=== PATIENT | female | born 1935 | race Caucasian/White ===

== ENCOUNTER → 2017-11-04 08:26 | Outpatient (CLI) | payer MEDICARE, OTHER, SELFPAY ==
[2017-11-04 13:36] LABS: INR 2.3 (1.0-3.5); Prothrombin Time 22.1 sec (9.3-10.8)
[2017-11-04 19:02] LABS: Chloride 95 mmol/L (98-107); Potassium 4.4 mmol/L (3.5-5.1); Sodium 129 mmol/L (136-145)
== END ==
PROVIDERS: PCP Internal Medicine; Visit Provider Family Medicine
DX: I10 Essential (primary) hypertension (principal); I48.91 Unspecified atrial fibrillation; Z79.01 Long term (current) use of anticoagulants
CPT/HCPCS: 36415; 80051; 85610

== ENCOUNTER → 2017-12-07 13:06 | Outpatient (BNVA) | payer MEDICARE, OTHER, SELFPAY | PROVIDERS: PCP Internal Medicine; Visit Provider Student in an Organized Health Care Education/Training Program | DX: I21.3 ST elevation (STEMI) myocardial infarction of unspecified site (principal); I50.20 Unspecified systolic (congestive) heart failure; I11.0 Hypertensive heart disease with heart failure; I48.0 Paroxysmal atrial fibrillation; J45.909 Unspecified asthma, uncomplicated | CPT/HCPCS: 99214 ==

== ENCOUNTER 2017-12-07 14:15 | Outpatient (CLI) | payer MEDICARE, OTHER, SELFPAY | END 2017-12-07 14:35 | PROVIDERS: PCP Internal Medicine; Visit Provider Student in an Organized Health Care Education/Training Program | DX: I48.91 Unspecified atrial fibrillation (principal); I25.2 Old myocardial infarction; Z95.5 Presence of coronary angioplasty implant and graft; I25.10 Atherosclerotic heart disease of native coronary artery without angina pectoris | CPT/HCPCS: 99214; 93005; 93010 ==

== ENCOUNTER 2017-12-19 11:19 | Outpatient (CLI) | payer MEDICARE, OTHER, SELFPAY ==
[2017-12-19 12:20] LABS: INR 2.6 (1.0-3.5); Prothrombin Time 24.5 sec (9.3-10.8)
[2017-12-19 12:40] LABS: Hemoglobin A1C 7.6 % (4.5-6.2)
[2017-12-19 13:01] LABS: Sodium 128 mmol/L (136-145)
== END 2017-12-19 11:39 ==
PROVIDERS: PCP Family Medicine; Visit Provider Family Medicine
DX: E11.65 Type 2 diabetes mellitus with hyperglycemia (principal); E87.1 Hypo-osmolality and hyponatremia; I48.91 Unspecified atrial fibrillation; Z79.01 Long term (current) use of anticoagulants
CPT/HCPCS: 36415; 83036; 84295; 85610

== ENCOUNTER 2018-02-01 10:43 | Outpatient (CLI) | payer MEDICARE, OTHER, SELFPAY ==
[2018-02-01 12:41] LABS: INR 2.9 (1.0-3.5); Prothrombin Time 27.3 sec (9.3-10.8)
== END 2018-02-01 11:03 ==
PROVIDERS: PCP Internal Medicine; Visit Provider Family Medicine
DX: I48.91 Unspecified atrial fibrillation (principal); Z79.01 Long term (current) use of anticoagulants
CPT/HCPCS: 36415; 85610

== ENCOUNTER 2018-03-07 13:13 | Outpatient (CLI) | payer MEDICARE, OTHER, SELFPAY ==
[2018-03-07 13:50] LABS: Hemoglobin A1C 8.2 % (4.5-6.2)
[2018-03-07 13:54] LABS: INR 2.6 (1.0-3.5); Prothrombin Time 24.2 sec (9.3-10.8)
[2018-03-07 14:42] LABS: Sodium 130 mmol/L (136-145)
== END 2018-03-07 13:33 ==
PROVIDERS: PCP Internal Medicine; Visit Provider Family Medicine
DX: E11.65 Type 2 diabetes mellitus with hyperglycemia (principal); E87.1 Hypo-osmolality and hyponatremia; I48.91 Unspecified atrial fibrillation; Z79.01 Long term (current) use of anticoagulants
CPT/HCPCS: 36415; 83036; 84295; 85610

== ENCOUNTER 2018-05-03 11:58 | Outpatient (CLI) | payer MEDICARE, OTHER, SELFPAY ==
[2018-05-03 12:52] LABS: INR 2.1 (0.9-1.1); Prothrombin Time 21.5 sec (9.3-11.0)
== END 2018-05-03 12:18 ==
PROVIDERS: PCP Internal Medicine; Visit Provider Family Medicine
DX: I48.91 Unspecified atrial fibrillation (principal); Z79.01 Long term (current) use of anticoagulants
CPT/HCPCS: 36415; 85610

== ENCOUNTER 2018-06-07 12:16 | Outpatient (CLI) | payer MEDICARE, OTHER, SELFPAY | END 2018-06-07 12:36 | PROVIDERS: PCP Internal Medicine; Visit Provider Student in an Organized Health Care Education/Training Program | DX: I25.10 Atherosclerotic heart disease of native coronary artery without angina pectoris (principal); I50.9 Heart failure, unspecified; I48.0 Paroxysmal atrial fibrillation; I10 Essential (primary) hypertension; R53.83 Other fatigue; E11.40 Type 2 diabetes mellitus with diabetic neuropathy, unspecified | CPT/HCPCS: 99214; 93005; 93010 ==

== ENCOUNTER 2018-06-08 08:11 | Outpatient (CLI) | payer MEDICARE, OTHER, SELFPAY ==
[2018-06-08 11:24] LABS: Abs Immature Grans 0.01 k/cumm (0.0-0.09); Absolute Basophil Count 0.04 k/cumm (0.0-0.2); Absolute Eosinophil Count 0.06 k/cumm (0.0-0.7); Absolute Lymphocyte Count 1.85 k/cumm (1.2-3.4); Absolute Monocyte Count 0.64 k/cumm (0.11-0.7); Basophils % 0.6; HCT 36.2 % (36.0-46.0); HGB 12.4 g/dL (12.0-15.5); Immature Grans % 0.2; Lymphocytes % 29.4; Mean Corp. HGB Concentration 34.3 g/dL (32.0-36.0); Mean Corpuscular Hemoglobin 30.5 pg (27.0-33.0); Mean Corpuscular Volume 88.9 fL (80-95); Mean Platelet Volume 13.3 fL (8.0-11.0); Monocytes % 10.2; Neutrophils % 58.6; Platelet Count 190 x1000/uL (130-400); RBC 4.07 m/cumm (4.00-5.20); RBC Distribution Width 13.3 % (11.7-14.6)
[2018-06-08 11:43] LABS: Prothrombin Time 29.9 sec (9.3-11.0)
[2018-06-08 11:57] LABS: Iron 103 ug/dL (50-175)
[2018-06-08 12:20] LABS: ALT 27 U/L (12-78); AST 18 U/L (15-37); Albumin 3.8 g/dL (3.4-5.0); Alkaline Phosphatase 91 U/L (46-116); Anion Gap 10.9 mmol/L (3-11); BUN 31 mg/dL (7-18); Bilirubin, Total 0.5 mg/dL (0.2-1.0); CO2 26.1 mmol/L (21.0-32.0); CREATININE 1.85 mg/dL (0.55-1.02); Calcium 9.4 mg/dL (8.5-10.1); Chloride 94 mmol/L (98-107); Cholesterol 143 mg/dL (50-200); Ferritin 32 ng/mL (8-388); Glucose 342 mg/dL (70-100); HDL Cholesterol 52 mg/dL (40-60); LDL CHOLESTEROL 74 mg/dL (<100); Magnesium 1.9 mg/dL (1.8-2.4); Potassium 4.8 mmol/L (3.5-5.1); Sodium 131 mmol/L (136-145); TSH (W/Ref FT4) 3.38 uIU/mL (0.358-3.74); Total Protein 7.4 g/dL (6.4-8.2); Triglyceride 122 mg/dL (30-150)
[2018-06-08 12:24] LABS: Vitamin D 25 Total 46.6 ng/ml (30-100)
[2018-06-08 12:46] LABS: Bilirubin, Direct 0.15 mg/dL (0.00-0.20); NT-proBNP 165 pg/mL
[2018-06-09 10:27] LABS: Transferrin 241 mg/dL (201-352)
== END 2018-06-08 08:31 ==
PROVIDERS: Family Medicine; Student in an Organized Health Care Education/Training Program; PCP Internal Medicine; Visit Provider Internal Medicine
DX: I25.10 Atherosclerotic heart disease of native coronary artery without angina pectoris (principal); I50.22 Chronic systolic (congestive) heart failure; I48.91 Unspecified atrial fibrillation; I10 Essential (primary) hypertension; R53.83 Other fatigue; Z79.01 Long term (current) use of anticoagulants
CPT/HCPCS: 36415; 80048; 80061; 80076; 82306; 83721; 82728; 83036; 83540; 83735; 83880; 84443; 84466; 85025; 85610

== ENCOUNTER 2018-07-19 10:52 | Outpatient (CLI) | payer MEDICARE, OTHER, SELFPAY ==
[2018-07-19 13:42] LABS: INR 2.1 (0.9-1.1); Prothrombin Time 21.1 sec (9.3-11.0)
== END 2018-07-19 11:12 ==
PROVIDERS: PCP Internal Medicine; Visit Provider Family Medicine
DX: I48.91 Unspecified atrial fibrillation (principal); Z79.01 Long term (current) use of anticoagulants
CPT/HCPCS: 36415; 85610

== ENCOUNTER 2018-08-30 14:54 | Emergency (ER) | payer MEDICARE, OTHER, SELFPAY ==
[2018-08-30] VITALS (32 sets, daily range): BP systolic 89–154; BP diastolic 60–100; PULSE 68–120; RESP 16–24; TEMP 36.6–37.2; O2SAT 96–99
--- NOTE | 2018-08-30 15:09 | W.ED.GENAD ---
Discharge Plan Disposition Patient Disposition: HOME Condition: Stable Discharge Details Chief Complaint: SOB Clinical Impression: Atrial fibrillation with RVR Primary Care Provider: Rad Yeh ED Provider: Dino Cox Natoma Meds and New Rx's Prescriptions: No Action amlodipine 10 mg tablet 10 mg PO DAILY Qty: 90 RF: 3 atorvastatin 40 mg tablet 40 mg PO HS Qty: 90 RF: 4 nitroglycerin 0.4 mg tablet, sublingual 0.4 mg Sublingual Q 5 MIN PRN Qty: 25 RF: 4 pantoprazole 40 mg tablet,delayed release (DR/EC) 40 mg PO DAILY Qty: 90 RF: 4 amiodarone 200 mg tablet 200 mg PO DAILY Qty: 30 RF: 11 spironolactone 50 mg tablet 50 mg PO DAILY Qty: 90 RF: 3 metoprolol succinate 50 mg tablet extended release 24 hr 50 mg PO DAILY Qty: 90 RF: 3 warfarin 5 mg tablet 5 mg PO DIRECTED RF: 0 furosemide 20 mg tablet 20 - 40 mg PO every other day RF: 0 pen needle, diabetic [BD Ultra-Fine Juliann Pen Needle] 32 gauge x 5/32 needle .ROUTE .MEDSUPPLY Qty: 100 RF: 3 Tresiba FlexTouch U-100 100 unit/mL (3 mL) insulin pen 10 unit SC DAILY Qty: 3 RF: 2 multivitamin [Daily Multi-Vitamin] 1 EACH tablet 1 tab PO DAILY RF: 0 ascorbic acid (vitamin C) 500 MG tablet 2 tab PO DAILY PRN RF: 0 chromium picolinate 1,000 MCG tablet 1,000 mcg PO daily prn RF: 0 omega 600 mg PO DAILY RF: 0 lisinopril 40 mg tablet 40 mg PO BID Qty: 180 RF: 4 Discharge Instructions Instructions: Atrial Fibrillation (ED) Additional Instructions: You were in atrial fibrillation with rapid rates when you arrived here that was likely causing your symptoms You converted to a normal sinus rhythm before any medications were give Follow up with your primary care provider within 1 week if you have worsening shortness of breath, high fevers or chest pain/pressure return to the emergency department Medical Decision Making 83 yo history of diabetes with associated neuropathy, hypertension, hyperlipidemia, coronary artery disease (STEMI in Mar 2015 with cardiac arrest, KRISTOFER to LAD) and paroxysmal atrial fibrillation on coumadin, comes in with 3-4 days of slowly worsening shortness of breath. No fevers, denies chest pain. Today she felt iwas worsening with exertion and took a nitro with improvement in symptoms. She is in no distress on exam, has clear lungs, no murmurs and no pericardial effusion on bedside u/s. She is noted to be in afib with rvr with rates of 120-130 on exam. Will obtain lab work to eval for infarction as well as anemia and chest xray. Has no evidence of dvt on exam and no pleuritic pain to suggest PE and wouldn't expect symptoms to improve with nitro if this were due to pe pt remains stable and concerted to NSR before lopressor given and she states her symptoms have resolved. She feels well. Her labs show mild low K and mag and barely outside the normal range of troponin of 0.07. She feels well and after having long discussion about admission vs repeat troponin she has chosen to have repeat troponin drawn and if not significantly elevated d/c home and f/u with pcp. second troponin unchanged and she remains asymptomatic. Given this and reassuring lab work feel she is safe for d/c. Will have her f/u with pcp and return precautions given Medical Records Medical records reviewed: Yes I reviewed the patient's medical records. Imaging Data Radiologic Study: Attestation: I personally reviewed and interpreted this imaging study as follows: Imaging: X-Ray Radiologist's impression: IMPRESSION: Chronic changes but no acute cardiopulmonary process. Lab Data Lab results reviewed: Yes I reviewed the patient's lab results. ECG Data Attestation: I personally reviewed and interpreted this ECG (s) as follows: Prior ECG tracings: available for review Interpretation: afib, rates of 116, qtc 492, no acute st t wave changes when compared to old ekg, negative sgarbossa criteria 2nd ekg sinsus rhythm, rateo f75, no acute ischemic changes HPI General Mode of arrival: EMS. Date/Time Provider Initiated Documentation: 08/30/18 15:08. Limitations to Documentation: no limitations. Information obtained by: patient. History of Present Illness 83 year old F presents to the emergency department with the chief complaint of shortness of breath, described as moderate, Patient reports no radiation. Patient started experiencing this day(s) (3) and it has been constant. Rest improves symptom(s), Patient notes weakness. Patient did receive the following treatments prior to arrival, other (nitro) Related Data Home Medications Medication Instructions Recorded Confirmed ascorbic acid (vitamin C) 2 tab PO DAILY PRN 07/15/12 08/30/18 multivitamin [Daily Multi-Vitamin] 1 tab PO DAILY 07/15/12 08/30/18 [place] 600 mg PO DAILY 08/13/14 08/30/18 chromium picolinate 1,000 mcg PO daily prn 08/13/14 08/30/18 amiodarone 200 mg tablet 200 mg PO DAILY #30 tab-cap 02/07/18 08/30/18 amlodipine 10 mg tablet 10 mg PO DAILY #90 tab-cap 02/07/18 08/30/18 atorvastatin 40 mg tablet 40 mg PO HS #90 tab-cap 02/07/18 08/30/18 nitroglycerin 0.4 mg sublingual 0.4 mg SUBLINGUAL Q 5 MIN PRN #25 02/07/18 08/30/18 tablet tab-cap pantoprazole 40 mg tablet,delayed 40 mg PO DAILY #90 tab-cap 02/07/18 08/30/18 release spironolactone 50 mg tablet 50 mg PO DAILY #90 tab-cap 02/07/18 08/30/18 lisinopril 40 mg tablet 40 mg PO BID #180 tab-cap 05/03/18 08/30/18 metoprolol succinate ER 50 mg 50 mg PO DAILY #90 tab 05/16/18 08/30/18 tablet,extended release 24 hr warfarin 5 mg tablet 5 mg PO DIRECTED tab-cap 06/07/18 08/30/18 insulin degludec (U-100) 100 10 unit SC DAILY #3 ml 06/20/18 08/30/18 unit/mL (3 mL) subcutaneous pen pen needle, diabetic 32 gauge x #100 each 06/20/18 08/17/18 5/32 furosemide 20 mg tablet 20 - 40 mg PO every other day 08/17/18 08/30/18 tab-cap Previous Rx's Medication Instructions Recorded amiodarone 200 mg tablet 200 mg PO DAILY #30 tab-cap 02/07/18 amlodipine 10 mg tablet 10 mg PO DAILY #90 tab-cap 02/07/18 atorvastatin 40 mg tablet 40 mg PO HS #90 tab-cap 02/07/18 nitroglycerin 0.4 mg sublingual 0.4 mg SUBLINGUAL Q 5 MIN PRN #25 02/07/18 tablet tab-cap pantoprazole 40 mg tablet,delayed 40 mg PO DAILY #90 tab-cap 02/07/18 release spironolactone 50 mg tablet 50 mg PO DAILY #90 tab-cap 02/07/18 lisinopril 40 mg tablet 40 mg PO BID #180 tab-cap 05/03/18 metoprolol succinate ER 50 mg 50 mg PO DAILY #90 tab 05/16/18 tablet,extended release 24 hr insulin degludec (U-100) 100 10 unit SC DAILY #3 ml 06/20/18 unit/mL (3 mL) subcutaneous pen pen needle, diabetic 32 gauge x #100 each 06/20/18 Allergies Allergy/AdvReac Type Severity Reaction Status Date / Time Tetanus Vaccines and Toxoid Allergy Intermediate Unverified 08/17/18 12:04 diltiazem AdvReac Severe tired, Unverified 08/17/18 12:04 hand pain doxycycline AdvReac Severe GI UPSET Unverified 08/17/18 12:04 verapamil AdvReac Severe dizziness Unverified 08/17/18 12:04 doxazosin mesylate AdvReac Intermediate muscle Unverified 08/17/18 12:04 [From Sydnee] aches atenolol AdvReac Mild leg pain Unverified 08/17/18 12:04 Review of Systems Review of Systems All systems reviewed & are unremarkable except as noted in HPI and below Constitutional Denies chills and Denies fever(s) Cardiovascular Denies chest pain Respiratory Denies cough Gastrointestinal Denies abdominal pain, Denies nausea and Denies vomiting Integumentary/Breasts Denies rash [facility] Social History Smoking/Tobacco Use Status: Never Alcohol Intake: never Drug use: Never Substance use type: does not use Pets and animals: Yes Pets and animals: cat(s) and dog(s) Frequency: does not exercise Faviola/Nondenominational: Johovah Witness Agree to transfusion: No Do you feel safe at home: Yes Do you feel safe in your relationship?: Yes Exam Const General: no acute distress Orientation: alert HENMT Head: normal to inspection Ears: external ears normal General nose exam: external nose normal Mouth: moist mucous membranes Eyes General: appearance normal, both eyes and all related structures Neck Neck: normal visual inspection Resp Effort & Inspection: normal respiratory effort and able to speak in complete sentences Cardio Jugular venous pressure: no JVD Skin General skin exam: no rashes or lesions noted Neuro General: alert and oriented x3 Extrem General: normal to inspection Psych Mental Status: mental status grossly normal
--- NOTE | 2018-08-30 15:20 | DI.RAD_ITS ---
SYMPTOM/DIAGNOSIS: SHORTNESS OF BREATH CHEST X-RAY: PA and lateral. Comparison is 09/24/17 Heart size is within normal limits. There is ectasia and tortuosity of the thoracic aorta which is unchanged. The lungs show no evidence of congestive heart failure or pneumonia. No effusions or pneumothoraces are identified. Mild degenerative changes are seen in the spine. IMPRESSION: No acute pulmonary process.
[2018-08-30] MEDS: Aspirin 81 MG CHEW 324 MG CH (15:48)
[2018-08-30 15:49] LABS: Abs Immature Grans 0.02 k/cumm (0.0-0.09); Absolute Basophil Count 0.04 k/cumm (0.0-0.2); Absolute Eosinophil Count 0.06 k/cumm (0.0-0.7); Absolute Lymphocyte Count 1.42 k/cumm (1.2-3.4); Absolute Monocyte Count 0.65 k/cumm (0.11-0.7); Absolute Neutrophil Count 4.71 k/cumm (1.2-6.7); Basophils % 0.6; Eosinophils % 0.9; HCT 37.4 % (36.0-46.0); HGB 12.5 g/dL (12.0-15.5); Immature Grans % 0.3; Lymphocytes % 20.6; Mean Corp. HGB Concentration 33.4 g/dL (32.0-36.0); Mean Corpuscular Hemoglobin 30.3 pg (27.0-33.0); Mean Corpuscular Volume 90.6 fL (80-95); Mean Platelet Volume 12.7 fL (8.0-11.0); Monocytes % 9.4; Neutrophils % 68.2; Platelet Count 185 x1000/uL (130-400); RBC 4.13 m/cumm (4.00-5.20); RBC Distribution Width 13.5 % (11.7-14.6)
[2018-08-30 16:07] LABS: INR 1.5 (0.9-1.1); Prothrombin Time 14.9 sec (9.3-11.0)
[2018-08-30 16:09] LABS: ALT 32 U/L (12-78); AST 19 U/L (15-37); Albumin 3.5 g/dL (3.4-5.0); Alkaline Phosphatase 101 U/L (46-116); Anion Gap 8.4 mmol/L (3-11); BUN 22 mg/dL (7-18); Bilirubin, Total 0.3 mg/dL (0.2-1.0); CO2 27.6 mmol/L (21.0-32.0); CREATININE 1.34 mg/dL (0.55-1.02); Chloride 98 mmol/L (98-107); Estimated GFR 37.87 (mL/min/1.73m2); Glucose 310 mg/dL (70-100); Magnesium 1.7 mg/dL (1.8-2.4); NT-proBNP 891 pg/mL; Potassium 3.1 mmol/L (3.5-5.1); Sodium 134 mmol/L (136-145); Total Protein 7.4 g/dL (6.4-8.2)
[2018-08-30 16:11] LABS: Troponin I 0.07 ng/mL (0.00-0.06)
--- NOTE | 2018-08-30 16:18 | DI.VRAD_ITS ---
EXAM: XR Chest, 2 Views EXAM DATE/TIME: 08/30/2018 4:07 PM CLINICAL HISTORY: 83 years old, female; Signs and symptoms; Shortness of breath TECHNIQUE: Imaging protocol: XR of the chest, 2 views. COMPARISON: CR CHEST 2 VIEWS PA,LAT 09/24/2017 1:44 PM FINDINGS: Lungs: There is mild scarring at the lung bases. Pleural space: Unremarkable. No pleural effusion. No pneumothorax. Heart/Mediastinum: Unremarkable. No cardiomegaly. Vasculature: There is moderate ectasia of the thoracic aorta. Bones/joints: There is mild scoliosis of the thoracic spine. IMPRESSION: Chronic changes but no acute cardiopulmonary process. Dictated and Authenticated by: Dino Benitez MD. Ordering:NELL Sun MD
[2018-08-30 18:02] LABS: Troponin I 0.07 ng/mL (0.00-0.06)
--- NOTE | 2018-08-31 09:41 | NUR.NOTE ---
Nursing Note: Referral faxed to [facility] for follow up. Ev Ruiz
== END 2018-08-30 18:35 | disposition home or self-care (01) ==
PROVIDERS: Emergency Provider Emergency Medicine; PCP Family Medicine
DX: I48.0 Paroxysmal atrial fibrillation (principal); E11.40 Type 2 diabetes mellitus with diabetic neuropathy, unspecified; I10 Essential (primary) hypertension; Z79.01 Long term (current) use of anticoagulants
CPT/HCPCS: 36415; 80053; 93005; 96374; 99285; 71046; 83735; 83880; 84484; 85025; 85610; 85730; 93010

== ENCOUNTER 2018-09-13 09:17 | Outpatient (CLI) | payer MEDICARE, OTHER, SELFPAY ==
[2018-09-13 12:55] LABS: INR 1.8 (0.9-1.1); Prothrombin Time 17.7 sec (9.3-11.0)
[2018-09-13 13:43] LABS: Anion Gap 9.8 mmol/L (3-11); BUN 25 mg/dL (7-18); CO2 27.2 mmol/L (21.0-32.0); CREATININE 1.44 mg/dL (0.55-1.02); Chloride 98 mmol/L (98-107); Estimated GFR 34.85 (mL/min/1.73m2); Glucose 259 mg/dL (70-100); Magnesium 1.8 mg/dL (1.8-2.4); NT-proBNP 357 pg/mL; Potassium 4.4 mmol/L (3.5-5.1); Sodium 135 mmol/L (136-145)
== END 2018-09-13 09:37 ==
PROVIDERS: PCP Family Medicine; Visit Provider Family Medicine
DX: E11.9 Type 2 diabetes mellitus without complications (principal); I10 Essential (primary) hypertension; I48.91 Unspecified atrial fibrillation; Z79.01 Long term (current) use of anticoagulants; R06.02 Shortness of breath
CPT/HCPCS: 36415; 80048; 83735; 83880; 85610

== ENCOUNTER 2018-09-20 09:22 | Outpatient (CLI) | payer MEDICARE, OTHER, SELFPAY ==
[2018-09-20 13:22] LABS: Prothrombin Time 25.7 sec (9.3-11.0)
[2018-09-20 13:25] LABS: INR 2.5 (0.9-1.1)
== END 2018-09-20 09:42 ==
PROVIDERS: PCP Family Medicine; Visit Provider Family Medicine
DX: I48.91 Unspecified atrial fibrillation (principal); Z79.01 Long term (current) use of anticoagulants
CPT/HCPCS: 36415; 85610

== ENCOUNTER 2018-10-04 08:31 | Outpatient (CLI) | payer MEDICARE, OTHER, SELFPAY ==
[2018-10-04 13:10] LABS: INR 3.3 (0.9-1.1); Prothrombin Time 33.4 sec (9.3-11.0)
== END 2018-10-04 08:51 ==
PROVIDERS: PCP Family Medicine; Visit Provider Family Medicine
DX: I48.91 Unspecified atrial fibrillation (principal); Z79.01 Long term (current) use of anticoagulants
CPT/HCPCS: 36415; 85610

== ENCOUNTER → 2018-10-11 09:16 | Outpatient (BNVA) | payer MEDICARE, OTHER, SELFPAY | PROVIDERS: PCP Family Medicine; Visit Provider Student in an Organized Health Care Education/Training Program | DX: R69 Illness, unspecified (principal) ==

== ENCOUNTER 2018-10-11 09:27 | Outpatient (CLI) | payer MEDICARE, OTHER, SELFPAY | END 2018-10-11 09:47 | PROVIDERS: PCP Family Medicine; Referring Provider Student in an Organized Health Care Education/Training Program; Visit Provider Student in an Organized Health Care Education/Training Program | DX: I25.10 Atherosclerotic heart disease of native coronary artery without angina pectoris (principal); Z95.818 Presence of other cardiac implants and grafts; I48.0 Paroxysmal atrial fibrillation; I10 Essential (primary) hypertension; E11.40 Type 2 diabetes mellitus with diabetic neuropathy, unspecified; Z79.1 Long term (current) use of non-steroidal anti-inflammatories (NSAID) | CPT/HCPCS: 99215 ==

== ENCOUNTER 2018-10-11 10:40 | Outpatient (CLI) | payer MEDICARE, OTHER, SELFPAY ==
[2018-10-11 11:19] LABS: INR 2.9 (0.9-1.1); Prothrombin Time 29.6 sec (9.3-11.0)
== END 2018-10-11 11:00 ==
PROVIDERS: PCP Family Medicine; Visit Provider Family Medicine
DX: I48.0 Paroxysmal atrial fibrillation (principal); Z79.01 Long term (current) use of anticoagulants; I25.10 Atherosclerotic heart disease of native coronary artery without angina pectoris; Z95.818 Presence of other cardiac implants and grafts; I10 Essential (primary) hypertension; E11.40 Type 2 diabetes mellitus with diabetic neuropathy, unspecified; Z79.1 Long term (current) use of non-steroidal anti-inflammatories (NSAID)
CPT/HCPCS: 36415; 99215; 85610

== ENCOUNTER 2018-10-18 11:11 | Outpatient (CLI) | payer MEDICARE, OTHER, SELFPAY ==
[2018-10-18 11:44] LABS: Hemoglobin A1C 9.6 % (4.5-6.2)
[2018-10-18 11:52] LABS: Prothrombin Time 41.8 sec (9.3-11.0)
[2018-10-18 12:02] LABS: INR 4.1 (0.9-1.1)
== END 2018-10-18 11:31 ==
PROVIDERS: PCP Family Medicine; Visit Provider Family Medicine
DX: E11.9 Type 2 diabetes mellitus without complications (principal); I48.91 Unspecified atrial fibrillation; Z79.01 Long term (current) use of anticoagulants
CPT/HCPCS: 36415; 83036; 85610

== ENCOUNTER 2018-10-19 08:00 | Outpatient (CLI) | payer MEDICARE, OTHER, SELFPAY ==
[2018-10-19 13:20] LABS: Prothrombin Time 42.6 sec (9.3-11.0)
[2018-10-19 13:25] LABS: INR 4.2 (0.9-1.1)
== END 2018-10-19 08:20 ==
PROVIDERS: PCP Family Medicine; Visit Provider Family Medicine
DX: I48.91 Unspecified atrial fibrillation (principal); Z79.01 Long term (current) use of anticoagulants
CPT/HCPCS: 36415; 85610

== ENCOUNTER 2018-10-20 08:52 | Outpatient (CLI) | payer MEDICARE, OTHER, SELFPAY ==
[2018-10-20 14:04] LABS: INR 2.5 (0.9-1.1); Prothrombin Time 25.1 sec (9.3-11.0)
== END 2018-10-20 09:12 ==
PROVIDERS: PCP Family Medicine; Visit Provider Family Medicine
DX: I48.91 Unspecified atrial fibrillation (principal); Z79.01 Long term (current) use of anticoagulants
CPT/HCPCS: 36415; 85610

== ENCOUNTER 2018-10-27 11:45 | Outpatient (CLI) | payer MEDICARE, OTHER, SELFPAY ==
[2018-10-27 12:43] LABS: INR 3.4 (0.9-1.1)
== END 2018-10-27 12:05 ==
PROVIDERS: PCP Family Medicine; Visit Provider Family Medicine
DX: I48.91 Unspecified atrial fibrillation (principal); Z79.01 Long term (current) use of anticoagulants
CPT/HCPCS: 36415; 85610

== ENCOUNTER 2018-11-03 11:26 | Outpatient (CLI) | payer MEDICARE, OTHER, SELFPAY ==
[2018-11-03 12:25] LABS: Prothrombin Time 41.6 sec (9.3-11.0)
[2018-11-03 12:28] LABS: INR 4.1 (0.9-1.1)
== END 2018-11-03 11:46 ==
PROVIDERS: PCP Family Medicine; Visit Provider Family Medicine
DX: I48.91 Unspecified atrial fibrillation (principal); Z79.01 Long term (current) use of anticoagulants
CPT/HCPCS: 36415; 85610

== ENCOUNTER 2018-11-04 09:14 | Outpatient (CLI) | payer MEDICARE, OTHER, SELFPAY ==
[2018-11-04 09:50] LABS: Prothrombin Time 32.5 sec (9.3-11.0)
[2018-11-04 10:27] LABS: INR 3.2 (0.9-1.1)
== END 2018-11-04 09:34 ==
PROVIDERS: PCP Family Medicine; Visit Provider Family Medicine
DX: I48.91 Unspecified atrial fibrillation (principal); Z79.01 Long term (current) use of anticoagulants
CPT/HCPCS: 36415; 85610

== ENCOUNTER 2018-11-08 07:56 | Day surgery (SDC) | payer MEDICARE, OTHER, SELFPAY ==
[2018-11-08 08:28] VITALS: BP 116/75; PULSE 112; RESP 20; TEMP 36.6; O2SAT 98
[2018-11-08] MEDS: Normal Saline 1,000 ML 30 ML IV (09:15)
[2018-11-08 10:32] LABS: INR 2.3 (0.9-1.1)
--- NOTE | 2018-11-08 10:56 | W.PM.DSUDISC ---
Discharge Plan Disposition Patient Disposition: HOME Condition: Stable Discharge Details Attending Provider: Charli Noe Primary Care Provider: Rad Yeh Home Meds and New Rx's Prescriptions: Continued atorvastatin 40 mg tablet 40 mg PO HS Qty: 90 RF: 4 nitroglycerin 0.4 mg tablet, sublingual 0.4 mg Sublingual Q 5 MIN PRN Qty: 25 RF: 4 pantoprazole 40 mg tablet,delayed release (DR/EC) 40 mg PO DAILY Qty: 90 RF: 4 spironolactone 50 mg tablet 50 mg PO DAILY Qty: 90 RF: 3 amiodarone 200 mg tablet 200 mg PO BID Qty: 60 RF: 11 amlodipine 10 mg tablet 10 mg PO DAILY RF: 0 warfarin 5 mg tablet 5 mg PO DIRECTED RF: 0 furosemide 20 mg tablet 20 mg PO DAILY RF: 0 (DME) pen needle, diabetic [BD Ultra-Fine Juliann Pen Needle] 32 gauge x 5/32 needle See Dose Instructions .ROUTE .MEDSUPPLY Qty: 100 RF: 3 Tresiba FlexTouch U-100 100 unit/mL (3 mL) insulin pen 10 unit SC DAILY Qty: 3 RF: 2 multivitamin [Daily Multi-Vitamin] 1 EACH tablet 1 tab PO DAILY RF: 0 ascorbic acid (vitamin C) 500 MG tablet 2 tab PO DAILY PRN RF: 0 chromium picolinate 1,000 MCG tablet 1,000 mcg PO daily prn RF: 0 omega 600 mg PO DAILY RF: 0 lisinopril 40 mg tablet 40 mg PO BID Qty: 180 RF: 4 Changed metoprolol succinate 50 mg tablet extended release 24 hr 25 mg PO BID Qty: 180 RF: 3 Discharge Instructions Instructions: Cardioversion (GEN) Additional Instructions: Continue coumadin as directed.\ Continue amiodarone 200 mg daily. Reduce metoprolol Activity:: Activity as Tolerated Shower/Bathe:: 24 hours Activity:: Activity as Tolerated Diet:: Other Discharge Orders Discharge Orders: Discharge Order (Routine); Ordered 11/08/18 Ordered By: Charli Noe
--- NOTE | 2018-11-08 11:33 | CARD_ITS ---
NOVEMBER 08, 2018 PROCEDURE: Cardioversion PREPROCEDURAL DIAGNOSIS: Atrial fibrillation. POSTPROCEDURAL DIAGNOSIS: Sinus rhythm. COMMENTS: After verbal and informed consent were obtained the patient was successfully cardioverted with a single 150 joule shock. The actual amount of energy delivered was 185 joules. There were no immediate complications. FOLLOW-UP: Continue Coumadin as directed. Continue Amiodarone 200 mg. daily. Decreased Metoprolol succinate to 25 mg. b.i.d. Follow-up with cardiology in four weeks.
[2018-11-08 11:35] VITALS: BP 108/64; PULSE 68; RESP 17; TEMP 36.4; O2SAT 98
== END 2018-11-08 12:38 | disposition home or self-care (01) ==
PROVIDERS: PCP Family Medicine; Visit Provider Student in an Organized Health Care Education/Training Program
PROC: 5A2204Z Restoration of Cardiac Rhythm, Single (ICD-10-PCS; CPT 92960; principal; 2018-11-08 09:00)
DX: I48.0 Paroxysmal atrial fibrillation (principal); Z79.01 Long term (current) use of anticoagulants
CPT/HCPCS: 92960; 99215; 85610; 93005; 93010

== ENCOUNTER 2018-11-15 12:31 | Outpatient (CLI) | payer MEDICARE, OTHER, SELFPAY ==
[2018-11-15 12:57] LABS: INR 2.4 (0.9-1.1); Prothrombin Time 24.1 sec (9.3-11.0)
== END 2018-11-15 12:51 ==
PROVIDERS: PCP Family Medicine; Visit Provider Family Medicine
DX: I48.91 Unspecified atrial fibrillation (principal); Z79.01 Long term (current) use of anticoagulants
CPT/HCPCS: 36415; 85610

== ENCOUNTER 2018-11-15 13:10 | Outpatient (CLI) | payer MEDICARE, OTHER, SELFPAY | END 2018-11-15 13:30 | PROVIDERS: PCP Family Medicine; Visit Provider Student in an Organized Health Care Education/Training Program | DX: I48.0 Paroxysmal atrial fibrillation (principal); I25.10 Atherosclerotic heart disease of native coronary artery without angina pectoris; I10 Essential (primary) hypertension | CPT/HCPCS: 36415; 85610; 93005; 93010 ==

== ENCOUNTER 2018-11-22 11:08 | Outpatient (CLI) | payer MEDICARE, OTHER, SELFPAY ==
[2018-11-22 13:00] LABS: INR 3.3 (0.9-1.1)
== END 2018-11-22 11:28 ==
PROVIDERS: PCP Family Medicine; Visit Provider Family Medicine
DX: I48.91 Unspecified atrial fibrillation (principal); Z79.01 Long term (current) use of anticoagulants
CPT/HCPCS: 36415; 85610

== ENCOUNTER 2018-11-29 08:22 | Outpatient (CLI) | payer MEDICARE, OTHER, SELFPAY ==
[2018-11-29 13:01] LABS: INR 2.7 (0.9-1.1); Prothrombin Time 26.8 sec (9.3-11.0)
== END 2018-11-29 08:42 ==
PROVIDERS: PCP Family Medicine; Visit Provider Family Medicine
DX: I48.91 Unspecified atrial fibrillation (principal); Z79.01 Long term (current) use of anticoagulants
CPT/HCPCS: 36415; 85610

== ENCOUNTER 2018-12-06 08:54 | Outpatient (CLI) | payer MEDICARE, OTHER, SELFPAY | END 2018-12-06 09:14 | PROVIDERS: PCP Family Medicine; Visit Provider Student in an Organized Health Care Education/Training Program | DX: I25.10 Atherosclerotic heart disease of native coronary artery without angina pectoris (principal); I50.22 Chronic systolic (congestive) heart failure; I48.0 Paroxysmal atrial fibrillation; I11.0 Hypertensive heart disease with heart failure; E11.42 Type 2 diabetes mellitus with diabetic polyneuropathy; Z79.4 Long term (current) use of insulin | CPT/HCPCS: 36415; 99214; 85610; 93005; 93010 ==

== ENCOUNTER 2018-12-06 11:25 | Outpatient (CLI) | payer MEDICARE, OTHER, SELFPAY ==
[2018-12-06 12:47] LABS: INR 2.5 (0.9-1.1)
== END 2018-12-06 11:45 ==
PROVIDERS: PCP Family Medicine; Visit Provider Student in an Organized Health Care Education/Training Program
DX: I48.91 Unspecified atrial fibrillation (principal); Z79.01 Long term (current) use of anticoagulants
CPT/HCPCS: 36415; 85610

== ENCOUNTER 2018-12-07 00:57 | Outpatient (CLI) | payer MEDICARE, OTHER, SELFPAY ==
--- NOTE | 2018-12-07 13:55 | DI.MRI_ITS ---
SYMPTOMS/DIAGNOSIS: PROGRESSIVE LOW BACK PAIN, M48.00, SPINAL STENOSIS, LEFT THIGH PAIN LUMBOSACRAL SPINE MRI: MRI examination of the lumbosacral spine was performed according to the usual protocol. Current examination is compared with previous examination of 12/06/16. There is moderate biconvex thoracolumbar scoliosis. At L1-2, there are no significant findings apart from loss of intradiscal signal and loss of disc height. At L2-3, there is evidence of disc degeneration and disc bulge with facet hypertrophy also noted. There is moderate central canal spinal stenosis and there is bilateral neural foraminal stenosis, left greater than right. At L3-4, there is moderate disc bulge. There are facet degenerative changes. There is moderate central canal spinal stenosis. There is bilateral neural foraminal stenosis, left greater than right. At L4-5, there is a spondylolisthesis, which is estimated at 15% of the vertebral width, little if any change from the previous examination. Prominent disc bulge and moderate central to left-sided disc herniation. No change from prior study. There is severe central canal spinal stenosis and bilateral severe neural foraminal stenosis. At L5-S1, there is facet hypertrophic degenerative change. No disc herniation seen. No central canal spinal stenosis. Mild narrowing of left neural foramen, normal right neural foramen. CONCLUSION: Multilevel findings as described above. Please see the above discussion for findings at individual levels. The most severe changes are seen at L4-5 where there is severe central canal spinal stenosis and severe bilateral neural foraminal stenosis. No interval change from prior MR of 12/06/2016.
== END 2018-12-07 01:17 ==
PROVIDERS: PCP Family Medicine; Visit Provider Family Medicine
DX: M54.5 Low back pain; M79.605 Pain in left leg; M48.061 Spinal stenosis, lumbar region without neurogenic claudication; M43.16 Spondylolisthesis, lumbar region; M51.36 Other intervertebral disc degeneration, lumbar region
CPT/HCPCS: 72148

== ENCOUNTER 2018-12-13 08:20 | Outpatient (CLI) | payer MEDICARE, OTHER, SELFPAY ==
[2018-12-13 12:53] LABS: INR 2.3 (0.9-1.1); Prothrombin Time 22.8 sec (9.3-11.0)
== END 2018-12-13 08:40 ==
PROVIDERS: PCP Family Medicine; Visit Provider Family Medicine
DX: I48.91 Unspecified atrial fibrillation (principal); Z79.01 Long term (current) use of anticoagulants
CPT/HCPCS: 36415; 85610

== ENCOUNTER 2018-12-20 09:31 | Outpatient (CLI) | payer MEDICARE, OTHER, SELFPAY ==
[2018-12-20 12:59] LABS: COMMENT (LAB VIEW ONLY) 54.33 mg/dL; Microalb ug/mg Crea 81.5 ug/mg Cr
[2018-12-20 13:29] LABS: Hemoglobin A1C 8.6 % (4.5-6.2)
[2018-12-20 13:31] LABS: Prothrombin Time 20.2 sec (9.3-11.0)
== END 2018-12-20 09:51 ==
PROVIDERS: PCP Family Medicine; Visit Provider Family Medicine
DX: E11.65 Type 2 diabetes mellitus with hyperglycemia (principal); I10 Essential (primary) hypertension; I48.1 Persistent atrial fibrillation; Z79.01 Long term (current) use of anticoagulants
CPT/HCPCS: 36415; 82043; 82570; 83036; 85610

== ENCOUNTER 2019-01-02 11:34 | Outpatient (CLI) | payer MEDICARE, OTHER, SELFPAY ==
[2019-01-02 12:34] LABS: INR 2.4 (0.9-1.1)
== END 2019-01-02 11:54 ==
PROVIDERS: PCP Family Medicine; Visit Provider Family Medicine
DX: I48.91 Unspecified atrial fibrillation (principal); Z79.01 Long term (current) use of anticoagulants
CPT/HCPCS: 36415; 85610

== ENCOUNTER → 2019-01-25 08:13 | Outpatient (BNVA) | payer MEDICARE, OTHER, SELFPAY | PROVIDERS: PCP Family Medicine; Referring Provider Family Medicine; Visit Provider Psychiatry & Neurology Neurology | DX: G56.03 Carpal tunnel syndrome, bilateral upper limbs (principal); M48.061 Spinal stenosis, lumbar region without neurogenic claudication; M21.372 Foot drop, left foot; I10 Essential (primary) hypertension; E11.9 Type 2 diabetes mellitus without complications; Z79.4 Long term (current) use of insulin | CPT/HCPCS: 95909; 99204; 99215 ==

== ENCOUNTER 2019-02-12 12:42 | Outpatient (CLI) | payer MEDICARE, OTHER, SELFPAY ==
[2019-02-12 12:23] LABS: INR 1.5 (0.9-1.1); Prothrombin Time 14.9 sec (9.3-11.0)
== END 2019-02-12 13:02 ==
PROVIDERS: PCP Family Medicine; Visit Provider Family Medicine
DX: I48.91 Unspecified atrial fibrillation (principal); Z79.01 Long term (current) use of anticoagulants
CPT/HCPCS: 36415; 85610

== ENCOUNTER 2019-02-23 10:55 | Outpatient (CLI) | payer MEDICARE, OTHER, SELFPAY ==
[2019-02-23 14:12] LABS: Prothrombin Time 19.7 sec (9.3-11.0)
== END 2019-02-23 11:15 ==
LOC: LOS 11:00 → LBO 13:47
PROVIDERS: PCP Family Medicine; Visit Provider Family Medicine
DX: I48.91 Unspecified atrial fibrillation (principal); Z79.01 Long term (current) use of anticoagulants
CPT/HCPCS: 36415; 85610

== ENCOUNTER 2019-04-11 10:04 | Outpatient (CLI) | payer MEDICARE, OTHER, SELFPAY ==
[2019-04-11 13:03] LABS: INR 1.9 (0.9-1.1); Prothrombin Time 18.8 sec (9.3-11.0)
[2019-04-11 13:25] LABS: Anion Gap 8.2 mmol/L (3-11); BUN 30 mg/dL (7-18); CO2 28.8 mmol/L (21.0-32.0); CREATININE 1.66 mg/dL (0.55-1.02); Calcium 8.9 mg/dL (8.5-10.1); Chloride 97 mmol/L (98-107); Glucose 237 mg/dL (74-106); Potassium 4.2 mmol/L (3.5-5.1); Sodium 134 mmol/L (136-145)
== END 2019-04-11 10:24 ==
PROVIDERS: PCP Family Medicine; Visit Provider Family Medicine
DX: I50.9 Heart failure, unspecified (principal); I48.91 Unspecified atrial fibrillation; Z79.01 Long term (current) use of anticoagulants
CPT/HCPCS: 36415; 80048; 85610

== ENCOUNTER 2019-04-25 10:12 | Outpatient (CLI) | payer MEDICARE, OTHER, SELFPAY ==
[2019-04-25 12:45] LABS: BUN 26 mg/dL (7-18); CREATININE 1.38 mg/dL (0.55-1.02); Estimated GFR 36.51 (mL/min/1.73m2)
[2019-04-25 12:54] LABS: INR 1.5 (0.9-1.1); Prothrombin Time 14.9 sec (9.3-11.0)
[2019-04-25 12:59] LABS: Hemoglobin A1C 8.5 % (3.8-5.6)
== END 2019-04-25 10:32 ==
PROVIDERS: PCP Family Medicine; Visit Provider Family Medicine
DX: E11.9 Type 2 diabetes mellitus without complications (principal); I48.91 Unspecified atrial fibrillation; Z79.01 Long term (current) use of anticoagulants
CPT/HCPCS: 36415; 84520; 82565; 83036; 85610

== ENCOUNTER 2019-05-01 09:15 | Outpatient (CLI) | payer MEDICARE, OTHER, SELFPAY ==
[2019-05-01 12:46] LABS: INR 1.9 (0.9-1.1); Prothrombin Time 18.5 sec (9.3-11.0)
== END 2019-05-01 09:35 ==
PROVIDERS: PCP Family Medicine; Visit Provider Family Medicine
DX: I48.91 Unspecified atrial fibrillation (principal); Z79.01 Long term (current) use of anticoagulants
CPT/HCPCS: 36415; 85610

== ENCOUNTER 2019-05-09 12:24 | Outpatient (CLI) | payer MEDICARE, OTHER, SELFPAY ==
[2019-05-09 13:21] LABS: INR 1.8 (0.9-1.1); Prothrombin Time 17.7 sec (9.3-11.0)
== END 2019-05-09 12:44 ==
PROVIDERS: PCP Family Medicine; Visit Provider Family Medicine
DX: I48.91 Unspecified atrial fibrillation (principal); Z79.01 Long term (current) use of anticoagulants
CPT/HCPCS: 36415; 85610

== ENCOUNTER 2019-05-21 14:10 | Outpatient (CLI) | payer MEDICARE, OTHER, SELFPAY ==
[2019-05-21 15:04] LABS: INR 3.1 (0.9-1.1); Prothrombin Time 30.6 sec (9.3-11.0)
== END 2019-05-21 14:30 ==
PROVIDERS: PCP Family Medicine; Visit Provider Family Medicine
DX: I48.91 Unspecified atrial fibrillation (principal); Z79.01 Long term (current) use of anticoagulants
CPT/HCPCS: 36415; 85610

== ENCOUNTER 2019-06-04 08:35 | Emergency (ER) | payer MEDICARE, OTHER, SELFPAY ==
[2019-06-04] VITALS (53 sets, daily range): BP systolic 105–160; BP diastolic 59–110; PULSE 78–130; RESP 15–31; TEMP 37; O2SAT 87–97
--- NOTE | 2019-06-04 08:45 | DI.RAD_ITS ---
EXAM: XR PORTABLE CHEST AP CLINICAL HISTORY: SOB TECHNIQUE: 2D digital imaging was performed. COMPARISON: XR CHEST 2V PA LATERAL from 08/30/2018 FINDINGS: MEDIASTINUM: Normal. HEART: Normal. PULMONARY VASCULATURE: Tortuosity of the thoracic aorta. Prominence of the pulmonary vasculature is noted. LUNGS: Mild interstitial infiltrates are seen. PLEURAL SPACE: No pleural effusion or pneumothorax. BONE:Degenerative changes are present. OTHER FINDINGS:Normal. IMPRESSION: Mild prominence of the pulmonary vasculature and interstitium. Pulmonary edema cannot be excluded. Infection should also be considered. Please correlate clinically. DATA REPOSITORY: RADIATION DOSE DELIVERED:
--- NOTE | 2019-06-04 09:03 | ED.GENADUL_ITS ---
Discharge Plan Discharge Details Chief Complaint: SOB Primary Care Provider: Rad Yeh ED Provider: Stacie Moore Home Meds and New Rx's Prescriptions: No Action furosemide 20 mg tablet 20 mg PO DAILY RF: 0 acetaminophen 500 mg capsule 500 mg PO BID PRN (Reason: pain) RF: 0 amiodarone 200 mg tablet 200 mg PO DAILY RF: 0 atorvastatin 40 mg tablet 40 mg PO HS Qty: 90 RF: 4 lisinopril 40 mg tablet 40 mg PO BID Qty: 180 RF: 4 nitroglycerin 0.4 mg tablet, sublingual 0.4 mg Sublingual Q 5 MIN PRN Qty: 25 RF: 4 pantoprazole 40 mg tablet,delayed release (DR/EC) 40 mg PO DAILY Qty: 90 RF: 4 (DME) pen needle, diabetic [BD Ultra-Fine Juliann Pen Needle] 32 gauge x 5/32 needle See Dose Instructions .ROUTE .MEDSUPPLY Qty: 100 RF: 3 spironolactone 50 mg tablet 50 mg PO DAILY Qty: 90 RF: 3 warfarin 5 mg tablet 5 mg PO DIRECTED Qty: 90 RF: 3 metoprolol succinate 25 mg capsule,sprinkle,ER 24hr 25 mg PO DAILY Qty: 90 RF: 3 amlodipine 5 mg tablet 5 mg PO DAILY Qty: 90 RF: 3 multivitamin [Daily Multi-Vitamin] 1 EACH tablet 1 tab PO DAILY RF: 0 ascorbic acid (vitamin C) 500 MG tablet 2 tab PO DAILY PRN RF: 0 Hold Instructions: Patient reports getting her vitamin C from multivitamin. chromium picolinate 1,000 MCG tablet 1,000 mcg PO daily prn RF: 0 Hold Instructions: Patient reports not taking for a while. omega 600 mg PO DAILY RF: 0 Hold Instructions: Patient not taken in a while. metolazone 2.5 mg tablet 2.5 mg PO Q OTHER DAY Qty: 20 RF: 0 tramadol 50 mg tablet 50 mg PO Q8H Qty: 9 RF: 0 Tresiba FlexTouch U-100 100 unit/mL (3 mL) insulin pen 15 unit SC DAILY RF: 0 Discharge Data Discharge Date/Time-TO BE ENTERED AT DEPARTURE: 06/04/19 13:50 Medical Decision Making Linda Bautista is an 84 y/o woman with history of COPD, CHF, hypertension, atrial fibrillation who presented to the emergency department with shortness of breath, chest tightness this morning currently resolved, found to be in A. fib at 150 by EMS and given 5 mg of metoprolol en route. On exam patient with somewhat decreased breath sounds throughout bilaterally, tachycardic regular rhythm, acutely nontoxic appearing. Concern for CHF, ACS, doubt PE at this time. Exam/history is not consistent with acute aortic pathology, sepsis. EKG shows ST elevation inferiorly and anteriorly, however does not meet STEMI criteria, patient also without any current pain. I discussed patient presentation with Dr. Green of cardiology who was scheduled to see patient at 9:00 this morning, and reviewed patient's chart. He recommended that patient be loaded with 150 mg amiodarone bolus followed by amiodarone drip, given IV Lasix. Plan for admission. Chest x-ray consistent with pulmonary edema. Magnesium 1.7, will replete. Troponin resulted at 0.07, [facility] transfer center contacted at time of troponin result, EKG faxed. Awaiting callback from cardiology team. D-dimer elevated, BNP greater than 2000 which is significant change from prior. Doubt pulmonary embolism at this time, INR 2, shortness of breath likely related to A. fib/CHF. Holding CTA chest at this time. 11:14: Discussed patient presentation, results, EKG, meds administered (amiodarone bolus/drip, magnesium, Lasix, aspirin) with [facility] cardiology team, patient accepted by Dr. Garcia, no further recommendations at this time. On reassessment patient with heart rate approximately 100. Patient reporting that she feels somewhat improved from presentation. She continues to deny any pain. Clinical impression: Atrial fibrillation with rapid ventricular response, CHF Disposition: [facility] Medical Records Medical records reviewed: Yes I reviewed the patient's medical records. Imaging Data Radiologic Study: Attestation: I personally reviewed and interpreted this imaging study as follows: Radiologist's impression: EXAM: XR PORTABLE CHEST AP CLINICAL HISTORY: SOB TECHNIQUE: 2D digital imaging was performed. COMPARISON: XR CHEST 2V PA LATERAL from 08/30/2018 FINDINGS: MEDIASTINUM: Normal. HEART: Normal. PULMONARY VASCULATURE: Tortuosity of the thoracic aorta. Prominence of the pulmonary vasculature is noted. LUNGS: Mild interstitial infiltrates are seen. PLEURAL SPACE: No pleural effusion or pneumothorax. BONE:Degenerative changes are present. OTHER FINDINGS:Normal. IMPRESSION: Mild prominence of the pulmonary vasculature and interstitium. Pulmonary edema cannot be excluded. Infection should also be considered. Please correlate clinically. Lab Data Lab results reviewed: Yes I reviewed the patient's lab results. Labs: Laboratory Tests Range/Units 06/04/19 06/04/19 06/04/19 09:10 09:10 09:10 WBC (4.4-10.8) k/cumm 12.28 H RBC (4.00-5.20) m/cumm 3.56 L Hgb (12.0-15.5) g/dL 10.4 L Hct (36.0-46.0) % 30.5 L MCV (80-95) fL 85.7 MCH (27.0-33.0) pg 29.2 MCHC (32.0-36.0) g/dL 34.1 RDW (11.7-14.6) % 13.1 Plt Count (130-400) x1000/uL 251 MPV (8.0-11.0) fL 11.5 H Immature Gran % % 0.2 Neutrophils % 83.8 Lymphocytes % 5.7 Monocytes % 9.9 Eosinophils % 0.2 Basophils % 0.2 Absolute Neutrophils (1.2-6.7) k/cumm 10.29 H Absolute Lymphocytes (1.2-3.4) k/cumm 0.70 L Absolute Monocytes (0.11-0.7) k/cumm 1.22 H Absolute Eosinophils (0.0-0.7) k/cumm 0.02 Absolute Basophils (0.0-0.2) k/cumm 0.02 PT (9.3-11.0) sec INR (0.9-1.1) D-Dimer (<500) ng/mlFEU 1424 H Sodium (136-145) mmol/L 124 L* Potassium (3.5-5.1) mmol/L 4.0 Chloride (98-107) mmol/L 91 L Carbon Dioxide (21.0-32.0) mmol/L 22.5 Anion Gap (3-11) mmol/L 10.5 BUN (7-18) mg/dL 25 H Creatinine (0.55-1.02) mg/dL 1.15 H Estimated GFR/1.73 m2 (mL/min/1.73m2) 45.06 Glucose (74-106) mg/dL 167 H Calcium (8.5-10.1) mg/dL 7.8 L Magnesium (1.8-2.4) mg/dL 1.7 L Total Bilirubin (0.2-1.0) mg/dL 0.5 AST (15-37) U/L 21 ALT (14-59) U/L 29 Alkaline Phosphatase (46-116) U/L 102 Troponin I (<0.06) ng/Ml 0.07 NT-Pro-B Natriuret Pep (<300) pg/mL 2035 H Total Protein (6.4-8.2) g/dL 6.9 Albumin (3.4-5.0) g/dL 3.1 L Range/Units 06/04/19 06/04/19 09:10 11:39 WBC (4.4-10.8) k/cumm RBC (4.00-5.20) m/cumm Hgb (12.0-15.5) g/dL Hct (36.0-46.0) % MCV (80-95) fL MCH (27.0-33.0) pg MCHC (32.0-36.0) g/dL RDW (11.7-14.6) % Plt Count (130-400) x1000/uL MPV (8.0-11.0) fL Immature Gran % % Neutrophils % Lymphocytes % Monocytes % Eosinophils % Basophils % Absolute Neutrophils (1.2-6.7) k/cumm Absolute Lymphocytes (1.2-3.4) k/cumm Absolute Monocytes (0.11-0.7) k/cumm Absolute Eosinophils (0.0-0.7) k/cumm Absolute Basophils (0.0-0.2) k/cumm PT (9.3-11.0) sec 19.4 H INR (0.9-1.1) 2.0 H D-Dimer (<500) ng/mlFEU Sodium (136-145) mmol/L Potassium (3.5-5.1) mmol/L Chloride (98-107) mmol/L Carbon Dioxide (21.0-32.0) mmol/L Anion Gap (3-11) mmol/L BUN (7-18) mg/dL Creatinine (0.55-1.02) mg/dL Estimated GFR/1.73 m2 (mL/min/1.73m2) Glucose (74-106) mg/dL Calcium (8.5-10.1) mg/dL Magnesium (1.8-2.4) mg/dL Total Bilirubin (0.2-1.0) mg/dL AST (15-37) U/L ALT (14-59) U/L Alkaline Phosphatase (46-116) U/L Troponin I (<0.06) ng/Ml 0.07 NT-Pro-B Natriuret Pep (<300) pg/mL Total Protein (6.4-8.2) g/dL Albumin (3.4-5.0) g/dL ECG Data Attestation: I personally reviewed and interpreted this ECG (s) as follows: Interpretation: EKG shows A. fib at 120, left axis, left anterior fascicular block, ST elevation 1 m millimeter lead III ST elevation [address] elevation 1.5 mm lead V4, no STEMI, nondiagnostic EKG HPI General Mode of arrival: ambulatory . Date/Time Provider Initiated Documentation: 06/04/19 08:58 . Limitations to Documentation: no limitations . Information obtained by: patient, RN notes reviewed and old records reviewed . HPI Narrative: Linda Bautista is an 84 y/o woman with history of atrial fibrillation on Coumadin, coronary artery disease, CHF, hypertension, diabetes presenting to the emergency department with shortness of breath, general malaise. Patient reports that she has felt fatigued and somewhat short of breath over the past few days. She reports that this morning her shortness of breath seemed worse particularly with exertion. She did have some chest tightness earlier today that was mild, did not seem to be exertional. Patient reports that her chest tightness resolved prior to EMS arriving. She denies having any chest pain/chest tightness or any other pain currently. Patient reports that she does not feel short of breath while resting on stretcher. She denies vomiting, diarrhea, cough, fever, numbness, weakness, rash. Patient reports that she has been eating and drinking as usual. Has been taking all of her meds as usual. Patient is unsure when she went into atrial fibrillation. Related Data Home Medications Medication Instructions Recorded Confirmed ascorbic acid (vitamin C) 2 tab PO DAILY PRN 07/15/12 06/04/19 multivitamin [Daily Multi-Vitamin] 1 tab PO DAILY 07/15/12 06/04/19 [place] 600 mg PO DAILY 08/13/14 06/04/19 chromium picolinate 1,000 mcg PO daily prn 08/13/14 04/17/19 furosemide 20 mg tablet 20 mg PO DAILY tab-cap 10/11/18 06/04/19 amiodarone 200 mg tablet 200 mg PO DAILY tab-cap 11/15/18 06/04/19 acetaminophen 500 mg capsule 500 mg PO BID PRN cap 12/13/18 06/04/19 metolazone 2.5 mg tablet 2.5 mg PO Q OTHER DAY #20 tab 03/16/19 04/17/19 atorvastatin 40 mg tablet 40 mg PO HS #90 tab-cap 04/17/19 06/04/19 lisinopril 40 mg tablet 40 mg PO BID #180 tab-cap 04/17/19 06/04/19 metoprolol succinate 25 mg capsule 25 mg PO DAILY #90 cap 04/17/19 06/04/19 sprinkle, ext. release 24 hr nitroglycerin 0.4 mg sublingual 0.4 mg SUBLINGUAL Q 5 MIN PRN #25 04/17/19 06/04/19 tablet tab-cap pantoprazole 40 mg tablet,delayed 40 mg PO DAILY #90 tab-cap 04/17/19 06/04/19 release pen needle, diabetic 32 gauge x #100 each 04/17/19 04/17/19 spironolactone 50 mg tablet 50 mg PO DAILY #90 tab-cap 04/17/19 06/04/19 warfarin 5 mg tablet 5 mg PO DIRECTED #90 tab-cap 04/17/19 06/04/19 amlodipine 5 mg tablet 5 mg PO DAILY #90 tab 04/27/19 06/04/19 tramadol 50 mg tablet 50 mg PO Q8H #9 tab 06/01/19 06/04/19 Tresiba FlexTouch U-100 15 unit SC DAILY 06/04/19 06/04/19 Previous Rx's Medication Instructions Recorded metolazone 2.5 mg tablet 2.5 mg PO Q OTHER DAY #20 tab 03/16/19 atorvastatin 40 mg tablet 40 mg PO HS #90 tab-cap 04/17/19 lisinopril 40 mg tablet 40 mg PO BID #180 tab-cap 04/17/19 metoprolol succinate 25 mg capsule 25 mg PO DAILY #90 cap 04/17/19 sprinkle, ext. release 24 hr nitroglycerin 0.4 mg sublingual 0.4 mg SUBLINGUAL Q 5 MIN PRN #25 04/17/19 tablet tab-cap pantoprazole 40 mg tablet,delayed 40 mg PO DAILY #90 tab-cap 04/17/19 release pen needle, diabetic 32 gauge x #100 each 04/17/19 spironolactone 50 mg tablet 50 mg PO DAILY #90 tab-cap 04/17/19 warfarin 5 mg tablet 5 mg PO DIRECTED #90 tab-cap 04/17/19 amlodipine 5 mg tablet 5 mg PO DAILY #90 tab 04/27/19 tramadol 50 mg tablet 50 mg PO Q8H #9 tab 06/01/19 Allergies Allergy/AdvReac Type Severity Reaction Status Date / Time Tetanus Vaccines and Toxoid Allergy Intermediate Verified 06/04/19 08:59 diltiazem AdvReac Severe tired, Verified 06/04/19 08:59 hand pain doxycycline AdvReac Severe GI UPSET Verified 06/04/19 08:59 verapamil AdvReac Severe dizziness Verified 06/04/19 08:59 doxazosin mesylate AdvReac Intermediate muscle Verified 06/04/19 08:59 [From Sydnee] aches atenolol AdvReac Mild leg pain Verified 06/04/19 08:59 General Stated Complaint: SOB GELA: 2 Review of Systems Narrative: Constitutional: denies fevers Eyes: denies eye pain ENT: denies ear pain, dental pain, sore throat Cardiovascular: denies chest pain, reports chest tightness now resolved, edema at baseline now somewhat worse than usual edema Respiratory: denies cough, reports shortness of breath GI: denies abdominal pain, vomiting, diarrhea : denies flank pain MSK: denies back pain, neck pain, arthralgias, myalgias Skin: denies rash Neuro: denies headaches, numbness, weakness [facility] Medical History Arthritis (Acute) ASCVD (arteriosclerotic cardiovascular disease) (Acute 04/22/15) MS with out of hosp cardiac arrest LAD stent, LVEF 35% Atrial fibrillation (Acute 05/27/11) paroxysmal Oct 2009 Carpal tunnel syndrome on both sides (Acute) CHF (congestive heart failure) (Chronic) Essential hypertension (Acute 01/04/13) echo 2007 [facility] uncontrolled BP (neg w/u for pheo) Foot drop, left (Acute) GERD (gastroesophageal reflux disease) (Chronic) Hyperlipidemia (Acute) Hypertensive retinopathy (Acute) Low back pain (Acute) Lumbar stenosis (Acute) Mild obstructive sleep apnea (Acute 11/17/15) [facility] Type II diabetes mellitus with complication, uncontrolled (Acute 05/14/14) Surgical History History of appendectomy (Chronic) Social History Smoking/Tobacco Use Status: Never Alcohol Intake: never Drug use: Never Substance use type: does not use Household members: none current occupation: Retired Pets and animals: Yes Pets and animals: cat(s) and dog(s) Frequency: does not exercise Faviola/Spiritism: Anglican Agree to transfusion: No Do you feel safe at home: Yes Do you feel safe in your relationship?: Yes Exam Narrative Exam Narrative: Constitutional: Somewhat chronically ill-appearing but acutely [id number], pleasant, conversing normally HENT: head atraumatic/normocephalic/normal inspection, mucous membranes moist Eyes: conjunctiva normal, sclera normal, pupils 3mm b/l Neck: no stridor, normal ROM, trachea midline Chest: normal inspection Resp: normal work of breathing, somewhat decreased lung sounds throughout bilaterally, no rales, no rhonchi Cardio: tachycardic rate, irregular rhythm, no murmur appreciated GI: abdomen soft, non-tender, non-distended Back: normal inspection, no rash Skin: warm, dry, normal color, no rash Neuro: alert, not altered, grossly non-focal, normal tone Ext: 2+ pitting edema bilaterally, no posterior calf tenderness to palpation Psych: normal mood, normal affect, normal behavior Course Vital Signs Vital signs: Vital Signs Temperature 37 C 06/04/19 08:48 Pulse 116 H 06/04/19 08:48 Respiratory Rate 22 03/09/20 08:48 Blood Pressure 151/88 H 06/04/19 08:48 Pulse Oximetry 94 L 06/04/19 08:48 Temperature 37 C 06/04/19 08:48 Temperature Source Skin 06/04/19 08:48 Pulse 116 H 06/04/19 08:48 Respiratory Rate 22 06/04/19 08:48 Blood Pressure 151/88 H 06/04/19 08:48 Blood Pressure Position Sitting 06/04/19 08:48 Pulse Oximetry 94 L 06/04/19 08:48 Oxygen Delivery Method Room Air 06/04/19 08:48 Oxygen Flow Rate 0 06/04/19 08:48 Critical Care Time Critical Care Time Critical Care Time: Yes Total Critical Care Time: 35 Attestation: I have spent greater than 35 minutes of critical care time with this critically ill patient, including but not limited to frequent reassessments and discussions with consultants.
[2019-06-04 09:25] LABS: Abs Immature Grans 0.02 k/cumm (0.0-0.09); Absolute Basophil Count 0.02 k/cumm (0.0-0.2); Absolute Eosinophil Count 0.02 k/cumm (0.0-0.7); Basophils % 0.2; Eosinophils % 0.2; HCT 30.5 % (36.0-46.0); HGB 10.4 g/dL (12.0-15.5); Immature Grans % 0.2 %; Lymphocytes % 5.7; Mean Corp. HGB Concentration 34.1 g/dL (32.0-36.0); Mean Corpuscular Hemoglobin 29.2 pg (27.0-33.0); Mean Corpuscular Volume 85.7 fL (80-95); Mean Platelet Volume 11.5 fL (8.0-11.0); Monocytes % 9.9; Neutrophils % 83.8; Platelet Count 251 x1000/uL (130-400); RBC 3.56 m/cumm (4.00-5.20); RBC Distribution Width 13.1 % (11.7-14.6); White Blood Cell Count 12.28 k/cumm (4.4-10.8)
[2019-06-04 09:35] LABS: Absolute Monocyte Count 1.22 k/cumm (0.11-0.7); Absolute Neutrophil Count 10.29 k/cumm (1.2-6.7)
[2019-06-04 09:37] LABS: Prothrombin Time 19.4 sec (9.3-11.0)
[2019-06-04 09:50] LABS: ALT 29 U/L (14-59); AST 21 U/L (15-37); Albumin 3.1 g/dL (3.4-5.0); Alkaline Phosphatase 102 U/L (46-116); Anion Gap 10.5 mmol/L (3-11); BUN 25 mg/dL (7-18); Bilirubin, Total 0.5 mg/dL (0.2-1.0); CO2 22.5 mmol/L (21.0-32.0); CREATININE 1.15 mg/dL (0.55-1.02); Calcium 7.8 mg/dL (8.5-10.1); Chloride 91 mmol/L (98-107); Estimated GFR 45.06 (mL/min/1.73m2); Glucose 167 mg/dL (74-106); Magnesium 1.7 mg/dL (1.8-2.4); NT-proBNP 2035 pg/mL (<300); Total Protein 6.9 g/dL (6.4-8.2)
[2019-06-04 09:58] LABS: Sodium 124 mmol/L (136-145)
[2019-06-04 09:59] LABS: Troponin I 0.07 ng/Ml (<0.06)
[2019-06-04 10:05] LABS: D-Dimer 1424 ng/mlFEU (<500)
[2019-06-04] MEDS: Aspirin 81 MG CHEW 324 MG CH (11:27)
[2019-06-04] MEDS: Furosemide 40 MG/4 ML VIAL IVP (11:41)
[2019-06-04] MEDS: MAGNESIUM SULFATE 1 GM/100 ML BAG IVPB (11:44)
[2019-06-04 12:25] LABS: Troponin I 0.07 ng/Ml (<0.06)
== END 2019-06-04 13:50 ==
PROVIDERS: Emergency Provider Student in an Organized Health Care Education/Training Program; PCP Family Medicine
DX: R06.02 Shortness of breath (principal); I11.0 Hypertensive heart disease with heart failure; I50.9 Heart failure, unspecified; E83.42 Hypomagnesemia; R79.1 Abnormal coagulation profile; Z79.01 Long term (current) use of anticoagulants; E11.9 Type 2 diabetes mellitus without complications; Z79.4 Long term (current) use of insulin; I25.10 Atherosclerotic heart disease of native coronary artery without angina pectoris; I48.20 Chronic atrial fibrillation, unspecified
CPT/HCPCS: 36415; 80053; 93005; 96365; 96366; 96375; 96376; 99291; 71045; 83735; 83880; 84484; 85025; 85379; 85610; 93010; J1940; J3475; J3490

== ENCOUNTER 2019-06-20 12:52 | Outpatient (REF) | payer MEDICARE, OTHER, SELFPAY ==
[2019-06-20 13:30] LABS: Anion Gap 10.6 mmol/L (3-11); BUN 65 mg/dL (7-18); CO2 23.4 mmol/L (21.0-32.0); CREATININE 1.98 mg/dL (0.55-1.02); Calcium 8.6 mg/dL (8.5-10.1); Chloride 92 mmol/L (98-107); Estimated GFR 24.07 (mL/min/1.73m2); Glucose 255 mg/dL (74-106); Potassium 4.8 mmol/L (3.5-5.1); Sodium 126 mmol/L (136-145)
[2019-06-20 13:48] LABS: Prothrombin Time 41.8 sec (9.3-11.0)
[2019-06-20 14:18] LABS: INR 4.3 (0.9-1.1)
== END 2019-06-20 13:12 ==
LOC: LBN 12:52
PROVIDERS: PCP Family Medicine; Visit Provider Family Medicine
DX: I48.0 Paroxysmal atrial fibrillation (principal); E87.1 Hypo-osmolality and hyponatremia; E78.5 Hyperlipidemia, unspecified; I50.23 Acute on chronic systolic (congestive) heart failure; I21.4 Non-ST elevation (NSTEMI) myocardial infarction
CPT/HCPCS: 80048; 85610

== ENCOUNTER → 2019-06-28 15:00 | Outpatient (BNVA) | payer MEDICARE, OTHER, SELFPAY | PROVIDERS: PCP Family Medicine; Referring Provider Family Medicine; Visit Provider Internal Medicine Cardiovascular Disease | DX: I25.10 Atherosclerotic heart disease of native coronary artery without angina pectoris; I48.91 Unspecified atrial fibrillation; I50.22 Chronic systolic (congestive) heart failure; E11.9 Type 2 diabetes mellitus without complications | CPT/HCPCS: 99441; 99213 ==

== ENCOUNTER 2019-07-04 13:31 | Outpatient (REF) | payer MEDICARE, OTHER, SELFPAY ==
[2019-07-04 14:05] LABS: Anion Gap 9.9 mmol/L (3-11); BUN 37 mg/dL (7-18); CO2 25.1 mmol/L (21.0-32.0); CREATININE 1.71 mg/dL (0.55-1.02); Chloride 97 mmol/L (98-107); Estimated GFR 28.51 (mL/min/1.73m2); Glucose 222 mg/dL (74-106); Potassium 4.6 mmol/L (3.5-5.1); Sodium 132 mmol/L (136-145)
== END 2019-07-04 13:51 ==
LOC: LBN 13:31
PROVIDERS: PCP Family Medicine; Visit Provider Family Medicine
DX: E87.1 Hypo-osmolality and hyponatremia (principal); E78.5 Hyperlipidemia, unspecified; I11.0 Hypertensive heart disease with heart failure; K21.9 Gastro-esophageal reflux disease without esophagitis
CPT/HCPCS: 80048

== ENCOUNTER 2019-08-01 12:04 | Emergency (ER) | payer MEDICARE, OTHER, SELFPAY ==
--- NOTE | 2019-08-01 12:02 | ED.GENADUL_ITS ---
Discharge Plan Disposition Patient Disposition: HOME Condition: Fair Discharge Details Chief Complaint: GenMedical Clinical Impression: Atrial fibrillation, Type II diabetes mellitus with complication, uncontrolled, CHF (congestive heart failure), Hyponatremia, Closed fracture of right hip Primary Care Provider: Rad Yeh ED Provider: Norma Cifuentes Home Meds and New Rx's Prescriptions: Continued acetaminophen 500 mg capsule 500 mg PO BID PRN (Reason: pain) RF: 0 atorvastatin 40 mg tablet 40 mg PO HS Qty: 90 RF: 4 nitroglycerin 0.4 mg tablet, sublingual 0.4 mg Sublingual Q 5 MIN PRN Qty: 25 RF: 4 pantoprazole 40 mg tablet,delayed release (DR/EC) 40 mg PO DAILY Qty: 90 RF: 4 (DME) pen needle, diabetic [BD Ultra-Fine Juliann Pen Needle] 32 gauge x 5/32 needle See Dose Instructions .ROUTE .MEDSUPPLY Qty: 100 RF: 3 spironolactone 50 mg tablet 50 mg PO DAILY Qty: 90 RF: 3 warfarin 5 mg tablet 5 mg PO DIRECTED Qty: 90 RF: 3 amlodipine 5 mg tablet 5 mg PO DAILY Qty: 90 RF: 3 multivitamin [Daily Multi-Vitamin] 1 EACH tablet 1 tab PO DAILY RF: 0 ascorbic acid (vitamin C) 500 MG tablet 2 tab PO DAILY PRN RF: 0 Hold Instructions: Patient reports getting her vitamin C from multivitamin. chromium picolinate 1,000 MCG tablet 1,000 mcg PO daily prn RF: 0 Hold Instructions: Patient reports not taking for a while. omega 600 mg PO DAILY RF: 0 Hold Instructions: Patient not taken in a while. metoprolol succinate 50 mg tablet extended release 24 hr 150 mg PO DAILY Qty: 90 RF: 11 furosemide 20 mg tablet 40 mg PO DAILY Qty: 180 RF: 3 urea 15 gram powder in packet 2 packet PO BID RF: 0 aspirin [Adult Low Dose Aspirin] 81 mg tablet,delayed release (DR/EC) 81 mg PO DAILY RF: 0 Tresiba FlexTouch U-100 100 unit/mL (3 mL) insulin pen 15 unit SC QHS Qty: 15 RF: 3 buprenorphine [Butrans] 5 mcg/hour patch weekly 1 patch TD QWEEK Qty: 4 RF: 0 Discharge Instructions Instructions: Heart Failure (ED), Hip Fracture (ED) Additional Instructions: Your right hip pain is from an old hip fracture. This will need to be replaced. However, we first need to get your other medical issues that are under control. Dr. Stovall is happy to see you to discuss surgical options once you are better managed. I have spoken with Dr. Yeh regarding her lower extremity swelling. This is likely associated with CHF. Please keep Gilberto wraps on to help with compression. I have requested that home health come more frequently to reapply your Gilberto wraps. Please try to elevate as much as possible as discussed. Please take urea as we discussed as recommended by [facility]. Please increase your Lasix dose to [address] Yeh will call you on Tuesday to discuss your swelling and any change in medications that may need to occur. If you develop chest pain, shortness of breath, fever/chills or other new/worsening symptoms please seek care urgently once again. Referrals: Ayaan Stovall MD [ [facility] STAFF PHYSICIAN] - Rad Yeh [Primary Care Provider] - Discharge Data Discharge Date/Time-TO BE ENTERED AT DEPARTURE: 08/01/19 15:34 Medical Decision Making Patient is a pleasant 84-year-old female, brought in via EMS, chief complaint of bilateral extremity edema and right-sided hip pain. She reports of bilateral lower extremity edema has previously been increasing over the past month. Patient does have a past medical history significant for end STEMI, hyponatremia, CHF, hypertension, type 2 diabetes, NNAMDI, hyperlipidemia, atrial fibrillation, ASCVD, and is currently on warfarin. Patient was evaluated by her home health nurse who felt that she needed to come in today for evaluation of her lower extremity edema. She states no sudden change in this. Patient is chronically on 40 mg Lasix daily. She reports that secondary to the pandemic, patient has now been receiving Meals on Wheels which is probably all the food I should need. She then goes on to describe a very salty dietary intake which may be contributing to this. She was here recently at which time her BNP was elevated and there was evidence of respiratory issues associated with CHF exacerbation and elevated troponin prompting transfer to [facility]. Will obtain these notes. Patient denies feeling short of breath. She reports she is chronically short of breath associated with exertion but no change in this acutely. Patient reports that yesterday when she was resting to have something completed that she fell landing on her right hip. Did not strike her head, no loss of conscious. She has an area of ecchymosis on the ulnar side of the right hand. On exam, patient appears chronically unwell. She does not appear to be uncomfortable or in any acute distress. Her lungs are clear. She is irregularly irregular in a tachycardic rhythm which is baseline for the patient. She is 2+ distal pulses. No calf tenderness in bilateral lower extremities. She has 2+ pitting edema bilaterally. Swelling does not extend above the knees. Exam of the right hip shows no ecchymosis or evidence of trauma. She has full flexion but does have discomfort with this position the lateral aspect of the right hip. Limited internal and external rotation in a flexed position. I am able to axial load and rotate without any discomfort. No discoloration of her lower extremities. Brisk capillary refill. EKG was obtained and reviewed by Dr. Huang showing irregularly irregular rhythm with a rate of 119. Patient does have some T wave inversions do appear new compared to previous but she advised unlikely to be associated with ischemic changes. Out of abundance of caution, troponin will be obtained. We will repeat EKG prior to departure. At this time, I am primarily concerned for CHF. Patient does endorse increased salt intake and I am concerned that this may be causing exacerbation in her lower extremity edema that she is noticed over the past month. She does not have any tenderness or evidence for DVT. The lower extremity edema has been progressively worsening equal bilaterally. Patient is anticoagulated on Coumadin states she is been taking her medications as prescribed. Plan to recheck INR to ensure at therapeutic levels. Patient does have history of electrolyte abnormalities and I am considered this as potential etiology. Given the patient's fall, I am concerned for fracture. Her pain is fairly diffuse on the femur and we will obtain femur films. Patient is on 40 mg p.o. Lasix. Will give 40 IV and reassess. As patient is not exhibiting any chest pain or shortness of breath, I have low suspicion for PE, ACS or intrathoracic etiology at this time. However, as this is primarily looking like a CHF exacerbation I do feel the chest x-ray is appropriate for further evaluation. I reviewed the patient's discharge summary dated 06/11/19 from [facility]. At the time of discharge, the patient was hyponatremic with a sodium of 122. She was placed on twice daily urea. Reviewed the x-ray. I am concerned for femoral head necrosis. Consulted with Dr. Stovall who reviewed the x-ray. He is also concerned with possible lytic lesions when compared to previous xr. He has requested CT of the hip. I discussed his concerns with the patient. She denies any known trauma. Has had progressively increasing right hip pain which does make sense based on imaging. Will obtain CT and CRP as advised by Dr. Stovall. Patient continues to be tachycardic, particular with activity. Will give second dosing of metoprolol to augment with her initial dose and use it this morning. I spoke with the patient further regarding her medications particularly with the findings of her labs. She is now reporting that she is no longer taking urea as was advised that she does not find this tolerable. States she has not taken medicine several weeks. States that 1 packet is tolerable for her but more than that is quite difficult to get down. She has been taking her Coumadin as prescribed. Labs were reviewed. INR is 2.0. Sodium is low at 128 which is baseline for the patient improved from her recent discharge. Creatinine is elevated at 1.65 which is baseline for the patient. BUN is elevated at 34. Glucose 227. This is baseline, patient is chronically poorly controlled. BNP is elevated at 2303. She was elevated like this when diagnosed with her an STEMI and discharged to [facility]. However, this was quite unusual for the patient is likely contributing to her lower extremity edema. She is not expressing the shortness of breath or chest pain that she had been having at that time. CT reviewed by radiologist. She advised no lytic lesions. Concerning for old fragmented fracture fo the femoral head with amorphous densities in the joint space. Consulted with the patient's primary care Dr. Yeh. He was well aware the patient reports that he has been frequently adjusting her Lasix attempting to find a good balance between her hyponatremia as well as her fluid overload. He has been having the patient rotate to 20 and 40 mg of Lasix every other day. Patient states that she has been doing this. He advised having the patient do 40 mg daily. He agreed with a prescription for lower extremities. I do not feel that the patient is able to apply compression hose. I am concerned that she will not be able to apply the Gilberto wraps by herself as well. She does have pain in the right hip when she tries to elevate the lower extremities although this has been encouraged by myself as well as his primary care provider. Dr. Yeh advised that he will follow-up with the patient on Tuesday to discuss where she is at, make adjustments of medications and order repeat laboratory evaluation. Patient does agree at this time to begin the urea once again as much she can tolerate per [facility] recommendations. She will begin the 40 mg daily Lasix. Gilberto wrap was applied by nursing staff. I did recheck to care management as I am concerned she will not be able to apply these at home and feel the increase in her home health nursing would be appropriate to be will help her lower extremity edema and apply compression Gilberto wraps. Plan is for patient to be improved medically prior to referral to orthopedics for parker-versus total arthroplasty. Patient is well aware of the plan. She is given strict return precautions. All of her questions or concerns were addressed and she is in agreement this plan. Just prior to discharge, patient's EKG was repeated reviewed by Dr. Huang, it remains unchanged from the initial. Her heart rate has been widely variable here. Typically, when she is at rest her heart rate is 03/28/2005. However, we will begin talking about the patient's hip when she is moving around it does jump up. She was given a 25 mg metoprolol since being here. Again, the patient reassures me that she is not having any symptoms such as chest pain or shortness of breath. She is completely asymptomatic and has close follow-up, I do not feel that further evaluation this T wave inversions is necessary particularly she did have a negative troponin. Patient does feel ready for discharge at this time. HPI General Mode of arrival: EMS . Date/Time Provider Initiated Documentation: 08/01/19 12:07 . Limitations to Documentation: no limitations . Information obtained by: patient and RN notes reviewed . History of Present Illness 84 year old F presents to the emergency department with the chief complaint of RLE pain and BLE edema, described as moderate, Quality is described as aching, and is localized to the right and lower extremity. Patient reports no radiation. Patient started experiencing this day(s) (fall 1 day ago leading to RLE discomfort, BLE edema x 1month) and it has been constant. Immobilization improves symptom(s), Movement worsens symptoms . Patient notes no other symptoms.; denies chest pain, cough, fever/chills, loss of appetite, nausea/vomiting, shortness of breath, syncope and weakness. Patient did receive the following treatments prior to arrival, none Related Data Home Medications Medication Instructions Recorded Confirmed ascorbic acid (vitamin C) 2 tab PO DAILY PRN 07/15/12 08/01/19 multivitamin [Daily Multi-Vitamin] 1 tab PO DAILY 07/15/12 08/01/19 [place] 600 mg PO DAILY 08/13/14 08/01/19 chromium picolinate 1,000 mcg PO daily prn 08/13/14 08/01/19 acetaminophen 500 mg capsule 500 mg PO BID PRN cap 12/13/18 08/01/19 atorvastatin 40 mg tablet 40 mg PO HS #90 tab-cap 04/17/19 08/01/19 nitroglycerin 0.4 mg sublingual 0.4 mg SUBLINGUAL Q 5 MIN PRN #25 04/17/19 08/01/19 tablet tab-cap pantoprazole 40 mg tablet,delayed 40 mg PO DAILY #90 tab-cap 04/17/19 08/01/19 release pen needle, diabetic 32 gauge x #100 each 04/17/19 08/01/19 spironolactone 50 mg tablet 50 mg PO DAILY #90 tab-cap 04/17/19 08/01/19 warfarin 5 mg tablet 5 mg PO DIRECTED #90 tab-cap 04/17/19 08/01/19 amlodipine 5 mg tablet 5 mg PO DAILY #90 tab 04/27/19 08/01/19 furosemide 20 mg tablet 40 mg PO DAILY #180 tab-cap 06/13/19 08/01/19 metoprolol succinate 50 mg 150 mg PO DAILY #90 tab 06/13/19 08/01/19 tablet,extended release 24 hr aspirin 81 mg tablet,delayed 81 mg PO DAILY 06/20/19 08/01/19 release urea 15 gram oral powder packet 2 packet PO BID 06/20/19 08/01/19 insulin degludec 100 unit/mL (3 15 unit SC QHS #15 ml 07/11/19 08/01/19 mL) subcutaneous pen buprenorphine 5 mcg/hour weekly 1 patch TD QWEEK #4 each 07/20/19 08/01/19 transdermal patch Previous Rx's Medication Instructions Recorded atorvastatin 40 mg tablet 40 mg PO HS #90 tab-cap 04/17/19 nitroglycerin 0.4 mg sublingual 0.4 mg SUBLINGUAL Q 5 MIN PRN #25 04/17/19 tablet tab-cap pantoprazole 40 mg tablet,delayed 40 mg PO DAILY #90 tab-cap 04/17/19 release pen needle, diabetic 32 gauge x #100 each 04/17/19 spironolactone 50 mg tablet 50 mg PO DAILY #90 tab-cap 04/17/19 warfarin 5 mg tablet 5 mg PO DIRECTED #90 tab-cap 04/17/19 amlodipine 5 mg tablet 5 mg PO DAILY #90 tab 04/27/19 furosemide 20 mg tablet 40 mg PO DAILY #180 tab-cap 06/13/19 metoprolol succinate 50 mg 150 mg PO DAILY #90 tab 06/13/19 tablet,extended release 24 hr insulin degludec 100 unit/mL (3 15 unit SC QHS #15 ml 07/11/19 mL) subcutaneous pen buprenorphine 5 mcg/hour weekly 1 patch TD QWEEK #4 each 07/20/19 transdermal patch Allergies Allergy/AdvReac Type Severity Reaction Status Date / Time Tetanus Vaccines and Toxoid Allergy Intermediate Verified 08/01/19 14:19 diltiazem AdvReac Severe tired, Verified 08/01/19 14:19 hand pain doxycycline AdvReac Severe GI UPSET Verified 08/01/19 14:19 verapamil AdvReac Severe dizziness Verified 08/01/19 14:19 doxazosin mesylate AdvReac Intermediate muscle Verified 08/01/19 14:19 [From [place]] aches atenolol AdvReac Mild leg pain Verified 08/01/19 14:19 General GELA: 2 Review of Systems Constitutional Constitutional: Reports as per HPI, Denies chills, Denies fever(s), Denies headache(s), Denies lethargy and Denies poor appetite Eyes Eyes: Denies change in vision ENT Ears, Nose, Mouth, and Throat: Denies dizziness and Denies headache(s) Cardiovascular Cardiovascular: Reports as per HPI, Denies syncope, Reports leg edema, Denies lightheadedness, Denies radiating jaw, neck or arm pain, Denies dyspnea and Reports dyspnea on exertion (chronic, unchan ged) Respiratory Respiratory: Reports as per HPI, Denies chest congestion, Denies cough, Denies pain on inspiration, Denies pain with cough, Denies dyspnea, Reports dyspnea on exertion (chronic, unchan ged) and Denies wheezing Gastrointestinal Gastrointestinal: Reports as per HPI, Denies abdominal pain, Denies diarrhea, Denies nausea and Denies vomiting Musculoskeletal Musculoskeletal: Reports as per HPI and Denies back pain Integumentary/Breasts Skin/Breast: Reports as per HPI and Denies rash Neurologic Neurologic: Reports as per HPI, Denies dizziness, Denies syncope and Denies headache(s) Allergic/Immunologic Allergic/Immunologic: Denies wheezing [facility] Medical History Arthritis (Acute) ASCVD (arteriosclerotic cardiovascular disease) (Acute 04/22/15) [place] with out of hosp cardiac arrest LAD stent, LVEF 35% Atrial fibrillation (Acute 05/27/11) paroxysmal Oct 2009 Carpal tunnel syndrome on both sides (Acute) CHF (congestive heart failure) (Chronic) Chronic low back pain (Acute) Essential hypertension (Acute 01/04/13) echo 2007 [facility] uncontrolled BP (neg w/u for pheo) Foot drop, left (Acute) GERD (gastroesophageal reflux disease) (Chronic) Hyperlipidemia (Acute) Hypertensive retinopathy (Acute) Impaired left ventricular function (Acute ~05/2019) [facility]; 35% Low back pain (Acute) Lumbar stenosis (Acute) Mild obstructive sleep apnea (Acute 11/17/15) [facility] NSTEMI (non-ST elevated myocardial infarction) (Acute ~05/2019) [facility] Type II diabetes mellitus with complication, uncontrolled (Acute 05/14/14) Surgical History History of appendectomy (Chronic) Social History Smoking/Tobacco Use Status: Never Alcohol Intake: never Drug use: Never Substance use type: does not use Household members: none current occupation: Retired Pets and animals: Yes Pets and animals: cat(s) and dog(s) Frequency: does not exercise Faviola/Christian: [employer]ology Agree to transfusion: No Do you feel safe at home: Yes Do you feel safe in your relationship?: Yes Exam Const General: cooperative, healthy appearing, comfortable, no acute distress and well developed Nutritional Appearance: well nourished Orientation: alert, awake and oriented x3 HENMT Head: normal to inspection Ears: hearing grossly normal bilaterally Mouth: moist mucous membranes Chest Chest: normal inspection of the chest, normal palpation of entire chest wall and no crepitus Resp Effort & Inspection: normal respiratory effort, able to speak in complete sentences and no respiratory distress Auscultation: clear to auscultation bilaterally, no rales, no rhonchi and no wheezes Cardio Rate: tachycardic Rhythm: abnormal rhythm irregularly irregular Heart Sounds: S1 normal and S2 normal GI Inspection: normal to inspection, no edema and non-distended Palpation: soft, no hepatosplenomegaly, not firm, no guarding, not rigid and nontender Auscultation: normal bowel sounds Back/Spine/Pelvis Back: no CVA tenderness Thoracic/Lumbar Spine: thoracic and lumbar spine normal to inspection Pelvis: no pain with anterior-posterior compression and no pain with lateral compression Skin General skin exam: ecchymosis (ulnar side right hand from fall yesterd, anterior left knee (appears older)) Rashes: no rashes Neuro General: patient alert, patient awake and patient oriented x3 Cognition: normal cognition Speech: speech normal Extrem General: normal to inspection, capillary refill normal, no pedal edema, no calf tenderness and normal gait Psych Appearance: grossly normal and well kempt Mental Status: mental status grossly normal Speech and Movement: speech and movement normal
[2019-08-01 12:06] VITALS: BP 106/89; PULSE 114; RESP 19; TEMP 36.8; O2SAT 97
--- NOTE | 2019-08-01 12:15 | DI.RAD_ITS ---
EXAM: XR CHEST 2V PA LATERAL CLINICAL HISTORY: CHF TECHNIQUE: 2D digital imaging was performed. COMPARISON: XR PORTABLE CHEST AP from 06/04/2019 FINDINGS: MEDIASTINUM: Ectatic aorta with calcification.. HEART: Enlarged, unchanged. Coronary artery stent.. PULMONARY VASCULATURE: Normal. LUNGS: Clear. PLEURAL SPACE: No pleural effusion or pneumothorax. BONE:Degenerative changes of both shoulders as well as thoracic spine.. IMPRESSION: No acute pulmonary findings. DATA REPOSITORY: RADIATION DOSE DELIVERED:
--- NOTE | 2019-08-01 12:15 | DI.RAD_ITS ---
EXAM: XR FEMUR RT INDICATION: fall yesterday. TECHNIQUE: 2D digital imaging was performed. FINDINGS: There is marked flattening of the superior aspect of the femoral head. This could represent a fract ure versus chronic deformity. This was not present previously. There is also question of a fracture fragment displaced inferior to the acetabulum. There are lucencies through the greater trochanter w hich are not definitely changed and could represent degenerative changes. There is prominent spurrin g at the greater trochanter. Vascular calcifications are seen. Degenerative changes are noted at th e knee. IMPRESSION: Apparent fracture of the superior femoral head with fracture fragment displaced inferiorly. DATA REPOSITORY: RADIATION DOSE DELIVERED:
[2019-08-01 12:40] LABS: Abs Immature Grans 0.02 k/cumm (0.0-0.09); Absolute Basophil Count 0.04 k/cumm (0.0-0.2); Absolute Eosinophil Count 0.08 k/cumm (0.0-0.7); Absolute Lymphocyte Count 1.69 k/cumm (1.2-3.4); Absolute Monocyte Count 0.81 k/cumm (0.11-0.7); Basophils % 0.4; Eosinophils % 0.9; HCT 36.2 % (36.0-46.0); HGB 12.1 g/dL (12.0-15.5); Immature Grans % 0.2 %; Lymphocytes % 18.5; Mean Corp. HGB Concentration 33.4 g/dL (32.0-36.0); Mean Corpuscular Hemoglobin 29.5 pg (27.0-33.0); Mean Corpuscular Volume 88.3 fL (80-95); Monocytes % 8.9; Neutrophils % 71.1; Platelet Count 256 x1000/uL (130-400); RBC Distribution Width 15.8 % (11.7-14.6); White Blood Cell Count 9.14 k/cumm (4.4-10.8)
[2019-08-01 12:52] LABS: PTT Activated 25.4 sec (21.0-31.4); Prothrombin Time 20.2 sec (9.3-11.0)
[2019-08-01 12:58] LABS: ALT 23 U/L (14-59); AST 25 U/L (15-37); Albumin 3.4 g/dL (3.4-5.0); Alkaline Phosphatase 85 U/L (46-116); Anion Gap 8.9 mmol/L (3-11); BUN 34 mg/dL (7-18); Bilirubin, Total 0.4 mg/dL (0.2-1.0); CO2 27.1 mmol/L (21.0-32.0); CREATININE 1.65 mg/dL (0.55-1.02); Calcium 9.3 mg/dL (8.5-10.1); Chloride 92 mmol/L (98-107); Estimated GFR 29.71 (mL/min/1.73m2); Glucose 227 mg/dL (74-106); Magnesium 1.9 mg/dL (1.8-2.4); NT-proBNP 2303 pg/mL (<300); Potassium 4.8 mmol/L (3.5-5.1); Sodium 128 mmol/L (136-145); Total Protein 7.7 g/dL (6.4-8.2); Troponin I < 0.05 ng/Ml (<0.06)
[2019-08-01] MEDS: Furosemide 40 MG/4 ML VIAL IVP (13:06)
[2019-08-01] MEDS: Acetaminophen 500 MG TAB 1000 MG PO (13:22)
[2019-08-01 13:55] LABS: C-Reactive Protein 0.31 mg/dL (0.0-0.3)
--- NOTE | 2019-08-01 14:12 | DI.CT_ITS ---
EXAM: CT LOWER EXTREMITY RT WO CLINICAL HISTORY: concern for lytic lesions. TECHNIQUE: Imaging Protocol: Axial computed tomography images with coronal and sagittal reformatted images were created and reviewed. CONTRAST MATERIAL: Noncontrast XR FEMUR RT from 08/01/2019 FINDINGS: There is a fracture of the superior portion of the right femoral head which does not appear acute. T here is lateral subluxation of the femoral head with respect to the acetabulum. There are bony densi ties seen in the inferior joint space likely representing fracture fragments. There are degenerative changes of the superior hip joint space. A joint effusion is seen. There is spurring at the greate r trochanter. No lytic or blastic lesions are identified. No acetabular fracture is seen. IMPRESSION: Chronic appearing fracture of the superior humeral head with large surrounding joint effusion with mu ltiple calcifications. No lytic lesions are visible. RADIATION DOSE DELIVERED: Total DLP DATA REPOSITORY: All CT scans at this facility are submitted to the National Radiology Data Registry (NRDR) Dose Index Registry (DIR) with the [employer] (ACR). RADIATION OPTIMIZATION: All CT scans at this facility use at least one of these dose optimization te chniques: automated exposure control; mA and/or kV adjustment per patient size (includes targeted exa ms where dose is matched to clinical indication); or iterative reconstruction.
[2019-08-01 14:15] VITALS: BP 101/64; PULSE 113; RESP 13; TEMP 36.4; O2SAT 96
[2019-08-01] MEDS: Metoprolol 25 MG TAB PO (14:19)
[2019-08-01 14:20] VITALS: RESP 19
--- NOTE | 2019-08-02 07:22 | W.ORTHOCONSU ---
Date of service: 08/01/19 Time of Service: 13:38 History of Present Illness History of Present Illness Chief Complaint: Right hip pain Narrative: Linda is an 84-year-old who has multiple medical comorbidities. She presented to the ED today due to concerns of worsening peripheral edema by her home health nurse. During the examination and work-up she complained of some right leg pain. She was quite vague of this pain but mostly pointed to the hip region extending down to the anterior right knee. There was some notable pain with examination although she has been able to be walking and she did tolerate some of the exam quite well. Therefore, this prompted an x-ray which demonstrated a chronic femoral head fracture with notable displacement and incongruity of the hip joint. I was called for consultation. Linda reports that she has been having hip pain for a few months now. She is quite unclear about details of any falls although she reports having had a few starting 3 years ago. Most of these are mechanical in nature and she feels that she was able to get up and get going afterwards having some pain. She is limited in her ambulatory capacity but attributed this to her other medical issues. She is able to stand and move on the right side although with pain. This pain is mostly in the buttock, groin, and rating down towards the anterior knee. She feels that it will give way sometimes as well. Consults Consult date: 08/01/19 Requesting physician: Norma Cifuentes Consult Reason Right hip fracture Assessment and Plan Assessment and plan (1) Fracture of head of right femur: Status: Acute Assessment and plan: Linda is an 84-year-old female who has multiple medical comorbidities. Incidentally today she was found to have a chronic right femoral head fracture. CT scan does not show anything suspicious except for the nature of the fracture itself. She does have some cystic change at the level of the acetabulum and the femur which is to be expected with a disease process. However, I see nothing to suggest that this is a malignancy. Her CRP is relatively normal, especially given underlying heart disease. It is quite possible that she had a subtle fracture on 1 of her falls which progressed to this displaced and chronic appearing fracture. It is also somewhat concerning for a Charcot type arthropathy. However, she does not have any sign of a pervasive nerve root disease or peripheral nerve disease to suggest that this is possible. Therefore, I do think this represents a chronic femoral head fracture which would best be treated with a hip replacement. She is functioning, although minimally, but would benefit from hip replacement. Given that this is not acute, I would recommend that she becomes medically optimized. I am concerned about her diabetes status as well as her peripheral edema and his status of congestive heart failure. She does have difficult to manage hyponatremia. There will be noticeable disability if we continue to treat the right hip nonoperatively, however, having a complication from hip replacement would be much worse. Therefore, I will discuss this with Dr. Yeh and develop a plan for preoperative optimization prior to proceeding with a hip replacement of the right side. Qualifiers: Encounter type: initial encounter Fracture type: closed Qualified Code(s): S72.051A - Unspecified fracture of head of right femur, initial encounter for closed fracture Review of Systems All systems reviewed & are unremarkable except as noted in HPI and below [facility] Medical History Arthritis (Acute) ASCVD (arteriosclerotic cardiovascular disease) (Acute 04/22/15) [place] out of hosp cardiac arrest LAD stent, LVEF 35% Atrial fibrillation (Acute 05/27/11) paroxysmal Oct 2009 Carpal tunnel syndrome on both sides (Acute) CHF (congestive heart failure) (Chronic) Chronic low back pain (Acute) Essential hypertension (Acute 01/04/13) echo 2007 LVH uncontrolled BP (neg w/u for pheo) Foot drop, left (Acute) GERD (gastroesophageal reflux disease) (Chronic) Hyperlipidemia (Acute) Hypertensive retinopathy (Acute) Impaired left ventricular function (Acute ~05/2019) [facility] [place]; 35% Low back pain (Acute) Lumbar stenosis (Acute) Mild obstructive sleep apnea (Acute 11/17/15) [facility] NSTEMI (non-ST elevated myocardial infarction) (Acute ~05/2019) [facility] [place] Type II diabetes mellitus with complication, uncontrolled (Acute 05/14/14) Surgical History History of appendectomy (Chronic) Family History Brother Cancer Brother Cancer Mother Asthma Social History Smoking/Tobacco Use Status: Never Alcohol Intake: never Drug use: Never Substance use type: does not use Household members: none current occupation: Retired Pets and animals: Yes Pets and animals: cat(s) and dog(s) Frequency: does not exercise Faviola/Jain: Sikh Agree to transfusion: No Do you feel safe at home: Yes Do you feel safe in your relationship?: Yes Exam Const General: cooperative, no acute distress, well developed and well groomed Nutritional Appearance: overweight Orientation: alert, awake and oriented x3 HENMT Head: normal to inspection and normocephalic Resp Effort & Inspection: normal respiratory effort and able to speak in complete sentences Extrem Other: Evaluation of the right hip and leg shows no overlying skin changes. Throughout the leg I can palpate no masses except for some swelling around the right hip and overlying the greater trochanter. This is mildly painful to palpation. There is no streaking and there is no adenopathy. He does have limited range of motion of the right hip. However, gentle internal X rotation does not cause significant pain. However, I flex her hip past 40 degrees she starts having pain which is significantly worsened with any internal or external rotation. She does have limited rotation with only about 30 degrees arc. She is unable to straight leg raise the right side. She reports pain in trying to attempt this. She has no significant pain with palpation of the right knee. Minimal pain along the medial joint line. Notable peripheral edema from the knee down, 3+. Active dorsiflexion and plantarflexion of the ankle as well as extension and flexion of the great toe. She does report some decrease sensation in the feet in a stocking type distribution, focus mostly over the first webspace. She is able to show good strength with EHL function as well as ankle dorsiflexion and eversion. Palpable PT pulse. Minimal skin changes from venous stasis. Results Last Vital Signs Temp 36.4 C L 08/01/19 14:15 Pulse 113 H 08/01/19 14:15 Resp 19 08/01/19 14:20 BP 101/64 08/01/19 14:15 Pulse Ox 96 08/01/19 14:15 Labs Result diagrams: 08/01/19 12:32 08/01/19 12:32 Labs: Laboratory Results - last 24 hr 0508/01/19 08/01/19 12:32 12:32 12:32 WBC 9.14 RBC 4.10 Hgb 12.1 Hct 36.2 MCV 88.3 MCH 29.5 MCHC 33.4 RDW 15.8 H Plt Count 256 MPV 12.0 H Immature Gran % 0.2 Neutrophils % 71.1 Lymphocytes % 18.5 Monocytes % 8.9 Eosinophils % 0.9 Basophils % 0.4 Absolute Neutrophils 6.50 Absolute Lymphocytes 1.69 Absolute Monocytes 0.81 H Absolute Eosinophils 0.08 Absolute Basophils 0.04 PT 20.2 H INR 2.0 H APTT 25.4 Sodium 128 L Potassium 4.8 Chloride 92 L Carbon Dioxide 27.1 Anion Gap 8.9 BUN 34 H Creatinine 1.65 H Estimated GFR/1.73 m2 29.71 Glucose 227 H Calcium 9.3 Magnesium 1.9 Total Bilirubin 0.4 AST 25 ALT 23 Alkaline Phosphatase 85 Troponin I < 0.05 C-Reactive Protein NT-Pro-B Natriuret Pep 2303 H Total Protein 7.7 Albumin 3.4 08/01/19 12:32 WBC RBC Hgb Hct MCV MCH MCHC RDW Plt Count MPV Immature Gran % Neutrophils % Lymphocytes % Monocytes % Eosinophils % Basophils % Absolute Neutrophils Absolute Lymphocytes Absolute Monocytes Absolute Eosinophils Absolute Basophils PT INR APTT Sodium Potassium Chloride Carbon Dioxide Anion Gap BUN Creatinine Estimated GFR/1.73 m2 Glucose Calcium Magnesium Total Bilirubin AST ALT Alkaline Phosphatase Troponin I C-Reactive Protein 0.31 H NT-Pro-B Natriuret Pep Total Protein Albumin Imaging Imaging Studies: X-ray of the right hip shows a superior laterally displaced proximal femur with a fragmented femoral head. There appear to be head fragment sitting within the acetabulum of the majority of the proximal femur is subluxed superiorly and laterally. There are some cystic changes seen throughout the proximal femur as well as within the acetabulum and the hemipelvis. CT scan of the right hip demonstrates a chronic femoral head fracture. This primarily involves the superior aspect of the femoral head with fragmentation seen within the acetabulum. There are some cystic change at the level of the subchondral bone of the acetabulum but nothing to suggest soft tissue mass nor a malignancy. There are some developing changes where the superior neck starting to articulate with the acetabulum. There is a large hip effusion.
[2019-08-02 08:10] LABS: Hemoglobin A1C 8.1 % (3.8-5.6)
--- NOTE | 2019-08-02 08:19 | PDOC.ERCMPRO ---
- If Service Date Differs Date of service: 08/01/19 Time of Service: 08:19 Care Management Progress Note At the request of ED provider, CM coordinates referral to [facility] for increased nursing visits.
== END 2019-08-01 15:40 | disposition home or self-care (01) ==
PROVIDERS: Student in an Organized Health Care Education/Training Program; Emergency Provider Physician Assistant; PCP Family Medicine
DX: S72.091A Other fracture of head and neck of right femur, initial encounter for closed fracture (principal); W19.XXXA Unspecified fall, initial encounter; R60.0 Localized edema; E87.1 Hypo-osmolality and hyponatremia; E11.65 Type 2 diabetes mellitus with hyperglycemia; Z79.4 Long term (current) use of insulin; I48.91 Unspecified atrial fibrillation; Z79.01 Long term (current) use of anticoagulants; I11.0 Hypertensive heart disease with heart failure; I50.9 Heart failure, unspecified
CPT/HCPCS: 36415; 73552; 80053; 93005; 96374; 99253; 99283; 99285; 71046; 73700; 83036; 83735; 83880; 84484; 85025; 85610; 85730; 86140; 93010; J1940

== ENCOUNTER 2019-08-08 13:48 | Outpatient (REF) | payer MEDICARE, OTHER, SELFPAY ==
[2019-08-08 14:15] LABS: Anion Gap 7.8 mmol/L (3-11); BUN 72 mg/dL (7-18); CO2 27.2 mmol/L (21.0-32.0); CREATININE 1.81 mg/dL (0.55-1.02); Calcium 9.3 mg/dL (8.5-10.1); Chloride 92 mmol/L (98-107); Glucose 308 mg/dL (74-106); Potassium 4.6 mmol/L (3.5-5.1); Sodium 127 mmol/L (136-145)
== END 2019-08-08 14:08 ==
LOC: LBN 13:48
PROVIDERS: PCP Family Medicine; Visit Provider Family Medicine
DX: E87.1 Hypo-osmolality and hyponatremia (principal); N28.9 Disorder of kidney and ureter, unspecified; E11.9 Type 2 diabetes mellitus without complications; E78.5 Hyperlipidemia, unspecified; K21.9 Gastro-esophageal reflux disease without esophagitis
CPT/HCPCS: 80048

== ENCOUNTER 2019-09-27 11:50 | Outpatient (CLI) | payer MEDICARE, OTHER, SELFPAY ==
--- NOTE | 2019-09-27 11:00 | DI.RAD_ITS ---
EXAM: XR HIP RT COMPLETE AP PELVIS INDICATION: R HIP PAIN. COMPARISON: CR XR FEMUR RT from 08/01/2019 TECHNIQUE: 2D digital imaging was performed. FINDINGS: There is marked deformity and loss of volume of the right femoral head which appears unchanged compar ed to the prior examination. No new fracture or dislocation is identified. In left hip, degenerativ e changes are present characterized by joint space narrowing, subchondral sclerosis and cyst. Vascul ar calcifications are present. IMPRESSION: Stable changes involving the right femoral head. DATA REPOSITORY: RADIATION DOSE DELIVERED:
== END 2019-09-27 12:10 ==
PROVIDERS: PCP Family Medicine; Referring Provider Family Medicine; Visit Provider Student in an Organized Health Care Education/Training Program
DX: M25.551 Pain in right hip (principal); S72.051D Unspecified fracture of head of right femur, subsequent encounter for closed fracture with routine healing; M16.12 Unilateral primary osteoarthritis, left hip; X58.XXXD Exposure to other specified factors, subsequent encounter; E11.9 Type 2 diabetes mellitus without complications
CPT/HCPCS: 99213; 73502

== ENCOUNTER → 2019-10-01 12:30 | Outpatient (BNVA) | payer MEDICARE, OTHER, SELFPAY | PROVIDERS: PCP Family Medicine; Referring Provider Family Medicine; Visit Provider Internal Medicine Cardiovascular Disease | DX: I25.10 Atherosclerotic heart disease of native coronary artery without angina pectoris (principal); I48.91 Unspecified atrial fibrillation; I11.0 Hypertensive heart disease with heart failure; I50.9 Heart failure, unspecified; E11.9 Type 2 diabetes mellitus without complications; Z01.810 Encounter for preprocedural cardiovascular examination; R60.0 Localized edema | CPT/HCPCS: 99213 ==

== ENCOUNTER 2019-10-01 13:03 | Inpatient (IN) | payer MEDICARE, OTHER, SELFPAY ==
[2019-10-01] VITALS (136 sets, daily range): BP systolic 84–136; BP diastolic 29–110; PULSE 60–149; RESP 12–32; TEMP 36.1–37.2; O2SAT 90–98
--- NOTE | 2019-10-01 13:34 | W.ED.GENAD ---
Discharge Plan Discharge Details Chief Complaint: Palpitatns Admit Date/Time: 10/01/19 15:40 Admit Provider: Cristin Finley Attending Provider: Cristin Finley Primary Care Provider: Rad Yeh ED Provider: Stacie Moore Medical Decision Making Linda Bautista is an 84-year-old woman with a history of atrial fibrillation, and STEMI, CHF, diabetes, hyperlipidemia, hypertension who presented to the emergency department for asymptomatic tachycardia found at preop clearance cardiology appointment just prior to arrival. On exam patient is in no distress and nontoxic-appearing. Heart rate 150s. Lungs clear. 3+ pitting edema bilateral lower extremities. Concern for A. fib/a flutter with rapid ventricular rhythm, metabolic/lyte abnormality, CHF. Doubt PE, ACS. Exam/history at this time is not consistent with acute aortic etiology, sepsis. Plan for EKG, screening labs, IV, telemetry. I discussed the patient with Dr. Swanson of cardiology who sent patient to ED and to reviewed EKG, recommends metoprolol IV as treatment for a flutter at this time given patient on p.o. metoprolol. 5 mg IV metoprolol given, patient's rate decreased from 150 to 135. An additional 5 mg metoprolol x2 was given at 5-minute intervals with no further decrease in heart rate. Patient's blood pressure 100 systolic. Labs reviewed, troponin resulted 0.07, BNP elevated at 1700. Patient remains pain-free. Patient given 40 mg IV Lasix. I did discuss patient with Dr. Swanson again who recommended IV diltiazem, stated that her listed allergy is an adverse reaction and not a true allergy. Recommended avoiding other agents or cardioversion at this time. I did also discuss the patient with cardiology team at [facility], who refused emergent transfer as patient unlikely to have procedural intervention. Discussed the patient with Dr. Finley who will admit to medicine, requests lower extremity ultrasounds. Patient remained chest pain-free on reassessment. Heart rate 80. Blood pressure remains stable. Clinical impression: atrial flutter with rapid ventricular rate Disposition: [facility] inpatient Medical Records Medical records reviewed: Yes I reviewed the patient's medical records. Imaging Data Radiologic Study: Attestation: I personally reviewed and interpreted this imaging study as follows: Radiologist's impression: EXAM: US EXTREMITY VENOUS BI CLINICAL HISTORY: leg swelling. TECHNIQUE: Bilateral lower extremity venous ultrasound performed using grayscale, color-flow, and spectral Doppler analysis. COMPARISON: No exams were available for comparison FINDINGS: Left lower extremity: The bilateral common femoral, femoral and popliteal veins demonstrate normal compressibility, augmentation, and color Doppler. The posterior tibial veins are patent. No superficial venous thrombosis or Mcbride's cyst. Right lower extremity: The common femoral, femoral, popliteal veins are freely compressible. No thrombus is visible. The Doppler venous waveform augments normally. One of the posterior tibial veins is noncompressible and shows thrombus proximally. The distal portions of the calf veins could not be visualized due to edema. No superficial venous thrombosis or Mcbride's cyst. IMPRESSION: Right: Posterior tibial vein thrombosis. Left: Negative for DVT Lab Data Lab results reviewed: Yes I reviewed the patient's lab results. Labs: Laboratory Tests Range/Units 10/01/19 10/01/19 10/01/19 13:30 13:30 13:30 WBC (4.4-10.8) k/cumm 9.55 RBC (4.00-5.20) m/cumm 4.27 Hgb (12.0-15.5) g/dL 12.5 Hct (36.0-46.0) % 37.4 MCV (80-95) fL 87.6 MCH (27.0-33.0) pg 29.3 MCHC (32.0-36.0) g/dL 33.4 RDW (11.7-14.6) % 14.6 Plt Count (130-400) x1000/uL 210 MPV (8.0-11.0) fL 12.6 H Immature Gran % % 0.2 Neutrophils % 71.1 Lymphocytes % 16.2 Monocytes % 11.3 Eosinophils % 0.9 Basophils % 0.3 Absolute Neutrophils (1.2-6.7) k/cumm 6.78 H Absolute Lymphocytes (1.2-3.4) k/cumm 1.55 Absolute Monocytes (0.11-0.7) k/cumm 1.08 H Absolute Eosinophils (0.0-0.7) k/cumm 0.09 Absolute Basophils (0.0-0.2) k/cumm 0.03 PT (9.3-11.0) sec 29.3 H INR (0.9-1.1) 3.0 H Sodium (136-145) mmol/L 130 L Potassium (3.5-5.1) mmol/L 4.7 Chloride (98-107) mmol/L 95 L Carbon Dioxide (21.0-32.0) mmol/L 26.2 Anion Gap (3-11) mmol/L 8.8 BUN (7-18) mg/dL 37 H Creatinine (0.55-1.02) mg/dL 1.78 H Estimated GFR/1.73 m2 (mL/min/1.73m2) 27.22 Glucose (74-106) mg/dL 215 H Calcium (8.5-10.1) mg/dL 9.3 Magnesium (1.8-2.4) mg/dL 1.7 L Total Bilirubin (0.2-1.0) mg/dL 0.6 AST (15-37) U/L 21 ALT (14-59) U/L 20 Alkaline Phosphatase (46-116) U/L 77 Troponin I (<0.06) ng/mL 0.07 NT-Pro-B Natriuret Pep (<300) pg/mL 1785 H Total Protein (6.4-8.2) g/dL 7.9 Albumin (3.4-5.0) g/dL 3.5 ECG Data Attestation: I personally reviewed and interpreted this ECG (s) as follows: Interpretation: EKG shows likely atrial flutter at 150, left bundle branch block present on prior EKGs, does not meet STEMI criteria HPI General Mode of arrival: ambulatory. Date/Time Provider Initiated Documentation: 10/01/19 13:10. Limitations to Documentation: no limitations. Information obtained by: patient. HPI Narrative: Linda Bautista is an 84-year-old woman with a history of hypertension, diabetes, hyperlipidemia, atrial fibrillation on Coumadin, right hip fracture, CHF presenting to the emergency department with tachycardia. Patient had an appointment today with cardiology for preop clearance for hip fracture. Patient was found to be tachycardic at 150 at cardiology appointment and was sent to the emergency department for further evaluation. I did speak with Dr. Swanson of cardiology, who reviewed EKG and chart, Tachycardia consistent with atrial flutter, recommends metoprolol bolus. Patient was CHF in chart, however Dr. Swanson reports last EF was normal. Patient reports that she has pain in her right hip, denies any other pain. Patient reports that she has been sitting on a couch with her feet flat on the ground for extended periods of time recently due to her right hip pain. She reports that she has also been sleeping in that position due to right hip pain. Patient denies having any shortness of breath when lying flat, reports that she sleeps sitting up on the couch with her feet on the ground because it is the only position that she can get relief from her hip pain and. She denies fever, shortness of breath, cough, vomiting, diarrhea, numbness, weakness. Patient states that she has been eating and drinking as usual and taking her medication as usual. Related Data Home Medications Medication Instructions Recorded Confirmed ascorbic acid (vitamin C) 2 tab PO DAILY PRN 07/15/12 10/01/19 multivitamin [Daily Multi-Vitamin] 1 tab PO DAILY 07/15/12 10/01/19 [place] 600 mg PO DAILY 08/13/14 10/01/19 chromium picolinate 1,000 mcg PO daily prn 08/13/14 10/01/19 acetaminophen 500 mg capsule 500 mg PO BID PRN cap 12/13/18 10/01/19 atorvastatin 40 mg tablet 40 mg PO HS #90 tab-cap 04/17/19 10/01/19 nitroglycerin 0.4 mg sublingual 0.4 mg SUBLINGUAL Q 5 MIN PRN #25 04/17/19 10/01/19 tablet tab-cap pantoprazole 40 mg tablet,delayed 40 mg PO DAILY #90 tab-cap 04/17/19 10/01/19 release pen needle, diabetic 32 gauge x #100 each 04/17/19 10/01/19 spironolactone 50 mg tablet 50 mg PO DAILY #90 tab-cap 04/17/19 10/01/19 amlodipine 5 mg tablet 5 mg PO DAILY #90 tab 04/27/19 10/01/19 furosemide 20 mg tablet 40 mg PO DAILY #180 tab-cap 06/13/19 10/01/19 metoprolol succinate 50 mg 150 mg PO DAILY #90 tab 06/13/19 10/01/19 tablet,extended release 24 hr aspirin 81 mg tablet,delayed 81 mg PO DAILY 06/20/19 10/01/19 release fentanyl 25 mcg/hr transdermal 1 patch TD Q72H #10 each MDD 25 mcg 09/19/19 10/01/19 patch Tresiba FlexTouch U-100 18 unit SC QHS 10/01/19 10/01/19 warfarin 2.5 mg PO DIRECTED 10/01/19 10/01/19 Previous Rx's Medication Instructions Recorded atorvastatin 40 mg tablet 40 mg PO HS #90 tab-cap 04/17/19 nitroglycerin 0.4 mg sublingual 0.4 mg SUBLINGUAL Q 5 MIN PRN #25 04/17/19 tablet tab-cap pantoprazole 40 mg tablet,delayed 40 mg PO DAILY #90 tab-cap 04/17/19 release pen needle, diabetic 32 gauge x #100 each 04/17/19 spironolactone 50 mg tablet 50 mg PO DAILY #90 tab-cap 04/17/19 amlodipine 5 mg tablet 5 mg PO DAILY #90 tab 04/27/19 furosemide 20 mg tablet 40 mg PO DAILY #180 tab-cap 06/13/19 metoprolol succinate 50 mg 150 mg PO DAILY #90 tab 06/13/19 tablet,extended release 24 hr fentanyl 25 mcg/hr transdermal 1 patch TD Q72H #10 each MDD 25 mcg 09/19/19 patch Allergies Allergy/AdvReac Type Severity Reaction Status Date / Time Tetanus Vaccines and Toxoid Allergy Intermediate Verified 10/01/19 13:14 diltiazem AdvReac Severe tired, Verified 10/01/19 13:14 hand pain doxycycline AdvReac Severe GI UPSET Verified 10/01/19 13:14 verapamil AdvReac Severe dizziness Verified 10/01/19 13:14 doxazosin mesylate AdvReac Intermediate muscle Verified 10/01/19 13:14 [From Cardura] aches atenolol AdvReac Mild leg pain Verified 10/01/19 13:14 General Stated Complaint: Palpitatns GELA: 2 Review of Systems Narrative: Constitutional: denies fevers Eyes: denies eye pain ENT: denies ear pain, dental pain, sore throat Cardiovascular: denies chest pain, palpitations, reports lower extremity edema bilaterally Respiratory: denies SOB, cough GI: denies abdominal pain, vomiting, diarrhea : denies flank pain MSK: denies back pain, neck pain, reports chronic right hip pain, unchanged Skin: denies rash Neuro: denies headaches, numbness, weakness [facility] Medical History Arthritis (Acute) ASCVD (arteriosclerotic cardiovascular disease) (Acute 04/22/15) [place] with out of hosp cardiac arrest LAD stent, LVEF 35% Atrial fibrillation (Acute 05/27/11) paroxysmal Oct 2009 Carpal tunnel syndrome on both sides (Acute) CHF (congestive heart failure) (Chronic) Chronic low back pain (Chronic) Complementary medicine (Chronic) homeopathic primarily: DNI (do not intubate) (Acute) DNR (do not resuscitate) (Acute) Essential hypertension (Acute 01/04/13) echo 2007 [facility] uncontrolled BP (neg w/u for pheo) Foot drop, left (Acute) GERD (gastroesophageal reflux disease) (Chronic) Hip pain, right (Chronic) Hyperlipidemia (Acute) Hypertensive retinopathy (Acute) Impaired left ventricular function (Acute ~05/2019) [facility] [place] Low back pain (Acute) Lumbar stenosis (Acute) Mild obstructive sleep apnea (Acute 11/17/15) [facility] NSTEMI (non-ST elevated myocardial infarction) (Acute ~05/2019) [facility] [place] care patient (Acute) Pedal edema (Acute) POLST (Physician Orders for Life-Sustaining Treatment) (Chronic) done 08/08/19 Refusal of blood transfusions as patient is Latter-day (Acute) Renal insufficiency (Chronic) Type II diabetes mellitus with complication, uncontrolled (Acute 05/14/14) Social History Smoking/Tobacco Use Status: Never Second Hand Exposure: No Alcohol Intake: never Drug use: Never Substance use type: does not use Caregiver/Support person: No Household members: none Housing: house Number of Children: 4 number of grandchildren: 5 Communication Needs: Corrective Lenses Education Level: high school Do you need help understanding health information?: Often current occupation: Retired Pets and animals: Yes Pets and animals: cat(s) and dog(s) Current gender identity: female What is your relationship status?: How often do you talk on the phone with friends or family?: three or more times per week How often do you get together with friends or relatives?: three or more times per week Panel score (0-1 are the most socially isolated patients): 1 What type of physical activity do you participate in: assisted ambulation Duration: < 15 minutes/day Frequency: does not exercise Faviola/Presybeterian: Latter-day Special faviola needs: Yes (no transfusion) Agree to transfusion: No Seatbelt use: always Drive intox or ride w/intox non cdl driver: No Do you feel safe at home: Yes Do you feel safe in your relationship?: Yes Additional Social history: Lives alone but sons and their spouses check in regularly. Getting some HH services. ALso hires [employer] to help with ADLs. Hip pain bad lately; has known fracture, which is old--not sure when she broke her hip. Interested in completing COLST--done today Exam Narrative Exam Narrative: Constitutional: Acutely [id number], pleasant, conversing normally HENT: head atraumatic/normocephalic/normal inspection, mucous membranes moist Eyes: conjunctiva normal, sclera normal, pupils 3mm b/l Neck: no stridor, normal ROM, trachea midline Chest: normal inspection Resp: normal work of breathing, LCTAB Cardio: Tachycardic rate, normal rhythm, no murmur appreciated GI: abdomen soft, non-tender, non-distended Back: normal inspection, no rash Skin: warm, dry, normal color, no rash Neuro: alert, not altered, grossly non-focal, normal tone Ext: 3+ pitting edema bilateral lower extremities, no posterior calf tenderness to palpation, diffuse tenderness palpation of the right hip, range of motion right hips severely limited secondary to pain, patient reports is unchanged Psych: normal mood, normal affect, normal behavior Course Vital Signs Vital signs: Vital Signs Pulse 147 H 10/01/19 13:09 Respiratory Rate 10/01/19 13:09 Blood Pressure 120/80 10/01/19 13:09 Pulse Oximetry 97 10/01/19 13:09 Temperature Source Skin 10/01/19 13:09 Pulse 147 H 10/01/19 13:09 Respiratory Rate 20 10/01/19 13:09 Respiratory Effort Non-Labored 10/01/19 13:12 Blood Pressure 120/80 10/01/19 13:09 Blood Pressure Position Supine 10/01/19 13:09 Pulse Oximetry 97 10/01/19 13:09 Oxygen Delivery Method Room Air 10/01/19 13:09 Oxygen Flow Rate 0 10/01/19 13:09 Pain Level 0 10/01/19 13:09 Critical Care Time Critical Care Time Critical Care Time: Yes Total Critical Care Time: 40 Attestation: I have spent greater than 40 minutes of critical care time with this critically ill patient including management of infusions, frequent reassessments, discussions with consultants.
[2019-10-01 13:40] LABS: Abs Immature Grans 0.02 k/cumm (0.0-0.09); Absolute Basophil Count 0.03 k/cumm (0.0-0.2); Absolute Eosinophil Count 0.09 k/cumm (0.0-0.7); Absolute Lymphocyte Count 1.55 k/cumm (1.2-3.4); Absolute Monocyte Count 1.08 k/cumm (0.11-0.7); Absolute Neutrophil Count 6.78 k/cumm (1.2-6.7); Basophils % 0.3; Eosinophils % 0.9; HCT 37.4 % (36.0-46.0); HGB 12.5 g/dL (12.0-15.5); Immature Grans % 0.2 %; Lymphocytes % 16.2; Mean Corp. HGB Concentration 33.4 g/dL (32.0-36.0); Mean Corpuscular Hemoglobin 29.3 pg (27.0-33.0); Mean Corpuscular Volume 87.6 fL (80-95); Mean Platelet Volume 12.6 fL (8.0-11.0); Monocytes % 11.3; Neutrophils % 71.1; Platelet Count 210 x1000/uL (130-400); RBC 4.27 m/cumm (4.00-5.20); RBC Distribution Width 14.6 % (11.7-14.6); White Blood Cell Count 9.55 k/cumm (4.4-10.8)
[2019-10-01] MEDS: Metoprolol 5 MG/5 ML VIAL IVP ×3 (13:44→14:30)
[2019-10-01 14:01] LABS: Prothrombin Time 29.3 sec (9.3-11.0)
[2019-10-01 14:04] LABS: ALT 20 U/L (14-59); AST 21 U/L (15-37); Albumin 3.5 g/dL (3.4-5.0); Alkaline Phosphatase 77 U/L (46-116); Anion Gap 8.8 mmol/L (3-11); BUN 37 mg/dL (7-18); Bilirubin, Total 0.6 mg/dL (0.2-1.0); CO2 26.2 mmol/L (21.0-32.0); CREATININE 1.78 mg/dL (0.55-1.02); Calcium 9.3 mg/dL (8.5-10.1); Chloride 95 mmol/L (98-107); Estimated GFR 27.22 (mL/min/1.73m2); Glucose 215 mg/dL (74-106); Magnesium 1.7 mg/dL (1.8-2.4); NT-proBNP 1785 pg/mL (<300); Potassium 4.7 mmol/L (3.5-5.1); Sodium 130 mmol/L (136-145); Total Protein 7.9 g/dL (6.4-8.2)
[2019-10-01 14:08] LABS: Troponin I 0.07 ng/mL (<0.06)
[2019-10-01] MEDS: Furosemide 40 MG/4 ML VIAL IVP (14:34)
[2019-10-01] MEDS: MAGNESIUM SULFATE 1 GM/100 ML BAG IVPB (14:37)
--- NOTE | 2019-10-01 15:15 | DI.US_ITS ---
EXAM: US EXTREMITY VENOUS BI CLINICAL HISTORY: leg swelling. TECHNIQUE: Bilateral lower extremity venous ultrasound performed using grayscale, color-flow, and sp ectral Doppler analysis. COMPARISON: No exams were available for comparison FINDINGS: Left lower extremity: The bilateral common femoral, femoral and popliteal veins demonstrate normal co mpressibility, augmentation, and color Doppler. The posterior tibial veins are patent. No superficia l venous thrombosis or Mcbride's cyst. Right lower extremity: The common femoral, femoral, popliteal veins are freely compressible. No thro mbus is visible. The Doppler venous waveform augments normally. One of the posterior tibial veins i s noncompressible and shows thrombus proximally. The distal portions of the calf veins could not be visualized due to edema. No superficial venous thrombosis or Mcbride's cyst. IMPRESSION: Right: Posterior tibial vein thrombosis. Left: Negative for DVT DATA REPOSITORY:
[2019-10-01] MEDS: dilTIAZem 125 MG in Normal Saline 100 ML IV (15:20)
--- NOTE | 2019-10-01 16:31 | W.PM.HP.N ---
Date of service: 10/01/19 Time of Service: 16:31 Assessment and Plan Assessment and plan (1) Paroxysmal atrial fibrillation with RVR: Status: Acute Assessment and plan: Presence of DVT in RLE despite being on coumadin indicates she may have had a PE, which would have triggered Afib. Alternatively, her overall fluid overloaded status may have triggered this as well. Regardless, I think we need to change her anticoagulation. Will monitor overnight in the ICU and attempt to change her over to PO cardizem/metoprolol combination. Diurese. (2) Acute on chronic diastolic CHF (congestive heart failure), NYHA class 1: Status: Acute Assessment and plan: Continue IV lasix. Compliance with salt needs to be encouraged. (3) Acute deep vein thrombosis (DVT) of right lower extremity: Status: Acute Assessment and plan: Unclear how acute this truly is, but it did happen while the patient was on coumadin, though we do not know if she was therapeutic the whole time. Discussed with Dr Stovall - based on the location of the DVT, it is not a contraindication to surgery. Plant to convert to either lovenox or heparin gtt depending on GFR once INR is <2.0. On discharge, would benefit from a DOAC. (4) Fracture of head of right femur: Status: Chronic Assessment and plan: Discussed with Dr Stovall - our plan is to have the surgery to repair this on this admission. The patient consents to this as well. Qualifiers: Encounter type: initial encounter Fracture type: closed Qualified Code(s): S72.051A - Unspecified fracture of head of right femur, initial encounter for closed fracture (5) DVT prophylaxis: Status: Acute Assessment and plan: Therapeutic on coumadin at this time. (6) Discharge planning issues: Status: Acute Assessment and plan: DNR/DNI Will consult palliative care. Admit to ICU History of Present Illness History of Present Illness Chief Complaint: Sent by cardiology for high heart rate/rapid Afib Narrative: Ms Bautista is an 84 year old female with PMHx of a chronic right femoral head fx (onset unclear), awaiting surgery by Dr Stovall, as well as h/o CAD s/p NSTEMI, Afib, s/p cardioversion in the past, on coumadin, CHF, pulmonary hypertension, CKD, HTN, dyslipidemia, who was sent to the ED today after being evaluated in the cardiology office for a routine preop visit prior to her orthopedic surgery. She was found to be in Rapid Afib with HR of 150 and to have bilateral peripheral edema. The patient states the edema has been getting progressively worse for a month. Some of this she attributes to not elevating her legs and not having worn the compression stockings in the last 24 hours or so, but then she does also admit her love/weakness for dill pickles. Her heart rate remained elevated despite 3 doses of IV lopressor, so she was initiated on cardizem gtt. Her heart rate at the time of my exam varies between high 80s and very low 100s. The patient is asymptomatic. We were asked to admit the patient for further care. Review of Systems Narrative: 12 systems reviewed. Pertinent positives and negatives are as per HPI. Patient specificlaly denies chest pain, dizziness, palpitations, shortness of breath. She has been taking her coumadin faithfully. She endorses R hip pain. [facility] Medical History Arthritis (Acute) ASCVD (arteriosclerotic cardiovascular disease) (Acute 04/22/15) CT with out of hosp cardiac arrest LAD stent, LVEF 35% Atrial fibrillation (Acute 05/27/11) paroxysmal Oct 2009 Carpal tunnel syndrome on both sides (Acute) CHF (congestive heart failure) (Chronic) Chronic low back pain (Chronic) Complementary medicine (Chronic) homeopathic primarily: DNI (do not intubate) (Acute) DNR (do not resuscitate) (Acute) Essential hypertension (Acute 01/04/13) echo 2007 LV[facility] uncontrolled BP (neg w/u for pheo) Foot drop, left (Acute) GERD (gastroesophageal reflux disease) (Chronic) Hip pain, right (Chronic) Hyperlipidemia (Acute) Hypertensive retinopathy (Acute) Impaired left ventricular function (Acute ~05/2019) [facility] [place]; 35% Low back pain (Acute) Lumbar stenosis (Acute) Mild obstructive sleep apnea (Acute 11/17/15) [facility] N[facility] (non-ST elevated myocardial infarction) (Acute ~05/2019) [facility] [place] Palliative care patient (Acute) Pedal edema (Acute) POLST (Physician Orders for Life-Sustaining Treatment) (Chronic) done 08/08/19 Refusal of blood transfusions as patient is Christian (Acute) Renal insufficiency (Chronic) Type II diabetes mellitus with complication, uncontrolled (Acute 05/14/14) Social History Smoking/Tobacco Use Status: Never Second Hand Exposure: No Alcohol Intake: never Drug use: Never Substance use type: does not use Caregiver/Support person: No Household members: none Housing: house Number of Children: 4 number of grandchildren: 5 Communication Needs: Corrective Lenses Education Level: high school Do you need help understanding health information?: Often current occupation: Retired Pets and animals: Yes Pets and animals: cat(s) and dog(s) Current gender identity: female What is your relationship status?: How often do you talk on the phone with friends or family?: three or more times per week How often do you get together with friends or relatives?: three or more times per week Panel score (0-1 are the most socially isolated patients): 1 What type of physical activity do you participate in: assisted ambulation Duration: < 15 minutes/day Frequency: does not exercise Faviola/Anabaptist: Christian Special faviola needs: Yes (no transfusion) Agree to transfusion: No Seatbelt use: always Drive 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 Getting some HH services. ALso [facility] to help with ADLs. Hip pain bad lately; has known fracture, which is old--not sure when she broke her hip. Interested in completing [facility]--done today Meds Home Medications and Allergies Home Medications Medication Instructions Recorded Confirmed Type ascorbic acid (vitamin C) 2 tab PO DAILY PRN 07/15/12 10/01/19 History multivitamin [Daily Multi-Vitamin] 1 tab PO DAILY 07/15/12 10/01/19 History Mcdonough 600 mg PO DAILY 08/13/14 10/01/19 History chromium picolinate 1,000 mcg PO daily prn 08/13/14 10/01/19 History acetaminophen 500 mg capsule 500 mg PO BID PRN cap 12/13/18 10/01/19 History atorvastatin 40 mg tablet 40 mg PO HS #90 tab-cap 04/17/19 10/01/19 Rx nitroglycerin 0.4 mg sublingual 0.4 mg SUBLINGUAL Q 5 MIN PRN #25 04/17/19 10/01/19 Rx tablet tab-cap pantoprazole 40 mg tablet,delayed 40 mg PO DAILY #90 tab-cap 04/17/19 10/01/19 Rx release pen needle, diabetic 32 gauge x #100 each 04/17/19 10/01/19 Rx spironolactone 50 mg tablet 50 mg PO DAILY #90 tab-cap 04/17/19 10/01/19 Rx amlodipine 5 mg tablet 5 mg PO DAILY #90 tab 04/27/19 10/01/19 Rx furosemide 20 mg tablet 40 mg PO DAILY #180 tab-cap 06/13/19 10/01/19 Rx metoprolol succinate 50 mg 150 mg PO DAILY #90 tab 06/13/19 10/01/19 Rx tablet,extended release 24 hr aspirin 81 mg tablet,delayed 81 mg PO DAILY 06/20/19 10/01/19 History release fentanyl 25 mcg/hr transdermal 1 patch TD Q72H #10 each MDD 25 mcg 09/19/19 10/01/19 Rx patch Tresiba FlexTouch U-100 18 unit SC QHS 10/01/19 10/01/19 History warfarin 2.5 mg PO DIRECTED 10/01/19 10/01/19 History Allergies Allergy/AdvReac Type Severity Reaction Status Date / Time Tetanus Vaccines and Toxoid Allergy Intermediate Verified 10/01/19 13:14 diltiazem AdvReac Severe tired, Verified 10/01/19 13:14 hand pain doxycycline AdvReac Severe GI UPSET Verified 10/01/19 13:14 verapamil AdvReac Severe dizziness Verified 10/01/19 13:14 doxazosin mesylate AdvReac Intermediate muscle Verified 10/01/19 13:14 [From Sydnee] aches atenolol AdvReac Mild leg pain Verified 10/01/19 13:14 Exam Narrative Exam Narrative: General: Extraordinarily pleasant elderly female, A&Ox3, sitting comfortably in bed Neurological: A&Ox3,no focal deficits Psychiatric: Appropriate speech pattern/content Skin: Visible skin intact HEENT: Atraumatic, normocephalic, EOMI, MMM, clear oropharynx, no submandibular or cervical lymphadenopathy, no goiter or JVD Cardiovascular: irregularly irregular rhythm, no m/r/g Lungs: CTAB Gastrointestinal: soft,nontender, nondistended Genitourinary: deferred Extremities: 3+ BLE edema, symmetric, no c/c, 1+ bilateral pedal pulses Results Imaging Additional studies: Venous doppler BLE's: Right: Posterior tibial vein thrombosis. Left: Negative for DVT EKG: HR 150, Afib, nonspecific ST-T changes. Labs Result diagrams: 10/01/19 13:30 10/01/19 13:30 Labs: Laboratory Results - last 24 hr 10/01/19 10/01/19 10/01/19 13:30 13:30 13:30 WBC 9.55 RBC 4.27 Hgb 12.5 Hct 37.4 MCV 87.6 MCH 29.3 MCHC 33.4 RDW 14.6 Plt Count 210 MPV 12.6 H Immature Gran % 0.2 Neutrophils % 71.1 Lymphocytes % 16.2 Monocytes % 11.3 Eosinophils % 0.9 Basophils % 0.3 Absolute Neutrophils 6.78 H Absolute Lymphocytes 1.55 Absolute Monocytes 1.08 H Absolute Eosinophils 0.09 Absolute Basophils 0.03 PT 29.3 H INR 3.0 H Sodium 130 L Potassium 4.7 Chloride 95 L Carbon Dioxide 26.2 Anion Gap 8.8 BUN 37 H Creatinine 1.78 H Estimated GFR/1.73 m2 27.22 Glucose 215 H Calcium 9.3 Magnesium 1.7 L Total Bilirubin 0.6 AST 21 ALT 20 Alkaline Phosphatase 77 Troponin I 0.07 NT-Pro-B Natriuret Pep 1785 H Total Protein 7.9 Albumin 3.5 Last Vital Signs Pulse 130 H 10/01/19 15:01 Resp 23 10/01/19 15:01 BP 106/78 10/01/19 15:01 Pulse Ox 95 10/01/19 15:01 COVID-19 Screening Have you, or has anyone in your household, traveled outside of [place] in the last 14 days?: NO Had IN PERSON contact w/suspected or confirmed C-19 person: No
[2019-10-01 17:53] LABS: Troponin I 0.07 ng/mL (<0.06)
[2019-10-01 19:17] LABS: Hemoglobin A1C 7.7 % (3.8-5.6)
[2019-10-01] MEDS: Acetaminophen 325 MG TAB PO (20:15)
[2019-10-01] MEDS: Insulin Glargine 300 UNITS/3 ML PEN 18 UNITS SC (21:48)
[2019-10-01] MEDS: Insulin Aspart 300 UNITS/3 ML PEN SC (21:48)
[2019-10-01 23:02] LABS: Troponin I 0.06 ng/mL (<0.06)
[2019-10-02] VITALS (130 sets, daily range): BP systolic 101–130; BP diastolic 49–82; PULSE 57–143; RESP 10–35; TEMP 36–36.4; O2SAT 88–99
[2019-10-02 07:05] LABS: Abs Immature Grans 0.01 k/cumm (0.0-0.09); Absolute Basophil Count 0.04 k/cumm (0.0-0.2); Absolute Eosinophil Count 0.17 k/cumm (0.0-0.7); Absolute Lymphocyte Count 2.11 k/cumm (1.2-3.4); Absolute Monocyte Count 1.08 k/cumm (0.11-0.7); Absolute Neutrophil Count 4.65 k/cumm (1.2-6.7); Basophils % 0.5; Eosinophils % 2.1; HCT 34.9 % (36.0-46.0); HGB 11.6 g/dL (12.0-15.5); Immature Grans % 0.1 %; Lymphocytes % 26.2; Mean Corp. HGB Concentration 33.2 g/dL (32.0-36.0); Mean Corpuscular Volume 87.3 fL (80-95); Mean Platelet Volume 13.2 fL (8.0-11.0); Monocytes % 13.4; Neutrophils % 57.7; Platelet Count 183 x1000/uL (130-400); RBC Distribution Width 14.4 % (11.7-14.6); White Blood Cell Count 8.06 k/cumm (4.4-10.8)
[2019-10-02 07:22] LABS: Anion Gap 6.5 mmol/L (3-11); BUN 36 mg/dL (7-18); CO2 29.5 mmol/L (21.0-32.0); CREATININE 1.73 mg/dL (0.55-1.02); Calcium 9.1 mg/dL (8.5-10.1); Calculated LDL 38 mg/dL (<100); Chloride 95 mmol/L (98-107); Cholesterol 86 mg/dL (<200); Estimated GFR 28.13 (mL/min/1.73m2); Glucose 77 mg/dL (74-106); HDL Cholesterol 36 mg/dL (40-60); Sodium 131 mmol/L (136-145); Triglyceride 62 mg/dL (<150); Troponin I 0.06 ng/mL (<0.06)
[2019-10-02 07:29] LABS: INR 2.9 (0.9-1.1); Prothrombin Time 28.7 sec (9.3-11.0)
[2019-10-02 08:31] LABS: COVID-19 RT-PCR UVMMC Result Negative (Negative)
--- NOTE | 2019-10-02 08:40 | DI.US_ITS ---
APPROVED REPORT EXAM: Comprehensive 2D, Doppler, and color-flow Echocardiogram Patient Location: In-Patient Room/Bed: [id number] Data Communications Engineer: Lee Ann Sadler RDCS (AE) Indications: CHF, Rapid A Fib Other Information Study Quality: Adequate Conclusion Normal left ventricular chamber size and wall thickness. Estimated ejection fraction is 45 to 50%. The anteroapical segment is hypokinetic . Diastolic function is indeterminate Both the right and left atria are normal in size Aortic valve is sclerotic, trileaflet, without stenosis or regurgitation There is severe mitral annular calcification. Mitral leaflets are thickened. There is mild to moder ate mitral regurgitation The tricuspid and pulmonic valves are structurally normal. There is mild to moderate tricuspid regur gitation The ascending aorta is mildly dilated Wall motion Left Ventricle The left ventricle is normal size. The left ventricular systolic function is normal. The left ventric ular ejection fraction is within the normal range. There is normal left ventricular wall thickness. A pical segment hypokinetic Indeterminate There is no ventricular septal defect visualized. LVEF is 45- 50%. Right Ventricle The right ventricle is normal size. The right ventricular systolic function is normal. The RVSP is 28 .1mmHg. Atria The left atrium size is normal. The right atrium size is normal. The interatrial septum is intact wit h no evidence for an atrial septal defect. Aortic Valve The Aortic valve is sclerotic. Aortic valve is trileaflet. There is no aortic valvular stenosis. No a ortic regurgitation is present. Mitral Valve Severe mitral annular calcification. No evidence of mitral valve stenosis. Mild to moderate mitral re gurgitation. Tricuspid Valve The tricuspid valve is normal in structure. There is no tricuspid valve stenosis. Mild to moderate tr icuspid regurgitation. Pulmonic Valve The pulmonary valve is normal in structure. There is no pulmonic valvular stenosis. There is no pulmo alfonso valvular regurgitation. Great Vessels The aortic root is normal in size. The ascending aorta is mildly dilated. IVC is normal in size and c ollapses >50% with inspiration. Pericardium There is no pericardial effusion. 2D Dimensions IVSD d PLAX 0.83 cm F: 0.6-1.0 LV Vol A2C d MOD 64.7 mL LVPW d PLAX 0.82 cm F: 0.6 - 1.0 LV Vol A4C d MOD 81.1 mL LVID d PLAX 4.32 cm F: 3.8 - 5.2 LA vol/ BSA A2C s A-L 29.4 mL/m2 LVDs 3.35 cm F: 2.2 - 3.5 LA vol/ BSA A4C s A-L 34.7 mL/m2 Ao Root d 2.64 cm F: 2.7 - 3.3 LA Vol/ BSA Biplane s A-L 33.5 mL/m2 RA Area A4C 16.52 cm2 LA Area A4C s MOD 19.78 cm2 RA Vol/ BSA A4C s A-L 26.3 mL/m2 LA Area A2C s MOD 17.37 cm2 Ao Asc Diam d 3.28 cm F: 2.3 - 3.1 LV EF A4C MOD 42.8 % LV EF Teichholz 43.6 % LV EF A2C MOD 43.7 % LVEF (Castillo's) 42.20 % F: 54 - 74 LV EF Biplane MOD 42.2 % LV Volume 57.64 mL F: 46 - 106 SV 30.43 mL LV Volume Index 34.51 mL/m2 F: 29 - 61 SV Index 18.22 mL/m2 LV Vol Biplane MOD 72.1 mL FS 21.30 % M-Mode TAPSE 1.85 cm (M/F) >1.7 LV Diastology MV E' medial 0.113 (>0.07 m/s) MV E Vmax 1.10 (0.4-1.3 m/s) LV E/e MED 9.65 (<14) MV E' lateral 0.119 (>0.1 m/s) LV E/e LAT 9.15 (<14) MV E/E' medial 9.66 MV E/E' lateral 9.18 Aortic Valve LVOT Area 2.37 cm2 AoV Area Vmax 1.65 cm2 LVOT Vmax 0.80 m/s AoV Area/ BSA (Vmax) 0.99 cm2/m2 LVOT Mean Kelvin. 0.60 m/s HONEY Mean Kelvin. 1.59 cm2 LVOT Peak Grad 2.6 mmHg HONEY Mean Kelvin. Index 0.95 cm2/m2 LVOT Mean Grad 1.6 mmHg LVOT VTI 0.163 m LVOT Diam s 1.70 cm AoV Vmax 1.15 m/s Velocity Ratio 0.69 AoV Mean Kelvin. 0.89 m/s AoV Peak Grad 5.3 mmHg LVOT SV 38.69 mL AoV Mean Grad 3.3 mmHg AoV VTI 0.196 m AoV Area VTI 1.97 cm2 AoV Area/ BSA (VTI) 1.18 cm/m2 Mitral Valve MV DT 205 (160-240 msec) MR Vmax 3.00 m/s MV PHT 60 msec MR VTI 0.929 m MV Area PHT 3.69 cm2 MR Peak Grad 36.0 mmHg MV VTI 0.274 m MR Mean Grad 29.0 mmHg MV Area VTI 1.41 (4.0-6.0 cm2) MR PISA Radius 0.53 cm MR EROA 0.20 cm2 MR Aliasing Velocity 0.35 m/s MR PISA 1.73 cm2 Pulmonary Valve PV Vmax 0.80 (0.5-1.5 m/s) RVOT Peak Gr. 1.57 mmHg PV Peak Grad 2.6 mmHg RVOT Mean Gr. 1.05 mmHg PV Mean Grad 1.8 mmHg RVOT VTI 0.125 m PV VTI 0.140 m RVOT Vmax 0.63 m/s Tricuspid Valve TR Peak Grad 25.1 mmHg TR Vmax 2.51 m/s RA Pressure 3.00 mmHg RVSP (TR) 28.1 mmHg
[2019-10-02] MEDS: Aspirin E.C. 81 MG TABEC PO (08:44)
[2019-10-02] MEDS: Multivitamin TAB 1 TAB PO (08:44)
[2019-10-02] MEDS: Pantoprazole 40 MG TABCR PO (08:45)
[2019-10-02] MEDS: dilTIAZem 30 MG TAB PO ×3 (08:45→20:28)
[2019-10-02] MEDS: Furosemide 40 MG/4 ML VIAL IVP ×2 (09:38→16:13)
[2019-10-02] MEDS: Acetaminophen 325 MG TAB PO ×2 (09:46→14:33)
[2019-10-02] MEDS: Normal Saline Flush 10 ML SYR ×2 (10:01→16:12)
--- NOTE | 2019-10-02 10:03 | PDOC.CMIN ---
- If Service Date Differs Date of service: 10/02/19 Time of Service: 10:03 Care Management Initial Assess REASON FOR HOSPITALIZATION:: Rapid afib, CHF, history of fracture of the right femur to be repaired. PAST MEDICAL HISTORY/PAST SURGICAL HISTORY:: Arthritis (Acute). ASCVD (arteriosclerotic cardiovascular disease) (Acute 04/22/15). [place] with out of hosp cardiac arrest. LAD stent, LVEF 35%. Atrial fibrillation (Acute 05/27/11). paroxysmal Oct 2009. Carpal tunnel syndrome on both sides (Acute). CHF (congestive heart failure) (Chronic). Chronic low back pain (Chronic). Complementary medicine (Chronic). homeopathic primarily: DNI (do not intubate) (Acute). DNR (do not resuscitate) (Acute). Essential hypertension (Acute 01/04/13). echo 2007 [facility]. uncontrolled BP (neg w/u for pheo). Foot drop, left (Acute). GERD (gastroesophageal reflux disease) (Chronic). Hip pain, right (Chronic). Hyperlipidemia (Acute). Hypertensive retinopathy (Acute). Impaired left ventricular function (Acute ~05/2019). [facility] [place] [facility] [place]%. Low back pain (Acute). Lumbar stenosis (Acute). Mild obstructive sleep apnea (Acute 11/17/15). [facility]. NSTEMI (non-ST elevated myocardial infarction) (Acute ~05/2019). [facility] [place] [facility] [place] Palliative care patient (Acute). Pedal edema (Acute). POLST (Physician Orders for Life-Sustaining Treatment) (Chronic). done 08/08/19. Refusal of blood transfusions as patient is Islam (Acute). Renal insufficiency (Chronic). Type II diabetes mellitus with complication, uncontrolled (Acute 05/14/14) PREVIOUS FUNCTIONAL STATUS/SOCIAL/FAMILY SUPPORTS:: Linda lives at home alone her children are grown. She state she has a supportive family. Linda has home health nursing and PT. CURRENT FUNCTIONAL STATUS:: Linda is sitting up in the chair she states she is feeling better. She is about to eat her dinner, she makes good eye contact, CM offfered to contact family to update, Linda states she has already done this. ADVANCE DIRECTIVES:: [facility] on file son is Caesar Bautista Has patient been provided with info about the portal/API?: Yes Did the patient sign up for the portal?: No CODE STATUS:: DNR/DNI INSURANCE COVERAGE / FINANCIAL ISSUES:: Medicare, [employer], financial assistance, CURRENT HOME/COMMUNITY SERVICES/EQUIPMENT:: Home Health halfway and PT PRIMARY CARE PHYSICIAN:: POTENTIAL DISCHARGE NEEDS:: Resumption of home health services nursing and PT ANTICIPATED BARRIERS TO DISCHARGE:: Linda feels that she will need to go to a rehab post surgery do to living alone. TRANSPORTATION:: Pending disposition PLAN:: Linda remains in the ICU her heart rate has improved. She will plan to have the surgical procedure with . Anticipate she will need a short rehab stay and has decided [facility] here only choice, CM did review all options locally however she wants to stay in [place]. CM will continue to assess for ongoing discharge needs and send a referral to [facility] as requested by patient.
--- NOTE | 2019-10-02 10:34 | OCONE_ITS ---
History of Present Illness History of Present Illness Chief Complaint: Right chronic femoral head fracture Narrative: Linda is a pleasant 84-year-old who I have seen both in the emergency department into the office for a chronic right femoral head fracture with resultant right hip malalignment and arthritis. She was planned for surgery upcoming next week. However, during her cardiology consultation, she was found to be in atrial fibrillation with rapid ventricular rate. She does have a significant cardiac history with previous cardioversions and chronic medications. She was also found in the emergency department at the time of the admission to have a clot within the posterior tibial vein despite being on chronic Coumadin. She still reports being asymptomatic except for her right hip pain. Her right hip pain has been progressive and debilitating. She is limited with all ambulation and standing. She is unable to stand erect. She is dependent on a walker and even so still struggles with ambulation. She was admitted to the medicine service for management of her A. fib with RVR. She was placed onto a diltiazem drip which quickly improved her rate. Her troponins were negative. She was noted to be fluid overloaded and was started on Lasix as well. She continues to report pain about the right hip, especially with any motion or standing or walking. She denies new trauma. She denies any chest pain, shortness of breath, cough. Consult Reason Right chronic femoral head fracture Assessment and Plan Assessment and plan (1) Fracture of head of right femur: Status: Chronic Assessment and plan: Linda is an 84-year-old who has a chronic femoral h ead fracture of the right hip. It is unclear when this occurred but she now has chronic changes with loss of the superior portion of the femoral head and notable arthritic change. She has been living with pain for quite some time. She has significant limitation to standing and walking. 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 Unfortunately, while in the oil spot washer office she was noted to be in rapid ventricular rate with atrial fibrillation and was sent to the emergency department and subsequently admitted. I had a long discussion with Dr. Finley, admitting physician, about the situation. It still is a hip fracture, just not recognized early on. Usually, we move quickly with hip fractures to preserve mobility. While the acute period of time after this fracture is passed, I still think is imperative that we correct the deformity to allow Linda to start resuming more normal activities with less pain. From Dr. Finley's perspective, she does have real risk. However, her rapid ventricular rate has improved. 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 She has had negative troponins. She has had an echo which does not perfect and normal, however, is largely unchanged from previous. After discussed this with Dr. Finley she does think that it makes sense to proceed with hip replacement for the main goal of quality of life and pain relief. I had a long discussion with Linda as well about proceeding with a hip replacement during this admission versus waiting as an outpatient. Anne-Marie was quite insistent that the hip get replaced so she may get on the road to recovery and move and stand with much less pain and deformity. I had a long discussion with Linda about a hip replacement. I already had a lengthy discussion with her and her son in the office. I reviewed the risk once more that include bleeding, infection, pain, s tiffness, leg length inequality, fracture, need for repeat procedures, blood clot, cardiopulmonary demise, . Despite these risk, she elects to proceed. She is a Lutheran and refuses blood products. Her INR must get below 1.9. I will use tranexamic acid during the case as well. The plan is for surgery on afternoon. She will be n.p.o. starting at midnight. Qualifiers: Encounter type: initial encounter Fracture type: closed Qualified Code(s): S72.051A - Unspecified fracture of head of right femur, initial encounter for closed fracture Review of Systems All systems reviewed & are unremarkable except as noted in HPI and below [facility] Medical History (Updated 10/03/19 @ 12:20 by Gilma Estrada MD, DC) Arthritis (Acute) ASCVD (arteriosclerotic cardiovascular disease) (Acute 04/22/15) RI with out of hosp cardiac arrest LAD stent, LVEF 35% Atrial fibrillation (Acute 05/27/11) paroxysmal Oct 2009 Carpal tunnel syndrome on both sides (Acute) CHF (congestive heart failure) (Chronic) Chronic low back pain (Chronic) Complementary medicine (Chronic) homeopathic primarily: DNI (do not intubate) (Acute) DNR (do not resuscitate) (Acute) Essential hypertension (Acute 01/04/13) echo 2008 [facility] uncontrolled BP (neg w/u for pheo) Foot drop, left (Acute) GERD (gastroesophageal reflux disease) (Chronic) Hip pain, right (Chronic) Hyperlipidemia (Acute) Hypertensive retinopathy (Acute) Impaired left ventricular function (Acute ~05/2019) [facility] [place]; 35% Low back pain (Acute) Lumbar stenosis (Acute) Mild obstructive sleep apnea (Acute 11/17/15) [facility] NSTEMI (non-ST elevated myocardial infarction) (Acute ~05/2019) [facility] [place] Palliative care patient (Acute) Pedal edema (Acute) POLST (Physician Orders for Life-Sustaining Treatment) (Chronic) 3 on file Refusal of blood transfusions as patient is Lutheran (Acute) Renal insufficiency (Chronic) Type II diabetes mellitus with complication, uncontrolled (Acute 05/14/14) Surgical History History of appendectomy (Chronic) Social History Smoking/Tobacco Use Status: Never Second Hand Exposure: No Alcohol Intake: never Drug use: Never Substance use type: does not use Caregiver/Support person: No Household members: none Housing: house Number of Children: 4 number of grandchildren: 5 Communication Needs: Corrective Lenses Education Level: high school Do you need help understanding health information?: Often current occupation: Retired Pets and animals: Yes Pets and animals: cat(s) and dog(s) Current gender identity: female What is your relationship status?: How often do you talk on the phone with friends or family?: three or more times per week How often do you get together with friends or relatives?: three or more times per week Panel score (0-1 are the most socially isolated patients): 1 What type of physical activity do you participate in: assisted ambulation Duration: < 15 minutes/day Frequency: does not exercise Faviola/Restoration: Lutheran Special faviola needs: Yes (no transfusion) Agree to transfusion: No Seatbelt use: always 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 Getting some HH services. ALso hires [employer] to help with ADLs. Hip pain bad lately; has known fracture, which is old--not sure when she broke her hip. Interested in completing COLST--done today Exam Narrative Exam Narrative: Sitting up in the hospital bed. The right leg is notably shorte r than the left side. There is pain with attempted range of motion of external and internal rotation. Sensation intact light touch over the femoral nerve and lateral femoral cutaneous nerve distributions. The anterior groin and thighs inspected and does not show signs of infection or irritation. Results Last Vital Signs Temp 36.4 C L 10/02/19 08:40 Pulse 106 H 10/02/19 09:51 Resp 15 10/02/19 10:00 BP 121/82 10/02/19 09:51 Pulse Ox 96 10/02/19 10:00 Labs Result diagrams: 10/02/19 06:07 10/03/19 06:18 Labs: Laboratory Results - last 24 hr 10/01/19 10/01/19 10/01/19 13:30 13:30 13:30 WBC 9.55 RBC 4.27 Hgb 12.5 Hct 37.4 MCV 87.6 MCH 29.3 MCHC 33.4 RDW 14.6 Plt Count 210 MPV 12.6 H Immature Gran % 0.2 Neutrophils % 71.1 Lymphocytes % 16.2 Monocytes % 11.3 Eosinophils % 0.9 Basophils % 0.3 Absolute Neutrophils 6.78 H Absolute Lymphocytes 1.55 Absolute Monocytes 1.08 H Absolute Eosinophils 0.09 Absolute Basophils 0.03 PT 29.3 H INR 3.0 H Sodium 130 L Potassium 4.7 Chloride 95 L Carbon Dioxide 26.2 Anion Gap 8.8 BUN 37 H Creatinine 1.78 H Estimated GFR/1.73 m2 27.22 Glucose 215 H Hemoglobin A1c Calcium 9.3 Magnesium 1.7 L Total Bilirubin 0.6 AST 21 ALT 20 Alkaline Phosphatase 77 Troponin I 0.07 NT-Pro-B Natriuret Pep 1785 H Total Protein 7.9 Albumin 3.5 Triglycerides Total Cholesterol LDL Cholesterol, Calc HDL Cholesterol COVID-19 PCR Nasopharyn COVID-19 PCR Ref Test Perform Site 10/01/19 10/01/19 10/01/19 13:30 17:25 17:55 WBC RBC Hgb Hct MCV MCH MCHC RDW Plt Count MPV Immature Gran % Neutrophils % Lymphocytes % Monocytes % Eosinophils % Basophils % Absolute Neutrophils Absolute Lymphocytes Absolute Monocytes Absolute Eosinophils Absolute Basophils PT INR Sodium Potassium Chloride Carbon Dioxide Anion Gap BUN Creatinine Estimated GFR/1.73 m2 Glucose Hemoglobin A1c 7.7 H Calcium Magnesium Total Bilirubin AST ALT Alkaline Phosphatase Troponin I 0.07 NT-Pro-B Natriuret Pep Total Protein Albumin Triglycerides Total Cholesterol LDL Cholesterol, Calc HDL Cholesterol COVID-19 PCR Negative Nasopharyn COVID-19 PCR Not Applicable Ref Test Perform Site Drifting [facility] lab 10/01/19 10/02/19 10/02/19 22:21 06:07 06:07 WBC RBC Hgb Hct MCV MCH MCHC RDW Plt Count MPV Immature Gran % Neutrophils % Lymphocytes % Monocytes % Eosinophils % Basophils % Absolute Neutrophils Absolute Lymphocytes Absolute Monocytes Absolute Eosinophils Absolute Basophils PT 28.7 H INR 2.9 H Sodium 131 L Potassium 4.0 Chloride 95 L Carbon Dioxide 29.5 Anion Gap 6.5 BUN 36 H Creatinine 1.73 H Estimated GFR/1.73 m2 28.13 Glucose 77 D Hemoglobin A1c Calcium 9.1 Magnesium 2.0 Total Bilirubin AST ALT Alkaline Phosphatase Troponin I 0.06 0.06 NT-Pro-B Natriuret Pep Total Protein Albumin Triglycerides 62 Total Cholesterol 86 LDL Cholesterol, Calc 38 HDL Cholesterol 36 L COVID-19 PCR Nasopharyn COVID-19 PCR Ref Test Perform Site 10/02/19 06:07 WBC 8.06 RBC 4.00 Hgb 11.6 L Hct 34.9 L MCV 87.3 MCH 29.0 MCHC 33.2 RDW 14.4 Plt Count 183 MPV 13.2 H Immature Gran % 0.1 Neutrophils % 57.7 Lymphocytes % 26.2 Monocytes % 13.4 Eosinophils % 2.1 Basophils % 0.5 Absolute Neutrophils 4.65 Absolute Lymphocytes 2.11 Absolute Monocytes 1.08 H Absolute Eosinophils 0.17 Absolute Basophils 0.04 PT INR Sodium Potassium Chloride Carbon Dioxide Anion Gap BUN Creatinine Estimated GFR/1.73 m2 Glucose Hemoglobin A1c Calcium Magnesium Total Bilirubin AST ALT Alkaline Phosphatase Troponin I NT-Pro-B Natriuret Pep Total Protein Albumin Triglycerides Total Cholesterol LDL Cholesterol, Calc HDL Cholesterol COVID-19 PCR Nasopharyn COVID-19 PCR Ref Test Perform Site Imaging Imaging Studies: Previous x-rays of the right hip and pelvis demonstrate a chronic femoral head fracture with resorption of the femoral head and superior lateral migration with notable arthritic change. No other suspicious lesions.
[2019-10-02] MEDS: Insulin Aspart 300 UNITS/3 ML PEN SC ×3 (12:35→22:25)
[2019-10-02] MEDS: Metoprolol 50 MG TAB PO ×2 (12:36→20:29)
--- NOTE | 2019-10-02 12:51 | W.INDIABCONS ---
Date of service: 10/02/19 Time of Service: 12:51 Diabetes Inpatient Consult DESCRIPTION/ASSESSMENT: 84 year old female admitted with Afib, CHF, pedal edema awaiting surgery on 10/04/19 for chronic femoral neck fracture. PMH: Dm2. home meds include lantus 18 u HS, ss novolog. BMI 29 indicates that she is overweight. Met with Linda today to discuss her insulin dep. diabetes and home management. She reports that she has had over 20 years experience with her diabetes and does not want more information. I reviewed with her that her A1C of 7.7% (10/01/19) indicates mildly elevated blood sugars. However, it has reduced in last 2 months as used to be 8.1% in july 2019. Linda reports well balanced meals however and checking her BS multiple times daily, however, has not been limiting her salt intake. Educated Linda on importance of following low salt diet to better manage her CHF. Fasting sugars have ranged from 98-208 mg/dl since admit. She receives meals on wheels with 7 meals weekly. Following Low Sodium Diet with excellent intake since admit. Skin intact, dentition adequate and current diet texture well tolerated. No swallowing issues reported. Estimated Needs: 6650-2930 kcal, 65-78 g protein, 1900 ml fluid. Linda is currently meeting nutrient and fluid needs and has adequate knowledge about how to manage her DM at home. She needs further education on how to follow low sodium diet. INTERVENTION: Provided education on DM including Hyper/hypoglycemia s/s with action plan for each scenario. Definition and types of CHO with examples, CHO counting, DASH diet materials, DM meal planning and label reading literature. Provided a blood sugar and food record chart and materials to reiterate CHO counting techniques. Reviewed desirable BG levels with patient with food choices and portions for optimal outcomes. Provided contact information for this RD and encouraged to call with any f/u questions r/t to DM self management. CDM from [employer] has been helping to count CHO's and achieve intake of ~65g/CHO per meal period. Provided Linda with Low sodium education with emphasis on DASH diet with increased amounts of non starch vegetables, lean protein and complex carbs. Provided Low Sodium pamphlet from [facility]. PLAN: Continue current diet plan, follow up in outpatient setting if needs more diet education for management of DM and CHF Time Spent in Nutritional Counseling and Treatment: 20 min spent face to face
--- NOTE | 2019-10-02 14:01 | PHA.REVIEW ---
Pharmacy Admission Review - Admission Clinical Review (Last Reviewed 10/01/19 @ 13:40 by Stacie Moore MD) Discharge planning issues (Acute) DVT prophylaxis (Acute) Acute deep vein thrombosis (DVT) of right lower extremity (Acute) Acute on chronic diastolic CHF (congestive heart failure), NYHA class 1 (Acute) Paroxysmal atrial fibrillation with RVR (Acute) Tetanus Vaccines and Toxoid Allergy (Intermediate, Verified 10/01/19 13:14) diltiazem Adverse Reaction (Severe, Verified 10/01/19 13:14) tired, hand pain doxycycline Adverse Reaction (Severe, Verified 10/01/19 13:14) GI UPSET verapamil Adverse Reaction (Severe, Verified 10/01/19 13:14) dizziness doxazosin mesylate [From Cardura] Adverse Reaction (Intermediate, Verified 10/01/19 13:14) muscle aches atenolol Adverse Reaction (Mild, Verified 10/01/19 13:14) leg pain Height 5 ft Weight 69 kg - Renal Dosing Renal Dosing: BUN 36 mg/dL (7-18) H 10/02/19 06:07 Creatinine 1.73 mg/dL (0.55-1.02) H 10/02/19 06:07 Medications needing adjustments: Reviewed (Crcl ~17.6 mL/min current meds okay) - Anticoagulation Anticoagulation: Hgb 11.6 g/dL (12.0-15.5) L 10/02/19 06:07 Hct 34.9 % (36.0-46.0) L 10/02/19 06:07 Plt Count 183 x1000/uL (130-400) 10/02/19 06:07 INR 2.9 (0.9-1.1) H 10/02/19 06:07 Creatinine 1.73 mg/dL (0.55-1.02) H 10/02/19 06:07 DVT Prohphylaxis: N/A (watch for start of lovenox or heparin once INR is less than 2.0 per H&P) Therapeutic Anticoagulation: Reviewed Medications: Warfarin (on hold, waiting for INR to get below 1.9 for surgery. Watch for potential start of different anticoagulant postop) - Opiate Usage Evaluate Pain Scale/Pains Meds: Reviewed Scheduled Bowel Reg ordered if on Opiates?: No (PRN med order) - Relevant Labs Sodium 131 mmol/L (136-145) L 10/02/19 06:07 Potassium 4.0 mmol/L (3.5-5.1) 10/02/19 06:07 Chloride 95 mmol/L (98-107) L 10/02/19 06:07 Magnesium 2.0 mg/dL (1.8-2.4) 10/02/19 06:07 Electrolytes, C-Reactive P, ESR: Reviewed (watch sodium) - DM Control DM Control: Glucose 77 mg/dL (74-106) D 10/02/19 06:07 Hemoglobin A1c 7.7 % (3.8-5.6) H 10/01/19 13:30 Finger Stick Blood Glucose 248 Finger Stick Blood Glucose 248 Finger Stick Blood Glucose 98 Finger Stick Blood Glucose 98 Insulin Dosing: Intervened (will mention to MD to see if want to adjust insulin dosing) - Heart Failure/MO Heart Failure/MO: Troponin I 0.06 ng/mL (<0.06) 10/02/19 06:07 NT-Pro-B Natriuret Pep 1785 pg/mL (<300) H 10/01/19 13:30 EF%, CRUZ's, B-Blockers, Diuretics: Reviewed - BP Control BP Control: Blood Pressure 121/79 Blood Pressure 108/73 Blood Pressure 121/82 Blood Pressure 130/77 Blood Pressure 125/65 If elevated: N/A - Qtc Review If Elevated: N/A (QTc 468) - IV to PO Switch IV Medications: N/A - Home Meds Home Med List reviewed: Reviewed Relevent Home Meds Not ordered & why?: amlodpine, ascorbic acid, atorvastatin, chromium, omega-3, spironolactone, tresiba (has insulin glargine ordered), warfarin (on hold/may be changed to other anticoagulant postop) - Current meds Current Medication Order Review: Reviewed - Comments Comments/Follow Ups: watch INR, SCr, BG, HR, BP, sodium, for need of BM meds, and for med changes (anticoagulant, any QT prolonging meds, insulin adjustments)
--- NOTE | 2019-10-02 14:10 | PGE_ITS ---
Date of Service Date of service: 10/02/19 Time of Service: 14:10 Assessment and Plan Assessment and plan (1) Paroxysmal atrial fibrillation with RVR: Status: Acute Assessment and plan: Transitioned to PO cardizem, but does seem to be requiring both cardizem and metoprolol. I have reintroduced oral metoprolol, but the short acting version with holding parameters. Would keep in ICU for now. Anticoagulation would ideally be transitioned to a DOAC as developed a DVT on coumadin. For now, INR still therapeutic - hold all anticoagulation. (2) Acute on chronic diastolic CHF (congestive heart failure), NYHA class 1: Status: Acute Assessment and plan: Continue IV lasix. (3) Acute deep vein thrombosis (DVT) of right lower extremity: Status: Acute Assessment and plan: Distal (right posterior tibial vein), unclear if it is acute or chronic. Discussed with Dr Stovall - based on the location of the DVT, it is not a contraindication to surgery as risk to embolization low, with which I agree. Plant to convert to either lovenox or heparin gtt depending on GFR once INR is <2.0. On discharge, would benefit from a DOAC. (4) Fracture of head of right femur: Status: Chronic Assessment and plan: We will attempt to have the patient have her surgery here on this admission. Qualifiers: Encounter type: initial encounter Fracture type: closed Qualified Code(s): S72.051A - Unspecified fracture of head of right femur, initial encounter for closed fracture (5) DVT prophylaxis: Status: Acute Assessment and plan: Therapeutic on coumadin at this time. (6) Discharge planning issues: Status: Acute Assessment and plan: DNR/DNI Keep in ICU for now. Palliative consulted. Subjective Subjective Interval history since last seen: Ms Bautista has no symptoms such as dizziness, chest pain, palpitations, shortness of breath, or nausea whatsoever. She did feel like she gagged on a bite with her lunch, but she is not sure why, and she is not nauseated. She was transitioned off of IV cardizem to PO cardizem today. Since then, did have an episode of tachycardia up to 150's when sat up in a chair, but then decreased down to 120's. This seems to be better since taking PO metoprolol - now HR down to 90's. Exam Narrative Exam Narrative: General: Very pleasant elderly female, A&Ox3, sitting up in bed, no distress. HEENT: EOMI, MMM Cardiovascular: irregularly irregular rhythm, no m/r/g, HR in the 's during my exam Lungs: CTAB Gastrointestinal: soft,nontender, nondistended Extremities: 3+ BLE edema, symmetric, but improved from yesterday with wrinkles now appearing, no c/c, 1+ bilateral pedal pulses Objective Objective Clinical Data: Abnormal lab results 10/01/19 10/02/19 10/02/19 Range/Units 13:30 06:07 06:07 Hgb (12.0-15.5) g/dL Hct (36.0-46.0) % MPV (8.0-11.0) fL Absolute Monocytes (0.11-0.7) k/cumm PT 28.7 H (9.3-11.0) sec INR 2.9 H (0.9-1.1) Sodium 131 L (136-145) mmol/L Chloride 95 L (98-107) mmol/L BUN 36 H (7-18) mg/dL Creatinine 1.73 H (0.55-1.02) mg/dL Hemoglobin A1c 7.7 H (3.8-5.6) % HDL Cholesterol 36 L (40-60) mg/dL 10/02/19 Range/Units 06:07 Hgb 11.6 L (12.0-15.5) g/dL Hct 34.9 L (36.0-46.0) % MPV 13.2 H (8.0-11.0) fL Absolute Monocytes 1.08 H (0.11-0.7) k/cumm PT (9.3-11.0) sec INR (0.9-1.1) Sodium (136-145) mmol/L Chloride (98-107) mmol/L BUN (7-18) mg/dL Creatinine (0.55-1.02) mg/dL Hemoglobin A1c (3.8-5.6) % HDL Cholesterol (40-60) mg/dL Vital Signs Temperature 36.4 C L 10/02/19 11:27 Temperature Source Temporal Artery Scan 10/02/19 11:27 Pulse 86 10/02/19 12:07 Pulse 110 H 10/02/19 12:50 Respiratory Rate 21 10/02/19 12:50 Respiratory Effort Non-Labored 10/02/19 11:27 Respiratory Depth Normal 10/02/19 11:27 Respiratory Pattern Normal 10/02/19 11:27 Blood Pressure 121/79 10/02/19 12:07 Blood Pressure Mean 90 10/02/19 12:07 Blood Pressure Position Supine 10/02/19 11:27 Pulse Oximetry 97 10/02/19 11:40 Oxygen Delivery Method Room Air 10/01/19 18:30 Oxygen Flow Rate 0 10/01/19 18:30 Pain Level 6 10/02/19 11:27 Intake & Output 10/01/19 10/02/19 10/02/19 23:59 11:59 23:59 Intake Total 243.917 / 343.917 762.083 / 762.083 Output Total 1300 / 1700 1050 / 1900 850 / 1900 Balance -1056.083 / -1356.083 -287.917 / -1137.917 -850 / -1137.917 Weight 70 kg 69 kg Intake: IV 243.917 / 343.917 285.083 / 285.083 Oral 477 / 477 Output: Urine 1300 / 1700 1050 / 1900 850 / 1900 Other: Urine Color Pale Yellow Yellow Yellow Urine Appearance Clear Clear Clear Comment Hays inserted @ 202410/01/2019. H[place] in place and draining Laboratory Results WBC 8.06 k/cumm (4.4-10.8) 10/02/19 06:07 RBC 4.00 m/cumm (4.00-5.20) 10/02/19 06:07 Hgb 11.6 g/dL (12.0-15.5) L 10/02/19 06:07 Hct 34.9 % (36.0-46.0) L 10/02/19 06:07 MCV 87.3 fL (80-95) 10/02/19 06:07 MCH 29.0 pg (27.0-33.0) 10/02/19 06:07 MCHC 33.2 g/dL (32.0-36.0) 10/02/19 06:07 RDW 14.4 % (11.7-14.6) 10/02/19 06:07 Plt Count 183 x1000/uL (130-400) 10/02/19 06:07 MPV 13.2 fL (8.0-11.0) H 10/02/19 06:07 Immature Gran % 0.1 % 10/02/19 06:07 Neutrophils % 57.7 10/02/19 06:07 Lymphocytes % 26.2 10/02/19 06:07 Monocytes % 13.4 10/02/19 06:07 Eosinophils % 2.1 10/02/19 06:07 Basophils % 0.5 10/02/19 06:07 Absolute Neutrophils 4.65 k/cumm (1.2-6.7) 10/02/19 06:07 Absolute Lymphocytes 2.11 k/cumm (1.2-3.4) 10/02/19 06:07 Absolute Monocytes 1.08 k/cumm (0.11-0.7) H 10/02/19 06:07 Absolute Eosinophils 0.17 k/cumm (0.0-0.7) 10/02/19 06:07 Absolute Basophils 0.04 k/cumm (0.0-0.2) 10/02/19 06:07 PT 28.7 sec (9.3-11.0) H 10/02/19 06:07 INR 2.9 (0.9-1.1) H 10/02/19 06:07 Sodium 131 mmol/L (136-145) L 10/02/19 06:07 Potassium 4.0 mmol/L (3.5-5.1) 10/02/19 06:07 Chloride 95 mmol/L (98-107) L 10/02/19 06:07 Carbon Dioxide 29.5 mmol/L (21.0-32.0) 10/02/19 06:07 Anion Gap 6.5 mmol/L (3-11) 10/02/19 06:07 BUN 36 mg/dL (7-18) H 10/02/19 06:07 Creatinine 1.73 mg/dL (0.55-1.02) H 10/02/19 06:07 Estimated GFR/1.73 m2 28.13 (mL/min/1.73m2) 10/02/19 06:07 Glucose 77 mg/dL (74-106) D 10/02/19 06:07 Hemoglobin A1c 7.7 % (3.8-5.6) H 10/01/19 13:30 Calcium 9.1 mg/dL (8.5-10.1) 10/02/19 06:07 Magnesium 2.0 mg/dL (1.8-2.4) 10/02/19 06:07 Total Bilirubin 0.6 mg/dL (0.2-1.0) 10/01/19 13:30 AST 21 U/L (15-37) 10/01/19 13:30 ALT 20 U/L (14-59) 10/01/19 13:30 Alkaline Phosphatase 77 U/L (46-116) 10/01/19 13:30 Troponin I 0.06 ng/mL (<0.06) 10/02/19 06:07 NT-Pro-B Natriuret Pep 1785 pg/mL (<300) H 10/01/19 13:30 Total Protein 7.9 g/dL (6.4-8.2) 10/01/19 13:30 Albumin 3.5 g/dL (3.4-5.0) 10/01/19 13:30 Triglycerides 62 mg/dL (<150) 10/02/19 06:07 Total Cholesterol 86 mg/dL (<200) 10/02/19 06:07 LDL Cholesterol, Calc 38 mg/dL (<100) 10/02/19 06:07 HDL Cholesterol 36 mg/dL (40-60) L 10/02/19 06:07 COVID-19 PCR Negative (Negative) 10/01/19 17:55 Nasopharyn COVID-19 PCR Not Applicable 10/01/19 17:55 Ref Test Perform Site [facility] lab 10/01/19 17:55
--- NOTE | 2019-10-02 14:16 | CHAPLAIN ---
Linda was resting in bed when I visited. She is a [employer], and she said her sister or another family member has likely told leaders at the [facility] that she is here. I explained my role and offered support.
[2019-10-02] MEDS: Milk of Magnesia 30 ML CUP PO (18:07)
[2019-10-02] MEDS: Docusate Sodium 100 MG CAP PO (18:07)
[2019-10-02] MEDS: Insulin Glargine 300 UNITS/3 ML PEN 12 UNITS SC (22:23)
[2019-10-03] VITALS (97 sets, daily range): BP systolic 99–127; BP diastolic 57–83; PULSE 47–110; RESP 8–37; TEMP 35.4–36.5; O2SAT 92–97
[2019-10-03] MEDS: dilTIAZem 30 MG TAB PO ×3 (01:06→21:39)
[2019-10-03] MEDS: Metoprolol 50 MG TAB PO ×3 (03:49→21:39)
[2019-10-03 07:30] LABS: INR 1.8 (0.9-1.1); Prothrombin Time 18.1 sec (9.3-11.0)
[2019-10-03 07:37] LABS: Anion Gap 7.6 mmol/L (3-11); BUN 37 mg/dL (7-18); CO2 29.4 mmol/L (21.0-32.0); CREATININE 1.74 mg/dL (0.55-1.02); Calcium 9.2 mg/dL (8.5-10.1); Chloride 91 mmol/L (98-107); Estimated GFR 27.94 (mL/min/1.73m2); Glucose 144 mg/dL (74-106); Magnesium 2.2 mg/dL (1.8-2.4); Potassium 4.4 mmol/L (3.5-5.1); Sodium 128 mmol/L (136-145)
--- NOTE | 2019-10-03 08:27 | W.PM.PROGNOT ---
Date of Service Date of service: 10/03/19 Time of Service: 12:15 Assessment and Plan Assessment and plan (1) Paroxysmal atrial fibrillation with RVR: Status: Acute Assessment and plan: Doing well on current doses of cardizem and metoprolol. Anticoagulation would ideally be transitioned to a DOAC as developed a DVT on coumadin, once is safe to do so per orthopedic surgery. Will bridge with heparin gtt, which is to be held prior to surgery. (2) Acute on chronic diastolic CHF (congestive heart failure), NYHA class 1: Status: Acute Assessment and plan: Continue IV lasix. (3) Acute deep vein thrombosis (DVT) of right lower extremity: Status: Acute Assessment and plan: Distal (right posterior tibial vein), unclear if it is acute or chronic. Discussed with Dr Stovall - based on the location of the DVT, it is not a contraindication to surgery as risk to embolization low, with which I agree. Will bridge with heparin gtt. On discharge, would benefit from a DOAC. (4) Fracture of head of right femur: Status: Chronic Assessment and plan: Patient is relatively high cardiac risk for this moderate intrinsic cardiac risk procedure (does have anteroapical hypokinesis); however, this is likely as safe as it could be for this patient to have her procedure done. She would like to have it done. She is DNR/DNI, and I feel that benefits of getting a right total hip replacement would outweigh her risks given her current quality of life. Qualifiers: Encounter type: initial encounter Fracture type: closed Qualified Code(s): S72.051A - Unspecified fracture of head of right femur, initial encounter for closed fracture (5) DVT prophylaxis: Status: Acute Assessment and plan: Bridging with therapeutic heparin gtt. (6) Discharge planning issues: Status: Acute Assessment and plan: DNR/DNI Transfer out of ICU to [place] with tele. Subjective Subjective Interval history since last seen: Nursing reports that the patient had fecal impaction this morning, which resolved after 1 dose of fleets enema. She reports the same pain in her hip. Denies dizziness, chest pain, shortness of breath. She is planned to undergo her hip surgery tomorrow. Afib 70-80 at rest, 94 with activity. BP 112/71. Was able to receive all of her doses of metoprolol. Edema better. Exam Narrative Exam Narrative: General: Very pleasant elderly female, A&Ox3, in bed, does appear slightly uncomfortable HEENT: EOMI, MMM Cardiovascular: irregularly irregular rhythm, no m/r/g, Lungs: CTAB Gastrointestinal: soft,nontender, nondistended Extremities: 2+ BLE edema, symmetric, with more wrinkling than yesterday, no c/c, 1+ bilateral pedal pulses Objective Objective Clinical Data: Abnormal lab results 10/03/19 10/03/19 Range/Units 06:18 06:18 PT 18.1 H D (9.3-11.0) sec INR 1.8 H D (0.9-1.1) Sodium 128 L (136-145) mmol/L Chloride 91 L (98-107) mmol/L BUN 37 H (7-18) mg/dL Creatinine 1.74 H (0.55-1.02) mg/dL Glucose 144 H (74-106) mg/dL Vital Signs Temperature 36.3 C L 10/03/19 03:45 Temperature Source Temporal Artery Scan 10/03/19 03:45 Pulse 71 10/03/19 05:01 Pulse 84 10/03/19 05:50 Respiratory Rate 18 10/03/19 05:50 Respiratory Effort 10/03/19 03:45 Respiratory Depth Normal 10/03/19 03:45 Respiratory Pattern Normal 10/03/19 03:45 Blood Pressure 103/57 L 10/03/19 05:01 Blood Pressure Mean 67 10/03/19 05:01 Blood Pressure Position Supine 10/03/19 03:45 Pulse Oximetry 92 L 10/03/19 05:50 Oxygen Delivery Method Room Air 10/03/19 03:45 Oxygen Flow Rate 0 10/03/19 03:45 Pain Level 0 10/03/19 03:45 Intake & Output 10/02/19 10/02/19 10/03/19 11:59 23:59 11:59 Intake Total 767.000 / 1498.917 731.917 / 1498.917 200 / 200 Output Total 1050 / 3000 1950 / 3000 700 / 700 Balance -283.000 / -1501.083 -1218.083 / -1501.083 -500 / -500 Weight 69 kg Intake: IV 290.000 / 294.917 4.917 / 294.917 Oral 477 / 1204 727 / 1204 200 / 200 Output: Urine 1050 / 3000 1950 / 3000 700 / 700 Other: Urine Color Yellow Pale Pale Yellow Yellow Urine Appearance Clear Clear Clear Comment Hays in place and draining Hays in place and draining very clear, light colored yellow urine Hays in place continues to drain clear, light colored yellow urine Laboratory Results WBC 8.06 k/cumm (4.4-10.8) 10/02/19 06:07 RBC 4.00 m/cumm (4.00-5.20) 10/02/19 06:07 Hgb 11.6 g/dL (12.0-15.5) L 10/02/19 06:07 Hct 34.9 % (36.0-46.0) L 10/02/19 06:07 MCV 87.3 fL (80-95) 10/02/19 06:07 MCH 29.0 pg (27.0-33.0) 10/02/19 06:07 MCHC 33.2 g/dL (32.0-36.0) 10/02/19 06:07 RDW 14.4 % (11.7-14.6) 10/02/19 06:07 Plt Count 183 x1000/uL (130-400) 10/02/19 06:07 MPV 13.2 fL (8.0-11.0) H 10/02/19 06:07 Immature Gran % 0.1 % 10/02/19 06:07 Neutrophils % 57.7 10/02/19 06:07 Lymphocytes % 26.2 10/02/19 06:07 Monocytes % 13.4 10/02/19 06:07 Eosinophils % 2.1 10/02/19 06:07 Basophils % 0.5 10/02/19 06:07 Absolute Neutrophils 4.65 k/cumm (1.2-6.7) 10/02/19 06:07 Absolute Lymphocytes 2.11 k/cumm (1.2-3.4) 10/02/19 06:07 Absolute Monocytes 1.08 k/cumm (0.11-0.7) H 10/02/19 06:07 Absolute Eosinophils 0.17 k/cumm (0.0-0.7) 10/02/19 06:07 Absolute Basophils 0.04 k/cumm (0.0-0.2) 10/02/19 06:07 PT 18.1 sec (9.3-11.0) H D 10/03/19 06:18 INR 1.8 (0.9-1.1) H D 10/03/19 06:18 Sodium 128 mmol/L (136-145) L 10/03/19 06:18 Potassium 4.4 mmol/L (3.5-5.1) 10/03/19 06:18 Chloride 91 mmol/L (98-107) L 10/03/19 06:18 Carbon Dioxide 29.4 mmol/L (21.0-32.0) 10/03/19 06:18 Anion Gap 7.6 mmol/L (3-11) 10/03/19 06:18 BUN 37 mg/dL (7-18) H 10/03/19 06:18 Creatinine 1.74 mg/dL (0.55-1.02) H 10/03/19 06:18 Estimated GFR/1.73 m2 27.94 (mL/min/1.73m2) 10/03/19 06:18 Glucose 144 mg/dL (74-106) H 10/03/19 06:18 Hemoglobin A1c 7.7 % (3.8-5.6) H 10/01/19 13:30 Calcium 9.2 mg/dL (8.5-10.1) 10/03/19 06:18 Magnesium 2.2 mg/dL (1.8-2.4) 10/03/19 06:18 Total Bilirubin 0.6 mg/dL (0.2-1.0) 10/01/19 13:30 AST 21 U/L (15-37) 10/01/19 13:30 ALT 20 U/L (14-59) 10/01/19 13:30 Alkaline Phosphatase 77 U/L (46-116) 10/01/19 13:30 Troponin I 0.06 ng/mL (<0.06) 10/02/19 06:07 NT-Pro-B Natriuret Pep 1785 pg/mL (<300) H 10/01/19 13:30 Total Protein 7.9 g/dL (6.4-8.2) 10/01/19 13:30 Albumin 3.5 g/dL (3.4-5.0) 10/01/19 13:30 Triglycerides 62 mg/dL (<150) 10/02/19 06:07 Total Cholesterol 86 mg/dL (<200) 10/02/19 06:07 LDL Cholesterol, Calc 38 mg/dL (<100) 10/02/19 06:07 HDL Cholesterol 36 mg/dL (40-60) L 10/02/19 06:07 COVID-19 PCR Negative (Negative) 10/01/19 17:55 Nasopharyn COVID-19 PCR Not Applicable 10/01/19 17:55 Ref Test Perform Site [place] [facility] 10/01/19 17:55
[2019-10-03] MEDS: Aspirin E.C. 81 MG TABEC PO (08:41)
[2019-10-03] MEDS: Insulin Aspart 300 UNITS/3 ML PEN SC ×4 (08:41→21:37)
[2019-10-03] MEDS: Furosemide 40 MG/4 ML VIAL IVP ×2 (08:41→17:28)
[2019-10-03] MEDS: Pantoprazole 40 MG TABCR PO (08:41)
[2019-10-03] MEDS: Multivitamin TAB 1 TAB PO (08:41)
[2019-10-03] MEDS: fentaNYL 25 MCG PATCH TD (08:49)
[2019-10-03] MEDS: Acetaminophen 325 MG TAB PO ×2 (08:52→14:35)
--- NOTE | 2019-10-03 09:23 | CMPROGNOTE_ITS ---
- If Service Date Differs Date of service: 10/03/19 Time of Service: 09:23 Care Management Progress Note S/O: Linda remains inpatient today she will transition to medical surgical inpatient today. She will have surgical repair on for the right hip. Her heart rate is better controlled. She has agreed to a referral to [facility] which is her first choice and her second is the [facility]. met with her today and completed her COLST she remains a DNR/DNI. A:Rapid afib, CHF, history of fracture of the right femur to be repaired. P: Linda will have the right femur repaired on 10/04/2019 anticipate she will need short term rehab she has agreed to referrals [facility]. Transportation pending disposition. CM to continue to assess for discharge needs and coordinate disposition.
[2019-10-03] MEDS: Milk of Magnesia 30 ML CUP PO (09:58)
[2019-10-03] MEDS: Bisacodyl 10 MG SUPP (10:00)
[2019-10-03] MEDS: Bisacodyl 10 MG SUPP PR (10:05)
--- NOTE | 2019-10-03 12:14 | PCNE_ITS ---
Date of service: 10/03/19 Time of Service: 06:15 History of Present Illness Narrative: Linda is an 84-year-old woman with history of congestive heart failure, diabetes, and femoral fracture. She was admitted because of rapid A. fib and CHF. The plan is for her to get her hip repaired while inpatient, tentatively scheduled for tomorrow. I was asked to meet with Linda to help define goals of care and discharge. Linda is normally a patient of Dr. Montgomery, Dr. Weathers is on vacation and I am seeing her in her absence. Linda is a ilana 84-year-old woman who states that she is feeling much much better. She anticipates that she will need to go to a rehab after surgery as she lives alone. She is a little anxious about the upcoming surgery but will be glad when it is over. She is hoping that her pain is less. Consults Consult date: 10/03/19 Requesting physician: Cristin Finley Assessment and Plan Assessment and plan (1) Acute on chronic diastolic CHF (congestive heart failure), NYHA class 1: Status: Acute (2) Paroxysmal atrial fibrillation with RVR: Status: Acute (3) Pedal edema: Status: Acute (4) Hip pain, right: Status: Chronic (5) Palliative care patient: Status: Acute Assessment and plan: She is regularly a palliative care patient of Dr. Anne-Marie Montgomery. I am seeing her in her absence. Dr. Weathers will take over when she returns from vacation We did complete a CO LST form. Unfortunately staff had told me that it was not done. She actually has 2 copies and is been twice done twice before. They all are in agreement DNR/DNI. We talked about her anxiety regarding the surgery. She just mostly wants it to be done. She is feeling better regarding her CHF and her heart rate is better controlled. She understands that she will need to go to rehab once she completes her hospital stay. She plans to go home as soon as possible. Thank you very much for this consult Review of Systems Narrative: She states today that her shortness of breath is improved, she has no chest pain, she does have pain in her right hip but as long as she does not move it it is fine. She does not have any headaches. She is tired from all of the recent events. [facility] Medical History Arthritis (Acute) ASCVD (arteriosclerotic cardiovascular disease) (Acute 04/22/15) [place] with out of hosp cardiac arrest LAD stent, LVEF 35% Atrial fibrillation (Acute 05/27/11) paroxysmal Oct 2009 Carpal tunnel syndrome on both sides (Acute) CHF (congestive heart failure) (Chronic) Chronic low back pain (Chronic) Complementary medicine (Chronic) homeopathic primarily: DNI (do not intubate) (Acute) DNR (do not resuscitate) (Acute) Essential hypertension (Acute 01/04/13) echo 2007 [facility] uncontrolled BP (neg w/u for pheo) Foot drop, left (Acute) GERD (gastroesophageal reflux disease) (Chronic) Hip pain, right (Chronic) Hyperlipidemia (Acute) Hypertensive retinopathy (Acute) Impaired left ventricular function (Acute ~05/2019) [facility] [place] 35% Low back pain (Acute) Lumbar stenosis (Acute) Mild obstructive sleep apnea (Acute 11/17/15) [facility] NSTEMI (non-ST elevated myocardial infarction) (Acute ~05/2019) [facility] [place] Palliative care patient (Acute) Pedal edema (Acute) POLST (Physician Orders for Life-Sustaining Treatment) (Chronic) done 08/08/19 Refusal of blood transfusions as patient is Congregational (Acute) Renal insufficiency (Chronic) Type II diabetes mellitus with complication, uncontrolled (Acute 05/14/14) Social History Smoking/Tobacco Use Status: Never Second Hand Exposure: No Alcohol Intake: never Drug use: Never Substance use type: does not use Caregiver/Support person: No Household members: none Housing: house Number of Children: 4 number of grandchildren: 5 Communication Needs: Corrective Lenses Education Level: high school Do you need help understanding health information?: Often current occupation: Retired Pets and animals: Yes Pets and animals: cat(s) and dog(s) Current gender identity: female What is your relationship status?: How often do you talk on the phone with friends or family?: three or more times per week How often do you get together with friends or relatives?: three or more times per week Panel score (0-1 are the most socially isolated patients): 1 What type of physical activity do you participate in: assisted ambulation Duration: < 15 minutes/day Frequency: does not exercise Faviola/Mandaen: Congregational Special faviola needs: Yes (no transfusion) Agree to transfusion: No Seatbelt use: always Drive intox or ride w/intox bus driver: No Do you feel safe at home: Yes Do you feel safe in your relationship?: Yes Additional Social history: Lives alone but sons and their spouses check in regularly. Getting some HH services. ALso hires [employer] to help with ADLs. Hip pain bad lately; has known fracture, which is old--not sure when she broke her hip. Interested in completing COLST--done today Exam Narrative Exam Narrative: Linda is sitting in bed. She quickly changes position to help me examine her more easily. She is presently rate controlled. She does have a few rales and diminished breath sounds but overall reassuring lung exam. Her belly is soft and nontender. Extremities there is edema in both extremities, her nails have severe onychomycosis. I do not see any open sores. She is smiling and engaging in conversation. Results Last Vital Signs Temp 97.3 F L 10/03/19 03:45 Pulse 71 10/03/19 05:01 Resp 18 10/03/19 05:50 BP 103/57 L 10/03/19 05:01 Pulse Ox 92 L 10/03/19 05:50 Labs Result diagrams: 10/02/19 06:07 10/03/19 06:18 Labs: Laboratory Results - last 24 hr 10/03/19 10/03/19 06:18 06:18 PT 18.1 H D INR 1.8 H D Sodium 128 L Potassium 4.4 Chloride 91 L Carbon Dioxide 29.4 Anion Gap 7.6 BUN 37 H Creatinine 1.74 H Estimated GFR/1.73 m2 27.94 Glucose 144 H Calcium 9.2 Magnesium 2.2
[2019-10-03 14:03] LABS: Bilirubin Small (Negative); Blood Large (Negative); Clarity Cloudy (Clear); Glucose Negative (Negative); Ketones Negative (Negative); Leukocyte Esterase Large (Negative); Nitrite Positive (Negative); Urobilinogen 0.2 EU/dL (Up TO 0.2)
[2019-10-03 14:13] LABS: C & S Indicated? Color Interference
[2019-10-03 14:28] LABS: PTT Activated 28.5 sec (21.0-31.4)
[2019-10-03] MEDS: Docusate Sodium 100 MG CAP PO (21:39)
[2019-10-04] VITALS (21 sets, daily range): BP systolic 97–121; BP diastolic 46–75; PULSE 50–112; RESP 14–28; TEMP 35.3–36.8; O2SAT 96–100
[2019-10-04] MEDS: dilTIAZem 30 MG TAB PO ×3 (02:56→19:56)
[2019-10-04 05:41] LABS: Abs Immature Grans 0.01 k/cumm (0.0-0.09); Absolute Basophil Count 0.03 k/cumm (0.0-0.2); Absolute Eosinophil Count 0.22 k/cumm (0.0-0.7); Absolute Lymphocyte Count 2.12 k/cumm (1.2-3.4); Absolute Monocyte Count 1.21 k/cumm (0.11-0.7); Absolute Neutrophil Count 5.12 k/cumm (1.2-6.7); Basophils % 0.3; Eosinophils % 2.5; HGB 11.6 g/dL (12.0-15.5); Immature Grans % 0.1 %; Lymphocytes % 24.3; Mean Corp. HGB Concentration 34.1 g/dL (32.0-36.0); Mean Corpuscular Hemoglobin 29.4 pg (27.0-33.0); Mean Corpuscular Volume 86.3 fL (80-95); Mean Platelet Volume 13.1 fL (8.0-11.0); Monocytes % 13.9; Neutrophils % 58.9; Platelet Count 173 x1000/uL (130-400); RBC 3.94 m/cumm (4.00-5.20); RBC Distribution Width 14.1 % (11.7-14.6); White Blood Cell Count 8.71 k/cumm (4.4-10.8)
[2019-10-04 05:48] LABS: Anion Gap 5.9 mmol/L (3-11); BUN 38 mg/dL (7-18); CO2 29.1 mmol/L (21.0-32.0); Calcium 8.9 mg/dL (8.5-10.1); Chloride 89 mmol/L (98-107); Glucose 197 mg/dL (74-106); Potassium 4.5 mmol/L (3.5-5.1)
[2019-10-04 05:52] LABS: INR 1.5 (0.9-1.1); Prothrombin Time 14.6 sec (9.3-11.0)
[2019-10-04 05:55] LABS: Sodium 124 mmol/L (136-145)
[2019-10-04 06:15] LABS: Vitamin D 25 Total 44.7 ng/ml (30-100)
[2019-10-04] MEDS: Insulin Aspart 300 UNITS/3 ML PEN SC ×4 (07:59→22:01)
[2019-10-04] MEDS: Docusate Sodium 100 MG CAP PO ×2 (08:00→19:56)
[2019-10-04] MEDS: Pantoprazole 40 MG TABCR PO (08:00)
[2019-10-04] MEDS: Metoprolol 50 MG TAB PO ×2 (08:00→19:56)
[2019-10-04] MEDS: Multivitamin TAB 1 TAB PO (08:00)
--- NOTE | 2019-10-04 08:54 | PGE_ITS ---
Date of Service Date of service: 10/04/19 Time of Service: 11:05 Assessment and Plan Assessment and plan (1) Paroxysmal atrial fibrillation with RVR: Status: Acute Assessment and plan: Continue short acting cardizem and metoprolol. Monitor HR post anesthesia as well. Heparin drip on hold preop. Would ideally be transitioned to a DOAC on discharge as developed a DVT on coumadin, once is safe to do so per orthopedic surgery. (2) Acute on chronic diastolic CHF (congestive heart failure), NYHA class 1: Status: Acute Assessment and plan: Hold IV lasix today - resume tomorrow post-op. (3) Acute deep vein thrombosis (DVT) of right lower extremity: Status: Acute Assessment and plan: Distal (right posterior tibial vein), unclear if it is acute or chronic. Discussed with Dr Stovall - based on the location of the DVT, it is not a contraindication to surgery as risk to embolization low, with which I agree. Heparin gtt on hold in light of surgery. On discharge, would benefit from a DOAC. (4) Fracture of head of right femur: Status: Chronic Assessment and plan: For OR today. The patient understands that she is relatively high risk for this moderate intrinsic cardiac risk procedure. She is willing to accept the risks. She is DNR/DNI. Will likely require SNF on discharge. Qualifiers: Encounter type: initial encounter Fracture type: closed Qualified Code(s): S72.051A - Unspecified fracture of head of right femur, initial encounter for closed fracture (5) UTI (urinary tract infection): Status: Acute Assessment and plan: Unclear if this was present on admission. C&S pending. On periop cefazolin - to be transitioned to most likely ceftriaxone post-op (tomorrow). (6) DVT prophylaxis: Status: Acute Assessment and plan: heparin gtt on hold - will communicate with orthopedics as to when it will be ok to resume. (7) Discharge planning issues: Status: Acute Assessment and plan: DNR/DNI Continues to require hospitalization. Anticipate discharge to SNF when medically ready. Subjective Subjective Interval history since last seen: For surgery this afternoon. Denies dizziness, chest pain, shortness of breath, nausea. Pain is controlled. Still has slight hematuria (very little) in the villar. Heparin gtt on hold for surgery - 1-2 pm. NPO. HR 80-90s. Gets into 130s - 150s with ambulation. No bradycardia overnight. Exam Narrative Exam Narrative: General: Very pleasant elderly female, A&Ox3, comfortable in bed HEENT: EOMI, MMM Cardiovascular: irregularly irregular rhythm, no m/r/g, Lungs: CTAB Gastrointestinal: soft,nontender, nondistended Extremities: 2+ BLE edema, significantly better - I can see outline of tibia, wrinkles; no c/c, 1+ bilateral pedal pulses Objective Objective Clinical Data: Abnormal lab results 10/03/19 10/03/19 10/04/19 Range/Units 13:32 23:35 05:25 RBC (4.00-5.20) m/cumm Hgb (12.0-15.5) g/dL Hct (36.0-46.0) % MPV (8.0-11.0) fL Absolute Monocytes (0.11-0.7) k/cumm PT 14.6 H (9.3-11.0) sec INR 1.5 H (0.9-1.1) APTT 125.0 H* D (21.0-31.4) sec Sodium (136-145) mmol/L Chloride (98-107) mmol/L BUN (7-18) mg/dL Creatinine (0.55-1.02) mg/dL Glucose (74-106) mg/dL Urine Protein 100 H (Negative) mg/dL Urine Blood Large H (Negative) Urine Nitrite Positive H (Negative) Urine Bilirubin Small H (Negative) Ur Leukocyte Esterase Large H (Negative) 10/04/19 10/04/19 Range/Units 05:25 05:25 RBC 3.94 L (4.00-5.20) m/cumm Hgb 11.6 L (12.0-15.5) g/dL Hct 34.0 L (36.0-46.0) % MPV 13.1 H (8.0-11.0) fL Absolute Monocytes 1.21 H (0.11-0.7) k/cumm PT (9.3-11.0) sec INR (0.9-1.1) APTT (21.0-31.4) sec Sodium 124 L* (136-145) mmol/L Chloride 89 L (98-107) mmol/L BUN 38 H (7-18) mg/dL Creatinine 1.70 H (0.55-1.02) mg/dL Glucose 197 H (74-106) mg/dL Urine Protein (Negative) mg/dL Urine Blood (Negative) Urine Nitrite (Negative) Urine Bilirubin (Negative) Ur Leukocyte Esterase (Negative) Vital Signs Temperature 36.8 C 10/04/19 06:40 Temperature Source Temporal Artery Scan 10/03/19 21:00 Pulse 154 H 10/04/19 06:40 Pulse Rhythm Irregular 10/04/19 00:22 Pulse 95 H 10/04/19 05:00 Respiratory Rate 22 10/04/19 06:40 Respiratory Effort Non-Labored 10/04/19 00:22 Respiratory Depth Normal 10/04/19 00:22 Respiratory Pattern Normal 10/04/19 00:22 Blood Pressure 134/90 10/04/19 06:40 Blood Pressure Mean 68 10/04/19 00:06 Blood Pressure Position Supine 10/03/19 03:45 Pulse Oximetry 97 10/03/19 15:00 Oxygen Delivery Method Room Air 10/04/19 06:40 Oxygen Flow Rate 0 10/04/19 06:40 Pain Level 0 10/03/19 15:35 Intake & Output 10/03/19 10/03/19 10/04/19 11:59 23:59 11:59 Intake Total 440 / 890 450 / 890 374.233 / 374.233 Output Total 700 / 2850 2150 / 2850 700 / 700 Balance -260 / -1960 -1700 / -1960 -325.767 / -325.767 Weight 68.3 kg Intake: IV 134.233 / 134.233 Oral 440 / 880 440 / 880 240 / 240 Output: Urine 700 / 2550 1850 / 2550 700 / 700 Stool 300 / 300 Other: Urine Color Pale [place] Dark Jessica Yellow Urine Appearance Clear Hematuria Hematuria Comment Villar in place continues to drain clear, light colored yellow urine Stool Occult Blood Negative Stool Size Large Stool Characteristics Hard Soft Brown Liquid Brown Laboratory Results WBC 8.71 k/cumm (4.4-10.8) 10/04/19 05:25 RBC 3.94 m/cumm (4.00-5.20) L 10/04/19 05:25 Hgb 11.6 g/dL (12.0-15.5) L 10/04/19 05:25 Hct 34.0 % (36.0-46.0) L 10/04/19 05:25 MCV 86.3 fL (80-95) 10/04/19 05:25 MCH 29.4 pg (27.0-33.0) 10/04/19 05:25 MCHC 34.1 g/dL (32.0-36.0) 10/04/19 05:25 RDW 14.1 % (11.7-14.6) 10/04/19 05:25 Plt Count 173 x1000/uL (130-400) 10/04/19 05:25 MPV 13.1 fL (8.0-11.0) H 10/04/19 05:25 Immature Gran % 0.1 % 10/04/19 05:25 Neutrophils % 58.9 10/04/19 05:25 Lymphocytes % 24.3 10/04/19 05:25 Monocytes % 13.9 10/04/19 05:25 Eosinophils % 2.5 10/04/19 05:25 Basophils % 0.3 10/04/19 05:25 Absolute Neutrophils 5.12 k/cumm (1.2-6.7) 10/04/19 05:25 Absolute Lymphocytes 2.12 k/cumm (1.2-3.4) 10/04/19 05:25 Absolute Monocytes 1.21 k/cumm (0.11-0.7) H 10/04/19 05:25 Absolute Eosinophils 0.22 k/cumm (0.0-0.7) 10/04/19 05:25 Absolute Basophils 0.03 k/cumm (0.0-0.2) 10/04/19 05:25 PT 14.6 sec (9.3-11.0) H 10/04/19 05:25 INR 1.5 (0.9-1.1) H 10/04/19 05:25 APTT 125.0 sec (21.0-31.4) H* D 10/03/19 23:35 Sodium 124 mmol/L (136-145) L* 10/04/19 05:25 Potassium 4.5 mmol/L (3.5-5.1) 10/04/19 05:25 Chloride 89 mmol/L (98-107) L 10/04/19 05:25 Carbon Dioxide 29.1 mmol/L (21.0-32.0) 10/04/19 05:25 Anion Gap 5.9 mmol/L (3-11) 10/04/19 05:25 BUN 38 mg/dL (7-18) H 10/04/19 05:25 Creatinine 1.70 mg/dL (0.55-1.02) H 10/04/19 05:25 Estimated GFR/1.73 m2 28.70 (mL/min/1.73m2) 10/04/19 05:25 Glucose 197 mg/dL (74-106) H 10/04/19 05:25 Hemoglobin A1c 7.7 % (3.8-5.6) H 10/01/19 13:30 Calcium 8.9 mg/dL (8.5-10.1) 10/04/19 05:25 Magnesium 2.0 mg/dL (1.8-2.4) 10/04/19 05:25 Total Bilirubin 0.6 mg/dL (0.2-1.0) 10/01/19 13:30 AST 21 U/L (15-37) 10/01/19 13:30 ALT 20 U/L (14-59) 10/01/19 13:30 Alkaline Phosphatase 77 U/L (46-116) 10/01/19 13:30 Troponin I 0.06 ng/mL (<0.06) 10/02/19 06:07 NT-Pro-B Natriuret Pep 1785 pg/mL (<300) H 10/01/19 13:30 Total Protein 7.9 g/dL (6.4-8.2) 10/01/19 13:30 Albumin 3.5 g/dL (3.4-5.0) 10/01/19 13:30 Triglycerides 62 mg/dL (<150) 10/02/19 06:07 Total Cholesterol 86 mg/dL (<200) 10/02/19 06:07 LDL Cholesterol, Calc 38 mg/dL (<100) 10/02/19 06:07 HDL Cholesterol 36 mg/dL (40-60) L 10/02/19 06:07 25-OH Vitamin D Total 44.7 ng/ml (30-100) 10/04/19 05:25 Urine Color Red (Yellow) 10/03/19 13:32 Urine Clarity Cloudy (Clear) 10/03/19 13:32 Urine pH 7.0 (5-8) 10/03/19 13:32 Ur Specific Roby 1.020 (1.005-1.025) 10/03/19 13:32 Urine Protein 100 mg/dL (Negative) H 10/03/19 13:32 Urine Ketones Negative mg/dL (Negative) 10/03/19 13:32 Urine Blood Large (Negative) H 10/03/19 13:32 Urine Nitrite Positive (Negative) H 10/03/19 13:32 Urine Bilirubin Small (Negative) H 10/03/19 13:32 Urine Urobilinogen 0.2 EU/dL (Up TO 0.2) 10/03/19 13:32 Ur Leukocyte Esterase Large (Negative) H 10/03/19 13:32 Urine RBC HPF (0-2) 10/03/19 13:32 Urine WBC HPF (0-5) 10/03/19 13:32 Ur Epithelial Cells HPF (Negative) 10/03/19 13:32 Urine Crystals HPF (Negative) 10/03/19 13:32 Urine Bacteria HPF (Negative) 10/03/19 13:32 Urine Casts LPF (Negative) 10/03/19 13:32 Urine Mucus (Negative) 10/03/19 13:32 Ur Culture Indicated? Color interference 10/03/19 13:32 Urine Glucose Negative mg/dL (Negative) 10/03/19 13:32 COVID-19 PCR Negative (Negative) 10/01/19 17:55 Nasopharyn COVID-19 PCR Not Applicable 10/01/19 17:55 Ref Test Perform Site [place] [facility] 10/01/19 17:55
--- NOTE | 2019-10-04 11:37 | PDOC.CMPRO ---
- If Service Date Differs Date of service: 10/04/19 Time of Service: 11:37 Care Management Progress Note S/O: Linda remains inpatient today she will transition to medical surgical inpatient today. She will have surgical repair on for the right hip. Her heart rate is better controlled. She has agreed to a referral to [facility] which is her first choice and her second is the [facility]. met with her today and completed her COLST she remains a DNR/DNI. A:Rapid afib, CHF, history of fracture of the right femur to be repaired. P: Linda will have the right femur repaired on 10/04/2019 anticipate she will need short term rehab she has agreed to referrals to [facility] which have been faxed will await a bed offer. Transportation pending disposition. CM to continue to assess for discharge needs and coordinate disposition.
[2019-10-04] MEDS: Lactated Ringers 1,000 ML 30 ML IV (12:15)
[2019-10-04] MEDS: ceFAZolin 2 GM/50 ML BAG IVPB (12:30)
[2019-10-04] MEDS: Ketorolac 30 MG/ML VIAL (13:01)
[2019-10-04] MEDS: Bupivacaine 0.25% Pres-Free 30 ML VIAL (13:01)
--- NOTE | 2019-10-04 14:08 | DI.RAD_ITS ---
EXAM: XR HIP RT IN OR CLINICAL HISTORY: RIGHT FEMORAL HEAD FRACTURE. TECHNIQUE: 2D and realtime digital imaging was performed. COMPARISON: CR XR HIP RT COMPLETE AP PELVIS from 09/27/2019 FINDINGS: Fluoroscopy was provided in the OR. Hard copy images show placement of a right total hip prosthesis . The components appear well aligned. Please see procedure note for details. Fluoro time: 35.8 sec RADIATION DOSE DELIVERED:
[2019-10-04] MEDS: Insulin REGULAR-Human 100 UNITS/ML UNIT SC (15:10)
[2019-10-04] MEDS: Erythromycin Ophth Oint 3.5 GM TUBE OD (16:51)
--- NOTE | 2019-10-04 17:13 | PT.INNT ---
Date of service: 10/04/19 Time of Service: 17:13 PT Notes Visit Reasons: RAPID AFIB,OLD R HIP FX Patient on hold per nursing due to corneal abrasion. Will attempt consultation tomorrow am.
[2019-10-04] MEDS: Refresh PLUS Eye Drops 0.4ml 1 EACH OU (19:56)
--- NOTE | 2019-10-04 21:08 | ROE_ITS ---
Date of service: 10/04/19 Time of Service: 14:42 Operative Note Operative Note DATE OF PROCEDURE: 10/04/19 PRE-OP DIAGNOSIS: Right Hip Chronic Femoral Head Fracture POST-OP DIAGNOSIS: same PROCEDURE: Right Anterior Total Hip Arthroplasty SURGEON: Ayaan Stovall SAFETY ASSOCIATE: Luli Elder ANESTHESIA: GETA ESTIMATED BLOOD LOSS: 350 PATHOLOGY: none sent COMPLICATIONS: None Patient was transported to: PACU Patient's condition: stable Implants: 1. Depuy Crittenden Acetabular Component, 48mm 2. Depuy Acetabular Liner, [id number] 3. Depuy Corail High Offset Femoral Stem, Size 10 4. Depuy Altrx Ceramic Femoral Head, Size 32+5mm Indications: I have seen Linda in clinic and the ED for symptoms of hip pain from a chronic and missed femoral head fracture, confirmed with radiographic findings. Linda has exhausted nonoperative methods and was having significant limitations in daily function and desired better function and less pain. I discussed the technical details of a hip replacement. I explained the risks of the procedure to include, but not limited to, bleeding, infection, pain, stiff ness, fracture, damage to nerves and vessels, damage to muscles and tendons, loosening, instability, leg length inequality, need for repeat procedure, blood clot and cardiopulmonary demise. During the outpatient workup she was admitted for RVR from atrial fibrillation. After being stabilized, I discussed the case with the medicine team and Linda and we agreed to proceed during this admission with the hip replacement. After this thorough discussion, Linda elected to proceed. Findings: There was a flattened femoral head with thickened synovitis throughout the hip. Procedure Description: Linda was greeted in the preoperative holding area where the correct side was identified and marked. The consent was reviewed with the patient and signed. The history and physical was updated. All questions were answered. Linda was taken back to the operating room. A general anesthetic was administe red. The patient was placed into the supine position on the operating room table. The patient was then positioned onto the ARCH table. Both feet were wrapped with Webrill cotton wrap along with Coban. The feet were placed in specialized boots for the ARCH table, well seated within the boot and secured. SCDs were applied. The patient was then slid down onto a peroneal post and the nonoperative leg was secured in a leg baptiste attached to the table. The operative side was placed into the ARCH table attachment and bed height and positioning was secured. A preoperative AP pelvis was obtained to serve as a reference for determining leg lengths. Prophylactic antibiotics in the form of Cefazolin were administered. 1g of Tranxemic Acid was given intravenously within 30 minutes of incision. The right leg was then prepped with Chloraprep and draped in a standard fashion. A second prep with Chloraprep was performed prior to placement of a shower-curtain type drape with Iodine impregnated skin protection. A timeout to confirm correct identity, side and site, procedure, allergies, anesthesia, and medical concerns was performed. An obliquely oriented incision was made starting lateral to the ASIS and running distal over the Tensor Fascia Dinora (TFL) muscle belly toward the fibular head, approximately 10cm. The skin and soft tissue was dissected sharply, through Antoinette?s fascia, and to the fascia of the TFL. With the fascia and superior border of the IT band identified, the fascia was incised with a new knife just above any perforators from the IT band. The TFL muscle belly was bluntly dissected away from the fascia and moved laterally. The fat between TFL and rectus was identified to ensure the dissection was not within the TFL. Blunt dissection created space between abductors and the capsule and retractor was placed over the lateral femoral neck. The fibers of the rectus femoris tendon were identified and these were freed from the anterior capsule. A second cobra retractor was placed around the medial femoral neck. The TFL was further retracted laterally to show the deep fascia. Careful dissection through this layer identified three main crossing vessels of the lateral femoral circumflex. These were cauterized in multiple locations and then cut without any noticeable bleeding. The TFL was further released bluntly from the deep fascia to expose anterior hip capsule and fat The Davon orthopaedic retractor was then placed beneath the TFL and against sartorius and medial soft tissues to protect and retract the soft tissues. A T-capsulotomy was then performed starting at the superior lateral acetabulum and moving distally to the intertrochanteric ridge. These capsular flaps were tagged with a No. 1 Ethibond and elevated from within. The capsular flaps were released to the shoulder of the lateral neck and to the lesser trochanter to give excellent visualization of the proximal femur. A neck osteotomy was performed using an oscillating saw based on preoperative templates. This cut started in the shoulder and of the lateral neck and exited medially. The saw was at all times directed medially to avoid injury to the greater trochanter. 6cm of traction was applied to the leg and the osteotomy opened. The femoral head was removed with a corkscrew, making sure to protect the TFL on its exit. The head was flattened and deformed from previous fracture. Portions of the rectus obscuring visualization were minimally elevated off the superior acetabulum. There was excessive and hypertrophic synovium and therefore I first resected the synovium and excess capsule from within the hip for visualization. The posteromedial capsul was contracted down and this was lengthened by incising the capsule in various locations but never full thickness, similar to a pie-crusting technique. Then an anterior retractor was placed over the anterior wall between capsule and labrum and attached to the Gripper retraction system. A posterior retractor was placed similarly behind the posterior wall. This provided excellent visualization. The contents of the cotyloid fossa were removed with electrocautery and the labrum was removed with a knife. Acetabular reaming began with a 44mm reamer. This first reaming was directed anterior to posterior and medial to get down to the true floor. This was inspected and reamed until the true floor was reached. The anterior retractor was then released and entry and exit was provided by traction on the capsular flaps. I then reamed sequentially up to a 48mm reamer where good fit was ob tained. The larger reamers were oriented based on anatomical reference of the anterior and lateral moreira to ensure proper abduction and anteversion. Positioning and size was confirmed with the fluoroscopy. A 48mm Depuy Crittenden acetabular component was selected. The acetabulum was reamed around the periphery with the selected acetabular size to prevent a rim fit. The deep tissues were irrigated. The acetabular component was then impacted in a position of about 40-45 degrees of abduction and 15-20 degrees of anteversion, using the patient?s anatomy as the ultimate landmark. Fluoroscopy was used to confirm this. There was excellent adjustment supervisor of the acetabular component and the inserting handle was removed. A primary acetabular screw was placed into the ilium by drilling through one of the holes in the acetabular component. This was measured and an approrpriately sized screw was placed with excellent purchase. It was checked not to be proud. A second screw was placed in a similar fashion. The acetabular liner, Depuy [id number] polyethylene liner, was inserted and lined up with the tines of the acetabular component. There was no soft tissue interposition. The liner was then impacted into position and confirmed to be well-seated. A portion of the mariela-articular cocktail was then injected around the acetabulum into the capsule and periosteum. This cocktail consisted of 50cc of 0.25% Bupivicaine and 20cc of Exparel, expanded to a total of 120cc. Traction was released from the femur. The leg was rotated to 120 degrees. Any remaining medial capsule was released until the lesser trochanter was easily palpable. A Cosby retractor was placed medially. The lateral capsule was further released into the shoulder to allow access to the greater trochanter. A Cosby retractor was placed over the greater trochanter which allowed the trochanter to flip in front of the capsule for excellent exposure. The leg was brought down into maximal extension and 20 degrees of adduction while ensuring there was no impingement on the acetabulum. Any remnant capsule within the trochanter was released. Piriformis and obturator externis were identified and protected. There was excellent access to the proximal femur. The lateral neck remnant was removed with a rongeur. A blunt canal probe was used to identify the canal and trajectory for later broaching. A box osteotome initiated the broach course. A small curved rasp and a curved curette were used to work laterally. Broaching then began with a size 8 Corail broach. This was inserted manually around the trochanter and into the canal before mallet blows. The broach was seated to a few millimeters below the cut level based on the neck cut and the preoperative template. Sequential broaching was continued with the ALCOHOOTcise pneumatic broaching device until a tight fit was obtained with good rotational control of the femur. A trial standard neck was inserted along with a +5 trial head. The leg was brought out of extension and adduction and then reduced with traction and internal rotation. The leg was stable anteriorly in a position of 30 degrees of extension and 90 degrees of external rotation. Fluoroscopy was used to ensure there was no fracture and the stem was seated well. Leg lengths were checked with an AP pelvis and pelvic reference points. 6APT navigation system was used to confirm appropriate positioning and leg length and offset. This still did not fully recreate the leg length deficit of 13mm and still had some lack of offset recreation. However, the high offset stem would provide this difference. Thus, I dislocated the hip, placed the trial high offset neck wiht a +5 head and re-reduced the hip. This was notable stable and felt more appropriate requiring 3cm of traction to reduce. Once content with the desired offset and leg lengths, the leg was brought back into extension, external rotation and adduction. The periosteum and surrounding tissue was injected with remaining portion of the mariela-articular cocktail. The proximal femur was irrigated as well as the deep tissues. The Depuy Corail High Offset stem, size 10, was then manually inserted into the proximal femur making sure to control rotation. It was then malleted into position with light blows, giving breaks to allow bone expansion and decrease risk of fracture. The selected Depuy Altrx Ceramic Head, size 32+5mm, was then placed onto the clean and dry trunnion and secured with impaction onto the tapered fit. The leg was brought back out of extension and adduction and reduced with trac tion and internal rotation. Stability was confirmed with no shuck at 90 degrees of external rotation and 30 degrees of extension. No impingement through range of motion arc. Final x-ray images were obtained with fluoroscopy to confirm adequate positioning and no intraoperative fracture. The deep tissues were thoroughly irrigated with Irrisept chlorhexadine solution. The second dose of TXA 1g was administered intravenously.The capsule was then reapproximated with the previously placed Ethibond sutures. The TFL fascia was finally closed with a No. 2 Stratafix, barbed suture. Deep tissues were then reapproximated with 0 Vicryl and a running 2-0 Vicryl. The skin was closed with a running 4-0 Monocryl in a subcuticular fashion. This was reinforced with skin glue. A Mepilex silver dressing was applied. At the end of the case, all counts were correct. Linda was transferred to the hospital bed without difficulty and suffering no apparent complication. Linda has a good prognosis although gaurded due to her significant deconditioning and chronic state from the fracture. Physical therapy will start today and without restrictions, weight-bearing as tolerated. DVTprophylaxis will be managed by the Hospitalist service.
[2019-10-04] MEDS: Senna TAB 1 TAB PO (22:01)
[2019-10-04] MEDS: Normal Saline Flush 10 ML SYR (22:02)
[2019-10-04 22:19] LABS: PTT Activated 28.1 sec (21.0-31.4)
--- NOTE | 2019-10-05 00:17 | NUR.NOTE ---
Pt requested that all four bed rails be raised.Nursing Note:
[2019-10-05] MEDS: dilTIAZem 30 MG TAB PO ×4 (01:51→20:32)
[2019-10-05] MEDS: Refresh PLUS Eye Drops 0.4ml 1 EACH OU ×6 (01:52→23:30)
[2019-10-05 03:49] VITALS: BP 92/58; PULSE 130; RESP 16; TEMP 37.2; O2SAT 95
[2019-10-05 04:26] LABS: Abs Immature Grans 0.06 k/cumm (0.0-0.09); Absolute Neutrophil Count 17.07 k/cumm (1.2-6.7); Basophils % 0.1; Eosinophils % 0.1; HCT 31.3 % (36.0-46.0); HGB 10.7 g/dL (12.0-15.5); Immature Grans % 0.3 %; Lymphocytes % 4.8; Mean Corp. HGB Concentration 34.2 g/dL (32.0-36.0); Mean Corpuscular Hemoglobin 29.2 pg (27.0-33.0); Mean Corpuscular Volume 85.5 fL (80-95); Mean Platelet Volume 12.9 fL (8.0-11.0); Monocytes % 8.6; Neutrophils % 86.1; Platelet Count 179 x1000/uL (130-400); RBC 3.66 m/cumm (4.00-5.20); RBC Distribution Width 13.8 % (11.7-14.6); White Blood Cell Count 19.82 k/cumm (4.4-10.8)
[2019-10-05 04:32] LABS: Anion Gap 8.1 mmol/L (3-11); BUN 43 mg/dL (7-18); CO2 25.9 mmol/L (21.0-32.0); CREATININE 1.94 mg/dL (0.55-1.02); Calcium 8.6 mg/dL (8.5-10.1); Chloride 88 mmol/L (98-107); Estimated GFR 24.65 (mL/min/1.73m2); Glucose 194 mg/dL (74-106); Potassium 5.7 mmol/L (3.5-5.1)
[2019-10-05 04:36] LABS: Sodium 122 mmol/L (136-145)
[2019-10-05 04:55] LABS: Absolute Basophil Count 0.02 k/cumm (0.0-0.2); Absolute Eosinophil Count 0.02 k/cumm (0.0-0.7); Absolute Lymphocyte Count 0.95 k/cumm (1.2-3.4)
[2019-10-05 04:57] LABS: Anisocytosis 1+; Diff Comment Agrees w/ Instrument; Polychromasia Present
[2019-10-05 05:02] LABS: PTT Activated 111.8 sec (21.0-31.4)
[2019-10-05 05:06] LABS: INR 1.2 (0.9-1.1)
--- NOTE | 2019-10-05 07:30 | RT.EKG_ITS ---
APPROVED REPORT Exam: Resting ECG Patient Location: I HR:119 bpm ECG Measurements Heart Rate 119 AXIS TX [id number] P [id number] QRSd 132 QRS -64 QT 354 T 114 QTc 499 <Conclusion> Atrial flutter with 2:1 AV block...A-rate 263, V-rate> 99 LVH with secondary repolarization abnormality...multi-LVH criteria, abnrm ST-T ST elevation secondary to atrial flutter
[2019-10-05] MEDS: Normal Saline Flush 10 ML SYR IVP (08:57)
[2019-10-05 08:59] LABS: Anion Gap 7.3 mmol/L (3-11); BUN 44 mg/dL (7-18); CO2 25.7 mmol/L (21.0-32.0); CREATININE 1.93 mg/dL (0.55-1.02); Calcium 8.7 mg/dL (8.5-10.1); Chloride 89 mmol/L (98-107); Estimated GFR 24.79 (mL/min/1.73m2); Glucose 192 mg/dL (74-106); Magnesium 2.1 mg/dL (1.8-2.4); Potassium 5.3 mmol/L (3.5-5.1); Troponin I < 0.05 ng/mL (<0.06)
[2019-10-05] MEDS: Docusate Sodium 100 MG CAP PO ×2 (08:59→20:32)
[2019-10-05] MEDS: Metoprolol 50 MG TAB PO ×2 (08:59→20:32)
[2019-10-05] MEDS: Multivitamin TAB 1 TAB PO (08:59)
[2019-10-05] MEDS: Pantoprazole 40 MG TABCR PO (09:00)
[2019-10-05] MEDS: Aspirin E.C. 81 MG TABEC PO (09:00)
[2019-10-05 09:01] LABS: Sodium 122 mmol/L (136-145)
[2019-10-05] MEDS: Insulin Aspart 300 UNITS/3 ML PEN SC ×4 (09:01→21:56)
[2019-10-05 09:02] VITALS: BP 110/60; BP 95/63; PULSE 132; RESP 16; TEMP 36.8; O2SAT 95
[2019-10-05] MEDS: Furosemide 40 MG/4 ML VIAL IVP ×2 (09:58→16:18)
[2019-10-05] MEDS: cefTRIAXone 1 GM/50 ML BAG IVPB (09:58)
[2019-10-05] MEDS: Normal Saline 500 ML 30 ML IV (10:00)
--- NOTE | 2019-10-05 10:29 | CMPROGNOTE_ITS ---
- If Service Date Differs Date of service: 10/05/19 Time of Service: 10:29 Care Management Progress Note S/O: A:Rapid afib, CHF, history of fracture of the right femur to be repaired. P: Linda will have the right femur repaired on 10/04/2019 anticipate she will need short term rehab she has agreed [facility] which have been faxed will await a bed offer. Transportation pending disposition. CM to continue to assess for discharge needs and coordinate disposi tion.
--- NOTE | 2019-10-05 10:35 | PT.INIE ---
Date of service: 10/05/19 Time of Service: 09:00 PT Notes Visit Reasons: RAPID AFIB,OLD R HIP FX Inpatient Physical Therapy Evaluation Date: 10/05/19 Referring Doctor: Dr. Stovall PT Orders: PT CONSULT: s/p right DARIEL Precautions: Fall, standard Patient Profile/Admitting Diagnosis: Patient admitted 10/01/19 for management of atriall fibrillation on anticoagulation, with RLE DVT. She had been previously scheduled for a right DARIEL to address a chronic femoral head fracture. Her hip replacement was performed during her acute care stay, on 10/04/19. Attempted PT consultation on day of surgery, although patient was placed on hold per nursing due to corneal abrasion. This morning, nursing requests hold on transfers due to tachycardia, with HR in 130s at rest. PMHX: Arthritis (Acute) ASCVD (arteriosclerotic cardiovascular disease) (Acute 04/22/15) [place] with out of hosp cardiac arrest LAD stent, LVEF 35% Atrial fibrillation (Acute 05/27/11) paroxysmal Oct 2009 Carpal tunnel syndrome on both sides (Acute) CHF (congestive heart failure) (Chronic) Chronic low back pain (Chronic) Complementary medicine (Chronic) homeopathic primarily: DNI (do not intubate) (Acute) DNR (do not resuscitate) (Acute) Essential hypertension (Acute 01/04/13) echo 2007 LVH uncontrolled BP (neg w/u for pheo) Foot drop, left (Acute) GERD (gastroesophageal reflux disease) (Chronic) Hip pain, right (Chronic) Hyperlipidemia (Acute) Hypertensive retinopathy (Acute) Impaired left ventricular function (Acute ~05/2019) [facility] [place] 35% Low back pain (Acute) Lumbar stenosis (Acute) Mild obstructive sleep apnea (Acute 11/17/15) [facility] NSTEMI (non-ST elevated myocardial infarction) (Acute ~05/2019) [facility] [place] (Acute) Pedal edema (Acute) POLST (Physician Orders for Life-Sustaining Treatment) (Chronic) 3 on file Refusal of blood transfusions as patient is Christian (Acute) Renal insufficiency (Chronic) Type II diabetes mellitus with complication, uncontrolled (Acute 05/14/14) Social History/Home Situation: Patient lives alone. Her son is present at initiation of PT session. [facility] prior to returning home. Equipment Owned/DME: [employer] Subjective: Linda states that she is feeling well. She is looking forward to being able to get up out of bed. Objective: General Observation: Resting in bed with IV in RUE, patch to right eye, and H[place] catheter in place. Mental Status: A&Ox3 Pain: 0/10 Vital Signs: HR noted at 133 via telemetry just prior to session. ROM: Right Upper Extremity: WFL Left Upper Extremity: WFL Right Lower Extremity: not assessed due to post-op status Left Lower Extremity: WFL Strength: Right Upper Extremity: WFL Left Upper Extremity: WFL Right Lower Extremity: Good quad activation with quad sets. Ankle DF 3-/5. Left Lower Extremity: Grossly WFL with the exception of ankle DF 3-/5. Sensation: intact distally Bed Mobility/Transfers: unable to assess due to tachycardia Gait: unable to assess due to tachycardia Balance: unable to assess due to tachycardia Special Tests: Mobility Limitations Standardized Measure [facility] AM-PAC 6 clicks Basic Mobility Inpatient Short Form: Raw Score: 6 CMS Score: 100% Informed Consent/Education: Patient instructed in purpose of PT consult and plan of care. Treatment: Patient was instructed in bed exercises as tolerated. These can be found noted on flowsheet. Deferred on transfers due to tachycardia. Assessment: Patient is a 84 year old female referred to physical therapy services with the diagnosis of s/p right DARIEL. Patient presents with clinical signs and symptoms consistent with post-op status, although complicated by atrial fibrillation and RLE DVT. Unfortunately, her cardiac status prevents transfer at time of evaluation. She currently demonstrates the following impairment level findings: 1. Decreased RLE ROM 2. Decreased RLE strength 3. Decreased activity tolerance 4. Mobility restrictions due to atrial fibrillation with tachycardia at rest Impairments are contributing to the following functional limitations: 1. Decreased independence with transfers 2. decreased independence with gait 3. decreased activity tolerance Patient is assessed as High [id number] complexity based on the following: History: 84 year old female with multiple co-morbidities, presenting 1 day s/p right DARIEL. She currently has mobility restrictions due to atrial fibrillation. Additional contributing factors include living alone at an advanced age, DM, extensive cardiac history with chronic anticoagulation, current DVT in RLE. Examination: functional limitations as noted above Presentation: unstable Decision Making: high complexity Goals: Goals X1 week 1. Supine-Sit: min A 2. Sit-Supine: min A 3. Sit-Stand: min A 4. Stand-Sit : min A 5. Bed-Chair: min A with FWW 6. Chair-Bed : min A with FWW 7. Gait : min A with FWW x 25' Plan of Care/Treatment Plan: 1-2x/day, 7 days/week x 1 week. Will monitor patient closely and initiate transfers as soon as these can safely be performed from a cardiac standpoint. Plan of care has been reviewed with the [facility] providing the service under Physical Therapy direction. Initiate Physical Therapy intervention for strengthening, bed mobility, transfers, gait, stairs, balance training, use of assistive device. DISCHARGE RECOMMENDATIONS: SNF TREATMENT CODE/TIME: 9:00-9:15 ([id number]) Viri Ray, PT, DPT [facility]
[2019-10-05] MEDS: Sodium Zirconium Cyclosilicate 10 GM PKT PO ×3 (10:47→21:57)
--- NOTE | 2019-10-05 11:26 | PT.INTREAT ---
Date of service: 10/05/19 Time of Service: 11:00 PT Notes Visit Reasons: RAPID AFIB,OLD R HIP FX Inpatient Physical Therapy Treatment Note [facility] Date: 10/05/19 PRECAUTIONS:fall, standard, RLE DVT, tachycardia SUBJECTIVE: Linda has been cleared by nursing for transfer. She is looking forward to getting out of bed. OBJECTIVE: PAIN: 0/10 BED MOBILITY/TRANSFERS Supine-sit: min A Sit-stand: min A Stand-sit: min A GAIT Assistive Device: FWW Weight bearing: WBAT Assist: mod A x 2 Distance: 6' Deviation: poor clearance of right foot. Heavy reliance on UE support to FWW. VITALS: HR 98 at initiation of session. Elevates to 124 at EOB, with PATTERSON noted. With rest, she recovers to 100 bpm. At end of session, she remained up in chair with legs elevated and chair alarm in place. HR post session was 88 bpm. ASSESSMENT: Tolerated introduction of transfers and gait well. PLAN: Continue progressing with close monitoring of vitals. TREATMENT CODE/TIME: 11:00-: ([id number]) Viri Ray, PT, DPT [facility]
[2019-10-05 11:35] LABS: Creatine Kinase 188 U/L (26-192)
[2019-10-05 12:00] VITALS: BP 95/56; PULSE 56; RESP 18; TEMP 36.3; O2SAT 95
[2019-10-05 13:23] LABS: Anion Gap 9.9 mmol/L (3-11); BUN 51 mg/dL (7-18); CO2 23.1 mmol/L (21.0-32.0); CREATININE 2.01 mg/dL (0.55-1.02); Calcium 8.7 mg/dL (8.5-10.1); Chloride 86 mmol/L (98-107); Estimated GFR 23.66 (mL/min/1.73m2); Glucose 314 mg/dL (74-106); Troponin I < 0.05 ng/mL (<0.06)
[2019-10-05 13:27] LABS: Sodium 119 mmol/L (136-145)
[2019-10-05 14:07] LABS: PTT Activated 80.4 sec (21.0-31.4)
[2019-10-05] MEDS: Normal Saline 250 ML IV (14:32)
--- NOTE | 2019-10-05 15:07 | CMPROGNOTE_ITS ---
- If Service Date Differs Date of service: 10/05/19 Time of Service: 15:07 Care Management Progress Note S/O: Linda was sitting up in a chair when CM met with her. She was smiling and stated that she feels great and has no pain. She shared that she was scheduled for hip replacement surgery later this month but was happy to have it done a bit early as she has been in a lot of pain for quite some time. She will likely go to a detention facility for [facility] term rehab early next week . A:Rapid afib, CHF, history of fracture of the right femur to be repaired. P: Linda had a right total hip arthroplasty yesterday. She will need short term rehab and has agreed to have referrals sent to [facility] and [facility]. These were completed and faxed by CM . No bed offer has been received as yet. Transportation pending disposition. CM to continue to support patient and assess for discharge needs and coordinate disposition.
[2019-10-05 16:47] VITALS: BP 102/62; PULSE 81
[2019-10-05 16:48] LABS: Anion Gap 8.3 mmol/L (3-11); BUN 54 mg/dL (7-18); CO2 23.7 mmol/L (21.0-32.0); CREATININE 2.02 mg/dL (0.55-1.02); Calcium 8.3 mg/dL (8.5-10.1); Chloride 87 mmol/L (98-107); Estimated GFR 23.52 (mL/min/1.73m2); Glucose 257 mg/dL (74-106); Potassium 5.1 mmol/L (3.5-5.1)
--- NOTE | 2019-10-05 16:54 | PGE_ITS ---
Date of Service Date of service: 10/05/19 Time of Service: 16:54 Assessment and Plan Assessment and plan (1) Fracture of head of right femur: Status: Chronic Assessment and plan: s/p total hip 10/04/[address] Stovall. Continue PT/OT. Will likely require SNF on discharge. Qualifiers: Encounter type: initial encounter Fracture type: closed Qualified Code(s): S72.051A - Unspecified fracture of head of right femur, initial en counter for closed fracture (2) Paroxysmal atrial fibrillation with RVR: Status: Acute Assessment and plan: Rates much better controlled today than last night. The patient does go into a bundle branch block when rapid. Continue short acting cardizem and metoprolol with holding parameters. Monitor manual BP's which tend to be different in this patient. Continue Heparin drip. Would ideally be transitioned to a DOAC once H/H stabilizes. Developed a DVT (RLE distal) while on coumadin. (3) Acute on chronic diastolic CHF (congestive heart failure), NYHA class 1: Status: Acute Assessment and plan: Lasix resumed today - transition to PO while also hydrating in an attempt to correct hyponatremia.. (4) Acute deep vein thrombosis (DVT) of right lower extremity: Status: Acute Assessment and plan: Distal (right posterior tibial vein), unclear if it is acute or chronic, developed while on coumadin - i.e. coumadin failure. Continue heparin gtt until H/H stable, then transition to a DOAC (5) Hyponatremia: Status: Acute Assessment and plan: Acute on chronic. The patient did admit to eating pickles at home, and I wonder if that was not her equivalent of taking salt tablets, thereby improving her sodium. 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 Here, since she has been salt restricted, her sodium has decreased. Will attempt to hydrate IV with NS while simultaneously diuresin g. Perhaps, would benefit from salt tablets on discharge - or could simply resume eating pickles and take lasix prn for edema at home. (6) UTI (urinary tract infection): Status: Acute Assessment and plan: Due to E. Coli, Unclear if this was present on admission. Pansensitive. Switched to IV ceftriaxone from periop cefazolin.. (7) Corneal abrasion, right: Status: Suspected Assessment and plan: Significantly better today. Continue jarret ointment at night and lubricating drops during the day. (8) DVT prophylaxis: Status: Acute Assessment and plan: heparin gtt (9) Discharge planning issues: Status: Acute Assessment and plan: DNR/DNI Continues to require hospitalization. Anticipate discharge to SNF when medically ready. Subjective Subjective Interval history since last seen: Ms Bautista is s/p R anterior total hip arthroplasty yesterday by Dr Stovall. Pain is well controlled. HR high overnight, but did not receive metoprolol due to low BP's. C/o R eye pain (h/o corneal errosion), but the pain is completely gone now with eye drops. She denies dizziness, chest pain, shortness of breath, nausea. Continues to have spasms in the right leg. States hyponatremia has been chronic for her - this is why she eats pickles - they help. Exam Narrative Exam Narrative: General: Very pleasant elderly female, sitting in a chair, looks great, A&Ox3 HEENT: EOMI, MMM Cardiovascular: irregularly irregular rhythm, not tachycardic (70s), no m/r/g, Lungs: CTAB Gastrointestinal: soft,nontender, nondistended Extremities: 1+ BLE edema, significantly better, wrinkles; no c/c, 1+ bilateral pedal pulses, observed having spasms in RLE. Objective Objective Clinical Data: Abnormal lab results 10/05/19 10/05/19 10/05/19 Range/Units 04:00 04:00 04:00 WBC (4.4-10.8) k/cumm RBC (4.00-5.20) m/cumm Hgb (12.0-15.5) g/dL Hct (36.0-46.0) % MPV (8.0-11.0) fL Absolute Neutrophils (1.2-6.7) k/cumm Absolute Lymphocytes (1.2-3.4) k/cumm Absolute Monocytes (0.11-0.7) k/cumm PT 12.0 H (9.3-11.0) sec INR 1.2 H (0.9-1.1) APTT 111.8 H* D (21.0-31.4) sec Sodium 122 L* (136-145) mmol/L Potassium 5.7 H D (3.5-5.1) mmol/L Chloride 88 L (98-107) mmol/L BUN 43 H (7-18) mg/dL Creatinine 1.94 H (0.55-1.02) mg/dL Glucose 194 H (74-106) mg/dL 10/05/19 10/05/19 10/05/19 Range/Units 04:00 08:20 12:54 WBC 19.82 H D (4.4-10.8) k/cumm RBC 3.66 L (4.00-5.20) m/cumm Hgb 10.7 L (12.0-15.5) g/dL Hct 31.3 L (36.0-46.0) % MPV 12.9 H (8.0-11.0) fL Absolute Neutrophils 17.07 H (1.2-6.7) k/cumm Absolute Lymphocytes 0.95 L (1.2-3.4) k/cumm Absolute Monocytes 1.70 H (0.11-0.7) k/cumm PT (9.3-11.0) sec INR (0.9-1.1) APTT 80.4 H* D (21.0-31.4) sec Sodium 122 L* (136-145) mmol/L Potassium 5.3 H (3.5-5.1) mmol/L Chloride 89 L (98-107) mmol/L BUN 44 H (7-18) mg/dL Creatinine 1.93 H (0.55-1.02) mg/dL Glucose 192 H (74-106) mg/dL 10/05/19 Range/Units 12:54 WBC (4.4-10.8) k/cumm RBC (4.00-5.20) m/cumm Hgb (12.0-15.5) g/dL Hct (36.0-46.0) % MPV (8.0-11.0) fL Absolute Neutrophils (1.2-6.7) k/cumm Absolute Lymphocytes (1.2-3.4) k/cumm Absolute Monocytes (0.11-0.7) k/cumm PT (9.3-11.0) sec INR (0.9-1.1) APTT (21.0-31.4) sec Sodium 119 L* (136-145) mmol/L Potassium (3.5-5.1) mmol/L Chloride 86 L (98-107) mmol/L BUN 51 H (7-18) mg/dL Creatinine 2.01 H (0.55-1.02) mg/dL Glucose 314 H D (74-106) mg/dL Vital Signs Temperature 36.3 C L 10/05/19 12:00 Temperature Source Tympanic 10/05/19 12:00 Pulse 81 10/05/19 16:47 Pulse Rhythm Irregular 10/05/19 09:10 Pulse 79 10/04/19 10:00 Respiratory Rate 18 10/05/19 12:00 Respiratory Effort Non-Labored 10/05/19 09:10 Respiratory Depth Normal 10/05/19 09:10 Respiratory Pattern Normal 10/05/19 09:10 Blood Pressure 102/62 10/05/19 16:47 Blood Pressure Mean 59 10/04/19 07:22 Blood Pressure Position Supine 10/03/19 03:45 Pulse Oximetry 95 10/05/19 12:00 Respiratory End-tidal CO2 32 10/04/19 15:42 Oxygen Delivery Method Room Air 10/05/19 12:00 Oxygen Flow Rate 0 10/05/19 12:00 Pain Level 0 10/05/19 12:00 Comment 10/04/19 19:00 Intake & Output 10/04/19 10/05/19 10/05/19 23:59 11:59 23:59 Intake Total 570 / 997.066 333.7 / 713.033 379.333 / 713.033 Output Total 700 / 1500 375 / 650 275 / 650 Balance -130 / -502.934 -41.3 / 63.033 104.333 / 63.033 Weight 70.2 kg Intake: IV 570 / 757.066 93.7 / 233.033 139.333 / 233.033 Oral 240 / 480 240 / 480 Output: Urine 350 / 1150 375 / 650 275 / 650 Estimated Blood Loss 350 / 350 Other: Urine Color Dark Jessica Yellow Yellow Urine Appearance Clear Clear Clear Comment No sign of hematuria at this time. Emesis Description None Voiding Methods Indwelling Catheter Indwelling Catheter Laboratory Results WBC 19.82 k/cumm (4.4-10.8) H D 10/05/19 04:00 RBC 3.66 m/cumm (4.00-5.20) L 10/05/19 04:00 Hgb 10.7 g/dL (12.0-15.5) L 10/05/19 04:00 Hct 31.3 % (36.0-46.0) L 10/05/19 04:00 MCV 85.5 fL (80-95) 10/05/19 04:00 MCH 29.2 pg (27.0-33.0) 10/05/19 04:00 MCHC 34.2 g/dL (32.0-36.0) 10/05/19 04:00 RDW 13.8 % (11.7-14.6) 10/05/19 04:00 Plt Count 179 x1000/uL (130-400) 10/05/19 04:00 MPV 12.9 fL (8.0-11.0) H 10/05/19 04:00 Immature Gran % 0.3 % 10/05/19 04:00 Neutrophils % 86.1 10/05/19 04:00 Lymphocytes % 4.8 10/05/19 04:00 Monocytes % 8.6 10/05/19 04:00 Eosinophils % 0.1 10/05/19 04:00 Basophils % 0.1 10/05/19 04:00 Absolute Neutrophils 17.07 k/cumm (1.2-6.7) H 10/05/19 04:00 Absolute Lymphocytes 0.95 k/cumm (1.2-3.4) L 10/05/19 04:00 Absolute Monocytes 1.70 k/cumm (0.11-0.7) H 10/05/19 04:00 Absolute Eosinophils 0.02 k/cumm (0.0-0.7) 10/05/19 04:00 Absolute Basophils 0.02 k/cumm (0.0-0.2) 10/05/19 04:00 Differential Comment Agrees w/ instrument 10/05/19 04:00 RBC Morphology See below 10/05/19 04:00 Polychromasia Present 10/05/19 04:00 Anisocytosis 1+ 10/05/19 04:00 PT 12.0 sec (9.3-11.0) H 10/05/19 04:00 INR 1.2 (0.9-1.1) H 10/05/19 04:00 APTT 80.4 sec (21.0-31.4) H* D 10/05/19 12:54 Sodium 119 mmol/L (136-145) L* 10/05/19 12:54 Potassium 5.0 mmol/L (3.5-5.1) 10/05/19 12:54 Chloride 86 mmol/L (98-107) L 10/05/19 12:54 Carbon Dioxide 23.1 mmol/L (21.0-32.0) 10/05/19 12:54 Anion Gap 9.9 mmol/L (3-11) 10/05/19 12:54 BUN 51 mg/dL (7-18) H 10/05/19 12:54 Creatinine 2.01 mg/dL (0.55-1.02) H 10/05/19 12:54 Estimated GFR/1.73 m2 23.66 (mL/min/1.73m2) 10/05/19 12:54 Glucose 314 mg/dL (74-106) H D 10/05/19 12:54 Hemoglobin A1c 7.7 % (3.8-5.6) H 10/01/19 13:30 Calcium 8.7 mg/dL (8.5-10.1) 10/05/19 12:54 Magnesium 2.1 mg/dL (1.8-2.4) 10/05/19 08:20 Total Bilirubin 0.6 mg/dL (0.2-1.0) 10/01/19 13:30 AST 21 U/L (15-37) 10/01/19 13:30 ALT 20 U/L (14-59) 10/01/19 13:30 Alkaline Phosphatase 77 U/L (46-116) 10/01/19 13:30 Creatine Kinase 188 U/L (26-192) 10/05/19 08:20 Troponin I < 0.05 ng/mL (<0.06) 10/05/19 12:54 NT-Pro-B Natriuret Pep 1785 pg/mL (<300) H 10/01/19 13:30 Total Protein 7.9 g/dL (6.4-8.2) 10/01/19 13:30 Albumin 3.5 g/dL (3.4-5.0) 10/01/19 13:30 Triglycerides 62 mg/dL (<150) 10/02/19 06:07 Total Cholesterol 86 mg/dL (<200) 10/02/19 06:07 LDL Cholesterol, Calc 38 mg/dL (<100) 10/02/19 06:07 HDL Cholesterol 36 mg/dL (40-60) L 10/02/19 06:07 25-OH Vitamin D Total 44.7 ng/ml (30-100) 10/04/19 05:25 Urine Color Red (Yellow) 10/03/19 13:32 Urine Clarity Cloudy (Clear) 10/03/19 13:32 Urine pH 7.0 (5-8) 10/03/19 13:32 Ur Specific [place] 1.020 (1.005-1.025) 10/03/19 13:32 Urine Protein 100 mg/dL (Negative) H 10/03/19 13:32 Urine Ketones Negative mg/dL (Negative) 10/03/19 13:32 Urine Blood Large (Negative) H 10/03/19 13:32 Urine Nitrite Positive (Negative) H 10/03/19 13:32 Urine Bilirubin Small (Negative) H 10/03/19 13:32 Urine Urobilinogen 0.2 EU/dL (Up TO 0.2) 10/03/19 13:32 Ur Leukocyte Esterase Large (Negative) H 10/03/19 13:32 Urine RBC HPF (0-2) 10/03/19 13:32 Urine WBC HPF (0-5) 10/03/19 13:32 Ur Epithelial Cells HPF (Negative) 10/03/19 13:32 Urine Crystals HPF (Negative) 10/03/19 13:32 Urine Bacteria HPF (Negative) 10/03/19 13:32 Urine Casts LPF (Negative) 10/03/19 13:32 Urine Mucus (Negative) 10/03/19 13:32 Ur Culture Indicated? Color interference 10/03/19 13:32 Urine Glucose Negative mg/dL (Negative) 10/03/19 13:32 COVID-19 PCR Negative (Negative) 10/01/19 17:55 Nasopharyn COVID-19 PCR Not Applicable 10/01/19 17:55 Ref Test Perform Site [facility] lab 10/01/19 17:55 Tele: in and out of BBB - in BBB whenever rapid.
[2019-10-05 16:55] LABS: Sodium 119 mmol/L (136-145)
[2019-10-05] MEDS: Normal Saline 1,000 ML 75 ML IV (17:11)
[2019-10-05] MEDS: Senna TAB 1 TAB PO (20:32)
[2019-10-05 21:25] VITALS: BP 92/48; PULSE 78; RESP 18; TEMP 36.6; O2SAT 96
[2019-10-05 21:41] LABS: BUN 55 mg/dL (7-18); CREATININE 1.93 mg/dL (0.55-1.02); Calcium 8.3 mg/dL (8.5-10.1); Chloride 88 mmol/L (98-107); Estimated GFR 24.79 (mL/min/1.73m2); Glucose 244 mg/dL (74-106); Potassium 4.6 mmol/L (3.5-5.1)
[2019-10-05 21:53] LABS: PTT Activated 60.4 sec (21.0-31.4)
[2019-10-05] MEDS: Insulin Glargine 300 UNITS/3 ML PEN 12 UNITS SC (21:57)
--- NOTE | 2019-10-05 22:02 | W.PM.PROGNOT ---
Date of Service Date of service: 10/05/19 Time of Service: 13:02 Assessment and Plan Assessment and plan (1) Fracture of head of right femur: Status: Chronic Assessment and plan: Linda is an 84 yo POD#1 s/p R Anterior DARIEL for fracture. She is doing well. She is significantly deconditioned and weak from dealing wiht this for at least a year or so in addition to her baseline medical conditions. She has had some acute post-oeprative blood loss anemia but it is minimal and she would refuse blood transfusion either way. Appreciate Hospitalist management of her multiple medical comorbidities. As for the right hip, she may weight bear as tolerated. No positioning or motion restrictions. Ambulate with assistance at all times. May start DOAC when determined to be medically stable. No signs of active hemorrhage. Likely d/c to SNF for continued rehabilitation and recovery. Qualifiers: Encounter type: initial encounter Fracture type: closed Qualified Code(s): S72.051A - Unspecified fracture of head of right femur, initial encounter for closed fracture Subjective Subjective Patient reports: no new complaints Interval history since last seen: Linda has had no complaints about the right hip. She was able to take a few steps with PT although had some shortness of breath and dizziness. She has been sitting up in the chair. Her hear rate has been elevated but is improving. Minimal complaints of pain, requiring no pain meds. Exam Narrative Exam Narrative: Notable bruising about the right hip. Dressing is c/d/i. Thigh is soft and compressible. She gaurds significantly throughout the exam but when she relaxes she is able to tolerate gentle internal and external rotation about the hip without pain. She is surprised by this. She is able to demonstrate some weak hip flexion. Intact ADF/APF/EHL/FHL. SILT DP/SP/Tib/Fem. Palpable DP/PT. Objective Objective Clinical Data: Abnormal lab results 10/05/19 10/05/19 10/05/19 Range/Units 08:20 12:54 12:54 WBC (4.4-10.8) k/cumm RBC (4.00-5.20) m/cumm Hgb (12.0-15.5) g/dL Hct (36.0-46.0) % MPV (8.0-11.0) fL Absolute Neutrophils (1.2-6.7) k/cumm Absolute Monocytes (0.11-0.7) k/cumm APTT 80.4 H* D (21.0-31.4) sec Sodium 122 L* 119 L* (136-145) mmol/L Potassium 5.3 H (3.5-5.1) mmol/L Chloride 89 L 86 L (98-107) mmol/L BUN 44 H 51 H (7-18) mg/dL Creatinine 1.93 H 2.01 H (0.55-1.02) mg/dL Glucose 192 H 314 H D (74-106) mg/dL Calcium (8.5-10.1) mg/dL 10/05/19 10/05/19 10/05/19 Range/Units 16:23 21:00 21:00 WBC (4.4-10.8) k/cumm RBC (4.00-5.20) m/cumm Hgb (12.0-15.5) g/dL Hct (36.0-46.0) % MPV (8.0-11.0) fL Absolute Neutrophils (1.2-6.7) k/cumm Absolute Monocytes (0.11-0.7) k/cumm APTT 60.4 H D (21.0-31.4) sec Sodium 119 L* 120 L* (136-145) mmol/L Potassium (3.5-5.1) mmol/L Chloride 87 L 88 L (98-107) mmol/L BUN 54 H 55 H (7-18) mg/dL Creatinine 2.02 H 1.93 H (0.55-1.02) mg/dL Glucose 257 H 244 H (74-106) mg/dL Calcium 8.3 L 8.3 L (8.5-10.1) mg/dL 10/06/19 10/06/19 10/06/19 Range/Units 07:44 07:44 07:44 WBC 14.01 H (4.4-10.8) k/cumm RBC 3.05 L (4.00-5.20) m/cumm Hgb 8.9 L (12.0-15.5) g/dL Hct 26.4 L (36.0-46.0) % MPV 13.6 H (8.0-11.0) fL Absolute Neutrophils 10.62 H (1.2-6.7) k/cumm Absolute Monocytes 1.70 H (0.11-0.7) k/cumm APTT 54.8 H (21.0-31.4) sec Sodium 124 L* (136-145) mmol/L Potassium (3.5-5.1) mmol/L Chloride 89 L (98-107) mmol/L BUN 52 H (7-18) mg/dL Creatinine 1.70 H (0.55-1.02) mg/dL Glucose 139 H D (74-106) mg/dL Calcium 8.1 L (8.5-10.1) mg/dL Vital Signs Temperature 36.4 C L 10/06/19 07:45 Temperature Source Tympanic 10/06/19 07:45 Pulse 69 10/06/19 07:45 Pulse Rhythm Regular 10/06/19 04:13 Pulse 79 10/04/19 10:00 Respiratory Rate 15 10/06/19 07:45 Respiratory Effort Non-Labored 10/06/19 04:13 Respiratory Depth Normal 10/06/19 04:13 Respiratory Pattern Normal 10/06/19 04:13 Blood Pressure 98/54 L 10/06/19 07:45 Blood Pressure Mean 59 10/04/19 07:22 Blood Pressure Position Supine 10/03/19 03:45 Pulse Oximetry 94 L 10/06/19 07:45 Respiratory End-tidal CO2 32 10/04/19 15:42 Oxygen Delivery Method Room Air 10/06/19 07:45 Oxygen Flow Rate 0 10/06/19 07:45 Pain Level 0 10/06/19 07:45 Comment 10/05/19 23:41 Intake & Output 10/05/19 10/05/19 10/06/19 11:59 23:59 11:59 Intake Total 333.7 / 2007.766 1675.066 / 2007.766 1581.25 / 1581.25 Output Total 375 / 1450 1075 / 1450 500 / 500 Balance -41.3 / 558.766 600.066 / 131.235 7725.25 / 1081.25 Weight 70.2 kg 70.5 kg Intake: IV 93.7 / 5531.739 0292.066 / 3733.896 2834.25 / 1341.25 Oral 240 / 870 630 / 870 240 / 240 Output: Urine 375 / 1450 1075 / 1450 500 / 500 Other: Urine Color Yellow Yellow Yellow Urine Appearance Clear Clear Clear Comment No sign of hematuria at this time. Voiding Methods Indwelling Catheter Indwelling Catheter Laboratory Results WBC 14.01 k/cumm (4.4-10.8) H 10/06/19 07:44 RBC 3.05 m/cumm (4.00-5.20) L 10/06/19 07:44 Hgb 8.9 g/dL (12.0-15.5) L 10/06/19 07:44 Hct 26.4 % (36.0-46.0) L 10/06/19 07:44 MCV 86.6 fL (80-95) 10/06/19 07:44 MCH 29.2 pg (27.0-33.0) 10/06/19 07:44 MCHC 33.7 g/dL (32.0-36.0) 10/06/19 07:44 RDW 14.0 % (11.7-14.6) 10/06/19 07:44 Plt Count 134 x1000/uL (130-400) 10/06/19 07:44 MPV 13.6 fL (8.0-11.0) H 10/06/19 07:44 Immature Gran % 0.2 % 10/06/19 07:44 Neutrophils % 75.8 10/06/19 07:44 Lymphocytes % 11.6 10/06/19 07:44 Monocytes % 12.1 10/06/19 07:44 Eosinophils % 0.2 10/06/19 07:44 Basophils % 0.1 10/06/19 07:44 Absolute Neutrophils 10.62 k/cumm (1.2-6.7) H 10/06/19 07:44 Absolute Lymphocytes 1.63 k/cumm (1.2-3.4) 10/06/19 07:44 Absolute Monocytes 1.70 k/cumm (0.11-0.7) H 10/06/19 07:44 Absolute Eosinophils 0.03 k/cumm (0.0-0.7) 10/06/19 07:44 Absolute Basophils 0.01 k/cumm (0.0-0.2) 10/06/19 07:44 Differential Comment Agrees w/ instrument 10/06/19 07:44 RBC Morphology See below 10/06/19 07:44 Polychromasia Present 10/06/19 07:44 Poikilocytosis 1+ 10/06/19 07:44 Anisocytosis 1+ 10/05/19 04:00 PT 10.9 sec (9.3-11.0) 10/06/19 07:44 INR 1.1 (0.9-1.1) 10/06/19 07:44 APTT 54.8 sec (21.0-31.4) H 10/06/19 07:44 Sodium 124 mmol/L (136-145) L* 10/06/19 07:44 Potassium 3.9 mmol/L (3.5-5.1) 10/06/19 07:44 Chloride 89 mmol/L (98-107) L 10/06/19 07:44 Carbon Dioxide 26.2 mmol/L (21.0-32.0) 10/06/19 07:44 Anion Gap 8.8 mmol/L (3-11) 10/06/19 07:44 BUN 52 mg/dL (7-18) H 10/06/19 07:44 Creatinine 1.70 mg/dL (0.55-1.02) H 10/06/19 07:44 Estimated GFR/1.73 m2 28.70 (mL/min/1.73m2) 10/06/19 07:44 Glucose 139 mg/dL (74-106) H D 10/06/19 07:44 Hemoglobin A1c 7.7 % (3.8-5.6) H 10/01/19 13:30 Calcium 8.1 mg/dL (8.5-10.1) L 10/06/19 07:44 Magnesium 1.9 mg/dL (1.8-2.4) 10/06/19 07:44 Total Bilirubin 0.6 mg/dL (0.2-1.0) 10/01/19 13:30 AST 21 U/L (15-37) 10/01/19 13:30 ALT 20 U/L (14-59) 10/01/19 13:30 Alkaline Phosphatase 77 U/L (46-116) 10/01/19 13:30 Creatine Kinase 188 U/L (26-192) 10/05/19 08:20 Troponin I < 0.05 ng/mL (<0.06) 10/05/19 12:54 NT-Pro-B Natriuret Pep 1785 pg/mL (<300) H 10/01/19 13:30 Total Protein 7.9 g/dL (6.4-8.2) 10/01/19 13:30 Albumin 3.5 g/dL (3.4-5.0) 10/01/19 13:30 Triglycerides 62 mg/dL (<150) 10/02/19 06:07 Total Cholesterol 86 mg/dL (<200) 10/02/19 06:07 LDL Cholesterol, Calc 38 mg/dL (<100) 10/02/19 06:07 HDL Cholesterol 36 mg/dL (40-60) L 10/02/19 06:07 25-OH Vitamin D Total 44.7 ng/ml (30-100) 10/04/19 05:25 Urine Color Red (Yellow) 10/03/19 13:32 Urine Clarity Cloudy (Clear) 10/03/19 13:32 Urine pH 7.0 (5-8) 10/03/19 13:32 Ur Specific [place] 1.020 (1.005-1.025) 10/03/19 13:32 Urine Protein 100 mg/dL (Negative) H 10/03/19 13:32 Urine Ketones Negative mg/dL (Negative) 10/03/19 13:32 Urine Blood Large (Negative) H 10/03/19 13:32 Urine Nitrite Positive (Negative) H 10/03/19 13:32 Urine Bilirubin Small (Negative) H 10/03/19 13:32 Urine Urobilinogen 0.2 EU/dL (Up TO 0.2) 10/03/19 13:32 Ur Leukocyte Esterase Large (Negative) H 10/03/19 13:32 Urine RBC HPF (0-2) 10/03/19 13:32 Urine WBC HPF (0-5) 10/03/19 13:32 Ur Epithelial Cells HPF (Negative) 10/03/19 13:32 Urine Crystals HPF (Negative) 10/03/19 13:32 Urine Bacteria HPF (Negative) 10/03/19 13:32 Urine Casts LPF (Negative) 10/03/19 13:32 Urine Mucus (Negative) 10/03/19 13:32 Ur Culture Indicated? Color interference 10/03/19 13:32 Urine Glucose Negative mg/dL (Negative) 10/03/19 13:32 COVID-19 PCR Negative (Negative) 10/01/19 17:55 Nasopharyn COVID-19 PCR Not Applicable 10/01/19 17:55 [facility] 10/01/19 17:55
[2019-10-05 22:39] LABS: Sodium 120 mmol/L (136-145)
[2019-10-05 23:41] VITALS: BP 106/52; PULSE 68; RESP 17; TEMP 36.2; O2SAT 96
[2019-10-06] MEDS: dilTIAZem 30 MG TAB PO ×3 (02:12→13:54)
[2019-10-06 03:30] VITALS: BP 121/68; PULSE 77; RESP 18; TEMP 36.7; O2SAT 97
[2019-10-06] MEDS: Refresh PLUS Eye Drops 0.4ml 1 EACH OU ×5 (04:28→20:02)
[2019-10-06] MEDS: Sodium Zirconium Cyclosilicate 10 GM PKT PO ×3 (06:06→21:55)
[2019-10-06] MEDS: Normal Saline 1,000 ML 75 ML IV (06:29)
[2019-10-06 07:45] VITALS: BP 98/54; PULSE 69; RESP 15; TEMP 36.4; O2SAT 94
[2019-10-06 08:25] LABS: Abs Immature Grans 0.03 k/cumm (0.0-0.09); Absolute Basophil Count 0.01 k/cumm (0.0-0.2); Absolute Eosinophil Count 0.03 k/cumm (0.0-0.7); Basophils % 0.1; Eosinophils % 0.2; HCT 26.4 % (36.0-46.0); HGB 8.9 g/dL (12.0-15.5); Immature Grans % 0.2 %; Lymphocytes % 11.6; Mean Corp. HGB Concentration 33.7 g/dL (32.0-36.0); Mean Corpuscular Hemoglobin 29.2 pg (27.0-33.0); Mean Corpuscular Volume 86.6 fL (80-95); Mean Platelet Volume 13.6 fL (8.0-11.0); Monocytes % 12.1; Neutrophils % 75.8; Platelet Count 134 x1000/uL (130-400); RBC 3.05 m/cumm (4.00-5.20); White Blood Cell Count 14.01 k/cumm (4.4-10.8)
[2019-10-06 08:32] LABS: Absolute Lymphocyte Count 1.63 k/cumm (1.2-3.4); Absolute Neutrophil Count 10.62 k/cumm (1.2-6.7); Anion Gap 8.8 mmol/L (3-11); BUN 52 mg/dL (7-18); CO2 26.2 mmol/L (21.0-32.0); Calcium 8.1 mg/dL (8.5-10.1); Chloride 89 mmol/L (98-107); Glucose 139 mg/dL (74-106); Magnesium 1.9 mg/dL (1.8-2.4); Potassium 3.9 mmol/L (3.5-5.1)
[2019-10-06 08:39] LABS: INR 1.1 (0.9-1.1); PTT Activated 54.8 sec (21.0-31.4); Prothrombin Time 10.9 sec (9.3-11.0)
[2019-10-06 08:43] LABS: Sodium 124 mmol/L (136-145)
[2019-10-06 08:55] LABS: Diff Comment Agrees w/ Instrument; Poikilocytes 1+; Polychromasia Present
[2019-10-06] MEDS: fentaNYL 25 MCG PATCH TD (09:07)
[2019-10-06] MEDS: Insulin Aspart 300 UNITS/3 ML PEN SC ×4 (09:07→21:55)
[2019-10-06] MEDS: Aspirin E.C. 81 MG TABEC PO (09:08)
[2019-10-06] MEDS: Docusate Sodium 100 MG CAP PO ×2 (09:09→20:02)
[2019-10-06] MEDS: Pantoprazole 40 MG TABCR PO (09:09)
[2019-10-06] MEDS: Multivitamin TAB 1 TAB PO (09:09)
[2019-10-06] MEDS: cefTRIAXone 1 GM/50 ML BAG IVPB (09:53)
[2019-10-06] MEDS: Normal Saline Flush 10 ML SYR IVP (10:54)
--- NOTE | 2019-10-06 11:07 | W.PM.PROGNOT ---
Documented by User: Ayaan Stovall MD 10/07/19 14:31 Assessment and Plan Assessment and plan (1) Fracture of head of right femur: Status: Chronic Assessment and plan: Progress has been as expected. Doing well with pain and has started to mobilize with PT. Will likely need SNF d/c. Continue to mobilize - WBAT with assistance. May begin DOAC when medically cleared. Qualifiers: Encounter type: initial encounter Fracture type: closed Qualified Code(s): S72.051A - Unspecified fracture of head of right femur, initial encounter for closed fracture (2) Postoperative anemia due to acute blood loss: Status: Acute Assessment and plan: Hgb is stable. No acute concerns. Subjective Subjective Interval history since last seen: Linda denies any significant pain of the right hip. Exam Narrative Exam Narrative: Right hip dressing is c/d/i. Ecchymosis present. Thigh is soft. No significant pain with internal or external rotation of the hip. Objective Objective Clinical Data: Abnormal lab results 10/05/19 10/05/19 10/05/19 Range/Units 08:20 12:54 12:54 WBC (4.4-10.8) k/cumm RBC (4.00-5.20) m/cumm Hgb (12.0-15.5) g/dL Hct (36.0-46.0) % MPV (8.0-11.0) fL Absolute Neutrophils (1.2-6.7) k/cumm Absolute Monocytes (0.11-0.7) k/cumm APTT 80.4 H* D (21.0-31.4) sec Sodium 122 L* 119 L* (136-145) mmol/L Potassium 5.3 H (3.5-5.1) mmol/L Chloride 89 L 86 L (98-107) mmol/L BUN 44 H 51 H (7-18) mg/dL Creatinine 1.93 H 2.01 H (0.55-1.02) mg/dL Glucose 192 H 314 H D (74-106) mg/dL Calcium (8.5-10.1) mg/dL 10/05/19 10/05/19 10/05/19 Range/Units 16:23 21:00 21:00 WBC (4.4-10.8) k/cumm RBC (4.00-5.20) m/cumm Hgb (12.0-15.5) g/dL Hct (36.0-46.0) % MPV (8.0-11.0) fL Absolute Neutrophils (1.2-6.7) k/cumm Absolute Monocytes (0.11-0.7) k/cumm APTT 60.4 H D (21.0-31.4) sec Sodium 119 L* 120 L* (136-145) mmol/L Potassium (3.5-5.1) mmol/L Chloride 87 L 88 L (98-107) mmol/L BUN 54 H 55 H (7-18) mg/dL Creatinine 2.02 H 1.93 H (0.55-1.02) mg/dL Glucose 257 H 244 H (74-106) mg/dL Calcium 8.3 L 8.3 L (8.5-10.1) mg/dL 10/06/19 10/06/19 10/06/19 Range/Units 07:44 07:44 07:44 WBC 14.01 H (4.4-10.8) k/cumm RBC 3.05 L (4.00-5.20) m/cumm Hgb 8.9 L (12.0-15.5) g/dL Hct 26.4 L (36.0-46.0) % MPV 13.6 H (8.0-11.0) fL Absolute Neutrophils 10.62 H (1.2-6.7) k/cumm Absolute Monocytes 1.70 H (0.11-0.7) k/cumm APTT 54.8 H (21.0-31.4) sec Sodium 124 L* (136-145) mmol/L Potassium (3.5-5.1) mmol/L Chloride 89 L (98-107) mmol/L BUN 52 H (7-18) mg/dL Creatinine 1.70 H (0.55-1.02) mg/dL Glucose 139 H D (74-106) mg/dL Calcium 8.1 L (8.5-10.1) mg/dL Vital Signs Temperature 36.4 C L 10/06/19 07:45 Temperature Source Tympanic 10/06/19 07:45 Pulse 69 10/06/19 07:45 Pulse Rhythm Regular 10/06/19 04:13 Pulse 79 10/04/19 10:00 Respiratory Rate 15 10/06/19 07:45 Respiratory Effort Non-Labored 10/06/19 04:13 Respiratory Depth Normal 10/06/19 04:13 Respiratory Pattern Normal 10/06/19 04:13 Blood Pressure 98/54 L 10/06/19 07:45 Blood Pressure Mean 59 10/04/19 07:22 Blood Pressure Position Supine 10/03/19 03:45 Pulse Oximetry 94 L 10/06/19 07:45 Respiratory End-tidal CO2 32 10/04/19 15:42 Oxygen Delivery Method Room Air 10/06/19 07:45 Oxygen Flow Rate 0 10/06/19 07:45 Pain Level 0 10/06/19 07:45 Comment 10/05/19 23:41 Intake & Output 10/05/19 10/05/19 10/06/19 11:59 23:59 11:59 Intake Total 333.7 / 2007.766 1675.066 / 2007.766 1581.25 / 1581.25 Output Total 375 / 1450 1075 / 1450 500 / 500 Balance -41.3 / 558.766 600.066 / 847.725 0698.25 / 1081.25 Weight 70.2 kg 70.5 kg Intake: IV 93.7 / 4438.225 9810.066 / 1645.505 1852.25 / 1341.25 Oral 240 / 870 630 / 870 240 / 240 Output: Urine 375 / 1450 1075 / 1450 500 / 500 Other: Urine Color Yellow Yellow Yellow Urine Appearance Clear Clear Clear Comment No sign of hematuria at this time. Voiding Methods Indwelling Catheter Indwelling Catheter Laboratory Results WBC 14.01 k/cumm (4.4-10.8) H 10/06/19 07:44 RBC 3.05 m/cumm (4.00-5.20) L 10/06/19 07:44 Hgb 8.9 g/dL (12.0-15.5) L 10/06/19 07:44 Hct 26.4 % (36.0-46.0) L 10/06/19 07:44 MCV 86.6 fL (80-95) 10/06/19 07:44 MCH 29.2 pg (27.0-33.0) 10/06/19 07:44 MCHC 33.7 g/dL (32.0-36.0) 10/06/19 07:44 RDW 14.0 % (11.7-14.6) 10/06/19 07:44 Plt Count 134 x1000/uL (130-400) 10/06/19 07:44 MPV 13.6 fL (8.0-11.0) H 10/06/19 07:44 Immature Gran % 0.2 % 10/06/19 07:44 Neutrophils % 75.8 10/06/19 07:44 Lymphocytes % 11.6 10/06/19 07:44 Monocytes % 12.1 10/06/19 07:44 Eosinophils % 0.2 10/06/19 07:44 Basophils % 0.1 10/06/19 07:44 Absolute Neutrophils 10.62 k/cumm (1.2-6.7) H 10/06/19 07:44 Absolute Lymphocytes 1.63 k/cumm (1.2-3.4) 10/06/19 07:44 Absolute Monocytes 1.70 k/cumm (0.11-0.7) H 10/06/19 07:44 Absolute Eosinophils 0.03 k/cumm (0.0-0.7) 10/06/19 07:44 Absolute Basophils 0.01 k/cumm (0.0-0.2) 10/06/19 07:44 Differential Comment Agrees w/ instrument 10/06/19 07:44 RBC Morphology See below 10/06/19 07:44 Polychromasia Present 10/06/19 07:44 Poikilocytosis 1+ 10/06/19 07:44 Anisocytosis 1+ 10/05/19 04:00 PT 10.9 sec (9.3-11.0) 10/06/19 07:44 INR 1.1 (0.9-1.1) 10/06/19 07:44 APTT 54.8 sec (21.0-31.4) H 10/06/19 07:44 Sodium 124 mmol/L (136-145) L* 10/06/19 07:44 Potassium 3.9 mmol/L (3.5-5.1) 10/06/19 07:44 Chloride 89 mmol/L (98-107) L 10/06/19 07:44 Carbon Dioxide 26.2 mmol/L (21.0-32.0) 10/06/19 07:44 Anion Gap 8.8 mmol/L (3-11) 10/06/19 07:44 BUN 52 mg/dL (7-18) H 10/06/19 07:44 Creatinine 1.70 mg/dL (0.55-1.02) H 10/06/19 07:44 Estimated GFR/1.73 m2 28.70 (mL/min/1.73m2) 10/06/19 07:44 Glucose 139 mg/dL (74-106) H D 10/06/19 07:44 Hemoglobin A1c 7.7 % (3.8-5.6) H 10/01/19 13:30 Calcium 8.1 mg/dL (8.5-10.1) L 10/06/19 07:44 Magnesium 1.9 mg/dL (1.8-2.4) 10/06/19 07:44 Total Bilirubin 0.6 mg/dL (0.2-1.0) 10/01/19 13:30 AST 21 U/L (15-37) 10/01/19 13:30 ALT 20 U/L (14-59) 10/01/19 13:30 Alkaline Phosphatase 77 U/L (46-116) 10/01/19 13:30 Creatine Kinase 188 U/L (26-192) 10/05/19 08:20 Troponin I < 0.05 ng/mL (<0.06) 10/05/19 12:54 NT-Pro-B Natriuret Pep 1785 pg/mL (<300) H 10/01/19 13:30 Total Protein 7.9 g/dL (6.4-8.2) 10/01/19 13:30 Albumin 3.5 g/dL (3.4-5.0) 10/01/19 13:30 Triglycerides 62 mg/dL (<150) 10/02/19 06:07 Total Cholesterol 86 mg/dL (<200) 10/02/19 06:07 LDL Cholesterol, Calc 38 mg/dL (<100) 10/02/19 06:07 HDL Cholesterol 36 mg/dL (40-60) L 10/02/19 06:07 25-OH Vitamin D Total 44.7 ng/ml (30-100) 10/04/19 05:25 Urine Color Red (Yellow) 10/03/19 13:32 Urine Clarity Cloudy (Clear) 10/03/19 13:32 Urine pH 7.0 (5-8) 10/03/19 13:32 Ur Specific [place] 1.020 (1.005-1.025) 10/03/19 13:32 Urine Protein 100 mg/dL (Negative) H 10/03/19 13:32 Urine Ketones Negative mg/dL (Negative) 10/03/19 13:32 Urine Blood Large (Negative) H 10/03/19 13:32 Urine Nitrite Positive (Negative) H 10/03/19 13:32 Urine Bilirubin Small (Negative) H 10/03/19 13:32 Urine Urobilinogen 0.2 EU/dL (Up TO 0.2) 10/03/19 13:32 Ur Leukocyte Esterase Large (Negative) H 10/03/19 13:32 Urine RBC HPF (0-2) 10/03/19 13:32 Urine WBC HPF (0-5) 10/03/19 13:32 Ur Epithelial Cells HPF (Negative) 10/03/19 13:32 Urine Crystals HPF (Negative) 10/03/19 13:32 Urine Bacteria HPF (Negative) 10/03/19 13:32 Urine Casts LPF (Negative) 10/03/19 13:32 Urine Mucus (Negative) 10/03/19 13:32 Ur Culture Indicated? Color interference 10/03/19 13:32 Urine Glucose Negative mg/dL (Negative) 10/03/19 13:32 COVID-19 PCR Negative (Negative) 10/01/19 17:55 Nasopharyn COVID-19 PCR Not Applicable 10/01/19 17:55 Ref Test Perform [facility] 10/01/19 17:55 Documented by User: David Grubbs MD 10/06/19 13:45 Date of Service Date of service: 10/06/19 Time of Service: 13:44
--- NOTE | 2019-10-06 11:09 | PT.INTREAT ---
PT Notes Visit Reasons: RAPID AFIB,OLD R HIP FX Inpatient Physical Therapy Treatment Note [facility] Date: 10/06/19 PRECAUTIONS:R LE DVT S/P DARIEL OBJECTIVE: Supine-sit: Min/Modx2 Sit-supine: [] Sit-stand: CGAx2 Stand-sit: CGAx2 GAIT Assistive Device: FWW Weight bearing: WBAT R LE Assist: CGA and vc's Distance: 6 steps to the chair THEREX: Pt completed LE strengthening ther ex as per flow sheet. STAIRS:[] ASSESSMENT: Pt tolerated today's session well. Pt had to place one hand lower on the walker under the handle to walk and was more forward flexed while ambulating. Pt seems to have the most difficulty with getting OOB. PLAN: Cont as per PT POC. TREATMENT CODE/TIME: 01-04:30 (30) MICHAEL CONLEY
--- NOTE | 2019-10-06 11:23 | PDOC.CMPRO ---
- If Service Date Differs Date of service: 10/06/19 Time of Service: 11:23 Care Management Progress Note S/O: Linda was reviewed at interdisciplinary rounds. Per report, SNF placement is recommended for continued rehab prior to returning home. Referrals have been sent to [facility] and the [facility] by CM, and are currently under review. She will likely transition to rehab early next week. CM will continue to follow. A: Linda is an 84 year old female admitted to [facility] on 10/01/19 for Rapid afib, CHF, history of fracture of the right femur to be repaired. P: Linda had a right total hip arthroplasty yesterday. She will need short term rehab and has agreed to have referrals sent to [facility] and [facility]. These were completed and faxed by CM . No bed offer has been received as yet. Transportation pending disposition. CM to continue to support patient and assess for discharge needs and coordinate disposition.
[2019-10-06 11:52] VITALS: BP 105/57; PULSE 69; RESP 17; TEMP 37.1; O2SAT 95
[2019-10-06 13:54] VITALS: PULSE 72
--- NOTE | 2019-10-06 14:43 | W.PM.PROGNOT ---
Date of Service Date of service: 10/06/19 Time of Service: 14:43 Assessment and Plan Assessment and plan (1) Fracture of head of right femur: Status: Chronic Assessment and plan: s/p total hip 10/04/[address] Stovall. Continue PT/OT. Will likely require SNF on discharge. [facility] place [facility] and to [facility]. Qualifiers: Encounter type: initial encounter Fracture type: closed Qualified Code(s): S72.051A - Unspecified fracture of head of right femur, initial encounter for closed fracture (2) Paroxysmal atrial fibrillation with RVR: Status: Acute Assessment and plan: rates much better on short acting diltiazem and metoprolol. I am going to switch her to long acting Toprol XL and Diltiazem CD. Apparently her post tib DVT was developed while on warfarin, therefore I am going to switch her to Apixaban. (3) Acute on chronic systolic heart failure: Status: Acute Assessment and plan: recently worsened by her PAF/RVR but now improved since her rate has been controlled and her furosemide was increased. will recheck labs in the a.m. (4) Acute deep vein thrombosis (DVT) of right lower extremity: Status: Acute Assessment and plan: Distal (right posterior tibial vein), unclear if it is acute or chronic, developed while on coumadin - i.e. coumadin failure. Continue heparin gtt until H/H stable, then transition to a DOAC . Will transition to Apixaban this evening (5) Hyponatremia: Status: Acute Assessment and plan: I think that her hyponatremia is secondary to her CHF; there may be a component of SIADH however, she does not need iv fluids and iv lasix at the same time. I have dc her iv fluids. I will restrict her po fluids and resume her lasix this evening (held this a.m. d/t low BP readings). (6) UTI (urinary tract infection): Status: Acute Assessment and plan: Due to E. Coli, Unclear if this was present on admission. Pansensitive. Switched to IV ceftriaxone from periop cefazolin. Can dc her ceftriaxone for oral antibiotics (keflex) (7) Corneal abrasion, right: Status: Suspected Assessment and plan: Significantly better today. Continue jarret ointment at night and lubricating drops during the day. (8) DVT prophylaxis: Status: Acute Assessment and plan: heparin gtt changed to Apixaban (9) Discharge planning issues: Status: Acute Assessment and plan: DNR/DNI Continues to require hospitalization. Anticipate discharge to SNF when medically ready (probably early next week). Subjective Subjective Interval history since last seen: Patient has no or little hip/leg pain while at rest but moderate discomfort w/ transfers/ambulation. She [facility]. CM has placed referrals to [facility]. She has no dyspnea and no CP. Per STAFF TOXICOLOGISTdriver's license reviewing officer of telemetry her rhythm has been afib 68 to 103 bpm overnight w/ highest in the 130's with activity. However today she appears to be in aflutter at controlled rate in the 60's to 70's with 3:1 AV conduction. Patient had venous duplex study done last week that demonstrated a right proximal posterior tibial vein thrombosis but no deep venous thromobis. She is currently on heparin drip. Prior to her surgery she was on coumadin 2.5 mg daily. I am going to restart her warfarin. Exam Narrative Exam Narrative: Elderly female sitting up in her chair alert and oriented person place time circumstance. In no distress. Lungs reveal bibasilar rales no rhonchi or wheezes. Heart is regular no S3 or S4 gallop. No appreciable murmur. Abdomen soft nontender nondistended normal active bowel sounds no palpable masses no organomegaly. Lower extremities with 1+ pitting edema bilaterally over feet and ankles. Right thigh it looks a little more swollen than the left. Wound has a dressing over it there is no induration or ecchymosis around the dressing and no redness. Objective Objective Clinical Data: Abnormal lab results 10/05/19 10/05/19 10/05/19 Range/Units 16:23 21:00 21:00 WBC (4.4-10.8) k/cumm RBC (4.00-5.20) m/cumm Hgb (12.0-15.5) g/dL Hct (36.0-46.0) % MPV (8.0-11.0) fL Absolute Neutrophils (1.2-6.7) k/cumm Absolute Monocytes (0.11-0.7) k/cumm APTT 60.4 H D (21.0-31.4) sec Sodium 119 L* 120 L* (136-145) mmol/L Chloride 87 L 88 L (98-107) mmol/L BUN 54 H 55 H (7-18) mg/dL Creatinine 2.02 H 1.93 H (0.55-1.02) mg/dL Glucose 257 H 244 H (74-106) mg/dL Calcium 8.3 L 8.3 L (8.5-10.1) mg/dL 10/06/19 10/06/19 10/06/19 Range/Units 07:44 07:44 07:44 WBC 14.01 H (4.4-10.8) k/cumm RBC 3.05 L (4.00-5.20) m/cumm Hgb 8.9 L (12.0-15.5) g/dL Hct 26.4 L (36.0-46.0) % MPV 13.6 H (8.0-11.0) fL Absolute Neutrophils 10.62 H (1.2-6.7) k/cumm Absolute Monocytes 1.70 H (0.11-0.7) k/cumm APTT 54.8 H (21.0-31.4) sec Sodium 124 L* (136-145) mmol/L Chloride 89 L (98-107) mmol/L BUN 52 H (7-18) mg/dL Creatinine 1.70 H (0.55-1.02) mg/dL Glucose 139 H D (74-106) mg/dL Calcium 8.1 L (8.5-10.1) mg/dL Vital Signs Temperature 37.1 C 10/06/19 11:52 Temperature Source Tympanic 10/06/19 11:52 Pulse 72 10/06/19 13:54 Pulse Rhythm Regular 10/06/19 04:13 Pulse 79 10/04/19 10:00 Respiratory Rate 17 10/06/19 11:52 Respiratory Effort Non-Labored 10/06/19 04:13 Respiratory Depth Normal 10/06/19 04:13 Respiratory Pattern Normal 10/06/19 04:13 Blood Pressure 105/57 L 10/06/19 11:52 Blood Pressure Mean 59 10/04/19 07:22 Blood Pressure Position Supine 10/03/19 03:45 Pulse Oximetry 95 10/06/19 11:52 Respiratory End-tidal CO2 32 10/04/19 15:42 Oxygen Delivery Method Room Air 10/06/19 11:52 Oxygen Flow Rate 0 10/06/19 11:52 Pain Level 0 10/06/19 12:50 Comment 10/06/19 13:54 Intake & Output 10/05/19 10/06/19 10/06/19 23:59 11:59 23:59 Intake Total 1675.066 / 2008.766 1581.25 / 2131.25 550 / 2131.25 Output Total 1075 / 1450 500 / 500 Balance 600.066 / 377.549 2003.25 / 1631.25 550 / 1631.25 Weight 70.5 kg Intake: IV 1045.066 / 4191.384 0405.25 / 1341.25 Oral 630 / 870 240 / 790 550 / 790 Output: Urine 1075 / 1450 500 / 500 Other: Urine Color Yellow Yellow Urine Appearance Clear Clear Voiding Methods Indwelling Catheter Laboratory Results WBC 14.01 k/cumm (4.4-10.8) H 10/06/19 07:44 RBC 3.05 m/cumm (4.00-5.20) L 10/06/19 07:44 Hgb 8.9 g/dL (12.0-15.5) L 10/06/19 07:44 Hct 26.4 % (36.0-46.0) L 10/06/19 07:44 MCV 86.6 fL (80-95) 10/06/19 07:44 MCH 29.2 pg (27.0-33.0) 10/06/19 07:44 MCHC 33.7 g/dL (32.0-36.0) 10/06/19 07:44 RDW 14.0 % (11.7-14.6) 10/06/19 07:44 Plt Count 134 x1000/uL (130-400) 10/06/19 07:44 MPV 13.6 fL (8.0-11.0) H 10/06/19 07:44 Immature Gran % 0.2 % 10/06/19 07:44 Neutrophils % 75.8 10/06/19 07:44 Lymphocytes % 11.6 10/06/19 07:44 Monocytes % 12.1 10/06/19 07:44 Eosinophils % 0.2 10/06/19 07:44 Basophils % 0.1 10/06/19 07:44 Absolute Neutrophils 10.62 k/cumm (1.2-6.7) H 10/06/19 07:44 Absolute Lymphocytes 1.63 k/cumm (1.2-3.4) 10/06/19 07:44 Absolute Monocytes 1.70 k/cumm (0.11-0.7) H 10/06/19 07:44 Absolute Eosinophils 0.03 k/cumm (0.0-0.7) 10/06/19 07:44 Absolute Basophils 0.01 k/cumm (0.0-0.2) 10/06/19 07:44 Differential Comment Agrees w/ instrument 10/06/19 07:44 RBC Morphology See below 10/06/19 07:44 Polychromasia Present 10/06/19 07:44 Poikilocytosis 1+ 10/06/19 07:44 Anisocytosis 1+ 10/05/19 04:00 PT 10.9 sec (9.3-11.0) 10/06/19 07:44 INR 1.1 (0.9-1.1) 10/06/19 07:44 APTT 54.8 sec (21.0-31.4) H 10/06/19 07:44 Sodium 124 mmol/L (136-145) L* 10/06/19 07:44 Potassium 3.9 mmol/L (3.5-5.1) 10/06/19 07:44 Chloride 89 mmol/L (98-107) L 10/06/19 07:44 Carbon Dioxide 26.2 mmol/L (21.0-32.0) 10/06/19 07:44 Anion Gap 8.8 mmol/L (3-11) 10/06/19 07:44 BUN 52 mg/dL (7-18) H 10/06/19 07:44 Creatinine 1.70 mg/dL (0.55-1.02) H 10/06/19 07:44 Estimated GFR/1.73 m2 28.70 (mL/min/1.73m2) 10/06/19 07:44 Glucose 139 mg/dL (74-106) H D 10/06/19 07:44 Hemoglobin A1c 7.7 % (3.8-5.6) H 10/01/19 13:30 Calcium 8.1 mg/dL (8.5-10.1) L 10/06/19 07:44 Magnesium 1.9 mg/dL (1.8-2.4) 10/06/19 07:44 Total Bilirubin 0.6 mg/dL (0.2-1.0) 10/01/19 13:30 AST 21 U/L (15-37) 10/01/19 13:30 ALT 20 U/L (14-59) 10/01/19 13:30 Alkaline Phosphatase 77 U/L (46-116) 10/01/19 13:30 Creatine Kinase 188 U/L (26-192) 10/05/19 08:20 Troponin I < 0.05 ng/mL (<0.06) 10/05/19 12:54 NT-Pro-B Natriuret Pep 1785 pg/mL (<300) H 10/01/19 13:30 Total Protein 7.9 g/dL (6.4-8.2) 10/01/19 13:30 Albumin 3.5 g/dL (3.4-5.0) 10/01/19 13:30 Triglycerides 62 mg/dL (<150) 10/02/19 06:07 Total Cholesterol 86 mg/dL (<200) 10/02/19 06:07 LDL Cholesterol, Calc 38 mg/dL (<100) 10/02/19 06:07 HDL Cholesterol 36 mg/dL (40-60) L 10/02/19 06:07 25-OH Vitamin D Total 44.7 ng/ml (30-100) 10/04/19 05:25 Urine Color Red (Yellow) 10/03/19 13:32 Urine Clarity Cloudy (Clear) 10/03/19 13:32 Urine pH 7.0 (5-8) 10/03/19 13:32 Ur Specific [place] 1.020 (1.005-1.025) 10/03/19 13:32 Urine Protein 100 mg/dL (Negative) H 10/03/19 13:32 Urine Ketones Negative mg/dL (Negative) 10/03/19 13:32 Urine Blood Large (Negative) H 10/03/19 13:32 Urine Nitrite Positive (Negative) H 10/03/19 13:32 Urine Bilirubin Small (Negative) H 10/03/19 13:32 Urine Urobilinogen 0.2 EU/dL (Up TO 0.2) 10/03/19 13:32 Ur Leukocyte Esterase Large (Negative) H 10/03/19 13:32 Urine RBC HPF (0-2) 10/03/19 13:32 Urine WBC HPF (0-5) 10/03/19 13:32 Ur Epithelial Cells HPF (Negative) 10/03/19 13:32 Urine Crystals HPF (Negative) 10/03/19 13:32 Urine Bacteria HPF (Negative) 10/03/19 13:32 Urine Casts LPF (Negative) 10/03/19 13:32 Urine Mucus (Negative) 10/03/19 13:32 Ur Culture Indicated? Color interference 10/03/19 13:32 Urine Glucose Negative mg/dL (Negative) 10/03/19 13:32 COVID-19 PCR Negative (Negative) 10/01/19 17:55 Nasopharyn COVID-19 PCR Not Applicable 10/01/19 17:55 Ref Test Perform Site [place] [facility] 10/01/19 17:55
[2019-10-06 15:48] VITALS: BP 115/69; PULSE 69; RESP 16; TEMP 36.8; O2SAT 99
[2019-10-06 19:46] VITALS: BP 143/64; PULSE 75; RESP 18; TEMP 36.2; O2SAT 96
[2019-10-06] MEDS: Cephalexin 500 MG CAP PO (20:02)
[2019-10-06] MEDS: dilTIAZem CD 180 MG CAPCR PO (21:54)
[2019-10-06] MEDS: Insulin Glargine 300 UNITS/3 ML PEN 12 UNITS SC (21:55)
[2019-10-06] MEDS: Apixaban 5 MG TAB 2.5 MG PO (22:39)
[2019-10-07] VITALS: BP 110/50; PULSE 75; RESP 17; TEMP 36.6; O2SAT 96
[2019-10-07] MEDS: Refresh PLUS Eye Drops 0.4ml 1 EACH OU ×7 (01:08→23:54)
[2019-10-07 04:14] VITALS: BP 120/60; PULSE 90; RESP 17; TEMP 36.5; O2SAT 95
[2019-10-07] MEDS: Acetaminophen 325 MG TAB PO (06:38)
[2019-10-07 08:00] VITALS: BP 102/52; PULSE 89; RESP 15; TEMP 36.7; O2SAT 99
[2019-10-07] MEDS: Docusate Sodium 100 MG CAP PO ×2 (08:22→20:54)
[2019-10-07] MEDS: Aspirin E.C. 81 MG TABEC PO (08:22)
[2019-10-07] MEDS: Multivitamin TAB 1 TAB PO (08:22)
[2019-10-07] MEDS: Cephalexin 500 MG CAP PO ×2 (08:22→20:54)
[2019-10-07] MEDS: Insulin Aspart 300 UNITS/3 ML PEN SC ×5 (08:23→21:57)
[2019-10-07] MEDS: Pantoprazole 40 MG TABCR PO (08:23)
[2019-10-07] MEDS: Apixaban 2.5 MG TAB PO (08:23)
[2019-10-07 08:30] LABS: Anion Gap 8.5 mmol/L (3-11); BUN 43 mg/dL (7-18); CO2 25.5 mmol/L (21.0-32.0); CREATININE 1.32 mg/dL (0.55-1.02); Calcium 8.2 mg/dL (8.5-10.1); Chloride 89 mmol/L (98-107); Estimated GFR 38.43 (mL/min/1.73m2); Glucose 136 mg/dL (74-106); NT-proBNP 3056 pg/mL (<300); Potassium 3.4 mmol/L (3.5-5.1)
[2019-10-07 08:38] LABS: Sodium 123 mmol/L (136-145)
--- NOTE | 2019-10-07 09:00 | PDOC.CMPRO ---
- If Service Date Differs Date of service: 10/07/19 Time of Service: 09:00 Care Management Progress Note S/O: Linda was sitting up in a chair when CM met with her. She stated that she continues to feel well, although she had episodes of tachycardia overnight. Linda will be transferred to an area SNF (referrals have been sent) when medically ready, likely early this week. She shared that she is happy at [facility] and would not be at all disappointed if she remained here a few more days. She remains pleasant and interactive. CM will continue to follow. A: Linda is an 84 year old female admitted to [facility] on 10/01/19 for Rapid afib, CHF, history of fracture of the right femur to be repaired. P: Linda had a right total hip arthroplasty yesterday. She will need short term rehab and has agreed to have referrals sent to [facility] and [facility]. These were completed and faxed by CM . No bed offer has been received as yet. Transportation pending disposition. CM to continue to support patient and assess for discharge needs and coordinate disposition.
--- NOTE | 2019-10-07 10:40 | PT.INTREAT ---
PT Notes Visit Reasons: RAPID AFIB,OLD R HIP FX Inpatient Physical Therapy Treatment Note [facility] Date: 10/07/19 PRECAUTIONS: R LE DVT and DARIEL OBJECTIVE: Sit-stand: CGA Stand-sit: CGA GAIT Assistive Device: FWW Weight bearing: WBAT Assist: CGA Distance: 12 steps THEREX: Pt completed LE strengthening ther ex as per flow sheet. ASSESSMENT: Pt tolerated today's session well and was more confident with her ambulation. PLAN: Cont as per PT POC. TREATMENT CODE/TIME: 9:30-10:05 (35) MICHAEL TP
[2019-10-07 11:41] VITALS: BP 109/52; PULSE 80; RESP 16; TEMP 37.1; O2SAT 97
[2019-10-07] MEDS: Senna TAB 1 TAB PO (12:11)
[2019-10-07] MEDS: Milk of Magnesia 30 ML CUP PO (12:11)
--- NOTE | 2019-10-07 12:50 | PGE_ITS ---
Date of Service Date of service: 10/07/19 Time of Service: 12:50 Assessment and Plan Assessment and plan (1) Fracture of head of right femur: Status: Chronic Assessment and plan: s/p total hip 10/04/[address] Stovall. Continue PT/OT. Will likely require SNF on discharge. Per care management [facility] has accepted her and she is tentatively on schedule to be transferred tomorrow. Qualifiers: Encounter type: initial encounter Fracture type: closed Qualified Code(s): S72.051A - Unspecified fracture of head of right femur, initial encounter for closed fracture (2) Paroxysmal atrial fibrillation with RVR: Status: Acute Assessment and plan: Rates are better controlled on the long-acting diltiazem and metoprolol. Continue with apixaban (3) Acute on chronic systolic heart failure: Status: Acute Assessment and plan: recently worsened by her PAF/RVR. proBNP remains elevated at 3000 therefore she will likely need further IV Lasix today (4) Acute deep vein thrombosis (DVT) of right lower extremity: Status: Acute Assessment and plan: Distal (right posterior tibial vein), unclear if it is acute or chronic, developed while on coumadin - i.e. coumadin failure. Patient transition to apixaban yesterday evening (5) Hyponatremia: Status: Acute Assessment and plan: Her hyponatremia is secondary to her CHF, giving lasix and iv fluids would not be appropriate and explains why her BNP has risen along w/ the return of bibasilar rales. I had held her po lasix yesterday a.m. d/t hypotension, however, she now needs her lasix again. I am going to [facility] her a dose of iv lasix now then resume her oral lasix tomorrow a.m. This may hold up her dc to [facility] until Tuesday. (6) UTI (urinary tract infection): Status: Acute Assessment and plan: iv Rocephin changed to Keflex yesterday. (7) DVT prophylaxis: Status: Acute Assessment and plan: heparin gtt changed to Apixaban yesterday. (8) Diabetes mellitus: Status: Chronic Assessment and plan: poorly controlled. I have increased her Lantus from 12 units to 15 units nightly and adjusted her sliding scale Novolog to moderate dose. I have also added Novolog for her CHO coverage. (9) Discharge planning issues: Status: Acute Assessment and plan: DNR/DNI Continues to require hospitalization. Anticipate discharge to SNF when medically ready (probably early next week). Subjective Subjective Interval history since last seen: Overall the patient continues to improve. A. fib rate is under better control on the extended release diltiazem CD and Toprol-XL. Her renal function continues to improve her BUN is down to 43 creatinine 1.32. Potassium is dropped down to 3.4. Apparently she was on Lokelma through yesterday evening for potassium level that had peaked at 5.7. Because she is on furosemide I would give her a little bit of potassium supplementation to get her potassium level up to 4. With respect to her right hip pain that is improving. She is now on apixaban for DVT prevention as well as treatment of her chronic atrial fibrillation. Serum sodium is up to 123. She is on a 2 L fluid restriction in addition to her furosemide 40 mg twice daily. Her echocardiogram this admission showed mild left ventricular impairment with a systolic ejection fraction of 45 to 50% with anteroapical segmental hypokinesis. If her blood pressure can tolerate and her potassium level does not rise significantly I will try her on low-dose lisinopril 2.5 mg daily starting tomorrow. Otherwise we will continue with rate control with Toprol-XL 100 mg in the morning and diltiazem CD 180 mg at night. With respect to her blood sugars they have been less than optimally controlled fasting glucoses in the 1 50-1 60 range. Other blood sugar readings have been high as well throughout the day in the mid to upper 200s. I have adjusted her Lantus as well as her sliding scale. With respect to discharge planning were hoping to get her over to [facility] and rehab tomorrow. We may need to hold off until Tuesday depending on how her atrial fibrillation and blood pressure are doing and what her electrolytes are doing. Exam Narrative Exam Narrative: Elderly female sitting up in her chair watching TV. Lungs with bibasilar rales no rhonchi or wheezing. Heart is irregularly irregular but at a controlled rate Abdomen soft nontender with normal active bowel sounds no guarding. Objective Objective Clinical Data: Abnormal lab results 10/07/19 Range/Units 07:28 Sodium 123 L* (136-145) mmol/L Potassium 3.4 L (3.5-5.1) mmol/L Chloride 89 L (98-107) mmol/L BUN 43 H D (7-18) mg/dL Creatinine 1.32 H (0.55-1.02) mg/dL Glucose 136 H (74-106) mg/dL Calcium 8.2 L (8.5-10.1) mg/dL NT-Pro-B Natriuret Pep 3056 H (<300) pg/mL Vital Signs Temperature 37.1 C 10/07/19 11:41 Temperature Source Temporal Artery Scan 10/07/19 11:41 Pulse 80 10/07/19 11:41 Pulse Rhythm Regular 10/07/19 04:05 Pulse 79 10/04/19 10:00 Respiratory Rate 16 10/07/19 11:41 Respiratory Effort Non-Labored 10/07/19 04:05 Respiratory Depth Normal 10/07/19 04:05 Respiratory Pattern Normal 10/07/19 04:05 Blood Pressure 109/52 L 10/07/19 11:41 Blood Pressure Mean 59 10/04/19 07:22 Blood Pressure Position Supine 10/03/19 03:45 Pulse Oximetry 97 10/07/19 11:41 Respiratory End-tidal CO2 32 10/04/19 15:42 Oxygen Delivery Method Room Air 10/07/19 11:41 Oxygen Flow Rate 0 10/07/19 11:41 Pain Level 0 10/07/19 11:41 Comment 10/07/19 00:00 Intake & Output 10/06/19 10/07/19 10/07/19 23:59 11:59 23:59 Intake Total 1880.533 / 3471.783 560 / 560 Output Total 500 / 1300 500 / 500 Balance 1380.533 / 2171.783 60 / 60 Weight 74.9 kg Intake: IV 150.533 / 1501.783 Oral 1730 / 1970 560 / 560 Output: Urine 500 / 1300 500 / 500 Other: Urine Color Yellow Yellow Urine Appearance Clear Clear Urine Odor Normal Comment [place] catheter removed at this time per MD order. Kitty care performed. Pt. instructed to drink at least 8 oz of water q1hr until she voids. RN will reassess as necessary. Voiding Methods Bedside Commode Laboratory Results WBC 14.01 k/cumm (4.4-10.8) H 10/06/19 07:44 RBC 3.05 m/cumm (4.00-5.20) L 10/06/19 07:44 Hgb 8.9 g/dL (12.0-15.5) L 10/06/19 07:44 Hct 26.4 % (36.0-46.0) L 10/06/19 07:44 MCV 86.6 fL (80-95) 10/06/19 07:44 MCH 29.2 pg (27.0-33.0) 10/06/19 07:44 MCHC 33.7 g/dL (32.0-36.0) 10/06/19 07:44 RDW 14.0 % (11.7-14.6) 10/06/19 07:44 Plt Count 134 x1000/uL (130-400) 10/06/19 07:44 MPV 13.6 fL (8.0-11.0) H 10/06/19 07:44 Immature Gran % 0.2 % 10/06/19 07:44 Neutrophils % 75.8 10/06/19 07:44 Lymphocytes % 11.6 10/06/19 07:44 Monocytes % 12.1 10/06/19 07:44 Eosinophils % 0.2 10/06/19 07:44 Basophils % 0.1 10/06/19 07:44 Absolute Neutrophils 10.62 k/cumm (1.2-6.7) H 10/06/19 07:44 Absolute Lymphocytes 1.63 k/cumm (1.2-3.4) 10/06/19 07:44 Absolute Monocytes 1.70 k/cumm (0.11-0.7) H 10/06/19 07:44 Absolute Eosinophils 0.03 k/cumm (0.0-0.7) 10/06/19 07:44 Absolute Basophils 0.01 k/cumm (0.0-0.2) 10/06/19 07:44 Differential Comment Agrees w/ instrument 10/06/19 07:44 RBC Morphology See below 10/06/19 07:44 Polychromasia Present 10/06/19 07:44 Poikilocytosis 1+ 10/06/19 07:44 Anisocytosis 1+ 10/05/19 04:00 PT 10.0 sec (9.3-11.0) 10/07/19 07:28 INR 1.0 (0.9-1.1) 10/07/19 07:28 APTT 54.8 sec (21.0-31.4) H 10/06/19 07:44 Sodium 123 mmol/L (136-145) L* 10/07/19 07:28 Potassium 3.4 mmol/L (3.5-5.1) L 10/07/19 07:28 Chloride 89 mmol/L (98-107) L 10/07/19 07:28 Carbon Dioxide 25.5 mmol/L (21.0-32.0) 10/07/19 07:28 Anion Gap 8.5 mmol/L (3-11) 10/07/19 07:28 BUN 43 mg/dL (7-18) H D 10/07/19 07:28 Creatinine 1.32 mg/dL (0.55-1.02) H 10/07/19 07:28 Estimated GFR/1.73 m2 38.43 (mL/min/1.73m2) 10/07/19 07:28 Glucose 136 mg/dL (74-106) H 10/07/19 07:28 Hemoglobin A1c 7.7 % (3.8-5.6) H 10/01/19 13:30 Calcium 8.2 mg/dL (8.5-10.1) L 10/07/19 07:28 Magnesium 1.9 mg/dL (1.8-2.4) 10/06/19 07:44 Total Bilirubin 0.6 mg/dL (0.2-1.0) 10/01/19 13:30 AST 21 U/L (15-37) 10/01/19 13:30 ALT 20 U/L (14-59) 10/01/19 13:30 Alkaline Phosphatase 77 U/L (46-116) 10/01/19 13:30 Creatine Kinase 188 U/L (26-192) 10/05/19 08:20 Troponin I < 0.05 ng/mL (<0.06) 10/05/19 12:54 NT-Pro-B Natriuret Pep 3056 pg/mL (<300) H 10/07/19 07:28 Total Protein 7.9 g/dL (6.4-8.2) 10/01/19 13:30 Albumin 3.5 g/dL (3.4-5.0) 10/01/19 13:30 Triglycerides 62 mg/dL (<150) 10/02/19 06:07 Total Cholesterol 86 mg/dL (<200) 10/02/19 06:07 LDL Cholesterol, Calc 38 mg/dL (<100) 10/02/19 06:07 HDL Cholesterol 36 mg/dL (40-60) L 10/02/19 06:07 25-OH Vitamin D Total 44.7 ng/ml (30-100) 10/04/19 05:25 Urine Color Red (Yellow) 10/03/19 13:32 Urine Clarity Cloudy (Clear) 10/03/19 13:32 Urine pH 7.0 (5-8) 10/03/19 13:32 Ur Specific [place] 1.020 (1.005-1.025) 10/03/19 13:32 Urine Protein 100 mg/dL (Negative) H 10/03/19 13:32 Urine Ketones Negative mg/dL (Negative) 10/03/19 13:32 Urine Blood Large (Negative) H 10/03/19 13:32 Urine Nitrite Positive (Negative) H 10/03/19 13:32 Urine Bilirubin Small (Negative) H 10/03/19 13:32 Urine Urobilinogen 0.2 EU/dL (Up TO 0.2) 10/03/19 13:32 Ur Leukocyte Esterase Large (Negative) H 10/03/19 13:32 Urine RBC HPF (0-2) 10/03/19 13:32 Urine WBC HPF (0-5) 10/03/19 13:32 Ur Epithelial Cells HPF (Negative) 10/03/19 13:32 Urine Crystals HPF (Negative) 10/03/19 13:32 Urine Bacteria HPF (Negative) 10/03/19 13:32 Urine Casts LPF (Negative) 10/03/19 13:32 Urine Mucus (Negative) 10/03/19 13:32 Ur Culture Indicated? Color interference 10/03/19 13:32 Urine Glucose Negative mg/dL (Negative) 10/03/19 13:32 COVID-19 PCR Negative (Negative) 10/01/19 17:55 Nasopharyn COVID-19 PCR Not Applicable 10/01/19 17:55 Ref Test Perform Site [facility] lab 10/01/19 17:55
[2019-10-07 13:17] LABS: Abs Immature Grans 0.04 k/cumm (0.0-0.09); Absolute Basophil Count 0.02 k/cumm (0.0-0.2); Absolute Eosinophil Count 0.19 k/cumm (0.0-0.7); Absolute Lymphocyte Count 1.31 k/cumm (1.2-3.4); Absolute Monocyte Count 1.15 k/cumm (0.11-0.7); Absolute Neutrophil Count 8.23 k/cumm (1.2-6.7); Basophils % 0.2; Eosinophils % 1.7; HCT 25.5 % (36.0-46.0); HGB 8.6 g/dL (12.0-15.5); Immature Grans % 0.4 %; Mean Corp. HGB Concentration 33.7 g/dL (32.0-36.0); Mean Corpuscular Hemoglobin 29.2 pg (27.0-33.0); Mean Corpuscular Volume 86.4 fL (80-95); Monocytes % 10.5; Neutrophils % 75.2; Platelet Count 136 x1000/uL (130-400); RBC 2.95 m/cumm (4.00-5.20); RBC Distribution Width 13.8 % (11.7-14.6); White Blood Cell Count 10.94 k/cumm (4.4-10.8)
[2019-10-07] MEDS: Bisacodyl 10 MG SUPP PR (13:34)
[2019-10-07] MEDS: Furosemide 20 MG/2 ML VIAL IVP (14:32)
[2019-10-07] MEDS: Normal Saline Flush 10 ML SYR IVP (14:33)
[2019-10-07 15:57] VITALS: BP 136/61; PULSE 90; RESP 18; TEMP 36.6; O2SAT 97
[2019-10-07] MEDS: Potassium Chloride 20 MEQ TABCR PO (20:54)
[2019-10-07] MEDS: Apixaban 5 MG TAB PO (20:54)
[2019-10-07 21:50] VITALS: BP 140/62; PULSE 87; RESP 18; TEMP 36.3; O2SAT 97
[2019-10-07] MEDS: Insulin Glargine 300 UNITS/3 ML PEN 15 UNITS SC (21:56)
[2019-10-07] MEDS: dilTIAZem CD 180 MG CAPCR PO (21:56)
[2019-10-08 03:30] VITALS: BP 117/59; PULSE 85; RESP 17; TEMP 36.9; O2SAT 96
[2019-10-08] MEDS: Refresh PLUS Eye Drops 0.4ml 1 EACH OU ×6 (04:39→23:39)
[2019-10-08 07:26] LABS: HCT 26.8 % (36.0-46.0); HGB 9.1 g/dL (12.0-15.5); Mean Corpuscular Hemoglobin 29.4 pg (27.0-33.0); Mean Corpuscular Volume 86.5 fL (80-95); Platelet Count 189 x1000/uL (130-400); RBC Distribution Width 13.8 % (11.7-14.6); White Blood Cell Count 10.52 k/cumm (4.4-10.8)
[2019-10-08 07:45] LABS: BUN 36 mg/dL (7-18); CREATININE 1.35 mg/dL (0.55-1.02); Calcium 8.6 mg/dL (8.5-10.1); Chloride 89 mmol/L (98-107); Estimated GFR 37.45 (mL/min/1.73m2); Glucose 140 mg/dL (74-106); NT-proBNP 2947 pg/mL (<300); Sodium 125 mmol/L (136-145)
[2019-10-08] MEDS: Aspirin E.C. 81 MG TABEC PO (07:47)
[2019-10-08] MEDS: Cephalexin 500 MG CAP PO ×2 (07:47→19:42)
[2019-10-08] MEDS: Multivitamin TAB 1 TAB PO (07:47)
[2019-10-08] MEDS: Apixaban 5 MG TAB PO ×2 (07:48→19:42)
[2019-10-08] MEDS: Pantoprazole 40 MG TABCR PO (07:48)
[2019-10-08] MEDS: Potassium Chloride 20 MEQ TABCR PO (07:48)
[2019-10-08] MEDS: Docusate Sodium 100 MG CAP PO ×2 (07:48→19:42)
[2019-10-08 08:00] VITALS: BP 140/62; PULSE 84; RESP 16; TEMP 36.9; O2SAT 97
[2019-10-08] MEDS: Metoprolol CR 100 MG TABCR PO (08:01)
[2019-10-08] MEDS: Lisinopril 5 MG TAB 2.5 MG PO (08:01)
[2019-10-08] MEDS: Insulin Aspart 300 UNITS/3 ML PEN SC ×7 (08:07→21:33)
--- NOTE | 2019-10-08 08:16 | W.PM.PROGNOT ---
Date of Service Date of service: 10/08/19 Time of Service: 08:27 Assessment and Plan Assessment and plan (1) Fracture of head of right femur: Status: Chronic Assessment and plan: Linda is an 84-year-old who is status post right hip replacement for a chronic femoral head fracture. She has been making appropriate progress. She has been able to mobilize PT. Her pain is been well controlled. Her hemoglobin did drop appropriately from surgery but stable. Her heart rate is getting better and her hyponatremia seems to be slowly improving. Today, on my examination I am concerned that she has some new symptoms about the right foot with decreased sensation as well as weakness to ankle dorsiflexion and great toe extension. I know that this is been tested in the past I do not recall any significant deficits but I am worried about an incomplete examination from before. Nevertheless, if this is new it is an incomplete sciatic nerve palsy which is most likely due to stretch, swelling, retractors, and/or positioning. Therefore, I would give this time either way. I do not think she needs to have any thing else done but except for this to be followed. I would like to get an AP pelvis today to truly see how much length we added although based on intraoperative measurements it was about 12 to 13 mm, getting her back to her normal hip center. Given that it was not a chronic issue of more than a year or 2, I would highly doubt that this would cause a sciatic nerve stretch issue. It could be due to retractors or positioning. We will continue to follow. She has made progress of physical therapy and I do think she will be ready to discharge to halfway facility when medically cleared. Discharge instructions have been updated. Qualifiers: Encounter type: initial encounter Fracture type: closed Qualified Code(s): S72.051A - Unspecified fracture of head of right femur, initial encounter for closed fracture (2) Postoperative anemia due to acute blood loss: Status: Acute Subjective Subjective Interval history since last seen: Linda reports that her right hip is doing overall fairly well. She does have pain within the muscles about the right hip. She has been able take some steps with physical therapy. She denies any other issue. She has had a cough. She has had persistent hyponatremia which is being managed by the medicine service. She denies chest pain or shortness of breath. Her vital signs have been more stable with a better rate. Exam Narrative Exam Narrative: Linda is sitting up in the chair. She is in no acute distress. She is alert oriented x3. Evaluation of the right hip shows a clean dry and intact dressing. There is minimal ecchymosis. The thigh is soft. She tolerates internal and external rotation of the right hip with very minimal pain except for a slight amount down the leg into the quad. She endorses full sensation over the femoral nerve, lateral from cutaneous nerve. Interestingly, today, she seems to have some decrease in sensation over the dorsum of the foot in the first webspace. She is really not clear if this is new or not. She does not think it is old but she also has a hard time identifying where it feels decreased. Additionally, today she seems to have difficulty with dorsiflexing the right foot and the great toe. I am unsure if this is completely new although I do not recall this from previous exams. She has had a history of back issues and we did lengthen her right leg slightly. She is able to plantarflex the foot as well as flex the great toe. She is able to lightly angelo the foot as well. Palpable DP and PT pulses. Objective Objective Clinical Data: Abnormal lab results 10/07/19 10/07/19 10/08/19 Range/Units 07:28 13:10 06:55 WBC 10.94 H (4.4-10.8) k/cumm RBC 2.95 L (4.00-5.20) m/cumm Hgb 8.6 L (12.0-15.5) g/dL Hct 25.5 L (36.0-46.0) % MPV 13.0 H (8.0-11.0) fL Absolute Neutrophils 8.23 H (1.2-6.7) k/cumm Absolute Monocytes 1.15 H (0.11-0.7) k/cumm Sodium 123 L* 125 L (136-145) mmol/L Potassium 3.4 L (3.5-5.1) mmol/L Chloride 89 L 89 L (98-107) mmol/L BUN 43 H D 36 H (7-18) mg/dL Creatinine 1.32 H 1.35 H (0.55-1.02) mg/dL Glucose 136 H 140 H (74-106) mg/dL Calcium 8.2 L (8.5-10.1) mg/dL NT-Pro-B Natriuret Pep 3056 H 2947 H (<300) pg/mL 10/08/19 Range/Units 06:55 WBC (4.4-10.8) k/cumm RBC 3.10 L (4.00-5.20) m/cumm Hgb 9.1 L (12.0-15.5) g/dL Hct 26.8 L (36.0-46.0) % MPV 13.0 H (8.0-11.0) fL Absolute Neutrophils (1.2-6.7) k/cumm Absolute Monocytes (0.11-0.7) k/cumm Sodium (136-145) mmol/L Potassium (3.5-5.1) mmol/L Chloride (98-107) mmol/L BUN (7-18) mg/dL Creatinine (0.55-1.02) mg/dL Glucose (74-106) mg/dL Calcium (8.5-10.1) mg/dL NT-Pro-B Natriuret Pep (<300) pg/mL Vital Signs Temperature 36.9 C 10/08/19 08:00 Temperature Source Tympanic 10/08/19 08:00 Pulse 84 10/08/19 08:00 Pulse Rhythm Regular 10/08/19 00:40 Pulse 79 10/04/19 10:00 Respiratory Rate 16 10/08/19 08:00 Respiratory Effort Non-Labored 10/08/19 00:40 Respiratory Depth Normal 10/08/19 00:40 Respiratory Pattern Normal 10/08/19 00:40 Blood Pressure 140/62 10/08/19 08:00 Blood Pressure Mean 59 10/04/19 07:22 Blood Pressure Position Supine 10/03/19 03:45 Pulse Oximetry 97 10/08/19 08:00 Respiratory End-tidal CO2 32 10/04/19 15:42 Oxygen Delivery Method Room Air 10/08/19 08:00 Oxygen Flow Rate 0 10/08/19 08:00 Pain Level 0 10/08/19 08:00 Comment 10/07/19 16:35 Intake & Output 10/07/19 10/07/19 10/08/19 11:59 23:59 11:59 Intake Total 1110 / 1620 510 / 1620 210 / 210 Output Total 700 / 1750 1050 / 1750 Balance 410 / -130 -540 / -130 210 / 210 Weight 74.9 kg 72.5 kg Intake: IV Oral 1110 / 1600 490 / 1600 200 / 200 Output: Urine 700 / 1750 1050 / 1750 Other: Urine Color Yellow Yellow Yellow Urine Appearance Clear Clear Clear Urine Odor Normal Normal None Comment Void x1 in the bedside commode. Void x1 in the bedside commode. urine mixed with stool Stool Size Small Stool Characteristics Soft Liquid Brown Voiding Methods Bedside Commode Bedside Commode Bedside Commode Laboratory Results WBC 10.52 k/cumm (4.4-10.8) 10/08/19 06:55 RBC 3.10 m/cumm (4.00-5.20) L 10/08/19 06:55 Hgb 9.1 g/dL (12.0-15.5) L 10/08/19 06:55 Hct 26.8 % (36.0-46.0) L 10/08/19 06:55 MCV 86.5 fL (80-95) 10/08/19 06:55 MCH 29.4 pg (27.0-33.0) 10/08/19 06:55 MCHC 34.0 g/dL (32.0-36.0) 10/08/19 06:55 RDW 13.8 % (11.7-14.6) 10/08/19 06:55 Plt Count 189 x1000/uL (130-400) 10/08/19 06:55 MPV 13.0 fL (8.0-11.0) H 10/08/19 06:55 Immature Gran % 0.4 % 10/07/19 13:10 Neutrophils % 75.2 10/07/19 13:10 Lymphocytes % 12.0 10/07/19 13:10 Monocytes % 10.5 10/07/19 13:10 Eosinophils % 1.7 10/07/19 13:10 Basophils % 0.2 10/07/19 13:10 Absolute Neutrophils 8.23 k/cumm (1.2-6.7) H 10/07/19 13:10 Absolute Lymphocytes 1.31 k/cumm (1.2-3.4) 10/07/19 13:10 Absolute Monocytes 1.15 k/cumm (0.11-0.7) H 10/07/19 13:10 Absolute Eosinophils 0.19 k/cumm (0.0-0.7) 10/07/19 13:10 Absolute Basophils 0.02 k/cumm (0.0-0.2) 10/07/19 13:10 Differential Comment Agrees w/ instrument 10/06/19 07:44 RBC Morphology See below 10/06/19 07:44 Polychromasia Present 10/06/19 07:44 Poikilocytosis 1+ 10/06/19 07:44 Anisocytosis 1+ 10/05/19 04:00 PT 10.0 sec (9.3-11.0) 10/07/19 07:28 INR 1.0 (0.9-1.1) 10/07/19 07:28 APTT 54.8 sec (21.0-31.4) H 10/06/19 07:44 Sodium 125 mmol/L (136-145) L 10/08/19 06:55 Potassium 4.0 mmol/L (3.5-5.1) 10/08/19 06:55 Chloride 89 mmol/L (98-107) L 10/08/19 06:55 Carbon Dioxide 28.0 mmol/L (21.0-32.0) 10/08/19 06:55 Anion Gap 8.0 mmol/L (3-11) 10/08/19 06:55 BUN 36 mg/dL (7-18) H 10/08/19 06:55 Creatinine 1.35 mg/dL (0.55-1.02) H 10/08/19 06:55 Estimated GFR/1.73 m2 37.45 (mL/min/1.73m2) 10/08/19 06:55 Glucose 140 mg/dL (74-106) H 10/08/19 06:55 Hemoglobin A1c 7.7 % (3.8-5.6) H 10/01/19 13:30 Calcium 8.6 mg/dL (8.5-10.1) 10/08/19 06:55 Magnesium 1.9 mg/dL (1.8-2.4) 10/06/19 07:44 Total Bilirubin 0.6 mg/dL (0.2-1.0) 10/01/19 13:30 AST 21 U/L (15-37) 10/01/19 13:30 ALT 20 U/L (14-59) 10/01/19 13:30 Alkaline Phosphatase 77 U/L (46-116) 10/01/19 13:30 Creatine Kinase 188 U/L (26-192) 10/05/19 08:20 Troponin I < 0.05 ng/mL (<0.06) 10/05/19 12:54 NT-Pro-B Natriuret Pep 2947 pg/mL (<300) H 10/08/19 06:55 Total Protein 7.9 g/dL (6.4-8.2) 10/01/19 13:30 Albumin 3.5 g/dL (3.4-5.0) 10/01/19 13:30 Triglycerides 62 mg/dL (<150) 10/02/19 06:07 Total Cholesterol 86 mg/dL (<200) 10/02/19 06:07 LDL Cholesterol, Calc 38 mg/dL (<100) 10/02/19 06:07 HDL Cholesterol 36 mg/dL (40-60) L 10/02/19 06:07 25-OH Vitamin D Total 44.7 ng/ml (30-100) 10/04/19 05:25 Urine Color Red (Yellow) 10/03/19 13:32 Urine Clarity Cloudy (Clear) 10/03/19 13:32 Urine pH 7.0 (5-8) 10/03/19 13:32 Ur Specific [place] 1.020 (1.005-1.025) 10/03/19 13:32 Urine Protein 100 mg/dL (Negative) H 10/03/19 13:32 Urine Ketones Negative mg/dL (Negative) 10/03/19 13:32 Urine Blood Large (Negative) H 10/03/19 13:32 Urine Nitrite Positive (Negative) H 10/03/19 13:32 Urine Bilirubin Small (Negative) H 10/03/19 13:32 Urine Urobilinogen 0.2 EU/dL (Up TO 0.2) 10/03/19 13:32 Ur Leukocyte Esterase Large (Negative) H 10/03/19 13:32 Urine RBC HPF (0-2) 10/03/19 13:32 Urine WBC HPF (0-5) 10/03/19 13:32 Ur Epithelial Cells HPF (Negative) 10/03/19 13:32 Urine Crystals HPF (Negative) 10/03/19 13:32 Urine Bacteria HPF (Negative) 10/03/19 13:32 Urine Casts LPF (Negative) 10/03/19 13:32 Urine Mucus (Negative) 10/03/19 13:32 Ur Culture Indicated? Color interference 10/03/19 13:32 Urine Glucose Negative mg/dL (Negative) 10/03/19 13:32 COVID-19 PCR Negative (Negative) 10/01/19 17:55 Nasopharyn COVID-19 PCR Not Applicable 10/01/19 17:55 Ref Test Perform Site [facility] lab 10/01/19 17:55
--- NOTE | 2019-10-08 09:11 | PDOC.CMPRO ---
- If Service Date Differs Date of service: 10/08/19 Time of Service: 09:11 Care Management Progress Note S/O: Linda remains inpatient [facility] both offered a bed, she also would be a good candidate for SB1 here at [facility] CM reviewed options after discussing with PT and interdisciplinary team. Linda has accepted the swing bed offer at [facility], anticipate she will transition to SB1 on 10/09/19. EVE has reviewed the plan and the conditions of swing bed, including benefits Linda accepts the offer. A:Rapid afib, CHF, history of fracture of the right femur to be repaired. P: Linda will transition to swing bed 1 level of care on 10/09/19 for PT/OT. At time of discharge she will need a resumption of services for nursing, PT and OT through Home health.
[2019-10-08] MEDS: Furosemide 40 MG TAB PO ×2 (09:20→16:59)
[2019-10-08 11:23] VITALS: BP 128/62; PULSE 78; RESP 16; TEMP 36.4; O2SAT 100
--- NOTE | 2019-10-08 14:21 | DI.RAD_ITS ---
EXAM: XR PELVIS AP CLINICAL HISTORY: ORTHO PELVIS s/p R DARIEL. TECHNIQUE: 2D digital imaging was performed. COMPARISON: XR HIP RT IN OR from 10/04/2019 FINDINGS: The patient is status post right total hip replacement. The orthopedic hardware appears in good posi tion. Moderate degenerative changes are seen in the left hip characterized by joint space narrowing and subchondral sclerosis. Vascular calcifications are seen in the soft tissues. Postsurgical segura es are seen in the soft tissues adjacent to the right hip. IMPRESSION: Right total hip arthroplasty. DATA REPOSITORY: RADIATION DOSE DELIVERED:
--- NOTE | 2019-10-08 14:31 | W.PM.PROGNOT ---
Date of Service Date of service: 10/08/19 Time of Service: 14:31 Assessment and Plan Assessment and plan (1) Paroxysmal atrial fibrillation with RVR: Status: Chronic Assessment and plan: Rates are improving with extended release diltiazem CD as well as Toprol-XL. 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 Continue with apixaban. Continue with diuresis. (2) Acute on chronic systolic heart failure: Status: Acute Assessment and plan: recently worsened by her PAF/RVR. proBNP remains elevated at 3000 therefore she will likely need further Lasix (3) Fracture of head of right femur: Status: Chronic Assessment and plan: s/p total hip 10/04/[address] Stovall. Continue PT/OT. Patient needs continued SNF for PT and OT. We will plan for swing bed status tomorrow assuming that her CHF and A. fib are well controlled Qualifiers: Encounter type: initial encounter Fracture type: closed Qualified Code(s): S72.051A - Unspecified fracture of head of right femur, initial encounter for closed fracture (4) Acute deep vein thrombosis (DVT) of right lower extremity: Status: Acute Assessment and plan: Distal (right posterior tibial vein), unclear if it is acute or chronic, developed while on coumadin - i.e. coumadin failure. Patient transition to apixaban Qualifiers: Affected thrombotic vein of extremity: tibial Qualified Code(s): I82.441 - Acute embolism and thrombosis of right tibial vein (5) Hyponatremia: Status: Acute Assessment and plan: Her hyponatremia is secondary to her CHF, giving lasix and iv fluids would not be appropriate and explains why her BNP has risen along w/ the return of bibasilar rales. I resumed her oral Lasix. She was given a dose of IV Lasix yesterday. We will repeat her proBNP and basic metabolic profile in the morning. (6) UTI (urinary tract infection): Status: Acute Assessment and plan: Keflex day #3 (had 2 days of Rocephin) for E. coli (pansensitive). Will finish out her antibiotics today then recheck her urine tomorrow and if no growth then no further antibiotics (7) Diabetes mellitus: Status: Chronic Assessment and plan: poorly controlled. Slightly improved glucose readings since changes made yesterday to her insulin regimen. Will adjust her Lantus further to 18 units at night continue w/ moderate dose SSI and CHO coverage. (8) DVT prophylaxis: Status: Acute Assessment and plan: heparin gtt changed to Apixaban yesterday. (9) Discharge planning issues: Status: Acute Assessment and plan: DNR/DNI Continues to require hospitalization. Anticipate discharge to swing bed in the next 24 to 48h. Subjective Subjective Interval history since last seen: Patient denies any chest pain or shortness of breath. Overall her atrial fibrillation rate has been improving but she still has paroxysms of which her heart rate will get up into the 140s with activity. She still in some congestive heart failure as evidenced by persistently elevated proBNP of 2900. Her serum sodium is improving is now up to 125. BUN and creatinine are holding steady at 36 and 1.35. Patient is a candidate to become a swing bed patient although she is also been accepted at both the [facility] and rehab. I feel that given her CHF and her chronic atrial fibrillation it might be judicious to keep her here under swing bed status for we can keep a closer eye on her head prevent readmission to acute inpatient status. Exam Narrative Exam Narrative: Elderly female who just got back to bed after coming back from radiology for follow-up hip x-ray. She is alert and oriented person place time circumstance. Lungs are clear to auscultation anteriorly she has some faint bibasilar rales posteriorly. Heart is irregularly irregular Abdomen soft and nontender Right hip is nontender to palpation no induration or erythema. Wound is covered with a dressing. Lower extremities without peripheral cyanosis or edema Objective Objective Clinical Data: Abnormal lab results 10/08/19 10/08/19 Range/Units 06:55 06:55 RBC 3.10 L (4.00-5.20) m/cumm Hgb 9.1 L (12.0-15.5) g/dL Hct 26.8 L (36.0-46.0) % MPV 13.0 H (8.0-11.0) fL Sodium 125 L (136-145) mmol/L Chloride 89 L (98-107) mmol/L BUN 36 H (7-18) mg/dL Creatinine 1.35 H (0.55-1.02) mg/dL Glucose 140 H (74-106) mg/dL NT-Pro-B Natriuret Pep 2947 H (<300) pg/mL Vital Signs Temperature 36.4 C L 10/08/19 11:23 Temperature Source Temporal Artery Scan 10/08/19 11:23 Pulse 78 10/08/19 11:23 Pulse Rhythm Regular 10/08/19 07:45 Pulse 79 10/04/19 10:00 Respiratory Rate 16 10/08/19 11:23 Respiratory Effort 10/08/19 07:45 Respiratory Depth Normal 10/08/19 07:45 Respiratory Pattern Normal 10/08/19 07:45 Blood Pressure 128/62 10/08/19 11:23 Blood Pressure Mean 59 10/04/19 07:22 Blood Pressure Position Supine 10/03/19 03:45 Pulse Oximetry 100 10/08/19 11:23 Respiratory End-tidal CO2 32 10/04/19 15:42 Oxygen Delivery Method Room Air 10/08/19 11:23 Oxygen Flow Rate 0 10/08/19 11:23 Pain Level 0 10/08/19 11:23 Comment 10/07/19 16:35 Intake & Output 10/07/19 10/08/19 10/08/19 23:59 11:59 23:59 Intake Total 510 / 1620 570 / 690 120 / 690 Output Total 1050 / 1750 550 / 550 Balance -540 / -130 20 / 140 120 / 140 Weight 72.5 kg Intake: IV Oral 490 / 1600 550 / 670 120 / 670 Output: Urine 1050 / 1750 550 / 550 Other: Urine Color Yellow Dark Jessica Urine Appearance Clear Clear Urine Odor Normal Strong Comment Void x1 in the bedside commode. urine mixed with stool Stool Size Moderate Stool Characteristics Soft Voiding Methods Bedside Commode Bedside Commode Laboratory Results WBC 10.52 k/cumm (4.4-10.8) 10/08/19 06:55 RBC 3.10 m/cumm (4.00-5.20) L 10/08/19 06:55 Hgb 9.1 g/dL (12.0-15.5) L 10/08/19 06:55 Hct 26.8 % (36.0-46.0) L 10/08/19 06:55 MCV 86.5 fL (80-95) 10/08/19 06:55 MCH 29.4 pg (27.0-33.0) 10/08/19 06:55 MCHC 34.0 g/dL (32.0-36.0) 10/08/19 06:55 RDW 13.8 % (11.7-14.6) 10/08/19 06:55 Plt Count 189 x1000/uL (130-400) 10/08/19 06:55 MPV 13.0 fL (8.0-11.0) H 10/08/19 06:55 Immature Gran % 0.4 % 10/07/19 13:10 Neutrophils % 75.2 10/07/19 13:10 Lymphocytes % 12.0 10/07/19 13:10 Monocytes % 10.5 10/07/19 13:10 Eosinophils % 1.7 10/07/19 13:10 Basophils % 0.2 10/07/19 13:10 Absolute Neutrophils 8.23 k/cumm (1.2-6.7) H 10/07/19 13:10 Absolute Lymphocytes 1.31 k/cumm (1.2-3.4) 10/07/19 13:10 Absolute Monocytes 1.15 k/cumm (0.11-0.7) H 10/07/19 13:10 Absolute Eosinophils 0.19 k/cumm (0.0-0.7) 10/07/19 13:10 Absolute Basophils 0.02 k/cumm (0.0-0.2) 10/07/19 13:10 Differential Comment Agrees w/ instrument 10/06/19 07:44 RBC Morphology See below 10/06/19 07:44 Polychromasia Present 10/06/19 07:44 Poikilocytosis 1+ 10/06/19 07:44 Anisocytosis 1+ 10/05/19 04:00 PT 10.0 sec (9.3-11.0) 10/07/19 07:28 INR 1.0 (0.9-1.1) 10/07/19 07:28 APTT 54.8 sec (21.0-31.4) H 10/06/19 07:44 Sodium 125 mmol/L (136-145) L 10/08/19 06:55 Potassium 4.0 mmol/L (3.5-5.1) 10/08/19 06:55 Chloride 89 mmol/L (98-107) L 10/08/19 06:55 Carbon Dioxide 28.0 mmol/L (21.0-32.0) 10/08/19 06:55 Anion Gap 8.0 mmol/L (3-11) 10/08/19 06:55 BUN 36 mg/dL (7-18) H 10/08/19 06:55 Creatinine 1.35 mg/dL (0.55-1.02) H 10/08/19 06:55 Estimated GFR/1.73 m2 37.45 (mL/min/1.73m2) 10/08/19 06:55 Glucose 140 mg/dL (74-106) H 10/08/19 06:55 Hemoglobin A1c 7.7 % (3.8-5.6) H 10/01/19 13:30 Calcium 8.6 mg/dL (8.5-10.1) 10/08/19 06:55 Magnesium 1.9 mg/dL (1.8-2.4) 10/06/19 07:44 Total Bilirubin 0.6 mg/dL (0.2-1.0) 10/01/19 13:30 AST 21 U/L (15-37) 10/01/19 13:30 ALT 20 U/L (14-59) 10/01/19 13:30 Alkaline Phosphatase 77 U/L (46-116) 10/01/19 13:30 Creatine Kinase 188 U/L (26-192) 10/05/19 08:20 Troponin I < 0.05 ng/mL (<0.06) 10/05/19 12:54 NT-Pro-B Natriuret Pep 2947 pg/mL (<300) H 10/08/19 06:55 Total Protein 7.9 g/dL (6.4-8.2) 10/01/19 13:30 Albumin 3.5 g/dL (3.4-5.0) 10/01/19 13:30 Triglycerides 62 mg/dL (<150) 10/02/19 06:07 Total Cholesterol 86 mg/dL (<200) 10/02/19 06:07 LDL Cholesterol, Calc 38 mg/dL (<100) 10/02/19 06:07 HDL Cholesterol 36 mg/dL (40-60) L 10/02/19 06:07 25-OH Vitamin D Total 44.7 ng/ml (30-100) 10/04/19 05:25 Urine Color Red (Yellow) 10/03/19 13:32 Urine Clarity Cloudy (Clear) 10/03/19 13:32 Urine pH 7.0 (5-8) 10/03/19 13:32 Ur Specific [place] 1.020 (1.005-1.025) 10/03/19 13:32 Urine Protein 100 mg/dL (Negative) H 10/03/19 13:32 Urine Ketones Negative mg/dL (Negative) 10/03/19 13:32 Urine Blood Large (Negative) H 10/03/19 13:32 Urine Nitrite Positive (Negative) H 10/03/19 13:32 Urine Bilirubin Small (Negative) H 10/03/19 13:32 Urine Urobilinogen 0.2 EU/dL (Up TO 0.2) 10/03/19 13:32 Ur Leukocyte Esterase Large (Negative) H 10/03/19 13:32 Urine RBC HPF (0-2) 10/03/19 13:32 Urine WBC HPF (0-5) 10/03/19 13:32 Ur Epithelial Cells HPF (Negative) 10/03/19 13:32 Urine Crystals HPF (Negative) 10/03/19 13:32 Urine Bacteria HPF (Negative) 10/03/19 13:32 Urine Casts LPF (Negative) 10/03/19 13:32 Urine Mucus (Negative) 10/03/19 13:32 Ur Culture Indicated? Color interference 10/03/19 13:32 Urine Glucose Negative mg/dL (Negative) 10/03/19 13:32 COVID-19 PCR Negative (Negative) 10/01/19 17:55 Nasopharyn COVID-19 PCR Not Applicable 10/01/19 17:55 Ref Test Perform Site [facility] 10/01/19 17:55
--- NOTE | 2019-10-08 14:49 | PT.INTREAT ---
Date of service: 10/08/19 Time of Service: 14:49 PT Notes Visit Reasons: RAPID AFIB,OLD R HIP FX Inpatient Physical Therapy Treatment Note [facility] Date: 10/08/2019 SUBJECTIVE: Linda offers no complaints. OBJECTIVE: [] BED MOBILITY/TRANSFERS Supine-sit: CGA Sit-supine: CGA, she uses a belt to help assist her right LE into bed. Sit-stand: CGA/ min assist Stand-sit: CGA GAIT Assistive Device: FWW Weight bearing: AT Assist: CGA Distance: 6' in am and 5'x2 in pm THEREX: global LE strength and stabilization. Functional mobility. see flowsheet for details. ASSESSMENT: tolerated session fairly well. Ambulation seems to take a lot out of her due to poor endurance. No pain complaints. Noted drop foot on right. She is unable to actively DF and I do not remember this being a problem on the 10th. PLAN: will continue to progress following PT POC. TREATMENT CODE/TIME: 25 min in am and 25 min in pm. [id number], [id number].
[2019-10-08 15:50] VITALS: BP 98/54; PULSE 81; RESP 16; TEMP 36.6; O2SAT 99
[2019-10-08 20:00] VITALS: BP 108/58; PULSE 70; RESP 20; TEMP 37.4; O2SAT 98
[2019-10-08] MEDS: dilTIAZem CD 180 MG CAPCR PO (21:31)
[2019-10-08] MEDS: Insulin Glargine 300 UNITS/3 ML PEN 18 UNITS SC (21:32)
[2019-10-08 23:59] VITALS: BP 96/58; PULSE 85; RESP 18; TEMP 36.8; O2SAT 96
[2019-10-09] VITALS (8 sets, daily range): BP systolic 94–110; BP diastolic 52–67; PULSE 78–95; RESP 16–20; TEMP 36.2–37.4; O2SAT 95–100
[2019-10-09] MEDS: Refresh PLUS Eye Drops 0.4ml 1 EACH OU ×5 (04:27→19:19)
[2019-10-09] MEDS: Normal Saline Flush 10 ML SYR IVP ×3 (07:55→14:19)
[2019-10-09] MEDS: Insulin Aspart 300 UNITS/3 ML PEN SC ×7 (07:58→21:59)
[2019-10-09] MEDS: Aspirin E.C. 81 MG TABEC PO (07:59)
[2019-10-09] MEDS: Apixaban 5 MG TAB PO ×2 (07:59→19:19)
[2019-10-09] MEDS: Metoprolol CR 100 MG TABCR PO (07:59)
[2019-10-09] MEDS: Cephalexin 500 MG CAP PO (07:59)
[2019-10-09] MEDS: Lisinopril 5 MG TAB 2.5 MG PO (07:59)
[2019-10-09] MEDS: Pantoprazole 40 MG TABCR PO (08:00)
[2019-10-09] MEDS: Multivitamin TAB 1 TAB PO (08:00)
[2019-10-09] MEDS: Docusate Sodium 100 MG CAP PO ×2 (08:00→19:19)
[2019-10-09 08:11] LABS: Anion Gap 5.3 mmol/L (3-11); BUN 36 mg/dL (7-18); CO2 30.7 mmol/L (21.0-32.0); CREATININE 1.36 mg/dL (0.55-1.02); Calcium 8.7 mg/dL (8.5-10.1); Chloride 91 mmol/L (98-107); Estimated GFR 37.13 (mL/min/1.73m2); Glucose 125 mg/dL (74-106); NT-proBNP 2403 pg/mL (<300); Potassium 3.8 mmol/L (3.5-5.1); Sodium 127 mmol/L (136-145)
--- NOTE | 2019-10-09 09:01 | PDOC.CMPRO ---
- If Service Date Differs Date of service: 10/09/19 Time of Service: 09:01 Care Management Progress Note S/O: Linda will transition to swing bed level of care 1 when she is medically ready. CM reviewed the contract and completed contract and IMM. Goal of care SB1 x 1-2 weeks for PT and OT, until ready to return home with home health services including nursing, PT and OT. A:Rapid afib, CHF, history of fracture of the right femur to be repaired. P: Anticipate Linda will transition to swing bed 1 level of care on 10/10/19 for PT/OT. At time of discharge she will need a resumption of services for nursing, PT and OT through Home health.
[2019-10-09] MEDS: fentaNYL 25 MCG PATCH TD (09:20)
--- NOTE | 2019-10-09 13:47 | W.PM.PROGNOT ---
Date of Service Date of service: 10/09/19 Time of Service: 13:47 Assessment and Plan Assessment and plan (1) Paroxysmal atrial fibrillation with RVR: Status: Chronic Assessment and plan: Continue current dose of Toprol-XL and Cardizem CD. Hold furosemide for today. (2) Acute on chronic systolic heart failure: Status: Acute Assessment and plan: recently worsened by her PAF/RVR. Electrolytes continue to improve. Serum sodium is up to 127. Potassium is 3.8. BUN and creatinine continue to improve at 36 and 1.36. proBNP is now down to 2400 which is the lowest since her admission. I will change her lisinopril dose to be given at night starting tomorrow. However, d/t her low BP I had to hold her lasix and actually give her a small fluid bolus. I will resume her lasix tomorrow at a reduced amount of 40 mg daily rather than bid. (3) Fracture of head of right femur: Status: Chronic Assessment and plan: s/p total hip 10/04/[address] Stovall. Continue PT/OT. Patient needs continued SNF for PT and OT. Qualifiers: Encounter type: initial encounter Fracture type: closed Qualified Code(s): S72.051A - Unspecified fracture of head of right femur, initial encounter for closed fracture (4) Acute deep vein thrombosis (DVT) of right lower extremity: Status: Acute Assessment and plan: Distal (right posterior tibial vein), unclear if it is acute or chronic, developed while on coumadin - i.e. coumadin failure. Patient transition to apixaban Qualifiers: Affected thrombotic vein of extremity: tibial Qualified Code(s): I82.441 - Acute embolism and thrombosis of right tibial vein (5) Hyponatremia: Status: Acute Assessment and plan: Her hyponatremia is d/t her CHF, not SIADH. Her CHF worsened while she was on saline supplementation but has improved w/ fluid restriction and lasix. Sodium is now up to 127. I will continue to keep her on 2 liter/day restriction and will resume her lasix tomorrow once her BP is improved. (6) UTI (urinary tract infection): Status: Acute Assessment and plan: Keflex day #4 (had 2 days of Rocephin) for E. coli (pansensitive). Keflex ms'ed today. Repeat urine for UA and C&S pending (7) Diabetes mellitus: Status: Chronic Assessment and plan: poorly controlled. Slightly improved w/ adjustments in her Lantus and sliding scale and CHO coverage. Will continue adjustment in [place] until FBS under 120, goal is for all her other glucose to remain under 180. (8) DVT prophylaxis: Status: Acute Assessment and plan: currently on Apixaban for her afib (9) Discharge planning issues: Status: Acute Assessment and plan: DNR/DNI Continues to require hospitalization. Anticipate discharge to swing bed in the next 24 to 48h. Subjective Subjective Interval history since last seen: Patient is a little lethargic this morning. She states she did not sleep well last night. Her blood pressures have been on the low side running in the high 90s to low 100s systolic. The rest of her numbers look good her heart rate is under better control today. Per ICU nurses her telemetry is showing atrial fibrillation and the rate 80-110. Pulse oximetry is 96% on room air. Her weight is down to 71.9 kg. I think she may have been a little over diuresed and her blood pressure soft from that as well as from the high-dose Toprol-XL and Cardizem CD to control atrial fibrillation rate and now the addition of low-dose Prinivil for heart failure. Her furosemide is on hold currently, to give her a small bolus of saline 250 mL's x1 dose. I will change her Prinivil dosing to at bedtime starting tomorrow night. We will hold off on transfer to swing bed status for today. Exam Narrative Exam Narrative: Elderly female who is sleepy falling asleep in mid conversation. Lungs are clear to auscultation. Heart is irregularly irregular at a controlled rate Abdomen soft and nontender Extremities without peripheral cyanosis or edema. Objective Objective Clinical Data: Abnormal lab results 10/09/19 Range/Units 07:00 Sodium 127 L (136-145) mmol/L Chloride 91 L (98-107) mmol/L BUN 36 H (7-18) mg/dL Creatinine 1.36 H (0.55-1.02) mg/dL Glucose 125 H (74-106) mg/dL NT-Pro-B Natriuret Pep 2403 H (<300) pg/mL Vital Signs Temperature 36.4 C L 10/09/19 11:55 Temperature Source Temporal Artery Scan 10/09/19 11:55 Pulse 80 10/09/19 11:55 Pulse Rhythm Irregular 10/09/19 07:30 Pulse 79 10/04/19 10:00 Respiratory Rate 18 10/09/19 11:55 Respiratory Effort 10/09/19 07:30 Respiratory Depth Normal 10/09/19 07:30 Respiratory Pattern Normal 10/09/19 07:30 Blood Pressure 98/60 L 10/09/19 11:55 Blood Pressure Mean 59 10/04/19 07:22 Blood Pressure Position Supine 10/03/19 03:45 Pulse Oximetry 96 10/09/19 11:55 Respiratory End-tidal CO2 32 10/04/19 15:42 Oxygen Delivery Method Room Air 10/09/19 11:55 Oxygen Flow Rate 0 10/09/19 11:55 Pain Level 0 10/09/19 11:55 Comment 10/07/19 16:35 Intake & Output 10/08/19 10/09/19 10/09/19 23:59 11:59 23:59 Intake Total 360 / 930 720 / 720 Output Total 650 / 1200 150 / 150 Balance -290 / -270 570 / 570 Weight 71.9 kg Intake: IV Oral 360 / 910 700 / 700 Output: Urine 650 / 1200 150 / 150 Other: Urine Color Yellow Yellow Urine Appearance Clear Clear Urine Odor None Stool Size Moderate Stool Characteristics Soft Voiding Methods Bedside Commode Bedside Commode Laboratory Results WBC 10.52 k/cumm (4.4-10.8) 10/08/19 06:55 RBC 3.10 m/cumm (4.00-5.20) L 10/08/19 06:55 Hgb 9.1 g/dL (12.0-15.5) L 10/08/19 06:55 Hct 26.8 % (36.0-46.0) L 10/08/19 06:55 MCV 86.5 fL (80-95) 10/08/19 06:55 MCH 29.4 pg (27.0-33.0) 10/08/19 06:55 MCHC 34.0 g/dL (32.0-36.0) 10/08/19 06:55 RDW 13.8 % (11.7-14.6) 10/08/19 06:55 Plt Count 189 x1000/uL (130-400) 10/08/19 06:55 MPV 13.0 fL (8.0-11.0) H 10/08/19 06:55 Immature Gran % 0.4 % 10/07/19 13:10 Neutrophils % 75.2 10/07/19 13:10 Lymphocytes % 12.0 10/07/19 13:10 Monocytes % 10.5 10/07/19 13:10 Eosinophils % 1.7 10/07/19 13:10 Basophils % 0.2 10/07/19 13:10 Absolute Neutrophils 8.23 k/cumm (1.2-6.7) H 10/07/19 13:10 Absolute Lymphocytes 1.31 k/cumm (1.2-3.4) 10/07/19 13:10 Absolute Monocytes 1.15 k/cumm (0.11-0.7) H 10/07/19 13:10 Absolute Eosinophils 0.19 k/cumm (0.0-0.7) 10/07/19 13:10 Absolute Basophils 0.02 k/cumm (0.0-0.2) 10/07/19 13:10 Differential Comment Agrees w/ instrument 10/06/19 07:44 RBC Morphology See below 10/06/19 07:44 Polychromasia Present 10/06/19 07:44 Poikilocytosis 1+ 10/06/19 07:44 Anisocytosis 1+ 10/05/19 04:00 PT 10.0 sec (9.3-11.0) 10/07/19 07:28 INR 1.0 (0.9-1.1) 10/07/19 07:28 APTT 54.8 sec (21.0-31.4) H 10/06/19 07:44 Sodium 127 mmol/L (136-145) L 10/09/19 07:00 Potassium 3.8 mmol/L (3.5-5.1) 10/09/19 07:00 Chloride 91 mmol/L (98-107) L 10/09/19 07:00 Carbon Dioxide 30.7 mmol/L (21.0-32.0) 10/09/19 07:00 Anion Gap 5.3 mmol/L (3-11) 10/09/19 07:00 BUN 36 mg/dL (7-18) H 10/09/19 07:00 Creatinine 1.36 mg/dL (0.55-1.02) H 10/09/19 07:00 Estimated GFR/1.73 m2 37.13 (mL/min/1.73m2) 10/09/19 07:00 Glucose 125 mg/dL (74-106) H 10/09/19 07:00 Hemoglobin A1c 7.7 % (3.8-5.6) H 10/01/19 13:30 Calcium 8.7 mg/dL (8.5-10.1) 10/09/19 07:00 Magnesium 1.9 mg/dL (1.8-2.4) 10/06/19 07:44 Total Bilirubin 0.6 mg/dL (0.2-1.0) 10/01/19 13:30 AST 21 U/L (15-37) 10/01/19 13:30 ALT 20 U/L (14-59) 10/01/19 13:30 Alkaline Phosphatase 77 U/L (46-116) 10/01/19 13:30 Creatine Kinase 188 U/L (26-192) 10/05/19 08:20 Troponin I < 0.05 ng/mL (<0.06) 10/05/19 12:54 NT-Pro-B Natriuret Pep 2403 pg/mL (<300) H 10/09/19 07:00 Total Protein 7.9 g/dL (6.4-8.2) 10/01/19 13:30 Albumin 3.5 g/dL (3.4-5.0) 10/01/19 13:30 Triglycerides 62 mg/dL (<150) 10/02/19 06:07 Total Cholesterol 86 mg/dL (<200) 10/02/19 06:07 LDL Cholesterol, Calc 38 mg/dL (<100) 10/02/19 06:07 HDL Cholesterol 36 mg/dL (40-60) L 10/02/19 06:07 25-OH Vitamin D Total 44.7 ng/ml (30-100) 10/04/19 05:25 Urine Color Red (Yellow) 10/03/19 13:32 Urine Clarity Cloudy (Clear) 10/03/19 13:32 Urine pH 7.0 (5-8) 10/03/19 13:32 Ur Specific [place] 1.020 (1.005-1.025) 10/03/19 13:32 Urine Protein 100 mg/dL (Negative) H 10/03/19 13:32 Urine Ketones Negative mg/dL (Negative) 10/03/19 13:32 Urine Blood Large (Negative) H 10/03/19 13:32 Urine Nitrite Positive (Negative) H 10/03/19 13:32 Urine Bilirubin Small (Negative) H 10/03/19 13:32 Urine Urobilinogen 0.2 EU/dL (Up TO 0.2) 10/03/19 13:32 Ur Leukocyte Esterase Large (Negative) H 10/03/19 13:32 Urine RBC HPF (0-2) 10/03/19 13:32 Urine WBC HPF (0-5) 10/03/19 13:32 Ur Epithelial Cells HPF (Negative) 10/03/19 13:32 Urine Crystals HPF (Negative) 10/03/19 13:32 Urine Bacteria HPF (Negative) 10/03/19 13:32 Urine Casts LPF (Negative) 10/03/19 13:32 Urine Mucus (Negative) 10/03/19 13:32 Ur Culture Indicated? Color interference 10/03/19 13:32 Urine Glucose Negative mg/dL (Negative) 10/03/19 13:32 COVID-19 PCR Negative (Negative) 10/01/19 17:55 Nasopharyn COVID-19 PCR Not Applicable 10/01/19 17:55 Ref Test Perform Site [facility] 10/01/19 17:55
[2019-10-09] MEDS: Normal Saline 250 ML IV (14:20)
[2019-10-09 14:35] LABS: Bilirubin Negative (Negative); Blood Negative (Negative); Clarity Clear (Clear); Glucose Negative (Negative); Ketones Negative (Negative); Leukocyte Esterase Negative (Negative); Nitrite Negative (Negative); Specific Gravity 1.015 (1.005-1.025); Urobilinogen 0.2 EU/dL (Up TO 0.2)
--- NOTE | 2019-10-09 14:42 | NUR.NOTE ---
Nursing Note: I have reviewed the Charting of Familia North RN, and find it is acceptable
[2019-10-09 16:18] LABS: COVID-19 RT-PCR Result Not Detected
--- NOTE | 2019-10-09 16:34 | PT.INNT ---
Date of service: 10/09/19 Time of Service: 16:34 PT Notes Visit Reasons: RAPID AFIB,OLD R HIP FX Will re-evalute as soon as a new referral under swing bed level 1 of care is received. MD and nurse practitioner have been made aware of said plan. Thank you for the opportunity to participate in the care of this patient. Alix Hannah PT, DPT, CLT [facility] [place], [place]
[2019-10-09] MEDS: dilTIAZem CD 180 MG CAPCR PO (21:58)
[2019-10-09] MEDS: Insulin Glargine 300 UNITS/3 ML PEN 20 UNITS SC (21:58)
[2019-10-10] MEDS: Refresh PLUS Eye Drops 0.4ml 1 EACH OU ×4 (00:25→12:01)
[2019-10-10 03:40] VITALS: BP 104/69; PULSE 76; RESP 18; TEMP 36.6; O2SAT 99
[2019-10-10 07:49] LABS: Abs Immature Grans 0.08 k/cumm (0.0-0.09); Absolute Basophil Count 0.03 k/cumm (0.0-0.2); Absolute Eosinophil Count 0.33 k/cumm (0.0-0.7); Absolute Lymphocyte Count 2.04 k/cumm (1.2-3.4); Absolute Monocyte Count 1.34 k/cumm (0.11-0.7); Absolute Neutrophil Count 5.36 k/cumm (1.2-6.7); Basophils % 0.3; Eosinophils % 3.6; HCT 26.1 % (36.0-46.0); HGB 8.6 g/dL (12.0-15.5); Immature Grans % 0.9 %; Lymphocytes % 22.2; Mean Corpuscular Volume 87.9 fL (80-95); Mean Platelet Volume 11.5 fL (8.0-11.0); Monocytes % 14.6; Neutrophils % 58.4; Platelet Count 254 x1000/uL (130-400); RBC 2.97 m/cumm (4.00-5.20); RBC Distribution Width 14.1 % (11.7-14.6); White Blood Cell Count 9.18 k/cumm (4.4-10.8)
[2019-10-10 08:01] LABS: Anion Gap 5.3 mmol/L (3-11); BUN 35 mg/dL (7-18); CO2 29.7 mmol/L (21.0-32.0); CREATININE 1.33 mg/dL (0.55-1.02); Calcium 8.3 mg/dL (8.5-10.1); Chloride 92 mmol/L (98-107); Glucose 107 mg/dL (74-106); NT-proBNP 1597 pg/mL (<300); Potassium 4.3 mmol/L (3.5-5.1); Sodium 127 mmol/L (136-145)
[2019-10-10 08:06] LABS: Iron 28 ug/dL (50-170); Total Iron Binding Capacity 215 ug/dL (250-450); Transferrin Sat 13 % (15-50)
[2019-10-10 08:23] LABS: Anisocytosis 1+; Diff Comment RBC Morph Reviewed; Hypochromasia 1+; Polychromasia Present
[2019-10-10 08:24] LABS: Poikilocytes 1+
[2019-10-10 08:26] VITALS: BP 94/56; PULSE 85; RESP 16; TEMP 37; O2SAT 96
[2019-10-10] MEDS: Normal Saline Flush 10 ML SYR IVP ×2 (08:31→08:36)
[2019-10-10 08:32] LABS: Ferritin 99 ng/mL (8-252)
[2019-10-10] MEDS: Insulin Aspart 300 UNITS/3 ML PEN SC ×3 (08:32→11:59)
[2019-10-10] MEDS: Aspirin E.C. 81 MG TABEC PO (08:33)
[2019-10-10] MEDS: Apixaban 5 MG TAB PO (08:33)
[2019-10-10] MEDS: Multivitamin TAB 1 TAB PO (08:34)
[2019-10-10] MEDS: Pantoprazole 40 MG TABCR PO (08:34)
[2019-10-10] MEDS: Metoprolol CR 100 MG TABCR PO (08:34)
[2019-10-10] MEDS: Furosemide 40 MG TAB PO (08:34)
[2019-10-10] MEDS: Docusate Sodium 100 MG CAP PO (08:34)
--- NOTE | 2019-10-10 09:00 | PT.INDS ---
Date of service: 10/10/19 Time of Service: 11:17 PT Notes Visit Reasons: RAPID AFIB,OLD R HIP FX Physical Therapy Inpatient Discharge Summary Date: 10/10/19 Referring Doctor: Ayaan Stovall MD PT Orders: PT CONSULT: s/p right DARIEL Precautions: Fall, standard. WBAT on R LE. Patient Profile/Admitting Diagnosis: Patient converted to swing bed level 1 as of today 10/10/2019 and will be re-evaluated for continued skilled PT services. Patient admitted 10/01/19 for management of atriall fibrillation on anticoagulation, with RLE DVT. She had been previously scheduled for a right DARIEL to address a chronic femoral head fracture. Her hip replacement was performed during her acute care stay, on 10/04/19. Attempted PT consultation on day of surgery, although patient was placed on hold per nursing due to corneal abrasion. This morning, nursing requests hold on transfers due to tachycardia, with HR in 130s at rest. PMHX: Arthritis (Acute) ASCVD (arteriosclerotic cardiovascular disease) (Acute 04/22/15) [place] with out of hosp cardiac arrest LAD stent, LVEF 35% Atrial fibrillation (Acute 05/27/11) paroxysmal Oct 2009 Carpal tunnel syndrome on both sides (Acute) CHF (congestive heart failure) (Chronic) Chronic low back pain (Chronic) Complementary medicine (Chronic) homeopathic primarily: DNI (do not intubate) (Acute) DNR (do not resuscitate) (Acute) Essential hypertension (Acute 01/04/13) echo 2007 LVH uncontrolled BP (neg w/u for pheo) Foot drop, left (Acute) GERD (gastroesophageal reflux disease) (Chronic) Hip pain, right (Chronic) Hyperlipidemia (Acute) Hypertensive retinopathy (Acute) Impaired left ventricular function (Acute ~05/2019) [facility] [place]; 35% Low back pain (Acute) Lumbar stenosis (Acute) Mild obstructive sleep apnea (Acute 11/17/15) [facility] NSTEMI (non-ST elevated myocardial infarction) (Acute ~05/2019) [facility] [place] Palliative care patient (Acute) Pedal edema (Acute) POLST (Physician Orders for Life-Sustaining Treatment) (Chronic) 3 on file Refusal of blood transfusions as patient is [place] (Acute) Renal insufficiency (Chronic) Type II diabetes mellitus with complication, uncontrolled (Acute 05/14/14) Social History/Home Situation: Patient lives alone. Her son is present at initiation of PT session. She plans [facility] post op [facility]hab prior to returning home. Equipment Owned/DME: 4WW Subjective: NT Objective: General Observation: NT Mental Status: NT ROM: Right Upper Extremity: WFL Left Upper Extremity: WFL Right Lower Extremity: No active ankle DF. Toe extension available up to 10 degrees. Left Lower Extremity: WFL Strength: Right Upper Extremity: WFL Left Upper Extremity: WFL Right Lower Extremity: Good quad activation with quad sets. Ankle DF 3-/5. Left Lower Extremity: Grossly WFL with the exception of ankle DF 3-/5. Sensation: intact distally Bed Mobility/Transfers: Supine to sit contact-guard assist Sit to stand minimal assist Stand to sit minimal assist Bed to chair minimal assist Chair to bed minimal assist Gait: Per PT notes on 10/08/2019, patient tolerated 5 feet x 2 of short distance ambulation using front wheeled walker with WBAT requiring contact-guard assist with distance limited by cardiac status.. Assessment: Patient is a 84 year old female referred to physical therapy services with the diagnosis of s/p right DARIEL. Patient presents with clinical signs and symptoms consistent with post-op status, although complicated by atrial fibrillation and RLE DVT. She converts to swing bed level 1 of care as of today with continued skilled physical therapy services for functional mobility progression. Goals: Goals X1 week 1. Supine-Sit: min A MET 2. Sit-Supine: min A MET 3. Sit-Stand: min A MET 4. Stand-Sit : min A MET 5. Bed-Chair: min A with FWW MET 6. Chair-Bed : min A with FWW MET 7. Gait : min A with FWW x 25' NOT MET DISCHARGE RECOMMENDATIONS: Patient will be reevaluated under swing bed level 1 on 10/10/2019 with continued skilled PT services to achieve above goals. TREATMENT CODE/TIME: NC. Thank you for the opportunity to participate in the care of this patient. Alix Hannah PT, DPT, CLT [facility] [place], [place]
[2019-10-10] MEDS: fentaNYL 12 MCG PATCH TD (10:41)
--- NOTE | 2019-10-10 11:55 | PDOC.CMPRO ---
- If Service Date Differs Date of service: 10/10/19 Time of Service: 11:55 Care Management Progress Note S/O: Linda will transition to swing bed level of care 1 today. CM reviewed the contract and completed contract and IMM. Goal of care SB1 x 1-2 weeks for PT and OT, until ready to return home with home health services including nursing, PT and OT. A:Rapid afib, CHF, history of fracture of the right femur to be repaired. P: Linda will transition to swing bed 1 level of care on 10/10/19 for PT/OT. At time of discharge she will need a resumption of services for nursing, PT and OT through Home health.
--- NOTE | 2019-10-10 12:28 | W.PM.PROGNOT ---
Date of Service Date of service: 10/10/19 Time of Service: 12:29 Assessment and Plan Assessment and plan (1) Paroxysmal atrial fibrillation with RVR: Status: Chronic Assessment and plan: Continue current dose of Toprol-XL and Cardizem CD. Continue apixaban. (2) Acute on chronic systolic heart failure: Status: Acute Assessment and plan: Resume Lasix at a reduced dose of 40 mg daily. (3) Iron deficiency anemia: Status: Acute Assessment and plan: We will give the patient a dose of venofer 300 mg IV today. She has had chronic constipation issues and would not tolerate oral iron supplementation. I will repeat her venofer dose tomorrow on her first day in a swing bed status and then recheck her CBC on Tuesday. (4) Fracture of head of right femur: Status: Chronic Assessment and plan: s/p total hip 10/04/[address] Stovall. Continue PT/OT. Patient needs continued SNF for PT and OT. Patient be transferred to swing bed status today after completion of her venofer. Qualifiers: Encounter type: initial encounter Fracture type: closed Qualified Code(s): S72.051A - Unspecified fracture of head of right femur, initial encounter for closed fracture (5) Acute deep vein thrombosis (DVT) of right lower extremity: Status: Acute Assessment and plan: Distal (right posterior tibial vein), unclear if it is acute or chronic, developed while on coumadin - i.e. coumadin failure. Patient transition to apixaban Qualifiers: Affected thrombotic vein of extremity: tibial Qualified Code(s): I82.441 - Acute embolism and thrombosis of right tibial vein (6) Hyponatremia: Status: Acute Assessment and plan: Her hyponatremia is d/t her CHF, not SIADH. Improved with fluid restriction and diuretics. (7) Diabetes mellitus: Status: Chronic Assessment and plan: Blood sugars are coming under much improved control since I titrate up her Lantus. She currently on Lantus 20 units at bedtime. She is on a sliding scale moderate dose for correction and she is on a 1 unit per 10 g of carbohydrate scale for meals. Fasting blood sugar this morning was 121. Lunchtime is 238. (8) DVT prophylaxis: Status: Acute Assessment and plan: currently on Apixaban for her afib (9) Discharge planning issues: Status: Acute Assessment and plan: DNR/DNI Continues to require hospitalization. Anticipate discharge to swing bed in the next 24 to 48h. Subjective Subjective Interval history since last seen: Patient is feeling better today. She is more alert and oriented. She was very lethargic yesterday with low blood pressures. Blood pressure still remain on the soft side but she is asymptomatic from it. She denies any dizziness or lightheadedness and no shortness of breath or chest pain. She did well with physical therapy with the use of her walker. I think she is at a point where she can go into swing bed status today. She has chronic atrial fibrillation but seems to be tolerating the Toprol-XL 100 mg in the morning and diltiazem CD 180 mg at night. She remains apixaban for anticoagulation. She complete her antibiotic treatment for UTI and a repeat urine culture was no growth. As far as her right hip pain that is tolerable. I titrated down her fentanyl patch to 12 mcg per 72 hours from her previous dose of [address] Hernandez had increased the dose to 25 mcg prior to her hip surgery when she was having increased back and hip pain from walking on the fractured right femur. Exam Narrative Exam Narrative: Elderly female sitting up in her chair watching TV. She is alert and oriented person place time circumstance. She is not lethargic she is very attentive and conversant. Lungs are clear to auscultation. Heart is irregularly irregular at a controlled rate. Abdomen soft and nontender. Lower extremities with trace to 1+ edema. Right hip is not indurated nontender to palpation wound is dressed with a sterile dressing. Objective Objective Clinical Data: Abnormal lab results 10/10/19 10/10/19 10/10/19 Range/Units 07:35 07:35 07:35 RBC 2.97 L (4.00-5.20) m/cumm Hgb 8.6 L (12.0-15.5) g/dL Hct 26.1 L (36.0-46.0) % MPV 11.5 H (8.0-11.0) fL Absolute Monocytes 1.34 H (0.11-0.7) k/cumm Sodium 127 L (136-145) mmol/L Chloride 92 L (98-107) mmol/L BUN 35 H (7-18) mg/dL Creatinine 1.33 H (0.55-1.02) mg/dL Glucose 107 H (74-106) mg/dL Calcium 8.3 L (8.5-10.1) mg/dL Iron 28 L (50-170) ug/dL TIBC 215 L (250-450) ug/dL Transferrin % Sat 13 L (15-50) % NT-Pro-B Natriuret Pep 1597 H (<300) pg/mL Vital Signs Temperature 37.0 C 10/10/19 08:26 Temperature Source Tympanic 10/10/19 08:26 Pulse 85 10/10/19 08:26 Pulse Rhythm Irregular 10/10/19 08:45 Pulse 79 10/04/19 10:00 Respiratory Rate 16 10/10/19 08:26 Respiratory Effort Non-Labored 10/10/19 08:45 Respiratory Depth Normal 10/10/19 08:45 Respiratory Pattern Normal 10/10/19 08:45 Blood Pressure 94/56 L 10/10/19 08:26 Blood Pressure Mean 59 10/04/19 07:22 Blood Pressure Position Supine 10/03/19 03:45 Pulse Oximetry 96 10/10/19 08:26 Respiratory End-tidal CO2 32 10/04/19 15:42 Oxygen Delivery Method Room Air 10/10/19 08:26 Oxygen Flow Rate 0 10/10/19 08:26 Pain Level 0 10/10/19 08:26 Comment 10/07/19 16:35 Intake & Output 10/09/19 10/10/19 10/10/19 23:59 11:59 23:59 Intake Total 730 / 1450 420 / 420 Output Total 500 / 650 400 / 400 Balance 230 / 800 Weight 71.9 kg Intake: IV 250 / 270 Oral 480 / 1180 420 / 420 Output: Urine 500 / 650 400 / 400 Other: Urine Color Yellow Yellow Urine Appearance Clear Clear Urine Odor Normal Stool Size Moderate Stool Characteristics Soft Formed Brown Voiding Methods Bedside Commode Bedside Commode Laboratory Results WBC 9.18 k/cumm (4.4-10.8) 10/10/19 07:35 RBC 2.97 m/cumm (4.00-5.20) L 10/10/19 07:35 Hgb 8.6 g/dL (12.0-15.5) L 10/10/19 07:35 Hct 26.1 % (36.0-46.0) L 10/10/19 07:35 MCV 87.9 fL (80-95) 10/10/19 07:35 MCH 29.0 pg (27.0-33.0) 10/10/19 07:35 MCHC 33.0 g/dL (32.0-36.0) 10/10/19 07:35 RDW 14.1 % (11.7-14.6) 10/10/19 07:35 Plt Count 254 x1000/uL (130-400) 10/10/19 07:35 MPV 11.5 fL (8.0-11.0) H 10/10/19 07:35 Immature Gran % 0.9 % 10/10/19 07:35 Neutrophils % 58.4 10/10/19 07:35 Lymphocytes % 22.2 10/10/19 07:35 Monocytes % 14.6 10/10/19 07:35 Eosinophils % 3.6 10/10/19 07:35 Basophils % 0.3 10/10/19 07:35 Absolute Neutrophils 5.36 k/cumm (1.2-6.7) 10/10/19 07:35 Absolute Lymphocytes 2.04 k/cumm (1.2-3.4) 10/10/19 07:35 Absolute Monocytes 1.34 k/cumm (0.11-0.7) H 10/10/19 07:35 Absolute Eosinophils 0.33 k/cumm (0.0-0.7) 10/10/19 07:35 Absolute Basophils 0.03 k/cumm (0.0-0.2) 10/10/19 07:35 Differential Comment Rbc morph reviewed 10/10/19 07:35 RBC Morphology See below 10/10/19 07:35 Polychromasia Present 10/10/19 07:35 Hypochromasia 1+ 10/10/19 07:35 Poikilocytosis 1+ 10/10/19 07:35 Anisocytosis 1+ 10/10/19 07:35 PT 10.0 sec (9.3-11.0) 10/07/19 07:28 INR 1.0 (0.9-1.1) 10/07/19 07:28 APTT 54.8 sec (21.0-31.4) H 10/06/19 07:44 Sodium 127 mmol/L (136-145) L 10/10/19 07:35 Potassium 4.3 mmol/L (3.5-5.1) 10/10/19 07:35 Chloride 92 mmol/L (98-107) L 10/10/19 07:35 Carbon Dioxide 29.7 mmol/L (21.0-32.0) 10/10/19 07:35 Anion Gap 5.3 mmol/L (3-11) 10/10/19 07:35 BUN 35 mg/dL (7-18) H 10/10/19 07:35 Creatinine 1.33 mg/dL (0.55-1.02) H 10/10/19 07:35 Estimated GFR/1.73 m2 38.10 (mL/min/1.73m2) 10/10/19 07:35 Glucose 107 mg/dL (74-106) H 10/10/19 07:35 Hemoglobin A1c 7.7 % (3.8-5.6) H 10/01/19 13:30 Calcium 8.3 mg/dL (8.5-10.1) L 10/10/19 07:35 Magnesium 1.9 mg/dL (1.8-2.4) 10/06/19 07:44 Iron 28 ug/dL (50-170) L 10/10/19 07:35 TIBC 215 ug/dL (250-450) L 10/10/19 07:35 Transferrin % Sat 13 % (15-50) L 10/10/19 07:35 Ferritin 99 ng/mL (8-252) 10/10/19 07:35 Total Bilirubin 0.6 mg/dL (0.2-1.0) 10/01/19 13:30 AST 21 U/L (15-37) 10/01/19 13:30 ALT 20 U/L (14-59) 10/01/19 13:30 Alkaline Phosphatase 77 U/L (46-116) 10/01/19 13:30 Creatine Kinase 188 U/L (26-192) 10/05/19 08:20 Troponin I < 0.05 ng/mL (<0.06) 10/05/19 12:54 NT-Pro-B Natriuret Pep 1597 pg/mL (<300) H 10/10/19 07:35 Total Protein 7.9 g/dL (6.4-8.2) 10/01/19 13:30 Albumin 3.5 g/dL (3.4-5.0) 10/01/19 13:30 Triglycerides 62 mg/dL (<150) 10/02/19 06:07 Total Cholesterol 86 mg/dL (<200) 10/02/19 06:07 LDL Cholesterol, Calc 38 mg/dL (<100) 10/02/19 06:07 HDL Cholesterol 36 mg/dL (40-60) L 10/02/19 06:07 25-OH Vitamin D Total 44.7 ng/ml (30-100) 10/04/19 05:25 Urine Color Yellow (Yellow) 10/09/19 14:13 Urine Clarity Clear (Clear) 10/09/19 14:13 Urine pH 6.0 (5-8) 10/09/19 14:13 Ur Specific [place] 1.015 (1.005-1.025) 10/09/19 14:13 Urine Protein Negative mg/dL (Negative) 10/09/19 14:13 Urine Ketones Negative mg/dL (Negative) 10/09/19 14:13 Urine Blood Negative (Negative) 10/09/19 14:13 Urine Nitrite Negative (Negative) 10/09/19 14:13 Urine Bilirubin Negative (Negative) 10/09/19 14:13 Urine Urobilinogen 0.2 EU/dL (Up TO 0.2) 10/09/19 14:13 Ur Leukocyte Esterase Negative (Negative) 10/09/19 14:13 Urine RBC HPF (0-2) 10/03/19 13:32 Urine WBC HPF (0-5) 10/03/19 13:32 Ur Epithelial Cells HPF (Negative) 10/03/19 13:32 Urine Crystals HPF (Negative) 10/03/19 13:32 Urine Bacteria HPF (Negative) 10/03/19 13:32 Urine Casts LPF (Negative) 10/03/19 13:32 Urine Mucus (Negative) 10/03/19 13:32 Ur Culture Indicated? Color interference 10/03/19 13:32 Urine Glucose Negative mg/dL (Negative) 10/09/19 14:13 COVID-19 PCR Not Applicable 10/07/19 10:55 Nasopharyn COVID-19 PCR Not detected 10/07/19 10:55 Ref Test Perform Site See below 10/07/19 10:55
[2019-10-10 12:29] VITALS: BP 100/62; PULSE 88; RESP 16; TEMP 36.6; O2SAT 100
[2019-10-10] MEDS: IRON SUCROSE COMPLEX 300 MG in Normal Saline 250 ML 167 MG IVPB (12:48)
[2019-10-10 15:38] VITALS: BP 102/58; PULSE 71; RESP 18; TEMP 36.7; O2SAT 99
--- NOTE | 2019-10-10 16:14 | W.PM.DS.N ---
Date of service: 10/10/19 Time of Service: 16:15 DS: Diagnosis Discharge Diagnosis (1) Paroxysmal atrial fibrillation with RVR: Status: Chronic Asessment and Plan: Patient was taken off of warfarin due to high INR preoperatively and placed on a heparin drip perioperatively to treat her atrial fibrillation and right posterior tibial DVT. Postoperatively heparin was switched to apixaban. Initial rate control was achieved with IV diltiazem drip. She was converted to p.o. Lopressor and short acting diltiazem which was transition to Toprol-XL and Cardizem CD. (2) Acute on chronic systolic heart failure: Status: Chronic Asessment and Plan: Echocardiogram was performed preoperatively and demonstrated normal left ventricular chamber size and wall thickness with reduced ejection fraction of 45 to 50% with anteroapical hypokinesis. Normal right and left atrial size. Aortic valve was sclerotic without stenosis or regurgitation. 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 Mild to moderate tricuspid regurgitation is seen. Patient's heart failure was treated with dietary fluid restriction but because of her hyponatremia no sodium restriction was placed on her. Patient was treated with IV and oral Lasix. Patient was started on low-dose lisinopril at bedtime. (3) Iron deficiency anemia: Status: Acute Asessment and Plan: Patient sustained postop blood loss iron deficiency anemia. Because of her Jew status she did not receive a transfusion. She was started on venofer iron supplementation which will be continued during her rehab stay until we see a rise in her hemoglobin and iron levels. (4) Fracture of head of right femur: Status: Chronic Asessment and Plan: Patient underwent an anterior right anterior hip arthroplasty on October 04, [address] Ayaan Stovall. See his discharge instructions for postoperative care. Patient will enter into swing bed status for continued physical and Occupational Therapy. Patient is weightbearing as tolerated (5) Acute deep vein thrombosis (DVT) of right lower extremity: Status: Acute Asessment and Plan: Patient was found to have a right posterior tibial vein thrombosis as diagnosed by venous duplex scan on admission. This was present in spite of the fact that the patient had supratherapeutic INR on admission. Patient was treated with heparin perioperatively and transition to apixaban postoperatively. (6) Hyponatremia: Status: Chronic Asessment and Plan: Patient has a chronic stable hyponatremia with serum sodium's of 128-131. This is felt to be secondary to her CHF As well as her spironolactone. She transiently declined to a brianna of serum sodium of 119 but lynette to a level 127 at the time of discharge after treatment with Lasix and fluid restriction. (7) Diabetes mellitus: Status: Chronic Asessment and Plan: Patient presented to the hospital on no diabetic medications although she had clearly uncontrolled type 2 diabetes mellitus with hemoglobin A1c's of 7.7 to 8.1%. During this hospitalization patient was started on basal bolus insulin which will continue to be adjusted during her rehabilitation stay. Upon discharge from she should be considered for SGLT2 inhibitor to help reduce her morbidity from her CHF as well as her diabetes mellitus. (8) DVT prophylaxis: Status: Resolved Asessment and Plan: Patient will remain on apixaban for atrial fibrillation and DVT (9) Discharge planning issues: Status: Acute Asessment and Plan: Patient is being discharged to swing bed program at [facility] for short-term rehab stay. Afterwards her plan is to be discharged home with continued home health services including home PT, nursing, OT as well as palliative care. Discharge Plan Disposition Patient Disposition: [facility] SWING BED LEVEL 1 Condition: Improving Discharge Details Chief Complaint: Palpitatns Reason For Visit: RAPID AFIB,OLD R HIP FX Admit Date/Time: 10/01/19 15:40 Admit Provider: Cristin Finley Attending Provider: Cristin Finley Primary Care Provider: Rad Yeh ED Provider: [facility] Course Hospital Course: 84-year-old female with a past medical history significant for chronic atrial fibrillation, ST elevation myocardial infarction, heart failure with reduced ejection fraction, diabetes mellitus type 2, hypertension, hyperlipidemia, chronic anticoagulation with warfarin, chronic right femoral head fracture who is been having intractable right hip pain and difficulty walking and saw her medical director of hospice for preoperative clearance where she was found to be in a rapid heart rate in the 150s found to be in atrial flutter and sent to the emergency department for evaluation. There she was noted to have increased bilateral leg edema and signs of CHF as well as to be in rapid atrial fibrillation/atrial flutter. Patient was treated with IV Lopressor but eventually required IV diltiazem and an ultrasound of her legs revealed a right posterior tibial vein DVT despite the fact that the patient had been on warfarin with supratherapeutic INR 3.0. Patient was placed on a heparin drip and started on a diltiazem drip to control her atrial fibrillation rate and she was admitted to the intensive care unit. Consultations were obtained with Dr. Ayaan Stovall, orthopedic surgeon, regarding evaluation and treatment of her right femoral head fracture. He felt that once she was stabilized from CHF and atrial fibrillation standpoint that her right posterior tibial vein was not a contraindication to surgery. Dr. Cristin Finley, hospitalist, admitted the patient and treat the patient with diuretics and rate control with Lopressor and diltiazem. Patient was weaned off of IV diltiazem and placed on oral diltiazem short acting in addition to Lopressor. Preoperative echocardiogram was performed and demonstrated normal left ventricular chamber size and thickness with a hypokinetic anteroapical segment and a reduced ejection fraction of 45 to 50%. As the patient exhibited no ischemic symptoms preoperatively and the patient was willing to accept the risk of surgery and since the benefit of controlling her pain and improving her mobility was felt to be greater than her perioperative risk patient elected to proceed with surgery. Patient underwent right anterior hip replacement on October 04, [address] Stovall. Postoperatively she had a corneal abrasion which responded to topical antibiotics. She was found to have a UTI perioperatively that included a pansensitive E. coli. After completion of her perioperative Ancef she was placed on ceftriaxone 1 g IV daily beginning October 05, 2019. This was switched to Keflex on October 06, 2019 and completed on October 09, 2019. Follow-up urine culture was obtained and showed resolution of her E. coli UTI. Preoperatively she was not anemic but she sustained postoperative blood loss anemia and found to be iron deficient. She was started on venofer infusions prior to discharge to swing bed status. Patient is a Jehovah witness and refuses any blood products. Her hemoglobin on admission was 12.5 g. She reached a brianna of 8.6 g on October 06 and transiently lynette to 9.1 g on October 07 but on discharge she was down to 8.6 g. She was treated with a PPI prophylactically for GI protection. Physical therapy was consulted for progressive ambulation. Dr. Stovall cleared her for weightbearing as tolerated. Palliative care consult was obtained with Dr. Estrada on October 04, 2019 for continuity of care as the patient had been seeing Dr. Hernandez as an outpatient. Patient has a chronic hyponatremia and usually has a serum sodium of 128 to 130 but during this hospitalization patient had a brianna of 119 and she was treated simultaneously with IV normal saline while receiving Lasix. Her IV saline was discontinued on October 06, 2019 and she was placed on fluid restrictions at 2 L/day and Lasix was given at 40 mg twice a day. Her serum sodium gradually lynette to a level of 127 at the time of discharge. Her Lasix had to be transiently withheld because of mild hypotension for which she was symptomatic and she was given a single fluid bolus of 250 mL of saline. Patient was started on low-dose lisinopril 2.5 mg during this hospitalization and her short acting Lopressor and diltiazem CD were converted to long-acting forms. Patient is atrial fibrillation remain relatively well controlled at rest but with activity her heart rate would climb into the 110s to 120s. Her heart rate would go as high as 140. On the day of discharge the patient was feeling markedly better and had no palpitations nor any chest pain or chest pressure nor any dizziness. On the day of discharge her blood pressure was on the lower end of normal running 100/62-102/58 however she was asymptomatic. She started on venofer 300 mg IV on her last hospital day. She tolerated this well will continue to receive venofer during her rehab stay. Blood sugars were treated with sliding scale insulin as well as bolus insulin with Lantus. Her heparin drip had been discontinued postoperatively and she was started on apixaban for long-term anticoagulation for treatment of her DVT as well as prevention of strokes from her atrial fibrillation. She will continue on a fluid restricted diet at 1500 mL/day and she will continue to receive Lasix but at a reduced dose of 40 mg daily. Her labs will continue to be monitored on a periodic basis weekly. Home Meds and New Rx's Prescriptions: No Action acetaminophen 500 mg capsule 500 mg PO BID PRN (Reason: pain) RF: 0 atorvastatin 40 mg tablet 40 mg PO HS Qty: 90 RF: 4 nitroglycerin 0.4 mg tablet, sublingual 0.4 mg Sublingual Q 5 MIN PRN Qty: 25 RF: 4 pantoprazole 40 mg tablet,delayed release (DR/EC) 40 mg PO DAILY Qty: 90 RF: 4 (DME) pen needle, diabetic [BD Ultra-Fine Juliann Pen Needle] 32 gauge x 5/32 needle See Dose Instructions .ROUTE .MEDSUPPLY Qty: 100 RF: 3 spironolactone 50 mg tablet 50 mg PO DAILY Qty: 90 RF: 3 amlodipine 5 mg tablet 5 mg PO DAILY Qty: 90 RF: 3 multivitamin [Daily Multi-Vitamin] 1 EACH tablet 1 tab PO DAILY RF: 0 ascorbic acid (vitamin C) 500 MG tablet 2 tab PO DAILY PRN RF: 0 Hold Instructions: Patient reports getting her vitamin C from multivitamin. chromium picolinate 1,000 MCG tablet 1,000 mcg PO daily prn RF: 0 Hold Instructions: Patient reports not taking for a while. omega 600 mg PO DAILY RF: 0 Hold Instructions: Patient not taken in a while. metoprolol succinate 50 mg tablet extended release 24 hr 150 mg PO DAILY Qty: 90 RF: 11 furosemide 20 mg tablet 40 mg PO DAILY Qty: 180 RF: 3 aspirin [Adult Low Dose Aspirin] 81 mg tablet,delayed release (DR/EC) 81 mg PO DAILY RF: 0 fentanyl 25 mcg/hr patch 72 hour 1 patch TD Q72H MDD 25 mcg Qty: 10 RF: 0 warfarin 5 mg tablet 2.5 mg PO DIRECTED RF: 0 Tresiba FlexTouch U-100 100 unit/mL (3 mL) insulin pen 18 unit SC QHS RF: 0 Discharge Instructions Additional Instructions: Dr. Stovall's Total Hip Discharge Instructions Activity: The most important activity is to walk and and increasing independence with daily activities. You should try to take short walks a few times a day. You have no restrictions on movement or positioning, but do not try to force what you do. You will find some stiffness and weakness with hip flexion (lifting your knee). Do not try to strengthen this too early, continue to practice walking and stairs and this will come. Physical therapy should focus on general amatory capacity as well as strengthening hip flexion and hip abduction. Additionally, focus should be given to foot and ankle range of motion and strength. I would not recommend any brace to the foot and ankle at this time unless she shows no improvement and it seems to be interfering with her ambulatory capabilities. She should use a walker at all times. - You should wear the GRAYSON hose on both legs for 2 weeks. You may remove those at night. These prevent blood pooling and swelling. Dressing: Keep the surgical dressing in place for at least one week, although it may stay in place untill follow-up. It may get wet after 3 days but avoid soaking the dressing. If it gets wet, just lightly pat dry. Most people prefer to cover the dressing with some ClingWrap, Saran Wrap, to keep it dry. After the first week it may be removed if desired and then replaced with light gauze and tape or nothing. It is important to always keep some gauze or the dressing between skin folds, especially when you are sitting, so the incision is not folded over on itself at the belly fold. Follow-up: 4 weeks. If you have any acute concerns or questions, please do not hesitate to contact the office at [phone]. You may contact Dr. Stovall with any questions after hours through the hospital at [phone] or on his cell phone at [phone]. Referrals: Ayaan Stovall MD [ [facility] STAFF PHYSICIAN] - Activity:: Activity as Tolerated Equipment/Supplies:: Walker Diet:: Other Discharge Orders Discharge Orders: Discharge Order (Routine); Ordered 10/10/19 Ordered By: Yong Cruz Discharge Data Discharge Date/Time-TO BE ENTERED AT DEPARTURE: 10/10/19 16:05 DS: Summary Status at Discharge Functional status at discharge: uses cane/walker Overall status at discharge: patient is progressing back to baseline Mental Status: mental status grossly normal Speech and Movement: speech and movement normal Mood: congruent mood Affect: normal affect Exam Narrative Exam Narrative: Elderly female sitting up in her chair watching TV. She is alert and oriented person place time circumstance. She is not lethargic she is very attentive and conversant. Lungs are clear to auscultation. Heart is irregularly irregular at a controlled rate. Abdomen soft and nontender. Lower extremities with trace to 1+ edema. Right hip is not indurated nontender to palpation wound is dressed with a sterile dressing. Psych Mental Status: mental status grossly normal Speech and Movement: speech and movement normal Mood: congruent mood Affect: normal affect DS: Data Vitals/I&O Vitals and I&O: Vital Signs Temperature 36.7 C 10/10/19 15:38 Temperature Source Temporal Artery Scan 10/10/19 15:38 Pulse 71 10/10/19 15:38 Pulse Rhythm Irregular 10/10/19 08:45 Pulse 79 10/04/19 10:00 Respiratory Rate 18 10/10/19 15:38 Respiratory Effort Non-Labored 10/10/19 08:45 Respiratory Depth Normal 10/10/19 08:45 Respiratory Pattern Normal 10/10/19 08:45 Blood Pressure 102/58 L 10/10/19 15:38 Blood Pressure Mean 59 10/04/19 07:22 Blood Pressure Position Supine 10/03/19 03:45 Pulse Oximetry 99 10/10/19 15:38 Respiratory End-tidal CO2 32 10/04/19 15:42 Oxygen Delivery Method Room Air 10/10/19 15:38 Oxygen Flow Rate 0 10/10/19 15:38 Pain Level 0 10/10/19 15:38 Comment 10/07/19 16:35 Intake & Output 10/09/19 10/10/19 10/10/19 23:59 11:59 23:59 Intake Total 730 / 1450 440 / 680 240 / 680 Output Total 500 / 650 400 / 400 Balance 230 / 800 40 / 280 240 / 280 Weight 71.9 kg Intake: IV 250 / 270 Oral 480 / 1180 420 / 660 240 / 660 Output: Urine 500 / 650 400 / 400 Other: Urine Color Yellow Yellow Yellow Urine Appearance Clear Clear Clear Urine Odor Normal Comment Unable to assess volume, contaminated with stool. Stool Size Moderate Stool Characteristics Soft Formed Brown Voiding Methods Bedside Commode Bedside Commode Bedside Commode Data Completed and Pending Labs on day of discharge: Labs from last 24 hours 10/10/19 10/10/19 10/10/19 07:35 07:35 07:35 WBC 9.18 RBC 2.97 L Hgb 8.6 L Hct 26.1 L MCV 87.9 MCH 29.0 MCHC 33.0 RDW 14.1 Plt Count 254 MPV 11.5 H Immature Gran % 0.9 Neutrophils % 58.4 Lymphocytes % 22.2 Monocytes % 14.6 Eosinophils % 3.6 Basophils % 0.3 Absolute Neutrophils 5.36 Absolute Lymphocytes 2.04 Absolute Monocytes 1.34 H Absolute Eosinophils 0.33 Absolute Basophils 0.03 Differential Comment Rbc morph reviewed RBC Morphology See below Polychromasia Present Hypochromasia 1+ Poikilocytosis 1+ Anisocytosis 1+ Sodium 127 L Potassium 4.3 Chloride 92 L Carbon Dioxide 29.7 Anion Gap 5.3 BUN 35 H Creatinine 1.33 H Estimated GFR/1.73 m2 38.10 Glucose 107 H Calcium 8.3 L Iron 28 L TIBC 215 L Transferrin % Sat 13 L Ferritin 99 NT-Pro-B Natriuret Pep 1597 H COVID-19 PCR Nasopharyn COVID-19 PCR Ref Test Perform Site 10/07/19 10:55 WBC RBC Hgb Hct MCV MCH MCHC RDW Plt Count MPV Immature Gran % Neutrophils % Lymphocytes % Monocytes % Eosinophils % Basophils % Absolute Neutrophils Absolute Lymphocytes Absolute Monocytes Absolute Eosinophils Absolute Basophils Differential Comment RBC Morphology Polychromasia Hypochromasia Poikilocytosis Anisocytosis Sodium Potassium Chloride Carbon Dioxide Anion Gap BUN Creatinine Estimated GFR/1.73 m2 Glucose Calcium Iron TIBC Transferrin % Sat Ferritin NT-Pro-B Natriuret Pep COVID-19 PCR Not Applicable Nasopharyn COVID-19 PCR Not detected Ref Test Perform Site See below Preliminary micro results at discharge 10/09/19 14:13 Urine Culture - Preliminary Urine - Clean Catch Gram Positive Marlen,Mixed [facility] Medical History (Updated 10/10/19 @ 19:02 by Yong Cruz) Acute on chronic systolic heart failure (Chronic) Arthritis (Acute) ASCVD (arteriosclerotic cardiovascular disease) (Acute 04/22/15) [place] with out of hosp cardiac arrest LAD stent, LVEF 35% Atrial fibrillation (Acute 05/27/11) paroxysmal Oct 2009 Carpal tunnel syndrome on both sides (Acute) CHF (congestive heart failure) (Chronic) Chronic low back pain (Chronic) Complementary medicine (Chronic) homeopathic primarily: DNI (do not intubate) (Acute) DNR (do not resuscitate) (Acute) Essential hypertension (Acute 01/04/13) echo 2007 LVH uncontrolled BP (neg w/u for pheo) Foot drop, left (Acute) GERD (gastroesophageal reflux disease) (Chronic) Hyperlipidemia (Acute) Hypertensive retinopathy (Acute) Impaired left ventricular function (Acute ~05/2019) [facility] [place]; 35% Low back pain (Acute) Lumbar stenosis (Acute) Mild obstructive sleep apnea (Acute 11/17/15) [facility] NSTEMI (non-ST elevated myocardial infarction) (Acute ~05/2019) [facility] [place] Palliative care patient (Acute) Pedal edema (Acute) POLST (Physician Orders for Life-Sustaining Treatment) (Chronic) 3 on file Refusal of blood transfusions as patient is Jew (Acute) Renal insufficiency (Chronic) Type II diabetes mellitus with complication, uncontrolled (Acute 05/14/14) Surgical History History of appendectomy (Chronic) Social History Smoking/Tobacco Use Status: Never Second Hand Exposure: No Alcohol Intake: never Drug use: Never Substance use type: does not use Caregiver/Support person: No Household members: none Housing: house Number of Children: 4 number of grandchildren: 5 Communication Needs: Corrective Lenses Education Level: high school Do you need help understanding health information?: Often current occupation: Retired Pets and animals: Yes Pets and animals: cat(s) and dog(s) Current gender identity: female What is your relationship status?: How often do you talk on the phone with friends or family?: three or more times per week How often do you get together with friends or relatives?: three or more times per week Panel score (0-1 are the most socially isolated patients): 1 What type of physical activity do you participate in: assisted ambulation Duration: < 15 minutes/day Frequency: does not exercise Faviola/Mosque: Jew Special faviola needs: Yes (no transfusion) Agree to transfusion: No Seatbelt use: always Drive intox or ride w/intox high lift driver: No Do you feel safe at home: Yes Do you feel safe in your relationship?: Yes Additional Social history: Lives alone but sons and their spouses check in regularly. Getting some HH services. ALso hires [employer] to help with ADLs. Hip pain bad lately; has known fracture, which is old--not sure when she broke her hip. Interested in completing COLST--done today
== END 2019-10-10 16:05 | disposition swing bed (61) | DRG 981 ==
LOC: ER 13:20 → ICU 18:17 → MS 10-09 10:32
PROVIDERS: Family Medicine; Internal Medicine; Student in an Organized Health Care Education/Training Program; Admitting Provider Internal Medicine; Emergency Provider Student in an Organized Health Care Education/Training Program; PCP Family Medicine; Visit Provider Internal Medicine
PROC: 0SR904A Replacement of Right Hip Joint with Ceramic on Polyethylene Synthetic Substitute, Uncemented, Open Approach (ICD-10-PCS; CPT 27130; principal; 2019-10-04 12:15)
DX: I48.0 Paroxysmal atrial fibrillation (principal); S72.051A Unspecified fracture of head of right femur, initial encounter for closed fracture; I50.23 Acute on chronic systolic (congestive) heart failure; I82.441 Acute embolism and thrombosis of right tibial vein; E87.1 Hypo-osmolality and hyponatremia; D62 Acute posthemorrhagic anemia; N39.0 Urinary tract infection, site not specified; R79.1 Abnormal coagulation profile; T45.515A Adverse effect of anticoagulants, initial encounter; Z79.01 Long term (current) use of anticoagulants; I08.3 Combined rheumatic disorders of mitral, aortic and tricuspid valves; Y83.8 Other surgical procedures as the cause of abnormal reaction of the patient, or of later complication, without mention of misadventure at the time of the procedure; X58.XXXA Exposure to other specified factors, initial encounter; E11.65 Type 2 diabetes mellitus with hyperglycemia; I11.0 Hypertensive heart disease with heart failure; E78.5 Hyperlipidemia, unspecified; B96.20 Unspecified Escherichia coli [E. coli] as the cause of diseases classified elsewhere; E61.1 Iron deficiency; Z51.5 Encounter for palliative care; S05.01XA Injury of conjunctiva and corneal abrasion without foreign body, right eye, initial encounter; K21.9 Gastro-esophageal reflux disease without esophagitis; Z66 Do not resuscitate; I25.2 Old myocardial infarction; Z71.3 Dietary counseling and surveillance; K56.41 Fecal impaction; G47.33 Obstructive sleep apnea (adult) (pediatric); E11.42 Type 2 diabetes mellitus with diabetic polyneuropathy; Z53.1 Procedure and treatment not carried out because of patient's decision for reasons of belief and group pressure; Z03.818 Encounter for observation for suspected exposure to other biological agents ruled out
CPT/HCPCS: 27130; 36415; 80048; 80053; 80061; 82306; 82550; 85027; 87077; 93005; 93306; 96365; 96368; 96375; 97110; 97163; 97530; 99222; 99223; 99232; 99233; 99239; 99253; 99291; NC; U0003; 72170; 73501; 81003; 81015; 82728; 83036; 83540; 83550; 83735; 83880; 84484; 85025; 85610; 85730; 87086; 87186; 93010; 93970; 99213; J0690; J0696; J1100; J1756; J1885; J1940; J1941; J2001; J2405; J3475

== ENCOUNTER 2019-10-10 15:59 | Inpatient (IN) | payer MEDICARE, OTHER, SELFPAY ==
--- NOTE | 2019-10-10 11:19 | PT.INIE ---
Date of service: 10/10/19 Time of Service: 10:29 PT Notes Visit Reasons: SB1 Physical Therapy Inpatient Initial Evaluation Date: 10/10/2019 Referring Doctor: Ayaan Stovall MD PT Orders: PT CONSULT: Status post Ortho surgery Precautions: Fall. Standard. WBAT on right LE Patient Profile/Admitting Diagnosis: Linda converts to swing bed level 1 of care as of 10/10/2019 and is re-evaluated for continued skilled physical therapy services and continued medical management of her acute congestive heart failure related to PAF with RVR. Patient is status post right total hip arthroplasty on postoperative day 6. PMHX: Medical History Arthritis (Acute) ASCVD (arteriosclerotic cardiovascular disease) (Acute 04/22/15) [place] with out of hosp cardiac arrest LAD stent, LVEF 35% Atrial fibrillation (Acute 05/27/11) paroxysmal Oct 2009 Carpal tunnel syndrome on both sides (Acute) CHF (congestive heart failure) (Chronic) Chronic low back pain (Chronic) Complementary medicine (Chronic) homeopathic primarily DNI (do not intubate) (Acute) DNR (do not resuscitate) (Acute) Essential hypertension (Acute 01/04/13) echo 2007 [facility] uncontrolled BP (neg w/u for pheo) Foot drop, left (Acute) GERD (gastroesophageal reflux disease) (Chronic) Hip pain, right (Chronic) Hyperlipidemia (Acute) Hypertensive retinopathy (Acute) Impaired left ventricular function (Acute ~05/2019) [facility] [place] Low back pain (Acute) Lumbar stenosis (Acute) Mild obstructive sleep apnea (Acute 11/17/15) [facility] NSTEMI (non-ST elevated myocardial infarction) (Acute ~05/2019) [facility] [place] (Acute) Pedal edema (Acute) POLST (Physician Orders for Life-Sustaining Treatment) (Chronic) done 08/08/19 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 She was independent with a 4-wheeled walker for all mobility ADL performance. She receives Meals on Wheels. Equipment Owned/DME: 4WW Subjective: Linda feels significantly better today and looks forward to doing more with physical therapy. She states that her blood pressures have been better. She continues to report being a little tired today. Objective: General Observation: Mepilex Ag over surgical incision. Telemetry monitoring in place. Edema noted to bilateral legs with the right more than the left. IV access in the right UE. New foot drop on the R seen. Mental Status: Alert and oriented x4 Pain: 4/10 in the right hip ROM: Right Upper Extremity: WFL Left Upper Extremity: WFL. Right Lower Extremity: No active ankle DF. Toe extension available up to 10 degrees. Left Lower Extremity: WFL. Ankle DF to neutral. Strength: Right Upper Extremity: WFL Left Upper Extremity: WFL. Ankle DF 3-/5. Right Lower Extremity: Good quad activation with quad sets. Ankle DF 1/5. Toe extension 2-/5. Left Lower Extremity: Grossly WFL. Ankle DF 3-/5. Sensation: Intact as to pain and pressure on bilateral lower extremities. Bed Mobility/Transfers: Bed Mobility/Transfers: Supine to sit contact-guard assist Sit to stand contact-guard assist Stand to sit contact-guard assist Bed to chair contact-guard assist Chair to bed contact-guard assist Gait: Linda tolerated level surface ambulation of 15 feet + 30 feet +50 feet using the front wheeled walker with WBAT on the right with contact-guard assist. Decreased heel strike due to decreased DF on bilateral lower extremities with the right more than the left. Decreased step height bilaterally with the right more affected than the left. Decreased elin. Step-to gait pattern. Balance: Static Sitting: Normal Dynamic Sitting: Normal Static Standing: Fair Dynamic Standing: Fair Special Tests: Mobility Limitations Standardized Measure [facility] AM-PAC 6 clicks Basic Mobility Inpatient Short Form: Raw Score: 17 CMS Score: 50% deficit Informed Consent/Education: Patient instructed in purpose of PT consult and plan of care. Assessment: Cornelia has demonstrated improvement in functional mobility performance but continues to require use of a front wheeled walker and assistance of one caregiver for safety of transfer and ambulation task performance. There is slow motor return of toe extension on the right side and contraction of ankle to flexors but not strong enough to cause active dorsiflexion as of yet. Patient is on postoperative day 6 and will continue to benefit from skilled physical therapy services to address ongoing impairments in strength, range of motion, and mobility level. Patient presents with clinical signs and symptoms consistent with current/admitting diagnoses that have resulted to mobility limitations, gait instability, generalized weakness, and impairment of motor control as demonstrated by the following impairment level findings: 1. Decreased strength to right hip and B ankle major muscle groups 2. Impaired sitting/standing balance 3. Impaired activity tolerance 4. Limitation of joint range of motion in B ankles Impairments are contributing to the following functional limitations: 1. Dependent bed mobility skills 2. Increased dependence with transfers 3. Inability to safely ambulate without assistive device and physical assistance 4. Increase completion time for mobility ADL performance 5. Increased fall risk 6. Inability to negotiate steps alone safely Patient is assessed as a [id number] moderate complexity based on the following: History: 84-year-old female with impairment level findings, functional limitations, and past medical history as indicated above Examination: Demonstrable impairment in strength, balance, and mobility level with underlying impairments and functional limitations as documented above Presentation: Evolving Decision Makin moderate complexity Goals: Goals X1 week 1. Supine-Sit independent 2. Sit-Supine independent 3. Sit-Stand supervision 4. Stand-Sit supervision 5. Bed-Chair standby assist 6. Chair-Bed standby assist 7. Supervision gait on level surface with use of least restrictive device for at least 50 feet without report of pain nor dyspnea 8. Supervision stair negotiation while holding onto bilateral rails for at least 5steps without report of pain nor dyspnea 9. Independent with home exercise program 10. Good static and dynamic standing balance/tolerance Plan of Care/Treatment Plan: 1-2x/day, 7 days/week x 1 week. Plan of care has been reviewed with the [employer] providing the service under Physical Therapy direction. Initiate Physical Therapy intervention for strengthening, bed mobility, transfers, gait, stairs, balance training, use of assistive device. DISCHARGE RECOMMENDATIONS: Patient will benefit from nursing home facility placement for continued skilled physical therapy services in order to progress mobility level, strength, and balance in preparation for a safe discharge to home. TREATMENT CODE/TIME: 21977 x 25 minutes, 94693 x 11 minutes beginning at 10:29 AM. Thank you for the opportunity to participate in the care of this patient. Alxi Hannah PT, DPT, CLT [facility] [place], [place]
[2019-10-10 15:00] VITALS: BP 102/58; PULSE 71; RESP 19; TEMP 36.7; O2SAT 99
--- NOTE | 2019-10-10 15:55 | CM.SWINGPC ---
- If Service Date Differs Date of service: 10/10/19 Time of Service: 15:55 Swingbed Plan of Care Plan of care: SWING BED PROGRAM ACTIVITIES/DISCHARGE PLAN OF CARE ACTIVITIES PLAN Date:10/10/19 Identified Need:Individual needs and activities Intervention/Plan:Activity Cart, television, phone in the room, she may have one visitor and supportive Initials [facility] DISCHARGE PLAN Date:10/10/19 Identified Need: PT and OT to return home with home health services for transition to home based services for nursing, PT and OT. Intervention/Plan: PT and OT BID for strengthening InitialsKH
--- NOTE | 2019-10-10 16:03 | CMSA_ITS ---
- If Service Date Differs Date of service: 10/11/19 Time of Service: 13:45 SB Psychosocial/Act.Assessment - Hospital Admission Admission Date: 10/01/19 Admission From:: Home Diagnosis:: Right total hip - Swing Bed Admission Swing Bed Admit Date:: 10/10/19 Swing Bed Level of Care: Level 1/SNF - Social Supports PREVIOUS FUNCTIONAL STATUS/SOCIAL/FAMILY SUPPORTS:: Linda lives at home alone her children are grown. She state she has a supportive family. Linda has home health nursing and PT. - Prior to Admission Living Arrangements/Environment Prior to Admission:: Linda lives at home alone in [facility]. She is her son Robert is her DPOA and her main support. 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 - Education Highest Grade Completed:: 12 Where did you attend School:: [employer]. - Work History Employment Status:: Retired - : No 's Spouse: Yes - Benefits Financial: Social Security, Other Pension, Medicare - Gnosticism Active Pentecostalism Member:: Yes Pentecostalism Affliation: [employer] Jossue Vargas Importance of Faviola:: Important she states Sergio is how she go through all of her pain prior to surgery. - Advance Directives for Healthcare Advance Directives for Healthcare: Advance Directives Advance Directive Agent: Caesar Michele (Son) - Interests Hobbies:: Likes to read author Arina Saenz Reading:: Reading clean novels Other Activities:: Word search - Present Functional Status Physical Abilities:: limited due to right hip/femur repair Cognitive:: Intact, alert and engaged Communication:: Able to make needs known and engages well. Sensory Systems: Glasses, walker for ambulation. Behavior:: Engaged, appropiate, kind - Medical History PAST MEDICAL HISTORY/PAST SURGICAL HISTORY:: Arthritis (Acute). ASCVD (arteriosclerotic cardiovascular disease) (Acute 04/22/15). [place] with out of hosp cardiac arrest. LAD stent, LVEF 35%. Atrial fibrillation (Acute 05/27/11). paroxysmal Oct 2009. Carpal tunnel syndrome on both sides (Acute). CHF (congestive heart failure) (Chronic). Chronic low back pain (Chronic). Complementary medicine (Chronic). homeopathic primarily: DNI (do not intubate) (Acute). DNR (do not resuscitate) (Acute). Essential hypertension (Acute 01/04/13). echo 2008 [facility]. uncontrolled BP (neg w/u for pheo). Foot drop, left (Acute). GERD (gastroesophageal reflux disease) (Chronic). Hip pain, right (Chronic). Hyperlipidemia (Acute). Hypertensive retinopathy (Acute). Impaired left ventricular function (Acute ~05/2019). [facility] [place]; [facility]. Low back pain (Acute). Lumbar stenosis (Acute). Mild obstructive sleep apnea (Acute 11/17/15). [facility]. NSTEMI (non-ST elevated myocardial infarction) (Acute ~05/2019). [facility] [place]. Palliative care patient (Acute). Pedal edema (Acute). POLST (Physician Orders for Life-Sustaining Treatment) (Chronic). done 08/08/19. Refusal of blood transfusions as patient is Rastafari (Acute). Renal insufficiency (Chronic). Type II diabetes mellitus with complication, uncontrolled (Acute 05/14/14) General Health:: Fair Past Psychiatric Treatment:: none - Admission Data Reason for Swing Bed Admission:: Short term rehab status post right femur and hip repair. Discharge Plan:: Linda will return to her home with home health services nursing, PT and OT. She will need 7-14 days of PT. Assessment: Linda is alert and engaged during assessment she states she has had difficulty walking long distance due to her heart she gets tired quickly. She is hopeful to get stronger and return home. Linda will recieve PT while in [place] to meet her goals of returning home with home health services and family/friend support. Damper Worker: Jillian Bautista Date Assessment was completed:: 10/11/19
--- NOTE | 2019-10-10 16:11 | PCPN_ITS ---
Date of service: 10/10/19 Assessment and Plan Assessment and plan (1) Fracture of head of right femur: Status: Chronic Assessment and plan: Feeling significantly better since her operative repair. Was on 25 mcg fentanyl patch. Feels she can wean down to 12 mcg. Plan is for her to try to come off it entirely within the next month or two. Qualifiers: Encounter type: initial encounter Fracture type: closed Qualified Code(s): S72.051A - Unspecified fracture of head of right femur, initial encounter for closed fracture (2) Chronic HFrEF (heart failure with reduced ejection fraction): Status: Chronic Assessment and plan: We discussed her sodium heavy diet at her last home visit. She was eating a jar of salty dill pickles every few days. I think she now understands how important it is for her to limit this food dramatically. She knows if she wants to get active, she has to take care of her heart. (3) Goals of care, counseling/discussion: Status: Acute Assessment and plan: Her goal is to get back to her home, where she lives alone, with frequent visits from her sons and their families (all but one live locally). Once COVID-19 calms down, she wants to get back to advent, too. Subjective Subjective Patient reports: feels better, pain is less and tolerating a regular diet Interval history since last seen: Linda was seen earlier in this admission by my colleague Dr Estrada. She has since had her hip repaired. 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 Her hemoglobin has dropped no farther than 8.6. She is pleased. Her pain is already much better than it had been at home, prior to this surgery. She has more energy. Her appetite is better. She is working well with PT. Overall, she is very pleased. She did not want to go to any of the local SNFs. She opted to change to swing better status here as the PT staff thought that she would not need much rehab before being able to go home. She is very motivated to get better. Exam Narrative Exam Narrative: General: Very pleasant elderly female, sitting up in a chair, comfortable, A&Ox3 HEENT: EOMI, MMM Heart: RRR, no m/r/g Lungs: CTAB Abdomen: soft, nontender, nondistended Extremities: R hip wound dressed - c/d/i, 1+ LLE edema, RLE is slightly more edematous. Psych Mental Status: mental status grossly normal Speech and Movement: speech and movement normal Mood: congruent mood Affect: normal affect Objective Objective Clinical Data: Intake & Output 10/09/19 10/10/19 10/10/19 23:59 11:59 23:59 Weight 158 lb 8.198 oz
--- NOTE | 2019-10-10 16:16 | W.PM.HP.N ---
Date of service: 10/10/19 Time of Service: 16:16 Assessment and Plan Assessment and plan (1) Fracture of head of right femur: Status: Chronic Assessment and plan: Continue PT and OT through swing bed status to improve weightbearing and ambulatory function and strength as well as to improve her ADL performance Qualifiers: Encounter type: initial encounter Fracture type: closed Qualified Code(s): S72.051A - Unspecified fracture of head of right femur, initial encounter for closed fracture (2) Ambulatory dysfunction: Status: Acute Assessment and plan: as above (3) Atrial fibrillation: Status: Acute Assessment and plan: continue Elquis, Cardizem CD and Toprol XL. May use po lopressor for sustained HR over 120 bpm. Qualifiers: Atrial fibrillation type: longstanding persistent Qualified Code(s): I48.11 - Longstanding persistent atrial fibrillation (4) Essential hypertension: Status: Acute Assessment and plan: continue low dose lisinopril along w/ above CCB and BB (5) Hyponatremia: Status: Chronic Assessment and plan: avoid use of spironolactone. continue po fluid restriction along w/ her daily furosemide. monitor labs weekly (6) Iron deficiency anemia: Status: Acute Assessment and plan: finish loading doses of Venofer. She received 300 mg on her last acute inpatient day. Will repeat two more daily doses. Recheck weekly CBC Qualifiers: Iron deficiency anemia type: unspecified iron deficiency Qualified Code(s): D50.9 - Iron deficiency anemia, unspecified (7) Chronic HFrEF (heart failure with reduced ejection fraction): Status: Acute Assessment and plan: continue lasix, lisinopril and Toprol XL. Ideally should not be on diltiazem however, this was the only way to control her afib rates. However, in future if afib becomes recurrent problem then I would dc her diltiazem in favor of digoxin as long as her potassium level is maintained at 4 or higher. She had some transient hyperkalemia ( up to 5.7) for which she was treated w/ Lokelma. I think that simply stopping her spironolactone should be sufficient. However, since I put her on lisinopril she will need close monitoring of her potassium levels. I have ordered follow up labs for tomorrow. (8) Acute deep vein thrombosis (DVT) of right lower extremity: Status: Acute Assessment and plan: cont. treatment w/ Apixaban for her afib as well as her DVT Qualifiers: Affected thrombotic vein of extremity: tibial Qualified Code(s): I82.441 - Acute embolism and thrombosis of right tibial vein (9) Type II diabetes mellitus with complication, uncontrolled: Status: Acute Assessment and plan: cont. basal/bolus insulin treatment w/ corrective sliding scale. consider Rx for an SGLT2 inhibitor upon discharge home. (10) Hyperlipidemia: Status: Acute Assessment and plan: patient apparently was on atorvastatin at home. She is now on diltiazem CD, therefore, I will put her on Crestor at HS (less interaction w/ CCB) Qualifiers: Hyperlipidemia type: pure hypercholesterolemia Qualified Code(s): E78.00 - Pure hypercholesterolemia, unspecified (11) Discharge planning issues: Status: Acute Assessment and plan: Patient will return home once she has completed her inpatient rehab stay. History of Present Illness History of Present Illness Chief Complaint: Status post right anterior hip replacement Narrative: 84-year-old female with a past medical history significant for chronic atrial fibrillation, ST elevation myocardial infarction, heart failure with reduced ejection fraction, diabetes mellitus type 2, hypertension, hyperlipidemia, chronic anticoagulation with warfarin, chronic right femoral head fracture who is been having intractable right hip pain and difficulty walking who was admitted to [facility] on October 01, 2019 through October 10, 2019 for treatment of rapid atrial fibrillation/atrial flutter with acute exacerbation of chronic heart failure with reduced ejection fraction and a new right posterior tibial vein DVT while on Coumadin with supratherapeutic INR levels. Hospital course was complicated by acute exacerbation of chronic hyponatremia as well as an E. coli UTI. See my discharge summary for details. Patient is now admitted to swing bed status for continued therapy including P.T. and O.T. prior to discharge home. Patient has been started on Venofer for her acute blood loss iron deficiency anemia. She is currently on Toprol XL and Cardizem CD for afib/flutter rate control and Apixaban for stroke prevention as well as treatment of R. post tib. vein thrombosis. She is on 1.5 L fluid restricted diet along w/ daily lasix. Spironolactone has not been reordered d/t her hyponatremia. She is on basal/bolus insulin for her type 2 DM but should be considered for an SGLT2 inhibitor upon discharge to treat her DM as well as reduce her morbidity from her CHF. Review of Systems All systems reviewed & are unremarkable except as noted in HPI and below [facility] Medical History (Updated 10/10/19 @ 19:21 by Yong Cruz) Acute on chronic systolic heart failure (Resolved) Arthritis (Acute) ASCVD (arteriosclerotic cardiovascular disease) (Acute 04/22/15) [place] with out of hosp cardiac arrest LAD stent, LVEF 35% Atrial fibrillation (Acute 05/27/11) paroxysmal Oct 2009 Carpal tunnel syndrome on both sides (Acute) CHF (congestive heart failure) (Chronic) Chronic HFrEF (heart failure with reduced ejection fraction) (Acute) Chronic low back pain (Chronic) Complementary medicine (Chronic) homeopathic primarily: DNI (do not intubate) (Acute) DNR (do not resuscitate) (Acute) Essential hypertension (Acute 01/04/13) echo 2007 [facility] uncontrolled BP (neg w/u for pheo) Foot drop, left (Acute) GERD (gastroesophageal reflux disease) (Chronic) Hyperlipidemia (Acute) Hypertensive retinopathy (Acute) Hyponatremia (Chronic) Impaired left ventricular function (Acute [place]/2019[place] [facility] [place] Low back pain (Acute) Lumbar stenosis (Acute) Mild obstructive sleep apnea (Acute 11/17/15) COUNTS INCLUDE 234 BEDS AT THE [facility] NSTEMI (non-ST elevated myocardial infarction) (Resolved ~05/2019) [facility] care [place] (Acute) Pedal edema (Resolved) POLST (Physician Orders for Life-Sustaining Treatment) (Chronic) 3 on file Refusal of blood transfusions as patient is Presybeterian (Acute) Renal insufficiency (Chronic) Type II diabetes mellitus with complication, uncontrolled (Acute 05/14/14) Surgical History History of appendectomy (Chronic) Social History Smoking/Tobacco Use Status: Never Second Hand Exposure: No Alcohol Intake: never Drug use: Never Substance use type: does not use Caregiver/Support person: No Household members: none Housing: house Number of Children: 4 number of grandchildren: 5 Communication Needs: Corrective Lenses Education Level: high school Do you need help understanding health information?: Often current occupation: Retired Pets and animals: Yes Pets and animals: cat(s) and dog(s) Current gender identity: female What is your relationship status?: How often do you talk on the phone with friends or family?: three or more times per week How often do you get together with friends or relatives?: three or more times per week Panel score (0-1 are the most socially isolated patients): 1 What type of physical activity do you participate in: assisted ambulation Duration: < 15 minutes/day Frequency: does not exercise Faviola/Protestant: Presybeterian Special faviola needs: Yes (no transfusion) Agree to transfusion: No Seatbelt use: always Drive intox or ride w/intox fence post driver: No Do you feel safe at home: Yes Do you feel safe in your relationship?: Yes Additional Social history: Lives alone but sons and their spouses check in regularly. Getting some HH services. ALso [facility] to help with ADLs. Hip pain bad lately; has known fracture, which is old--not sure when she broke her hip. Interested in completing COLST--done today Meds Home Medications and Allergies Home Medications Medication Instructions Recorded Confirmed Type ascorbic acid (vitamin C) 2 tab PO DAILY PRN 07/15/12 10/10/19 History multivitamin [Daily Multi-Vitamin] 1 tab PO DAILY 07/15/12 10/10/19 History [place] 600 mg PO DAILY 08/13/14 10/01/19 History chromium picolinate 1,000 mcg PO daily prn 08/13/14 10/10/19 History acetaminophen 500 mg capsule 500 mg PO BID PRN cap 12/13/18 10/10/19 History atorvastatin 40 mg tablet 40 mg PO HS #90 tab-cap 04/17/19 10/10/19 Rx nitroglycerin 0.4 mg sublingual 0.4 mg SUBLINGUAL Q 5 MIN PRN #25 04/17/19 10/10/19 Rx tablet tab-cap pantoprazole 40 mg tablet,delayed 40 mg PO DAILY #90 tab-cap 04/17/19 10/10/19 Rx release pen needle, diabetic 32 gauge x #100 each 04/17/19 10/01/19 Rx spironolactone 50 mg tablet 50 mg PO DAILY #90 tab-cap 04/17/19 10/10/19 Rx amlodipine 5 mg tablet 5 mg PO DAILY #90 tab 04/27/19 10/10/19 Rx furosemide 20 mg tablet 40 mg PO DAILY #180 tab-cap 06/13/19 10/10/19 Rx metoprolol succinate 50 mg 150 mg PO DAILY #90 tab 06/13/19 10/10/19 Rx tablet,extended release 24 hr aspirin 81 mg tablet,delayed 81 mg PO DAILY 06/20/19 10/10/19 History release fentanyl 25 mcg/hr transdermal 1 patch TD Q72H #10 each MDD 25 mcg 09/19/19 10/10/19 Rx patch Tresiba FlexTouch U-100 18 unit SC QHS 10/01/19 10/10/19 History warfarin 2.5 mg PO DIRECTED 10/01/19 10/10/19 History Allergies Allergy/AdvReac Type Severity Reaction Status Date / Time Tetanus Vaccines and Toxoid Allergy Intermediate Verified 10/01/19 13:14 diltiazem AdvReac Severe tired, Verified 10/01/19 13:14 hand pain doxycycline AdvReac Severe GI UPSET Verified 10/01/19 13:14 verapamil AdvReac Severe dizziness Verified 10/01/19 13:14 doxazosin mesylate AdvReac Intermediate muscle Verified 10/01/19 13:14 [From [place]] aches atenolol AdvReac Mild leg pain Verified 10/01/19 13:14 Exam Narrative Exam Narrative: Elderly female sitting up in her chair watching TV. She is alert and oriented person place time circumstance. She is not lethargic she is very attentive and conversant. Lungs are clear to auscultation. Heart is irregularly irregular at a controlled rate. Abdomen soft and nontender. Lower extremities with trace to 1+ edema. Right hip is not indurated nontender to palpation wound is dressed with a sterile dressing. Psych Mental Status: mental status grossly normal Speech and Movement: speech and movement normal Mood: congruent mood Affect: normal affect COVID-19 Screening Have you,or household,traveled outside [place] in last 14 days?: TRAVEL NO
--- NOTE | 2019-10-10 16:22 | CHAPLAIN ---
Linda was sitting in her chair when I visited. She said her hip is feeling better, and she'll be staying here on swing bed, maybe for two weeks. Her son Robert has been in to visit her, and Linda asked if another son could visit as well. I suggested she check with Care Management about the visiting policy for swing bed. Linda told me about her children, all sons, and said they are supportive. One son lives in [place] and fell out of a tree stand a few years ago and is paralyzed, she said.
--- NOTE | 2019-10-10 16:55 | PTTR_ITS ---
Date of service: 10/10/19 Time of Service: 16:55 PT Notes Visit Reasons: SB1 Physical Therapy Inpatient Treatment Note Date: 10/10/2019 Precautions: Fall. Standard. WBAT on R LE. Subjective: Agreeable to a PT session this afternoon. Reports being tired from this morning's walk but was able to recover with short bed rest. Is happy with how much distance she was able to cover this morning. Objective: General Observation: Mepilex Ag over surgical incision. Telemetry monitoring in place. Edema noted to bilateral legs with the right more than the left. IV access in the right UE. New foot drop on the R seen. Mental Status: Alert and oriented x4 Pain: 2/10 in the right hip THERA EX: Seated LAQs x 10, seated hip flexion x 10, seated hip abduction and adduction x 10, ankle DF x 10 (mostly on L as R has no active DF yet), toe extension on R x 10, quads sets x 10, gluteal sets x 10. Assessment: Linda tolerated seated exercises well for this session. Plan of Care/Treatment Plan: 1-2x/day, 7 days/week x 1 week. Plan of care has been reviewed with the MEDICAL REIMBURSEMENT MANAGER providing the service under Physical Therapy direction. Initiate Physical Therapy intervention for strengthening, bed mobility, transfers, gait, stairs, balance training, use of assistive device. DISCHARGE RECOMMENDATIONS: Patient will benefit from custodial facility placement for continued skilled physical therapy services in order to progress mobility level, strength, and balance in preparation for a safe discharge to home. TREATMENT CODE/TIME: 57275 x 25 minutes beginning at 10:16:55 PM.
[2019-10-10] MEDS: Refresh PLUS Eye Drops 0.4ml 1 EACH OU ×2 (17:37→19:36)
[2019-10-10] MEDS: Insulin Aspart 300 UNITS/3 ML PEN SC ×3 (17:38→21:50)
--- NOTE | 2019-10-10 17:57 | NUR.NOTE ---
Nursing Note: Patient is dc from acute status and is admitted as a swing bed to further her rehabilitation
[2019-10-10] MEDS: Apixaban 5 MG TAB PO (19:36)
[2019-10-10] MEDS: Docusate Sodium 100 MG CAP PO (19:36)
[2019-10-10 19:38] VITALS: BP 100/58; PULSE 70; RESP 16; TEMP 36.7; O2SAT 99
[2019-10-10] MEDS: dilTIAZem CD 180 MG CAPCR PO (21:50)
[2019-10-10] MEDS: Insulin Glargine 300 UNITS/3 ML PEN 20 UNITS SC (21:51)
[2019-10-10 23:56] VITALS: BP 112/63; PULSE 91; RESP 18; TEMP 36.7; O2SAT 97
[2019-10-11] MEDS: Refresh PLUS Eye Drops 0.4ml 1 EACH OU ×5 (03:42→20:12)
[2019-10-11 08:11] VITALS: BP 119/60; PULSE 97; RESP 17; TEMP 36.7; O2SAT 98
[2019-10-11] MEDS: Insulin Aspart 300 UNITS/3 ML PEN SC ×5 (08:19→22:36)
[2019-10-11] MEDS: Aspirin E.C. 81 MG TABEC PO (08:20)
[2019-10-11] MEDS: Metoprolol CR 100 MG TABCR PO (08:21)
[2019-10-11] MEDS: Multivitamin TAB 1 TAB PO (08:21)
[2019-10-11] MEDS: Apixaban 5 MG TAB PO ×2 (08:21→20:12)
[2019-10-11] MEDS: Pantoprazole 40 MG TABCR PO (08:21)
[2019-10-11] MEDS: Furosemide 40 MG TAB PO (08:21)
[2019-10-11] MEDS: Docusate Sodium 100 MG CAP PO ×2 (08:21→20:12)
[2019-10-11] MEDS: Normal Saline Flush 10 ML SYR IVP ×3 (08:22→20:12)
[2019-10-11 11:47] VITALS: BP 120/65; PULSE 84; RESP 19; TEMP 36.7; O2SAT 98
--- NOTE | 2019-10-11 13:59 | PT.INTREAT ---
Date of service: 10/11/19 Time of Service: 14:00 PT Notes Visit Reasons: RIGHT HIP REPAIR/SWINGBED Inpatient Physical Therapy Treatment Note [facility] Date: 10/11/2019 SUBJECTIVE: Linda states that she is doing better everyday. She indicated that her heart slows her up more than anything. OBJECTIVE: [] BED MOBILITY/TRANSFERS Sit-stand: CGA Stand-sit: CGA GAIT Assistive Device: FWW Weight bearing: AT Assist: CGA Distance: 30' in am and 30'x2 in pm session. WC to follow her so she can take a seated rest. THEREX: performed a global LE strength and stabilization routine, see flowsheet for details. ASSESSMENT: tolerated sessions well. No c/o pain, but continue to fatigue easy. She is able to stand unsupported for short periods of time with reminders to engage her glutes. PLAN: continue with PT POC, progressing her functional mobility to tolerance. TREATMENT CODE/TIME: 25 min in am and 25 min in pm. [id number], [id number].
[2019-10-11] MEDS: IRON SUCROSE COMPLEX 300 MG in Normal Saline 250 ML 167 MG IVPB (14:08)
[2019-10-11 15:42] VITALS: BP 118/58; PULSE 81; RESP 20; TEMP 36.2; O2SAT 98
[2019-10-11] MEDS: ROSUVASTATIN 20 MG TAB PO (20:12)
[2019-10-11 20:13] VITALS: BP 105/58; PULSE 91; RESP 18; TEMP 36.6; O2SAT 96
[2019-10-11] MEDS: Insulin Glargine 300 UNITS/3 ML PEN 20 UNITS SC (21:50)
[2019-10-11] MEDS: dilTIAZem CD 180 MG CAPCR PO (21:50)
[2019-10-11] MEDS: Lisinopril 5 MG TAB 2.5 MG PO (21:55)
[2019-10-12] MEDS: Refresh PLUS Eye Drops 0.4ml 1 EACH OU ×7 (01:06→23:43)
[2019-10-12 03:58] VITALS: BP 110/65; PULSE 78; RESP 17; TEMP 36.9; O2SAT 95
[2019-10-12 07:35] VITALS: BP 101/58; PULSE 89; RESP 17; TEMP 36; O2SAT 97
[2019-10-12 07:48] LABS: Abs Immature Grans 0.13 k/cumm (0.0-0.09); Absolute Basophil Count 0.03 k/cumm (0.0-0.2); Absolute Eosinophil Count 0.21 k/cumm (0.0-0.7); Absolute Lymphocyte Count 1.52 k/cumm (1.2-3.4); Absolute Monocyte Count 1.14 k/cumm (0.11-0.7); Absolute Neutrophil Count 6.32 k/cumm (1.2-6.7); Basophils % 0.3; Eosinophils % 2.2; HCT 26.5 % (36.0-46.0); HGB 8.6 g/dL (12.0-15.5); Immature Grans % 1.4 %; Lymphocytes % 16.3; Mean Corp. HGB Concentration 32.5 g/dL (32.0-36.0); Mean Corpuscular Hemoglobin 28.4 pg (27.0-33.0); Mean Corpuscular Volume 87.5 fL (80-95); Monocytes % 12.2; Neutrophils % 67.6; Platelet Count 316 x1000/uL (130-400); RBC 3.03 m/cumm (4.00-5.20); RBC Distribution Width 14.2 % (11.7-14.6); Reticulocyte 2.6 % (0.5-2.4); White Blood Cell Count 9.35 k/cumm (4.4-10.8)
[2019-10-12 08:06] LABS: ALT 13 U/L (14-59); AST 18 U/L (15-37); Albumin 2.2 g/dL (3.4-5.0); Alkaline Phosphatase 65 U/L (46-116); Anion Gap 8.8 mmol/L (3-11); BUN 30 mg/dL (7-18); Bilirubin, Total 0.5 mg/dL (0.2-1.0); CO2 27.2 mmol/L (21.0-32.0); CREATININE 1.27 mg/dL (0.55-1.02); Calcium 8.6 mg/dL (8.5-10.1); Chloride 93 mmol/L (98-107); Estimated GFR 40.19 (mL/min/1.73m2); Glucose 99 mg/dL (74-106); NT-proBNP 2272 pg/mL (<300); Potassium 3.9 mmol/L (3.5-5.1); Sodium 129 mmol/L (136-145); Total Protein 6.5 g/dL (6.4-8.2)
[2019-10-12] MEDS: Normal Saline Flush 10 ML SYR IVP ×3 (08:27→14:37)
[2019-10-12] MEDS: Aspirin E.C. 81 MG TABEC PO (08:28)
[2019-10-12] MEDS: Furosemide 40 MG TAB PO (08:28)
[2019-10-12] MEDS: Apixaban 5 MG TAB PO ×2 (08:28→20:49)
[2019-10-12] MEDS: Multivitamin TAB 1 TAB PO (08:29)
[2019-10-12] MEDS: Pantoprazole 40 MG TABCR PO (08:29)
[2019-10-12] MEDS: Docusate Sodium 100 MG CAP PO ×2 (08:29→20:50)
--- NOTE | 2019-10-12 08:33 | OTIE_ITS ---
Occupational Therapy Notes Inpatient Occupational Therapy Evaluation Date: 10/12/19 Referring Doctor:Yong Cruz MD OT Orders: Non Urgent: Limited Ability Precautions: Fall, Standard, Full PATIENT PROFILE/ADMITTING DIAGNOSIS: Patient transitioned to [facility] level 1 of care as of 10/10/2019 for acute congestive heart failure. Pt is s/p (R) total hip arthroplasty. Medical History Medical History Arthritis (Acute) ASCVD (arteriosclerotic cardiovascular disease) (Acute 04/22/15) [place] with out of hosp cardiac arrest LAD stent, LVEF 35% Atrial fibrillation (Acute 05/27/11) paroxysmal Oct 2009 Carpal tunnel syndrome on both sides (Acute) CHF (congestive heart failure) (Chronic) Chronic low back pain (Chronic) Complementary medicine (Chronic) homeopathic primarily DNI (do not intubate) (Acute) DNR (do not resuscitate) (Acute) Essential hypertension (Acute 01/04/13) echo 2007 [facility] uncontrolled BP (neg w/u for pheo) Foot drop, left (Acute) GERD (gastroesophageal reflux disease) (Chronic) Hip pain, right (Chronic) Hyperlipidemia (Acute) Hypertensive retinopathy (Acute) Impaired left ventricular function (Acute ~05/2019) [facility] [place] 35% Low back pain (Acute) Lumbar stenosis (Acute) Mild obstructive sleep apnea (Acute 11/17/15) [facility] NSTEMI (non-ST elevated myocardial infarction) (Acute ~05/2019) [facility] [place] Palliative care patient (Acute) Pedal edema (Acute) POLST (Physician Orders for Life-Sustaining Treatment) (Chronic) done 08/08/19 Refusal of blood transfusions as patient is Hoahaoism (Acute) Renal insufficiency (Chronic) Type II diabetes mellitus with complication, uncontrolled (Acute 05/14/14) Social History/Home Situation: Pt states that she lives alone in a private home. She has a ramp to enter her home. She has (A) with grocery shopping, meals, food prep, laundry and trade sales assistant. She has a woman come into her home 2 days per week and her sister comes as needed. She states that she was (I) with dressing and bathing. She has lived a pretty sedentary lifestyle prior to admission due to pain. Pt utilizes a 4WW for functional mobility. Equipment owned/DME: 4WW, shower bench, grab bars SUBJECTIVE: Pt was sitting in chair when OT arrived. She was agreeable to OT session and reports that she is ready to get up and get going. OBJECTIVE: General Observation: pleasant, IV (L) UE, able to answer questions appropriately Mental Status: A&Ox3 Pain: no c/o pain during OT session ROM: RUE AROM WFL L UE AROM WFL STRENGTH: RUE 4/5 throughout globally LUE 4/5 throughout globally FUNCTIONAL MOBILITY/ADLS: Transfers with FWW Sit-Stand- CGA, FWW [id number], FWW Chair-Bathroom- CGA, FWW min vc BATHING- Sitting in bathroom (I) with washing face, (B) UE and abdomen. He (B) LE she requires min vc for balance. She was unable to stand at sink for more than 2 minutes before having to rest. DRESSING In seated position Dressing UE- (I) don and doffing hospital gown Dressing LE - (I) don and doffing (B) socks GROOMING- NT TOILETING- Sitting on toilet with CGA and min vc for getting on and off EATING NT BALANCE: Static sitting- Normal Dynamic Sitting - Normal Static Standing- Good Dynamic Standing - Fair- Good SPECIAL TESTS: Daily Activity Limitations [facility]? Daily Activity Inpatient Short Form: Raw score: 20 Standardized score: 42.03 CMS score: 38.32% INFORMED CONSENT/EDUCATION: Pt instructed in purpose of OT Consult and plan of care. ASSESSMENT: Patient is a 84-year-old female referred to occupational therapy services with diagnosis of SWB 1 rehabilitation status s/p ? total hip arthroplasty and acute congestive heart failure. Patient presents with clinical signs and symptoms consistent with dx, as demonstrated by the following impairment level findings/ functional limitations: Decreased standing tolerance, decreased functional mobility which is required for ADL/IADL routines. Pt is able to demonstrate her ADLs but is not at an (I) level of function at this time. She requires vc and (A) and will require (A) if she does return home when medically cleared per MD. AMPAC score 20 Patient is assessed as a Moderate 02364 complexity based on the following: History: See above Examination: see functional limitations as noted above Presentation: Evolving Decision Making: AMPAC score 20 GOALS Goals x1 week 1. Transfers- with FWW 2. Dressing- (I) in seated position 3. Bathing- (I) in seated position 4. Toileting- on toilet (I) 5. Eating- (I) 6. Pt will be able to brush her teeth and hair (I) standing at sink. PLAN OF CARE/TREATMENT PLAN: 1x/day, 5 days/ week x 1week Initiate Occupational Therapy Services for bathing, dressing, grooming, toileting, eating, transfer training. DISCHARGE RECOMMENDATIONS- Based on pts functional (I) in her ADL/IADL routines OT feels that pt would benefit from short term stay at SNF vs. home with increased HH services including PT/OT/Nursing. If pt does return home she will require increased (A) to promote functional (I) in her ADL/IADL routines. TREATMENT TIME/MINUTES/CODES- 65841, 57057, 25 minutes (07:20) Katie Yung OTR/L [facility]
[2019-10-12] MEDS: Insulin Aspart 300 UNITS/3 ML PEN SC ×6 (09:01→21:56)
--- NOTE | 2019-10-12 11:44 | POCOE_ITS ---
Date of service: 10/12/19 Time of Service: 11:44 History of Present Illness History of Present Illness Chief Complaint: Painful toenails Narrative: 84-year-old female seen in her room, she is on swing bed status, status post right anterior hip replacement with right lower extremity DVT currently admitted for rehabilitation. She is seen complaining of painful thickened overgrown and ingrowing toenails which are causing discomfort. She is a long-term patient of mine I am familiar with her and we have been managing this problem for her over the past several years. [facility]LY [facility] Medical History Acute on chronic systolic heart failure (Resolved) Arthritis (Acute) ASCVD (arteriosclerotic cardiovascular disease) (Acute 04/22/15) [place] with out of hosp cardiac arrest LAD stent, LVEF 35% Atrial fibrillation (Acute 05/27/11) paroxysmal Oct 2009 Carpal tunnel syndrome on both sides (Acute) CHF (congestive heart failure) (Chronic) Chronic HFrEF (heart failure with reduced ejection fraction) (Acute) Chronic low back pain (Chronic) Complementary medicine (Chronic) homeopathic primarily: DNI (do not intubate) (Acute) DNR (do not resuscitate) (Acute) Essential hypertension (Acute 01/04/13) echo 2007 LVH uncontrolled BP (neg w/u for pheo) Foot drop, left (Acute) GERD (gastroesophageal reflux disease) (Chronic) Hyperlipidemia (Acute) Hypertensive retinopathy (Acute) Hyponatremia (Chronic) Impaired left ventricular function (Acute ~05/2019) [facility] [place]; 35% Low back pain (Acute) Lumbar stenosis (Acute) Mild obstructive sleep apnea (Acute 11/17/15) [facility] NSTEMI (non-ST elevated myocardial infarction) (Resolved ~05/2019) [facility] [place] Palliative care patient (Acute) Pedal edema (Resolved) POLST (Physician Orders for Life-Sustaining Treatment) (Chronic) 3 on file Refusal of blood transfusions as patient is Jew (Acute) Renal insufficiency (Chronic) Type II diabetes mellitus with complication, uncontrolled (Acute 05/14/14) Surgical History History of appendectomy (Chronic) Family History Brother Cancer Brother Cancer Leukemia Mother Asthma Sister Cancer Brother Dementia lives in SNF Son No problems noted. Son Paraplegic spinal paralysis motor vehicle crash Son No problems noted. Son No problems noted. Social History Smoking/Tobacco Use Status: Never Second Hand Exposure: No Alcohol Intake: never Drug use: Never Substance use type: does not use Caregiver/Support person: No Household members: none Housing: house Number of Children: 4 number of grandchildren: 5 Communication Needs: Corrective Lenses Education Level: high school Do you need help understanding health information?: Often current occupation: Retired Pets and animals: Yes Pets and animals: cat(s) and dog(s) Current gender identity: female What is your relationship status?: How often do you talk on the phone with friends or family?: three or more times per week How often do you get together with friends or relatives?: three or more times per week Panel score (0-1 are the most socially isolated patients): 1 What type of physical activity do you participate in: assisted ambulation Duration: < 15 minutes/day Frequency: does not exercise Faviola/Lutheran: Jew Special faviola needs: Yes (no transfusion) Agree to transfusion: No Seatbelt use: always Drive intox or ride w/intox chair car driver: No Do you feel safe at home: Yes Do you feel safe in your relationship?: Yes Additional Social history: Lives alone but sons and their spouses check in regularly. Getting some HH services. ALso hires [facility] to help with ADLs. Hip pain bad lately; has known fracture, which is old--not sure when she broke her hip. Interested in completing COLST--done today Exam Narrative Exam Narrative: Linda is seen resting comfortably in her room. She is pleasant, she recognizes me immediately. Peripheral pulses are palpable at the ankle albeit diminished. Feet are warm to the touch. Trace peripheral edema noted which is baseline for her. Calves are soft at this time and currently nontender. Capillary fill is under 3 seconds to all toes. Dermatologic exam: Skin on the plantar aspects of both feet are dry and flaky co nsistent with a low-grade chronic tinea. Webspace involvement is sparse there is no secondary signs of infection. The skin over the dorsum of both feet appears healthy with good turgor. Toenails are chronically fungal being heavy, yellowed, thick, dystrophic, hypertrophic, elongated and in need of debridement. The left hallux nail is highly crypt ptotic. Low-grade indurations noted along the nail fold but no drainage is appreciated. All toenails have moderate subungual debris with periungual tenderness. Distal lysis of the great nails noted bilaterally. Groups of 5 out of 5 bilaterally although deconditioned Skeletal exam is currently benign. Impressions: Onychomycosis chronic Onychocryptosis left hallux Onychogryphosis Tinea pedis Xerosis Plan: Mechanically and electrically debrided all nails aggressively and atraumatically to patient tolerance. Gently curettaged all debris free of the nail grooves. Marked relief of sensitivity noted upon debridement. Modified slant back avulsion performed to the medial lateral borders of the left hallux nail. The toenail was resected proximally sufficiently to achieve relief of symptoms atraumatically. Recommend topical ketoconazole for tinea. She un derstands that the athlete's foot is directly related to the onychomycosis and that frequent recurrent outbreaks of tinea will develop due to the continual shedding of spores from the nail plates. All questions were answered in detail. I will be happy to continue to follow her up upon discharge at the office in her usual fashion.. Results Last Vital Signs Temp 36.0 C L 10/12/19 07:35 Pulse 89 10/12/19 07:35 Resp 17 10/12/19 07:35 BP 101/58 L 10/12/19 07:35 Pulse Ox 97 10/12/19 07:35 Labs Result diagrams: 10/12/19 07:26 10/12/19 07:26 Labs: Laboratory Results - last 24 hr 10/12/19 10/12/19 07:26 07:26 WBC 9.35 RBC 3.03 L Hgb 8.6 L Hct 26.5 L MCV 87.5 MCH 28.4 MCHC 32.5 RDW 14.2 Plt Count 316 MPV 11.0 Immature Gran % 1.4 Neutrophils % 67.6 Lymphocytes % 16.3 Monocytes % 12.2 Eosinophils % 2.2 Basophils % 0.3 Absolute Neutrophils 6.32 Absolute Lymphocytes 1.52 Absolute Monocytes 1.14 H Absolute Eosinophils 0.21 Absolute Basophils 0.03 Retic Count 2.6 H Sodium 129 L Potassium 3.9 Chloride 93 L Carbon Dioxide 27.2 Anion Gap 8.8 BUN 30 H Creatinine 1.27 H Estimated GFR/1.73 m2 40.19 Glucose 99 Calcium 8.6 Total Bilirubin 0.5 AST 18 ALT 13 L Alkaline Phosphatase 65 NT-Pro-B Natriuret Pep 2272 H Total Protein 6.5 Albumin 2.2 L
[2019-10-12] MEDS: IRON SUCROSE COMPLEX 300 MG in Normal Saline 250 ML 167 MG IVPB (14:28)
--- NOTE | 2019-10-12 15:23 | PT.INTREAT ---
Date of service: 10/12/19 Time of Service: 15:24 PT Notes Visit Reasons: RIGHT HIP REPAIR/SWINGBED Inpatient Physical Therapy Treatment Note [facility] Date: 10/12/2019 SUBJECTIVE: Linda c/o feeling tired and cold this am. OBJECTIVE: [] BED MOBILITY/TRANSFERS Sit-stand: SBA Stand-sit:SBA GAIT Assistive Device: 4WW Weight bearing: WBAT right Assist: CGA Distance: 150' required 1 sitting rest break 1/[address] x 1 min. THEREX: global LE strength and stabilization, see flowsheet fro details. ASSESSMENT: tolerated session well. Received iron supplement via IV this pm and declined ambulation. Reminders to slow pace down and proper breathing techniques for energy conservation. PLAN: continue progressing following PT POC. TREATMENT CODE/TIME: 25 min in am and 20 min in pm. [id number], [id number]
[2019-10-12 15:25] VITALS: BP 105/54; PULSE 94; RESP 18; TEMP 36.9; O2SAT 96
[2019-10-12] MEDS: ROSUVASTATIN 20 MG TAB PO (20:49)
[2019-10-12] MEDS: Ketoconazole 2% CREAM 15 GM TUBE TP (20:50)
[2019-10-12] MEDS: Lisinopril 5 MG TAB 2.5 MG PO (21:55)
[2019-10-12] MEDS: dilTIAZem CD 180 MG CAPCR PO (21:55)
[2019-10-12] MEDS: Insulin Glargine 300 UNITS/3 ML PEN 20 UNITS SC (21:56)
[2019-10-12 21:58] VITALS: BP 120/65; PULSE 113; RESP 18; TEMP 36.7; O2SAT 95
[2019-10-13] MEDS: Refresh PLUS Eye Drops 0.4ml 1 EACH OU ×4 (04:12→21:33)
[2019-10-13 04:17] VITALS: BP 101/63; PULSE 91; RESP 18; TEMP 36.9; O2SAT 98
[2019-10-13] MEDS: Docusate Sodium 100 MG CAP PO ×2 (07:55→19:24)
[2019-10-13] MEDS: Multivitamin TAB 1 TAB PO (07:55)
[2019-10-13] MEDS: Furosemide 40 MG TAB PO (07:55)
[2019-10-13] MEDS: Pantoprazole 40 MG TABCR PO (07:56)
[2019-10-13] MEDS: Metoprolol CR 100 MG TABCR PO (07:56)
[2019-10-13] MEDS: fentaNYL 12 MCG PATCH TD (07:56)
[2019-10-13] MEDS: Apixaban 5 MG TAB PO ×2 (07:56→19:24)
[2019-10-13] MEDS: Acetaminophen 325 MG TAB PO (07:56)
[2019-10-13] MEDS: Aspirin E.C. 81 MG TABEC PO (07:56)
--- NOTE | 2019-10-13 10:31 | PT.INTREAT ---
Date of service: 10/13/19 Time of Service: 10:31 PT Notes Visit Reasons: RIGHT HIP REPAIR/SWINGBED Inpatient Physical Therapy Treatment Note [facility] Date: 10/13/2019 PRECAUTIONS: Fall, WBAT R SUBJECTIVE: Marika reports that she is feeling much better and stronger these past few days. She reports that she wants to go home soon. OBJECTIVE: Patient appeared SOB with gait training. PAIN: No complaints of pain BED MOBILITY/TRANSFERS Sit-stand: SBA Stand-sit: SBA GAIT Assistive Device: 4WW Weight bearing: WBAT R Assist: CGA Distance: 150' Deviation: Seated rest x2, cueing for safety with 4WW mechanics THEREX: Patient completed several lower extremity strengthening exercises, in a seated position, as per flow sheet. ASSESSMENT: Patient tolerated session without complaint of pain. She requires cueing for safe use of 4WW, and instruction for proper 4WW mechanics. She would benefit from continued global strengthening as well as gait training for improvement and progression towards independence with mobility. PLAN: Continue with PTs POC TREATMENT CODE/TIME: 25 minutes; [id number], [id number]
[2019-10-13] MEDS: Insulin Aspart 300 UNITS/3 ML PEN SC ×3 (12:06→18:23)
[2019-10-13 13:47] VITALS: BP 101/52
[2019-10-13 15:20] VITALS: BP 102/66; PULSE 78; RESP 18; TEMP 35.9; O2SAT 98
[2019-10-13] MEDS: ROSUVASTATIN 20 MG TAB PO (19:24)
[2019-10-13] MEDS: Ketoconazole 2% CREAM 15 GM TUBE TP (19:24)
[2019-10-13 19:30] VITALS: BP 102/61; PULSE 108; RESP 18; TEMP 36.6; O2SAT 97
[2019-10-13] MEDS: Lisinopril 5 MG TAB 2.5 MG PO (21:33)
[2019-10-13] MEDS: dilTIAZem CD 180 MG CAPCR PO (21:33)
[2019-10-13] MEDS: Insulin Glargine 300 UNITS/3 ML PEN 20 UNITS SC (21:34)
[2019-10-13 23:50] VITALS: BP 105/60; PULSE 103; RESP 16; TEMP 36.3; O2SAT 97
[2019-10-14] MEDS: Pantoprazole 40 MG TABCR PO (07:22)
[2019-10-14 07:30] VITALS: BP 112/72; PULSE 88; RESP 18; TEMP 36.6; O2SAT 95
[2019-10-14] MEDS: Aspirin E.C. 81 MG TABEC PO (08:19)
[2019-10-14] MEDS: Metoprolol CR 100 MG TABCR PO (08:21)
[2019-10-14] MEDS: Docusate Sodium 100 MG CAP PO (08:21)
[2019-10-14] MEDS: Multivitamin TAB 1 TAB PO (08:21)
[2019-10-14] MEDS: Furosemide 40 MG TAB PO (08:22)
[2019-10-14] MEDS: Apixaban 5 MG TAB PO (08:22)
[2019-10-14] MEDS: Insulin Aspart 300 UNITS/3 ML PEN SC ×3 (08:23→12:07)
[2019-10-14 09:05] LABS: Abs Immature Grans 0.06 k/cumm (0.0-0.09); Absolute Basophil Count 0.04 k/cumm (0.0-0.2); Absolute Eosinophil Count 0.18 k/cumm (0.0-0.7); Absolute Lymphocyte Count 1.56 k/cumm (1.2-3.4); Absolute Monocyte Count 0.95 k/cumm (0.11-0.7); Absolute Neutrophil Count 6.43 k/cumm (1.2-6.7); Basophils % 0.4; HCT 27.6 % (36.0-46.0); HGB 9.1 g/dL (12.0-15.5); Immature Grans % 0.7 %; Lymphocytes % 16.9; Mean Corpuscular Hemoglobin 29.1 pg (27.0-33.0); Mean Corpuscular Volume 88.2 fL (80-95); Mean Platelet Volume 10.2 fL (8.0-11.0); Monocytes % 10.3; Neutrophils % 69.7; Platelet Count 382 x1000/uL (130-400); RBC 3.13 m/cumm (4.00-5.20); RBC Distribution Width 14.6 % (11.7-14.6); White Blood Cell Count 9.22 k/cumm (4.4-10.8)
[2019-10-14 09:14] LABS: Anion Gap 10.1 mmol/L (3-11); BUN 25 mg/dL (7-18); CO2 25.9 mmol/L (21.0-32.0); CREATININE 1.19 mg/dL (0.55-1.02); Calcium 8.7 mg/dL (8.5-10.1); Chloride 102 mmol/L (98-107); Estimated GFR 43.32 (mL/min/1.73m2); Glucose 79 mg/dL (74-106); Magnesium 1.7 mg/dL (1.8-2.4); Potassium 3.6 mmol/L (3.5-5.1); Sodium 138 mmol/L (136-145)
[2019-10-14] MEDS: Magnesium Oxide 400 MG TAB PO (10:36)
--- NOTE | 2019-10-14 10:38 | PT.INTREAT ---
Date of service: 10/14/19 Time of Service: 10:38 PT Notes Visit Reasons: RIGHT HIP REPAIR/SWINGBED Inpatient Physical Therapy Treatment Note [facility] Date: 10/14/2019 PRECAUTIONS: Fall, WBAT R SUBJECTIVE: Linda reports that she is feels that she could go home safely, at any point. She reports that she really wants to go as soon as possible. OBJECTIVE: PAIN: No complaints of pain BED MOBILITY/TRANSFERS Supine-sit: I with HOB flat Sit-supine: I with HOB flat Sit-stand: S Stand-sit: S Bed-chair: S Chair-bed: S GAIT Assistive Device: 4WW Weight bearing: WBAT R Assist: SBA Distance: 150' Deviation: No seated rest, improved 4WW mechanics THEREX: Patient completed several lower extremity strengthening exercises, in a supine position, as per flow sheet. ASSESSMENT: Patient tolerated session without complaint of pain. She demonstrates improved safety with use of 4WW. She would benefit from continued global strengthening as well as gait training for improvement and progression towards independence with mobility. PLAN: Continue with PTs POC TREATMENT CODE/TIME: 20 minutes; [id number]
--- NOTE | 2019-10-14 12:16 | W.PM.DS.N ---
Date of service: 10/14/19 Time of Service: 12:16 DS: Diagnosis Discharge Diagnosis (1) Fracture of head of right femur: Status: Chronic (2) Ambulatory dysfunction: Status: Acute (3) Atrial fibrillation: Status: Chronic (4) Essential hypertension: Status: Acute (5) Hyponatremia: Status: Chronic (6) Iron deficiency anemia: Status: Chronic (7) Chronic HFrEF (heart failure with reduced ejection fraction): Status: Chronic Asessment and Plan: EF 45-50% (8) Acute deep vein thrombosis (DVT) of right lower extremity: Status: Acute Asessment and Plan: Present on admission, R posterior tibial vein (9) Type II diabetes mellitus with complication, uncontrolled: Status: Chronic (10) Hyperlipidemia: Status: Chronic (11) COVID-19 ruled out by clinical criteria: Status: Ruled-out Discharge Plan Disposition Patient Disposition: HOME W/HOME HEALTH SERVICE Condition: Good Discharge Details Reason For Visit: RIGHT HIP REPAIR/SWINGBED Admit Date/Time: 10/10/19 15:59 Admit Provider: Yong Cruz Attending Provider: Yong Cruz Primary Care Provider: Rad Yeh Hospital Course Hospital Course: Ms Bautista is an 84 year old female with PMHx of paroxysmal Afib, previously on coumadin, as well as h/o chronic right femoral head fracture, h/o CAD s/p NSTEMI, chronic mild systolic CHF with EF of 45%, pulmonary hypertension, and chronic hyponatremia, who was a patient under Swing Bed level 1 status at [facility] from 10/10/2019 until 10/14/2019 for physical therapy following her R total hip replacement by Dr Stovall on 10/04/2019. Her hospitalization prior to being admitted to swing bed included management of rapid Afib and acute on chronic systolic CHF as well as hyponatremia in addition to her orthopedic issue and a new diagnosis of a distal RLE DVT. She also had an E. Coli UTI, for which she completed therapy. For more details of her hospital course prior to her swing bed stay, please, see Dr Cruz's discharge summary from 10/10/2019. Her anticoagulation has been changed to apixaban 5 mg PO BID, and her Afib is being managed with diltiazem CD 180 mg PO Q HS and metoprolol XL 100 mg PO Daily. She is also on lasix 40 mg PO daily. Her sodium on discharge is 138. She will need to follow daily weights, will have to have bloodwork in 1 week with results going to PCP (CBC, BMP, magnesium). She is on a fluid restriction of 1500 cc of water/day. She progressed very well with PT and is requiring a four wheel walker, which she has at home. She is medically stable for discharge home today with home health nursing, PT, and OT. Care for patient as well as completion of her discharge summary on day of discharge took 45 minutes. Home Meds and New Rx's Prescriptions: New diltiazem HCl 180 mg Capsule,Extended Release 24hr 180 mg PO HS Qty: 30 RF: 0 docusate sodium [Colace] 100 mg Capsule 100 mg PO BID Qty: 60 RF: 0 lisinopril 5 mg Tablet 2.5 mg PO HS Qty: 15 RF: 0 fentanyl 12 mcg/hr Patch 72 Hour 12 mcg transdermal Q72H Qty: 3 RF: 0 magnesium oxide 400 mg (241.3 mg magnesium) Tablet 400 mg PO DAILY Qty: 10 RF: 0 sennosides [Senokot] 8.6 mg Tablet 1 tab PO BID PRN PRNQty: 60 RF: 0 bisacodyl 10 mg Suppository 10 mg GA DAILY PRN PRNQty: 10 RF: 0 ketoconazole 2 % Cream 1 applic topical QPM Qty: 30 RF: 1 rosuvastatin [Crestor] 20 mg Tablet 20 mg PO QPM Qty: 30 RF: 0 Eliquis 5 mg Tablet 5 mg PO BID Qty: 60 RF: 0 Continued acetaminophen 500 mg capsule 500 mg PO BID PRN (Reason: pain) RF: 0 nitroglycerin 0.4 mg tablet, sublingual 0.4 mg Sublingual Q 5 MIN PRN Qty: 25 RF: 4 pantoprazole 40 mg tablet,delayed release (DR/EC) 40 mg PO DAILY Qty: 90 RF: 4 (DME) pen needle, diabetic [BD Ultra-Fine Juliann Pen Needle] 32 gauge x 5/32 needle See Dose Instructions .ROUTE .MEDSUPPLY Qty: 100 RF: 3 multivitamin [Daily Multi-Vitamin] 1 EACH tablet 1 tab PO DAILY RF: 0 ascorbic acid (vitamin C) 500 MG tablet 2 tab PO DAILY PRN RF: 0 Hold Instructions: Patient reports getting her vitamin C from multivitamin. chromium picolinate 1,000 MCG tablet 1,000 mcg PO daily prn RF: 0 Hold Instructions: Patient reports not taking for a while. furosemide 20 mg tablet 40 mg PO DAILY Qty: 180 RF: 3 aspirin [Adult Low Dose Aspirin] 81 mg tablet,delayed release (DR/EC) 81 mg PO DAILY RF: 0 Tresiba FlexTouch U-100 100 unit/mL (3 mL) insulin pen 18 unit SC QHS RF: 0 Changed metoprolol succinate 50 mg tablet extended release 24 hr 100 mg PO DAILY Qty: 60 RF: 11 Discontinued atorvastatin 40 mg tablet 40 mg PO HS Qty: 90 RF: 4 spironolactone 50 mg tablet 50 mg PO DAILY Qty: 90 RF: 3 amlodipine 5 mg tablet 5 mg PO DAILY Qty: 90 RF: 3 omega 600 mg PO DAILY RF: 0 Hold Instructions: Patient not taken in a while. fentanyl 25 mcg/hr patch 72 hour 1 patch TD Q72H MDD 25 mcg Qty: 10 RF: 0 warfarin 5 mg tablet 2.5 mg PO DIRECTED RF: 0 Discharge Instructions Instructions: Diltiazem (By mouth), Apixaban (By mouth), Heart Failure (DC), A-fib (Atrial Fibrillation) (DC) Additional Instructions: Return to the hospital with any fever, bleeding, chest pain, shortness of breath. Follow up with your PCP in 1-2 weeks. Follow up with [address] Stovall in [address] Stovall's Total Hip Discharge Instructions Activity: The most important activity is to walk and and increasing independence with daily activities. You should try to take short walks a few times a day. You have no restrictions on movement or positioning, but do not try to force what you do. You will find some stiffness and weakness with hip flexion (lifting your knee). Do not try to strengthen this too early, continue to practice walking and stairs and this will come. Physical therapy should focus on general amatory capacity as well as strengthening hip flexion and hip abduction. Additionally, focus should be given to foot and ankle range of motion and strength. I would not recommend any brace to the foot and ankle at this time unless she shows no improvement and it seems to be interfering with her ambulatory capabilities. She should use a walker at all times. - You should wear the GRAYSON hose on both legs for 2 weeks. You may remove those at night. These prevent blood pooling and swelling. Dressing: Keep the surgical dressing in place for at least one week, although it may stay in place untill follow-up. It may get wet after 3 days but avoid soaking the dressing. If it gets wet, just lightly pat dry. Most people prefer to cover the dressing with some ClingWrap, Saran Wrap, to keep it dry. After the first week it may be removed if desired and then replaced with light gauze and tape or nothing. It is important to always keep some gauze or the dressing between skin folds, especially when you are sitting, so the incision is not folded over on itself at the belly fold. If you have any acute concerns or questions, please do not hesitate to contact the office at [phone]. You may contact Dr. Stovall with any questions after hours through the hospital at [phone] or on his cell phone at [phone]. Care Plan Goals: Home with Home Health Nursing, PT, OT, resumption of palliative care. Stand Alone Forms: Nursing Discharge Form Referrals: Ayaan Stovall MD [ [facility] STAFF PHYSICIAN] - (Call the office on Tuesday morning to schedule an appointment for 3 weeks) Anne-Marie Hernandez MD [ [facility] STAFF PHYSICIAN] - (resumption of palliative care) Rad Yeh [Primary Care Provider] - (Call the office on Tuesday to schedule an appointment to be seen within 2 weeks) Activity:: Activity as Tolerated Equipment/Supplies:: Walker Diet:: Diabetic low sodium Discharge Orders Discharge Orders: Discharge Order (Routine); Ordered 10/14/19 Ordered By: Cristin Finley DS: Summary Status at Discharge Functional status at discharge: uses cane/walker Overall status at discharge: patient is progressing back to baseline Mental Status: mental status grossly normal Speech and Movement: speech and movement normal Mood: congruent mood Affect: normal affect Exam Narrative Exam Narrative: General: Very pleasant elderly female, sitting up in a chair, comfortable, A&Ox3 HEENT: EOMI, MMM Heart: RRR, no m/r/g Lungs: CTAB Abdomen: soft, nontender, nondistended Extremities: R hip wound dressed - c/d/i, 1+ LLE edema, RLE is slightly more edematous. Psych Mental Status: mental status grossly normal Speech and Movement: speech and movement normal Mood: congruent mood Affect: normal affect DS: Data Vitals/I&O Vitals and I&O: Vital Signs Temperature 36.6 C 10/14/19 07:30 Temperature Source Tympanic 10/14/19 07:30 Pulse 88 10/14/19 07:30 Pulse Rhythm Irregular 10/14/19 10:39 Respiratory Rate 18 10/14/19 07:30 Respiratory Effort 10/14/19 10:39 Respiratory Depth Normal 10/14/19 10:39 Respiratory Pattern Normal 10/14/19 10:39 Blood Pressure 112/72 10/14/19 07:30 Pulse Oximetry 95 10/14/19 07:30 Oxygen Delivery Method Room Air 10/14/19 07:30 Oxygen Flow Rate 0 10/14/19 07:30 Pain Level 0 10/14/19 07:30 Intake & Output 10/13/19 10/14/19 10/14/19 23:59 11:59 23:59 Intake Total 840 / 1290 Balance 840 / 590 Weight 70.4 kg Intake: Oral 840 / 1280 Other: Urine Appearance Clear Urine Odor Normal Comment Missed hat. Not measured at this time. voided in toilet x 1 Stool Size Moderate Stool Characteristics Soft Voiding Methods Toilet Toilet Data Completed and Pending Labs on day of discharge: Labs from last 24 hours 10/14/19 10/14/19 08:45 08:45 WBC 9.22 RBC 3.13 L Hgb 9.1 L Hct 27.6 L MCV 88.2 MCH 29.1 MCHC 33.0 RDW 14.6 Plt Count 382 MPV 10.2 Immature Gran % 0.7 Neutrophils % 69.7 Lymphocytes % 16.9 Monocytes % 10.3 Eosinophils % 2.0 Basophils % 0.4 Absolute Neutrophils 6.43 Absolute Lymphocytes 1.56 Absolute Monocytes 0.95 H Absolute Eosinophils 0.18 Absolute Basophils 0.04 Sodium 138 Potassium 3.6 Chloride 102 Carbon Dioxide 25.9 Anion Gap 10.1 BUN 25 H Creatinine 1.19 H Estimated GFR/1.73 m2 43.32 Glucose 79 Calcium 8.7 Magnesium 1.7 L [facility] Medical History (Updated 10/14/19 @ 12:46 by Cristin Finley MD) Acute on chronic systolic heart failure (Resolved) Arthritis (Acute) ASCVD (arteriosclerotic cardiovascular disease) (Acute 04/22/15) [place] with out of hosp cardiac arrest LAD stent, LVEF 35% Atrial fibrillation (Chronic 05/27/11) paroxysmal Oct 2009 Carpal tunnel syndrome on both sides (Acute) CHF (congestive heart failure) (Chronic) 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) Chronic low back pain (Chronic) Complementary medicine (Chronic) homeopathic primarily: DNI (do not intubate) (Acute) DNR (do not resuscitate) (Acute) Essential hypertension (Acute 01/04/13) echo 2007 [facility] uncontrolled BP (neg w/u for pheo) Foot drop, left (Acute) GERD (gastroesophageal reflux disease) (Chronic) Hyperlipidemia (Chronic) Hypertensive retinopathy (Acute) Hyponatremia (Chronic) Impaired left ventricular function (Acute ~05/2019) [facility] [place]; 35% Low back pain (Acute) Lumbar stenosis (Acute) Mild obstructive sleep apnea (Acute 11/17/15) [facility] NSTEMI (non-ST elevated myocardial infarction) (Resolved ~05/2019) [facility] [place] Pall[place] care patient (Acute) Pedal edema (Resolved) POLST (Physician Orders for Life-Sustaining Treatment) (Chronic) 3 on file Refusal of blood transfusions as patient is Zoroastrian (Acute) Renal insufficiency (Chronic) Type II diabetes mellitus with complication, uncontrolled (Chronic 05/14/14) Surgical History History of appendectomy (Chronic) Family History Brother Cancer Brother Cancer Leukemia Mother Asthma Sister Cancer Brother Dementia lives in SNF Son No problems noted. Son Paraplegic spinal paralysis motor vehicle crash Son No problems noted. Son No problems noted. Social History Smoking/Tobacco Use Status: Never Second Hand Exposure: No Alcohol Intake: never Drug use: Never Substance use type: does not use Caregiver/Support person: No Household members: none Housing: house Number of Children: 4 number of grandchildren: 5 Communication Needs: Corrective Lenses Education Level: high school Do you need help understanding health information?: Often current occupation: Retired Pets and animals: Yes Pets and animals: cat(s) and dog(s) Current gender identity: female What is your relationship status?: How often do you talk on the phone with friends or family?: three or more times per week How often do you get together with friends or relatives?: three or more times per week Panel score (0-1 are the most socially isolated patients): 1 What type of physical activity do you participate in: assisted ambulation Duration: < 15 minutes/day Frequency: does not exercise Faviola/Advent: Zoroastrian Special faviola needs: Yes (no transfusion) Agree to transfusion: No Seatbelt use: always Drive intox or ride w/intox backhaul driver: No Do you feel safe at home: Yes Do you feel safe in your relationship?: Yes Additional Social history: Lives alone but sons and their spouses check in regularly. Getting some HH services. [facility]so hires [facility] to help with ADLs. Hip pain bad lately; has known fracture, which is old--not sure when she broke her hip. Interested in completing COLST--done today
--- NOTE | 2019-10-14 13:27 | PDOC.HHF2F ---
Home Health Certification Home Health Certification: 1. Encounter Date and Reason I certify that ADAM BAILON was seen by Cristin Finley on 10/14/19 and that I had a [id number] encounter with this patient that meets the physician face to face encounter requirements. 2. Clinical Findings Supporting Skilled Need and Homebound Status I certify that home health services are medically necessary, include either intermittent detention and/or physical/speech therapy, and that this patient is homebound in that absences from the home require considerable and taxing effort and are infrequent or of short duration, or are attributable to the need to receive medical care. [X] (a) Attached documentation from encounter provides clinical findings supporting skilled need and homebound status (including what assistance patient requires to leave the home). The encounter with the patient was in whole, or in part, for the following medical condition, which is the primary reason for home health care: RIGHT HIP REPAIR/SWINGBED Intermediate: Afib, CHF, recent R total hip replacement, distal RLE DVT, assess/perform medication teaching, vital sign monitoring, daily weight monitoring. Consider [facility]. Bloodwork in 1 week (CBC, BMP, magnesium) - results to Dr Yeh. Physical Therapy: eval and treat (s/p R total hip arthroplasty) Occupational Therapy: eval and treat (s/p R total hip arthroplasty) Homebound: unable to leave home without assistance 3. Certification and Authentication I certify that I composed the above information based on my clinical judgement relating to this patient's medical condition and, if applicable, clinical findings communicated to me by the NPP or inpatient physician who performed the Home Health Referral. All further orders will be obtained through ___Dr Yeh (Community Based Physician - PCP)
--- NOTE | 2019-10-14 18:39 | PDOC.CMDIS ---
- If Service Date Differs Date of service: 10/14/19 Time of Service: 18:39 LACE Index Scoring Tool - Questions: Length of Stay (in days): 7 - 13 Acuity (Admit via E.D.?): Yes Comorbidities: Previous M.I., Diabetes w/o Complication, Congestive Heart Failure E.D. Visits: 3 - Answers: Total Score: 16 Risk of Readmission: High Risk Care Management Discharge Reason for Hospitalization: Fractured femur Discharge Plan: Linda will be discharged home with new home health services for RN, OT, PT. She will transport with her son and follow up with her community providers. Patient/Family Education Needs: Discharge plan, follow up, limitations, Ask Me Three Services Needed at Discharge: Home Health Care Services
--- NOTE | 2019-10-15 07:42 | OTDS_ITS ---
Date of service: 10/15/19 Time of Service: 07:42 Occupational Therapy Notes Occupational Therapy Inpatient Discharge Summary Date: 10/15/19 Dates of Service: 10/12/19 for OT consult only. Referring Doctor:Yong Cruz MD OT Orders: Non Urgent: Limited Ability Precautions: Fall, Standard, Full This document serves as a summary of care, no skilled OT services provided for this documentation PATIENT PROFILE/ADMITTING DIAGNOSIS: Patient transitioned to [facility] level 1 of care as of 10/10/2019 for acute congestive heart failure. Pt is s/p (R) total hip arthroplasty. Medical History Medical History Arthritis (Acute) ASCVD (arteriosclerotic cardiovascular disease) (Acute 04/22/15) [place] with out of hosp cardiac arrest LAD stent, LVEF 35% Atrial fibrillation (Acute 05/27/11) paroxysmal Oct 2009 Carpal tunnel syndrome on both sides (Acute) CHF (congestive heart failure) (Chronic) Chronic low back pain (Chronic) Complementary medicine (Chronic) homeopathic primarily DNI (do not intubate) (Acute) DNR (do not resuscitate) (Acute) Essential hypertension (Acute 01/04/13) echo 2007 [facility] uncontrolled BP (neg w/u for pheo) Foot drop, left (Acute) GERD (gastroesophageal reflux disease) (Chronic) Hip pain, right (Chronic) Hyperlipidemia (Acute) Hypertensive retinopathy (Acute) Impaired left ventricular function [place]2019[place] [facility] [place] Low back pain (Acute) Lumbar stenosis (Acute) Mild obstructive sleep apnea (Acute 11/17/15) [facility] NSTEMI (non-ST elevated myocardial infarction) [place]Acute [place]05/2019[place] [facility] [place] (Acute) Pedal edema (Acute) POLST (Physician Orders for Life-Sustaining Treatment) (Chronic) done 08/08/19 Refusal of blood transfusions as patient is Oriental orthodox (Acute) Renal insufficiency (Chronic) Type II diabetes mellitus with complication, uncontrolled (Acute 05/14/14) Social History/Home Situation: Pt states that she lives alone in a private home. She has a ramp to enter her home. 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 She has a woman come into her home 2 days per week and her sister comes as needed. She states that she was (I) with dressing and bathing. She has lived a pretty sedentary lifestyle prior to admission due to pain. Pt utilizes a 4WW for functional mobility. Equipment owned/DME: 4WW, shower bench, grab bars SUBJECTIVE: NT OBJECTIVE: The following is based on assessment during pts initial consult. ROM: RUE AROM WFL L UE AROM WFL STRENGTH: RUE 4/5 throughout globally LUE 4/5 throughout globally FUNCTIONAL MOBILITY/ADLS: Transfers with FWW Sit-Stand- CGA, FWW Rgisn-pvd-DSX, FWW Chair-Bathroom- CGA, FWW min vc BATHING- Sitting in bathroom (I) with washing face, (B) UE and abdomen. He (B) LE she requires min vc for balance. She was unable to stand at sink for more than 2 minutes before having to rest. DRESSING In seated position Dressing UE- (I) don and doffing hospital gown Dressing LE - (I) don and doffing (B) socks GROOMING- NT TOILETING- Sitting on toilet with CGA and min vc for getting on and off EATING NT BALANCE: Static sitting- Normal Dynamic Sitting - Normal Static Standing- Good Dynamic Standing - Fair- Good ASSESSMENT: Patient is a 84-year-old female referred to occupational therapy services with diagnosis of SWB 1 rehabilitation status s/p ? total hip arthroplasty and acute congestive heart failure. Pt was seen for OT consult only before she was transitioned home with services. OT does feel that pt would benefit from increased HH services to (A) her in the home setting with performance of her ADL/IADL routines and (A) her to baseline level of function. GOALS: Unable to assess as pt was seen for OT consult only. 1. Transfers- with FWW 2. Dressing- (I) in seated position 3. Bathing- (I) in seated position 4. Toileting- on toilet (I) 5. Eating- (I) 6. Pt will be able to brush her teeth and hair (I) standing at sink. PLAN OF CARE/TREATMENT PLAN: Pt was transitioned home on 10/14/19 with HH services. DISCHARGE RECOMMENDATIONS- Based on pts functional (I) in her ADL/IADL routines OT feels that pt would benefit from short term stay at SNF vs. home with increased HH services including PT/OT/Nursing. If pt does return home she will require increased (A) to promote functional (I) in her ADL/IADL routines. TREATMENT TIME/MINUTES/CODES- N/A Katie Yung, OTR/L [facility]
--- NOTE | 2019-10-18 15:15 | PT.INDS ---
Date of service: 10/18/19 PT Notes Visit Reasons: RIGHT HIP REPAIR/SWINGBED Inpatient Physical Therapy Discharge Summary Dates: 10/18/2019 Dates of Service: 10/10/2019 through 10/14/2019 This is a clinical summary of care provided on the duration of dates listed above. No charge was made in the completion of this documentation. Referring Doctor: Ayaan Stovall MD PT Orders: PT CONSULT: Status post Ortho surgery Precautions: Fall. Standard. WBAT on right LE. Patient Profile/Admitting Diagnosis: Linda converted to swing bed level 1 of care as of 10/10/2019 and was re-evaluated for continued skilled physical therapy services and continued medical management of her acute congestive heart failure related to PAF with RVR. Patient is status post right total hip arthroplasty on postoperative day 6. PMHX: Medical History Arthritis (Acute) ASCVD (arteriosclerotic cardiovascular disease) (Acute 04/22/15) [place] of hosp cardiac arrest LAD stent, LVEF 35% Atrial fibrillation (Acute 05/27/11) paroxysmal Oct 2009 Carpal tunnel syndrome on both sides (Acute) CHF (congestive heart failure) (Chronic) Chronic low back pain (Chronic) Complementary medicine (Chronic) homeopathic primarily DNI (do not intubate) (Acute) DNR (do not resuscitate) (Acute) Essential hypertension (Acute 01/04/13) echo 2007 [facility] uncontrolled BP (neg w/u for pheo) Foot drop, left (Acute) GERD (gastroesophageal reflux disease) (Chronic) Hip pain, right (Chronic) Hyperlipidemia (Acute) Hypertensive retinopathy (Acute) Impaired left ventricular function [place]Acute [place]05/2019[place] [facility] [place] Low back pain (Acute) Lumbar stenosis (Acute) Mild obstructive sleep apnea (Acute 11/17/15) [facility] NSTEMI (non-ST elevated myocardial infarction) (Acute [place]05/2019[place] [facility] [place] (Acute) Pedal edema (Acute) POLST (Physician Orders for Life-Sustaining Treatment) (Chronic) done 08/08/19 Refusal of blood transfusions as patient is Judaism (Acute) Renal insufficiency (Chronic) Type II diabetes mellitus with complication, uncontrolled (Acute 05/14/14) Social History/Home Situation: Linda lives alone in a private home. She was independent with a 4-wheeled walker for all mobility ADL performance. She receives Meals on Wheels. Equipment Owned/DME: 4WW Subjective: NT. See most recent TRAVELING STOREKEEPER notes. Objective: General Observation: NT. See most recent TRAVELING STOREKEEPER notes. Mental Status: NT. See most recent TRAVELING STOREKEEPER notes. Pain: NT. See most recent TRAVELING STOREKEEPER notes. ROM: Right Upper Extremity: WFL Left Upper Extremity: WFL. Right Lower Extremity: No active ankle DF. Toe extension available up to 10 degrees. Left Lower Extremity: WFL. Ankle DF to neutral. Strength: Right Upper Extremity: WFL Left Upper Extremity: WFL. Ankle DF 3-/5. Right Lower Extremity: Good quad activation with quad sets. Ankle DF 1/5. Toe extension 2-/5. Left Lower Extremity: Grossly WFL. Ankle DF 3-/5. Sensation: Intact as to pain and pressure on bilateral lower extremities. Bed Mobility/Transfers: Bed Mobility/Transfers: Supine to sit supervision Sit to stand supervision Stand to sit supervision Bed to chair supervision Chair to bed supervision Gait: Linda tolerated level surface ambulation of 150 feet using the 4-wheeled walker with WBAT on the right with stand-by assist. Decreased heel strike due to decreased DF on bilateral lower extremities with the right more than the left. Decreased step height bilaterally with the right more affected than the left. Decreased elin. Step-to gait pattern. Balance: Static Sitting: Normal Dynamic Sitting: Normal Static Standing: Fair Dynamic Standing: Fair Assessment: Linda has demonstrated improvement in functional mobility performance but continues to require use of a front wheeled walker and assistance of one caregiver for safety of transfer and ambulation task performance. There is slow motor return of toe extension on the right side and contraction of ankle to flexors but not strong enough to cause active dorsiflexion as of yet. Patient is on postoperative day 6 and will continue to benefit from skilled physical therapy services to address ongoing impairments in strength, range of motion, and mobility level. Patient continues to present with clinical signs and symptoms consistent with current/admitting diagnoses that have resulted to mobility limitations, gait instability, generalized weakness, and impairment of motor control as demonstrated by the following impairment level findings: 1. Decreased strength to right hip and B ankle major muscle groups 2. Impaired standing balance 3. Impaired activity tolerance 4. Limitation of joint range of motion in B ankles Impairments are continuing to contributing to the following functional limitations: 1. Inability to safely ambulate without assistive device and physical assistance 2. Increase completion time for mobility ADL performance 3. Increased fall risk 4. Inability to negotiate steps alone safely Goals: Goals X1 week 1. Supine-Sit independent MET 2. Sit-Supine independent MET 3. Sit-Stand supervision MET 4. Stand-Sit supervision MET 5. Bed-Chair standby assist MET 6. Chair-Bed standby assist MET 7. Supervision gait on level surface with use of least restrictive device for at least 50 feet without report of pain nor dyspnea NOT MET 8. Supervision stair negotiation while holding onto bilateral rails for at least 5steps without report of pain nor dyspnea NOT MET 9. Independent with home exercise program NOT MET 10. Good static and dynamic standing balance/tolerance NOT MET DISCHARGE RECOMMENDATIONS: Patient will benefit from home health PT services in order to progress mobility level using least restrictive assistive ambulatory device, assess home safety, identify additional equipment needs, and establish a functional maintenance program that will increase ability of patient to remain at home. TREATMENT CODE/TIME: DC Thank you for the opportunity to participate in the care of this patient. Alix Hannah PT, DPT, CLT [facility] [place], [place]
== END 2019-10-14 14:55 | disposition home health service (06) | DRG 560 ==
PROVIDERS: Internal Medicine; Admitting Provider Internal Medicine; PCP Family Medicine; Visit Provider Internal Medicine
DX: S72.051D Unspecified fracture of head of right femur, subsequent encounter for closed fracture with routine healing (principal); E87.1 Hypo-osmolality and hyponatremia; I50.22 Chronic systolic (congestive) heart failure; I82.441 Acute embolism and thrombosis of right tibial vein; I48.20 Chronic atrial fibrillation, unspecified; D50.9 Iron deficiency anemia, unspecified; I11.0 Hypertensive heart disease with heart failure; E11.65 Type 2 diabetes mellitus with hyperglycemia; E78.00 Pure hypercholesterolemia, unspecified; E78.5 Hyperlipidemia, unspecified; I25.2 Old myocardial infarction; Z66 Do not resuscitate; K21.9 Gastro-esophageal reflux disease without esophagitis; M54.5 Low back pain; G89.29 Other chronic pain; G47.33 Obstructive sleep apnea (adult) (pediatric); Z96.641 Presence of right artificial hip joint
CPT/HCPCS: 36415; 80048; 80053; 97110; 97162; 97166; 97530; 97535; 99233; 99306; 99316; 83735; 83880; 85025; 85045; J1756; J3490

== ENCOUNTER 2019-10-22 11:00 | Outpatient (REF) | payer MEDICARE, OTHER, SELFPAY ==
[2019-10-22 11:36] LABS: Anion Gap 10.1 mmol/L (3-11); BUN 21 mg/dL (7-18); CO2 24.9 mmol/L (21.0-32.0); CREATININE 1.14 mg/dL (0.55-1.02); Calcium 8.5 mg/dL (8.5-10.1); Chloride 96 mmol/L (98-107); Estimated GFR 45.52 (mL/min/1.73m2); Glucose 137 mg/dL (74-106); Potassium 4.3 mmol/L (3.5-5.1); Sodium 131 mmol/L (136-145)
[2019-10-22 11:49] LABS: Abs Immature Grans 0.03 k/cumm (0.0-0.09); Absolute Basophil Count 0.08 k/cumm (0.0-0.2); Absolute Eosinophil Count 0.12 k/cumm (0.0-0.7); Absolute Lymphocyte Count 1.45 k/cumm (1.2-3.4); Absolute Monocyte Count 0.69 k/cumm (0.11-0.7); Basophils % 1.2; Eosinophils % 1.7; HCT 28.7 % (36.0-46.0); HGB 9.4 g/dL (12.0-15.5); Immature Grans % 0.4 %; Lymphocytes % 21.1; Mean Corp. HGB Concentration 32.8 g/dL (32.0-36.0); Mean Corpuscular Hemoglobin 29.4 pg (27.0-33.0); Mean Corpuscular Volume 89.7 fL (80-95); Mean Platelet Volume 12.1 fL (8.0-11.0); Neutrophils % 65.6; Platelet Count 351 x1000/uL (130-400); RBC Distribution Width 15.5 % (11.7-14.6); White Blood Cell Count 6.87 k/cumm (4.4-10.8)
== END 2019-10-22 11:20 ==
LOC: LBN 11:00
PROVIDERS: PCP Family Medicine; Visit Provider Family Medicine
DX: E87.1 Hypo-osmolality and hyponatremia (principal); I48.91 Unspecified atrial fibrillation; E11.9 Type 2 diabetes mellitus without complications; I50.23 Acute on chronic systolic (congestive) heart failure
CPT/HCPCS: 80048; 83735; 85025

== ENCOUNTER 2019-11-05 11:47 | Outpatient (CLI) | payer MEDICARE, OTHER, SELFPAY ==
--- NOTE | 2019-11-05 11:00 | DI.RAD_ITS ---
EXAM: XR HIP RT COMPLETE AP PELVIS CLINICAL HISTORY: f/u R DARIEL. TECHNIQUE: 2D digital imaging was performed. COMPARISON: CR XR HIP RT COMPLETE AP PELVIS from 09/27/2019 CR XR PELVIS AP from 10/08/2019 FINDINGS: BONES: There are stable post operative changes present. No acute fracture or dislocation. JOINTS: The joint spaces are well maintained. No joint effusion is present. SOFT TISSUE: Vascular calcifications are present. IMPRESSION: Stable postoperative changes. DATA REPOSITORY: RADIATION DOSE DELIVERED:
== END 2019-11-05 12:07 ==
PROVIDERS: PCP Family Medicine; Referring Provider Family Medicine; Visit Provider Student in an Organized Health Care Education/Training Program
DX: Z96.641 Presence of right artificial hip joint (principal); S72.051D Unspecified fracture of head of right femur, subsequent encounter for closed fracture with routine healing; X58.XXXD Exposure to other specified factors, subsequent encounter
CPT/HCPCS: 73502

== ENCOUNTER → 2019-11-13 13:02 | Outpatient (BNVA) | payer MEDICARE, OTHER, SELFPAY | PROVIDERS: PCP Family Medicine; Referring Provider Family Medicine; Visit Provider Internal Medicine Cardiovascular Disease | DX: I48.11 Longstanding persistent atrial fibrillation (principal); I11.0 Hypertensive heart disease with heart failure; I25.10 Atherosclerotic heart disease of native coronary artery without angina pectoris; I50.9 Heart failure, unspecified; E11.69 Type 2 diabetes mellitus with other specified complication; Z79.4 Long term (current) use of insulin | CPT/HCPCS: 99214 ==

== ENCOUNTER → 2019-12-06 10:18 | Outpatient (BNVA) | payer MEDICARE, OTHER, SELFPAY | PROVIDERS: PCP Family Medicine; Visit Provider Student in an Organized Health Care Education/Training Program | DX: S72.051D Unspecified fracture of head of right femur, subsequent encounter for closed fracture with routine healing; X58.XXXD Exposure to other specified factors, subsequent encounter; G56.03 Carpal tunnel syndrome, bilateral upper limbs; E11.69 Type 2 diabetes mellitus with other specified complication; I50.9 Heart failure, unspecified; I11.0 Hypertensive heart disease with heart failure; Z98.890 Other specified postprocedural states | CPT/HCPCS: 99214 ==

== ENCOUNTER 2020-01-30 07:55 | Day surgery (SDC) | payer MEDICARE, OTHER, SELFPAY ==
[2020-01-30 08:08] VITALS: BP 115/58; PULSE 53; RESP 18; TEMP 36.6; O2SAT 97
[2020-01-30] MEDS: Lactated Ringers 1,000 ML 80 ML IV (08:52)
--- NOTE | 2020-01-30 09:13 | W.PREOPHP ---
Date of service: 01/30/20 Time of Service: 09:13 Assessment and Plan Assessment and plan (1) Carpal tunnel syndrome on both sides: Status: Acute Assessment and plan: Linda is an 84-year-old who has known carpal tunnel syndrome of both sides. The left side bothers her the most and she desires this to be fixed with carpal tunnel release. I have previously discussed this with her and her son in the office. I reviewed the risk of the procedure to include bleeding, infection, pain, stiffness, damage to nerves and vessels, damage to muscle and tendons, continued numbness, continued symptoms, damage to the nerve. Despite these risk, she elects to proceed. She states quarantine in her home. She has no sick contacts has not traveled. We will proceed with carpal tunnel release of the left side with a MAC anesthetic. History of Present Illness History of Present Illness Chief Complaint: Left Carpal Tunnel Syndrome Narrative: Linda is an 84-year-old who have seen previously for carpal tunnel syndrome. Her left side bothers her the most with persistent numbness and tingling. The numbness and tingling is mostly of the thumb, index finger, and middle finger. It has been worsening over time and is exacerbated with the use of a walker and with sleep. She has tried conservative options but continues to have limitations. She denies any change to her medical history. She did stop her apixaban on Tuesday. She has been managing her diabetes as per usual with a hyper or hypoglycemic events. She denies any chest pain or shortness of breath. She does not leave her home. She has no sick contacts. She has not traveled. Review of Systems All systems reviewed & are unremarkable except as noted in HPI and below PFSH Medical History Acute on chronic systolic heart failure Arthritis ASCVD (arteriosclerotic cardiovascular disease) (04/22/15) [place] with out of hosp cardiac arrest LAD stent, LVEF 35% Atrial fibrillation (05/27/11) paroxysmal Oct 2009 Carpal tunnel syndrome on both sides CHF (congestive heart failure) Chronic HFrEF (heart failure with reduced ejection fraction) Chronic low back pain Complementary medicine homeopathic primarily: DNI (do not intubate) DNR (do not resuscitate) Essential hypertension (10/10/13) echo 2008 [facility] uncontrolled BP (neg w/u for pheo) Foot drop, left GERD (gastroesophageal reflux disease) Goals of care, counseling/discussion Hyperlipidemia Hypertensive retinopathy Hyponatremia Impaired left ventricular function (~05/2019) [facility] [place] 35% Leg length discrepancy Lives alone Low back pain Lumbar stenosis Mild obstructive sleep apnea (11/17/15) [facility] NSTEMI (non-ST elevated myocardial infarction) (~05/2019) [facility] [place] Palliative care patient Pedal edema POLST (Physician Orders for Life-Sustaining Treatment) Refusal of blood transfusions as patient is Gnosticism Renal insufficiency Type II diabetes mellitus with complication, uncontrolled (05/14/14) Surgical History History of appendectomy History of right hip replacement Family History Brother Cancer Brother Cancer Leukemia Mother Asthma Sister Cancer Brother Dementia lives in SNF Son No problems noted. Son Paraplegic spinal paralysis motor vehicle crash Son No problems noted. Son No problems noted. Social History Smoking/Tobacco Use Status: Never Second Hand Exposure: No Smoking risk assessment performed?: Yes Alcohol Intake: never Drug use: Never Substance use type: does not use Caregiver/Support person: No Household members: none Housing: house Number of Children: 4 number of grandchildren: 5 Communication Needs: Corrective Lenses Education Level: high school Do you need help understanding health information?: Often current occupation: Retired Pets and animals: Yes Pets and animals: cat(s) and dog(s) Current gender identity: female What is your relationship status?: How often do you talk on the phone with friends or family?: three or more times per week How often do you get together with friends or relatives?: three or more times per week How often do you attend episcopal or zoroastrian services?: 4 or more times per year Panel score (0-1 are the most socially isolated patients): 2 What type of physical activity do you participate in: assisted ambulation Duration: 15-30 minutes/day Frequency: does not exercise Faviola/Mormon: Gnosticism Special faviola needs: Yes (no transfusion) Agree to transfusion: No Seatbelt use: always Drive intox or ride w/intox retail delivery driver: No Do you feel safe at home: Yes Do you feel safe in your relationship?: Yes Additional Social history: Lives alone but sons and their spouses check in regularly. Linda's family hires [employer] to help with housework mostly. Hip pain so much better since her surgery with Dr Stovall. Up and about easily within her house. No pain at all. Take a homeopathic arnica based medication for her left thigh pain. Happy overall. Life is so much better since my surgery. I can take care of myself! Meds Home Medications and Allergies Home Medications Medication Instructions Recorded Confirmed Type ascorbic acid (vitamin C) 2 tab PO DAILY PRN 07/15/12 01/30/20 History multivitamin [Daily Multi-Vitamin] 1 tab PO DAILY 07/15/12 01/30/20 History chromium picolinate 1,000 mcg PO daily prn 08/13/14 01/30/20 History acetaminophen 500 mg capsule 500 mg PO BID PRN cap 12/13/18 01/30/20 History nitroglycerin 0.4 mg sublingual 0.4 mg SUBLINGUAL Q 5 MIN PRN #25 04/17/19 01/30/20 Rx tablet tab-cap pantoprazole 40 mg tablet,delayed 40 mg PO DAILY #90 tab-cap 04/17/19 01/30/20 Rx release pen needle, diabetic 32 gauge x #100 each 04/17/19 01/28/20 Rx 5/32 aspirin 81 mg tablet,delayed 81 mg PO DAILY 06/20/19 01/30/20 History release Tresiba FlexTouch U-100 18 unit SC QHS 10/01/19 01/30/20 History bisacodyl 10 mg NM DAILY PRN PRN #10 ea 10/14/19 01/30/20 Rx docusate sodium [Colace] 100 mg PO BID #60 cap 10/14/19 01/30/20 Rx ketoconazole 1 applic TOPICAL QPM #30 gm 10/14/19 01/30/20 Rx magnesium oxide 400 mg PO DAILY #10 tab 10/14/19 01/30/20 Rx metoprolol succinate 100 mg PO DAILY #60 tab 10/14/19 01/30/20 Rx sennosides [Senokot] 1 tab PO BID PRN PRN #60 tab 10/14/19 01/30/20 Rx diltiazem HCl 180 mg 180 mg PO HS #90 cap 10/31/19 01/30/20 Rx capsule,extended release 24 hr apixaban 5 mg tablet 5 mg PO BID #60 tab 11/06/19 01/30/20 Rx lisinopril 5 mg tablet 2.5 mg PO HS #45 tab 11/07/19 01/30/20 Rx rosuvastatin 20 mg tablet 20 mg PO QPM #90 tab 11/07/19 01/30/20 Rx warfarin 5 mg tablet 2.5 - 5 mg PO DAILY #60 tab 11/23/19 01/30/20 Rx furosemide 20 mg tablet 40 mg PO DAILY #180 tab-cap 12/25/19 01/30/20 Rx Allergies Allergy/AdvReac Type Severity Reaction Status Date / Time Tetanus Vaccines and Toxoid Allergy Intermediate Verified 01/30/20 08:19 diltiazem AdvReac Severe tired, Verified 01/30/20 08:19 hand pain doxycycline AdvReac Severe GI UPSET Verified 01/30/20 08:19 verapamil AdvReac Severe dizziness Verified 01/30/20 08:19 doxazosin mesylate AdvReac Intermediate muscle Verified 01/30/20 08:19 [From Sydnee] aches atenolol AdvReac Mild leg pain Verified 01/30/20 08:19 Exam Const General: cooperative, healthy appearing, comfortable and no acute distress Nutritional Appearance: average body habitus Orientation: alert and awake Resp Effort & Inspection: normal respiratory effort Auscultation: clear to auscultation bilaterally Cardio Rate: regular rate Rhythm: regular rhythm and other (No apparent atrial fibrillation during exam today) Extrem Other: Left wrist without overlying skin changes. No masses. No defects of the proposed surgical site. Decreased sensation in the median nerve distribution. Results Last Vital Signs Temp 36.6 C 01/30/20 08:08 Pulse 53 L 01/30/20 08:08 Resp 18 01/30/20 08:08 BP 115/58 L 01/30/20 08:08 Pulse Ox 97 01/30/20 08:08
--- NOTE | 2020-01-30 09:18 | W.PM.DSUDISC ---
Discharge Plan Disposition Patient Disposition: HOME Condition: Good Discharge Details Reason For Visit: Left Carpal Tunnel Syndrome Attending Provider: Ayaan Stovall Primary Care Provider: Rad Yeh Home Meds and New Rx's Prescriptions: Continued diltiazem HCl 180 mg capsule,extended release 24hr 180 mg PO HS Qty: 90 RF: 3 nitroglycerin 0.4 mg tablet, sublingual 0.4 mg Sublingual Q 5 MIN PRN Qty: 25 RF: 4 pantoprazole 40 mg tablet,delayed release (DR/EC) 40 mg PO DAILY Qty: 90 RF: 4 (DME) pen needle, diabetic [BD Ultra-Fine Juliann Pen Needle] 32 gauge x 5/32 needle See Dose Instructions .ROUTE .MEDSUPPLY Qty: 100 RF: 3 multivitamin [Daily Multi-Vitamin] 1 EACH tablet 1 tab PO DAILY RF: 0 ascorbic acid (vitamin C) 500 MG tablet 2 tab PO DAILY PRN RF: 0 Hold Instructions: Patient reports getting her vitamin C from multivitamin. chromium picolinate 1,000 MCG tablet 1,000 mcg PO daily prn RF: 0 Hold Instructions: Patient reports not taking for a while. aspirin [Adult Low Dose Aspirin] 81 mg tablet,delayed release (DR/EC) 81 mg PO DAILY RF: 0 Eliquis 5 mg tablet 5 mg PO BID Qty: 60 RF: 11 lisinopril 5 mg tablet 2.5 mg PO HS Qty: 45 RF: 3 rosuvastatin [Crestor] 20 mg tablet 20 mg PO QPM Qty: 90 RF: 3 warfarin 5 mg tablet 2.5 - 5 mg PO DAILY Qty: 60 RF: 5 furosemide 20 mg tablet 40 mg PO DAILY Qty: 180 RF: 3 Tresiba FlexTouch U-100 100 unit/mL (3 mL) insulin pen 18 unit SC QHS RF: 0 docusate sodium [Colace] 100 mg Capsule 100 mg PO BID Qty: 60 RF: 0 magnesium oxide 400 mg (241.3 mg magnesium) Tablet 400 mg PO DAILY Qty: 10 RF: 0 sennosides [Senokot] 8.6 mg Tablet 1 tab PO BID PRN PRNQty: 60 RF: 0 bisacodyl 10 mg Suppository 10 mg [place] DAILY PRN PRNQty: 10 RF: 0 ketoconazole 2 % Cream 1 applic topical QPM Qty: 30 RF: 1 metoprolol succinate 50 mg tablet extended release 24 hr 100 mg PO DAILY Qty: 60 RF: 11 Changed acetaminophen 500 mg capsule 500 mg PO Q4H PRN PRN (Reason: pain) Qty: 0 RF: 0 Discharge Instructions Additional Instructions: Use Tylenol and occassional Ibuprofen for pain relief. You may apply ice to the surgical site. Stand Alone Forms: Wilman Gonzalez Tunnel Release Referrals: Ayaan Stovall MD [ [facility] STAFF PHYSICIAN] - Activity:: Elevate Remove Dressings/Wound Care:: 48 hours Shower/Bathe:: 48 hours Diet:: As Tolerated Discharge Orders Discharge Orders: Discharge Order (Routine); Ordered 01/30/20 Ordered By: Ayaan Stovall DS: Diagnosis Discharge Diagnosis (1) Carpal tunnel syndrome on both sides: Status: Acute
[2020-01-30] MEDS: ceFAZolin 2 GM/50 ML BAG IVPB (09:55)
[2020-01-30] MEDS: Sodium Bicarbonate 50 MEQ/50 ML VIAL (10:05)
[2020-01-30 10:48] VITALS: BP 114/56; PULSE 67; RESP 17; TEMP 36.6; O2SAT 97
--- NOTE | 2020-01-31 06:07 | ROE_ITS ---
Date of service: 01/30/20 Time of Service: 10:07 Operative Note Operative Note DATE OF PROCEDURE: 01/30/20 PRE-OP DIAGNOSIS: Left Carpal Tunnel Syndrome POST-OP DIAGNOSIS: same PROCEDURE: Left Endoscopic Carpal Tunnel Release SURGEON: Ayaan Stovall ANESTHESIA: MAC ESTIMATED BLOOD LOSS: 0 PATHOLOGY: none sent TOURNIQUET TIME: 7 COMPLICATIONS: None Patient was transported to: same day Patient's condition: stable Indications: I have seen Linda in clinic for symptoms of carpal tunnel syndrome. The numbness, tingling, and pain limited function. Clinical exam findings with nerve conduction tests confirmed the diagnosis of carpal tunnel syndrome. Nonoperative measures such as bracing, time, activity modifications had been tried but disability and pain persisted. I discussed carpal tunnel release with the patient. I reviewed the risks of the procedure to include, but not limited to, bleeding, infection, pain, stiffness, incomplete release, damage to nerves or vessels, persistent numbness, recurrence. Despite these risks, the patient elected to proceed. Findings: There was tightened carpal tunnel. This was dilated and released successfully with the endoscopic with increased space within the tunnel. The antebrachial fascia was released proximally freeing the median nerve at the wrist. Procedure Description: Linda was greeted in the preoperative holding area where the correct side was identified and marked. The consent was reviewed with the patient and signed. The history and physical was updated. All questions were answered. She was taken back to the operating room. The patient was placed into the supine position on the operating room table with the left arm on an arm board. A nonsterile tourniquet was placed high onto the arm. All bony prominences were well padded. Prophylactic antibiotics in the form of Cefazolin were administered. The left arm was then prepped with Chloraprep and draped in a standard fashion with stockinette and extremity drape. A timeout to confirm correct identity, side and site, procedure, allergies, anesthesia, and medical concerns was performed. The surgical site was marked in the volar wrist creases in line with the radial border of the fourth ray. This area was anesthetized with approximately 6cc of 1% Lidocaine. The limb was then exsanguinated with an Esmarch. The skin was incised with a 15 blade, approximately 1cm. The skin only was cut and the deeper tissue was dissected bluntly with a tenotomy scissor, avoiding passing nerve and venous structures. The fascia was penetrated and opened bluntly. A two-prong skin hook was placed under this proximal fascial edge. A series of hamate finders were used to identify and dilate the carpal tunnel. Synovial elevator was used to free synovial attachments to the underside of the transverse carpal ligament. My thumb was kept in the palm to jeevan the distal extent of the carpal tunnel and correctly position the hand. The Microaire endoscope was inserted without difficulty and without resistance. Excellent vis ualization showed horizontally running fibers of the transverse carpal ligament (TCL). The distal extent of the TCL was visualized and the end of the scope palpated with the thumb. The blade was elevated and withdrawn from distal to proximal. The TCL was split into two flaps. The endoscope was reinserted to confirm complete release and any remnant ligament was incised. The scope was withdrawn and the proximal aspect of the carpal tunnel was grossly inspected and appeared release with the median nerve visible. The antebrachial fascia at the level of the wrist was then freed from the overlying skin and then the underlying median nerve with blunt dissection. This was transected longitudinally for about 3cm proximal to the wrist incision. The wound was then irrigated with easy flow of irrigant distally and proximally. The incision was closed with a single 4-0 Nylon suture. The wound was dressed with Xeroform, Gauze, Kerlix and Gilberto. The tourniquet was deflated with the initial dressing and held with some pressure. Blood flow returned easily to all digits with capillary refill less than 2 seconds. The patient tolerated the procedure well and was returned to the Same Day Surgery area in a stable condition suffering no known complication.
== END 2020-01-30 11:20 | disposition home or self-care (01) ==
PROVIDERS: PCP Family Medicine; Visit Provider Student in an Organized Health Care Education/Training Program
PROC: 01N54ZZ Release Median Nerve, Percutaneous Endoscopic Approach (ICD-10-PCS; CPT 29848; principal; 2020-01-30 09:45)
DX: G56.02 Carpal tunnel syndrome, left upper limb (principal); I50.22 Chronic systolic (congestive) heart failure; I25.10 Atherosclerotic heart disease of native coronary artery without angina pectoris; I48.0 Paroxysmal atrial fibrillation; I11.0 Hypertensive heart disease with heart failure
CPT/HCPCS: 29848; NC; J0690; J2001; J2704; L3650

== ENCOUNTER 2020-02-08 01:48 | Outpatient (CLI) | payer MEDICARE, OTHER, SELFPAY | END 2020-02-08 02:08 | PROVIDERS: PCP Family Medicine; Visit Provider Student in an Organized Health Care Education/Training Program | DX: Z47.89 Encounter for other orthopedic aftercare (principal); G56.03 Carpal tunnel syndrome, bilateral upper limbs ==

== ENCOUNTER 2020-02-26 02:48 | Outpatient (CLI) | payer MEDICARE, OTHER, SELFPAY ==
[2020-02-26 12:48] LABS: INR 1.8 (0.9-1.1); Prothrombin Time 17.5 sec (9.3-11.0)
== END 2020-02-26 03:08 ==
PROVIDERS: PCP Family Medicine; Visit Provider Family Medicine
DX: I48.11 Longstanding persistent atrial fibrillation (principal); Z79.01 Long term (current) use of anticoagulants; I50.22 Chronic systolic (congestive) heart failure; I25.10 Atherosclerotic heart disease of native coronary artery without angina pectoris; R60.0 Localized edema
CPT/HCPCS: 36415; 99214; 85610

== ENCOUNTER → 2020-03-24 09:58 | Outpatient (BNVA) | payer MEDICARE, OTHER, SELFPAY | PROVIDERS: PCP Family Medicine; Visit Provider Student in an Organized Health Care Education/Training Program | DX: Z47.89 Encounter for other orthopedic aftercare (principal); R20.2 Paresthesia of skin ==

== ENCOUNTER 2020-04-03 02:27 | Outpatient (CLI) | payer MEDICARE, OTHER, SELFPAY ==
[2020-04-03 13:03] LABS: Chloride 104 mmol/L (98-107); Potassium 3.7 mmol/L (3.5-5.1); Sodium 140 mmol/L (136-145)
[2020-04-03 13:14] LABS: Hemoglobin A1C 7.9 % (<5.7)
[2020-04-03 13:36] LABS: INR 1.3 (0.9-1.1); Prothrombin Time 12.8 sec (9.3-11.0)
== END 2020-04-03 02:47 ==
PROVIDERS: PCP Family Medicine; Visit Provider Family Medicine
DX: R73.9 Hyperglycemia, unspecified (principal); E87.1 Hypo-osmolality and hyponatremia; I48.11 Longstanding persistent atrial fibrillation; Z79.01 Long term (current) use of anticoagulants
CPT/HCPCS: 36415; 80051; 83036; 85610

== ENCOUNTER 2020-04-10 03:04 | Outpatient (CLI) | payer MEDICARE, OTHER, SELFPAY ==
[2020-04-10 11:22] LABS: INR 1.9 (0.9-1.1); Prothrombin Time 19.2 sec (9.3-11.0)
== END 2020-04-10 03:24 ==
PROVIDERS: PCP Family Medicine; Visit Provider Family Medicine
DX: I82.401 Acute embolism and thrombosis of unspecified deep veins of right lower extremity (principal); Z79.01 Long term (current) use of anticoagulants
CPT/HCPCS: 36415; 85610

== ENCOUNTER 2020-04-17 04:40 | Outpatient (CLI) | payer MEDICARE, OTHER, SELFPAY ==
[2020-04-17 13:27] LABS: INR 1.8 (0.9-1.1); Prothrombin Time 17.9 sec (9.3-11.0)
== END 2020-04-17 05:00 ==
PROVIDERS: PCP Family Medicine; Visit Provider Family Medicine
DX: I48.91 Unspecified atrial fibrillation (principal); Z79.01 Long term (current) use of anticoagulants
CPT/HCPCS: 36415; 85610

== ENCOUNTER 2020-04-24 02:48 | Outpatient (CLI) | payer MEDICARE, OTHER, SELFPAY ==
[2020-04-24 12:38] LABS: INR 1.5 (0.9-1.1); Prothrombin Time 14.6 sec (9.3-11.0)
== END 2020-04-24 03:08 ==
PROVIDERS: PCP Family Medicine; Visit Provider Family Medicine
DX: I82.401 Acute embolism and thrombosis of unspecified deep veins of right lower extremity (principal); I48.11 Longstanding persistent atrial fibrillation; Z79.01 Long term (current) use of anticoagulants
CPT/HCPCS: 36415; 85610

== ENCOUNTER 2020-05-06 02:19 | Outpatient (CLI) | payer MEDICARE, OTHER, SELFPAY ==
[2020-05-06 13:02] LABS: Prothrombin Time 29.7 sec (9.3-11.0)
== END 2020-05-06 02:20 | disposition home or self-care (01) ==
LOC: LOS 02:19
PROVIDERS: PCP Family Medicine; Visit Provider Family Medicine
DX: I48.11 Longstanding persistent atrial fibrillation (principal); Z79.01 Long term (current) use of anticoagulants
CPT/HCPCS: 36415; 85610

== ENCOUNTER 2020-05-07 09:45 | Inpatient (IN) | payer MEDICARE, OTHER, SELFPAY ==
[2020-05-07] VITALS (73 sets, daily range): BP systolic 115–167; BP diastolic 84–116; PULSE 93–130; RESP 14–31; TEMP 36.7–36.8; O2SAT 90–100
--- NOTE | 2020-05-07 09:30 | RT.EKG_ITS ---
APPROVED REPORT Exam: Resting ECG Patient Location: E HR:104 bpm ECG Measurements Heart Rate 104 AXIS WY [id number] P [id number] QRSd 138 QRS -33 QT 374 T 89 QTc 505 Conclusion Atrial flutter...A-rate 283 Left bundle branch block...QRSd>120, broad/notched R I have reviewed and interpreted ECG and agree with software generated interpretation.
--- NOTE | 2020-05-07 09:35 | W.ED.GENAD ---
Discharge Plan Disposition Patient Disposition: [facility] INPATIENT Condition: Stable Discharge Details Clinical Impression: Dizziness, UTI (urinary tract infection), Elevated troponin Admit Date/Time: 05/07/20 13:59 Admit Provider: Cristin Finley Attending Provider: Cristin Finley Primary Care Provider: Rad Yeh. ED Provider: Juanita Huang Discharge Data Discharge Date/Time-TO BE ENTERED AT DEPARTURE: 05/07/20 17:41 Medical Decision Making 1010 -- 85-year-old female with a history of CHF, atrial fibrillation on Coumadin, GERD, hypertension, hyperlipidemia, NSTEMI, diabetes, presents for dizziness and hearing loss this morning. States her dizziness and hearing loss is somewhat improved. EKG on arrival notes a rate of 104, atrial A. fib versus flutter, left bundle branch block, no acute change from previous. Heart rate tachycardic on arrival, now within normal limits. She is afebrile and appears nontoxic. She has no focal deficits on exam. Differential diagnosis includes vertigo, dehydration, electrolyte abnormality, UTI, pneumonia, ACS, CVA, other acute neurologic process, etc. Will place an IV, screening labs, urinalysis, CT head and chest x-ray and give fluids and reassess. 1330 -- Labs reviewed. Normal white blood cell count. Troponin bumped at 0.14. Urinalysis notes mild UTI. Will order a dose of Rocephin. CT head and chest x-ray negative. Repeat troponin obtained and slightly downtrending at 0.13. Patient reassessed and she denies any acute complaints. Will admit for serial troponins, IV fluids and antibiotics. Case discussed with hospitalist who accepts patient for admission. 1445 -- patient complained of some shortness of breath to nurse and requested nasal cannula oxygen. Her heart rate is between 110s to 120s which appears to increase with sitting up. Her heart rate remains in the 110s to 120s while eating. It appears consistent with atrial fibrillation on the monitor. Doubt PE as her INR is supratherapeutic. Her oxygen saturation is 96% on NC. Will give a dose of 5 mg of metoprolol IV and reassess. Heart rate improved to 90s. Patient remains hemodynamically stable. Medical Records Medical records reviewed: Yes I reviewed the patient's medical records. Imaging Data Radiologic Study: Radiologist's impression: XR CHEST 2V PA LATERAL CLINICAL HISTORY: elevated trop, dizziness, r/o acute disease TECHNIQUE: 2D digital imaging was performed. COMPARISON: CR XR CHEST 2V PA LATERAL from 08/01/2019 FINDINGS: Cardiomegaly is again noted, unchanged. The aorta shows tortuosity and calcification. There is increased vascular prominence and mildly increased interstitial changes. No effusions or focal infiltrates are seen. The findings could represent mild CHF. IMPRESSION: Cardiomegaly and question of mild CHF. CT HEAD WO CLINICAL HISTORY: dizziness, hearing loss, r/o acute cva. TECHNIQUE: Imaging Protocol: Axial computed tomography images with coronal and sagittal reformatted images were created and reviewed COMPARISON: No exams were available for comparison FINDINGS: Ventricles and Extra axial spaces: Normal in size and morphology for the patient's age. No significant atrophy. Hemorrhage: None. Cerebral parenchyma: Patchy areas of decreased attenuation in the white matter likely reflecting sequela of microvascular disease. No evidence of acute infarct. Midline shift: None. Brainstem/Cerebellum: Normal. Calvarium: Normal. Visualized Paranasal sinuses/Mastoids: Clear. Soft Tissues: Unremarkable. IMPRESSION: No acute intracranial process. Lab Data Lab results reviewed: Yes I reviewed the patient's lab results. Labs: 05/07/20 10:14 Urine - Reflex from Ua Urine Culture - Pending Laboratory Tests Range/Units 05/07/20 05/07/20 05/07/20 10:00 10:00 10:00 WBC (4.4-10.8) 10^3/uL 10.24 RBC (3.93-5.22) 10^6/uL 4.33 Hgb (11.2-15.7) g/dL 13.0 Hct (36.0-46.0) % 39.1 MCV (80-95) fL 90.3 MCH (27.0-33.0) pg 30.0 MCHC (32.0-36.0) % 33.2 RDW (11.7-14.6) % 13.5 Plt Count (130-400) 10^3/uL 162 MPV (8.0-11.0) fL 12.8 H Immature Gran % 0.2 Neutrophils % 79.5 Lymphocytes % 13.0 Monocytes % 5.7 Eosinophils % 1.0 Basophils % 0.6 Nucleated RBC % % 0 Absolute Neutrophils (1.2-6.7) 10^3/uL 8.15 H Absolute Lymphocytes (1.2-3.4) 10^3/uL 1.33 Absolute Monocytes (0.1-0.8) 10^3/uL 0.58 Absolute Eosinophils (0.0-0.7) 10^3/uL 0.10 Absolute Basophils (0.0-0.2) 10^3/uL 0.06 PT (9.3-11.0) sec 33.1 H INR (0.9-1.1) 3.4 H APTT (21.0-27.5) sec 39.4 H Sodium (136-145) mmol/L 137 Potassium (3.5-5.1) mmol/L 3.7 Chloride (98-107) mmol/L 101 Carbon Dioxide (21.0-32.0) mmol/L 27.2 Anion Gap (3-11) mmol/L 8.8 BUN (7-18) mg/dL 22 H Creatinine (0.55-1.02) mg/dL 1.2 H Estimated GFR/1.73 m2 (mL/min/1.73m2) 42.80 Glucose (74-106) mg/dL 148 H Calcium (8.5-10.1) mg/dL 8.9 Magnesium (1.8-2.4) mg/dL 2.1 Total Bilirubin (0.2-1.0) mg/dL 0.4 AST (15-37) U/L 22 ALT (14-59) U/L 29 Alkaline Phosphatase (46-116) U/L 88 Troponin I (<0.06) ng/mL 0.14 H* Total Protein (6.4-8.2) g/dL 7.7 Albumin (3.4-5.0) g/dL 3.5 Urine Color (Yellow) Urine Clarity (Clear) Urine pH (5-8) Ur Specific [place] (1.005-1.025) Urine Protein (Negative) mg/dL Urine Ketones (Negative) mg/dL Urine Blood (Negative) Urine Nitrite (Negative) Urine Bilirubin (Negative) Urine Urobilinogen (Up TO 0.2) EU/dL Ur Leukocyte Esterase (Negative) Urine RBC (0-2) HPF Urine WBC (0-5) HPF Ur Epithelial Cells (Negative) HPF Urine Crystals (Negative) HPF Urine Bacteria (Negative) HPF Urine Casts (Negative) LPF Urine Mucus (Negative) Urine Other (Negative) Ur Culture Indicated? Urine Glucose (Negative) mg/dL Range/Units 05/07/20 05/07/20 10:14 12:55 WBC (4.4-10.8) 10^3/uL RBC (3.93-5.22) 10^6/uL Hgb (11.2-15.7) g/dL Hct (36.0-46.0) % MCV (80-95) fL MCH (27.0-33.0) pg MCHC (32.0-36.0) % RDW (11.7-14.6) % Plt Count (130-400) 10^3/uL MPV (8.0-11.0) fL Immature Gran % Neutrophils % Lymphocytes % Monocytes % Eosinophils % Basophils % Nucleated RBC % % Absolute Neutrophils (1.2-6.7) 10^3/uL Absolute Lymphocytes (1.2-3.4) 10^3/uL Absolute Monocytes (0.1-0.8) 10^3/uL Absolute Eosinophils (0.0-0.7) 10^3/uL Absolute Basophils (0.0-0.2) 10^3/uL PT (9.3-11.0) sec INR (0.9-1.1) APTT (21.0-27.5) sec Sodium (136-145) mmol/L Potassium (3.5-5.1) mmol/L Chloride (98-107) mmol/L Carbon Dioxide (21.0-32.0) mmol/L Anion Gap (3-11) mmol/L BUN (7-18) mg/dL Creatinine (0.55-1.02) mg/dL Estimated GFR/1.73 m2 (mL/min/1.73m2) Glucose (74-106) mg/dL Calcium (8.5-10.1) mg/dL Magnesium (1.8-2.4) mg/dL Total Bilirubin (0.2-1.0) mg/dL AST (15-37) U/L ALT (14-59) U/L Alkaline Phosphatase (46-116) U/L Troponin I (<0.06) ng/mL 0.13 H* Total Protein (6.4-8.2) g/dL Albumin (3.4-5.0) g/dL Urine Color (Yellow) Yellow Urine Clarity (Clear) Clear Urine pH (5-8) 7.0 Ur Specific [place] (1.005-1.025) 1.025 Urine Protein (Negative) mg/dL >=300 H Urine Ketones (Negative) mg/dL Negative Urine Blood (Negative) Small H Urine Nitrite (Negative) Negative Urine Bilirubin (Negative) Negative Urine Urobilinogen (Up TO 0.2) EU/dL 0.2 Ur Leukocyte Esterase (Negative) Small H Urine RBC (0-2) HPF 3-5 H Urine WBC (0-5) HPF 5-10 Ur Epithelial Cells (Negative) HPF Rare Urine Crystals (Negative) HPF Negative Urine Bacteria (Negative) HPF Moderate Urine Casts (Negative) LPF Negative Urine Mucus (Negative) Moderate Urine Other (Negative) Negative Ur Culture Indicated? Yes Urine Glucose (Negative) mg/dL Negative ECG Data Attestation: I personally reviewed and interpreted this ECG (s) as follows: Interpretation: Rate of 104, atrial flutter, left bundle branch block. No acute change in previous EKG. HPI General Mode of arrival: ambulatory. Date/Time Provider Initiated Documentation: 05/07/20 09:56. Limitations to Documentation: no limitations. Information obtained by: patient. HPI Narrative: Pt is an 85yo female with a history of anxiety, diabetes, hypertension, SC presents for dizziness and hearing loss this morning. Patient states she awoke from sleep at 2 AM with lightheadedness. She states when she awoke a few hours later she noted she had difficulty hearing in both of her ears. Patient states her hearing has since improved but she still feels some dizziness. She denies any spinning sensation. She states she had been feeling fine up until earlier this morning. She denies any recent travel, fever, chest pain, shortness of breath, abdominal pain, nausea, vomiting, diarrhea or urinary symptoms. Related Data Home Medications Medication Instructions Recorded Confirmed ascorbic acid (vitamin C) 2 tab PO DAILY PRN 07/15/12 05/07/20 multivitamin [Daily Multi-Vitamin] 1 tab PO DAILY 07/15/12 05/07/20 chromium picolinate 1,000 mcg PO daily prn 08/13/14 05/07/20 nitroglycerin 0.4 mg sublingual 0.4 mg SUBLINGUAL Q 5 MIN PRN #25 04/17/19 05/07/20 tablet tab-cap pantoprazole 40 mg tablet,delayed 40 mg PO DAILY #90 tab-cap 04/17/19 05/07/20 release pen needle, diabetic 32 gauge x #100 each 04/17/19 05/07/20 aspirin 81 mg tablet,delayed 81 mg PO DAILY 06/20/19 05/07/20 release Tresiba FlexTouch U-100 18 unit SC QHS 10/01/19 05/07/20 bisacodyl 10 mg HI DAILY PRN PRN #10 ea 10/14/19 05/07/20 docusate sodium [Colace] 100 mg PO BID #60 cap 10/14/19 05/07/20 ketoconazole 1 applic TOPICAL QPM #30 gm 10/14/19 05/07/20 magnesium oxide 400 mg PO DAILY #10 tab 10/14/19 05/07/20 metoprolol succinate 100 mg PO DAILY #60 tab 10/14/19 05/07/20 sennosides [Senokot] 1 tab PO BID PRN PRN #60 tab 10/14/19 05/07/20 diltiazem HCl 180 mg 180 mg PO HS #90 cap 10/31/19 05/07/20 capsule,extended release 24 hr lisinopril 5 mg tablet 2.5 mg PO HS #45 tab 11/07/19 05/07/20 rosuvastatin 20 mg tablet 20 mg PO QPM #90 tab 11/07/19 05/07/20 warfarin 5 mg tablet 2.5 - 5 mg PO DAILY #60 tab 11/23/19 05/07/20 furosemide 20 mg tablet 40 mg PO DAILY #180 tab-cap 12/25/19 05/07/20 acetaminophen 500 mg PO Q4H PRN PRN #0 cap 01/30/20 05/07/20 Previous Rx's Medication Instructions Recorded nitroglycerin 0.4 mg sublingual 0.4 mg SUBLINGUAL Q 5 MIN PRN #25 04/17/19 tablet tab-cap pantoprazole 40 mg tablet,delayed 40 mg PO DAILY #90 tab-cap 04/17/19 release pen needle, diabetic 32 gauge x #100 each 04/17/19 bisacodyl 10 mg HI DAILY PRN PRN #10 ea 10/14/19 docusate sodium [Colace] 100 mg PO BID #60 cap 10/14/19 ketoconazole 1 applic TOPICAL QPM #30 gm 10/14/19 magnesium oxide 400 mg PO DAILY #10 tab 10/14/19 metoprolol succinate 100 mg PO DAILY #60 tab 10/14/19 sennosides [Senokot] 1 tab PO BID PRN PRN #60 tab 10/14/19 diltiazem HCl 180 mg 180 mg PO HS #90 cap 10/31/19 capsule,extended release 24 hr lisinopril 5 mg tablet 2.5 mg PO HS #45 tab 11/07/19 rosuvastatin 20 mg tablet 20 mg PO QPM #90 tab 11/07/19 warfarin 5 mg tablet 2.5 - 5 mg PO DAILY #60 tab 11/23/19 furosemide 20 mg tablet 40 mg PO DAILY #180 tab-cap 12/25/19 acetaminophen 500 mg PO Q4H PRN PRN #0 cap 01/30/20 Allergies Allergy/AdvReac Type Severity Reaction Status Date / Time Tetanus Vaccines and Toxoid Allergy Intermediate Verified 05/07/20 09:59 diltiazem AdvReac Severe tired, Verified 05/07/20 09:59 hand pain doxycycline AdvReac Severe GI UPSET Verified 05/07/20 09:59 verapamil AdvReac Severe dizziness Verified 05/07/20 09:59 doxazosin mesylate AdvReac Intermediate muscle Verified 05/07/20 09:59 [From Sydnee] aches atenolol AdvReac Mild leg pain Verified 05/07/20 09:59 General GELA: 2 Review of Systems All systems reviewed & are unremarkable except as noted in HPI and below Constitutional Constitutional: Reports as per HPI, Denies chills and Denies fever(s) Eyes Eyes: Denies blurry vision ENT Ears, Nose, Mouth, and Throat: Denies dizziness, Denies sore throat and Denies throat swelling Cardiovascular Cardiovascular: Denies chest pain and Denies dyspnea Respiratory Respiratory: Denies cough and Denies dyspnea Gastrointestinal Gastrointestinal: Denies abdominal pain, Denies diarrhea and Denies vomiting Genitourinary Genitourinary: Denies hematuria and Denies dysuria Musculoskeletal Musculoskeletal: Denies back pain and Denies numbness Integumentary/Breasts Skin/Breast: Denies lesions and Denies rash Neurologic Neurologic: Denies dizziness, Denies localized weakness and Denies numbness Allergic/Immunologic Allergic/Immunologic: Denies throat swelling [facility] Medical History (Updated 05/07/20 @ 19:21 by Cristin Finley MD) Acute on chronic systolic heart failure Arthritis ASCVD (arteriosclerotic cardiovascular disease) (04/22/15) SC with out of hosp cardiac arrest LAD stent, LVEF 35% Atrial fibrillation (05/27/11) paroxysmal Oct 2009 Carpal tunnel syndrome on both sides s/p Left ECTR 01/30/2020 CHF (congestive heart failure) Chronic HFrEF (heart failure with reduced ejection fraction) Chronic low back pain Complementary medicine homeopathic primarily: DNI (do not intubate) DNR (do not resuscitate) Essential hypertension (01/04/13) echo 2007 LVH uncontrolled BP (neg w/u for pheo) Foot drop, left GERD (gastroesophageal reflux disease) Goals of care, counseling/discussion Hyperlipidemia Hypertensive retinopathy Hyponatremia Impaired left ventricular function (~05/2019) [facility] [place]; 35% Leg length discrepancy Lives alone Low back pain Lumbar stenosis Mild obstructive sleep apnea (11/17/15) COUNT INCLUDES THE [facility] NSTEMI (non-ST elevated myocardial infarction) (~05/2019) [facility] [place] Palliative care patient Pedal edema POLST (Physician Orders for Life-Sustaining Treatment) Refusal of blood transfusions as patient is Synagogue Renal insufficiency Type II diabetes mellitus with complication, uncontrolled (05/14/14) Surgical History (Updated 03/24/20 @ 12:33 by Antonia Carter) History of appendectomy History of carpal tunnel surgery of left wrist (01/30/20) History of right hip replacement Family History Brother Cancer Brother Cancer Leukemia Mother Asthma Sister Cancer Brother Dementia lives in SNF Son No problems noted. Son Paraplegic spinal paralysis motor vehicle crash Son No problems noted. Son No problems noted. Social History Smoking/Tobacco Use Status: Never Second Hand Exposure: No Smoking risk assessment performed?: Yes Alcohol Intake: never Drug use: Never Substance use type: does not use Caregiver/Support person: No Household members: none Housing: house Number of Children: 4 number of grandchildren: 5 Communication Needs: Corrective Lenses Education Level: high school Do you need help understanding health information?: Often current occupation: Retired Pets and animals: Yes Pets and animals: cat(s) and dog(s) Current gender identity: female What is your relationship status?: How often do you talk on the phone with friends or family?: three or more times per week How often do you get together with friends or relatives?: three or more times per week How often do you attend holiness or anabaptist services?: 4 or more times per year Panel score (0-1 are the most socially isolated patients): 2 What type of physical activity do you participate in: assisted ambulation Duration: 15-30 minutes/day Frequency: does not exercise Faviola/Spiritism: Synagogue Special faviola needs: Yes (no transfusion) Agree to transfusion: No Seatbelt use: always Drive intox or ride w/intox 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 Linda's family hires [employer] to help with housework mostly. Hip pain so much better since her surgery with Dr Stovall. Up and about easily within her house. No pain at all. Take a homeopathic arnica based medication for her left thigh pain. Happy overall. Life is so much better since my surgery. I can take care of myself!
[2020-05-07 10:12] LABS: Abs Immature Grans 0.02 10^3/uL (0.0-0.06); Absolute Basophil Count 0.06 10^3/uL (0.0-0.2); Absolute Lymphocyte Count 1.33 10^3/uL (1.2-3.4); Absolute Monocyte Count 0.58 10^3/uL (0.1-0.8); Absolute Neutrophil Count 8.15 10^3/uL (1.2-6.7); Basophils % 0.6; HCT 39.1 % (36.0-46.0); Immature Grans % 0.2; MCHC 33.2 % (32.0-36.0); MCV 90.3 fL (80-95); MPV 12.8 fL (8.0-11.0); Monocytes % 5.7; Neutrophils % 79.5; Nucleated RBC 0 %; Platelet Count 162 10^3/uL (130-400); RBC 4.33 10^6/uL (3.93-5.22); RDW 13.5 % (11.7-14.6); RDW-SD 44.7 fL; WBC 10.24 10^3/uL (4.4-10.8)
[2020-05-07 10:22] LABS: Bilirubin Negative (Negative); Blood Small (Negative); Clarity Clear (Clear); Glucose Negative (Negative); Ketones Negative (Negative); Leukocyte Esterase Small (Negative); Nitrite Negative (Negative); Specific Gravity 1.025 (1.005-1.025); Urobilinogen 0.2 EU/dL (Up TO 0.2)
[2020-05-07 10:22] LABS: INR 3.4 (0.9-1.1); PTT Activated 39.4 sec (21.0-27.5); Prothrombin Time 33.1 sec (9.3-11.0)
[2020-05-07 10:25] LABS: ALT 29 U/L (14-59); AST 22 U/L (15-37); Albumin 3.5 g/dL (3.4-5.0); Alkaline Phosphatase 88 U/L (46-116); Anion Gap 8.8 mmol/L (3-11); BUN 22 mg/dL (7-18); Bilirubin, Total 0.4 mg/dL (0.2-1.0); CO2 27.2 mmol/L (21.0-32.0); CREATININE 1.2 mg/dL (0.55-1.02); Calcium 8.9 mg/dL (8.5-10.1); Chloride 101 mmol/L (98-107); Glucose 148 mg/dL (74-106); Magnesium 2.1 mg/dL (1.8-2.4); Potassium 3.7 mmol/L (3.5-5.1); Sodium 137 mmol/L (136-145); Total Protein 7.7 g/dL (6.4-8.2)
[2020-05-07 10:26] LABS: Troponin I 0.14 ng/mL (<0.06)
--- NOTE | 2020-05-07 10:30 | DI.CT_ITS ---
EXAM: CT HEAD WO CLINICAL HISTORY: dizziness, hearing loss, r/o acute cva. TECHNIQUE: Imaging Protocol: Axial computed tomography images with coronal and sagittal reformatted images were created and reviewed COMPARISON: No exams were available for comparison FINDINGS: Ventricles and Extra axial spaces: Normal in size and morphology for the patient's age. No significan t atrophy. Hemorrhage: None. Cerebral parenchyma: Patchy areas of decreased attenuation in the white matter likely reflecting sequ kristyn of microvascular disease. No evidence of acute infarct. Midline shift: None. Brainstem/Cerebellum: Normal. Calvarium: Normal. Visualized Paranasal sinuses/Mastoids: Clear. Soft Tissues: Unremarkable. IMPRESSION: No acute intracranial process. RADIATION DOSE DELIVERED: 791.67mGy.cm Total DLP DATA REPOSITORY: All CT scans at this facility are submitted to the National Radiology Data Registry (NRDR) Dose Index Registry (DIR) with the [employer] (ACR). RADIATION OPTIMIZATION: All CT scans at this facility use at least one of these dose optimization te chniques: automated exposure control; mA and/or kV adjustment per patient size (includes targeted exa ms where dose is matched to clinical indication); or iterative reconstruction.
[2020-05-07 10:32] LABS: Bacteria Moderate HPF (Negative); C & S Indicated? Yes; Casts Negative LPF (Negative); Crystals Negative HPF (Negative); Epithelial Cells Rare HPF (Negative); Mucus Moderate (Negative); Other Cells Negative (Negative)
[2020-05-07] MEDS: Normal Saline 500 ML IV (11:15)
--- NOTE | 2020-05-07 11:42 | DI.RAD_ITS ---
EXAM: XR CHEST 2V PA LATERAL CLINICAL HISTORY: elevated trop, dizziness, r/o acute disease TECHNIQUE: 2D digital imaging was performed. COMPARISON: CR XR CHEST 2V PA LATERAL from 08/01/2019 FINDINGS: Cardiomegaly is again noted, unchanged. The aorta shows tortuosity and calcification. There is incr eased vascular prominence and mildly increased interstitial changes. No effusions or focal infiltrat es are seen. The findings could represent mild CHF. IMPRESSION: Cardiomegaly and question of mild CHF. DATA REPOSITORY: RADIATION DOSE DELIVERED:
--- NOTE | 2020-05-07 12:00 | RT.EKG_ITS ---
APPROVED REPORT Exam: Resting ECG Patient Location: E HR:105 bpm ECG Measurements Heart Rate 105 AXIS [place] [id number] P [id number] QRSd 135 QRS -26 QT 394 T 59 QTc 520 Conclusion Atrial fibrillation...? atrial activity Left bundle branch block...QRSd>120, broad/notched R I have reviewed and interpreted ECG and agree with software generated interpretation.
[2020-05-07] MEDS: cefTRIAXone 1 GM/50 ML BAG IVPB (12:04)
[2020-05-07 13:21] LABS: Troponin I 0.13 ng/mL (<0.06)
[2020-05-07] MEDS: Metoprolol 5 MG/5 ML VIAL IVP (15:54)
--- NOTE | 2020-05-07 19:10 | W.PM.HP.N ---
Date of service: 05/07/20 Time of Service: 19:10 Assessment and Plan Assessment and plan (1) Elevated troponin: Status: Acute Assessment and plan: In setting of rapid Afib, CHF, and a recently subtherapeutic INR I am concerned about the sudden onset of shortness of breath yesterday, which brings PE vs rapid Afib to the top of differential Dx. Troponin is flat and I doubt a true ACS. Obtain CTA of the chest to r/o PE. Obtain echo. Monitor on telemetry. Trend troponins. Control heart rate. Diurese. (2) Paroxysmal atrial fibrillation with RVR: Status: Acute Assessment and plan: The patient will get short-acting versions of her medications tonight and her home medications will be resumed tomorrow. Monitor on tele. prn IV lopressor ordered. R/o PE. Hold anticoagulation today as INR supratherapeutic. (3) Acute on chronic systolic CHF (congestive heart failure): Status: Acute Assessment and plan: EF 45-50% on latest echo, and she does have mild-moderate pulmonary hypertension with RVSP of 28.1mmHg. Control HR as rapid rate could be one of the drivers. STop IVF and initiate gentle diuresis, monitoring I/Os and daily weights. Repeat echo. (4) Dizziness: Status: Acute Assessment and plan: The patient describes more of an orthostatic type of dizziness rather than vertigo or dizziness associated with labirintitis. We will address rapid Afib and observe. (5) Hearing loss: Status: Acute Assessment and plan: It is unusual to have bilateral hearing loss from a CVA. There is not significant build-up of cerumen on my exam, but the tympanic membranes are bulging. I feel that in this 85 year old patient with rapid Afib, decongestants would be contraindicated. Will trial nasal spray and monitor. (6) ASCVD (arteriosclerotic cardiovascular disease): Status: Chronic Assessment and plan: Repeat EKG and troponin in am and monitor on tele. Doubt true ACS. (7) Discharge planning issues: Status: Acute Assessment and plan: DNR/DNI Palliative care patient - consider consult if staying beyond tomorrow. PT c/s once HR better. History of Present Illness History of Present Illness Chief Complaint: Dizziness Narrative: Ms Bautista is an 85 year old female with PMHx of CAD s/p NSTEMI, CHFrEF (EF 45-50% by echo in 09/2019), paroxysmal Afib, prior VTE, IDDM2, who presented to [facility] ED c/o dizziness and hearing loss this am, which had already improved by the time of her evaluation in the ED. The patient states that last night she had an episode of sudden shortness of breath that eventually passed. Then she woke up with bilateral hearing loss and dizziness. Dizziness is primarily worse when she changes positions from sitting to standing. She has felt this way before, usually when she is dehydrated. The hearing loss is already better in her left ear but not her right. She denies nasal congestion or cold symptoms, and states she has not been exposed to COVID-19. She did not get a chance to take her medications this morning. She had a HR in 120s in the ED with her usual Afib/flutter with an old LBBB on arrival. Her workup revealed a mildly elevated troponin of 0.14, down to 0.13 on recheck, felt to be due to demand ischemia of Afib/flutter with RVR. She required 5 mg of IV lopressor in the ED for rapid Afib. She was initiated on empiric ceftriaxone for a possible UTI, though the patient does not report symptoms of this. A hospitalist admission was requested. She did state that recently her coumadin dose had to be increased because her INR had been subtherapeutic. Review of Systems Narrative: The patient specifically denies chest pain, cough, cold symptoms, allergies, nausea All systems reviewed & are unremarkable except as noted in HPI and below [facility] Medical History (Updated 05/07/20 @ 20:02 by Cristin Finley MD) Acute on chronic systolic heart failure Arthritis ASCVD (arteriosclerotic cardiovascular disease) (04/22/15) VT with out of hosp cardiac arrest LAD stent, LVEF 35% Atrial fibrillation (05/27/11) paroxysmal Oct 2009 Carpal tunnel syndrome on both sides s/p Left ECTR 01/30/2020 CHF (congestive heart failure) Chronic HFrEF (heart failure with reduced ejection fraction) Chronic low back pain Complementary medicine homeopathic primarily: DNI (do not intubate) DNR (do not resuscitate) Essential hypertension (01/04/13) echo 2007 LV[facility] uncontrolled BP (neg w/u for pheo) Foot drop, left GERD (gastroesophageal reflux disease) Goals of care, counseling/discussion Hyperlipidemia Hypertensive retinopathy Hyponatremia Impaired left ventricular function (~05/2019) [facility] [place] 35% Leg length discrepancy Lives alone Low back pain Lumbar stenosis Mild obstructive sleep apnea (11/17/15) [facility] NSTEMI (non-ST elevated myocardial infarction) (~05/2019) [facility] [place] Palliative care patient Pedal edema POLST (Physician Orders for Life-Sustaining Treatment) Refusal of blood transfusions as patient is Alevism Renal insufficiency Type II diabetes mellitus with complication, uncontrolled (05/14/14) Surgical History (Updated 03/24/20 @ 12:33 by Antonia Carter) History of appendectomy History of carpal tunnel surgery of left wrist (01/30/20) History of right hip replacement Family History Brother Cancer Brother Cancer Leukemia Mother Asthma Sister Cancer Brother Dementia lives in SNF Son No problems noted. Son Paraplegic spinal paralysis motor vehicle crash Son No problems noted. Son No problems noted. Social History Smoking/Tobacco Use Status: Never Second Hand Exposure: No Smoking risk assessment performed?: Yes Alcohol Intake: never Drug use: Never Substance use type: does not use Caregiver/Support person: No Household members: none Housing: house Number of Children: 4 number of grandchildren: 5 Communication Needs: Corrective Lenses Education Level: high school Do you need help understanding health information?: Often current occupation: Retired Pets and animals: Yes Pets and animals: cat(s) and dog(s) Current gender identity: female What is your relationship status?: How often do you talk on the phone with friends or family?: three or more times per week How often do you get together with friends or relatives?: three or more times per week How often do you attend islam or buddhism services?: 4 or more times per year Panel score (0-1 are the most socially isolated patients): 2 What type of physical activity do you participate in: assisted ambulation Duration: 15-30 minutes/day Frequency: does not exercise Faviola/Samaritan: Alevism Special faviola needs: Yes (no transfusion) Agree to transfusion: No Seatbelt use: always Drive intox or ride w/intox 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 Linda's family hires [employer] to help with housework mostly. Hip pain so much better since her surgery with Dr Stovall. Up and about easily within her house. No pain at all. Take a homeopathic arnica based medication for her left thigh pain. Happy overall. Life is so much better since my surgery. I can take care of myself! Meds Home Medications and Allergies Home Medications Medication Instructions Recorded Confirmed Type ascorbic acid (vitamin C) 2 tab PO DAILY PRN 07/15/12 05/07/20 History multivitamin [Daily Multi-Vitamin] 1 tab PO DAILY 07/15/12 05/07/20 History chromium picolinate 1,000 mcg PO daily prn 08/13/14 05/07/20 History nitroglycerin 0.4 mg sublingual 0.4 mg SUBLINGUAL Q 5 MIN PRN #25 04/17/19 05/07/20 Rx tablet tab-cap pantoprazole 40 mg tablet,delayed 40 mg PO DAILY #90 tab-cap 04/17/19 05/07/20 Rx release pen needle, diabetic 32 gauge x #100 each 04/17/19 05/07/20 Rx aspirin 81 mg tablet,delayed 81 mg PO DAILY 06/20/19 05/07/20 History release Tresiba FlexTouch U-100 18 unit SC QHS 10/01/19 05/07/20 History bisacodyl 10 mg MN DAILY PRN PRN #10 ea 10/14/19 05/07/20 Rx docusate sodium [Colace] 100 mg PO BID #60 cap 10/14/19 05/07/20 Rx ketoconazole 1 applic TOPICAL QPM #30 gm 10/14/19 05/07/20 Rx magnesium oxide 400 mg PO DAILY #10 tab 10/14/19 05/07/20 Rx metoprolol succinate 100 mg PO DAILY #60 tab 10/14/19 05/07/20 Rx sennosides [Senokot] 1 tab PO BID PRN PRN #60 tab 10/14/19 05/07/20 Rx diltiazem HCl 180 mg 180 mg PO HS #90 cap 10/31/19 05/07/20 Rx capsule,extended release 24 hr lisinopril 5 mg tablet 2.5 mg PO HS #45 tab 11/07/19 05/07/20 Rx rosuvastatin 20 mg tablet 20 mg PO QPM #90 tab 11/07/19 05/07/20 Rx warfarin 5 mg tablet 2.5 - 5 mg PO DAILY #60 tab 11/23/19 05/07/20 Rx furosemide 20 mg tablet 40 mg PO DAILY #180 tab-cap 12/25/19 05/07/20 Rx acetaminophen 500 mg PO Q4H PRN PRN #0 cap 01/30/20 05/07/20 Rx Allergies Allergy/AdvReac Type Severity Reaction Status Date / Time Tetanus Vaccines and Toxoid Allergy Intermediate Verified 05/07/20 09:59 diltiazem AdvReac Severe tired, Verified 05/07/20 09:59 hand pain doxycycline AdvReac Severe GI UPSET Verified 05/07/20 09:59 verapamil AdvReac Severe dizziness Verified 05/07/20 09:59 doxazosin mesylate AdvReac Intermediate muscle Verified 05/07/20 09:59 [From Cardura] aches atenolol AdvReac Mild leg pain Verified 05/07/20 09:59 Exam Narrative Exam Narrative: General: Very pleasant elderly female, A&ox3, sitting comfortably in a chair, wearing 2 L of O2 (O2 sat 100%) Neurological: A&Ox3, no focal deficits, hears me when I speak in my normal voice Psychiatric: Appropriate speech pattern/content Skin: Ecchymosis L inner thigh; otherwise, visible skin intact HEENT: Atraumatic, normocephalice, EOMI, MMM, clear oropharynx, no submandibular or cervical lypmhadenopathy, no goiter or JVD; otologic exam: does have bulging tympanic membranes bilaterally without erythema Cardiovascular: Irregularlly irregular rhythm, + MONICA Lungs: Crackles at B bases Gastrointestinal: soft, nontender, nondistended Genitourinary: deferred Extremities: 3+ bilateral lower extremity edema, symmetirc Results Imaging Additional studies: CXR: Cardiomegaly and question of mild CHF. CT head: No acute intracranial process. EKG #1: Afib, HR 104, LBBB, no acute ischemia EKG #2: Afib, HR 105, LBBB, unchanged Labs Result diagrams: 05/07/20 10:00 05/07/20 10:00 Labs: Laboratory Results - last 24 hr 05/07/20 05/07/20 05/07/20 10:00 10:00 10:00 WBC 10.24 RBC 4.33 Hgb 13.0 Hct 39.1 MCV 90.3 MCH 30.0 MCHC 33.2 RDW 13.5 Plt Count 162 MPV 12.8 H Immature Gran % 0.2 Neutrophils % 79.5 Lymphocytes % 13.0 Monocytes % 5.7 Eosinophils % 1.0 Basophils % 0.6 Nucleated RBC % 0 Absolute Neutrophils 8.15 H Absolute Lymphocytes 1.33 Absolute Monocytes 0.58 Absolute Eosinophils 0.10 Absolute Basophils 0.06 PT 33.1 H INR 3.4 H APTT 39.4 H Sodium 137 Potassium 3.7 Chloride 101 Carbon Dioxide 27.2 Anion Gap 8.8 BUN 22 H Creatinine 1.2 H Estimated GFR/1.73 m2 42.80 Glucose 148 H Calcium 8.9 Magnesium 2.1 Total Bilirubin 0.4 AST 22 ALT 29 Alkaline Phosphatase 88 Troponin I 0.14 H* Total Protein 7.7 Albumin 3.5 Urine Color Urine Clarity Urine pH Ur Specific [place] Urine Protein Urine Ketones Urine Blood Urine Nitrite Urine Bilirubin Urine Urobilinogen Ur Leukocyte Esterase Urine RBC Urine WBC Ur Epithelial Cells Urine Crystals Urine Bacteria Urine Casts Urine Mucus Urine Other Ur Culture Indicated? Urine Glucose 05/07/20 05/07/20 10:14 12:55 WBC RBC Hgb Hct MCV MCH MCHC RDW Plt Count MPV Immature Gran % Neutrophils % Lymphocytes % Monocytes % Eosinophils % Basophils % Nucleated RBC % Absolute Neutrophils Absolute Lymphocytes Absolute Monocytes Absolute Eosinophils Absolute Basophils PT INR APTT Sodium Potassium Chloride Carbon Dioxide Anion Gap BUN Creatinine Estimated GFR/1.73 m2 Glucose Calcium Magnesium Total Bilirubin AST ALT Alkaline Phosphatase Troponin I 0.13 H* Total Protein Albumin Urine Color Yellow Urine Clarity Clear Urine pH 7.0 Ur Specific [place] 1.025 Urine Protein >=300 H Urine Ketones Negative Urine Blood Small H Urine Nitrite Negative Urine Bilirubin Negative Urine Urobilinogen 0.2 Ur Leukocyte Esterase Small H Urine RBC 3-5 H Urine WBC 5-10 Ur Epithelial Cells Rare Urine Crystals Negative Urine Bacteria Moderate Urine Casts Negative Urine Mucus Moderate Urine Other Negative Ur Culture Indicated? Yes Urine Glucose Negative Last Vital Signs Temp 36.8 C 05/07/20 17:48 Pulse 97 H 05/07/20 17:48 Resp 31 H 05/07/20 17:48 BP 155/88 H 05/07/20 17:48 Pulse Ox 95 05/07/20 17:48 COVID-19 Screening Have you, or household traveled for leisure in last 14 days?: No Had IN PERSON contact w/suspected or confirmed C-19 person: No
[2020-05-07 19:19] LABS: Troponin I 0.15 ng/mL (<0.06)
[2020-05-07] MEDS: dilTIAZem 60 MG TAB PO (20:15)
[2020-05-07] MEDS: Omnipaque 350 MG/ML 100 ML BTL IJ (20:27)
[2020-05-07] MEDS: Normal Saline - Diluent 50 ML VIAL IV (20:28)
[2020-05-07] MEDS: Normal Saline Flush 10 ML SYR IVP ×2 (20:28→20:43)
--- NOTE | 2020-05-07 20:29 | DI.CT_ITS ---
EXAM: CT CHEST PE CTA CLINICAL HISTORY: dizziness, shortness of breath, concern for a PE. TECHNIQUE: Imaging Protocol: Axial CT angiography was performed with multi-slice acquisition and mu lti-planar and/or 3D reconstructions. CONTRAST MATERIAL: Intravenous: Omnipaque 350 Contrast volume: 73 cc COMPARISON: CT CHEST WITHOUT CONTRAST from 09/24/2017 CT CHEST WITHOUT CONTRAST from 09/24/2017 CR XR CHEST 2V PA LATERAL from 05/07/2020 CR XR CHEST 2V PA LATERAL from 05/07/2020 FINDINGS: The exam is limited by respiratory motion. Pulmonary Arteries: No evidence of filling defect to suggest pulmonary emboli. Tracheobronchial tree: Patent where visualized. Mediastinum and Angelita: No dominant adenopathy or fluid collection. Pulmonary parenchyma: Limited evaluation due to respiratory motion. Interlobular septal thickening. No focal infiltrate. Pleura: Small bilateral pleural effusions. Heart: There is left ventricular and left atrial enlargement. There is mitral annular calcification as well as coronary artery calcifications. Aorta: Thoracic aorta non-dilated. Mild calcification. Upper abdomen: Unremarkable. Bones: Degenerative disc changes greatest in the midthoracic spine. IMPRESSION: No evidence of pulmonary embolism. Small bilateral pleural effusions, cardiomegaly and interlobular septal thickening, consistent with CHF. RADIATION DOSE DELIVERED: 415.34mGy.cm Total DLP DATA REPOSITORY: All CT scans at this facility are submitted to the National Radiology Data Registry (NRDR) Dose Index Registry (DIR) with the [employer] (ACR). RADIATION OPTIMIZATION: All CT scans at this facility use at least one of these dose optimization te chniques: automated exposure control; mA and/or kV adjustment per patient size (includes targeted exa ms where dose is matched to clinical indication); or iterative reconstruction.
[2020-05-07] MEDS: Docusate Sodium 100 MG CAP PO (20:42)
[2020-05-07] MEDS: Furosemide 20 MG/2 ML VIAL IVP (20:43)
--- NOTE | 2020-05-07 20:48 | DI.VRAD_ITS ---
PROCEDURE INFORMATION: Exam: CT Angiography Chest With Contrast Exam date and time: 05/07/2020 7:45 PM Age: 85 years old Clinical indication: Patient HX: Dizziness, shortness of breath TECHNIQUE: Imaging protocol: Computed tomographic angiography of the chest with contrast. 3D rendering (Not supervised by radiologist): MIP and/or 3D reconstructed images were created by the technologist. Radiation optimization: All CT scans at this facility use at least one of these dose optimization techniques: automated exposure control; mA and/or kV adjustment per patient size (includes targeted exams where dose is matched to clinical indication); or iterative reconstruction. Contrast material: [id number]; Contrast volume: 73 ml; Contrast route: INTRAVENOUS (IV); COMPARISON: CT CHEST WITHOUT CONTRAST 09/24/2017 2:59 PM FINDINGS: Pulmonary arteries: The caliber of the main pulmonary artery is within normal limits. No saddle embolus. No filling defect to suggest pulmonary embolism noting motion artifact somewhat limits evaluation of the segmental and subsegmental vessels, especially in the lower lobes. Aorta: Unremarkable. No aortic aneurysm. No aortic dissection. Lungs: The central airways are patent. Mild diffuse patchy ground-glass opacities with interlobular septal thickening, most prominent in the lower lobes, nonspecific, most commonly seen in the setting of CHF with pulmonary edema, early atypical pneumonia is not excluded. Motion artifact somewhat limits evaluation. Pleural spaces: Small bilateral pleural effusions. Heart: Mild cardiac enlargement without pericardial effusion. Coronary artery calcifications. Mild reflux into the hepatic veins suggest increased right heart pressures. Lymph nodes: Unremarkable. No enlarged lymph nodes. Bones/joints: Multilevel degenerative changes of the spine. No acute fracture. Soft tissues: Unremarkable. IMPRESSION: 1. Diffuse patchy ground-glass opacities with interlobular septal thickening, most prominent in the lower lobes. The findings are nonspecific but most commonly are seen in the setting of CHF with pulmonary edema, early atypical pneumonia is not excluded. 2. Small bilateral pleural effusions. 3. No evidence of pulmonary embolism to the level of the lobar vessels. Evaluation of the smaller branch vessels is somewhat limited due to motion artifact and small pulmonary emboli cannot be excluded in these vessels. Dictated and Authenticated by: Viviane Fernandez MD. Ordering:FLETCHER Amaral MD
[2020-05-07] MEDS: Rosuvastatin 10 MG TAB 20 MG PO (20:53)
[2020-05-07] MEDS: Fluticasone NASAL SPRAY 16 GM BTL NS (20:54)
[2020-05-07] MEDS: Metoprolol 25 MG TAB PO (20:58)
[2020-05-07 21:02] LABS: NT-proBNP 3697 pg/mL (<300)
[2020-05-07] MEDS: Insulin Glargine 300 UNITS/3 ML PEN 14 UNITS SC (22:02)
[2020-05-07] MEDS: Insulin Aspart 300 UNITS/3 ML PEN SC (22:03)
[2020-05-07] MEDS: dilTIAZem CD 180 MG CAPCR PO (22:04)
[2020-05-08] VITALS (8 sets, daily range): BP systolic 120–142; BP diastolic 71–84; PULSE 68–96; RESP 17–18; TEMP 36.3–37.2; O2SAT 97–100
[2020-05-08 01:42] LABS: COVID-19 RT-PCR UVMMC Result Negative (Negative)
[2020-05-08] MEDS: Metoprolol 25 MG TAB PO (01:51)
[2020-05-08 07:15] LABS: INR 2.8 (0.9-1.1); Prothrombin Time 27.3 sec (9.3-11.0)
[2020-05-08 07:21] LABS: Anion Gap 8.5 mmol/L (3-11); BUN 21 mg/dL (7-18); CO2 27.5 mmol/L (21.0-32.0); CREATININE 1.3 mg/dL (0.55-1.02); Calcium 8.8 mg/dL (8.5-10.1); Chloride 103 mmol/L (98-107); Estimated GFR 39.02 (mL/min/1.73m2); Glucose 67 mg/dL (74-106); Potassium 3.5 mmol/L (3.5-5.1); Sodium 139 mmol/L (136-145)
[2020-05-08 07:23] LABS: Troponin I 0.15 ng/mL (<0.06)
--- NOTE | 2020-05-08 08:00 | DI.US_ITS ---
APPROVED REPORT EXAM: Comprehensive 2D, Doppler, and color-flow Echocardiogram Patient Location: Out-Patient Room/Bed: 228 Figure Refinisher And Repairer: Lee Ann Sadler RDCS (AE) Indications: CHF Other Information Study Quality: Adequate Conclusion Left Ventricle : The left ventricle is normal size. Left ventricular systolic function is mildly decr eased. There is normal left ventricular wall thickness. Regional wall motion abnormalities are noted. LVEF is 40-45%. Right Ventricle : The right ventricle is normal size. The right ventricular systolic function is norm al. The RVSP is 31.7 mmHg. Atria : The left atrium size is normal. The right atrium size is normal. Mitral Valve : Moderate mitral annular calcification. Moderate mitral regurgitation. No evidence of m itral valve stenosis. Great Vessels : The aortic root is normal in size. The ascending aorta is mildly dilated. IVC is norm al in size and collapses >50% with inspiration. Compared to study from 10/02/2019, patient's overall LV function remains about the same as well as the existing anterior/apical wall motion abnormalities. Wall motion Left Ventricle The left ventricle is normal size. Left ventricular systolic function is mildly decreased. There is n ormal left ventricular wall thickness. Regional wall motion abnormalities are noted. There is no vent ricular septal defect visualized. LVEF is 40-45%. Right Ventricle The right ventricle is normal size. The right ventricular systolic function is normal. The RVSP is 31 .7 mmHg. Atria The left atrium size is normal. The right atrium size is normal. The interatrial septum is intact wit h no evidence for an atrial septal defect. Aortic Valve The aortic valve is normal in structure. Aortic valve is trileaflet. There is no aortic valvular sten osis. Trace aortic regurgitation. Mitral Valve Moderate mitral annular calcification. No evidence of mitral valve stenosis. Moderate mitral regurgit ation. Tricuspid Valve The tricuspid valve is normal in structure. There is no tricuspid valve stenosis. Mild tricuspid regu rgitation. Pulmonic Valve The pulmonary valve is normal in structure. There is no pulmonic valvular stenosis. There is no pulmo alfonso valvular regurgitation. Great Vessels The aortic root is normal in size. The ascending aorta is mildly dilated. IVC is normal in size and c ollapses >50% with inspiration. Pericardium Trace pericardial effusion. 2D Dimensions IVSD d PLAX 0.91 cm F: 0.6-1.0 LV Vol A2C d MOD 91.3 mL LVPW d PLAX 0.93 cm F: 0.6 - 1.0 LV Vol A4C d MOD 85.9 mL LVID d PLAX 4.89 cm F: 3.8 - 5.2 LA vol/ BSA A2C s A-L 47.2 mL/m2 LVDs 3.55 cm F: 2.2 - 3.5 LA vol/ BSA A4C s A-L 27.3 mL/m2 Ao Root d 2.99 cm F: 2.7 - 3.3 LA Vol/ BSA Biplane s A-L 38.3 mL/m2 RA Area A4C 19.93 cm2 LA Area A4C s MOD 17.17 cm2 RA Vol/ BSA A4C s A-L 35.6 mL/m2 LA Area A2C s MOD 24.09 cm2 Ao Asc Diam d 3.26 cm F: 2.3 - 3.1 LV EF A4C MOD 46.1 % LV EF Teichholz 52.6 % LV EF A2C MOD 44.2 % LVEF (Castillo's) 44.98 % F: 54 - 74 LV EF Biplane MOD 45.0 % LV Volume 69.49 mL F: 46 - 106 SV 40.13 mL LV Volume Index 38.82 mL/m2 F: 29 - 61 SV Index 22.38 mL/m2 LV Vol Biplane MOD 89.2 mL FS 27.05 % M-Mode TAPSE 1.49 cm (M/F) >1.7 LV Diastology MV E Vmax 1.00 (0.4-1.3 m/s) Aortic Valve LVOT Area 2.97 cm2 AoV Area Vmax 2.25 cm2 LVOT Vmax 0.75 m/s AoV Area/ BSA (Vmax) 1.26 cm2/m2 LVOT Mean Kelvin. 0.51 m/s HONEY Mean Kelvin. 2.15 cm2 LVOT Peak Grad 2.2 mmHg HONEY Mean Kelvin. Index 1.20 cm2/m2 LVOT Mean Grad 1.2 mmHg AR DT 3158 msec LVOT VTI 0.136 m AR PHT 916 msec LVOT Diam s 1.90 cm AoV Vmax 0.99 m/s Velocity Ratio 0.75 AoV Mean Kelvin. 0.71 m/s AoV Peak Grad 3.9 mmHg LVOT SV 40.26 mL AoV Mean Grad 2.2 mmHg AoV VTI 0.228 m AoV Area VTI 1.77 cm2 AoV Area/ BSA (VTI) 0.98 cm/m2 Mitral Valve MV DT 176 (160-240 msec) MR PISA Radius 0.64 cm MV PHT 51 msec MR Aliasing Velocity 0.35 m/s MV Area PHT 4.30 cm2 MR PISA 2.55 cm2 MV VTI 0.231 m MV Area VTI 1.74 (4.0-6.0 cm2) Pulmonary Valve PV Vmax 0.66 (0.5-1.5 m/s) RVOT Peak Gr. 0.94 mmHg PV Peak Grad 1.7 mmHg RVOT Mean Gr. 0.45 mmHg PV Mean Grad 1.0 mmHg RVOT VTI 0.092 m PV VTI 0.119 m RVOT Vmax 0.48 m/s Tricuspid Valve TR Peak Grad 28.7 mmHg TR Vmax 2.68 m/s RA Pressure 3.00 mmHg RVSP (TR) 31.7 mmHg
--- NOTE | 2020-05-08 08:00 | DI.US_ITS ---
EXAM: US EXTREMITY VENOUS BI CLINICAL HISTORY: BLE edema. TECHNIQUE: Bilateral lower extremity venous ultrasound performed using grayscale, color-flow, and sp ectral Doppler analysis. COMPARISON: No exams were available for comparison FINDINGS: The bilateral common femoral, femoral and popliteal veins demonstrate normal compressibility, augment ation, and color Doppler. The posterior tibial veins are patent. No superficial venous thrombosis or Mcbride's cyst is seen in either leg. IMPRESSION: Right: Negative for DVT Left: Negative for DVT DATA REPOSITORY:
[2020-05-08] MEDS: Ascorbic Acid 500 MG TAB 1000 MG PO (09:35)
[2020-05-08] MEDS: Fluticasone NASAL SPRAY 16 GM BTL NS (09:35)
[2020-05-08] MEDS: Metoprolol CR 50 MG TABCR 100 MG PO (09:36)
[2020-05-08] MEDS: Magnesium Oxide 400 MG TAB PO (09:36)
[2020-05-08] MEDS: Pantoprazole 40 MG TABCR PO (09:36)
[2020-05-08] MEDS: Multivitamin TAB 1 TAB PO (09:36)
[2020-05-08] MEDS: Docusate Sodium 100 MG CAP PO ×2 (09:36→20:26)
[2020-05-08] MEDS: Aspirin E.C. 81 MG TABEC PO (09:36)
[2020-05-08] MEDS: Furosemide 20 MG/2 ML VIAL IVP (09:46)
[2020-05-08] MEDS: Normal Saline Flush 10 ML SYR IVP ×4 (09:46→21:03)
--- NOTE | 2020-05-08 10:30 | RT.EKG_ITS ---
APPROVED REPORT Exam: Resting ECG Patient Location: I HR:78 bpm ECG Measurements Heart Rate 78 AXIS VT [id number] P [id number] QRSd 141 QRS -37 QT 414 T 152 QTc 482 Conclusion Atrial flutter...A-rate 283 Left bundle branch block...QRSd>120, broad/notched R
--- NOTE | 2020-05-08 11:05 | INITIAL_ITS ---
- If Service Date Differs Date of service: 05/08/20 Time of Service: 11:05 Care Management Initial Assess REASON FOR HOSPITALIZATION:: Elevated troponin PAST MEDICAL HISTORY/PAST SURGICAL HISTORY:: Medical History (Updated 05/07/20 @ 20:02 by Cristin Finley MD). Acute on chronic systolic heart failure. Arthritis. ASCVD (arteriosclerotic cardiovascular disease) (04/22/15). [place] with out of hosp cardiac arrest. LAD stent, LVEF 35%. Atrial fibrillation (05/27/11). paroxysmal Oct 2009. Carpal tunnel syndrome on both sides. s/p Left ECTR 01/30/2020. CHF (congestive heart failure). Chronic HFrEF (heart failure with reduced ejection fraction). Chronic low back pain. Complementary medicine. homeopathic primarily: DNI (do not intubate). DNR (do not resuscitate). Essential hypertension (01/04/13). echo 2007 [facility]. uncontrolled BP (neg w/u for pheo). Foot drop, left. GERD (gastroesophageal reflux disease). Goals of care, counseling/discussion. Hyperlipidemia. Hypertensive retinopathy. Hyponatremia. Impaired left ventricular function (~05/2019). [facility] [place] Leg length discrepancy. Lives alone. Low back pain. Lumbar stenosis. Mild obstructive sleep apnea (11/17/15). [facility]. NSTEMI (non-ST elevated myocardial infarction) (~05/2019). [facility] [place]. Palliative care patient. Pedal edema. POLST (Physician Orders for Life-Sustaining Treatment). Refusal of blood transfusions as patient is Sabianism. Renal insufficiency. T ype II diabetes mellitus with complication, uncontrolled (05/14/14). Surgical History (Updated 03/24/20 @ 12:33 by Antonia Carter). History of appendectomy. History of carpal tunnel surgery of left wrist (01/30/20). History of right hip replacement PREVIOUS FUNCTIONAL STATUS/SOCIAL/FAMILY SUPPORTS:: Linda lives alone in her home in [place], [place]. ADVANCE DIRECTIVES:: On file. Caesar GILES Has patient been provided with info about the portal/API?: Yes Did the patient sign up for the portal?: No CODE STATUS:: DNR/DNI INSURANCE COVERAGE / FINANCIAL ISSUES:: Medicare. [facility] PRIMARY CARE PHYSICIAN:: Rad Yeh POTENTIAL DISCHARGE NEEDS:: Follow up with PCP and plan of care PATIENT/FAMILY EDUCATION NEEDS:: Discharge plan, limitations, follow up plan, Ask Me Three
[2020-05-08] MEDS: Insulin Aspart 300 UNITS/3 ML PEN SC ×3 (12:08→21:02)
--- NOTE | 2020-05-08 14:16 | RESPIRATORY ---
Discussed with Pt about nocturnal oxygen. Pt states that she does not have home nocturnal oxygen, but has sleep apnea. Pt stated that she used to have a sleep machine, but that there was a moment that she needed to remove the mask quickly and that she was unable too. Pt also stated that it was difficult keeping the mask clean and so no longer has device. Pt stated that oxygen helps her sleep and that when she is admitted to another facility that, that facility automatically places oxygen on her, but was never qualified for nocturnal oxygen as her oxygen was 97% at night on room air.
[2020-05-08] MEDS: Furosemide 40 MG/4 ML VIAL IVP (15:49)
--- NOTE | 2020-05-08 18:15 | PDOC.CMIN ---
- If Service Date Differs Date of service: 05/08/20 Time of Service: 18:15 Care Management Initial Assess REASON FOR HOSPITALIZATION:: Elevated troponin, dizziness, and afib. PAST MEDICAL HISTORY/PAST SURGICAL HISTORY:: Medical History: Acute on chronic systolic heart failure, Arthritis,. ASCVD (arteriosclerotic cardiovascular disease) (04/22/15) - [place] with out of hosp cardiac arrest - LAD stent, LVEF 35%, Atrial fibrillation (05/27/11) - paroxysmal Oct 2009, Carpal tunnel syndrome on both sides - s/p Left ECTR 01/30/2020, CHF (congestive heart failure), Chronic HFrEF (heart failure with reduced ejection fraction), Chronic low back pain, Complementary medicine - homeopathic primarily, DNI (do not intubate),. DNR (do not resuscitate), Essential hypertension (01/04/13) - echo 2007, LVH - uncontrolled BP (neg w/u for pheo), Foot drop, left, GERD (gastroesophageal reflux disease), Goals of care, counseling/discussion,. Hyperlipidemia, Hypertensive retinopathy, Hyponatremia, Impaired left ventricular function (~05/2019) - [facility] [place]; 35%, Leg length discrepancy,. Lives alone, Low back pain, Lumbar stenosis, Mild obstructive sleep apnea (11/17/15) - [facility], NSTEMI (non-ST elevated myocardial infarction) (~05/2019) - [facility] [place], Palliative care patient, Pedal edema, POLST (Physician Orders for Life-Sustaining Treatment), Refusal of blood transfusions as patient is Sabianist, Renal insufficiency, and. Type II diabetes mellitus with complication, uncontrolled (05/14/14). Surgical History: History of appendectomy, History of carpal tunnel surgery of left wrist (01/30/20), and History of right hip replacement. PREVIOUS FUNCTIONAL STATUS/SOCIAL/FAMILY SUPPORTS:: Linda is an 85 year old female who lives alone with her cat in [place], [place]. She shares she has lots of family support. She has three adult sons who live locally and a fourth son who resides out of state in [place]. She also has one sister and two brothers who live in the area. She additionally is a Sabianist and she attends services twice a week, which are currently being held via [employer]. Linda shares she is independent with her ADLs at baseline. She cooks for herself and does her laundry but she no longer drives. She enjoys watching television, reading, playing solitaire on her IPad, and talking to friends and family on the telephone. CURRENT FUNCTIONAL STATUS:: Linda is sitting in a chair talking to her son, Robert, when CM comes to meet with her. She is pleasant and talkative. She states she is content living alone. She shares she formerly had Home Health RN and PT services but no longer does. She expresses a desire to have Home Health again if she qualifies for the assistance. ADVANCE DIRECTIVES:: [employer] on file; son Robert Bautista is Health Care Agent. Has patient been provided with info about the portal/API?: No Did the patient sign up for the portal?: No CODE STATUS:: DNR/DNI INSURANCE COVERAGE / FINANCIAL ISSUES:: [facility] and Medicare. CURRENT HOME/COMMUNITY SERVICES/EQUIPMENT:: Linda has a privately paid research computing specialist who comes to her home twice a week (Tuesdays and ), takes her grocery shopping, and drives her to doctor's appointments. Linda owns a walker with a seat, which she uses to ambulate at home. She also has a shower seat, grab bars in the bathroom, and a life line alert. PRIMARY CARE PHYSICIAN:: Rad Yeh MD. POTENTIAL DISCHARGE NEEDS:: Follow up appointment with PCP and follow up plan of care. PATIENT/FAMILY EDUCATION NEEDS:: Discharge instructions, limitations, follow up plan including Ask Me Three and self management. ANTICIPATED BARRIERS TO DISCHARGE:: No anticipated barriers at this time. TRANSPORTATION:: Via private vehicle with family. PLAN:: Anticipate Linda will be discharged home when medically cleared by provider with new Home Health services, if appropriate. She will follow up with her PCP and discharge plan of care as directed. She will be driven home by her son Robert via private vehicle when ready. CM will continue to support patient and assess for discharge planning needs.
--- NOTE | 2020-05-08 20:03 | W.PM.PROGNOT ---
Date of Service Date of service: 05/08/20 Time of Service: 20:11 Assessment and Plan Assessment and plan (1) Acute on chronic systolic CHF (congestive heart failure): Status: Acute Assessment and plan: Improvig with IV lasix. PE ruled out. Continue IV lasix. This does not seem to be making her hearing worse. EF 45-50% on latest echo, and she does have mild-moderate pulmonary hypertension with RVSP of 28.1mmHg. Rate is now controlled. Continue monitoring I/os, daily weights. Likely switching to PO lasix tomorrow. (2) Hearing loss: Status: Acute Assessment and plan: It is unusual to have bilateral hearing loss from a CVA. Given temporal correlation with vertigo, I think this represents Meniere's disease. Will discuss with ENT.Continue nasal spray. (3) Paroxysmal atrial fibrillation with RVR: Status: Acute Assessment and plan: Rate now controlled. Continue monitoring on tele. (4) Elevated troponin: Status: Acute Assessment and plan: In setting of rapid Afib, CHF exacerbation. Troponins have been flat - this is not ACS. No further workup. (5) Dizziness: Status: Acute Assessment and plan: Today's description of patient's dizziness is different from what she said yesterday. I suspect vertigo/Meniere's disease. Will discuss with ENT. (6) ASCVD (arteriosclerotic cardiovascular disease): Status: Chronic Assessment and plan: as above (7) Discharge planning issues: Status: Acute Assessment and plan: DNR/DNI Consult palliative care and PT. Possible discharge home tomorrow. Subjective Subjective Interval history since last seen: Ms Bautista states she is feeling better. She denies dizziness today, chest pain, states her breathing is much better (she is no longer on oxygen), nausea. She states that now that she thinks about it, she was a little nauseated when she was dizzy and states that the two resolved together. The hearing in her left ear has come back; the right ear is a little bit better but not a lot. She cannot use it to talk on the phone. She has never been diagnosed with vertigo before, but she has had these symptoms in the past, just not the hearing loss, and her hearing loss was sudden. Denies tinnitis. Exam Narrative Exam Narrative: General: Very pleasant elderly female, A&ox3, sitting in a chair, looks better than yesterday, on room air. HEENT: EOMI, MMM Cardiovascular: Irregularlly irregular rhythm, + MONICA, rate is controlled Lungs: Crackles at B bases - improved Gastrointestinal: soft, nontender, nondistended Extremities: 3+ bilateral lower extremity edema, symmetirc, slight wrinkling noted today Objective Last Vital Signs Temp 36.7 C 05/08/20 19:43 Pulse 96 H 05/08/20 19:43 Resp 18 05/08/20 19:43 BP 122/84 05/08/20 19:43 Pulse Ox 97 05/08/20 19:43 Laboratory Results - last 24 hr 05/07/20 05/07/20 05/08/20 14:50 18:18 06:32 PT INR Sodium 139 Potassium 3.5 Chloride 103 Carbon Dioxide 27.5 Anion Gap 8.5 BUN 21 H Creatinine 1.3 H Estimated GFR/1.73 m2 39.02 Glucose 67 L D Calcium 8.8 Troponin I 0.15 H* NT-Pro-B Natriuret Pep 3697 H SARS-CoV-2 (PCR) Negative Nasopharyn COVID-19 PCR Not Applicable Ref Test Perform Site [facility] 05/08/20 06:32 PT 27.3 H INR 2.8 H D Sodium Potassium Chloride Carbon Dioxide Anion Gap BUN Creatinine Estimated GFR/1.73 m2 Glucose Calcium Troponin I NT-Pro-B Natriuret Pep SARS-CoV-2 (PCR) Nasopharyn COVID-19 PCR Ref Test Perform Site Objective Narrative Objective Narrative: Echo; Left Ventricle : The left ventricle is normal size. Left ventricular systolic function is mildly decreased. There is normal left ventricular wall thickness. Regional wall motion abnormalities are noted. LVEF is 40-45%. Right Ventricle : The right ventricle is normal size. The right ventricular systolic function is normal. The RVSP is 31.7 mmHg. Atria : The left atrium size is normal. The right atrium size is normal. Mitral Valve : Moderate mitral annular calcification. Moderate mitral regurgitation. No evidence of mitral valve stenosis. Great Vessels : The aortic root is normal in size. The ascending aorta is mildly dilated. IVC is normal in size and collapses >50% with inspiration. Compared to study from 10/02/2019, patient's overall LV function remains about the same as well as the existing anterior/apical wall motion abnormalities.
[2020-05-08] MEDS: Warfarin 5 MG TAB PO (20:26)
[2020-05-08] MEDS: ROSUVASTATIN 20 MG TAB PO (20:27)
[2020-05-08] MEDS: Ketoconazole 2% CREAM 15 GM TUBE TP (20:27)
[2020-05-08] MEDS: dilTIAZem CD 180 MG CAPCR PO (21:00)
[2020-05-08] MEDS: Insulin Glargine 300 UNITS/3 ML PEN 7 UNITS SC (21:01)
[2020-05-09] VITALS (15 sets, daily range): BP systolic 118–151; BP diastolic 66–96; PULSE 66–137; RESP 16–23; TEMP 36–36.8; O2SAT 95–97
[2020-05-09 07:21] LABS: Anion Gap 8.4 mmol/L (3-11); BUN 27 mg/dL (7-18); CO2 28.6 mmol/L (21.0-32.0); CREATININE 1.5 mg/dL (0.55-1.02); Calcium 8.6 mg/dL (8.5-10.1); Chloride 102 mmol/L (98-107); Estimated GFR 33.08 (mL/min/1.73m2); Glucose 109 mg/dL (74-106); Magnesium 2.1 mg/dL (1.8-2.4); Potassium 3.3 mmol/L (3.5-5.1); Sodium 139 mmol/L (136-145)
[2020-05-09 07:26] LABS: Prothrombin Time 19.6 sec (9.3-11.0)
[2020-05-09] MEDS: Normal Saline Flush 10 ML SYR IVP ×3 (09:27→16:08)
[2020-05-09] MEDS: Furosemide 40 MG/4 ML VIAL IVP (09:27)
[2020-05-09] MEDS: Ascorbic Acid 500 MG TAB 1000 MG PO (09:28)
[2020-05-09] MEDS: Multivitamin TAB 1 TAB PO (09:28)
[2020-05-09] MEDS: Docusate Sodium 100 MG CAP PO ×2 (09:28→20:21)
[2020-05-09] MEDS: Metoprolol CR 50 MG TABCR 100 MG PO (09:28)
[2020-05-09] MEDS: Aspirin E.C. 81 MG TABEC PO (09:28)
[2020-05-09] MEDS: Pantoprazole 40 MG TABCR PO (09:28)
[2020-05-09] MEDS: Magnesium Oxide 400 MG TAB PO (09:29)
[2020-05-09] MEDS: Fluticasone NASAL SPRAY 16 GM BTL NS (09:30)
--- NOTE | 2020-05-09 10:34 | PDOC.CMPRO ---
- If Service Date Differs Date of service: 05/09/20 Time of Service: 10:34 Care Management Progress Note S/O: Linda was sitting up in a chair when CM met with her. She was very pleasant and engaged readily with CM. Linda shared the details of her daily life and proudly asserted that she is still strong enough to care for herself. She does have help with housework and breakfast preparation, but otherwise Linda gets her own meals, dresses herself and ambulates independently with her walker. She chose to stop driving a while ago when she no longer felt safe. 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 Recently they have had tours' of orthodox sites which she has enjoyed. Linda did state that she would like home health nursing when she goes home, just for a while to check on her. A: Linda is an 85 year old woman admitted on 05/07/20 with dizziness, afib and elevated troponins P: Anticipate Linda will be discharged home when medically cleared by provider with new Home Health services, if appropriate. She will follow up with her PCP and discharge plan of care as directed. She will be driven home by her son Robert via private vehicle when ready. CM will continue to support patient and assess for discharge planning needs.
[2020-05-09] MEDS: cefTRIAXone 1 GM/50 ML BAG IVPB (11:14)
[2020-05-09] MEDS: Potassium Chloride 20 MEQ TABCR 40 MEQ PO (11:14)
[2020-05-09] MEDS: Insulin Aspart 300 UNITS/3 ML PEN SC ×3 (11:44→21:48)
[2020-05-09] MEDS: predniSONE 20 MG TAB 60 MG PO (14:54)
[2020-05-09] MEDS: Metoprolol 5 MG/5 ML VIAL IVP ×2 (14:55→16:08)
--- NOTE | 2020-05-09 15:50 | W.PM.PROGNOT ---
Date of Service Date of service: 05/09/20 Time of Service: 15:50 Assessment and Plan Assessment and plan (1) Acute on chronic systolic CHF (congestive heart failure): Status: Acute Assessment and plan: Switch to PO lasix. D/c villar. PE ruled out. EF 45-50% on latest echo, and she does have mild-moderate pulmonary hypertension with RVSP of 28.1mmHg. Rate is now controlled. Continue monitoring I/os, daily weights. Likely ok to discharge home tomorrow. (2) Hearing loss: Status: Acute Assessment and plan: Discussed with ENT at [facility]: recommended trial of prednisone 60 mg PO daily x 5 days, then decrease by 10 mg q 3 days, follow up with ENT/audiology for audiogram early next week. I have asked the front office clerk to try to make an appointment. (3) Paroxysmal atrial fibrillation with RVR: Status: Acute Assessment and plan: Again rapid. administering 2nd dose of metoprolol 5 mg IV. May require increase of PO meds tonight. (4) Elevated troponin: Status: Acute Assessment and plan: In setting of rapid Afib, CHF exacerbation. Troponins have been flat - this is not ACS. No further workup. (5) Dizziness: Status: Acute Assessment and plan: ?labirintitis, vertigo/Meniere's disease vs rapid afib. (6) ASCVD (arteriosclerotic cardiovascular disease): Status: Chronic Assessment and plan: as above (7) Discharge planning issues: Status: Acute Assessment and plan: DNR/DNI Possible discharge home tomorrow. Subjective Subjective Interval history since last seen: Ms Bautista states she is feeling better today, but does endorse twinges in her L hand. She is in rapid Afib with HR in 120s. This briefly responded to IV metoprolol, but then went back up to 120s. She is about to receive her 2nd dose. She denies dizziness, chest pain, shortness of breath, nausea. Her hearing in the right year is a little better; L ear is good. Case discussed with ENT at [facility]: sudden hearing loss could be viral or sensorineural, recommends trial of prednisone 60 mg PO daily x 5 days, then decrease by 10 mg every 3 days, and follow up with ENT/audiology early next week for audiogram. Exam Narrative Exam Narrative: General: Very pleasant elderly female, A&ox3, sitting in a chair, looks well HEENT: EOMI, MMM Cardiovascular: Irregularlly irregular rhythm, + MONICA Lungs: Crackles at B bases are faint Gastrointestinal: soft, nontender, nondistended Extremities: 2+ bilateral lower extremity edema, can see outline of tibia, slight wrinkling noted today Objective Last Vital Signs Temp 36.6 C 05/09/20 15:40 Pulse 137 H 05/09/20 15:40 Resp 16 05/09/20 15:40 BP 142/92 H 05/09/20 15:40 Pulse Ox 96 05/09/20 15:40 Laboratory Results - last 24 hr 05/09/20 05/09/20 06:10 06:10 PT 19.6 H D INR 2.0 H D Sodium 139 Potassium 3.3 L Chloride 102 Carbon Dioxide 28.6 Anion Gap 8.4 BUN 27 H Creatinine 1.5 H Estimated GFR/1.73 m2 33.08 Glucose 109 H Calcium 8.6 Magnesium 2.1
[2020-05-09] MEDS: Furosemide 40 MG TAB PO (16:08)
[2020-05-09] MEDS: dilTIAZem 30 MG TAB PO ×2 (17:00→19:03)
[2020-05-09] MEDS: ROSUVASTATIN 20 MG TAB PO (20:20)
[2020-05-09] MEDS: Warfarin 5 MG TAB PO (20:21)
[2020-05-09] MEDS: Ketoconazole 2% CREAM 15 GM TUBE TP (20:25)
[2020-05-09] MEDS: Verapamil 80 MG TAB 40 MG PO (21:41)
[2020-05-09] MEDS: Insulin Glargine 300 UNITS/3 ML PEN 7 UNITS SC (21:47)
[2020-05-09] MEDS: dilTIAZem CD 180 MG CAPCR PO (22:28)
[2020-05-10] VITALS (15 sets, daily range): BP systolic 106–152; BP diastolic 64–104; PULSE 73–133; RESP 16–22; TEMP 35.9–36.6; O2SAT 94–97
[2020-05-10] MEDS: Verapamil 80 MG TAB 40 MG PO (00:20)
[2020-05-10 07:26] LABS: BUN 41 mg/dL (7-18); CREATININE 2.1 mg/dL (0.55-1.02); Calcium 9.1 mg/dL (8.5-10.1); Chloride 97 mmol/L (98-107); Estimated GFR 22.44 (mL/min/1.73m2); Glucose 287 mg/dL (74-106); Magnesium 2.2 mg/dL (1.8-2.4); Sodium 135 mmol/L (136-145)
[2020-05-10 07:31] LABS: INR 1.8 (0.9-1.1); Prothrombin Time 17.8 sec (9.3-11.0)
[2020-05-10] MEDS: Aspirin E.C. 81 MG TABEC PO (07:50)
[2020-05-10] MEDS: Docusate Sodium 100 MG CAP PO ×2 (07:50→20:39)
[2020-05-10] MEDS: Ascorbic Acid 500 MG TAB 1000 MG PO (07:50)
[2020-05-10] MEDS: Multivitamin TAB 1 TAB PO (07:55)
[2020-05-10] MEDS: Furosemide 40 MG TAB PO (07:56)
[2020-05-10] MEDS: Fluticasone NASAL SPRAY 16 GM BTL NS (07:56)
[2020-05-10] MEDS: Magnesium Oxide 400 MG TAB PO (07:57)
[2020-05-10] MEDS: Insulin Aspart 300 UNITS/3 ML PEN SC ×4 (07:57→21:24)
[2020-05-10] MEDS: Pantoprazole 40 MG TABCR PO (07:58)
[2020-05-10] MEDS: predniSONE 20 MG TAB 60 MG PO (07:58)
[2020-05-10] MEDS: Metoprolol CR 50 MG TABCR 100 MG PO (07:58)
[2020-05-10] MEDS: Metoprolol CR 50 MG TABCR PO ×2 (09:12→21:24)
--- NOTE | 2020-05-10 10:34 | CMPROGNOTE_ITS ---
Care Management Progress Note S/O: Linda continues to be closely monitored with medication adjustments. Per MD, with continued stability she may be ready for discharge as soon as tomorrow. She will have new orders for VNA RN through [facility] notified agency. CM continues to follow. A: Linda is an 85 year old woman admitted on 05/07/20 with dizziness, afib and elevated troponins P: Anticipate Linda will be discharged home when medically cleared by provider with new orders for VNA/RN through [facility]. She does have help with housework and breakfast preparation, but otherwise Linda prepares her own meals, dresses herself and ambulates independently with her walker. She chose to stop driving a while ago when she no longer felt safe. She will follow up with her PCP and discharge plan of care as directed. She will be driven home by her son Robert via private vehicle when ready. CM will continue to support patient and assess for discharge planning needs.
--- NOTE | 2020-05-10 15:40 | PGE_ITS ---
Date of Service Date of service: 05/10/20 Time of Service: 15:40 Assessment and Plan Assessment and plan (1) Acute on chronic systolic CHF (congestive heart failure): Status: Acute Assessment and plan: Patient has been over diuresed. Furosemide's been placed on hold. I think her acute on chronic systolic heart failure was secondary to the rapid atrial fibrillation. We will continue to work on rate control as outlined above. Toprol-XL dose increased to 200 mg daily and diltiazem CD increase to 240 mg nightly. If this fails consider beginning either low-dose digoxin for initiating amiodarone therapy. (2) Hearing loss: Status: Acute Assessment and plan: Dr. Finley [place] [facility] [place] recommended trial of prednisone 60 mg PO daily x 5 days, then decrease by 10 mg q 3 days, follow up with ENT/audiology for audiogram early next week. (3) Paroxysmal atrial fibrillation with RVR: Status: Acute Assessment and plan: Adjustment of meds as above. (4) Elevated troponin: Status: Acute Assessment and plan: In setting of rapid Afib, CHF exacerbation. Troponins have been flat - this is not ACS. No further workup. (5) Dizziness: Status: Acute Assessment and plan: ?labirintitis, vertigo/Meniere's disease vs rapid afib. (6) ASCVD (arteriosclerotic cardiovascular disease): Status: Chronic Assessment and plan: as above (7) Prerenal azotemia: Status: Acute Assessment and plan: Secondary to overdiuresis. Furosemide placed on hold. We will repeat her BMP in the morning. (8) Discharge planning issues: Status: Acute Assessment and plan: DNR/DNI Discharge home is pending stabilization of her atrial fibrillation rate.. Subjective Subjective Interval history since last seen: Patient continues to experience exacerbation of her atrial fibrillation with heart rates into the 130s. She denies any chest pain or pressure. States when she gets up too quickly or moves too quickly she will get a little lightheaded and mildly dyspneic .Repeat labs today revealed that her BUN and creatinine are elevated at 41 and 2.1. I put her furosemide on hold. I gave her additional Toprol-XL 50 mg this morning in addition to her 100 mg that she received. She has as needed doses of Lopressor 5 mg IV every 6 hours as needed IV increase the frequency to every 1 hour as needed for sustained heart rate of 130 or greater. I will increase her diltiazem CD from 180 mg at at bedtime to 240 mg at at bedtime. We will get a repeat EKG in the morning. I am considering digitalizing her if the combination of diltiazem and metoprolol did not work. Another option would be to start her on amiodarone along with the beta-patrica and discontinue her diltiazem. With respect to her anticoagulation her INR is dropped down to 1.8. I increased her warfarin up to 7.5 mg every Tuesday and Tuesday evenings and 5 mg all other nights of the week. Exam Narrative Exam Narrative: Elderly female sitting up in her chair alert and oriented person place time circumstance playing [employer] on her computer tablet and watching TV. Lungs are clear to auscultation. Heart is irregularly irregular at a rapid rate. Abdomen soft and nontender. Lower extremities without pitting edema. Objective Last Vital Signs Temp 36.4 C L 05/10/20 15:00 Pulse 92 H 05/10/20 15:00 Resp 18 05/10/20 15:00 BP 134/104 H 05/10/20 15:00 Pulse Ox 94 05/10/20 15:00 Laboratory Results - last 24 hr 05/10/20 05/10/20 06:50 06:50 PT 17.8 H INR 1.8 H Sodium 135 L Potassium 4.0 D Chloride 97 L Carbon Dioxide 26.0 Anion Gap 12.0 H BUN 41 H D Creatinine 2.1 H Estimated GFR/1.73 m2 22.44 Glucose 287 H D Calcium 9.1 Magnesium 2.2
--- NOTE | 2020-05-10 15:45 | RT.EKG_ITS ---
APPROVED REPORT Exam: Resting ECG Patient Location: I HR:133 bpm ECG Measurements Heart Rate 133 AXIS ND [id number] P 0 QRSd 131 QRS -60 QT 379 T 108 QTc 564 Conclusion Sinus tachycardia...rate> 99 Left bundle branch block...QRSd>120, broad/notched R
[2020-05-10] MEDS: Normal Saline Flush 10 ML SYR IVP ×2 (17:59→20:40)
[2020-05-10] MEDS: Metoprolol 5 MG/5 ML VIAL IVP (17:59)
[2020-05-10] MEDS: ROSUVASTATIN 20 MG TAB PO (20:39)
[2020-05-10] MEDS: WARFARIN 5 MG, WARFARIN 2.5 MG 7.5 MG PO (20:39)
[2020-05-10] MEDS: Ketoconazole 2% CREAM 15 GM TUBE TP (20:46)
[2020-05-10] MEDS: dilTIAZem CD 120 MG CAPCR 240 MG PO (21:24)
[2020-05-10] MEDS: Insulin Glargine 300 UNITS/3 ML PEN 7 UNITS SC (21:25)
[2020-05-11] VITALS (12 sets, daily range): BP systolic 114–146; BP diastolic 73–84; PULSE 58–110; RESP 16–24; TEMP 36.3–36.9; O2SAT 93–98
[2020-05-11 07:54] LABS: INR 2.2 (0.9-1.1); Prothrombin Time 22.1 sec (9.3-11.0)
--- NOTE | 2020-05-11 08:00 | RT.EKG_ITS ---
APPROVED REPORT Exam: Resting ECG Patient Location: I HR:68 bpm ECG Measurements Heart Rate 68 AXIS MS [id number] P [id number] QRSd 143 QRS -41 QT 437 T 147 QTc 474 Conclusion Atrial flutter with varied AV block,...A-rate 263, varied AV conduction Ventricular premature complex...V complex w/ short R-R interval Left bundle branch block...QRSd>120, broad/notched R
[2020-05-11] MEDS: Insulin Aspart 300 UNITS/3 ML PEN SC ×5 (08:39→22:37)
[2020-05-11] MEDS: Metoprolol CR 50 MG TABCR 200 MG PO (08:40)
[2020-05-11] MEDS: Fluticasone NASAL SPRAY 16 GM BTL NS (08:40)
[2020-05-11] MEDS: Multivitamin TAB 1 TAB PO (08:40)
[2020-05-11] MEDS: Aspirin E.C. 81 MG TABEC PO (08:40)
[2020-05-11] MEDS: predniSONE 20 MG TAB 60 MG PO (08:40)
[2020-05-11] MEDS: Pantoprazole 40 MG TABCR PO (08:40)
[2020-05-11] MEDS: Magnesium Oxide 400 MG TAB PO (08:40)
[2020-05-11] MEDS: Docusate Sodium 100 MG CAP PO ×2 (08:40→20:51)
[2020-05-11] MEDS: Ascorbic Acid 500 MG TAB 1000 MG PO (08:40)
[2020-05-11 10:29] LABS: Anion Gap 11.2 mmol/L (3-11); BUN 55 mg/dL (7-18); CO2 24.8 mmol/L (21.0-32.0); CREATININE 1.8 mg/dL (0.55-1.02); Calcium 8.5 mg/dL (8.5-10.1); Chloride 96 mmol/L (98-107); Estimated GFR 26.81 (mL/min/1.73m2); Glucose 261 mg/dL (74-106); Potassium 3.8 mmol/L (3.5-5.1); Sodium 132 mmol/L (136-145)
--- NOTE | 2020-05-11 17:00 | W.PM.PROGNOT ---
Date of Service Date of service: 05/11/20 Time of Service: 17:00 Assessment and Plan Assessment and plan (1) Acute on chronic systolic CHF (congestive heart failure): Status: Acute Assessment and plan: Patient has been over diuresed. Furosemide's been placed on hold. I think her acute on chronic systolic heart failure was secondary to the rapid atrial fibrillation. We will continue to work on rate control as outlined above. . (2) Diabetes mellitus: Status: Chronic Assessment and plan: Blood sugars have been running high secondary to recent addition of prednisone. NPH should have been added to her regimen for coverage of her elevated glucose related to her prednisone. I have since added NPH at 0.5 units per 1 mg of prednisone. I have also uptitrated her Lantus and her sliding scale and added carbohydrate coverage. (3) Hearing loss: Status: Acute Assessment and plan: Dr. Finley discussed with ENT at [facility]: recommended trial of prednisone 60 mg PO daily x 5 days, then decrease by 10 mg q 3 days, follow up with ENT/audiology for audiogram early next week. (4) Paroxysmal atrial fibrillation with RVR: Status: Acute Assessment and plan: Adjustment of meds as above. (5) Elevated troponin: Status: Acute Assessment and plan: In setting of rapid Afib, CHF exacerbation. Troponins have been flat - this is not ACS. No further workup. (6) Prerenal azotemia: Status: Acute Assessment and plan: Secondary to overdiuresis. Furosemide placed on hold. We will repeat her BMP in the morning. (7) Dizziness: Status: Acute Assessment and plan: ?labirintitis, vertigo/Meniere's disease vs rapid afib. (8) ASCVD (arteriosclerotic cardiovascular disease): Status: Chronic Assessment and plan: as above (9) Discharge planning issues: Status: Acute Assessment and plan: DNR/DNI Discharge home is pending stabilization of her atrial fibrillation rate.. Subjective Subjective Interval history since last seen: Patient denies any chest pain or pressure or palpitations. Her atrial fibrillation/atrial flutter is been under variable control at times and has been under rates in the 60s to 80s but with activity her heart rate will get up into the 110s to 120s. She has no dizziness at rest but admits if she gets up too quickly she will get lightheaded. Blood pressure has been in the 120s to 130s. She is currently on Toprol-XL 200 mg once a day along with diltiazem CD 240 mg at night. At this point I do not feel that we can titrate her Toprol-XL and diltiazem any further. I think given her history of heart failure with reduced ejection fraction that we should seek alternative medications. I am going to continue her Toprol-XL but add low-dose digoxin. I will digitalize her with less than a full loading dose given her acute renal insufficiency. We will start off with a one-time dose of digoxin 0.25 mg IV now give her 2 more IV loading doses of 0.125 mg every 6 hours over the next 12 hours then hopefully put her on a low-dose oral digoxin of 0.125 mg daily. I am continue to hold her furosemide and allow her to equilibrate on her fluid status with a repeat BMP in the morning. With respect to her diabetes mellitus her blood sugars have been running high today in the mid 200s upwards into the 380s. I have increased her Lantus as well as her sliding scale and added some insulin coverage for carbohydrate coverage. She had been on a sliding scale at a sensitive level and I have uptitrated this to an insulin resistant scale. I have added carbohydrate coverage at a ratio of 1:10. And I have increased her Lantus to more than double from 7 units at at bedtime to 15 units at at bedtime. She would like to return home but understands that we need to have her atrial fibrillation under much better control. Currently she appears to be in atrial flutter at a 2: 1, 3: 1 AV block.. Exam Narrative Exam Narrative: Pleasant elderly obese female sitting up in a chair this afternoon in no acute distress denying any shortness of breath or chest pain. Lungs are clear to auscultation Heart is irregularly irregular at a slightly rapid pace. Abdomen is obese soft and nontender Lower extremities without pitting edema Objective Last Vital Signs Temp 36.9 C 05/11/20 15:30 Pulse 90 05/11/20 15:45 Resp 17 05/11/20 15:30 BP 146/77 H 05/11/20 15:30 Pulse Ox 96 05/11/20 15:30 Laboratory Results - last 24 hr 05/11/20 05/11/20 05/11/20 07:15 07:25 10:08 PT 22.1 H INR 2.2 H Sodium 132 L Cancelled Potassium 3.8 Cancelled Chloride 96 L Cancelled Carbon Dioxide 24.8 Cancelled Anion Gap 11.2 H Cancelled BUN 55 H D Cancelled Creatinine 1.8 H Cancelled Estimated GFR/1.73 m2 26.81 Cancelled Glucose 261 H Cancelled Calcium 8.5 Cancelled
[2020-05-11] MEDS: Digoxin 0.5 MG/2 ML AMP 0.25 MG IVP (18:44)
--- NOTE | 2020-05-11 19:18 | CMPROGNOTE_ITS ---
Care Management Progress Note S/O: Linda continues to be closely monitored with medication adjustments. Per MD, with continued stability she may be ready for discharge as soon as tomorrow. She will have new orders for VNA RN through [facility] notified agency. CM continues to follow. A: Linda is an 85 year old woman admitted on 05/07/20 with dizziness, afib and elevated troponins P: Anticipate Linda will be discharged home when medically cleared by provider with new orders for VNA/RN through [facility]. She does have help with housework and breakfast preparation, but otherwise Linda prepares her own meals, dresses herself and ambulates independently with her walker. She chose to stop driving a while ago when she no longer felt safe. She will follow up with her PCP and discharge plan of care as directed. She will be driven home by her son Robert via private vehicle when ready. CM will continue to support patient and assess for discharge planning needs.
[2020-05-11] MEDS: Warfarin 5 MG TAB PO (20:50)
[2020-05-11] MEDS: ROSUVASTATIN 20 MG TAB PO (20:50)
[2020-05-11] MEDS: Ketoconazole 2% CREAM 15 GM TUBE TP (20:51)
[2020-05-11] MEDS: Normal Saline Flush 10 ML SYR IVP (20:54)
[2020-05-11] MEDS: Metoprolol CR 50 MG TABCR PO (22:37)
[2020-05-11] MEDS: Insulin Glargine 300 UNITS/3 ML PEN 18 UNITS SC (22:38)
[2020-05-12] VITALS (11 sets, daily range): BP systolic 146–155; BP diastolic 75–98; PULSE 60–93; RESP 19–20; TEMP 36.4–36.6; O2SAT 95–98
[2020-05-12] MEDS: Digoxin 0.5 MG/2 ML AMP 0.125 MG IVP ×2 (00:22→06:15)
[2020-05-12] MEDS: Normal Saline Flush 10 ML SYR IVP ×4 (00:23→06:16)
[2020-05-12 07:43] LABS: Anion Gap 8.7 mmol/L (3-11); BUN 55 mg/dL (7-18); CO2 26.3 mmol/L (21.0-32.0); CREATININE 1.6 mg/dL (0.55-1.02); Calcium 8.5 mg/dL (8.5-10.1); Chloride 100 mmol/L (98-107); Estimated GFR 30.71 (mL/min/1.73m2); Glucose 116 mg/dL (74-106); NT-proBNP 2678 pg/mL (<300); Potassium 3.8 mmol/L (3.5-5.1); Sodium 135 mmol/L (136-145)
[2020-05-12 08:06] LABS: INR 3.2 (0.9-1.1); Prothrombin Time 31.1 sec (9.3-11.0)
[2020-05-12] MEDS: Insulin Aspart 300 UNITS/3 ML PEN SC ×4 (08:54→12:17)
[2020-05-12] MEDS: Insulin NPH-Human 300 UNITS/3 ML PEN 30 UNIT SC (08:55)
[2020-05-12] MEDS: Multivitamin TAB 1 TAB PO (08:56)
[2020-05-12] MEDS: Pantoprazole 40 MG TABCR PO (08:56)
[2020-05-12] MEDS: predniSONE 20 MG TAB 60 MG PO (08:56)
[2020-05-12] MEDS: Docusate Sodium 100 MG CAP PO (08:56)
[2020-05-12] MEDS: Ascorbic Acid 500 MG TAB 1000 MG PO (08:56)
[2020-05-12] MEDS: Metoprolol CR 50 MG TABCR 200 MG PO (08:56)
[2020-05-12] MEDS: Aspirin E.C. 81 MG TABEC PO (08:56)
[2020-05-12] MEDS: Magnesium Oxide 400 MG TAB PO (08:56)
[2020-05-12] MEDS: Fluticasone NASAL SPRAY 16 GM BTL NS (08:57)
--- NOTE | 2020-05-12 12:53 | W.INDIABCONS ---
Date of service: 05/12/20 Time of Service: 12:53 Diabetes Inpatient Consult DESCRIPTION/ASSESSMENT: 85 year old female readmitted with CHF, with hyperglycemia due (in part)to prednisone use. BMI indicates mild obesity. Most recent A1c: 7.9% (04/03/20) indicates adequately controlled BS in view of advanced age. Following diabetic diet with excellent intake. Not considered at nutritional risk. INTERVENTION: Diabetes education not warranted at this time in view of adequately controlled DM. PLAN: continue current meal plan, will monitor labs, weight and po intake Time Spent in Nutritional Counseling and Treatment: 0
--- NOTE | 2020-05-12 14:26 | W.PM.DS.N ---
Date of service: 05/12/20 Time of Service: 14:27 DS: Diagnosis Discharge Diagnosis (1) Paroxysmal atrial fibrillation with RVR: Status: Resolved Asessment and Plan: Rapid atrial fibrillation was finally controlled with digitalization. Patient will remain on increased dose of Toprol-XL 200 mg daily along with low-dose digoxin 0.125 mg every other day. Outpatient 14-day Holter was ordered and applied at the time of discharge. Patient is to follow-up with her mandrel puller for further evaluation and adjustment of her medicines for her heart failure and atrial fibrillation. Repeat prothrombin time is to be obtained in the next 2 to 3 days. Warfarin dose has been resumed at 5 mg nightly. (2) Acute on chronic systolic CHF (congestive heart failure): Status: Resolved Asessment and Plan: Acute congestive heart failure was felt to be secondary to her rapid atrial fibrillation which was most likely the cause of her dizziness. Dizziness resolved once we got her atrial fibrillation under control. She has chronic congestive heart failure with reduced ejection fraction as such needs monitoring and adjustment of her heart failure medicines including her lisinopril and her Toprol-XL and her furosemide. Repeat BMP is to be done in the next 2 to 3 days to monitor her azotemia. At that point her furosemide may be resumed with close monitoring of her weight and her BUN and creatinine. (3) Dizziness: Status: Resolved (4) Diabetes mellitus: Status: Chronic Asessment and Plan: During her hospitalization diabetes mellitus was exacerbated with hyperglycemia due to the prednisone burst for her acute hearing loss. This was treated with Lantus which replaced her Tresiba while she was hospitalized and she was placed on a sliding scale as well as carbohydrate coverage. Furthermore NPH was dosed to cover her for her steroids. (5) Hearing loss: Status: Acute Asessment and Plan: Acute hearing loss improved throughout her hospital stay. By the time she was admitted her left hearing loss had resolved but the right hearing loss continue but was gradually improving over the next few days. She will finish out a taper steroids with a 5-day course of prednisone 60 mg daily she has 2 more days of that and then she will taper every 2 days x 20 mg until off of prednisone. She is to follow-up with Dr. Rick Maddox, ENT, for audiologic testing and further treatment. (6) Elevated troponin: Status: Resolved Asessment and Plan: Patient is troponin rise was felt to be secondary to her atrial fibrillation with RVR and not due to a plaque rupture. She had no ischemic pain throughout her hospital stay. (7) Prerenal azotemia: Status: Acute Asessment and Plan: While her azotemia has improved with holding her Lasix it is not completely resolved and repeat BMP has been ordered for later this week. (8) ASCVD (arteriosclerotic cardiovascular disease): Status: Chronic (9) Atrial fibrillation: Status: Chronic (10) CHF (congestive heart failure): Status: Chronic Discharge Plan Disposition Patient Disposition: HOME W/HOME HEALTH SERVICE Condition: Improving Discharge Details Reason For Visit: ELEVATED TROPONIN, DIZZINESS, AFIB Admit Date/Time: 05/08/20 20:15 Admit Provider: Cristin Finley Attending Provider: Cristin Finley Primary Care Provider: Rad Yeh Hospital Course Hospital Course: 85-year-old female with a history of coronary artery disease with previous NSTEMI, chronic congestive heart failure with reduced ejection fraction (last EF 45-50% by echo in September 2019, paroxysmal atrial fibrillation, insulin requiring type 2 diabetes mellitus presented to the emergency department on May 07, 2020 with complaints of dizziness and acute hearing loss. Patient had a sudden onset of shortness of breath on the evening prior to admission that eventually passed when she woke up she had bilateral hearing loss and dizziness. Dizziness seem to be positionally related with changes from sitting to standing rather than vertiginous. Hearing loss had already improved in her left ear but had not resolved in her right ear. On arrival to the emergency department she had rapid atrial fibrillation heart rate in the 120s. She has an old left bundle branch block on her previous ECG. Normally she is anticoagulated with warfarin and takes Toprol-XL and diltiazem CD for her atrial fibrillation. In ER she required IV Lopressor for the rapid atrial fibrillation. She was noted to have a mildly elevated troponin of 0.14. She was also noted to have elevated proBNP of 3697. Admission BUN and creatinine were 22 and 1.2. She was admitted to the hospital service on medical/surgical floor on telemetry. Troponins continue to be cycled and they remain flat ranging between 0.13 and 0.15. She had no symptoms of chest pain or pressure. She was treated with IV diuretics and then her furosemide dose was increased to 40 mg [address] a day[address]. Finley who is the admitting hospitalist spoke with ENT from [facility] regarding her hearing loss it was unclear whether this was Me?jesusiat?re's versus a labyrinthitis or secondary to diuretics. Nevertheless short course of prednisone was recommended including 60 mg daily for 5 days and then taper off of this over the next few days after that. Her metoprolol dose was titrated upward from her previous dose of 100 mg daily and was increased to 200 mg daily. Diltiazem CD was uptitrated from 180 mg nightly to 240 mg nightly. In spite of this she continued having intermittent rapid atrial fibrillation in the 120s to 130s at which point her diltiazem CD was discontinued and she was treated with digoxin. On the day prior to discharge she was started on digoxin intravenous 0.25 mg and 2 more loading doses of 0.125 mg. After aggressive diuresis she had some azotemia in which her BUN peaked at 41 and creatinine peaked at 2.1 as of May 10, 2020. Her furosemide was withheld and this gradually improved over the next couple days however she still remain mildly azotemic upon discharge with a BUN of 55 and a creatinine 1.6. At this time the patient's furosemide as well as her lisinopril will be withheld until repeat BMP is available later this week. Her INR on admission was elevated 2.8 but progressively declined down to 1.8 despite being placed on her usual dose of warfarin 5 mg nightly. On May 10, 2020 her dose was increased to 5 mg every Tuesday and Tuesday and 7.5 mg every Tuesday and Tuesday. However at the time of discharge her INR was elevated at 3.2 and patient was advised to hold her warfarin tonight and restart it tomorrow night at 5 mg nightly. A follow-up prothrombin time has been ordered in addition to her BMP. Because of her renal insufficiency digoxin dose was prescribed at a reduced frequency of 0.125 mg p.o. every other day. Holter monitor for 14 days has been ordered upon discharge to monitor stability of her paroxysmal atrial fibrillation and atrial flutter. Is recommended she follow-up with her mandrel puller in the next 3 to 4 weeks and follow-up with her primary care provider in the next 1 to 2 weeks. Home health for visiting nurse and physical therapy has been ordered upon discharge. Home Meds and New Rx's Prescriptions: New metoprolol succinate 50 mg Tablet Extended Release 24 Hr 200 mg PO DAILY Qty: 30 RF: 1 digoxin 125 mcg (0.125 mg) Tablet 0.125 mg PO Q48H Qty: 15 RF: 0 prednisone 20 mg tablet See Rx Instructions .ROUTE .COMPLEX Qty: 12 RF: 0 Continued nitroglycerin 0.4 mg tablet, sublingual 0.4 mg Sublingual Q 5 MIN PRN Qty: 25 RF: 4 pantoprazole 40 mg tablet,delayed release (DR/EC) 40 mg PO DAILY Qty: 90 RF: 4 (DME) pen needle, diabetic [BD Ultra-Fine Juliann Pen Needle] 32 gauge x 5/32 needle See Dose Instructions .ROUTE .MEDSUPPLY Qty: 100 RF: 3 multivitamin [Daily Multi-Vitamin] 1 EACH tablet 1 tab PO DAILY RF: 0 ascorbic acid (vitamin C) 500 MG tablet 2 tab PO DAILY PRN RF: 0 Hold Instructions: Patient reports getting her vitamin C from multivitamin. chromium picolinate 1,000 MCG tablet 1,000 mcg PO daily prn RF: 0 Hold Instructions: Patient reports not taking for a while. aspirin [Adult Low Dose Aspirin] 81 mg tablet,delayed release (DR/EC) 81 mg PO DAILY RF: 0 lisinopril 5 mg tablet 2.5 mg PO HS Qty: 45 RF: 3 rosuvastatin [Crestor] 20 mg tablet 20 mg PO QPM Qty: 90 RF: 3 furosemide 20 mg tablet 40 mg PO DAILY Qty: 180 RF: 3 Tresiba FlexTouch U-100 100 unit/mL (3 mL) insulin pen 18 unit SC QHS RF: 0 docusate sodium [Colace] 100 mg Capsule 100 mg PO BID Qty: 60 RF: 0 magnesium oxide 400 mg (241.3 mg magnesium) Tablet 400 mg PO DAILY Qty: 10 RF: 0 sennosides [Senokot] 8.6 mg Tablet 1 tab PO BID PRN PRNQty: 60 RF: 0 bisacodyl 10 mg Suppository 10 mg ID DAILY PRN PRNQty: 10 RF: 0 ketoconazole 2 % Cream 1 applic topical QPM Qty: 30 RF: 1 acetaminophen 500 mg capsule 500 mg PO Q4H PRN PRN (Reason: pain) Qty: 0 RF: 0 warfarin 5 mg tablet 2.5 - 5 mg PO DAILY Qty: 60 RF: 5 Discontinued diltiazem HCl 180 mg capsule,extended release 24hr 180 mg PO HS Qty: 90 RF: 3 metoprolol succinate 50 mg tablet extended release 24 hr 100 mg PO DAILY Qty: 60 RF: 11 Discharge Instructions Instructions: A-fib (Atrial Fibrillation) (DC), Hearing Loss (GEN) Additional Instructions: Please continue to hold your furosemide (Lasix) and to get the results of your follow-up basic metabolic profile and your physician has told you to restart your Lasix. Hold your warfarin for tonight and then resume your warfarin at your previous dose of 5 mg nightly starting tomorrow night. Further adjustment of your warfarin will be based on your repeat prothrombin time/INR which will be done later this week. Start your digoxin tomorrow morning and this should be taken every other day. Continue prednisone for your acute hearing loss but take in a tapered fashion as directed beginning at 60 mg daily for 2 more days then decreasing by 20 mg every 2 days until finished. Follow-up with Dr. Rick Maddox for audiometry and further evaluation of your hearing loss. Follow respiratory's instructions regarding returning your Holter monitor. Continue to hold your lisinopril until your BMP lab is resulted and your physician tells you that your kidney function has returned to baseliine and it is safe to resume your lisinopril. Stand Alone Forms: Nursing Discharge Form Referrals: Anne-Marie Swanson MD [ [facility] STAFF PHYSICIAN] - 05/22/20 1:00 pm Jose De Jesus Maddox MD [ [facility] STAFF PHYSICIAN] - (The office will call you with an appointment to be seen next week) Rad Yeh [Primary Care Provider] - 05/20/20 9:00 am Activity:: Activity as Tolerated Equipment/Supplies:: No Equipment Needed Diet:: Carb Counting Discharge Orders Discharge Orders: Discharge Order (Routine); Ordered 05/12/20 Ordered By: Yong Carlos Ambulatory Orders: Basic Metabolic Panel (Routine) Timeframe: 3 Days Facility: [facility] - Location: Laboratory Outpatient Ordered By: Yong Cruz Prothrombin Time (Routine) Timeframe: 3 Days Facility: [facility] - Location: Laboratory Outpatient Ordered By: Yong Cruz 14 Day Reducing Salon Attendant (Routine) Timeframe: 10 Day Facility: [facility] - Location: Respiratory Therapy Ordered By: Yong Cruz DS: Summary Time Spent with Patient providing and/or coordinating discharge services: Greater than 30 minutes Specific discharge activities: Ordering medication changes, discussing meds with patient, ordering outpatient testing Status at Discharge Functional status at discharge: independent ambulation Overall status at discharge: patient is progressing back to baseline Mental Status: mental status grossly normal Speech and Movement: speech and movement normal Mood: congruent mood Affect: normal affect Exam Narrative Exam Narrative: Elderly female sitting up in her chair eating her lunch she is alert and oriented person place time circumstance in no acute disease comfort. She denies any dyspnea chest pain or pressure palpitations. Review of her rhythm strip shows that she is remained in atrial fibrillation but at a much more controlled rate heart rates in the 60s to 70s. Lungs are clear to auscultation Heart is irregularly irregular but at a controlled rate Abdomen soft nondistended nontender. Lower extremities without peripheral edema Psych Mental Status: mental status grossly normal Speech and Movement: speech and movement normal Mood: congruent mood Affect: normal affect DS: Data Vitals/I&O Vitals and I&O: Vital Signs Temperature 36.6 C 05/12/20 11:09 Temperature Source Tympanic 05/12/20 11:09 Pulse 70 05/12/20 11:09 Pulse Rhythm Irregular 05/12/20 05:49 Pulse 108 H 05/07/20 17:20 Respiratory Rate 19 05/12/20 11:09 Respiratory Effort Non-Labored 05/12/20 05:49 Respiratory Depth Normal 05/12/20 05:49 Respiratory Pattern Normal 05/12/20 05:49 Blood Pressure 155/80 H 05/12/20 11:09 Blood Pressure Mean 103 05/07/20 17:15 Blood Pressure Position Supine 05/07/20 09:54 Pulse Oximetry 95 05/12/20 11:09 Oxygen Delivery Method Room Air 05/12/20 11:09 Oxygen Flow Rate 0 05/12/20 11:09 Pain Level 0 05/12/20 11:09 Comment 05/12/20 06:20 Intake & Output 05/11/20 05/12/20 05/12/20 23:59 11:59 23:59 Intake Total 520 / 870 240 / 480 240 / 480 Output Total 750 / 1550 500 / 500 Balance -230 / -680 -260 / -20 240 / -20 Weight 74.9 kg Intake: IV 30 / 40 Oral 490 / 830 240 / 480 240 / 480 Output: Urine 750 / 1550 500 / 500 Other: Urine Color Yellow Yellow Urine Appearance Clear Cloudy Urine Odor Normal Stool Size Small Moderate Stool Characteristics Soft Formed Brown Voiding Methods Toilet Toilet Data Completed and Pending Labs on day of discharge: Labs from last 24 hours 05/12/20 05/12/20 06:35 06:35 PT 31.1 H D INR 3.2 H D Sodium 135 L Potassium 3.8 Chloride 100 Carbon Dioxide 26.3 Anion Gap 8.7 BUN 55 H Creatinine 1.6 H Estimated GFR/1.73 m2 30.71 Glucose 116 H D Calcium 8.5 NT-Pro-B Natriuret Pep 2678 H [facility] Medical History (Updated 05/12/20 @ 14:50 by Yong Cruz) Acute on chronic systolic heart failure Arthritis ASCVD (arteriosclerotic cardiovascular disease) (04/22/15) OR with out of hosp cardiac arrest LAD stent, LVEF 35% Atrial fibrillation (05/27/11) paroxysmal Oct 2009 Carpal tunnel syndrome on both sides s/p Left ECTR 01/30/2020 CHF (congestive heart failure) Chronic HFrEF (heart failure with reduced ejection fraction) Chronic low back pain Complementary medicine homeopathic primarily: DNI (do not intubate) DNR (do not resuscitate) Essential hypertension (01/04/13) echo 2007 LVH uncontrolled BP (neg w/u for pheo) Foot drop, left GERD (gastroesophageal reflux disease) Goals of care, counseling/discussion Hyperlipidemia Hypertensive retinopathy Hyponatremia Impaired left ventricular function (~05/2019) [facility] [place]; 35% Leg length discrepancy Lives alone Low back pain Lumbar stenosis Mild obstructive sleep apnea (11/17/15) [facility] NSTEMI (non-ST elevated myocardial infarction) (~05/2019) [facility] [place] Palliative care patient Pedal edema POLST (Physician Orders for Life-Sustaining Treatment) Refusal of blood transfusions as patient is Anabaptist Renal insufficiency Type II diabetes mellitus with complication, uncontrolled (05/14/14) Surgical History (Updated 03/24/20 @ 12:33 by Antonia Carter) History of appendectomy History of carpal tunnel surgery of left wrist (01/30/20) History of right hip replacement Family History Brother Cancer Brother Cancer Leukemia Mother Asthma Sister Cancer Brother Dementia lives in SNF Son No problems noted. Son Paraplegic spinal paralysis motor vehicle crash Son No problems noted. Son No problems noted. Social History Smoking/Tobacco Use Status: Never Second Hand Exposure: No Smoking risk assessment performed?: Yes Alcohol Intake: never Drug use: Never Substance use type: does not use Caregiver/Support person: No Household members: none Housing: house Number of Children: 4 number of grandchildren: 5 Communication Needs: Corrective Lenses Education Level: high school Do you need help understanding health information?: Often current occupation: Retired Pets and animals: Yes Pets and animals: cat(s) and dog(s) Current gender identity: female What is your relationship status?: How often do you talk on the phone with friends or family?: three or more times per week How often do you get together with friends or relatives?: three or more times per week How often do you attend restorationist or confucianism services?: 4 or more times per year Panel score (0-1 are the most socially isolated patients): 2 What type of physical activity do you participate in: assisted ambulation Duration: 15-30 minutes/day Frequency: does not exercise Faviola/Oriental Orthodox: Anabaptist Special faviola needs: Yes (no transfusion) Agree to transfusion: No Seatbelt use: always Drive intox or ride w/intox street flusher driver: No Do you feel safe at home: Yes Do you feel safe in your relationship?: Yes Additional Social history: Lives alone but sons and their spouses check in regularly. Linda's family hires [employer] to help with housework mostly. Hip pain so much better since her surgery with Dr Stovall. Up and about easily within her house. No pain at all. Take a homeopathic arnica based medication for her left thigh pain. Happy overall. Life is so much better since my surgery. I can take care of myself!
--- NOTE | 2020-05-12 15:01 | PDOC.HHF2F_ITS ---
Home Health Certification Home Health Certification: 1. Encounter Date and Reason I certify that ADAM BAILON was seen by Yong Cruz on 05/12/20 and that I had a [id number] encounter with this patient that meets the physician face to face encounter requirements. 2. Clinical Findings Supporting Skilled Need and Homebound Status I certify that home health services are medically necessary, include either intermittent detention and/or physical/speech therapy, and that this marc ent is homebound in that absences from the home require considerable and taxing effort and are infrequent or of short duration, or are attributable to the need to receive medical care. [X] (a) Attached documentation from encounter provides clinical findings supporting skilled need and homebound status (including what assistance patient requires to leave the home). The encounter with the patient was in whole, or in part, for the following medical condition, which is the primary reason for home health care: ELEVATED TROPONIN, DIZZINESS, AFIB Intermediate: Visiting nurse to evaluate patient's congestive heart failure and atrial fibrillation and acute prerenal azotemia. Nursing to draw follow-up BMP and prothrombin time in the next 2 to 3 days and report the results to the patient's PCP. Nursing to educate the patient on management of CHF and monitoring for exacerbation of the same. Physical Therapy: Physical therapy to evaluate and treat for generalized deconditioning and weakness secondary to recent hospitalization for rapid atrial fibrillation. Speech Therapy: Homebound: Patient's recent hospitalization makes her unsteady in her gait and unsafe to leave her home for medical follow-up. 3. Certification and Authentication I certify that I composed the above information based on my clinical judgement relating to this patient's medical condition and, if applicable, clinical findings communicated to me by the NPP or inpatient physician who performed the Home Health Referral. All further orders will be obtained through Dr. Rad Yeh (Community Based Physician - PCP)
--- NOTE | 2020-05-12 17:57 | PDOC.CMDIS ---
- If Service Date Differs Date of service: 05/12/20 Time of Service: 17:57 LACE Index Scoring Tool - Questions: Length of Stay (in days): 3 Acuity (Admit via E.D.?): Yes Comorbidities: Diabetes w/o Complication, Congestive Heart Failure E.D. Visits: 4 - Answers: Total Score: 13 Risk of Readmission: High Risk Care Management Discharge Reason for Hospitalization: Elevated troponin, dizziness, and afib. Discharge Plan: Linda will return home with new orders for HH RN, PT today. She will have a 14 day halter monitor on her, placed by RT. Her son will drive her home via private vehicle. She will follow up with her PCP and discharge plan of care. She is happy to be going home today. Patient/Family Education Needs: Review discharge instructions regarding activity levels and medications, discussion of self care needs and goals of care. Services Needed at Discharge: Home Health Care Services (RN, PT)
== END 2020-05-12 15:42 | disposition home health service (06) | DRG 308 ==
LOC: ER 15:01 → MS 17:41
PROVIDERS: Internal Medicine; Admitting Provider Internal Medicine; Emergency Provider Physician Assistant; PCP Family Medicine; Visit Provider Internal Medicine
DX: I48.0 Paroxysmal atrial fibrillation (principal); I50.23 Acute on chronic systolic (congestive) heart failure; E87.1 Hypo-osmolality and hyponatremia; I11.0 Hypertensive heart disease with heart failure; E11.65 Type 2 diabetes mellitus with hyperglycemia; H91.93 Unspecified hearing loss, bilateral; R74.8 Abnormal levels of other serum enzymes; I25.10 Atherosclerotic heart disease of native coronary artery without angina pectoris; I25.2 Old myocardial infarction; Z79.4 Long term (current) use of insulin; Z66 Do not resuscitate; G89.29 Other chronic pain; M54.5 Low back pain; K21.9 Gastro-esophageal reflux disease without esophagitis; G47.33 Obstructive sleep apnea (adult) (pediatric); H35.039 Hypertensive retinopathy, unspecified eye
CPT/HCPCS: 36415; 36416; 71275; 80048; 80053; 82962; 87077; 93005; 93246; 93306; 96361; 96365; 96375; 99220; 99232; 99233; 99239; 99285; U0003; U0005; 70450; 71046; 81003; 81015; 83735; 83880; 84484; 85025; 85610; 85730; 87086; 87186; 93010; 93970; 99281; G0378; J0696; J1160; J1940; J1941; J3490; J7512

== ENCOUNTER 2020-05-20 02:33 | Outpatient (CLI) | payer MEDICARE, OTHER, SELFPAY ==
[2020-05-20 12:59] LABS: Anion Gap 7.8 mmol/L (3-11); BUN 34 mg/dL (7-18); CO2 30.2 mmol/L (21.0-32.0); CREATININE 1.5 mg/dL (0.55-1.02); Calcium 8.8 mg/dL (8.5-10.1); Chloride 98 mmol/L (98-107); Estimated GFR 33.08 (mL/min/1.73m2); Glucose 241 mg/dL (74-106); Potassium 4.2 mmol/L (3.5-5.1); Prothrombin Time 29.3 sec (9.3-11.0); Sodium 136 mmol/L (136-145)
== END 2020-05-20 02:34 | disposition home or self-care (01) ==
LOC: LOS 02:33
PROVIDERS: Internal Medicine; PCP Family Medicine; Visit Provider Family Medicine
DX: I48.91 Unspecified atrial fibrillation (principal); Z79.01 Long term (current) use of anticoagulants; R79.89 Other specified abnormal findings of blood chemistry; R39.2 Extrarenal uremia
CPT/HCPCS: 36415; 80048; 85610

== ENCOUNTER → 2020-05-22 12:56 | Outpatient (BNVA) | payer MEDICARE, OTHER, SELFPAY ==
--- NOTE | 2020-05-29 08:36 | W.ZIOMONITOR ---
Date of service: 05/29/20 Time of Service: 08:36 14 Day Teaching Associate Referring Provider:: Kiki Indications:: AF Note: This is a 14-day monitor ordered for indication of atrial fibrillation. Patient was in atrial fibrillation for the entirety of the recording with great rate control and an average heart rate of 70 bpm. (30 bpm - 123 bpm) The longest pause was 3.7 seconds. This was asymptomatic. Patient had no episodes of ventricular tachycardia, and no episodes of other SVT. There were rare PVCs. There were no patient triggered events.
== END ==
PROVIDERS: PCP Family Medicine; Referring Provider Family Medicine; Visit Provider Internal Medicine Cardiovascular Disease
DX: I50.22 Chronic systolic (congestive) heart failure (principal); I10 Essential (primary) hypertension; I25.10 Atherosclerotic heart disease of native coronary artery without angina pectoris; I48.11 Longstanding persistent atrial fibrillation
CPT/HCPCS: 99214

== ENCOUNTER 2020-05-29 04:11 | Outpatient (CLI) | payer MEDICARE, OTHER, SELFPAY ==
[2020-05-29 10:22] LABS: INR 3.5 (0.9-1.1); Prothrombin Time 33.8 sec (9.3-11.0)
== END 2020-05-29 04:12 | disposition home or self-care (01) ==
LOC: LBO 04:11
PROVIDERS: PCP Family Medicine; Visit Provider Family Medicine
DX: I48.0 Paroxysmal atrial fibrillation (principal); I82.401 Acute embolism and thrombosis of unspecified deep veins of right lower extremity; Z79.01 Long term (current) use of anticoagulants; Z47.89 Encounter for other orthopedic aftercare; R20.2 Paresthesia of skin
CPT/HCPCS: 36415; 99213; 85610

== ENCOUNTER 2020-05-29 08:36 | Outpatient (CLI) | payer MEDICARE, OTHER, SELFPAY | END 2020-05-29 08:37 | disposition home or self-care (01) | LOC: CARDO 06-09 16:33 | PROVIDERS: PCP Family Medicine; Referring Provider Internal Medicine; Visit Provider Internal Medicine Cardiovascular Disease | DX: I48.91 Unspecified atrial fibrillation (principal) | CPT/HCPCS: 93248 ==

== ENCOUNTER → 2020-06-26 10:31 | Outpatient (BNVA) | payer MEDICARE, OTHER, SELFPAY | PROVIDERS: PCP Family Medicine; Referring Provider Family Medicine; Visit Provider Student in an Organized Health Care Education/Training Program | DX: Z47.89 Encounter for other orthopedic aftercare (principal); R20.0 Anesthesia of skin | CPT/HCPCS: 99441 ==

== ENCOUNTER → 2020-07-08 10:32 | Outpatient (BNVA) | payer MEDICARE, OTHER, SELFPAY | PROVIDERS: PCP Family Medicine; Referring Provider Family Medicine; Visit Provider Internal Medicine Cardiovascular Disease | DX: I50.22 Chronic systolic (congestive) heart failure (principal); I11.0 Hypertensive heart disease with heart failure; I48.11 Longstanding persistent atrial fibrillation; I25.10 Atherosclerotic heart disease of native coronary artery without angina pectoris | CPT/HCPCS: 99213 ==

== ENCOUNTER 2020-08-07 02:17 | Outpatient (CLI) | payer MEDICARE, OTHER, SELFPAY ==
[2020-08-07 10:12] LABS: Prothrombin Time 14.4 sec (9.3-11.0)
[2020-08-07 10:13] LABS: INR 1.4 (0.9-1.1)
== END 2020-08-07 02:18 | disposition home or self-care (01) ==
LOC: LBO 02:17
PROVIDERS: PCP Family Medicine; Visit Provider Family Medicine
DX: Z79.01 Long term (current) use of anticoagulants (principal); Z86.718 Personal history of other venous thrombosis and embolism; I25.10 Atherosclerotic heart disease of native coronary artery without angina pectoris
CPT/HCPCS: 36415; 85610

== ENCOUNTER 2020-08-14 03:15 | Outpatient (CLI) | payer MEDICARE, OTHER, SELFPAY ==
[2020-08-14 11:09] LABS: INR 2.5 (0.9-1.1); Prothrombin Time 24.6 sec (9.3-11.0)
== END 2020-08-14 03:16 | disposition home or self-care (01) ==
PROVIDERS: PCP Family Medicine; Visit Provider Family Medicine
DX: I82.401 Acute embolism and thrombosis of unspecified deep veins of right lower extremity (principal); Z79.01 Long term (current) use of anticoagulants
CPT/HCPCS: 36415; 85610

== ENCOUNTER 2020-08-18 11:04 | Outpatient (CLI) | payer MEDICARE, OTHER, SELFPAY ==
--- NOTE | 2020-08-18 11:00 | RT.EKG_ITS ---
APPROVED REPORT Exam: Resting ECG Reason for Exam: Rapid irregular heartbeat Patient Location: O HR:131 bpm ECG Measurements Heart Rate 131 AXIS ID 105 P -43 QRSd 122 QRS -32 QT 344 T 132 QTc 507 Conclusion Atrial flutter with variable conduction Left bundle branch block...QRSd>120, broad/notched R
== END 2020-08-18 11:05 | disposition home or self-care (01) ==
PROVIDERS: PCP Family Medicine; Visit Provider Family Medicine
DX: R00.0 Tachycardia, unspecified (principal)
CPT/HCPCS: 93010

== ENCOUNTER → 2020-08-18 14:03 | Outpatient (BNVA) | payer MEDICARE, OTHER, SELFPAY | PROVIDERS: PCP Family Medicine; Referring Provider Family Medicine; Visit Provider Student in an Organized Health Care Education/Training Program | DX: R69 Illness, unspecified (principal) ==

== ENCOUNTER 2020-08-19 03:19 | Outpatient (CLI) | payer MEDICARE, OTHER, SELFPAY ==
[2020-08-19 12:40] LABS: HCT 36.5 % (36.0-46.0); HGB 11.9 g/dL (11.2-15.7); MCH 29.6 pg (27.0-33.0); MCHC 32.6 % (32.0-36.0); MCV 90.8 fL (80-95); MPV 13.7 fL (8.0-11.0); Platelet Count 167 10^3/uL (130-400); RBC 4.02 10^6/uL (3.93-5.22); RDW 14.1 % (11.7-14.6); RDW-SD 46.9 fL
[2020-08-19 12:49] LABS: INR 2.5 (0.9-1.1); Prothrombin Time 24.6 sec (9.3-11.0)
[2020-08-19 12:58] LABS: ALT 35 U/L (14-59); AST 29 U/L (15-37); Albumin 3.2 g/dL (3.4-5.0); Alkaline Phosphatase 78 U/L (46-116); Anion Gap 9.4 mmol/L (3-11); BUN 26 mg/dL (7-18); Bilirubin, Total 0.5 mg/dL (0.2-1.0); CO2 28.6 mmol/L (21.0-32.0); CREATININE 1.5 mg/dL (0.55-1.02); Calcium 8.4 mg/dL (8.5-10.1); Chloride 101 mmol/L (98-107); Estimated GFR 33.08 (mL/min/1.73m2); Glucose 193 mg/dL (74-106); NT-proBNP 6346 pg/mL (<300); Potassium 3.9 mmol/L (3.5-5.1); Sodium 139 mmol/L (136-145); TSH 4.45 uIU/mL (0.36-3.74); Total Protein 6.5 g/dL (6.4-8.2)
[2020-08-20 10:45] LABS: FREE T4 1.37 ng/dL (0.76-1.46)
== END 2020-08-19 03:20 | disposition home or self-care (01) ==
LOC: LOS 03:19
PROVIDERS: PCP Family Medicine; Visit Provider Family Medicine
DX: I25.10 Atherosclerotic heart disease of native coronary artery without angina pectoris (principal); K21.9 Gastro-esophageal reflux disease without esophagitis; I48.11 Longstanding persistent atrial fibrillation; I50.9 Heart failure, unspecified
CPT/HCPCS: 36415; 80053; 85027; 83880; 84439; 84443; 85610

== ENCOUNTER 2020-08-19 14:04 | Outpatient (CLI) | payer MEDICARE, OTHER, SELFPAY ==
--- NOTE | 2020-08-19 14:00 | RT.EKG_ITS ---
APPROVED REPORT Exam: Resting ECG Reason for Exam: F/U tachycardia from appt yesterday Patient Location: O HR:117 bpm ECG Measurements Heart Rate 117 AXIS MT 181 P -23 QRSd 129 QRS -37 QT 361 T 142 QTc 486 Conclusion Atrial fibrillation Left bundle branch block...QRSd>120, broad/notched R
== END 2020-08-19 14:05 | disposition home or self-care (01) ==
LOC: DI.CM 14:05
PROVIDERS: PCP Family Medicine; Visit Provider Family Medicine
DX: R00.0 Tachycardia, unspecified (principal)
CPT/HCPCS: 93010

== ENCOUNTER 2020-08-23 11:34 | Outpatient (CLI) | payer MEDICARE, OTHER, SELFPAY ==
--- NOTE | 2020-08-23 11:30 | RT.EKG_ITS ---
APPROVED REPORT Exam: Resting ECG Reason for Exam: Follow up Patient Location: O HR:137 bpm ECG Measurements Heart Rate 137 AXIS LA [id number] P [id number] QRSd 137 QRS -47 QT 339 T 143 QTc 513 Conclusion Atrial fibrillation Left bundle branch block...QRSd>120, broad/notched R
== END 2020-08-23 11:35 | disposition home or self-care (01) ==
LOC: DI.CM 11:35
PROVIDERS: PCP Family Medicine; Visit Provider Nurse Practitioner Family
DX: R00.0 Tachycardia, unspecified (principal)
CPT/HCPCS: 93010

== ENCOUNTER 2020-08-23 12:05 | Observation (INO) | payer MEDICARE, OTHER, SELFPAY ==
[2020-08-23] VITALS (60 sets, daily range): BP systolic 110–165; BP diastolic 67–104; PULSE 67–150; RESP 13–34; TEMP 36.1–37.1; O2SAT 83–100
--- NOTE | 2020-08-23 12:00 | RT.EKG_ITS ---
APPROVED REPORT Exam: Resting ECG Reason for Exam: rapid heart rate Patient Location: E HR:128 bpm ECG Measurements Heart Rate 128 AXIS MS [id number] P [id number] QRSd 133 QRS -45 QT 340 T 130 QTc 502 Conclusion Atrial flutter...A-rate 294 Left bundle branch block...QRSd>120, broad/notched R Afib.
--- NOTE | 2020-08-23 12:15 | DI.RAD_ITS ---
Exam(s) XR CHEST 2V PA LATERAL EXAM: XR CHEST 2V PA LATERAL CLINICAL HISTORY: shortness of breath, r/o acute disease TECHNIQUE: 2D digital imaging was performed. COMPARISON: No exams were available for comparison FINDINGS: MEDIASTINUM: Normal. HEART: Normal. PULMONARY VASCULATURE: Normal. LUNGS: Clear. PLEURAL SPACE: No pleural effusion or pneumothorax. BONE:Within normal limits for the patient's age. OTHER FINDINGS:Normal. IMPRESSION: No acute pulmonary findings. DATA REPOSITORY: RADIATION DOSE DELIVERED:
--- NOTE | 2020-08-23 12:21 | W.ED.GENAD ---
Discharge Plan Disposition Patient Disposition: [facility] INPATIENT Condition: Stable Discharge Details Clinical Impression: Atrial fibrillation with rapid ventricular response, Elevated troponin Admit Date/Time: 08/23/20 16:14 Admit Provider: Cristin Finley Attending Provider: Cristin Finley Primary Care Provider: Rad Yeh. ED Provider: Juanita Huang Discharge Data Discharge Date/Time-TO BE ENTERED AT DEPARTURE: 08/23/20 17:01 Medical Decision Making 85-year-old female with a history of atrial fibrillation, CHF, hypertension, NSTEMI, diabetes presents for shortness of breath, fatigue and belching for the past week. EKG noted a rate of 128, atrial fibrillation. Heart rate 120s. Blood pressure 143/96. Patient appears comfortable and nontoxic. Patient has taken her diltiazem and metoprolol this morning. Will give 15 mg of diltiazem IV. Will check screening labs, chest x-ray. Labs and imaging reviewed. White blood cell count 9. INR 2.8. Troponin elevated at 0.18. BNP elevated at 6827. Chest x-ray reviewed and no evidence of pleural effusion or infiltrate. Case discussed with hospitalist regarding elevated troponin. Suspect that this is due to increased demand from atrial fibrillation. Recommends repeating a troponin due at 1530. If stable or downtrending, will admit here for observation overnight. If uptrending, consider transfer. Repeat troponin downtrending. Repeat EKG notes A flutter, rate controlled. Patient ambulated to the commode and felt return of her atrial fibrillation. HR noted to be 70s-80s on the monitor and appears regular. Discussed with hospitalist who accepts patient for admission. Medical Records Medical records reviewed: Yes I reviewed the patient's medical records. Imaging Data Radiologic Study: Radiologist's impression: XR Chest Exam date and time: 08/23/2020 12:20 PM Age: 85 years old Clinical indication: Shortness of breath TECHNIQUE: Imaging protocol: XR of the chest. Views: 2 views. COMPARISON: CR XR CHEST 2V PA LATERAL 05/07/2020 11:38 AM FINDINGS: Lungs: Unremarkable. No consolidation. Pleural spaces: Unremarkable. No pleural effusion. No pneumothorax. Heart/Mediastinum: Unremarkable. No cardiomegaly. Bones/joints: No acute osseous abnormality. IMPRESSION: No acute findings. Lab Data Lab results reviewed: Yes I reviewed the patient's lab results. Labs: Laboratory Tests Range/Units 08/23/20 08/23/20 08/23/20 12:25 12:25 12:25 WBC (4.4-10.8) 10^3/uL 9.33 RBC (3.93-5.22) 10^6/uL 3.83 L Hgb (11.2-15.7) g/dL 11.4 Hct (36.0-46.0) % 34.4 L MCV (80-95) fL 89.8 MCH (27.0-33.0) pg 29.8 MCHC (32.0-36.0) % 33.1 RDW (11.7-14.6) % 14.0 Plt Count (130-400) 10^3/uL 160 MPV (8.0-11.0) fL 13.4 H Immature Gran % 0.2 Neutrophils % 70.8 Lymphocytes % 18.8 Monocytes % 7.9 Eosinophils % 1.5 Basophils % 0.8 Nucleated RBC % % 0 Absolute Neutrophils (1.2-6.7) 10^3/uL 6.61 Absolute Lymphocytes (1.2-3.4) 10^3/uL 1.75 Absolute Monocytes (0.1-0.8) 10^3/uL 0.74 Absolute Eosinophils (0.0-0.7) 10^3/uL 0.14 Absolute Basophils (0.0-0.2) 10^3/uL 0.07 PT (9.3-11.0) sec 27.9 H INR (0.9-1.1) 2.8 H APTT (21.0-27.5) sec 34.9 H Sodium (136-145) mmol/L 133 L Potassium (3.5-5.1) mmol/L 3.4 L Chloride (98-107) mmol/L 99 Carbon Dioxide (21.0-32.0) mmol/L 28.8 Anion Gap (3-11) mmol/L 5.2 BUN (7-18) mg/dL 33 H Creatinine (0.55-1.02) mg/dL 1.6 H Estimated GFR/1.73 m2 (mL/min/1.73m2) 30.71 Glucose (74-106) mg/dL 159 H Calcium (8.5-10.1) mg/dL 8.7 Magnesium (1.8-2.4) mg/dL 2.2 Total Bilirubin (0.2-1.0) mg/dL 0.4 AST (15-37) U/L 36 ALT (14-59) U/L 49 Alkaline Phosphatase (46-116) U/L 101 Troponin I (<0.06) ng/mL 0.18 H* NT-Pro-B Natriuret Pep (<300) pg/mL Total Protein (6.4-8.2) g/dL 7.0 Albumin (3.4-5.0) g/dL 3.3 L TSH (0.36-3.74) uIU/mL Free T4 (0.76-1.46) ng/dL Urine Color (Yellow) Urine Clarity (Clear) Urine pH (5-8) Ur Specific [place] (1.005-1.025) Urine Protein (Negative) mg/dL Urine Ketones (Negative) mg/dL Urine Blood (Negative) Urine Nitrite (Negative) Urine Bilirubin (Negative) Urine Urobilinogen (Up TO 0.2) EU/dL Ur Leukocyte Esterase (Negative) Urine RBC (0-2) HPF Urine WBC (0-5) HPF Ur Epithelial Cells (Negative) HPF Urine Crystals (Negative) HPF Urine Bacteria (Negative) HPF Urine Casts (Negative) LPF Urine Mucus (Negative) Ur Culture Indicated? Urine Glucose (Negative) mg/dL COVID-19 Source Range/Units 08/23/20 08/23/20 08/23/20 12:25 12:25 13:32 WBC (4.4-10.8) 10^3/uL RBC (3.93-5.22) 10^6/uL Hgb (11.2-15.7) g/dL Hct (36.0-46.0) % MCV (80-95) fL MCH (27.0-33.0) pg MCHC (32.0-36.0) % RDW (11.7-14.6) % Plt Count (130-400) 10^3/uL MPV (8.0-11.0) fL Immature Gran % Neutrophils % Lymphocytes % Monocytes % Eosinophils % Basophils % Nucleated RBC % % Absolute Neutrophils (1.2-6.7) 10^3/uL Absolute Lymphocytes (1.2-3.4) 10^3/uL Absolute Monocytes (0.1-0.8) 10^3/uL Absolute Eosinophils (0.0-0.7) 10^3/uL Absolute Basophils (0.0-0.2) 10^3/uL PT (9.3-11.0) sec INR (0.9-1.1) APTT (21.0-27.5) sec Sodium (136-145) mmol/L Potassium (3.5-5.1) mmol/L Chloride (98-107) mmol/L Carbon Dioxide (21.0-32.0) mmol/L Anion Gap (3-11) mmol/L BUN (7-18) mg/dL Creatinine (0.55-1.02) mg/dL Estimated GFR/1.73 m2 (mL/min/1.73m2) Glucose (74-106) mg/dL Calcium (8.5-10.1) mg/dL Magnesium (1.8-2.4) mg/dL Total Bilirubin (0.2-1.0) mg/dL AST (15-37) U/L ALT (14-59) U/L Alkaline Phosphatase (46-116) U/L Troponin I (<0.06) ng/mL NT-Pro-B Natriuret Pep (<300) pg/mL 6827 H Total Protein (6.4-8.2) g/dL Albumin (3.4-5.0) g/dL TSH (0.36-3.74) uIU/mL 6.53 H Free T4 (0.76-1.46) ng/dL 1.41 Urine Color (Yellow) Urine Clarity (Clear) Urine pH (5-8) Ur Specific [place] (1.005-1.025) Urine Protein (Negative) mg/dL Urine Ketones (Negative) mg/dL Urine Blood (Negative) Urine Nitrite (Negative) Urine Bilirubin (Negative) Urine Urobilinogen (Up TO 0.2) EU/dL Ur Leukocyte Esterase (Negative) Urine RBC (0-2) HPF Urine WBC (0-5) HPF Ur Epithelial Cells (Negative) HPF Urine Crystals (Negative) HPF Urine Bacteria (Negative) HPF Urine Casts (Negative) LPF Urine Mucus (Negative) Ur Culture Indicated? Urine Glucose (Negative) mg/dL COVID-19 Source Nasal/nares Range/Units 08/23/20 08/23/20 13:45 15:26 WBC (4.4-10.8) 10^3/uL RBC (3.93-5.22) 10^6/uL Hgb (11.2-15.7) g/dL Hct (36.0-46.0) % MCV (80-95) fL MCH (27.0-33.0) pg MCHC (32.0-36.0) % RDW (11.7-14.6) % Plt Count (130-400) 10^3/uL MPV (8.0-11.0) fL Immature Gran % Neutrophils % Lymphocytes % Monocytes % Eosinophils % Basophils % Nucleated RBC % % Absolute Neutrophils (1.2-6.7) 10^3/uL Absolute Lymphocytes (1.2-3.4) 10^3/uL Absolute Monocytes (0.1-0.8) 10^3/uL Absolute Eosinophils (0.0-0.7) 10^3/uL Absolute Basophils (0.0-0.2) 10^3/uL PT (9.3-11.0) sec INR (0.9-1.1) APTT (21.0-27.5) sec Sodium (136-145) mmol/L Potassium (3.5-5.1) mmol/L Chloride (98-107) mmol/L Carbon Dioxide (21.0-32.0) mmol/L Anion Gap (3-11) mmol/L BUN (7-18) mg/dL Creatinine (0.55-1.02) mg/dL Estimated GFR/1.73 m2 (mL/min/1.73m2) Glucose (74-106) mg/dL Calcium (8.5-10.1) mg/dL Magnesium (1.8-2.4) mg/dL Total Bilirubin (0.2-1.0) mg/dL AST (15-37) U/L ALT (14-59) U/L Alkaline Phosphatase (46-116) U/L Troponin I (<0.06) ng/mL 0.17 H* NT-Pro-B Natriuret Pep (<300) pg/mL Total Protein (6.4-8.2) g/dL Albumin (3.4-5.0) g/dL TSH (0.36-3.74) uIU/mL Free T4 (0.76-1.46) ng/dL Urine Color (Yellow) Yellow Urine Clarity (Clear) Clear Urine pH (5-8) 7.0 Ur Specific [place] (1.005-1.025) 1.020 Urine Protein (Negative) mg/dL 100 H Urine Ketones (Negative) mg/dL Negative Urine Blood (Negative) Trace-intact H Urine Nitrite (Negative) Negative Urine Bilirubin (Negative) Negative Urine Urobilinogen (Up TO 0.2) EU/dL 0.2 Ur Leukocyte Esterase (Negative) Negative Urine RBC (0-2) HPF 0-2 Urine WBC (0-5) HPF 0-2 Ur Epithelial Cells (Negative) HPF Few Urine Crystals (Negative) HPF Negative Urine Bacteria (Negative) HPF Negative Urine Casts (Negative) LPF Negative Urine Mucus (Negative) Negative Ur Culture Indicated? No Urine Glucose (Negative) mg/dL Negative COVID-19 Source ECG Data Attestation: I personally reviewed and interpreted this ECG (s) as follows: Interpretation: #1 -- rate of 128, A. fib. #2 --Rate of 71, a flutter, ST depression/T wave inversions in lateral leads. No STEMI. HPI General Mode of arrival: ambulatory. Date/Time Provider Initiated Documentation: 08/23/20 12:08. Limitations to Documentation: no limitations. Information obtained by: patient. HPI Narrative: Patient is an 85-year-old female with a history of atrial fibrillation, CHF, coronary artery disease, NSTEMI, hypertension, diabetes presents for shortness of breath, fatigue and belching for the past week. Patient was seen at her primary care doctor's office last week for the same symptoms and started on diltiazem and furosemide. Patient went to the urgent care today for her symptoms and was noted to have a heart rate between 140s and 160s and was sent here for concern for atrial fibrillation. She denies any fever, chest pain, coughing, vomiting. She states she has been taking her medication as directed. Related Data Home Medications Medication Instructions Recorded Confirmed ascorbic acid (vitamin C) 2 tab PO DAILY PRN 07/15/12 08/23/20 multivitamin [Daily Multi-Vitamin] 1 tab PO DAILY 07/15/12 08/23/20 chromium picolinate 1,000 mcg PO daily prn 08/13/14 08/23/20 pen needle, diabetic 32 gauge x #100 each 04/17/19 08/23/20 aspirin 81 mg tablet,delayed 81 mg PO DAILY 06/20/19 08/23/20 release docusate sodium [Colace] 100 mg PO BID #60 cap 10/14/19 08/23/20 magnesium oxide 400 mg PO DAILY #10 tab 10/14/19 08/23/20 sennosides [Senokot] 1 tab PO BID PRN PRN #60 tab 10/14/19 08/23/20 furosemide 20 mg tablet 40 mg PO DAILY #180 tab-cap 12/25/19 08/23/20 acetaminophen 500 mg PO Q4H PRN PRN #0 cap 01/30/20 08/23/20 nitroglycerin 0.4 mg sublingual 0.4 mg SUBLINGUAL Q 5 MIN PRN #25 05/16/20 08/23/20 tablet tab-cap ketoconazole 2 % topical cream 1 applic TOPICAL QPM PRN gm 07/08/20 08/23/20 insulin degludec 100 unit/mL (3 18 unit SC QHS #15 ml 08/11/20 08/23/20 mL) subcutaneous pen lisinopril 5 mg tablet 5 mg PO HS #90 tab 08/11/20 08/23/20 pantoprazole 40 mg tablet,delayed 40 mg PO DAILY #90 tab-cap 08/11/20 08/23/20 release rosuvastatin 20 mg tablet 20 mg PO QPM #90 tab 08/11/20 08/23/20 warfarin 5 mg tablet 2.5 - 5 mg PO DAILY #60 tab 08/11/20 08/23/20 metoprolol succinate 200 mg 200 mg PO DAILY #90 tab 08/13/20 08/23/20 tablet,extended release 24 hr diltiazem HCl 120 mg capsule,24 120 mg PO QAM #30 cap 08/19/20 08/23/20 hr,extended release Previous Rx's Medication Instructions Recorded pen needle, diabetic 32 gauge x #100 each 04/17/19 docusate sodium [Colace] 100 mg PO BID #60 cap 10/14/19 magnesium oxide 400 mg PO DAILY #10 tab 10/14/19 sennosides [Senokot] 1 tab PO BID PRN PRN #60 tab 10/14/19 furosemide 20 mg tablet 40 mg PO DAILY #180 tab-cap 12/25/19 acetaminophen 500 mg PO Q4H PRN PRN #0 cap 01/30/20 nitroglycerin 0.4 mg sublingual 0.4 mg SUBLINGUAL Q 5 MIN PRN #25 05/16/20 tablet tab-cap insulin degludec 100 unit/mL (3 18 unit SC QHS #15 ml 08/11/20 mL) subcutaneous pen lisinopril 5 mg tablet 5 mg PO HS #90 tab 08/11/20 pantoprazole 40 mg tablet,delayed 40 mg PO DAILY #90 tab-cap 08/11/20 release rosuvastatin 20 mg tablet 20 mg PO QPM #90 tab 08/11/20 warfarin 5 mg tablet 2.5 - 5 mg PO DAILY #60 tab 08/11/20 metoprolol succinate 200 mg 200 mg PO DAILY #90 tab 08/13/20 tablet,extended release 24 hr diltiazem HCl 120 mg capsule,24 120 mg PO QAM #30 cap 08/19/20 hr,extended release Allergies Allergy/AdvReac Type Severity Reaction Status Date / Time Tetanus Vaccines and Toxoid Allergy Intermediate Verified 08/23/20 12:26 doxycycline AdvReac Severe GI UPSET Verified 08/23/20 12:26 verapamil AdvReac Severe dizziness Verified 08/23/20 12:26 doxazosin mesylate AdvReac Intermediate muscle Verified 08/23/20 12:26 [From Cardura] aches atenolol AdvReac Mild leg pain Verified 08/23/20 12:26 General GELA: 2 Review of Systems All systems reviewed & are unremarkable except as noted in HPI and below Constitutional Constitutional: Reports as per HPI, Denies chills and Denies fever(s) Eyes Eyes: Denies blurry vision ENT Ears, Nose, Mouth, and Throat: Denies dizziness, Denies sore throat and Denies throat swelling Cardiovascular Cardiovascular: Denies chest pain and Reports dyspnea Respiratory Respiratory: Denies cough and Reports dyspnea Gastrointestinal Gastrointestinal: Denies abdominal pain, Denies diarrhea and Denies vomiting Genitourinary Genitourinary: Denies hematuria and Denies dysuria Musculoskeletal Musculoskeletal: Denies back pain and Denies numbness Integumentary/Breasts Skin/Breast: Denies lesions and Denies rash Neurologic Neurologic: Denies dizziness, Denies localized weakness and Denies numbness Allergic/Immunologic Allergic/Immunologic: Denies throat swelling [facility] Medical History Acute on chronic systolic heart failure Arthritis ASCVD (arteriosclerotic cardiovascular disease) (04/22/15) [place] with out of hosp cardiac arrest LAD stent, LVEF 35% Atrial fibrillation (05/27/11) paroxysmal Oct 2009 Carpal tunnel syndrome on both sides s/p Left ECTR 01/30/2020 CHF (congestive heart failure) Chronic HFrEF (heart failure with reduced ejection fraction) Chronic low back pain Complementary medicine homeopathic primarily: DNI (do not intubate) DNR (do not resuscitate) Dyspnea Essential hypertension (01/04/13) echo 2007 LVH uncontrolled BP (neg w/u for pheo) Fatigue Foot drop, left GERD (gastroesophageal reflux disease) Goals of care, counseling/discussion Hyperlipidemia Hypertensive retinopathy Hyponatremia Impaired left ventricular function (~05/2019) [facility] [place]; 35% Leg length discrepancy Lives alone Low back pain Lumbar stenosis Mild obstructive sleep apnea (11/17/15) [facility] NSTEMI (non-ST elevated myocardial infarction) (~05/2019) [facility] [place] Palliative care patient Pedal edema POLST (Physician Orders for Life-Sustaining Treatment) Refusal of blood transfusions as patient is Hinduism Renal insufficiency Type II diabetes mellitus with complication, uncontrolled (05/14/14) Vaccine counseling encouraged her to take COVID-19 vaccine; unlikely she will Surgical History History of appendectomy History of carpal tunnel surgery of left wrist (01/30/20) History of right hip replacement Family History Brother Cancer Brother Cancer Leukemia Mother Asthma Sister Cancer Brother Dementia lives in SNF Son No problems noted. Son Paraplegic spinal paralysis motor vehicle crash Son No problems noted. Son No problems noted. Social History Smoking/Tobacco Use Status: Never Second Hand Exposure: No Smoking risk assessment performed?: Yes Alcohol Intake: never Drug use: Never Substance use type: does not use Caregiver/Support person: No Household members: none Housing: house Number of Children: 4 number of grandchildren: 5 Communication Needs: Corrective Lenses Education Level: high school Do you need help understanding health information?: Often current occupation: Retired Pets and animals: Yes (one cat, Fancy) Pets and animals: cat(s) Current gender identity: female What is your relationship status?: How often do you talk on the phone with friends or family?: three or more times per week How often do you get together with friends or relatives?: three or more times per week How often do you attend uatsdin or latter day services?: 4 or more times per year Panel score (0-1 are the most socially isolated patients): 2 What type of physical activity do you participate in: assisted ambulation Duration: 15-30 minutes/day Frequency: does not exercise Faviola/Episcopalian: Hinduism Special faviola needs: Yes (no transfusion) Agree to transfusion: No Seatbelt use: always Drive intox or ride w/intox motorcycle 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 Linda's family hires [employer] to help with housework mostly. Hip pain better since her surgery with Dr Stovall. Lately, her biggest health problem has been chronic dyspnea and low exercise tolerance. She would benefit from regular SN visits; Rio Pimentel RN from was supposed to visit today. I am concerned about her health. She appears worse than I have seen her since she was in acute pain in her hip prior to hip surgery. Exam Const General: cooperative and no acute distress Orientation: alert, awake and oriented x3 HENMT Head: normal to inspection Ears: hearing grossly normal bilaterally and external ears normal General nose exam: external nose normal Mouth: oral mucosae normal Teeth and gingiva: dentition normal Throat: posterior oropharynx normal Eyes General: appearance normal, both eyes and all related structures Eyelids: eyelids normal EOM: EOM intact bilaterally Neck Neck: normal visual inspection Lymphatic: no lymphadenopathy noted Chest Chest: normal inspection of the chest Resp Effort & Inspection: normal respiratory effort and able to speak in complete sentences Auscultation: clear to auscultation bilaterally Cardio Rate: tachycardic Rhythm: abnormal rhythm irregularly irregular GI Inspection: normal to inspection Palpation: soft, not firm, no guarding, no hepatosplenomegaly, no masses and nontender Auscultation: normal bowel sounds Skin General skin exam: no rashes or lesions noted Neuro General: patient alert and patient awake Cognition: normal cognition Speech: speech normal Gait: normal gait Motor: muscle tone normal throughout Sensory Exam: no sensory deficits noted Extrem General: normal to inspection, full ROM, capillary refill normal and no edema Psych Appearance: grossly normal Mental Status: mental status grossly normal Speech and Movement: speech and movement normal Affect: normal affect Thought Process: normal
[2020-08-23] MEDS: dilTIAZem 25 MG/5 ML VIAL 15 MG IVP (12:34)
[2020-08-23 12:42] LABS: Abs Immature Grans 0.02 10^3/uL (0.0-0.06); Absolute Basophil Count 0.07 10^3/uL (0.0-0.2); Absolute Eosinophil Count 0.14 10^3/uL (0.0-0.7); Absolute Lymphocyte Count 1.75 10^3/uL (1.2-3.4); Absolute Monocyte Count 0.74 10^3/uL (0.1-0.8); Absolute Neutrophil Count 6.61 10^3/uL (1.2-6.7); Basophils % 0.8; Eosinophils % 1.5; HCT 34.4 % (36.0-46.0); HGB 11.4 g/dL (11.2-15.7); Immature Grans % 0.2; Lymphocytes % 18.8; MCH 29.8 pg (27.0-33.0); MCHC 33.1 % (32.0-36.0); MCV 89.8 fL (80-95); MPV 13.4 fL (8.0-11.0); Monocytes % 7.9; Neutrophils % 70.8; Nucleated RBC 0 %; Platelet Count 160 10^3/uL (130-400); RBC 3.83 10^6/uL (3.93-5.22); RDW-SD 46.1 fL; WBC 9.33 10^3/uL (4.4-10.8)
[2020-08-23 12:51] LABS: PTT Activated 34.9 sec (21.0-27.5); Prothrombin Time 27.9 sec (9.3-11.0)
[2020-08-23 12:54] LABS: ALT 49 U/L (14-59); AST 36 U/L (15-37); Albumin 3.3 g/dL (3.4-5.0); Alkaline Phosphatase 101 U/L (46-116); Anion Gap 5.2 mmol/L (3-11); BUN 33 mg/dL (7-18); Bilirubin, Total 0.4 mg/dL (0.2-1.0); CO2 28.8 mmol/L (21.0-32.0); CREATININE 1.6 mg/dL (0.55-1.02); Calcium 8.7 mg/dL (8.5-10.1); Chloride 99 mmol/L (98-107); Estimated GFR 30.71 (mL/min/1.73m2); Glucose 159 mg/dL (74-106); INR 2.8 (0.9-1.1); Magnesium 2.2 mg/dL (1.8-2.4); Potassium 3.4 mmol/L (3.5-5.1); Sodium 133 mmol/L (136-145)
[2020-08-23 12:59] LABS: Troponin I 0.18 ng/mL (<0.06)
[2020-08-23 13:00] LABS: NT-proBNP 6827 pg/mL (<300)
--- NOTE | 2020-08-23 13:15 | RT.EKG_ITS ---
APPROVED REPORT Exam: Resting ECG Reason for Exam: shortness of breath, r/o acute disease Patient Location: E HR:71 bpm ECG Measurements Heart Rate 71 AXIS MS [id number] P [id number] QRSd 147 QRS -31 QT 439 T 137 QTc 479 Conclusion Atrial flutter with predominant 4:1 AV block...A-rate 294, multiple Ps IVCD, consider RBBB...QRSd>120mS, terminal axis(90,270) LVH with secondary repolarization abnormality...multi-LVH criteria, abnrm ST-T I have reviewed and interpreted ECG and agree with software generated interpretation.
[2020-08-23 13:41] LABS: Source Nasal/Nares
[2020-08-23 13:51] LABS: Bilirubin Negative (Negative); Blood Trace-intact (Negative); Clarity Clear (Clear); Glucose Negative (Negative); Ketones Negative (Negative); Leukocyte Esterase Negative (Negative); Nitrite Negative (Negative); Urobilinogen 0.2 EU/dL (Up TO 0.2)
--- NOTE | 2020-08-23 13:51 | DI.VRAD_ITS ---
PROCEDURE INFORMATION: Exam: XR Chest Exam date and time: 08/23/2020 12:20 PM Age: 85 years old Clinical indication: Shortness of breath TECHNIQUE: Imaging protocol: XR of the chest. Views: 2 views. COMPARISON: CR XR CHEST 2V PA LATERAL 05/07/2020 11:38 AM FINDINGS: Lungs: Unremarkable. No consolidation. Pleural spaces: Unremarkable. No pleural effusion. No pneumothorax. Heart/Mediastinum: Unremarkable. No cardiomegaly. Bones/joints: No acute osseous abnormality. IMPRESSION: No acute findings. Dictated and Authenticated by: Marshal Baker MD. Ordering:MATY Grant MD
[2020-08-23 13:58] LABS: Bacteria Negative HPF (Negative); C & S Indicated? No; Casts Negative LPF (Negative); Crystals Negative HPF (Negative); Epithelial Cells Few HPF (Negative); Mucus Negative (Negative); RBC 0-2 HPF (0-2); WBC 0-2 HPF (0-5)
[2020-08-23 15:56] LABS: Troponin I 0.17 ng/mL (<0.06)
--- NOTE | 2020-08-23 16:29 | HPE_ITS ---
Date of service: 08/23/20 Time of Service: 16:29 Assessment and Plan Assessment and plan (1) Atrial fibrillation with rapid ventricular response: Start date: 08/23/20 Start time: 16:55 Status: Acute Assessment and plan: Patient is now in rate controlled afib. She states she no longer has SOB or CP Will admit to m/s teley on cardizem 60 mg q 6 hours daily wts repeat trop this pm and again in am On Coumadin for afib INR 2.8 continue to follow INR (2) Elevated troponin: Start date: 08/23/20 Start time: 16:56 Status: Acute Assessment and plan: Likely due to demand elevated at 0.18 now trending down will trend through the am (3) CHF (congestive heart failure): Start date: 08/23/20 Start time: 16:57 Status: Chronic Assessment and plan: BNP over 6,000 will give 80 iVP lasix, continue home dose as well Repeat in am (4) Diabetes mellitus: Start date: 08/23/20 Start time: 16:59 Status: Chronic Assessment and plan: SSI with finger sticks. Continue tresiba (5) CKD (chronic kidney disease), stage II: Start date: 08/23/20 Start time: 17:01 Status: Chronic Assessment and plan: at baseline repeat labs in am (6) Hypertension: Start date: 08/23/20 Start time: 17:02 Status: Chronic Assessment and plan: continue home medication and monitor bp Qualifiers: Hypertension type: essential hypertension (7) Discharge planning issues: Start date: 08/23/20 Start time: 17:02 Status: Acute Assessment and plan: Home when medically ready. DNR/DNI above discussed with Dr. Finley History of Present Illness History of Present Illness Chief Complaint: Afib, Elevated trop, volume overload Narrative: 85 y.o female with PMH of Afib on coumadin, CHF, HTN, NSTEMI, Diabetes presents to [facility] with SOB, fatigue and belching x 1 week. On arrival EKG done revealed afib with HR 120's though she was comfortable. She was given 15 mg dilt in ED and converted to SR. Labs in the ED revealing sodium 133, K 3.4, creatinine 1.66 bun 34, bnp 6827 trop 0.18 with second trop 0.17, mag 2.2, otherwise unremarkable. Cxr with no acute findings. She has been asked to be admitted to hospital medicine for further management. She will be obs. Given IVP lasix, on teley. Dilt 60 q 6 hours in addition to BB, daily wts, I/O. INR 2.8, continue coumadin. Repeat trop this evening and in am. Review of Systems All systems reviewed & are unremarkable except as noted in HPI and below [facility] Medical History Acute on chronic systolic heart failure Arthritis ASCVD (arteriosclerotic cardiovascular disease) (04/22/15) [place] with out of hosp cardiac arrest LAD stent, LVEF 35% Atrial fibrillation (05/27/11) paroxysmal Oct 2009 Carpal tunnel syndrome on both sides s/p Left ECTR 01/30/2020 CHF (congestive heart failure) Chronic HFrEF (heart failure with reduced ejection fraction) Chronic low back pain Complementary medicine homeopathic primarily: DNI (do not intubate) DNR (do not resuscitate) Dyspnea Essential hypertension (01/04/13) echo 2007 [facility] uncontrolled BP (neg w/u for pheo) Fatigue Foot drop, left GERD (gastroesophageal reflux disease) Goals of care, counseling/discussion Hyperlipidemia Hypertensive retinopathy Hyponatremia Impaired left ventricular function (~05/2019) [facility] [place]; 35% Leg length discrepancy Lives alone Low back pain Lumbar stenosis Mild obstructive sleep apnea (11/17/15) [facility] NSTEMI (non-ST elevated myocardial infarction) (~05/2019) [facility] [place] Palliative care patient Pedal edema POLST (Physician Orders for Life-Sustaining Treatment) Refusal of blood transfusions as patient is Uatsdin Renal insufficiency Type II diabetes mellitus with complication, uncontrolled (05/14/14) Vaccine counseling encouraged her to take COVID-19 vaccine; unlikely she will Surgical History History of appendectomy History of carpal tunnel surgery of left wrist (01/30/20) History of right hip replacement Family History Brother Cancer Brother Cancer Leukemia Mother Asthma Sister Cancer Brother Dementia lives in SNF Son No problems noted. Son Paraplegic spinal paralysis motor vehicle crash Son No problems noted. Son No problems noted. Social History Smoking/Tobacco Use Status: Never Second Hand Exposure: No Smoking risk assessment performed?: Yes Alcohol Intake: never Drug use: Never Substance use type: does not use Caregiver/Support person: No Household members: none Housing: house Number of Children: 4 number of grandchildren: 5 Communication Needs: Corrective Lenses Education Level: high school Do you need help understanding health information?: Often current occupation: Retired Pets and animals: Yes (one cat, Fancy) Pets and animals: cat(s) Current gender identity: female What is your relationship status?: How often do you talk on the phone with friends or family?: three or more times per week How often do you get together with friends or relatives?: three or more times per week How often do you attend orthodoxy or confucianist services?: 4 or more times per year Panel score (0-1 are the most socially isolated patients): 2 What type of physical activity do you participate in: assisted ambulation Duration: 15-30 minutes/day Frequency: does not exercise Faviola/Mandaeism: Uatsdin Special faviola needs: Yes (no transfusion) Agree to transfusion: No Seatbelt use: always Drive intox or ride w/intox cdl b 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 Linda's family hires [employer] to help with housework mostly. Hip pain better since her surgery with Dr Stovall. Lately, her biggest health problem has been chronic dyspnea and low exercise tolerance. She would benefit from regular SN visits; Rio Pimentel RN from was supposed to visit today. I am concerned about her health. She appears worse than I have seen her since she was in acute pain in her hip prior to hip surgery. Meds Allergies and Home Medications Allergies Allergy/AdvReac Type Severity Reaction Status Date / Time Tetanus Vaccines and Toxoid Allergy Intermediate Verified 08/23/20 12:26 doxycycline AdvReac Severe GI UPSET Verified 08/23/20 12:26 verapamil AdvReac Severe dizziness Verified 08/23/20 12:26 doxazosin mesylate AdvReac Intermediate muscle Verified 08/23/20 12:26 [From Cardura] aches atenolol AdvReac Mild leg pain Verified 08/23/20 12:26 Home Medications Medication Instructions Recorded Confirmed Type ascorbic acid (vitamin C) 2 tab PO DAILY PRN 07/15/12 08/23/20 History multivitamin [Daily Multi-Vitamin] 1 tab PO DAILY 07/15/12 08/23/20 History chromium picolinate 1,000 mcg PO daily prn 08/13/14 08/23/20 History pen needle, diabetic 32 gauge x #100 each 04/17/19 08/23/20 Rx aspirin 81 mg tablet,delayed 81 mg PO DAILY 06/20/19 08/23/20 History release docusate sodium [Colace] 100 mg PO BID #60 cap 10/14/19 08/23/20 Rx magnesium oxide 400 mg PO DAILY #10 tab 10/14/19 08/23/20 Rx sennosides [Senokot] 1 tab PO BID PRN PRN #60 tab 10/14/19 08/23/20 Rx furosemide 20 mg tablet 40 mg PO DAILY #180 tab-cap 12/25/19 08/23/20 Rx acetaminophen 500 mg PO Q4H PRN PRN #0 cap 01/30/20 08/23/20 Rx nitroglycerin 0.4 mg sublingual 0.4 mg SUBLINGUAL Q 5 MIN PRN #25 05/16/20 08/23/20 Rx tablet tab-cap ketoconazole 2 % topical cream 1 applic TOPICAL QPM PRN gm 07/08/20 08/23/20 History insulin degludec 100 unit/mL (3 18 unit SC QHS #15 ml 08/11/20 08/23/20 Rx mL) subcutaneous pen lisinopril 5 mg tablet 5 mg PO HS #90 tab 08/11/20 08/23/20 Rx pantoprazole 40 mg tablet,delayed 40 mg PO DAILY #90 tab-cap 08/11/20 08/23/20 Rx release rosuvastatin 20 mg tablet 20 mg PO QPM #90 tab 08/11/20 08/23/20 Rx warfarin 5 mg tablet 2.5 - 5 mg PO DAILY #60 tab 08/11/20 08/23/20 Rx metoprolol succinate 200 mg 200 mg PO DAILY #90 tab 08/13/20 08/23/20 Rx tablet,extended release 24 hr diltiazem HCl 120 mg capsule,24 120 mg PO QAM #30 cap 08/19/20 08/23/20 Rx hr,extended release Exam Const General: cooperative, comfortable and no acute distress Orientation: alert, awake and oriented x3 [facility] Head: normocephalic and atraumatic Mouth: oral mucosae normal and moist mucous membranes Eyes General: appearance normal, both eyes and all related structures Eyelids: eyelids normal Conjunctivae: conjunctivae normal Sclera: sclerae normal Pupils: PERRL EOM: EOM intact bilaterally Neck Neck: normal visual inspection, full ROM and no JVD Thyroid: thyroid normal Lymphatic: no lymphadenopathy noted Chest Chest: normal inspection of the chest Resp Effort & Inspection: normal respiratory effort and able to speak in complete sentences Auscultation: clear to auscultation bilaterally Cardio Jugular venous pressure: no JVD Rate: regular rate Rhythm: abnormal rhythm irregularly irregular GI Inspection: normal to inspection Palpation: soft and no hepatosplenomegaly Percussion: normal to percussion General: No CVA tenderness and deferred Back/Spine/Pelvis Back: no CVA tenderness Skin General skin exam: no rashes or lesions noted Neuro General: patient alert, patient awake and patient oriented x3 Cognition: normal cognition Speech: speech normal Extrem General: abnormal to inspection, full ROM, pedal edema present and edema Laterality: bilateral Right lower extremity: edema Details: pitting and 3+ Left lower extremity: normal to inspection and edema Details: pitting and 3+ Psych Appearance: grossly normal Mental Status: mental status grossly normal Speech and Movement: speech and movement normal Mood: congruent mood Affect: normal affect Results Labs Result diagrams: 08/23/20 12:25 08/23/20 12:25 Labs: Laboratory Results - last 24 hr 08/23/20 08/23/20 08/23/20 12:25 12:25 12:25 WBC 9.33 RBC 3.83 L Hgb 11.4 Hct 34.4 L MCV 89.8 MCH 29.8 MCHC 33.1 RDW 14.0 Plt Count 160 MPV 13.4 H Immature Gran % 0.2 Neutrophils % 70.8 Lymphocytes % 18.8 Monocytes % 7.9 Eosinophils % 1.5 Basophils % 0.8 Nucleated RBC % 0 Absolute Neutrophils 6.61 Absolute Lymphocytes 1.75 Absolute Monocytes 0.74 Absolute Eosinophils 0.14 Absolute Basophils 0.07 PT 27.9 H INR 2.8 H APTT 34.9 H Sodium 133 L Potassium 3.4 L Chloride 99 Carbon Dioxide 28.8 Anion Gap 5.2 BUN 33 H Creatinine 1.6 H Estimated GFR/1.73 m2 30.71 Glucose 159 H Calcium 8.7 Magnesium 2.2 Total Bilirubin 0.4 AST 36 ALT 49 Alkaline Phosphatase 101 Troponin I 0.18 H* NT-Pro-B Natriuret Pep Total Protein 7.0 Albumin 3.3 L Urine Color Urine Clarity Urine pH Ur Specific [place] Urine Protein Urine Ketones Urine Blood Urine Nitrite Urine Bilirubin Urine Urobilinogen Ur Leukocyte Esterase Urine RBC Urine WBC Ur Epithelial Cells Urine Crystals Urine Bacteria Urine Casts Urine Mucus Ur Culture Indicated? Urine Glucose COVID-19 Source 08/23/20 08/23/20 08/23/20 12:25 13:32 13:45 WBC RBC Hgb Hct MCV MCH MCHC RDW Plt Count MPV Immature Gran % Neutrophils % Lymphocytes % Monocytes % Eosinophils % Basophils % Nucleated RBC % Absolute Neutrophils Absolute Lymphocytes Absolute Monocytes Absolute Eosinophils Absolute Basophils PT INR APTT Sodium Potassium Chloride Carbon Dioxide Anion Gap BUN Creatinine Estimated GFR/1.73 m2 Glucose Calcium Magnesium Total Bilirubin AST ALT Alkaline Phosphatase Troponin I NT-Pro-B Natriuret Pep 6827 H Total Protein Albumin Urine Color Yellow Urine Clarity Clear Urine pH 7.0 Ur Specific [place] 1.020 Urine Protein 100 H Urine Ketones Negative Urine Blood Trace-intact H Urine Nitrite Negative Urine Bilirubin Negative Urine Urobilinogen 0.2 Ur Leukocyte Esterase Negative Urine RBC 0-2 Urine WBC 0-2 Ur Epithelial Cells Few Urine Crystals Negative Urine Bacteria Negative Urine Casts Negative Urine Mucus Negative Ur Culture Indicated? No Urine Glucose Negative COVID-19 Source Nasal/nares 08/23/20 15:26 WBC RBC Hgb Hct MCV MCH MCHC RDW Plt Count MPV Immature Gran % Neutrophils % Lymphocytes % Monocytes % Eosinophils % Basophils % Nucleated RBC % Absolute Neutrophils Absolute Lymphocytes Absolute Monocytes Absolute Eosinophils Absolute Basophils PT INR APTT Sodium Potassium Chloride Carbon Dioxide Anion Gap BUN Creatinine Estimated GFR/1.73 m2 Glucose Calcium Magnesium Total Bilirubin AST ALT Alkaline Phosphatase Troponin I 0.17 H* NT-Pro-B Natriuret Pep Total Protein Albumin Urine Color Urine Clarity Urine pH Ur Specific [place] Urine Protein Urine Ketones Urine Blood Urine Nitrite Urine Bilirubin Urine Urobilinogen Ur Leukocyte Esterase Urine RBC Urine WBC Ur Epithelial Cells Urine Crystals Urine Bacteria Urine Casts Urine Mucus Ur Culture Indicated? Urine Glucose COVID-19 Source Last Vital Signs Temp 37.1 C 08/23/20 12:20 Pulse 70 08/23/20 16:02 Resp 17 08/23/20 16:02 BP 165/90 H 08/23/20 16:02 Pulse Ox 98 08/23/20 16:02 COVID-19 Screening Have you, or household traveled for leisure in last 14 days?: No Had IN PERSON contact w/suspected or confirmed C-19 person: No
[2020-08-23 17:20] LABS: FREE T4 1.41 ng/dL (0.76-1.46); TSH 6.53 uIU/mL (0.36-3.74)
[2020-08-23] MEDS: Insulin Aspart 300 UNITS/3 ML PEN SC (18:28)
[2020-08-23] MEDS: Normal Saline Flush 10 ML SYR IVP (18:28)
[2020-08-23] MEDS: Furosemide 100 MG/10 ML VIAL 80 MG IVP (18:28)
[2020-08-23] MEDS: Potassium Chloride 20 MEQ TABCR 40 MEQ PO (18:29)
[2020-08-23] MEDS: dilTIAZem 60 MG TAB PO ×2 (18:29→23:48)
[2020-08-23 19:47] LABS: Troponin I 0.17 ng/mL (<0.06)
[2020-08-23] MEDS: Rosuvastatin 10 MG TAB 20 MG PO (20:43)
[2020-08-23] MEDS: Warfarin 5 MG TAB PO (20:43)
[2020-08-23] MEDS: Lisinopril 5 MG TAB PO (21:44)
[2020-08-24] VITALS (9 sets, daily range): BP systolic 106–144; BP diastolic 63–80; PULSE 66–103; RESP 17–19; TEMP 36.4–36.8; O2SAT 94–98
[2020-08-24] MEDS: dilTIAZem 60 MG TAB PO ×4 (05:43→23:21)
[2020-08-24 07:37] LABS: Abs Immature Grans 0.01 10^3/uL (0.0-0.06); Absolute Basophil Count 0.07 10^3/uL (0.0-0.2); Absolute Eosinophil Count 0.16 10^3/uL (0.0-0.7); Absolute Lymphocyte Count 2.36 10^3/uL (1.2-3.4); Absolute Monocyte Count 0.82 10^3/uL (0.1-0.8); Absolute Neutrophil Count 4.22 10^3/uL (1.2-6.7); Basophils % 0.9; Eosinophils % 2.1; HCT 34.5 % (36.0-46.0); HGB 11.3 g/dL (11.2-15.7); Immature Grans % 0.1; Lymphocytes % 30.9; MCH 29.7 pg (27.0-33.0); MCHC 32.8 % (32.0-36.0); MCV 90.6 fL (80-95); Monocytes % 10.7; Neutrophils % 55.3; Nucleated RBC 0 %; RBC 3.81 10^6/uL (3.93-5.22); RDW 14.2 % (11.7-14.6); RDW-SD 46.8 fL; WBC 7.64 10^3/uL (4.4-10.8)
[2020-08-24 07:47] LABS: Prothrombin Time 29.7 sec (9.3-11.0)
[2020-08-24 07:55] LABS: Diff Comment Diff Reviewed; Platelet Count 164 10^3/uL (130-400); RBC Morphology Normal
[2020-08-24] MEDS: Metoprolol CR 100 MG TABCR 200 MG PO (07:55)
[2020-08-24] MEDS: Furosemide 20 MG TAB 40 MG PO (07:55)
[2020-08-24] MEDS: Pantoprazole 40 MG TABCR PO (07:55)
[2020-08-24] MEDS: Aspirin E.C. 81 MG TABEC PO (07:55)
[2020-08-24 08:03] LABS: Troponin I 0.16 ng/mL (<0.06)
[2020-08-24 08:07] LABS: Anion Gap 7.9 mmol/L (3-11); BUN 30 mg/dL (7-18); CO2 30.1 mmol/L (21.0-32.0); CREATININE 1.6 mg/dL (0.55-1.02); Calcium 8.6 mg/dL (8.5-10.1); Chloride 103 mmol/L (98-107); Estimated GFR 30.71 (mL/min/1.73m2); Hemoglobin A1C 8.4 % (<5.7); Magnesium 2.2 mg/dL (1.8-2.4); NT-proBNP 6258 pg/mL (<300); Potassium 3.3 mmol/L (3.5-5.1); Sodium 141 mmol/L (136-145)
[2020-08-24 08:14] LABS: Glucose 62 mg/dL (74-106)
[2020-08-24] MEDS: Potassium Chloride 10 MEQ CAPCR 40 MEQ PO (10:27)
[2020-08-24] MEDS: Normal Saline Flush 10 ML SYR IVP ×3 (10:28→19:54)
[2020-08-24] MEDS: Furosemide 100 MG/10 ML VIAL 80 MG IVP ×2 (10:28→10:40)
--- NOTE | 2020-08-24 11:03 | INITIAL_ITS ---
- If Service Date Differs Date of service: 08/24/20 Time of Service: 11:03 Care Management Initial Assess REASON FOR HOSPITALIZATION:: AFIB, elevated troponins, and volume overload. PAST MEDICAL HISTORY/PAST SURGICAL HISTORY:: Medical History: Acute on chronic systolic heart failure, Arthritis,. ASCVD (arteriosclerotic cardiovascular disease) (04/22/15) - [place] with out of hosp cardiac arrest - LAD stent, LVEF 35%, Atrial fibrillation (05/27/11) -. paroxysmal Oct 2009, Carpal tunnel syndrome on both sides - s/p Left ECTR 01/30/2020, CHF (congestive heart failure), Chronic HFrEF (heart failure with reduced ejection fraction), Chronic low back pain, Complementary medicine - homeopathic primarily, DNI (do not intubate),. DNR (do not resuscitate), Dyspnea, Essential hypertension (01/04/13) -. echo 2007 [facility] - uncontrolled BP (neg w/u for pheo), Fatigue, Foot drop, left, GERD (gastroesophageal reflux disease), Goals of care, counseling/discussion, Hyperlipidemia, Hypertensive retinopathy, Hyponatremia, Impaired left ventricular function (~05/2019) - [facility] [place]; 35%, Leg length discrepancy, Lives alone, Low back pain, Lumbar stenosis,. Mild obstructive sleep apnea (11/17/15) - [facility], NSTEMI (non-ST elevated myocardial infarction) (~05/2019) - [facility] [place], P alliative care patient, Pedal edema, POLST (Physician Orders for Life-Sustaining Treatment), Refusal of blood transfusions as patient is Orthodoxy, Renal insufficiency,. Type II diabetes mellitus with complication, uncontrolled (05/14/14), and. Vaccine counseling - encouraged her to take COVID-19 vaccine; unlikely she will. Surgical History: History of appendectomy, History of carpal tunnel surgery of left wrist (01/30/20), and History of right hip replacement. PREVIOUS FUNCTIONAL STATUS/SOCIAL/FAMILY SUPPORTS:: Linda lives alone with her cat in [place], [place]. She has four adult sons, three who live locally and one who resides out of state in [place]. She also has one sister and two brothers who live in the area. She is a Orthodoxy and has numerous friends through her pentecostal. Linda no longer drives but she remains independent with her ADLs at baseline. She enjoys watching television, reading, playing solitaire on her IPad, and talking to friends and family on the telephone. CURRENT FUNCTIONAL STATUS:: Linda is sitting up in bed when CM comes to meet with her. She is pleasant and easily engages in conversation. She talks about her arsenio, her family, and shares that her son obtained his ship pilot's license approximately 3 years ago. CM will continue to follow. ADVANCE DIRECTIVES:: COLST on file; son Robert Bautista is appointed at [facility]. Has patient been provided with info about the portal/API?: Yes Did the patient sign up for the portal?: No CODE STATUS:: DNR/DNI INSURANCE COVERAGE / FINANCIAL ISSUES:: [employer] and Medicare. CURRENT HOME/COMMUNITY SERVICES/EQUIPMENT:: Linda has a privately paid housekeeper nanny who comes to her home twice a week (Tuesdays and ), takes her grocery shopping, and drives her to doctor's appointments. Linda owns a walker with a seat, which she uses to ambulate at home. She also has a shower seat, grab bars in the bathroom, and a life line alert. PRIMARY CARE PHYSICIAN:: Rad Yeh MD. POTENTIAL DISCHARGE NEEDS:: Follow up appointments with PCP and hedis nurse and discharge plan of care. PATIENT/FAMILY EDUCATION NEEDS:: Discharge instructions, limitations, follow up plan including Ask Me Three and self management. ANTICIPATED BARRIERS TO DISCHARGE:: None anticipated at this time. TRANSPORTATION:: Via private vehicle with family. PLAN:: Anticipate Linda will be discharged home when medically cleared by provider. She will follow up with her PCP and discharge plan of care as directed. She will be driven home by family via private vehicle when ready. CM will continue to support patient and assess for discharge planning needs.
--- NOTE | 2020-08-24 11:11 | IN_ITS ---
Date of service: 08/24/20 Time of Service: 11:11 PT Notes Visit Reasons: AFIB, ELEVATED TROPS, VOLUME OVERLOAD Physical Therapy Inpatient Initial Evaluation Date: 08/24/2020 Referring Doctor: Rachael Carlton NP PT Orders: PT CONSULT: Eval/treat. Precautions: Fall. Standard. Activity as tolerated. Patient Profile/Admitting Diagnosis: Linda is an 85-year-old female who presented to the ED on 08/23/2020 with shortness of breath, fatigue, belching and that have been ongoing for 1 week preceding admission. Patient is diagnosed with atrial fibrillation with rapid ventricular response, elevated troponin, congestive heart failure, diabetes mellitus, stage II chronic kidney disease, and hypertension. PMHX: Medical History Acute on chronic systolic heart failure Arthritis ASCVD (arteriosclerotic cardiovascular disease) (04/22/15) PR with out of hosp cardiac arrest LAD stent, LVEF 35% Atrial fibrillation (05/27/11) paroxysmal Oct 2009 Carpal tunnel syndrome on both sides s/p Left ECTR 01/30/2020 CHF (congestive heart failure) Chronic HFrEF (heart failure with reduced ejection fraction) Chronic low back pain Complementary medicine homeopathic primarily: DNI (do not intubate) DNR (do not resuscitate) Dyspnea Essential hypertension (01/04/13) echo 2007 LVH uncontrolled BP (neg w/u for pheo) Fatigue Foot drop, left GERD (gastroesophageal reflux disease) Goals of care, counseling/discussion Hyperlipidemia Hypertensive retinopathy Hyponatremia Impaired left ventricular function [place]05/2019[place] [facility] [place] Leg length discrepancy Lives alone Low back pain Lumbar stenosis Mild obstructive sleep apnea (11/17/15) [facility] NSTEMI (non-ST elevated myocardial infarction) (~05/2019[place] [facility] [place] Pedal edema POLST (Physician Orders for Life-Sustaining Treatment) Refusal of blood transfusions as patient is Taoism Renal insufficiency Type II diabetes mellitus with complication, uncontrolled (05/14/14) Vaccine counseling encouraged her to take COVID-19 vaccine; unlikely she will Surgical History History of appendectomy History of carpal tunnel surgery of left wrist (11/04/20) History of right hip replacement Social History/Home Situation: Linda lives alone in a private home with a ramp to enter. She was independent with a 4-wheeled walker for all mobility ADL performance. She now cooks her own meals, previously was receiving Meals on Wheels. A lady comes in twice a week for 6 hours each time to help with split leather mosser, laundry, grocery shopping and errands. Equipment Owned/DME: [employer] Subjective: Denies belching is mildly fatigued and minimally short of breath. Denies chest pain, headache, and dizziness throughout session. Agreeable to home health PT once discharged to home. Objective: General Observation: Telemetry monitoring in place. Edema noted to bilateral legs with the right more than the left. Mental Status: Alert and oriented x4 Pain: None reported ROM: Right Upper Extremity: Shoulder Flexion WFL. Shoulder abduction WFL. Elbow flexion WFL. Wrist flexion WFL. Functional opening and closing of hand WFL. Left Upper Extremity: Shoulder Flexion WFL. Shoulder abduction WFL. Elbow flexion WFL. Wrist flexion WFL. Functional opening and closing of hand WFL. Right Lower Extremity: Hip flexion WFL. Hip abduction WFL. Knee flexion WFL. Ankle dorsiflexion WFL. Ankle plantarflexion WFL. Left Lower Extremity: Hip flexion WFL. Hip abduction WFL. Knee flexion WFL. Ankle dorsiflexion WFL. Ankle plantarflexion WFL. Strength: Right Upper Extremity: Shoulder flexors 5/5. Shoulder abductors 5/5. Elbow flexors 5/5. Elbow extensors 5/5. [employer] strong. Left Upper Extremity: Shoulder flexors 5/5. Shoulder abductors 5/5. Elbow flexors 5/5. Elbow extensors 5/5. [employer] strong. Right Lower Extremity: Hip flexors 4-/5. Hip abductors 4-/5. Knee flexors 4/5. Knee extensors 4-/5. Ankle dorsiflexors 4-/5. Ankle plantarflexors 4-/5. Left Lower Extremity: Hip flexors 4-/5. Hip abductors 4-/5. Knee flexors 4/5. Knee extensors 4-/5. Ankle dorsiflexors 4-/5. Ankle plantarflexors 4-/5. Sensation: Intact as to pain and pressure on bilateral lower extremities. Bed Mobility/Transfers: Supine to sit independent Sit to stand independent Stand to sit independent Bed to chair supervision Chair to bed supervision Gait: Linda tolerated level surface ambulation of 200 feet using the 4?wheeled walker with FWB on BLE. Increasing time on the left side. Increase trunk flexion. Denies headache, chest pain, and dizziness throughout ambulation activity. Balance: Static Sitting: Normal Dynamic Sitting: Normal Static Standing: Fair Dynamic Standing: Fair Special Tests: Mobility Limitations Standardized Measure [facility] 6 clicks Basic Mobility Inpatient Short Form: Raw Score: 23 CMS Score: 11% deficit Informed Consent/Education: Patient instructed in purpose of PT consult and plan of care. Assessment: Minimally short of breath after level surface ambulation using 4- wheeled walker, resolved with rest. Anne-Marie demonstrates decreased activity tolerance, generalized weakness, and increased risk for falls due to admitting diagnoses and will benefit from physical therapy services to increase ability to return home when medically cleared by hospitalist. Patient presents with clinical signs and symptoms consistent with current/admitting diagnoses that have resulted to mobility limitations, gait instability, generalized weakness, and impairment of motor control as demonstrated by the following impairment level findings: 1. Decreased strength to BLE major muscle groups 2. Impaired standing balance 3. Impaired activity tolerance Impairments are contributing to the following functional limitations: 1. Inability to safely ambulate without assistive device 2. Increase completion time for mobility ADL performance 3. Increased fall risk Patient is assessed as a 55765 moderate complexity based on the following: History: 84-year-old female with impairment level findings, functional limitations, and past medical history as indicated above Examination: Demonstrable impairment in strength, balance, and mobility level with underlying impairments and functional limitations as documented above Presentation: Evolving Decision Makin moderate complexity Goals: Goals X1 week 1. Bed-Chair independent independent 2. Chair-Bed standby assist 3. Independent gait on level surface with use of least restrictive device for at least 50 feet without report of pain nor dyspnea 4. Good static and dynamic standing balance/tolerance Plan of Care/Treatment Plan: 1-2x/day, 7 days/week x 1 week. Plan of care has been reviewed with the SALES TEAM MEMBER providing the service under Physical Therapy direction. Initiate Physical Therapy intervention for strengthening, bed mobility, transfers, gait, stairs, balance training, use of assistive device. DISCHARGE RECOMMENDATIONS: Patient will benefit from home health PT services in order to progress mobility level using least restrictive assistive ambulatory device, assess home safety, identify additional equipment needs, and establish a functional maintenance program that will increase ability of patient to remain at home. TREATMENT CODE/TIME: 26821 x 2 minutes, 49710 x 12 minutes beginning at 11:11 AM. Thank you for the opportunity to participate in the care of this patient. Alix Hannah PT, DPT, CLT [facility] [place], [place]
[2020-08-24] MEDS: Insulin Aspart 300 UNITS/3 ML PEN SC ×2 (12:39→16:55)
--- NOTE | 2020-08-24 13:34 | W.PM.PROGNOT ---
Date of Service Date of service: 08/24/20 Time of Service: 13:36 Assessment and Plan Assessment and plan (1) Atrial fibrillation with rapid ventricular response: Start date: 08/24/20 Start time: 13:41 Status: Acute Assessment and plan: Rate controlled on Afib with 60 mg po q 6 hr Down 2 kgs. Repeat trop is down 0.16 INR is 3.0 continue coumadin (2) Elevated troponin: Start date: 08/24/20 Start time: 13:44 Status: Acute Assessment and plan: Likely due to demand trending down to 0.16 (3) CHF (congestive heart failure): Start date: 08/24/20 Start time: 13:44 Status: Chronic Assessment and plan: BNP over 6,000 will give 80 iVP lasix, continue home dose as well improving. as above (4) Diabetes mellitus: Start date: 08/24/20 Start time: 13:44 Status: Chronic Assessment and plan: SSI with finger sticks. She did have hypoglycemic episode this am tresiba changed to 8 units from 18 and will monitor fingersticks (5) CKD (chronic kidney disease), stage II: Start date: 08/24/20 Start time: 13:46 Status: Chronic Assessment and plan: at baseline (6) Hypertension: Start date: 08/24/20 Start time: 13:54 Status: Chronic Assessment and plan: continue home medication and monitor bp Qualifiers: Hypertension type: essential hypertension (7) Discharge planning issues: Status: Acute Assessment and plan: Home when medically ready. DNR/DNI above discussed with Dr. Finley Subjective Subjective Patient reports: feels better Interval history since last seen: She feels better, HR has been controlled. Her edema is improved as well. She would benefit from another night of IV lasix. she is agreeable. She denies CP, SOB, N/V/D. Exam Const General: cooperative, comfortable and no acute distress Orientation: alert, awake and oriented x3 HENMT Head: normocephalic and atraumatic Mouth: oral mucosae normal and moist mucous membranes Eyes General: appearance normal, both eyes and all related structures Eyelids: eyelids normal Conjunctivae: conjunctivae normal Sclera: sclerae normal Pupils: PERRL EOM: EOM intact bilaterally Neck Neck: normal visual inspection, full ROM and no JVD Thyroid: thyroid normal Lymphatic: no lymphadenopathy noted Chest Chest: normal inspection of the chest Resp Effort & Inspection: normal respiratory effort and able to speak in complete sentences Auscultation: clear to auscultation bilaterally Cardio Jugular venous pressure: no JVD Rate: regular rate Rhythm: abnormal rhythm irregularly irregular GI Inspection: normal to inspection Palpation: soft and no hepatosplenomegaly Percussion: normal to percussion General: No CVA tenderness and deferred Back/Spine/Pelvis Back: no CVA tenderness Skin General skin exam: no rashes or lesions noted Neuro General: patient alert, patient awake and patient oriented x3 Cognition: normal cognition Speech: speech normal Extrem General: abnormal to inspection, full ROM, pedal edema present and edema (improved. +1-2 down from 4) Laterality: bilateral Right lower extremity: edema Details: pitting and 1+ Left lower extremity: normal to inspection and edema Details: pitting and 1+ Other: Improved edema dowm from thigh to ankle now only around ankle +1-2 Psych Appearance: grossly normal Mental Status: mental status grossly normal Speech and Movement: speech and movement normal Mood: congruent mood Affect: normal affect Objective Last Vital Signs Temp 36.8 C 08/24/20 11:37 Pulse 73 08/24/20 11:37 Resp 17 08/24/20 11:37 BP 144/80 H 08/24/20 11:37 Pulse Ox 98 08/24/20 11:37 Laboratory Results - last 24 hr 08/23/20 08/23/20 08/23/20 12:25 13:32 13:45 WBC RBC Hgb Hct MCV MCH MCHC RDW Plt Count MPV Immature Gran % Neutrophils % Lymphocytes % Monocytes % Eosinophils % Basophils % Nucleated RBC % Absolute Neutrophils Absolute Lymphocytes Absolute Monocytes Absolute Eosinophils Absolute Basophils RBC Morphology PT INR Sodium Potassium Chloride Carbon Dioxide Anion Gap BUN Creatinine Estimated GFR/1.73 m2 Glucose Hemoglobin A1c Calcium Magnesium Troponin I NT-Pro-B Natriuret Pep TSH 6.53 H Free T4 1.41 Urine Color Yellow Urine Clarity Clear Urine pH 7.0 Ur Specific [place] 1.020 Urine Protein 100 H Urine Ketones Negative Urine Blood Trace-intact H Urine Nitrite Negative Urine Bilirubin Negative Urine Urobilinogen 0.2 Ur Leukocyte Esterase Negative Urine RBC 0-2 Urine WBC 0-2 Ur Epithelial Cells Few Urine Crystals Negative Urine Bacteria Negative Urine Casts Negative Urine Mucus Negative Ur Culture Indicated? No Urine Glucose Negative COVID-19 Source Nasal/nares 08/23/20 08/23/20 08/24/20 15:26 19:18 06:23 WBC RBC Hgb Hct MCV MCH MCHC RDW Plt Count MPV Immature Gran % Neutrophils % Lymphocytes % Monocytes % Eosinophils % Basophils % Nucleated RBC % Absolute Neutrophils Absolute Lymphocytes Absolute Monocytes Absolute Eosinophils Absolute Basophils RBC Morphology PT INR Sodium Potassium Chloride Carbon Dioxide Anion Gap BUN Creatinine Estimated GFR/1.73 m2 Glucose Hemoglobin A1c Calcium Magnesium Troponin I 0.17 H* 0.17 H* 0.16 H* NT-Pro-B Natriuret Pep TSH Free T4 Urine Color Urine Clarity Urine pH Ur Specific [place] Urine Protein Urine Ketones Urine Blood Urine Nitrite Urine Bilirubin Urine Urobilinogen Ur Leukocyte Esterase Urine RBC Urine WBC Ur Epithelial Cells Urine Crystals Urine Bacteria Urine Casts Urine Mucus Ur Culture Indicated? Urine Glucose COVID-19 Source 08/24/20 08/24/20 08/24/20 06:23 06:23 06:23 WBC 7.64 RBC 3.81 L Hgb 11.3 Hct 34.5 L MCV 90.6 MCH 29.7 MCHC 32.8 RDW 14.2 Plt Count 164 MPV Immature Gran % 0.1 Neutrophils % 55.3 Lymphocytes % 30.9 Monocytes % 10.7 Eosinophils % 2.1 Basophils % 0.9 Nucleated RBC % 0 Absolute Neutrophils 4.22 Absolute Lymphocytes 2.36 Absolute Monocytes 0.82 H Absolute Eosinophils 0.16 Absolute Basophils 0.07 RBC Morphology Normal PT 29.7 H INR 3.0 H Sodium 141 Potassium 3.3 L Chloride 103 Carbon Dioxide 30.1 Anion Gap 7.9 BUN 30 H Creatinine 1.6 H Estimated GFR/1.73 m2 30.71 Glucose 62 L D Hemoglobin A1c Calcium 8.6 Magnesium 2.2 Troponin I NT-Pro-B Natriuret Pep 6258 H TSH Free T4 Urine Color Urine Clarity Urine pH Ur Specific [place] Urine Protein Urine Ketones Urine Blood Urine Nitrite Urine Bilirubin Urine Urobilinogen Ur Leukocyte Esterase Urine RBC Urine WBC Ur Epithelial Cells Urine Crystals Urine Bacteria Urine Casts Urine Mucus Ur Culture Indicated? Urine Glucose COVID-19 Source 08/24/20 06:23 WBC RBC Hgb Hct MCV MCH MCHC RDW Plt Count MPV Immature Gran % Neutrophils % Lymphocytes % Monocytes % Eosinophils % Basophils % Nucleated RBC % Absolute Neutrophils Absolute Lymphocytes Absolute Monocytes Absolute Eosinophils Absolute Basophils RBC Morphology PT INR Sodium Potassium Chloride Carbon Dioxide Anion Gap BUN Creatinine Estimated GFR/1.73 m2 Glucose Hemoglobin A1c 8.4 H Calcium Magnesium Troponin I NT-Pro-B Natriuret Pep TSH Free T4 Urine Color Urine Clarity Urine pH Ur Specific [place] Urine Protein Urine Ketones Urine Blood Urine Nitrite Urine Bilirubin Urine Urobilinogen Ur Leukocyte Esterase Urine RBC Urine WBC Ur Epithelial Cells Urine Crystals Urine Bacteria Urine Casts Urine Mucus Ur Culture Indicated? Urine Glucose COVID-19 Source
[2020-08-24] MEDS: Potassium Chloride 20 MEQ TABCR 40 MEQ PO (13:45)
[2020-08-24 15:56] LABS: COVID-19 PCR Negative (Negative)
[2020-08-24] MEDS: Furosemide 40 MG/4 ML VIAL IVP (16:19)
[2020-08-24] MEDS: Rosuvastatin 10 MG TAB 20 MG PO (19:54)
[2020-08-24] MEDS: Warfarin 5 MG TAB PO (19:54)
[2020-08-24] MEDS: Lisinopril 5 MG TAB PO (23:21)
[2020-08-25 03:47] VITALS: BP 103/66; PULSE 82; RESP 17; TEMP 36.4; O2SAT 96
[2020-08-25] MEDS: dilTIAZem 60 MG TAB PO (06:02)
[2020-08-25 07:34] LABS: INR 2.9 (0.9-1.1); Prothrombin Time 28.2 sec (9.3-11.0)
[2020-08-25 07:47] LABS: Chloride 102 mmol/L (98-107); Sodium 139 mmol/L (136-145)
[2020-08-25 08:02] VITALS: BP 114/70; PULSE 75; RESP 19; TEMP 36; O2SAT 97
[2020-08-25 08:08] LABS: Anion Gap 6.5 mmol/L (3-11); CO2 30.5 mmol/L (21.0-32.0); Calcium 8.8 mg/dL (8.5-10.1); Estimated GFR 23.74 (mL/min/1.73m2); NT-proBNP 3130 pg/mL (<300)
[2020-08-25 08:09] LABS: BUN 39 mg/dL (7-18); Glucose 141 mg/dL (74-106)
[2020-08-25 08:10] LABS: Potassium 4.1 mmol/L (3.5-5.1)
--- NOTE | 2020-08-25 09:49 | W.PM.DS.N ---
Date of service: 08/25/20 Time of Service: 09:49 DS: Diagnosis Discharge Diagnosis (1) Atrial fibrillation with rapid ventricular response: Start date: 08/25/20 Start time: 09:49 Status: Resolved Asessment and Plan: Resolved at time of admission. She was at controlled rate. She was placed on cardizem 60 q 6 hours maintaining controlled rate;therefore increased to 240 mg CD, will continue metoprolol 200 mg. She feels better, SOB resolved. She will need repeat BMP in 3 days with follow up to PCP on Tuesday as scheduled (2) Elevated troponin: Start date: 08/25/20 Start time: 09:55 Status: Resolved Asessment and Plan: likely in setting of demand due to Afib with RVR HR (3) CHF (congestive heart failure): Start date: 08/25/20 Start time: 09:56 Status: Chronic Asessment and Plan: On admission bmp over 6000 given IV lasix, diuresed. now bmp around baseline however slight elevation in creatinine will recheck in 3 days and have her follow up with PCP. Placed back on oral lasix and follow up with PCP in one week (4) Diabetes mellitus: Start date: 08/25/20 Start time: 09:58 Status: Chronic Asessment and Plan: continue outpatient regimen (5) CKD (chronic kidney disease), stage II: Start date: 08/25/20 Start time: 10:02 Status: Chronic Asessment and Plan: around baseline through admission slightly elevated today will repeat in 3 days. Due to diuresis. (6) Hypertension: Start date: 08/25/20 Start time: 10:04 Status: Chronic Asessment and Plan: Overall she has been normotensive since being admitted. continue home regimen above case discussed with Dr. Finley Discharge Plan Disposition Patient Disposition: HOME Condition: Stable Discharge Details Reason For Visit: AFIB, ELEVATED TROPS, VOLUME OVERLOAD Admit Date/Time: 08/23/20 16:14 Admit Provider: Cristin Finley Attending Provider: Cristin Finley Primary Care Provider: Rad Yeh Hospital Course Hospital Course: 85 y.o female with PMH of Afib on coumadin, CHF, HTN, NSTEMI, Diabetes presented to [facility] ED with SOB, fatigue and belching x 1 week. On arrival EKG done revealed afib with HR 120's though she was comfortable. She was given 15 mg diltizem in ED and converted to SR. Labs in the ED revealed sodium 133, K 3.4, creatinine 1.66 bun 34, bnp 6827 trop 0.18 with second trop 0.17, mag 2.2, otherwise unremarkable. Cxr with no acute findings. She had been asked to be admitted to hospital medicine for further management. Over course of treatment she was diuresised with IV lasix her bnp today is around baseline, edema is improved. She feels better. HR has been controlled since admission with 240 diltizem, which we will send her home on. She has not had any CP, SOB, N/V/D. Her creatinine did bump slightly however we will repeat this as an outpatient in 3 days and she can follow up with PCP tomorrow as planned. She knows to way herself daily. She will need to continue to do so. Home Meds and New Rx's Prescriptions: New diltiazem HCl 240 mg capsule,extended release 24 hr 240 mg PO QAM Qty: 30 RF: 0 Continued ketoconazole 2 % cream 1 applic topical QPM PRNRF: 0 multivitamin [Daily Multi-Vitamin] 1 EACH tablet 1 tab PO DAILY RF: 0 ascorbic acid (vitamin C) 500 MG tablet 2 tab PO DAILY PRN RF: 0 Hold Instructions: Patient reports getting her vitamin C from multivitamin. chromium picolinate 1,000 MCG tablet 1,000 mcg PO daily prn RF: 0 Hold Instructions: Patient reports not taking for a while. aspirin [Adult Low Dose Aspirin] 81 mg tablet,delayed release (DR/EC) 81 mg PO DAILY RF: 0 furosemide 20 mg tablet 40 mg PO DAILY Qty: 180 RF: 3 nitroglycerin 0.4 mg tablet, sublingual 0.4 mg Sublingual Q 5 MIN PRN Qty: 25 RF: 4 Tresiba FlexTouch U-100 100 unit/mL (3 mL) insulin pen 18 unit SC QHS Qty: 15 RF: 4 lisinopril 5 mg tablet 5 mg PO HS Qty: 90 RF: 3 pantoprazole 40 mg tablet,delayed release (DR/EC) 40 mg PO DAILY Qty: 90 RF: 4 rosuvastatin [Crestor] 20 mg tablet 20 mg PO QPM Qty: 90 RF: 3 warfarin 5 mg tablet 2.5 - 5 mg PO DAILY Qty: 60 RF: 5 metoprolol succinate 200 mg tablet extended release 24 hr 200 mg PO DAILY Qty: 90 RF: 3 docusate sodium [Colace] 100 mg Capsule 100 mg PO BID Qty: 60 RF: 0 magnesium oxide 400 mg (241.3 mg magnesium) Tablet 400 mg PO DAILY Qty: 10 RF: 0 sennosides [Senokot] 8.6 mg Tablet 1 tab PO BID PRN PRNQty: 60 RF: 0 acetaminophen 500 mg capsule 500 mg PO Q4H PRN PRN (Reason: pain) Qty: 0 RF: 0 Discontinued diltiazem HCl 120 mg capsule,extended release 24 hr 120 mg PO QAM Qty: 30 RF: 4 No Action (DME) pen needle, diabetic [BD Ultra-Fine Juliann Pen Needle] 32 gauge x 5/32 needle See Dose Instructions .ROUTE .MEDSUPPLY Qty: 100 RF: 3 Discharge Instructions Instructions: Diltiazem (By mouth), A-fib (Atrial Fibrillation) (DC), Basic Carbohydrate Counting (DC), DASH Eating Plan (DC) Additional Instructions: Follow up with PCP in week Repeat blood work in 3 days Weight yourself daily Stand Alone Forms: Nursing Discharge Form Referrals: Rad Yeh [Primary Care Provider] - (Call your PCP tomorrow for an appt in one week) Activity:: Activity as Tolerated Equipment/Supplies:: No Equipment Needed Diet:: low sodium Discharge Orders Discharge Orders: Discharge Order (Routine); Ordered 08/25/20 Ordered By: Rachael Carlton Other Ambulatory Orders: Basic Metabolic Panel (Routine) Location: None Selected Ordered By: Rachael Carlton DS: Summary Time Spent with Patient providing and/or coordinating discharge services: Less than 30 minutes Status at Discharge Functional status at discharge: independent ambulation Overall status at discharge: patient is back to baseline Mental Status: mental status grossly normal Speech and Movement: speech and movement normal Mood: congruent mood Affect: normal affect Exam Const General: cooperative, comfortable and no acute distress Orientation: alert, awake and oriented x3 HENMT Head: normocephalic and atraumatic Mouth: oral mucosae normal and moist mucous membranes Eyes General: appearance normal, both eyes and all related structures Eyelids: eyelids normal Conjunctivae: conjunctivae normal Sclera: sclerae normal Pupils: PERRL EOM: EOM intact bilaterally Neck Neck: normal visual inspection, full ROM and no JVD Thyroid: thyroid normal Lymphatic: no lymphadenopathy noted Chest Chest: normal inspection of the chest Resp Effort & Inspection: normal respiratory effort and able to speak in complete sentences Auscultation: clear to auscultation bilaterally Cardio Jugular venous pressure: no JVD Rate: regular rate Rhythm: abnormal rhythm irregularly irregular GI Inspection: normal to inspection Palpation: soft and no hepatosplenomegaly Percussion: normal to percussion General: No CVA tenderness and deferred Back/Spine/Pelvis Back: no CVA tenderness Skin General skin exam: no rashes or lesions noted Neuro General: patient alert, patient awake and patient oriented x3 Cognition: normal cognition Speech: speech normal Extrem General: abnormal to inspection, full ROM, pedal edema present and edema (improved. +1-2 down from 4) Laterality: bilateral Right lower extremity: edema Details: pitting and 1+ Left lower extremity: normal to inspection and edema Details: pitting and 1+ Psych Appearance: grossly normal Mental Status: mental status grossly normal Speech and Movement: speech and movement normal Mood: congruent mood Affect: normal affect DS: Data Vitals/I&O Vitals and I&O: Vital Signs Temperature 36.0 C L 08/25/20 08:02 Temperature Source Tympanic 08/25/20 08:02 Pulse 75 08/25/20 08:02 Pulse Rhythm Regular 08/25/20 04:40 Pulse 109 H 08/23/20 16:50 Respiratory Rate 19 08/25/20 08:02 Respiratory Effort 08/25/20 04:40 Respiratory Depth Normal 08/25/20 04:40 Respiratory Pattern Normal 08/25/20 04:40 Blood Pressure 114/70 08/25/20 08:02 Blood Pressure Mean 104 08/23/20 16:46 Blood Pressure Position Supine 08/23/20 12:20 Pulse Oximetry 97 08/25/20 08:02 Oxygen Delivery Method Room Air 08/25/20 08:02 Oxygen Flow Rate 0 08/25/20 08:02 Pain Level 0 08/25/20 03:47 Intake & Output 08/24/20 08/24/20 08/25/20 11:59 23:59 11:59 Intake Total 640 / 1140 500 / 1140 240 / 240 Output Total 1472024 550 / 2024 300 / 300 Balance -835 / -885 -50 / -885 -60 / -60 Weight 73.8 kg 73 kg Intake: IV Oral 640 / 1130 490 / 1130 240 / 240 Output: Urine 1474 550 / 2024 300 / 300 Other: Urine Color Yellow Yellow Yellow Urine Appearance Clear Clear Clear Urine Odor Normal None Normal Comment pT voided and missed hat, unable to give measurment Voiding Methods Bedside Commode Toilet Toilet Data Completed and Pending Completed studies during hospitalization [Text1]: Exam(s) PROCEDURE INFORMATION: Exam: XR Chest Exam date and time: 08/23/2020 12:20 PM Age: 85 years old Clinical indication: Shortness of breath TECHNIQUE: Imaging protocol: XR of the chest. Views: 2 views. COMPARISON: CR XR CHEST 2V PA LATERAL 05/07/2020 11:38 AM FINDINGS: Lungs: Unremarkable. No consolidation. Pleural spaces: Unremarkable. No pleural effusion. No pneumothorax. Heart/Mediastinum: Unremarkable. No cardiomegaly. Bones/joints: No acute osseous abnormality. IMPRESSION: No acute findings. Exam(s) XR CHEST 2V PA LATERAL EXAM: XR CHEST 2V PA LATERAL CLINICAL HISTORY: shortness of breath, r/o acute disease TECHNIQUE: 2D digital imaging was performed. COMPARISON: No exams were available for comparison FINDINGS: MEDIASTINUM: Normal. HEART: Normal. PULMONARY VASCULATURE: Normal. LUNGS: Clear. PLEURAL SPACE: No pleural effusion or pneumothorax. BONE:Within normal limits for the patient's age. OTHER FINDINGS:Normal. IMPRESSION: No acute pulmonary findings. DATA REPOSITORY: Labs on day of discharge: Labs from last 24 hours 08/25/20 08/25/20 08/23/20 06:54 06:54 13:32 PT 28.2 H INR 2.9 H Sodium 139 Potassium 4.1 D Chloride 102 Carbon Dioxide 30.5 Anion Gap 6.5 BUN 39 H D Creatinine 2.0 H Estimated GFR/1.73 m2 23.74 Glucose 141 H D Calcium 8.8 NT-Pro-B Natriuret Pep 3130 H SARS-CoV-2 (PCR) Negative PFSH Medical History Acute on chronic systolic heart failure Arthritis ASCVD (arteriosclerotic cardiovascular disease) (04/22/15) [place] with out of hosp cardiac arrest LAD stent, LVEF 35% Atrial fibrillation (05/27/11) paroxysmal Oct 2009 Carpal tunnel syndrome on both sides s/p Left ECTR 01/30/2020 CHF (congestive heart failure) Chronic HFrEF (heart failure with reduced ejection fraction) Chronic low back pain Complementary medicine homeopathic primarily: DNI (do not intubate) DNR (do not resuscitate) Dyspnea Essential hypertension (01/04/13) echo 2007 LVH uncontrolled BP (neg w/u for pheo) Fatigue Foot drop, left GERD (gastroesophageal reflux disease) Goals of care, counseling/discussion Hyperlipidemia Hypertensive retinopathy Hyponatremia Impaired left ventricular function (~05/2019) [facility] [place]; 35% Leg length discrepancy Lives alone Low back pain Lumbar stenosis Mild obstructive sleep apnea (11/17/15) [facility] TO [facility] NSTEMI (non-ST elevated myocardial infarction) (~05/2019) [facility] [place] Palliative care patient Pedal edema POLST (Physician Orders for Life-Sustaining Treatment) Refusal of blood transfusions as patient is Uatsdin Renal insufficiency Type II diabetes mellitus with complication, uncontrolled (05/14/14) Vaccine counseling encouraged her to take COVID-19 vaccine; unlikely she will Surgical History History of appendectomy History of carpal tunnel surgery of left wrist (01/30/20) History of right hip replacement Family History Brother Cancer Brother Cancer Leukemia Mother Asthma Sister Cancer Brother Dementia lives in SNF Son No problems noted. Son Paraplegic spinal paralysis motor vehicle crash Son No problems noted. Son No problems noted. Social History Smoking/Tobacco Use Status: Never Second Hand Exposure: No Smoking risk assessment performed?: Yes Alcohol Intake: never Drug use: Never Substance use type: does not use Caregiver/Support person: No Household members: none Housing: house Number of Children: 4 number of grandchildren: 5 Communication Needs: Corrective Lenses Education Level: high school Do you need help understanding health information?: Often current occupation: Retired Pets and animals: Yes (one cat, Fancy) Pets and animals: cat(s) Current gender identity: female What is your relationship status?: How often do you talk on the phone with friends or family?: three or more times per week How often do you get together with friends or relatives?: three or more times per week How often do you attend jehovah's witness or rastafari services?: 4 or more times per year Panel score (0-1 are the most socially isolated patients): 2 What type of physical activity do you participate in: assisted ambulation Duration: 15-30 minutes/day Frequency: does not exercise Faviola/Taoist: Uatsdin Special faviola needs: Yes (no transfusion) Agree to transfusion: No Seatbelt use: always Drive intox or ride w/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 Linda's family hires [employer] to help with housework mostly. Hip pain better since her surgery with Dr Stovall. Lately, her biggest health problem has been chronic dyspnea and low exercise tolerance. She would benefit from regular SN visits; Rio Pimentel RN from was supposed to visit today. I am concerned about her health. She appears worse than I have seen her since she was in acute pain in her hip prior to hip surgery.
[2020-08-25] MEDS: Aspirin E.C. 81 MG TABEC PO (10:01)
[2020-08-25] MEDS: Metoprolol CR 100 MG TABCR 200 MG PO (10:03)
[2020-08-25] MEDS: Normal Saline Flush 10 ML SYR IVP (10:05)
[2020-08-25] MEDS: Furosemide 20 MG TAB 40 MG PO (10:53)
[2020-08-25 11:04] VITALS: BP 126/71; PULSE 67; RESP 19; TEMP 36.3; O2SAT 98
--- NOTE | 2020-08-25 11:20 | PT.INTREAT ---
Date of service: 08/25/20 Time of Service: 08:40 PT Notes Visit Reasons: AFIB, ELEVATED TROPS, VOLUME OVERLOAD Inpatient Physical Therapy Treatment Note [facility] Date: 08/25/2020 PRECAUTIONS: Activity as Tolerated SUBJECTIVE: Linda is pleasant and agreeable to participating in PT. She states that she has been getting up and using the bathroom on her own, but was told that she needs to call for assist. OBJECTIVE: Following PT session and discussion with rebeca, patient has been cleared to be independent in room with 4WW. PAIN: No c/o pain BED MOBILITY/TRANSFERS Supine-sit: I Sit-stand: I Stand-sit: I GAIT Assistive Device: 4WW Weight bearing: Full Assist: I Distance: 200' x2 Deviation: Seated rest x1 due to SOB THEREX: Patient was instructed in a seated UE and LE strengthening program, as per flow sheet. ASSESSMENT: Patient tolerated session well with complaint of SOB with gait training, requiring seated rest. She demonstrates steady gait and pacing with 4WW. She demonstrates independence with gait and transfers at this time. PLAN: Potential discharge to home with PT follow-up. TREATMENT CODE/TIME: 20 minutes; 86155 (08:40)
[2020-08-25] MEDS: dilTIAZem CD 120 MG CAPCR 240 MG PO (12:13)
[2020-08-25] MEDS: Insulin Aspart 300 UNITS/3 ML PEN SC (12:14)
--- NOTE | 2020-08-25 14:17 | CMDISCH_ITS ---
- If Service Date Differs Date of service: 08/25/20 Time of Service: 14:17 LACE Index Scoring Tool - Questions: Length of Stay (in days): 2 Acuity (Admit via E.D.?): Yes Comorbidities: Congestive Heart Failure E.D. Visits: 4 - Answers: Total Score: 11 Risk of Readmission: High Risk Care Management Discharge Reason for Hospitalization: AFIB, elevated troponins, and volume overload. Discharge Plan: Linda is discharged home with no new services. 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 She is driven home via private vehicle by family. Patient/Family Education Needs: Discharge instructions, limitations, follow up plan of care, including Ask Me Three and self management.
--- NOTE | 2020-08-26 17:00 | INDS_ITS ---
Date of service: 08/26/20 PT Notes Visit Reasons: AFIB, ELEVATED TROPS, VOLUME OVERLOAD Physical Therapy Inpatient Discharge Summary Date: 08/26/2020 Dates of service: 08/24/2020 through 08/25/2020 This is a clinical summary of care provided for the duration of dates listed above. No charge was made in the completion of this documentation. Referring Doctor: Rachael Carlton NP PT Orders: PT CONSULT: Eval/treat. Precautions: Fall. Standard. Activity as tolerated. Patient Profile/Admitting Diagnosis: Linda is an 85-year-old female who presented to the ED on 08/23/2020 with shortness of breath, fatigue, belching and that have been ongoing for 1 week preceding admission. Patient is diagnosed with atrial fibrillation with rapid ventricular response, elevated troponin, congestive heart failure, diabetes mellitus, stage II chronic kidney disease, and hypertension. PMHX: Medical History Acute on chronic systolic heart failure Arthritis ASCVD (arteriosclerotic cardiovascular disease) (04/22/15) [place] with out of hosp cardiac arrest LAD stent, LVEF 35% Atrial fibrillation (05/27/11) paroxysmal Oct 2009 Carpal tunnel syndrome on both sides s/p Left ECTR 01/30/2020 CHF (congestive heart failure) Chronic HFrEF (heart failure with reduced ejection fraction) Chronic low back pain Complementary medicine homeopathic primarily: DNI (do not intubate) DNR (do not resuscitate) Dyspnea Essential hypertension (01/04/13) echo 2007 LVH uncontrolled BP (neg w/u for pheo) Fatigue Foot drop, left GERD (gastroesophageal reflux disease) Goals of care, counseling/discussion Hyperlipidemia Hypertensive retinopathy Hyponatremia Impaired left ventricular function [place]2019[place] [facility] [place] Leg length discrepancy Lives alone Low back pain Lumbar stenosis Mild obstructive sleep apnea (11/17/15) [facility] NSTEMI (non-ST elevated myocardial infarction) ([place]05/2019[place] [facility] [place] Pedal edema POLST (Physician Orders for Life-Sustaining Treatment) Refusal of blood transfusions as 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 She was independent with a 4-wheeled walker for all mobility ADL performance. She now cooks her own meals, previously was receiving Meals on Wheels. A lady comes in twice a week for 6 hours each time to help with power equipment technology instructor, laundry, grocery shopping and errands. Equipment Owned/DME: 4WW Subjective: NT. See most recent PRINCIPAL DATA ARCHITECT notes. Objective: General Observation: NT. See most recent PRINCIPAL DATA ARCHITECT notes. Mental Status: NT. See most recent PRINCIPAL DATA ARCHITECT notes. Pain: NT. See most recent PRINCIPAL DATA ARCHITECT notes. ROM: Right Upper Extremity: Shoulder Flexion WFL. Shoulder abduction WFL. Elbow flexion WFL. Wrist flexion WFL. Functional opening and closing of hand WFL. Left Upper Extremity: Shoulder Flexion WFL. Shoulder abduction WFL. Elbow flexion WFL. Wrist flexion WFL. Functional opening and closing of hand WFL. Right Lower Extremity: Hip flexion WFL. Hip abduction WFL. Knee flexion WFL. Ankle dorsiflexion WFL. Ankle plantarflexion WFL. Left Lower Extremity: Hip flexion WFL. Hip abduction WFL. Knee flexion WFL. Ankle dorsiflexion WFL. Ankle plantarflexion WFL. Strength: Right Upper Extremity: Shoulder flexors 5/5. Shoulder abductors 5/5. Elbow flexors 5/5. Elbow extensors 5/5. Utilization Management Um Nurse strong. Left Upper Extremity: Shoulder flexors 5/5. Shoulder abductors 5/5. Elbow flexors 5/5. Elbow extensors 5/5. Utilization Management Um Nurse strong. Right Lower Extremity: Hip flexors 4-/5. Hip abductors 4-/5. Knee flexors 4/5. Knee extensors 4-/5. Ankle dorsiflexors 4-/5. Ankle plantarflexors 4-/5. Left Lower Extremity: Hip flexors 4-/5. Hip abductors 4-/5. Knee flexors 4/5. Knee extensors 4-/5. Ankle dorsiflexors 4-/5. Ankle plantarflexors 4-/5. Sensation: Intact as to pain and pressure on bilateral lower extremities. Bed Mobility/Transfers: Supine to sit independent Sit to stand independent Stand to sit independent Bed to chair independent Chair to bed independent Gait: Linda tolerated level surface ambulation of 200 feet x 2 using the 4?wheeled walker with FWB on BLE. Increasing time on the left side. Increase trunk flexion. Denies headache, chest pain, and dizziness throughout ambulation activity. Balance: Static Sitting: Normal Dynamic Sitting: Normal Static Standing: Fair Dynamic Standing: Fair Assessment: Anne-Marie demonstrates decreased activity tolerance, generalized weakness, and increased risk for falls due to admitting diagnoses and will benefit from physical therapy services to increase ability to return home when medically cleared by hospitalist. Patient presents with clinical signs and symptoms consistent with current/admitting diagnoses that have resulted to mobility limitations, gait instability, generalized weakness, and impairment of motor control as demonstrated by the following impairment level findings: 1. Decreased strength to BLE major muscle groups 2. Impaired standing balance 3. Impaired activity tolerance Impairments are contributing to the following functional limitations: 1. Inability to safely ambulate without assistive device 2. Increase completion time for mobility ADL performance 3. Increased fall risk Goals: Goals X1 week 1. Bed-Chair independent independent MET 2. Chair-Bed standby assist MET 3. Independent gait on level surface with use of least restrictive device for at least 50 feet without report of pain nor dyspnea MET 4. Good static and dynamic standing balance/tolerance MET DISCHARGE RECOMMENDATIONS: Patient will benefit from home health PT services in order to progress mobility level using least restrictive assistive ambulatory device, assess home safety, identify additional equipment needs, and establish a functional maintenance program that will increase ability of patient to remain at home. TREATMENT CODE/TIME: [place] Thank you for the opportunity to participate in the care of this patient. Alix Hannah PT, DPT, CLT [facility] [place], [place]
== END 2020-08-25 13:44 | disposition home or self-care (01) ==
LOC: ER 16:52 → MS 17:08
PROVIDERS: Nurse Practitioner Family; Admitting Provider Internal Medicine; Emergency Provider Physician Assistant; PCP Family Medicine; Visit Provider Internal Medicine
DX: I48.0 Paroxysmal atrial fibrillation (principal); I50.22 Chronic systolic (congestive) heart failure; R74.8 Abnormal levels of other serum enzymes; E11.22 Type 2 diabetes mellitus with diabetic chronic kidney disease; N18.2 Chronic kidney disease, stage 2 (mild); Z79.01 Long term (current) use of anticoagulants; I13.0 Hypertensive heart and chronic kidney disease with heart failure and stage 1 through stage 4 chronic kidney disease, or unspecified chronic kidney disease; I25.2 Old myocardial infarction; R06.02 Shortness of breath; R53.83 Other fatigue; Z79.82 Long term (current) use of aspirin; Z79.4 Long term (current) use of insulin; Z20.822 Contact with and (suspected) exposure to COVID-19; Z66 Do not resuscitate; I25.10 Atherosclerotic heart disease of native coronary artery without angina pectoris; Z95.5 Presence of coronary angioplasty implant and graft; G89.29 Other chronic pain; M54.5 Low back pain; K21.9 Gastro-esophageal reflux disease without esophagitis; E78.5 Hyperlipidemia, unspecified; G47.33 Obstructive sleep apnea (adult) (pediatric)
CPT/HCPCS: 36415; 80048; 80053; 87635; 93005; 96374; 97162; 97530; 99285; 71046; 81003; 81015; 83036; 83735; 83880; 84439; 84443; 84484; 85025; 85610; 85730; 93010; 99217; 99220; 99225; G0378; J1940

== ENCOUNTER → 2020-09-16 10:35 | Outpatient (BNVA) | payer MEDICARE, OTHER, SELFPAY | PROVIDERS: PCP Family Medicine; Referring Provider Family Medicine; Visit Provider Internal Medicine Cardiovascular Disease | DX: I11.0 Hypertensive heart disease with heart failure (principal); I50.22 Chronic systolic (congestive) heart failure; I48.11 Longstanding persistent atrial fibrillation | CPT/HCPCS: 99214 ==

== ENCOUNTER 2020-10-09 03:24 | Outpatient (CLI) | payer MEDICARE, OTHER, SELFPAY ==
[2020-10-09 12:51] LABS: Prothrombin Time 19.6 sec (9.3-11.0)
== END 2020-10-09 03:25 | disposition home or self-care (01) ==
LOC: LOS 03:25
PROVIDERS: PCP Family Medicine; Visit Provider Family Medicine
DX: I48.19 Other persistent atrial fibrillation (principal); Z79.01 Long term (current) use of anticoagulants
CPT/HCPCS: 36415; 85610

== ENCOUNTER → 2020-11-07 14:26 | Outpatient (BNVA) | payer MEDICARE, OTHER, SELFPAY | PROVIDERS: PCP Family Medicine; Visit Provider Internal Medicine Cardiovascular Disease | DX: I50.22 Chronic systolic (congestive) heart failure (principal); I11.0 Hypertensive heart disease with heart failure; I48.11 Longstanding persistent atrial fibrillation; I25.10 Atherosclerotic heart disease of native coronary artery without angina pectoris; Z79.01 Long term (current) use of anticoagulants | CPT/HCPCS: 99214 ==

== ENCOUNTER 2020-11-13 12:19 | Outpatient (CLI) | payer MEDICARE, OTHER, SELFPAY ==
--- NOTE | 2020-11-13 11:15 | DI.RAD_ITS ---
Exam(s) XR SHOULDER RT COMPLETE 2+V EXAM: XR SHOULDER RT COMPLETE 2+V CLINICAL HISTORY: eval R shoulder pain. TECHNIQUE: 2D digital imaging was performed. COMPARISON: No exams were available for comparison FINDINGS: No evidence of fracture or dislocation. There are moderate degenerative changes in the glenohumeral joint. Also calcifications noted in subacromial space consistent with calcific rotator cuff tendinit is-bursitis. There is also some diminution of the subacromial space. Suspect rotator cuff pathology . Moderate degenerative changes in the AC joint. No osseous lesions. IMPRESSION: DATA REPOSITORY: RADIATION DOSE DELIVERED:
== END 2020-11-13 12:20 | disposition home or self-care (01) ==
LOC: DIORS 12:19
PROVIDERS: PCP Family Medicine; Referring Provider Family Medicine; Visit Provider Student in an Organized Health Care Education/Training Program
DX: M25.511 Pain in right shoulder (principal); M75.101 Unspecified rotator cuff tear or rupture of right shoulder, not specified as traumatic
CPT/HCPCS: 20610; 99213; 73030; J1040

== ENCOUNTER 2021-01-22 11:02 | Outpatient (CLI) | payer MEDICARE, OTHER, SELFPAY ==
--- NOTE | 2021-01-22 11:00 | RT.EKG_ITS ---
APPROVED REPORT Exam: Resting ECG Reason for Exam: rapid afib Patient Location: O HR:123 bpm ECG Measurements Heart Rate 123 AXIS WI [id number] P [id number] QRSd 136 QRS 3 QT 350 T [id number] QTc 501 Conclusion Atrial flutter...A-rate 294 IVCD, consider LBBB...QRSd>120, notch/slur R I aVL V5-6 ST elevation secondary to atrial flutter
== END 2021-01-22 11:03 | disposition home or self-care (01) ==
LOC: DI.CM 11:03
PROVIDERS: PCP Family Medicine; Visit Provider Nurse Practitioner Family
DX: I48.19 Other persistent atrial fibrillation (principal)
CPT/HCPCS: 93010

== ENCOUNTER 2021-01-22 11:53 | Emergency (ER) | payer MEDICARE, OTHER, SELFPAY ==
[2021-01-22] VITALS (36 sets, daily range): BP systolic 111–167; BP diastolic 57–105; PULSE 64–85; RESP 10–26; TEMP 36.5–36.7; O2SAT 94–99
--- NOTE | 2021-01-22 11:45 | RT.EKG_ITS ---
APPROVED REPORT Exam: Resting ECG Reason for Exam: CHEST PAIN Patient Location: E HR:72 bpm ECG Measurements Heart Rate 72 AXIS RI [id number] P [id number] QRSd 136 QRS -40 QT 401 T 130 QTc 441 Conclusion Atrial flutter with predominant 4:1 AV block...A-rate 283, multiple Ps Left bundle branch block...QRSd>120, broad/notched R
--- NOTE | 2021-01-22 12:03 | ED.GENADUL_ITS ---
Discharge Plan Disposition Patient Disposition: HOME Condition: Stable Discharge Details Clinical Impression: Atrial flutter with rapid ventricular response, Elevated troponin Primary Care Provider: Rad Yeh ED Provider: Yong Garza Home Meds and New Rx's Prescriptions: Continued ketoconazole 2 % cream 1 applic topical QPM PRNRF: 0 (DME) pen needle, diabetic [BD Ultra-Fine Juliann Pen Needle] 32 gauge x 5/32 needle See Dose Instructions .ROUTE .MEDSUPPLY Qty: 100 RF: 3 diltiazem HCl 240 mg capsule,extended release 24 hr 240 mg PO QAM Qty: 90 RF: 3 furosemide 40 mg tablet 40 mg PO DAILY Qty: 90 RF: 0 metoprolol succinate 200 mg tablet extended release 24 hr 200 mg PO DAILY Qty: 90 RF: 0 Tresiba FlexTouch U-100 100 unit/mL (3 mL) insulin pen 16 unit SC QHS Qty: 15 RF: 4 ascorbic acid (vitamin C) 500 MG tablet 2 tab PO DAILY PRN RF: 0 Hold Instructions: Patient reports getting her vitamin C from multivitamin. chromium picolinate 1,000 MCG tablet 1,000 mcg PO daily prn RF: 0 Hold Instructions: Patient reports not taking for a while. aspirin [Adult Low Dose Aspirin] 81 mg tablet,delayed release (DR/EC) 81 mg PO DAILY RF: 0 nitroglycerin 0.4 mg tablet, sublingual 0.4 mg Sublingual Q 5 MIN PRN Qty: 25 RF: 4 lisinopril 5 mg tablet 5 mg PO HS Qty: 90 RF: 3 warfarin 5 mg tablet 2.5 - 5 mg PO DAILY Qty: 60 RF: 5 docusate sodium [Colace] 100 mg Capsule 100 mg PO BID Qty: 60 RF: 0 magnesium oxide 400 mg (241.3 mg magnesium) Tablet 400 mg PO DAILY Qty: 10 RF: 0 sennosides [Senokot] 8.6 mg Tablet 1 tab PO BID PRN PRNQty: 60 RF: 0 acetaminophen 500 mg capsule 500 mg PO Q4H PRN PRN (Reason: pain) Qty: 0 RF: 0 Discharge Instructions Instructions: Atrial Flutter (ED) Additional Instructions: At this time your evaluation revealed troponin is slightly elevated although when comparing to your baseline this appears to be chronic in nature. Your ventricular rate is no longer rapid and you are currently asymptomatic. Given your age, presentation, multiple comorbidities, we did discuss observation admission at this time but you have declined. You have requested to be discharged home. I did consult with Dr. Swanson who is aware of your ER visit, elevated troponin, and your desire to be discharged home. Please continue all medications as directed. Watch for new or worsening symptoms and return to the ER for any concerns. Lastly, I do recommend reaching out to both your primary care provider and your cardiology team tomorrow to discuss your ER visit, ongoing symptoms, and need for outpatient reevaluation. Discharge Data Discharge Date/Time-TO BE ENTERED AT DEPARTURE: 01/22/21 15:45 Medical Decision Making This is an 85-year-old female, DNR, DNI, significant past medical history, presenting via EMS from her primary care provider office after going to have a routine INR checked, found to have tachycardia. Patient reports that her heart rate does race often and when it is present she does have symptoms of shortness of breath and feeling as though her heart is racing. I did confirm that the patient had her INR checked today, 2.2. Patient was given 15 mg IV diltiazem via EMS in route and upon presentation she is asymptomatic, heart rate in the 80s. Patient is currently sitting up in the stretcher, no acute distress, awake, alert, speaking in full sentences. Blood pressure slightly elevated at 144/105, no evidence of tachypnea or hypoxemia, afebrile, O2 sats 97% on room air. Patient is agreeable to a medical work-up but does not want to be admitted nor does she want to be transferred. Patient denies recent illness or trauma. No additional concerns or complaints at this time. Heart rate currently in the 80s, will obtain IV access, CBC, CMP, serial troponin, and EKG. Given her INR is therapeutic at 2.2 today, is not believe it is necessary to obtain D-dimer or emergent CT imaging of the chest for potential PE as she is theoretically treated currently. Patient does state that she gets racing heart rates quite frequently. Patient without any chest pain whatsoever, will not give aspirin either. Initial laboratory values reveal no evidence of leukocytosis, anemia, sodium is 140, potassium minimally elevated 3.3, no evidence of changes on EKG that would be consistent with hypokalemia. Will give a single dose of oral potassium now. Chloride 102, anion gap 6.3, creatinine 1.3 with a GFR of 39.02, this appears to be near baseline, actually slightly improved from her normal baseline. Clinically no evidence of CHF, did not reflexively obtain BNP. Mag 2.1. Troponin is 0.19 although when reviewing her historical values, it would appear as though she has a small chronic troponin leak, again no chest pain today. Heart rate was elevated earlier today, likely related to demand. Discussed initial work-up with patient. She remains asymptomatic. She is requesting discharge now but I discussed with her that I would like to obtain a repeat troponin to be sure is not trending upward, continue to have her on the night monitor, and I would like to reach out to our hand riveter who she sees. 1405, case discussed with cardiology, Dr. Swanson. She states that she knows the patient well, patient has a poor rate control at baseline. Understands that her troponin is elevated, appears to have a chronic troponin leak. Likely elevated secondary to demand. She understands the patient's wish of being discharged home. She is agreeable to this plan, feels as though it is reasonable, and is happy to follow the patient as an outpatient. No additional suggestions at this time. Repeat EKG performed at 1508. Please see official report by Dr. Cox. Atrial flutter with variable AV block. Atrial rate of 283. PVC present. Left bundle branch block. No STEMI or dynamic changes when compared to initial EKG. Repeat troponin of 0.19, unchanged. Delta troponin is unchanged. Patient remains asymptomatic. She continues to request to be discharged home. We discussed her presentation and overall work- up. Strict discharge and return precautions were provided. Patient has no additional questions or concerns and is agreeable to reaching out to her cardiology team and her primary provider later today or tomorrow to discuss her ER visit and need for outpatient reevaluation. Medical Records Medical records reviewed: Yes I reviewed the patient's medical records. Imaging Data Radiologic Study: Attestation: I personally reviewed and interpreted this imaging study as follows: Imaging: X-Ray Radiologist's impression: Exam(s) XR CHEST 2V PA LATERAL EXAM: XR CHEST 2V PA LATERAL CLINICAL HISTORY: afib with rvr. TECHNIQUE: 2D digital imaging was performed. COMPARISON: CR,XR XR CHEST 2V PA LATERAL from 08/23/2020 FINDINGS: Heart size upper normal. Coronary artery stent is noted. Mediastinum is not widened. Lungs are clear. No infiltrates nor pleural effusions. No pulmonary edema. IMPRESSION: No acute pulmonary findings.Coronary artery stent noted in the LAD. Lab Data Lab results reviewed: Yes I reviewed the patient's lab results. Labs: Laboratory Tests Range/Units 01/22/21 01/22/21 01/22/21 13:05 13:05 14:39 WBC (4.4-10.8) 10^3/uL 8.60 RBC (3.93-5.22) 10^6/uL 4.07 Hgb (11.2-15.7) g/dL 12.1 Hct (36.0-46.0) % 37.3 MCV (80-95) fL 91.6 MCH (27.0-33.0) pg 29.7 MCHC (32.0-36.0) % 32.4 RDW (11.7-14.6) % 13.9 Plt Count (130-400) 10^3/uL 220 MPV (8.0-11.0) fL 11.5 H Immature Gran % 0.3 Neutrophils % 70.3 Lymphocytes % 18.4 Monocytes % 8.8 Eosinophils % 1.4 Basophils % 0.8 Nucleated RBC % % 0 Absolute Neutrophils (1.2-6.7) 10^3/uL 6.04 Absolute Lymphocytes (1.2-3.4) 10^3/uL 1.58 Absolute Monocytes (0.1-0.8) 10^3/uL 0.76 Absolute Eosinophils (0.0-0.7) 10^3/uL 0.12 Absolute Basophils (0.0-0.2) 10^3/uL 0.07 Sodium (136-145) mmol/L 140 Potassium (3.5-5.1) mmol/L 3.3 L Chloride (98-107) mmol/L 102 Carbon Dioxide (21.0-32.0) mmol/L 31.7 Anion Gap (3-11) mmol/L 6.3 BUN (7-18) mg/dL 29 H Creatinine (0.55-1.02) mg/dL 1.3 H Estimated GFR/1.73 m2 (mL/min/1.73m2) 39.02 Glucose (74-106) mg/dL 236 H Calcium (8.5-10.1) mg/dL 8.4 L Magnesium (1.8-2.4) mg/dL 2.1 Total Bilirubin (0.2-1.0) mg/dL 0.3 AST (15-37) U/L 21 ALT (14-59) U/L 26 Alkaline Phosphatase (46-116) U/L 89 Troponin I (<0.06) ng/mL 0.19 H* 0.19 H* Total Protein (6.4-8.2) g/dL 6.6 Albumin (3.4-5.0) g/dL 2.9 L TSH (0.36-3.74) uIU/mL 3.25 ECG Data Attestation: I personally reviewed and interpreted this ECG (s) as follows: Interpretation: Please see official report by Dr. Cox. Atrial flutter with predominant 4:1 AV block...A-rate 283, multiple Ps Left bundle branch block HPI General Mode of arrival: EMS . Date/Time Provider Initiated Documentation: 01/22/21 12:03 . Limitations to Documentation: no limitations . Information obtained by: patient and EMS . HPI Narrative: This is an 85-year-old female, past medical history DNR, DNI, CHF, CAD, A. fib, chronic anticoagulation, chronic low back pain, hypertension, GERD, palliative care, chronic pedal edema bilaterally, diabetes, presenting to the ER via EMS from her primary care office for A. fib and RVR. Patient admits that her A. fib is poorly controlled and she does occasionally go into RVR, noticed her symptoms going on this morning but did not think much of it as it typically goes away on its own. At the primary care office her INR was noted to be 2.2. She took all of her medications this morning, given she had A. fib with RVR EMS called and transported to the ER for further evaluation. EMS gave her 15 IV diltiazem and her A. fib resolved completely. Upon presentation patient denies any symptoms whatsoever. She tells me that her swelling her legs are baseline. She denies recent illness or trauma. Reports that when her heart was racing it can give her a feeling of breathlessness but now that her heart rate is appropriate she is denying any chest pain or shortness of breath whatsoever. Related Data Home Medications Medication Instructions Recorded Confirmed ascorbic acid (vitamin C) 2 tab PO DAILY PRN 07/15/12 01/22/21 chromium picolinate 1,000 mcg PO daily prn 08/13/14 01/22/21 pen needle, diabetic 32 gauge x #100 each 04/17/19 01/22/21 aspirin 81 mg tablet,delayed 81 mg PO DAILY 06/20/19 01/22/21 release docusate sodium [Colace] 100 mg PO BID #60 cap 10/14/19 01/22/21 magnesium oxide 400 mg PO DAILY #10 tab 10/14/19 01/22/21 sennosides [Senokot] 1 tab PO BID PRN PRN #60 tab 10/14/19 01/22/21 acetaminophen 500 mg PO Q4H PRN PRN #0 cap 01/30/20 01/22/21 nitroglycerin 0.4 mg sublingual 0.4 mg SUBLINGUAL Q 5 MIN PRN #25 05/16/20 01/22/21 tablet tab-cap ketoconazole 2 % topical cream 1 applic TOPICAL QPM PRN gm 07/08/20 01/22/21 lisinopril 5 mg tablet 5 mg PO HS #90 tab 08/11/20 01/22/21 warfarin 5 mg tablet 2.5 - 5 mg PO DAILY #60 tab 08/11/20 01/22/21 diltiazem HCl 240 mg capsule,24 240 mg PO QAM #90 cap 09/16/20 01/22/21 hr,extended release furosemide 40 mg tablet 40 mg PO DAILY #90 tab 10/22/20 01/22/21 insulin degludec 100 unit/mL (3 16 unit SC QHS #15 ml 10/22/20 01/22/21 mL) subcutaneous pen metoprolol succinate 200 mg 200 mg PO DAILY #90 tab 10/22/20 01/22/21 tablet,extended release 24 hr Previous Rx's Medication Instructions Recorded pen needle, diabetic 32 gauge x #100 each 04/17/19 docusate sodium [Colace] 100 mg PO BID #60 cap 10/14/19 magnesium oxide 400 mg PO DAILY #10 tab 10/14/19 sennosides [Senokot] 1 tab PO BID PRN PRN #60 tab 10/14/19 acetaminophen 500 mg PO Q4H PRN PRN #0 cap 01/30/20 nitroglycerin 0.4 mg sublingual 0.4 mg SUBLINGUAL Q 5 MIN PRN #25 05/16/20 tablet tab-cap lisinopril 5 mg tablet 5 mg PO HS #90 tab 08/11/20 warfarin 5 mg tablet 2.5 - 5 mg PO DAILY #60 tab 08/11/20 diltiazem HCl 240 mg capsule,24 240 mg PO QAM #90 cap 09/16/20 hr,extended release furosemide 40 mg tablet 40 mg PO DAILY #90 tab 10/22/20 insulin degludec 100 unit/mL (3 16 unit SC QHS #15 ml 10/22/20 mL) subcutaneous pen metoprolol succinate 200 mg 200 mg PO DAILY #90 tab 10/22/20 tablet,extended release 24 hr Allergies Allergy/AdvReac Type Severity Reaction Status Date / Time Tetanus Vaccines and Toxoid Allergy Intermediate Verified 01/22/21 10:39 doxycycline AdvReac Severe GI UPSET Verified 01/22/21 10:39 verapamil AdvReac Severe dizziness Verified 01/22/21 10:39 doxazosin mesylate AdvReac Intermediate muscle Verified 01/22/21 10:39 [From Sydnee] aches atenolol AdvReac Mild leg pain Verified 01/22/21 10:39 General Stated Complaint: Palpitatns GELA: 3 Review of Systems Constitutional Constitutional: Denies fatigue, Denies fever(s), Denies headache(s) and Denies weakness Eyes Eyes: Denies change in vision ENT Ears, Nose, Mouth, and Throat: Denies headache(s) Cardiovascular Cardiovascular: Denies chest pain, Reports palpitations and Reports dyspnea (When heart is racing) Respiratory Respiratory: Denies cough and Reports dyspnea (When heart is racing) Gastrointestinal Gastrointestinal: Denies abdominal pain, Denies nausea and Denies vomiting Genitourinary Genitourinary: Denies dysuria Musculoskeletal Musculoskeletal: Reports back pain (chronic), Denies numbness and Denies tingling Integumentary/Breasts Skin/Breast: Denies rash Neurologic Neurologic: Denies headache(s), Denies numbness, Denies tingling and Denies weakness Endocrine Endocrine: Denies fatigue and Reports palpitations Hematologic/Lymphatic Hematologic/Lymphatic: Denies easy bleeding and Denies easy bruising [facility] Medical History Acute on chronic systolic heart failure All medications reviewed Arthritis ASCVD (arteriosclerotic cardiovascular disease) (04/22/15) [place] with out of hosp cardiac arrest LAD stent, LVEF 35% Atrial fibrillation (05/27/11) paroxysmal Oct 2009 Atrial fibrillation with rapid ventricular response Carpal tunnel syndrome on both sides s/p Left ECTR 01/30/2020 CHF (congestive heart failure) Chronic HFrEF (heart failure with reduced ejection fraction) Chronic low back pain Complementary medicine COVID-19 ruled out by clinical criteria DNI (do not intubate) DNR (do not resuscitate) Dyspnea Elevated troponin Essential hypertension (01/04/13) echo 2007 LV[facility] uncontrolled BP (neg w/u for pheo) Excessive vitamin intake her naturopathic remedies have many times more than DISTRIBUTION ANALYST of vitamins Fatigue Foot drop, left GERD (gastroesophageal reflux disease) Goals of care, counseling/discussion Hyperlipidemia Hypertensive retinopathy Hyponatremia Impaired left ventricular function (~05/2019) [facility]; 35% Leg length discrepancy Lives alone Low back pain Lumbar stenosis Mild obstructive sleep apnea (11/17/15) [facility] NSTEMI (non-ST elevated myocardial infarction) (~05/2019) [facility] Palliative care patient Pedal edema POLST (Physician Orders for Life-Sustaining Treatment) Refusal of blood transfusions as patient is Shinto Renal insufficiency Type II diabetes mellitus with complication, uncontrolled (05/14/14) UTI (urinary tract infection) Vaccine counseling encouraged her to take COVID-19 vaccine; unlikely she will Surgical History History of appendectomy History of carpal tunnel surgery of left wrist (01/30/20) History of right hip replacement Family History Brother Cancer Brother Cancer Leukemia Mother Asthma Sister Cancer Brother Dementia lives in SNF Son Prostate cancer Fall from ladder Son Paraplegic spinal paralysis motor vehicle crash Son No problems noted. Son No problems noted. 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 [employer] Pets and animals: Yes (one cat, Fancy) Pets and animals: cat(s) Current gender identity: female What is your relationship status?: How often do you talk on the phone with friends or family?: three or more times per week How often do you get together with friends or relatives?: three or more times per week How often do you attend adventist or sikhism services?: 4 or more times per year Panel score (0-1 are the most socially isolated patients): 2 What type of physical activity do you participate in: assisted ambulation Duration: 15-30 minutes/day Frequency: does not exercise Faviola/Presybeterian: Shinto Special faviola needs: Yes (no transfusion) Agree to transfusion: No Seatbelt use: always Drive intox or ride w/intox local combination truck 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 in 2001. Linda's family hires [employer] to help with housework mostly. Hip pain better since her surgery with Dr Stovall. Lately, her biggest health problems have been chronic dyspnea, low exercise tolerance. Would like to go outside more but NEEDS BIG WHEELED walker, suitable for outdoors walking. Not going outside much these days and would like to. Dyspepsia better with chiropractic and naturopathic care, per Linda. Exam Const General: cooperative, healthy appearing, comfortable and no acute distress Orientation: alert, awake and oriented x3 HENMT Head: normal to inspection, normocephalic and atraumatic Face and sinus: normal facial exam Mouth: moist mucous membranes Eyes General: appearance normal, both eyes and all related structures Conjunctivae: conjunctivae normal Neck Neck: normal visual inspection, trachea midline and supple Resp Effort & Inspection: normal respiratory effort and able to speak in complete sentences Auscultation: clear to auscultation bilaterally Cardio Rate: regular rate (80's) Rhythm: regular rhythm (Do not appreciate A. fib) GI Inspection: normal to inspection Palpation: soft, not firm, no guarding, no pulsatile masses and nontender Back/Spine/Pelvis Back: No back tenderness Skin General skin exam: no rashes or lesions noted Neuro General: patient alert, patient awake, moves all extremities and no focal motor deficits Cognition: normal cognition Speech: speech normal Motor: muscle tone normal throughout Sensory Exam: no sensory deficits noted Extrem General: full ROM, capillary refill normal, no calf tenderness and pedal edema bilaterally non-pitting and 1+ (baseline per Pt. Neg Margo's bilat) Psych Appearance: grossly normal Mental Status: mental status grossly normal Course Vital Signs Vital signs: Vital Signs Temperature 36.7 C 01/22/21 11:51 Pulse 80 01/22/21 11:51 Respiratory Rate 20 01/22/21 11:51 Blood Pressure 144/105 H 01/22/21 11:51 Pulse Oximetry 97 01/22/21 11:51 Temperature 36.7 C 01/22/21 11:51 Temperature Source Temporal Artery Scan 01/22/21 11:51 Pulse 80 01/22/21 11:51 Respiratory Rate 20 01/22/21 11:51 Blood Pressure 144/105 H 01/22/21 11:51 Blood Pressure Position Sitting 01/22/21 11:51 Pulse Oximetry 97 01/22/21 11:51 Oxygen Delivery Method Room Air 01/22/21 11:51 Oxygen Flow Rate 0 01/22/21 11:51 Pain Level 0 01/22/21 11:51
[2021-01-22 13:12] LABS: Abs Immature Grans 0.03 10^3/uL (0.0-0.06); Absolute Basophil Count 0.07 10^3/uL (0.0-0.2); Absolute Eosinophil Count 0.12 10^3/uL (0.0-0.7); Absolute Lymphocyte Count 1.58 10^3/uL (1.2-3.4); Absolute Monocyte Count 0.76 10^3/uL (0.1-0.8); Absolute Neutrophil Count 6.04 10^3/uL (1.2-6.7); Basophils % 0.8; Eosinophils % 1.4; HCT 37.3 % (36.0-46.0); HGB 12.1 g/dL (11.2-15.7); Immature Grans % 0.3; Lymphocytes % 18.4; MCH 29.7 pg (27.0-33.0); MCHC 32.4 % (32.0-36.0); MCV 91.6 fL (80-95); MPV 11.5 fL (8.0-11.0); Monocytes % 8.8; Neutrophils % 70.3; Nucleated RBC 0 %; Platelet Count 220 10^3/uL (130-400); RBC 4.07 10^6/uL (3.93-5.22); RDW 13.9 % (11.7-14.6); RDW-SD 47.2 fL
[2021-01-22 13:33] LABS: ALT 26 U/L (14-59); AST 21 U/L (15-37); Albumin 2.9 g/dL (3.4-5.0); Alkaline Phosphatase 89 U/L (46-116); Anion Gap 6.3 mmol/L (3-11); BUN 29 mg/dL (7-18); Bilirubin, Total 0.3 mg/dL (0.2-1.0); CO2 31.7 mmol/L (21.0-32.0); CREATININE 1.3 mg/dL (0.55-1.02); Calcium 8.4 mg/dL (8.5-10.1); Chloride 102 mmol/L (98-107); Estimated GFR 39.02 (mL/min/1.73m2); Glucose 236 mg/dL (74-106); Magnesium 2.1 mg/dL (1.8-2.4); Potassium 3.3 mmol/L (3.5-5.1); Sodium 140 mmol/L (136-145); TSH (W/Ref FT4) 3.25 uIU/mL (0.36-3.74); Total Protein 6.6 g/dL (6.4-8.2)
[2021-01-22 13:36] LABS: Troponin I 0.19 ng/mL (<0.06)
[2021-01-22] MEDS: Aspirin 81 MG CHEW 243 MG CH (13:54)
--- NOTE | 2021-01-22 14:35 | DI.RAD_ITS ---
Exam(s) XR CHEST 2V PA LATERAL EXAM: XR CHEST 2V PA LATERAL CLINICAL HISTORY: afib with rvr. TECHNIQUE: 2D digital imaging was performed. COMPARISON: CR,XR XR CHEST 2V PA LATERAL from 08/23/2020 FINDINGS: Heart size upper normal. Coronary artery stent is noted. Mediastinum is not widened. Lungs are clear. No infiltrates nor pleural effusions. No pulmonary edema. IMPRESSION: No acute pulmonary findings.Coronary artery stent noted in the LAD. DATA REPOSITORY: RADIATION DOSE DELIVERED:
--- NOTE | 2021-01-22 14:45 | RT.EKG_ITS ---
APPROVED REPORT Exam: Resting ECG Reason for Exam: elevated trop Patient Location: E HR:70 bpm ECG Measurements Heart Rate 70 AXIS [place] [id number] P [id number] QRSd 134 QRS -34 QT 436 T 143 QTc 475 Conclusion Atrial flutter with varied AV block,...A-rate 283, varied AV conduction Ventricular premature complex...V complex w/ short R-R interval Left bundle branch block...QRSd>120, broad/notched R
[2021-01-22 15:10] LABS: Troponin I 0.19 ng/mL (<0.06)
== END 2021-01-22 15:45 | disposition home or self-care (01) ==
PROVIDERS: Emergency Provider Physician Assistant; PCP Family Medicine
DX: R79.89 Other specified abnormal findings of blood chemistry (principal); I48.92 Unspecified atrial flutter
CPT/HCPCS: 36415; 80053; 93005; 99285; 71046; 83735; 84443; 84484; 85025; 93010

== ENCOUNTER → 2021-02-10 10:24 | Outpatient (BNVA) | payer MEDICARE, OTHER, SELFPAY | PROVIDERS: PCP Family Medicine; Referring Provider Family Medicine; Visit Provider Internal Medicine Cardiovascular Disease | DX: I48.11 Longstanding persistent atrial fibrillation (principal); I25.10 Atherosclerotic heart disease of native coronary artery without angina pectoris; Z79.01 Long term (current) use of anticoagulants; I50.22 Chronic systolic (congestive) heart failure | CPT/HCPCS: 99214; 99213 ==

== ENCOUNTER 2021-03-05 02:33 | Outpatient (CLI) | payer MEDICARE, OTHER, SELFPAY ==
[2021-03-05 10:52] LABS: INR 2.4 (0.9-1.1); Prothrombin Time 23.5 sec (9.3-11.0)
== END 2021-03-05 02:34 | disposition home or self-care (01) ==
LOC: LBO 02:34
PROVIDERS: PCP Family Medicine; Visit Provider Family Medicine
DX: Z79.01 Long term (current) use of anticoagulants (principal)
CPT/HCPCS: 36415; 85610

== ENCOUNTER 2021-03-16 13:19 | Inpatient (IN) | payer MEDICARE, OTHER, SELFPAY ==
[2021-03-16] VITALS (12 sets, daily range): BP systolic 138–192; BP diastolic 78–109; PULSE 69–110; RESP 16–29; TEMP 36.6–37; O2SAT 94–97
--- NOTE | 2021-03-16 13:45 | DI.CT_ITS ---
Exam(s) CT HEAD WO EXAM: CT HEAD WO CLINICAL HISTORY: AMS, ? CVA. TECHNIQUE: Imaging Protocol: Axial computed tomography images with coronal and sagittal reformatted images were created and reviewed COMPARISON: CT CT HEAD WO from 05/07/2020 FINDINGS: Ventricles and Extra axial spaces: Normal in size and morphology for the patient's age. Hemorrhage: None. Cerebral parenchyma: Mild atrophy. White matter changes consistent with small vessel disease. No significant change from previous exam. Midline shift: None. Brainstem/Cerebellum: Normal. Calvarium: Normal. Visualized Paranasal sinuses/Mastoids: Clear. IMPRESSION: No acute abnormality. RADIATION DOSE DELIVERED: 779.28mGy.cm Total DLP 779.28mGy.cm Total DLP DATA REPOSITORY: All CT scans at this facility are submitted to the National Radiology Data Registry (NRDR) Dose Index Registry (DIR) with the [employer] (ACR). RADIATION OPTIMIZATION: All CT scans at this facility use at least one of these dose optimization te chniques: automated exposure control; mA and/or kV adjustment per patient size (includes targeted exa ms where dose is matched to clinical indication); or iterative reconstruction.
--- NOTE | 2021-03-16 13:45 | RT.EKG_ITS ---
APPROVED REPORT Exam: Resting ECG Reason for Exam: AMS Patient Location: E HR:70 bpm ECG Measurements Heart Rate [address] 206 P 90 QRSd 148 QRS -39 QT 436 T 140 QTc 470 Conclusion Second degree AV block, Mobitz II...multiple P waves Atrial premature complexes in couplets...pair SV complexes w/ short R-R Left bundle branch block...QRSd>120, broad/notched R likely atrial flutter at rate 70, left bundle branch block (seen on prior EKG), no STEMI, nondiagnost ic EKG
[2021-03-16 14:03] LABS: Lactate 1.4 mmol/L (0.6-1.4)
[2021-03-16 14:04] LABS: Abs Immature Grans 0.02 10^3/uL (0.0-0.06); Absolute Basophil Count 0.06 10^3/uL (0.0-0.2); Absolute Eosinophil Count 0.17 10^3/uL (0.0-0.7); Absolute Lymphocyte Count 1.42 10^3/uL (1.2-3.4); Absolute Monocyte Count 0.79 10^3/uL (0.1-0.8); Absolute Neutrophil Count 5.05 10^3/uL (1.2-6.7); Basophils % 0.8; Eosinophils % 2.3; HCT 36.7 % (36.0-46.0); HGB 12.1 g/dL (11.2-15.7); Immature Grans % 0.3; Lymphocytes % 18.9; MCV 91.1 fL (80-95); Monocytes % 10.5; Neutrophils % 67.2; Nucleated RBC 0 %; Platelet Count 175 10^3/uL (130-400); RBC 4.03 10^6/uL (3.93-5.22); RDW 13.1 % (11.7-14.6); RDW-SD 43.8 fL; WBC 7.51 10^3/uL (4.4-10.8)
[2021-03-16 14:27] LABS: INR 1.1 (0.9-1.1); Prothrombin Time 11.2 sec (9.3-11.0)
[2021-03-16 14:27] LABS: Bilirubin Negative (Negative); Blood Trace-intact (Negative); Clarity Sl Cloudy (Clear); Glucose 500 mg/dL (Negative); Ketones Negative (Negative); Leukocyte Esterase Trace (Negative); Nitrite Negative (Negative); Specific Gravity 1.025 (1.005-1.025); Urobilinogen 0.2 EU/dL (Up TO 0.2)
[2021-03-16 14:35] LABS: Bacteria Many HPF (Negative); C & S Indicated? Yes; Casts 0-2 Hyaline LPF (Negative); Crystals Negative HPF (Negative); Epithelial Cells Few HPF (Negative); Mucus Heavy (Negative)
[2021-03-16 14:54] LABS: ALT 27 U/L (14-59); AST 19 U/L (15-37); Albumin 3.1 g/dL (3.4-5.0); Alkaline Phosphatase 102 U/L (46-116); Anion Gap 7.5 mmol/L (3-11); BUN 20 mg/dL (7-18); Bilirubin, Total 0.3 mg/dL (0.2-1.0); CO2 31.5 mmol/L (21.0-32.0); CREATININE 1.3 mg/dL (0.55-1.02); Calcium 8.7 mg/dL (8.5-10.1); Chloride 99 mmol/L (98-107); Estimated GFR 38.93 (mL/min/1.73m2); Glucose 307 mg/dL (74-106); Sodium 138 mmol/L (136-145); Total Protein 6.8 g/dL (6.4-8.2)
[2021-03-16 14:56] LABS: Potassium 2.5 mmol/L (3.5-5.1); Troponin I 248 ng/L (<or=60)
--- NOTE | 2021-03-16 15:00 | DI.RAD_ITS ---
Exam(s) XR CHEST 2V PA LATERAL EXAM: XR CHEST 2V PA LATERAL CLINICAL HISTORY: AMS TECHNIQUE: 2D digital imaging was performed. COMPARISON: CR XR CHEST 2V PA LATERAL from 01/22/2021 FINDINGS: MEDIASTINUM: Tortuous aorta.. HEART: Enlarged, stable. Coronary artery stents and mitral valve calcifications. PULMONARY VASCULATURE: Normal. LUNGS: Clear. PLEURAL SPACE: No pleural effusion or pneumothorax. BONE:Degenerative changes in the thoracic spine. IMPRESSION: No acute abnormality. DATA REPOSITORY: RADIATION DOSE DELIVERED:
[2021-03-16 15:04] LABS: Source Nasal/Nares
--- NOTE | 2021-03-16 15:08 | DI.MRI_ITS ---
Exam(s) MR BRAIN WO EXAM: MR BRAIN WO CLINICAL HISTORY: AMS, ?CVA TECHNIQUE: Multiplanar multisequence MRI of the brain was performed. COMPARISON: CT CT HEAD WO from 03/16/[address] HEAD WO from 03/16/2021 FINDINGS: Exam is limited by patient motion. VENTRICLES AND EXTRA AXIAL SPACES: Normal in size and morphology for the patient's age. MIDLINE SHIFT: None. CEREBRAL PARENCHYMA: Small to moderate to moderate size focus of restricted diffusion consistent wit h an acute infarct in the left parietal lobe.. Mild atrophy. Diffuse bilateral high signal in the p eriventricular white matter without restricted diffusion, consistent with chronic microvascular segura es. Scattered foci of punctate signal void bilaterally in the cerebellum, basal ganglia and midbrai n, which could indicate amyloid angiopathy or old hemosiderin deposition related to previous micro he morrhages. No space-occupying lesion identified. HEMORRHAGE: No acute hemorrhage.. VISUALIZED PARANASAL SINUSES/MASTOIDS:Clear. [place] OF HO: Normal flow void. PITUITARY GLAND: Unremarkable. OTHER FINDINGS: None. 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 Findings called to Dr. Porter of the emergency department. DATA REPOSITORY:
--- NOTE | 2021-03-16 15:17 | ED.GENADUL_ITS ---
Discharge Plan Disposition Patient Disposition: [facility] INPATIENT Condition: Improving Discharge Details Clinical Impression: Acute CVA (cerebrovascular accident) Admit Date/Time: 03/16/21 18:24 Admit Provider: Rakesh Soto Attending Provider: Rakesh Soto Primary Care Provider: Rad Yeh ED Provider: Venancio Cheema Discharge Data Discharge Date/Time-TO BE ENTERED AT DEPARTURE: 03/16/21 19:06 Medical Decision Making <Stacie Moore MD - Last Filed: 03/27/21 08:34> Linda Bautista is an 86-year-old woman with history of atrial fibrillation, CKD, CHF, hypertension, coronary artery disease, diabetes who presented to emergency department with onset of feeling unwell at some point this morning prior to 10:00. Patient unable to elaborate further. On exam patient is nontoxic-appearing, there is no neurologic deficit other than apparent word finding difficulty and mild aphasia versus encephalopathy. Concern for CVA, acute emergent intracranial trauma, metabolic/electrolyte derangement, possible early sepsis, other. Doubt acute coronary syndrome. Exam/history at this time is not consistent with bacterial meningitis, acute aortic pathology, acute emergent intra-abdominal pathology. Patient is not a candidate for thrombolysis. Plan for IV placement, EKG, CT head, screening labs, telemetry, chest x-ray. Will monitor and reassess. Labs reviewed, potassium 2.5, white blood cell count 7.51, hemoglobin 12.1, lactate 1.4, creatinine 1.3, troponin 248. Patient without chest pain, troponin has been elevated in the past, will trend. Plan to replete potassium, magnesium ordered and pending. CT head negative. Plan for CTA, MRI for further evaluation of likely CVA. Patient signed out to Dr. Cheema at time of shift change with imaging pending. Medical Records Medical records reviewed: Yes I reviewed the patient's medical records. Imaging Data Radiologic Study: Attestation: I personally reviewed and interpreted this imaging study as follows: Radiologist's impression: EXAM: CT HEAD WO CLINICAL HISTORY: AMS, ? CVA. TECHNIQUE: Imaging Protocol: Axial computed tomography images with coronal and sagittal reformatted images were created and reviewed COMPARISON: CT CT HEAD WO from 05/07/2020 FINDINGS: Ventricles and Extra axial spaces: Normal in size and morphology for the patient's age. Hemorrhage: None. Cerebral parenchyma: Mild atrophy. White matter changes consistent with small vessel disease. No significant change from previous exam. Midline shift: None. Brainstem/Cerebellum: Normal. Calvarium: Normal. Visualized Paranasal sinuses/Mastoids: Clear. IMPRESSION: No acute abnormality. Lab Data Lab results reviewed: Yes I reviewed the patient's lab results. ECG Data Attestation: I personally reviewed and interpreted this ECG (s) as follows: Interpretation: EKG shows likely atrial flutter at rate 70, left bundle branch block (seen on prior EKG), no STEMI, nondiagnostic EKG <Venancio Cheema MD - Last Filed: 03/16/21 19:54> Received signout from Dr. Moore. Please see her note regarding details of the initial presentation, exam and plan of care. Patient has evidence of acute infarct of the left parietal lobe on MRI. She does seem to be improving. She has again low-level elevated troponin which appears to be chronic. Will discuss admission with on-call hospitalist. HPI <Stacie Moore MD - Last Filed: 03/27/21 08:34> General Mode of arrival: EMS . Date/Time Provider Initiated Documentation: 03/16/21 13:41 . Limitations to Documentation: altered mental status . Information obtained by: patient, RN notes reviewed and old records reviewed . HPI Narrative: Linda Bautista is an 86-year-old woman with history of atrial fibrillation, CKD CHF, hypertension, coronary artery disease, diabetes presenting to the emergency department with malaise. Patient reports that she woke up feeling well this morning, and then sometime before 10 AM she states something went wrong. Patient seems to have difficulty with word finding, making history somewhat difficult to obtain. Patient states that she was fine before, and then something happened. She denies fall or trauma. Denies any pain. Denies cough, shortness of breath, fever, vomiting, diarrhea, numbness, weakness. Patient states that she has been eating and drinking as usual. Related Data Home Medications Medication Instructions Recorded Confirmed ascorbic acid (vitamin C) 2 tab PO DAILY PRN 07/15/12 03/24/21 chromium picolinate 1,000 mcg PO daily prn 08/13/14 03/24/21 pen needle, diabetic 32 gauge x #100 each 04/17/19 03/24/21 aspirin 81 mg tablet,delayed 81 mg PO DAILY 06/20/19 03/24/21 release docusate sodium [Colace] 100 mg PO BID #60 cap 10/14/19 03/24/21 magnesium oxide 400 mg PO DAILY #10 tab 10/14/19 03/24/21 sennosides [Senokot] 1 tab PO BID PRN PRN #60 tab 10/14/19 03/24/21 acetaminophen 500 mg PO Q4H PRN PRN #0 cap 01/30/20 03/24/21 nitroglycerin 0.4 mg sublingual 0.4 mg SUBLINGUAL Q 5 MIN PRN #25 05/16/20 03/24/21 tablet tab-cap ketoconazole 2 % topical cream 1 applic TOPICAL QPM PRN gm 07/08/20 03/24/21 insulin degludec 100 unit/mL (3 16 unit SC QHS #15 ml 10/22/20 03/24/21 mL) subcutaneous pen atorvastatin 40 mg PO QPM #30 tab 03/19/21 03/24/21 metoprolol succinate 200 mg PO BID #90 tab 03/19/21 03/24/21 potassium chloride 20 meq PO TID #90 cap 03/19/21 03/24/21 torsemide 20 mg PO BID #60 tab 03/19/21 03/24/21 valsartan [Diovan] 20 mg PO BID #60 tab 03/19/21 03/24/21 warfarin 8 mg PO DAILY #60 tab 03/19/21 03/24/21 warfarin [Jantoven] 8 mg PO QPM #60 tab 03/19/21 03/24/21 Previous Rx's Medication Instructions Recorded pen needle, diabetic 32 gauge x #100 each 04/17/19 docusate sodium [Colace] 100 mg PO BID #60 cap 10/14/19 magnesium oxide 400 mg PO DAILY #10 tab 10/14/19 sennosides [Senokot] 1 tab PO BID PRN PRN #60 tab 10/14/19 acetaminophen 500 mg PO Q4H PRN PRN #0 cap 01/30/20 nitroglycerin 0.4 mg sublingual 0.4 mg SUBLINGUAL Q 5 MIN PRN #25 05/16/20 tablet tab-cap insulin degludec 100 unit/mL (3 16 unit SC QHS #15 ml 10/22/20 mL) subcutaneous pen atorvastatin 40 mg PO QPM #30 tab 03/19/21 metoprolol succinate 200 mg PO BID #90 tab 03/19/21 potassium chloride 20 meq PO TID #90 cap 03/19/21 torsemide 20 mg PO BID #60 tab 03/19/21 valsartan [Diovan] 20 mg PO BID #60 tab 03/19/21 warfarin 8 mg PO DAILY #60 tab 03/19/21 warfarin [Jantoven] 8 mg PO QPM #60 tab 03/19/21 Allergies Allergy/AdvReac Type Severity Reaction Status Date / Time Tetanus Vaccines and Toxoid Allergy Intermediate Verified 03/24/21 10:33 doxycycline AdvReac Severe GI UPSET Verified 03/24/21 10:33 verapamil AdvReac Severe dizziness Verified 03/24/21 10:33 doxazosin mesylate AdvReac Intermediate muscle Verified 03/24/21 10:33 [From Cardura] aches atenolol AdvReac Mild leg pain Verified 03/24/21 10:33 General Stated Complaint: Palpitatns GELA: 2 Review of Systems <Stacie Moore MD - Last Filed: 03/27/21 08:34> Narrative: Constitutional: denies fevers Eyes: denies eye pain ENT: denies ear pain, dental pain, sore throat Cardiovascular: denies chest pain Respiratory: denies SOB, cough GI: denies abdominal pain, vomiting, diarrhea : denies flank pain MSK: denies back pain, neck pain, arthralgias, myalgias Skin: denies rash Neuro: denies headaches, numbness, weakness PFS <Stacie Moore MD - Last Filed: 03/27/21 08:34> All Active Problems Atrial flutter (Acute) Acute CVA (cerebrovascular accident) (Acute) Elevated troponin (Acute) Right rotator cuff tear (Acute) All medications reviewed (Acute) Excessive vitamin intake (Chronic) her naturopathic remedies have many times more than 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 CKD (chronic kidney disease), stage II (Chronic) Eructation (Acute) Tachycardia (Acute) Vaccine counseling (Acute) encouraged her to take COVID-19 vaccine; unlikely she will Fatigue (Acute) Dyspnea (Acute) Sensorineural hearing loss of both ears (Acute) Prerenal azotemia (Acute) Hearing loss (Acute) History of carpal tunnel surgery of left wrist (Acute 01/30/20) Lives alone (Chronic) Leg length discrepancy (Chronic) History of right hip replacement (Chronic) Pain in left thigh (Chronic) Goals of care, counseling/discussion (Acute) Ambulatory dysfunction (Acute) Hyponatremia (Chronic) 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) Iron deficiency anemia (Chronic) Postoperative anemia due to acute blood loss (Acute) Acute deep vein thrombosis (DVT) of right lower extremity (Acute) DNI (do not intubate) (Acute) DNR (do not resuscitate) (Acute) POLST (Physician Orders for Life-Sustaining Treatment) (Chronic) Refusal of blood transfusions as patient is Mosque (Acute) Complementary medicine (Chronic) Palliative care patient (Chronic) Renal insufficiency (Chronic) Fracture of head of right femur (Chronic) s/p R Anterior DARIEL (10/04/19) Constipation (Acute) Chronic low back pain (Chronic) Impaired left ventricular function (Acute ~05/2019) [facility] [place] [facility] [place] 35[place] Right knee pain (Acute) Right groin pain (Acute) Tachycardia (Acute) CHF (congestive heart failure) (Chronic) Hypertensive retinopathy (Acute) Hypertension (Chronic) Retinopathy, background, nonproliferative, mild (Acute 01/01/16) Mild obstructive sleep apnea (Acute 11/17/15) [facility] Hyperlipidemia (Chronic) Atrial fibrillation (Chronic 05/27/11) paroxysmal Oct 2009 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) MA with out of hosp cardiac arrest LAD stent, LVEF 35% Carpal tunnel syndrome on both sides (Acute) s/p Left ECTR 01/30/2020 Lumbar stenosis (Acute) Foot drop, left (Acute) Low back pain (Acute) Diabetes mellitus out of control (Acute) Noncompliance with medication regimen (Acute 09/26/12) Spinal stenosis at L4-L5 level (Chronic) Chronic anticoagulation (Chronic) Counseling on health promotion and disease prevention (Acute) Medical History Acute on chronic systolic heart failure Arthritis Atrial fibrillation with rapid ventricular response COVID-19 ruled out by clinical criteria Diabetes mellitus Essential hypertension (01/04/13) echo 2008 [facility] uncontrolled BP (neg w/u for pheo) GERD (gastroesophageal reflux disease) Heart failure with reduced ejection fraction NSTEMI (non-ST elevated myocardial infarction) (~05/2019) [facility] [place] [facility] [place] Pedal edema Type II diabetes mellitus with complication, uncontrolled (05/14/14) UTI (urinary tract infection) Surgical History History of appendectomy Family History Brother Cancer Brother Cancer Leukemia Mother Asthma Sister Cancer Brother Dementia lives in SNF Son Prostate cancer Fall from ladder Son Paraplegic spinal paralysis motor vehicle crash Son No problems noted. Son No problems noted. 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 [employer] Pets and animals: Yes (one cat, Fancy) Pets and animals: cat(s) Current gender identity: female What is your relationship status?: How often do you talk on the phone with friends or family?: three or more times per week How often do you get together with friends or relatives?: three or more times per week How often do you attend presybeterian or oriental orthodox services?: 4 or more times per year Panel score (0-1 are the most socially isolated patients): 2 What type of physical activity do you participate in: assisted ambulation Duration: 15-30 minutes/day Frequency: does not exercise Faviola/Baptism: Mosque Special faviola needs: Yes (no transfusion) Agree to transfusion: No Seatbelt use: always Drive intox or ride w/intox truss driver helper: No Do you feel safe at home: Yes Do you feel safe in your relationship?: Yes Additional Social history: Lives alone but sons and their spouses check in. in 2001. Linda's family hires [employer] to help with housework mostly. Hip pain better since her surgery with Dr Stovall. Lately, her biggest health problems have been chronic dyspnea, low exercise tolerance. Would like to go outside more but NEEDS BIG WHEELED walker, suitable for outdoors walking. Not going outside much these days and would like to. Dyspepsia better with chiropractic and naturopathic care, per Linda. Exam <Stacie Moore MD - Last Filed: 03/27/21 08:34> Narrative Exam Narrative: Constitutional: well and [id number], pleasant, conversing normally, appears somewhat anxious HENT: head atraumatic/normocephalic/normal inspection, mucous membranes moist Eyes: conjunctiva normal, sclera normal, pupils 3mm b/l, equal round reactive to light and accommodation, extraocular movements appear intact, however patient not following all commands, no nystagmus Neck: no stridor, normal ROM, trachea midline Chest: normal inspection Resp: normal work of breathing, speaking in full sentences Cardio: normal rate, normal rhythm GI: abdomen soft, non-tender, non-distended Back: normal inspection, no rash Skin: warm, dry, normal color, no rash Neuro: alert, not altered, cranial nerves II through XII intact, positive expressive aphasia, motor 5 out of 5 throughout, no pronator drift, normal tone Ext: 3+ pitting edema bilateral lower extremities Psych: normal mood, normal affect, normal behavior Course <Stacie Moore MD - Last Filed: 03/27/21 08:34> Vital Signs Vital signs: Vital Signs Temperature 36.9 C 03/16/21 13:25 Pulse 70 03/16/21 13:25 Respiratory Rate 18 03/16/21 13:25 Blood Pressure 168/95 H 03/16/21 13:25 Pulse Oximetry 97 03/16/21 13:25 Temperature 36.9 C 03/16/21 13:25 Temperature Source Skin 03/16/21 13:25 Pulse 70 03/16/21 13:25 Respiratory Rate 18 03/16/21 13:25 Respiratory Effort Non-Labored 03/16/21 13:51 Respiratory Depth Normal 03/16/21 13:51 Blood Pressure 168/95 H 03/16/21 13:25 Blood Pressure Position Sitting 03/16/21 13:25 Pulse Oximetry 97 03/16/21 13:25 Oxygen Delivery Method Room Air 03/16/21 13:25 Oxygen Flow Rate 0 03/16/21 13:25 Pain Level 0 03/16/21 13:25 Comment 03/16/21 13:25 Lab/Test Results Lab/Test Results: 03/16/21 14:14 Urine - Reflex from Ua Urine Culture - Pending Laboratory Tests Range/Units 03/16/21 03/16/21 03/16/21 13:45 13:45 13:45 WBC (4.4-10.8) 10^3/uL RBC (3.93-5.22) 10^6/uL Hgb (11.2-15.7) g/dL Hct (36.0-46.0) % MCV (80-95) fL MCH (27.0-33.0) pg MCHC (32.0-36.0) % RDW (11.7-14.6) % Plt Count (130-400) 10^3/uL MPV (8.0-11.0) fL Immature Gran % Neutrophils % Lymphocytes % Monocytes % Eosinophils % Basophils % Nucleated RBC % % Absolute Neutrophils (1.2-6.7) 10^3/uL Absolute Lymphocytes (1.2-3.4) 10^3/uL Absolute Monocytes (0.1-0.8) 10^3/uL Absolute Eosinophils (0.0-0.7) 10^3/uL Absolute Basophils (0.0-0.2) 10^3/uL PT (9.3-11.0) sec 11.2 H INR (0.9-1.1) 1.1 VBG Lactate (0.6-1.4) mmol/L 1.4 Sodium (136-145) mmol/L 138 Potassium (3.5-5.1) mmol/L 2.5 L* Chloride (98-107) mmol/L 99 Carbon Dioxide (21.0-32.0) mmol/L 31.5 Anion Gap (3-11) mmol/L 7.5 BUN (7-18) mg/dL 20 H Creatinine (0.55-1.02) mg/dL 1.3 H Estimated GFR/1.73 m2 (mL/min/1.73m2) 38.93 Glucose (74-106) mg/dL 307 H Calcium (8.5-10.1) mg/dL 8.7 Total Bilirubin (0.2-1.0) mg/dL 0.3 AST (15-37) U/L 19 ALT (14-59) U/L 27 Alkaline Phosphatase (46-116) U/L 102 Troponin I (<or=60) ng/L 248 H* Total Protein (6.4-8.2) g/dL 6.8 Albumin (3.4-5.0) g/dL 3.1 L Urine Color (Yellow) Urine Clarity (Clear) Urine pH (5-8) Ur Specific [place] (1.005-1.025) Urine Protein (Negative) mg/dL Urine Ketones (Negative) mg/dL Urine Blood (Negative) Urine Nitrite (Negative) Urine Bilirubin (Negative) Urine Urobilinogen (Up TO 0.2) EU/dL Ur Leukocyte Esterase (Negative) Urine RBC (0-2) HPF Urine WBC (0-5) HPF Ur Epithelial Cells (Negative) HPF Urine Crystals (Negative) HPF Urine Bacteria (Negative) HPF Urine Casts (Negative) LPF Urine Mucus (Negative) Ur Culture Indicated? Urine Glucose (Negative) mg/dL COVID-19 Source Range/Units 03/16/21 03/16/21 03/16/21 13:45 14:14 15:00 WBC (4.4-10.8) 10^3/uL 7.51 RBC (3.93-5.22) 10^6/uL 4.03 Hgb (11.2-15.7) g/dL 12.1 Hct (36.0-46.0) % 36.7 MCV (80-95) fL 91.1 MCH (27.0-33.0) pg 30.0 MCHC (32.0-36.0) % 33.0 RDW (11.7-14.6) % 13.1 Plt Count (130-400) 10^3/uL 175 MPV (8.0-11.0) fL Immature Gran % 0.3 Neutrophils % 67.2 Lymphocytes % 18.9 Monocytes % 10.5 Eosinophils % 2.3 Basophils % 0.8 Nucleated RBC % % 0 Absolute Neutrophils (1.2-6.7) 10^3/uL 5.05 Absolute Lymphocytes (1.2-3.4) 10^3/uL 1.42 Absolute Monocytes (0.1-0.8) 10^3/uL 0.79 Absolute Eosinophils (0.0-0.7) 10^3/uL 0.17 Absolute Basophils (0.0-0.2) 10^3/uL 0.06 PT (9.3-11.0) sec INR (0.9-1.1) VBG Lactate (0.6-1.4) mmol/L Sodium (136-145) mmol/L Potassium (3.5-5.1) mmol/L Chloride (98-107) mmol/L Carbon Dioxide (21.0-32.0) mmol/L Anion Gap (3-11) mmol/L BUN (7-18) mg/dL Creatinine (0.55-1.02) mg/dL Estimated GFR/1.73 m2 (mL/min/1.73m2) Glucose (74-106) mg/dL Calcium (8.5-10.1) mg/dL Total Bilirubin (0.2-1.0) mg/dL AST (15-37) U/L ALT (14-59) U/L Alkaline Phosphatase (46-116) U/L Troponin I (<or=60) ng/L Total Protein (6.4-8.2) g/dL Albumin (3.4-5.0) g/dL Urine Color (Yellow) Yellow Urine Clarity (Clear) Sl Cloudy Urine pH (5-8) 7.0 Ur Specific [place] (1.005-1.025) 1.025 Urine Protein (Negative) mg/dL >=300 H Urine Ketones (Negative) mg/dL Negative Urine Blood (Negative) Trace-intact H Urine Nitrite (Negative) Negative Urine Bilirubin (Negative) Negative Urine Urobilinogen (Up TO 0.2) EU/dL 0.2 Ur Leukocyte Esterase (Negative) Trace H Urine RBC (0-2) HPF 3-5 H Urine WBC (0-5) HPF 5-10 Ur Epithelial Cells (Negative) HPF Few Urine Crystals (Negative) HPF Negative Urine Bacteria (Negative) HPF Many Urine Casts (Negative) LPF 0-2 Hyaline Urine Mucus (Negative) Heavy Ur Culture Indicated? Yes Urine Glucose (Negative) mg/dL 500 H COVID-19 Source Nasal/Nares Sign Out <Stacie Moore MD - Last Filed: 03/27/21 08:34> Sign Out Data: Sign Out Comment: Patient signed out to Dr. Cheema at time of change with MRI brain, CTA head/neck, repeat troponin pending Last updated by Stacie Moore MD at 03/16/21 16:00
[2021-03-16 15:33] LABS: Magnesium 2.1 mg/dL (1.8-2.4)
[2021-03-16] MEDS: Omnipaque 350 MG/ML 100 ML BTL 95 ML IJ (16:11)
--- NOTE | 2021-03-16 16:20 | DI.CT_ITS ---
Exam(s) CT BRAIN NECK CTA EXAM: CT BRAIN NECK CTA CLINICAL HISTORY: AMS, ?CVA. TECHNIQUE: Imaging Protocol: Axial CT angiography was performed with multi-slice acquisition and mu lti-planar and/or 3D reconstructions. CONTRAST MATERIAL: Intravenous: Omnipaque 350 Contrast volume:95 mL COMPARISON: CT CT HEAD WO from 03/16/[address] HEAD WO from 03/16/2021 FINDINGS: The examination is limited due to patient motion artifact. CT Head w: Ventricles and Extra axial spaces: Normal in size and morphology for the patient's age. Hemorrhage: None. Cerebral parenchyma: No acute territorial infarct is seen. There are areas of decreased attenuation in the white matter consistent with chronic microvascular ischemic disease. Midline shift: None. Brainstem/Cerebellum: Normal. Calvarium: Normal. Visualized Paranasal sinuses/Mastoids: Clear. Soft Tissues: Unremarkable. Enhancement: Unremarkable. CTA Neck W: Common Carotid: Right: No dissection, occlusion or significant stenosis. Mild atherosclerosis distally. Left: No dissection, occlusion or significant stenosis. Mild atherosclerosis distally. External Carotid: Right: No occlusion or significant stenosis. Left: No occlusion or significant stenosis. Internal Carotid: Right: No dissection, occlusion or significant stenosis. Left: No dissection, occlusion or significant stenosis. Mild atherosclerosis at its origin. Vertebral Artery: Right: No dissection, occlusion or significant stenosis. Mild atherosclerosis distally. Left: No dissection, occlusion or significant stenosis. Mild atherosclerosis through its entire arianne th. Lung Apices: Normal. Bones: Within normal limits for the patient's age. Degenerative changes in the cervical spine. 2 mm anterolisthesis of C4 on C5. Soft Tissues: Normal. Thyroid gland: There is a 0.6 cm left thyroid nodule. No associated abnormal findings are seen. No follow-up is recommended. CTA Brain W: Internal Carotid Arteries: Bilateral atherosclerosis. No significant stenosis. No evidence of occlu tyrone or aneurysm. Anterior Cerebral Arteries: Right: No aneurysm, occlusion or significant stenosis. Left: No aneurysm, occlusion or significant stenosis. Middle Cerebral Arteries: Right: No aneurysm, occlusion or significant stenosis. Left: No aneurysm, occlusion or significant stenosis. Posterior Cerebral Arteries: Right: No aneurysm, occlusion or significant stenosis. Left: No aneurysm, occlusion or significant stenosis. Vertebral Arteries: Right: No aneurysm, occlusion or significant stenosis. Left: No aneurysm, occlusion or significant stenosis. Basilar Artery: No aneurysm, occlusion or significant stenosis. IMPRESSION: 1. No large vessel occlusion or significant stenosis on the CT angiography of the head. 2. No acute intracranial process. 3. No occlusion or significant stenosis on the CT angiography of the neck. RADIATION DOSE DELIVERED: 1,146.5mGy.cm Total DLP DATA REPOSITORY: All CT scans at this facility are submitted to the National Radiology Data Registry (NRDR) Dose Index Registry (DIR) with the [employer] (ACR). RADIATION OPTIMIZATION: All CT scans at this facility use at least one of these dose optimization te chniques: automated exposure control; mA and/or kV adjustment per patient size (includes targeted exa ms where dose is matched to clinical indication); or iterative reconstruction.
[2021-03-16] MEDS: POTASSIUM CHLORIDE 20 MEQ/100 ML BAG 50 MEQ IVPB ×2 (16:27→18:39)
[2021-03-16] MEDS: Normal Saline 1,000 ML 75 ML IV (16:28)
[2021-03-16 17:22] LABS: Troponin I 272 ng/L (<or=60)
--- NOTE | 2021-03-16 17:47 | DI.VRAD_ITS ---
PROCEDURE INFORMATION: Exam: CT Angiography Head With Contrast, Arteriography Exam date and time: 03/16/2021 3:10 PM Age: 86 years old Clinical indication: Other: AMS ? CVA TECHNIQUE: Imaging protocol: Computed tomography angiography of the head with contrast. Exam focused on the arteries. 3D rendering (Not supervised by radiologist): MIP and/or 3D reconstructed images were created by the technologist. Total images: 1828 Contrast material: OMNIPAQUE 350; Contrast volume: 95 ml; Contrast route: INTRAVENOUS (IV); COMPARISON: MR BRAIN WO 03/16/2021 3:39 PM FINDINGS: ANTERIOR CIRCULATION: Right internal carotid artery: Mild atherosclerotic calcification cavernous segment right ICA. Right middle cerebral artery: Unremarkable. No occlusion or significant stenosis. No aneurysm. Right anterior cerebral artery: Unremarkable. No occlusion or significant stenosis. No aneurysm. Left internal carotid artery: Mild atherosclerotic calcification cavernous segment left ICA. Left middle cerebral artery: Unremarkable. No occlusion or significant stenosis. No aneurysm. Left anterior cerebral artery: Unremarkable. No occlusion or significant stenosis. No aneurysm. POSTERIOR CIRCULATION: Right vertebral artery: Minimal wall calcification distal right vertebral artery. Left vertebral artery: Unremarkable. No occlusion or significant stenosis. No aneurysm. Basilar artery: Unremarkable. No occlusion or significant stenosis. No aneurysm. Right posterior cerebral artery: Unremarkable. No occlusion or significant stenosis. No aneurysm. Left posterior cerebral artery: Unremarkable. No occlusion or significant stenosis. No aneurysm. Brain: No definite mass, mass effect, or midline shift. Cerebral ventricles: No ventriculomegaly. Bones/joints: Unremarkable. No acute fracture. Soft tissues: Unremarkable. IMPRESSION: No large vessel stenosis or occlusion. PROCEDURE INFORMATION: Exam: CT Angiography Neck With Contrast Exam date and time: 03/16/2021 3:10 PM Age: 86 years old Clinical indication: Other: AMS ? CVA TECHNIQUE: Imaging protocol: Computed tomography angiography of the neck with contrast. 3D rendering (Not supervised by radiologist): MIP and/or 3D reconstructed images were created by the technologist. Contrast material: OMNIPAQUE 350; Contrast route: INTRAVENOUS (IV); COMPARISON: MR BRAIN WO 03/16/2021 3:39 PM FINDINGS: Right common carotid artery: Mild wall calcification involving the distal right common carotid artery. Right internal carotid artery: Mild stenosis involving the right carotid bulb. The Right external carotid artery: No occlusion or stenosis of the origin. Left common carotid artery: Minimal calcification in the wall the distal left common carotid artery. Left internal carotid artery: Atherosclerotic calcification resulting in mild stenosis of the left carotid bulb and proximal ICA. Left external carotid artery: No occlusion or stenosis of the origin. Right vertebral artery: No stenosis. No dissection or occlusion. Left vertebral artery: Mild stenosis involving the proximal left vertebral artery. Brachiocephalic artery: There is mild atherosclerotic disease involving the right brachiocephalic artery. Left subclavian artery: Mild atherosclerotic disease involving the left subclavian artery. Thyroid: 9 mm hypodense left thyroid lobe nodule. Soft tissues: Normal. No significant soft tissue swelling. Bones/joints: No acute fracture. IMPRESSION: 1. Mild carotid stenosis, left greater than right. 2. 9 mm left thyroid lobe nodule. REFERENCES: 1. NASCET CRITERIA. The degree of internal carotid artery stenosis is based on NASCET criteria. Normal is no stenosis. Mild is less than 50% stenosis. Moderate is 50-69% stenosis. Severe is 70% to 99% stenosis. Total occlusion is no detectable patent lumen. 2. The Dictated and Authenticated by: Venancio Martinez MD. Ordering:ALVARO Quinones MD
--- NOTE | 2021-03-16 18:01 | HPE_ITS ---
Date of service: 03/16/21 Time of Service: 18:01 Assessment and Plan Assessment and plan (1) Acute CVA (cerebrovascular accident): Status: Acute Assessment and plan: 1. Left parietal stroke manifesting with apparently anterior aphasia, now either largely (or entirely). Likely embolic source, due to under anticoagulation (unexplained at present) Given the essentially normal INR I would favor using Lovenox until therapeutic INR can again be established (note patient states she was intolerant of DOAC, both symptomatically and by cost). 2. Elevated troponin: appears to be incidental, and not far from baseline. Will trend out. I do not see case for NSTEMI. 3. HTN: will allow a degree of permissive HTN in setting of stroke. 4.DM: will manage with reduced basal insulin and SS coverage. Reviewed ADs, requests Full Code History of Present Illness History of Present Illness Chief Complaint: stroke Narrative: 86 female with h/o AF, on Coumadin, as well as HTN and DM. Here with fairly sudden onset approx 8 hours ago of vague sense of confusion and disturbance of speech. In ER she was identified as having some word finding difficulty. W/u of [facility] for negative head CT but MRI showing acute left parietal infarct. CTA negative. Notably INR 1.1 (patient denies missing doses or recent change in meds). Other findings show K 2.5 (has received 20 KCl IV), troponin 248, 272 (baseline approx 160-190) and EKG with AF and TW inversions V5-6 which are old. Patient denies CP or SOB. I was asked to evaluate for admission. At present time patient states she feels essentially back to normal. 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 of vitamins CKD (chronic kidney disease), stage II (Chronic) Eructation (Acute) Tachycardia (Acute) Vaccine counseling (Acute) encouraged her to take COVID-19 vaccine; unlikely she will Fatigue (Acute) Dyspnea (Acute) Sensorineural hearing loss of both ears (Acute) Prerenal azotemia (Acute) Hearing loss (Acute) History of carpal tunnel surgery of left wrist (Acute 01/30/20) Lives alone (Chronic) Leg length discrepancy (Chronic) History of right hip replacement (Chronic) Pain in left thigh (Chronic) Goals of care, counseling/discussion (Acute) Ambulatory dysfunction (Acute) Hyponatremia (Chronic) 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) Iron deficiency anemia (Chronic) Postoperative anemia due to acute blood loss (Acute) Acute deep vein thrombosis (DVT) of right lower extremity (Acute) DNI (do not intubate) (Acute) DNR (do not resuscitate) (Acute) POLST (Physician Orders for Life-Sustaining Treatment) (Chronic) Refusal of blood transfusions as patient is Presybeterian (Acute) Complementary medicine (Chronic) Palliative care patient (Chronic) Renal insufficiency (Chronic) Fracture of head of right femur (Chronic) s/p R Anterior DARIEL (10/04/19) Constipation (Acute) Chronic low back pain (Chronic) Impaired left ventricular function (Acute ~05/2019) [facility] [place]; 35% Right knee pain (Acute) Right groin pain (Acute) Tachycardia (Acute) CHF (congestive heart failure) (Chronic) Hypertensive retinopathy (Acute) Hypertension (Chronic) Retinopathy, background, nonproliferative, mild (Acute 01/01/16) Mild obstructive sleep apnea (Acute 11/17/15) [facility] Hyperlipidemia (Chronic) Essential hypertension (Acute 01/04/13) echo 2007 LVH uncontrolled BP (neg w/u for pheo) Atrial fibrillation (Chronic 05/27/11) paroxysmal Oct 2009 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) [place] with out of hosp cardiac arrest LAD stent, LVEF 35% Carpal tunnel syndrome on both sides (Acute) s/p Left ECTR 01/30/2020 Lumbar stenosis (Acute) Foot drop, left (Acute) Low back pain (Acute) Diabetes mellitus out of control (Acute) Noncompliance with medication regimen (Acute 09/26/12) Spinal stenosis at L4-L5 level (Chronic) Diabetes mellitus (Chronic) Chronic anticoagulation (Chronic) Counseling on health promotion and disease prevention (Acute) Medical History Acute on chronic systolic heart failure Arthritis Atrial fibrillation with rapid ventricular response COVID-19 ruled out by clinical criteria Elevated troponin GERD (gastroesophageal reflux disease) NSTEMI (non-ST elevated myocardial infarction) (~05/2019) [facility] [place] Pedal edema Type II diabetes mellitus with complication, uncontrolled (05/14/14) UTI (urinary tract infection) Surgical History History of appendectomy Family History Brother Cancer Brother Cancer Leukemia Mother Asthma Sister Cancer Brother Dementia lives in SNF Son Prostate cancer Fall from ladder Son Paraplegic spinal paralysis motor vehicle crash Son No problems noted. Son No problems noted. 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 [employer] Pets and animals: Yes (one cat, Fancy) Pets and animals: cat(s) Current gender identity: female What is your relationship status?: How often do you talk on the phone with friends or family?: three or more times per week How often do you get together with friends or relatives?: three or more times per week How often do you attend christianity or yazidism services?: 4 or more times per year Panel score (0-1 are the most socially isolated patients): 2 What type of physical activity do you participate in: assisted ambulation Duration: 15-30 minutes/day Frequency: does not exercise Faviola/Sikh: Presybeterian Special faviola needs: Yes (no transfusion) Agree to transfusion: No Seatbelt use: always Drive intox or ride w/intox wedding transportation 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 in 2001. Linda's family hires [employer] to help with housework mostly. Hip pain better since her surgery with Dr Stovall. Lately, her biggest health problems have been chronic dyspnea, low exercise tolerance. Would like to go outside more but NEEDS BIG WHEELED walker, suitable for outdoors walking. Not going outside much these days and would like to. Dyspepsia better with chiropractic and naturopathic care, per Linda. Meds Allergies and Home Medications Allergies Allergy/AdvReac Type Severity Reaction Status Date / Time Tetanus Vaccines and Toxoid Allergy Intermediate Verified 03/16/21 13:30 doxycycline AdvReac Severe GI UPSET Verified 03/16/21 13:30 verapamil AdvReac Severe dizziness Verified 03/16/21 13:30 doxazosin mesylate AdvReac Intermediate muscle Verified 03/16/21 13:30 [From Sydnee] aches atenolol AdvReac Mild leg pain Verified 03/16/21 13:30 Home Medications Medication Instructions Recorded Confirmed Type ascorbic acid (vitamin C) 2 tab PO DAILY PRN 07/15/12 03/16/21 History chromium picolinate 1,000 mcg PO daily prn 08/13/14 03/16/21 History pen needle, diabetic 32 gauge x #100 each 04/17/19 03/16/21 Rx aspirin 81 mg tablet,delayed 81 mg PO DAILY 06/20/19 03/16/21 History release docusate sodium [Colace] 100 mg PO BID #60 cap 10/14/19 03/16/21 Rx magnesium oxide 400 mg PO DAILY #10 tab 10/14/19 03/16/21 Rx sennosides [Senokot] 1 tab PO BID PRN PRN #60 tab 10/14/19 03/16/21 Rx acetaminophen 500 mg PO Q4H PRN PRN #0 cap 01/30/20 03/16/21 Rx nitroglycerin 0.4 mg sublingual 0.4 mg SUBLINGUAL Q 5 MIN PRN #25 05/16/20 03/16/21 Rx tablet tab-cap ketoconazole 2 % topical cream 1 applic TOPICAL QPM PRN gm 07/08/20 03/16/21 History lisinopril 5 mg tablet 5 mg PO HS #90 tab 08/11/20 03/16/21 Rx warfarin 5 mg tablet 2.5 - 5 mg PO DAILY #60 tab 08/11/20 03/16/21 Rx diltiazem HCl 240 mg capsule,24 240 mg PO QAM #90 cap 09/16/20 03/16/21 Rx hr,extended release insulin degludec 100 unit/mL (3 16 unit SC QHS #15 ml 10/22/20 03/16/21 Rx mL) subcutaneous pen metoprolol succinate 200 mg 200 mg PO DAILY #90 tab 10/22/20 03/16/21 Rx tablet,extended release 24 hr furosemide 40 mg tablet 40 mg PO DAILY #90 tab 03/09/21 03/16/21 Rx Exam Narrative Exam Narrative: 173/89, 95, 36.9, 20, 96% RA. HEENT atraumatic; neck supple; lungs clear; heart irr/irr; abdomen soft and NT; extremities 3+ mixed pitting and non-pitting pedal edema; neuro Ox3, lucid, speech production is perhaps somewhat slow, but no errors and naming is excellent; CN intact; motor 5/5, toes downgoing Results Labs Result diagrams: 03/16/21 13:45 03/16/21 13:45 Labs: Laboratory Results - last 24 hr 03/16/21 03/16/21 03/16/21 13:45 13:45 13:45 WBC RBC Hgb Hct MCV MCH MCHC RDW Plt Count MPV Immature Gran % Neutrophils % Lymphocytes % Monocytes % Eosinophils % Basophils % Nucleated RBC % Absolute Neutrophils Absolute Lymphocytes Absolute Monocytes Absolute Eosinophils Absolute Basophils PT 11.2 H INR 1.1 VBG Lactate 1.4 Sodium 138 Potassium 2.5 L* Chloride 99 Carbon Dioxide 31.5 Anion Gap 7.5 BUN 20 H Creatinine 1.3 H Estimated GFR/1.73 m2 38.93 Glucose 307 H Calcium 8.7 Magnesium Total Bilirubin 0.3 AST 19 ALT 27 Alkaline Phosphatase 102 Troponin I 248 H* Total Protein 6.8 Albumin 3.1 L Urine Color Urine Clarity Urine pH Ur Specific [place] Urine Protein Urine Ketones Urine Blood Urine Nitrite Urine Bilirubin Urine Urobilinogen Ur Leukocyte Esterase Urine RBC Urine WBC Ur Epithelial Cells Urine Crystals Urine Bacteria Urine Casts Urine Mucus Ur Culture Indicated? Urine Glucose COVID-19 Source 03/16/21 03/16/21 03/16/21 13:45 13:45 14:14 WBC 7.51 RBC 4.03 Hgb 12.1 Hct 36.7 MCV 91.1 MCH 30.0 MCHC 33.0 RDW 13.1 Plt Count 175 MPV Immature Gran % 0.3 Neutrophils % 67.2 Lymphocytes % 18.9 Monocytes % 10.5 Eosinophils % 2.3 Basophils % 0.8 Nucleated RBC % 0 Absolute Neutrophils 5.05 Absolute Lymphocytes 1.42 Absolute Monocytes 0.79 Absolute Eosinophils 0.17 Absolute Basophils 0.06 PT INR VBG Lactate Sodium Potassium Chloride Carbon Dioxide Anion Gap BUN Creatinine Estimated GFR/1.73 m2 Glucose Calcium Magnesium 2.1 Total Bilirubin AST ALT Alkaline Phosphatase Troponin I Total Protein Albumin Urine Color Yellow Urine Clarity Sl Cloudy Urine pH 7.0 Ur Specific [place] 1.025 Urine Protein >=300 H Urine Ketones Negative Urine Blood Trace-intact H Urine Nitrite Negative Urine Bilirubin Negative Urine Urobilinogen 0.2 Ur Leukocyte Esterase Trace H Urine RBC 3-5 H Urine WBC 5-10 Ur Epithelial Cells Few Urine Crystals Negative Urine Bacteria Many Urine Casts 0-2 Hyaline Urine Mucus Heavy Ur Culture Indicated? Yes Urine Glucose 500 H COVID-19 Source 03/16/21 03/16/21 15:00 16:50 WBC RBC Hgb Hct MCV MCH MCHC RDW Plt Count MPV Immature Gran % Neutrophils % Lymphocytes % Monocytes % Eosinophils % Basophils % Nucleated RBC % Absolute Neutrophils Absolute Lymphocytes Absolute Monocytes Absolute Eosinophils Absolute Basophils PT INR VBG Lactate Sodium Potassium Chloride Carbon Dioxide Anion Gap BUN Creatinine Estimated GFR/1.73 m2 Glucose Calcium Magnesium Total Bilirubin AST ALT Alkaline Phosphatase Troponin I 272 H* Total Protein Albumin Urine Color Urine Clarity Urine pH Ur Specific [place] Urine Protein Urine Ketones Urine Blood Urine Nitrite Urine Bilirubin Urine Urobilinogen Ur Leukocyte Esterase Urine RBC Urine WBC Ur Epithelial Cells Urine Crystals Urine Bacteria Urine Casts Urine Mucus Ur Culture Indicated? Urine Glucose COVID-19 Source Nasal/Nares Last Vital Signs Temp 36.9 C 03/16/21 13:25 Pulse 95 H 03/16/21 17:31 Resp 29 H 03/16/21 17:16 BP 173/89 H 03/16/21 17:31 Pulse Ox 96 03/16/21 17:31
[2021-03-16 19:27] LABS: COVID-19 PCR Negative (Negative)
[2021-03-16] MEDS: Potassium Chloride 20 MEQ TABCR PO (20:46)
[2021-03-16] MEDS: Docusate Sodium 100 MG CAP PO (20:46)
[2021-03-16] MEDS: Warfarin 5 MG TAB PO (20:47)
[2021-03-16 22:19] LABS: Troponin I 333 ng/L (<or=60)
[2021-03-16] MEDS: Lisinopril 5 MG TAB PO (22:24)
[2021-03-17] VITALS (9 sets, daily range): BP systolic 140–171; BP diastolic 78–91; PULSE 70–114; RESP 18–26; TEMP 36.6–37.4; O2SAT 95–97
--- NOTE | 2021-03-17 | DI.US_ITS ---
APPROVED REPORT EXAM: Comprehensive 2D, Doppler, and color-flow Echocardiogram Patient Location: In-Patient Room/Bed: 229 Cake Wringer: Lee Ann Sadler RDCS (AE) Indications: Elevated troponin, Acute CVA Other Information Study Quality: Fair. Technically limited study due to body habitus. Conclusion Technically difficult study. Patient was in atrial fibrillation with an uncontrolled rate throughout Normal left ventricular wall thickness and chamber size. Estimated ejection fraction is 30 to 35%, m oderate to severe LV dysfunction. Segmental wall motion cannot be accurately assessed Normal right ventricular size and systolic function Both atria are severely dilated Trileaflet aortic valve without stenosis or regurgitation Mitral annular calcification, mild mitral regurgitation Normal tricuspid valve with mild regurgitation. Estimated right ventricular systolic pressure is 31 mmHg Mildly dilated ascending aorta Wall motion Left Ventricle The left ventricle is normal size. Left ventricular systolic function is moderately to severely decre ased. There is normal left ventricular wall thickness. Unable to accurately assess wall motion There is no ventricular septal defect visualized. LVEF is 30-35%. Right Ventricle The right ventricle is normal size. The right ventricular systolic function is normal. The RVSP is 31 .1 mmHg. Atria Left atrium is severely dilated. Right atrium is severely dilated. The interatrial septum is intact w ith no evidence for an atrial septal defect. Aortic Valve The aortic valve is normal in structure. Aortic valve is trileaflet. There is no aortic valvular sten osis. No aortic regurgitation is present. Mitral Valve Moderate mitral annular calcification. No evidence of mitral valve stenosis. Mild mitral regurgitatio n. Tricuspid Valve The tricuspid valve is normal in structure. There is no tricuspid valve stenosis. Mild tricuspid regu rgitation. Pulmonic Valve The pulmonary valve is normal in structure. There is no pulmonic valvular stenosis. There is no pulmo alfonso valvular regurgitation. Great Vessels The aortic root is normal in size. The ascending aorta is mildly dilated. Aortic arch is normal in ca liber. IVC is normal in size and collapses >50% with inspiration. Pericardium There is no pericardial effusion. 2D Dimensions IVSD d PLAX 1.11 cm F: 0.6-1.0 LV Vol A2C d MOD 81.6 mL LVPW d PLAX 1.10 cm F: 0.6 - 1.0 LV Vol A4C d MOD 82.6 mL LVID d PLAX 4.70 cm F: 3.8 - 5.2 LA vol/ BSA A2C s A-L 71.4 mL/m2 LVDs 4.05 cm F: 2.2 - 3.5 LA Area A2C s MOD 28.79 cm2 Ao Root d 3.01 cm F: 2.7 - 3.3 LV EF A4C MOD 32.9 % RA Area A4C 20.26 cm2 LV EF A2C MOD 32.4 % RA Vol/ BSA A4C s A-L 40.0 mL/m2 LV EF Biplane MOD 31.3 % Ao Asc Diam d 3.41 cm F: 2.3 - 3.1 SV 25.78 mL LV EF Teichholz 28.7 % SV Index 16.75 mL/m2 LVEF (Castillo's) 31.33 % F: 54 - 74 LV Volume 67.88 mL F: 46 - 106 LV Volume Index 44.07 mL/m2 F: 29 - 61 LV Vol Biplane MOD 82.3 mL FS 13.40 % M-Mode TAPSE 1.29 cm (M/F) >1.7 LV Diastology MV E Vmax 0.97 (0.4-1.3 m/s) Aortic Valve LVOT Area 2.96 cm2 AoV Area Vmax 2.55 cm2 LVOT Vmax 0.70 m/s AoV Area/ BSA (Vmax) 1.66 cm2/m2 LVOT Mean Kelvin. 0.46 m/s HONEY Mean Kelvin. 2.26 cm2 LVOT Peak Grad 2.0 mmHg HONEY Mean Kelvin. Index 1.47 cm2/m2 LVOT Mean Grad 1.0 mmHg LVOT VTI 0.092 m LVOT Diam s 1.90 cm AoV Vmax 0.81 m/s Velocity Ratio 0.86 AoV Mean Kevlin. 0.61 m/s AoV Peak Grad 2.7 mmHg LVOT SV 27.25 mL AoV Mean Grad 1.6 mmHg AoV VTI 0.118 m AoV Area VTI 2.30 cm2 AoV Area/ BSA (VTI) 1.50 cm/m2 Mitral Valve MV DT 156 (160-240 msec) MR Vmax 4.64 m/s MV PHT 45 msec MR VTI 1.222 m MV Area PHT 4.85 cm2 MR Peak Grad 86.3 mmHg MV VTI 0.182 m MR Mean Grad 69.4 mmHg MV Area VTI 1.50 (4.0-6.0 cm2) MR PISA Radius 0.39 cm MR EROA 0.07 cm2 MR Aliasing Velocity 0.35 m/s MR PISA 0.94 cm2 Pulmonary Valve PV Vmax 0.79 (0.5-1.5 m/s) RVOT Peak Gr. 1.01 mmHg PV Peak Grad 2.5 mmHg RVOT Mean Gr. 0.60 mmHg PV Mean Grad 1.6 mmHg RVOT VTI 0.093 m PV VTI 0.138 m RVOT Vmax 0.50 m/s Tricuspid Valve TR Peak Grad 28.1 mmHg TR Vmax 2.65 m/s RA Pressure 3.00 mmHg RVSP (TR) 31.1 mmHg
[2021-03-17] MEDS: Normal Saline 1,000 ML 75 ML IV (05:51)
[2021-03-17 07:45] LABS: Potassium 3.1 mmol/L (3.5-5.1)
[2021-03-17 07:47] LABS: Troponin I 379 ng/L (<or=60)
[2021-03-17 07:53] LABS: INR 1.2 (0.9-1.1); Prothrombin Time 11.9 sec (9.3-11.0)
[2021-03-17] MEDS: Insulin Aspart 300 UNITS/3 ML PEN SC ×3 (08:53→18:45)
[2021-03-17] MEDS: dilTIAZem CD 120 MG CAPCR 240 MG PO (08:54)
[2021-03-17] MEDS: Magnesium Oxide 400 MG TAB PO (08:54)
[2021-03-17] MEDS: Aspirin E.C. 81 MG TABEC PO (08:54)
[2021-03-17] MEDS: Docusate Sodium 100 MG CAP PO ×2 (08:54→21:19)
[2021-03-17] MEDS: Furosemide 40 MG TAB PO (08:54)
[2021-03-17] MEDS: Metoprolol CR 50 MG TABCR 200 MG PO (08:54)
--- NOTE | 2021-03-17 09:11 | INITIAL_ITS ---
- If Service Date Differs Date of service: 03/17/21 Time of Service: 09:11 Care Management Initial Assess REASON FOR HOSPITALIZATION:: Stroke PAST MEDICAL HISTORY/PAST SURGICAL HISTORY:: All Active Problems . Acute CVA (cerebrovascular accident) (Acute). Atrial flutter with rapid ventricular response (Acute). Elevated troponin (Acute). Right rotator cuff tear (Acute). All medications reviewed (Acute). Excessive vitamin intake (Chronic). her naturopathic remedies have many times more than TOBACCO GROWER of vitamins. CKD (chronic kidney disease), stage II (Chronic). Eructation (Acute). Tachycardia (Acute). Vaccine counseling (Acute). encouraged her to take COVID-19 vaccine; unlikely she will. Fatigue (Acute). Dyspnea (Acute). Sensorineural hearing loss of both ears (Acute). Prerenal azotemia (Acute). Hearing loss (Acute). History of carpal tunnel surgery of left wrist (Acute 01/30/20). Lives alone (Chronic). Leg length discrepancy (Chronic). History of right hip replacement (Chronic). Pain in left thigh (Chronic). Goals of care, counseling/discussion (Acute). Ambulatory dysfunction (Acute). Hyponatremia (Chronic). 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). Iron deficiency anemia (Chronic). Postoperative anemia due to acute blood loss (Acute). Acute deep vein thrombosis (DVT) of right lower extremity (Acute). DNI (do not intubate) (Acute). DNR (do not resuscitate) (Acute). POLST (Physician Orders for Life- Sustaining Treatment) (Chronic). Refusal of blood transfusions as patient is Worship (Acute). Complementary medicine (Chronic). Palliative care patient (Chronic). Renal insufficiency (Chronic). Fracture of head of right femur (Chronic). s/p R Anterior DARIEL (10/04/19). Constipation (Acute). Chronic low back pain (Chronic). Impaired left ventricular function (Acute ~05/2019). [facility]; 35%. Right knee pain (Acute). Right groin pain (Acute). Tachycardia (Acute). CHF (congestive heart failure) (Chronic). Hypertensive retinopathy (Acute). Hypertension (Chronic). Retinopathy, background, nonproliferative, mild (Acute 01/01/16). Mild obstructive sleep apnea (Acute 11/17/15). [facility]. Hyperlipidemia (Chronic). Essential hypertension (Acute 01/04/13). echo 2007 LVH. uncontrolled BP (neg w/u for pheo). Atrial fibrillation (Chronic 05/27/11). paroxysmal Oct 2009. ASCVD (arteriosclerotic cardiovascular disease ) (Chronic 04/22/15). [place] with out of hosp cardiac arrest. LAD stent, LVEF 35%. Carpal tunnel syndrome on both sides (Acute). s/p Left ECTR 01/30/2020. Lumbar stenosis (Acute). Foot drop, left (Acute). Low back pain (Acute). Diabetes mellitus out of control (Acute). Noncompliance with medication regimen (Acute 09/26/12). Spinal stenosis at L4-L5 level (Chronic). Diabetes mellitus (Chronic). Chronic anticoagulation (Chronic). Counseling on health promotion and disease prevention (Acute). Medical History . Acute on chronic systolic heart failure. Arthritis. Atrial fibrillation with rapid ventricular response. COVID-19 ruled out by clinical criteria. Elevated troponin. GERD (gastroesophageal reflux disease). NSTEMI (non-ST elevated myocardial infarction) (~05/2019). [facility]. Pedal edema. Type II diabetes mellitus with complication, uncontrolled (05/14/14). UTI (urinary tract infection). Surgical History . History of appendectomy PREVIOUS FUNCTIONAL STATUS/SOCIAL/FAMILY SUPPORTS:: Linda lives alone with her cat in [place], [place]. She has four adult sons, three who live locally and one who resides out of state in [place]. She also has one sister and two brothers who live in the area. 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 Linda no longer drives but she remains independent with her ADLs at baseline. She enjoys watching television, reading, playing solitaire on her IPad, and talking to friends and family on the telephone. CURRENT FUNCTIONAL STATUS:: Linda was sitting up in bed when CM met with her. She was pleasant and easily engaged in conversation. She had an echo earlier t geoffrey and worked with PT today. She is anticipating being discharged home when she is medically ready. She feels that she has enough support from her friends and family. She feels she would benefit from [facility] RN/PT following discharge. ADVANCE DIRECTIVES:: COLST on file; son Robert Bautista is appointed at [facility]. Has patient been provided with info about the portal/API?: Yes Did the patient sign up for the portal?: No CODE STATUS:: Full Code INSURANCE COVERAGE / FINANCIAL ISSUES:: [facility] [employer] and Medicare CURRENT HOME/COMMUNITY SERVICES/EQUIPMENT:: Linda has a privately paid trouble tracer who comes to her home twice a week (Tuesdays and ), takes her grocery shopping, and drives her to doctor's appointments. Linda owns a walker with a seat, which she uses to ambulate at home. She also has a shower seat, grab bars in the bathroom, and a life line alert. PRIMARY CARE PHYSICIAN:: Rad Yeh MD POTENTIAL DISCHARGE NEEDS:: Follow up appointments PATIENT/FAMILY EDUCATION NEEDS:: Discharge instructions, limitations, follow up plan including Ask Me Three and self management. TRANSPORTATION:: Via private vehicle with family. PLAN:: Anticipate Linda will be discharged home when medically cleared by provider. She requests new [facility] SN/PT services. She will follow up with her PCP and discharge plan of care as directed. She will be driven home by family via private vehicle. CM will continue to support patient and monitor her discharge planning needs.
--- NOTE | 2021-03-17 10:03 | NCONE_ITS ---
Date of service: 03/17/21 Time of Service: 10:03 Assessment and Plan Assessment and plan (1) Acute CVA (cerebrovascular accident): Status: Acute (2) Atrial flutter: Status: Acute (3) Subtherapeutic anticoagulation: Status: Acute Assessment and plan: Ms. Bautista is an 86 year-old, right-handed woman with: #1. Acute left parietal ischemic stroke, manifested by expressive aphasia, due to cardioembolus from atrial fibrillation in the setting of subtherapeutic INR; complicated by findings of remote/prior cerebral microhemorrhage. Based on the size of her stroke, she is at increased risk of secondary hemorrhage. Given this, we have opted to keep her on ASA 81mg daily with resumption of warfarin, projecting a slow return to therapeutic INR over several days. However, given failure of warfarin despite excellent medication adherence, best recommendation would be to switch to NOAC which compared with warfarin has less risk for ischemia and hemorrhage. She notes ADRs with Eliquis previously as well as difficulty with affording the medication. Please look to see if Xarelto would be an affordable option at this time. If Xarelto is an option, would not start for 1 week given risk of hemorrhage with current stroke. Also recommend the addition of statin medication acutely. Long-term benefits of statin less clear in her age-group. Otherwise, please check TTE, lipid panel, A1c, and continue telemetry. She will need PT and ST. Please note that she lives alone. I did not identify what supports she has at this visit. #2. Elevated troponin. She has not noticed any recent palpitations etc. This is being followed by primary team. History of Present Illness History of Present Illness Chief Complaint: stroke Narrative: Handedness: right. HPI: Ms. Bautista is an 86 year-old woman with hypertension, hyperlipidemia, heart disease s/p ME, atrial fibrillation/flutter on coumadin, type 2 diabetes, mild NNAMDI, and lumbar stenosis. She was admitted yesterday evening for acute onset confusion and difficulty finding words just after breakfast around 10am. Symptoms improved as the day went on and overnight, though she is still not back to baseline. She had no associated weakness, numbness, or dysphagia. She is on aspirin and coumadin at baseline. Admission INR was 1.1. She has not had any medication or dietary changes of recent and takes her coumadin consistently. She has undergone the work-up as below. Coumadin has been continued at her home dose along with aspirin. She is not on a statin at baseline. She was on Eliquis in the past - recalls ADRs - as well as difficulty affording the medication. She has chronic numbness in her left hand, pointing to the ulnar nerve distribution. S/p L CTR. She lives alone. She no longer drives. She uses a walker for ambulation s/p right hip fracture and ORIF. Work-up: -CTH (03/16/21): moderate chronic vascular changes. I reviewed these images personally and this is my personal interpretation. -CTA head/neck (03/16/21): carotid plaque bilaterally without significant stenosis. I reviewed these images personally and this is my personal interpretation. -MRI brain (03/16/21): moderate sized L parietal wedge ischemic infarct. Old infarcts in L occipital lobe and lacunes int he bilateral centrum semiovale. Prior microhemorrhages bilaterally in the cerebellum, midbrain, and right thalamus. Extensive chronic vascular changes. I reviewed these images personally and this is my personal interpretation. -Trop: 248 - 272 - 333 - 379 - 375 Consults Requesting physician: Rakesh Stoo [facility] All Active Problems (Updated 03/17/21 @ 15:50 by Georgiana Diamond MD) Subtherapeutic anticoagulation (Acute) Heart failure with reduced ejection fraction (Acute) Elevated troponin (Acute) Atrial flutter (Acute) Acute CVA (cerebrovascular accident) (Acute) Elevated troponin (Acute) Right rotator cuff tear (Acute) All medications reviewed (Acute) Excessive vitamin intake (Chronic) her naturopathic remedies have many times more than QUALITY CONTROL REPRESENTATIVE of vitamins CKD (chronic kidney disease), stage II (Chronic) Eructation (Acute) Tachycardia (Acute) Vaccine counseling (Acute) encouraged her to take COVID-19 vaccine; unlikely she will Fatigue (Acute) Dyspnea (Acute) Sensorineural hearing loss of both ears (Acute) Prerenal azotemia (Acute) Hearing loss (Acute) History of carpal tunnel surgery of left wrist (Acute 01/30/20) Lives alone (Chronic) Leg length discrepancy (Chronic) History of right hip replacement (Chronic) Pain in left thigh (Chronic) Goals of care, counseling/discussion (Acute) Ambulatory dysfunction (Acute) Hyponatremia (Chronic) 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) Iron deficiency anemia (Chronic) Postoperative anemia due to acute blood loss (Acute) Acute deep vein thrombosis (DVT) of right lower extremity (Acute) DNI (do not intubate) (Acute) DNR (do not resuscitate) (Acute) POLST (Physician Orders for Life-Sustaining Treatment) (Chronic) Refusal of blood transfusions as patient is Church (Acute) Complementary medicine (Chronic) Palliative care patient (Chronic) Renal insufficiency (Chronic) Fracture of head of right femur (Chronic) s/p R Anterior DARIEL (10/04/19) Constipation (Acute) Chronic low back pain (Chronic) Impaired left ventricular function (Acute ~05/2019) [facility]; 35% Right knee pain (Acute) Right groin pain (Acute) Tachycardia (Acute) CHF (congestive heart failure) (Chronic) Hypertensive retinopathy (Acute) Hypertension (Chronic) Retinopathy, background, nonproliferative, mild (Acute 01/01/16) Mild obstructive sleep apnea (Acute 11/17/15) [facility] Hyperlipidemia (Chronic) Essential hypertension (Acute 01/04/13) echo 2007 LVH uncontrolled BP (neg w/u for pheo) Atrial fibrillation (Chronic 05/27/11) paroxysmal Oct 2009 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) [place] out of hosp cardiac arrest LAD stent, LVEF 35% Carpal tunnel syndrome on both sides (Acute) s/p Left ECTR 01/30/2020 Lumbar stenosis (Acute) Foot drop, left (Acute) Low back pain (Acute) Diabetes mellitus out of control (Acute) Noncompliance with medication regimen (Acute 09/26/12) Spinal stenosis at L4-L5 level (Chronic) Diabetes mellitus (Chronic) Chronic anticoagulation (Chronic) Counseling on health promotion and disease prevention (Acute) Medical History Acute on chronic systolic heart failure Arthritis Atrial fibrillation with rapid ventricular response COVID-19 ruled out by clinical criteria Elevated troponin GERD (gastroesophageal reflux disease) NSTEMI (non-ST elevated myocardial infarction) (~05/2019) [facility] Pedal edema Type II diabetes mellitus with complication, uncontrolled (05/14/14) UTI (urinary tract infection) Surgical History History of appendectomy Family History Brother Cancer Brother Cancer Leukemia Mother Asthma Sister Cancer Brother Dementia lives in SNF Son Prostate cancer Fall from ladder Son Paraplegic spinal paralysis motor vehicle crash Son No problems noted. Son No problems noted. 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 [employer] Pets and animals: Yes (one cat, Fancy) Pets and animals: cat(s) Current gender identity: female What is your relationship status?: How often do you talk on the phone with friends or family?: three or more times per week How often do you get together with friends or relatives?: three or more times per week How often do you attend jain or cheondoism services?: 4 or more times per year Panel score (0-1 are the most socially isolated patients): 2 What type of physical activity do you participate in: assisted ambulation Duration: 15-30 minutes/day Frequency: does not exercise Faviola/Anabaptism: Church Special faviola needs: Yes (no transfusion) Agree to transfusion: No Seatbelt use: always Drive intox or ride w/intox tractor 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 in 2001. Linda's family hires [employer] to help with housework mostly. Hip pain better since her surgery with Dr Stovall. Lately, her biggest health problems have been chronic dyspnea, low exercise tolerance. Would like to go outside more but NEEDS BIG WHEELED walker, suitable for outdoors walking. Not going outside much these days and would like to. Dyspepsia better with chiropractic and naturopathic care, per Linda. Visit Medication and Allergies Active Medications Generic Name Dose Route Start Last Admin Trade Name Fifi PRN Reason Stop Dose Admin Aspirin 81 mg 03/17/21 08:30 03/17/21 08:54 Aspirin E.C. 81 Mg Tabec PO 81 mg DAILY KATHY Administration Dextrose 0 gm 03/16/21 18:32 Glucose 40% Oral Solution 15 Gm/37.5 Gm Tube PO DIRECTED PRN Dextrose/Water 0 gm 03/16/21 18:32 Dextrose 50%-Water 25 Gm/50 Ml Syr IVP DIRECTED PRN Diltiazem HCl 240 mg 03/17/21 08:30 03/17/21 08:54 Diltiazem Cd 120 Mg Capcr PO 240 mg QAM KATHY Administration Dimethicone/Zinc Oxide 0 gm 03/16/21 18:24 Carmelo Protect Cream 142 Gm Tube TP PRN PRN Docusate Sodium 100 mg 03/16/21 20:00 03/17/21 08:54 Docusate Sodium 100 Mg Cap PO 100 mg BID KATHY Administration Furosemide 40 mg 03/17/21 08:30 03/17/21 08:54 Furosemide 40 Mg Tab PO 40 mg DAILY KATHY Administration Sodium Chloride 1,000 mls @ 75 mls/hr 03/16/21 15:15 03/17/21 05:51 Saline 1000ml Bag IV 75 mls/hr INFUSION KATHY Administration Insulin Aspart 0 units 03/17/21 08:00 03/17/21 08:53 Insulin Aspart 300 Units/3 Ml Pen SC 1 unit 0800,1200,1700 KATHY Administration Protocol Lisinopril 5 mg 03/16/21 22:00 03/16/21 22:24 Lisinopril 5 Mg Tab PO 5 mg HS KATHY Administration Magnesium Oxide 400 mg 03/17/21 08:30 03/17/21 08:54 Magnesium Oxide 400 Mg Tab PO 400 mg DAILY KATHY Administration Metoprolol Succinate 200 mg 03/17/21 08:30 03/17/21 08:54 Metoprolol Cr 50 Mg Tabcr PO 200 mg DAILY KATHY Administration Non-Formulary Medication 16 unit 03/16/21 22:00 03/16/21 22:34 Insulin Degludec [Tresiba Flextouch U-100] SC Not Given HS KATHY Warfarin Sodium 5 mg 03/17/21 20:00 Warfarin 5 Mg Tab PO QPM KATHY Allergies Tetanus Vaccines and Toxoid Allergy (Intermediate, Verified 03/16/21 13:30) doxycycline Adverse Reaction (Severe, Verified 03/16/21 13:30) GI UPSET verapamil Adverse Reaction (Severe, Verified 03/16/21 13:30) dizziness doxazosin mesylate [From Cardura] Adverse Reaction (Intermediate, Verified 03/16/21 13:30) muscle aches atenolol Adverse Reaction (Mild, Verified 03/16/21 13:30) leg pain Exam Narrative Exam Narrative: Physical Exam: Gen: Patient of apparent stated age, NAD Head and face: no facial or cranial abnormalities Neck: Supple, no meningismus, no occipital tenderness CV: rapid, irregular Resp: CTA B/L Abd: soft, nontender, nondistended Ext: + bilateral LE edema. No clubbing or cyanosis. No bony deformity. Neuro Exam: Language: naming, repetition, and comprehension intact (able to follow 3-step command across the midline); still has reduced fluency Mental Status: AAOx3, current events intact, fund of knowledge intact; Speech: no dysarthria Cranial nerves: Funduscopy: not performed CN II: visual leos intact CN III, IV, : extraocular movements intact, no nystagmus, pupils symmetric and reactive to light CN V: face sensation intact to LT and PP CN VII: no facial asymmetry noted CN VIII: hearing intact bilaterally CN IX, X: palate rises symmetrically CN XI: trapezius/SCM 5/5 bilaterally CN XII: protrudes tongue symmetrically Sensory: intact to PP in all extremities; reduced vibration in toes bilaterally; some difficulty with joint position? in R toe only but could be due to aphasia as well Motor: bulk and tone intact. Fine motor movements reduced on the left. ?Left pronator drift. Strength 5/5 throughout except 4+/5 in the bilateral LE proximally. Distally, R ankle dorsiflexion 4-/5 and L 3+/5. EHL 3/5 bilaterally. Mild bilateral UE postural and action tremor. Reflexes: hyporeflexic throughout with absent achilles reflexes; toes down going bilaterally; Coordination: FTN and HTS intact bilaterally Gait: not tested Results Last Vital Signs Temp 97.9 F 03/17/21 08:31 Pulse 93 H 03/17/21 08:31 Resp 18 03/17/21 08:31 BP 169/78 H 03/17/21 08:31 Pulse Ox 97 03/17/21 08:31 Labs Result diagrams: 03/16/21 13:45 03/17/21 16:30 Labs: Laboratory Results - last 24 hr 03/16/21 03/16/21 03/16/21 13:45 13:45 13:45 WBC RBC Hgb Hct MCV MCH MCHC RDW Plt Count MPV Immature Gran % Neutrophils % Lymphocytes % Monocytes % Eosinophils % Basophils % Nucleated RBC % Absolute Neutrophils Absolute Lymphocytes Absolute Monocytes Absolute Eosinophils Absolute Basophils PT 11.2 H INR 1.1 VBG Lactate 1.4 Sodium 138 Potassium 2.5 L* Chloride 99 Carbon Dioxide 31.5 Anion Gap 7.5 BUN 20 H Creatinine 1.3 H Estimated GFR/1.73 m2 38.93 Glucose 307 H Calcium 8.7 Magnesium Total Bilirubin 0.3 AST 19 ALT 27 Alkaline Phosphatase 102 Troponin I 248 H* Total Protein 6.8 Albumin 3.1 L Urine Color Urine Clarity Urine pH Ur Specific [place] Urine Protein Urine Ketones Urine Blood Urine Nitrite Urine Bilirubin Urine Urobilinogen Ur Leukocyte Esterase Urine RBC Urine WBC Ur Epithelial Cells Urine Crystals Urine Bacteria Urine Casts Urine Mucus Ur Culture Indicated? Urine Glucose COVID-19 Source SARS-CoV-2 (PCR) 03/16/21 03/16/21 03/16/21 13:45 13:45 14:14 WBC 7.51 RBC 4.03 Hgb 12.1 Hct 36.7 MCV 91.1 MCH 30.0 MCHC 33.0 RDW 13.1 Plt Count 175 MPV Immature Gran % 0.3 Neutrophils % 67.2 Lymphocytes % 18.9 Monocytes % 10.5 Eosinophils % 2.3 Basophils % 0.8 Nucleated RBC % 0 Absolute Neutrophils 5.05 Absolute Lymphocytes 1.42 Absolute Monocytes 0.79 Absolute Eosinophils 0.17 Absolute Basophils 0.06 PT INR VBG Lactate Sodium Potassium Chloride Carbon Dioxide Anion Gap BUN Creatinine Estimated GFR/1.73 m2 Glucose Calcium Magnesium 2.1 Total Bilirubin AST ALT Alkaline Phosphatase Troponin I Total Protein Albumin Urine Color Yellow Urine Clarity Sl Cloudy Urine pH 7.0 Ur Specific [place] 1.025 Urine Protein >=300 H Urine Ketones Negative Urine Blood Trace-intact H Urine Nitrite Negative Urine Bilirubin Negative Urine Urobilinogen 0.2 Ur Leukocyte Esterase Trace H Urine RBC 3-5 H Urine WBC 5-10 Ur Epithelial Cells Few Urine Crystals Negative Urine Bacteria Many Urine Casts 0-2 Hyaline Urine Mucus Heavy Ur Culture Indicated? Yes Urine Glucose 500 H COVID-19 Source SARS-CoV-2 (PCR) 03/16/21 03/16/21 03/16/21 15:00 16:50 21:48 WBC RBC Hgb Hct MCV MCH MCHC RDW Plt Count MPV Immature Gran % Neutrophils % Lymphocytes % Monocytes % Eosinophils % Basophils % Nucleated RBC % Absolute Neutrophils Absolute Lymphocytes Absolute Monocytes Absolute Eosinophils Absolute Basophils PT INR VBG Lactate Sodium Potassium Chloride Carbon Dioxide Anion Gap BUN Creatinine Estimated GFR/1.73 m2 Glucose Calcium Magnesium Total Bilirubin AST ALT Alkaline Phosphatase Troponin I 272 H* 333 H* Total Protein Albumin Urine Color Urine Clarity Urine pH Ur Specific [place] Urine Protein Urine Ketones Urine Blood Urine Nitrite Urine Bilirubin Urine Urobilinogen Ur Leukocyte Esterase Urine RBC Urine WBC Ur Epithelial Cells Urine Crystals Urine Bacteria Urine Casts Urine Mucus Ur Culture Indicated? Urine Glucose COVID-19 Source Nasal/Nares SARS-CoV-2 (PCR) Negative 03/17/21 03/17/21 07:00 07:00 WBC RBC Hgb Hct MCV MCH MCHC RDW Plt Count MPV Immature Gran % Neutrophils % Lymphocytes % Monocytes % Eosinophils % Basophils % Nucleated RBC % Absolute Neutrophils Absolute Lymphocytes Absolute Monocytes Absolute Eosinophils Absolute Basophils PT 11.9 H INR 1.2 H VBG Lactate Sodium Potassium 3.1 L Chloride Carbon Dioxide Anion Gap BUN Creatinine Estimated GFR/1.73 m2 Glucose Calcium Magnesium Total Bilirubin AST ALT Alkaline Phosphatase Troponin I 379 H* Total Protein Albumin Urine Color Urine Clarity Urine pH Ur Specific [place] Urine Protein Urine Ketones Urine Blood Urine Nitrite Urine Bilirubin Urine Urobilinogen Ur Leukocyte Esterase Urine RBC Urine WBC Ur Epithelial Cells Urine Crystals Urine Bacteria Urine Casts Urine Mucus Ur Culture Indicated? Urine Glucose COVID-19 Source SARS-CoV-2 (PCR)
[2021-03-17] MEDS: POTASSIUM CHLORIDE 20 MEQ/100 ML BAG 50 MEQ IVPB ×2 (12:10→16:47)
[2021-03-17] MEDS: Normal Saline Flush 10 ML SYR ×2 (12:20→16:47)
[2021-03-17 12:45] LABS: Troponin I 375 ng/L (<or=60)
--- NOTE | 2021-03-17 15:12 | PT.INIE ---
Date of service: 03/17/21 Time of Service: 15:12 PT Notes Visit Reasons: Stroke Physical Therapy Inpatient Initial Evaluation Date: 03/17/2021 Referring Doctor: Yong Cruz MD PT Orders: PT CONSULT: Fall safety assessment Precautions: Fall. Standard. Activity as tolerated. Patient Profile/Admitting Diagnosis: Linda is an 86-year-old female who presented to the ED on 03/16/2021 with complaints of feeling unwell , and word finding difficulty. Patient is diagnosed with acute CVA, elevated troponin, hypertension, and diabetes mellitus. 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 CKD (chronic kidney disease), stage II (Chronic) Eructation (Acute) Tachycardia (Acute) Vaccine counseling (Acute) encouraged her to take COVID-19 vaccine; unlikely she will Fatigue (Acute) Dyspnea (Acute) Sensorineural hearing loss of both ears (Acute) Prerenal azotemia (Acute) Hearing loss (Acute) History of carpal tunnel surgery of left wrist (Acute 01/30/20) Lives alone (Chronic) Leg length discrepancy (Chronic) History of right hip replacement (Chronic) Pain in left thigh (Chronic) Goals of care, counseling/discussion (Acute) Ambulatory dysfunction (Acute) Hyponatremia (Chronic) 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) Iron deficiency anemia (Chronic) Postoperative anemia due to acute blood loss (Acute) Acute deep vein thrombosis (DVT) of right lower extremity (Acute) DNI (do not intubate) (Acute) DNR (do not resuscitate) (Acute) POLST (Physician Orders for Life-Sustaining Treatment) (Chronic) Refusal of blood transfusions as patient is [employer]ism (Acute) Complementary medicine (Chronic) Palliative care patient (Chronic) Renal insufficiency (Chronic) Fracture of head of right femur (Chronic) s/p R Anterior DARIEL (10/04/19) Constipation (Acute) Chronic low back pain (Chronic) Impaired left ventricular function [place]Acute [place]05[place]2019[place] [facility] [place] Right knee pain (Acute) Right groin pain (Acute) Tachycardia (Acute) CHF (congestive heart failure) (Chronic) Hypertensive retinopathy (Acute) Hypertension (Chronic) Retinopathy, background, nonproliferative, mild (Acute 01/01/16) Mild obstructive sleep apnea (Acute 11/17/15) [facility] Hyperlipidemia (Chronic) Essential hypertension (Acute 01/04/13) echo 2007 LVH uncontrolled BP (neg w/u for pheo) Atrial fibrillation (Chronic 05/27/11) paroxysmal Oct 2009 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) [place] with out of hosp cardiac arrest LAD stent, LVEF 35% Carpal tunnel syndrome on both sides (Acute) s/p Left ECTR 01/30/2020 Lumbar stenosis (Acute) Foot drop, left (Acute) Low back pain (Acute) Diabetes mellitus out of control (Acute) Noncompliance with medication regimen (Acute 09/26/12) Spinal stenosis at L4-L5 level (Chronic) Diabetes mellitus (Chronic) Chronic anticoagulation (Chronic) Counseling on health promotion and disease prevention (Acute) Medical History Acute on chronic systolic heart failure Arthritis Atrial fibrillation with rapid ventricular response COVID-19 ruled out by clinical criteria Elevated troponin GERD (gastroesophageal reflux disease) NSTEMI (non-ST elevated myocardial infarction) (~05/2019[place] [facility] [place] edema Type II diabetes mellitus with complication, uncontrolled (05/14/14) UTI (urinary tract infection) Surgical History History of appendectomy Social History/Home Situation: Linda lives alone in a private home with a ramp to enter. She was independent with a 4-wheeled walker for all mobility ADL performance. Cooks her own meals. A lady comes in twice a week for 2 hours each time to help with field radio technician, laundry, grocery shopping and errands. Equipment Owned/DME: 4[employer] Subjective: Linda states that she had a fall back in November of this year where she lost her balance when she was trying to bend forward, denies dizziness. Reports that she is almost back to baseline with her ability to speak. She is agreeable to getting out of bed and going for a walk with a front-wheeled walker. Agreeable to having home health PT work with her once discharged from the hospital. Denies headache, chest pain, dizziness throughout session. Objective: General Observation: Telemetry monitoring in place. Edema noted to bilateral legs with the right more than the left. Mental Status: Alert and oriented x4 Pain: None reported ROM: Right Upper Extremity: Shoulder Flexion WFL. Shoulder abduction WFL. Elbow flexion WFL. Wrist flexion WFL. Functional opening and closing of hand WFL. Left Upper Extremity: Shoulder Flexion WFL. Shoulder abduction WFL. Elbow flexion WFL. Wrist flexion WFL. Functional opening and closing of hand WFL. Right Lower Extremity: Hip flexion WFL. Hip abduction WFL. Knee flexion WFL. Ankle dorsiflexion WFL. Ankle plantarflexion WFL. Left Lower Extremity: Hip flexion WFL. Hip abduction WFL. Knee flexion WFL. Ankle dorsiflexion WFL. Ankle plantarflexion WFL. Strength: Right Upper Extremity: Shoulder flexors 4-/5. Shoulder abductors 4-/5. Elbow flexors 4-/5. Elbow extensors 4-/5. Corrugator Operator Helper weak but functional. Left Upper Extremity: Shoulder flexors 4-/5. Shoulder abductors 4-/5. Elbow flexors 4-/5. Elbow extensors 4-/5. Corrugator Operator Helper weak but functional. Right Lower Extremity: Hip flexors 4-/5. Hip abductors 4-/5. Knee flexors 4/5. Knee extensors 4-/5. Ankle dorsiflexors 4-/5. Ankle plantarflexors 4-/5. Left Lower Extremity: Hip flexors 4-/5. Hip abductors 4-/5. Knee flexors 4/5. Knee extensors 4-/5. Ankle dorsiflexors 4-/5. Ankle plantarflexors 4-/5. Sensation: Intact as to pain and pressure on bilateral lower extremities. Bed Mobility/Transfers: Supine to sit standby assist with HOB at 30 degrees Sit to stand contact-guard assist Stand to sit contact-guard assist Bed to chair contact-guard assist Chair to bed contact-guard assist Gait: Linda tolerated level surface ambulation of 60 feet +60 feet using the front wheeled walker with FWB on BLE. Increased stance time on the left side. Increase trunk flexion. Mild foot drop noted on the left. Denies headache, chest pain, and dizziness throughout ambulation activity. Balance: Static Sitting: Normal Dynamic Sitting: Normal Static Standing: Fair Dynamic Standing: Fair Special Tests: Mobility Limitations Standardized Measure [facility] 6 clicks Basic Mobility Inpatient Short Form: Raw Score: 20 CMS Score: 36% deficit Informed Consent/Education: Patient instructed in purpose of PT consult and plan of care. Assessment: Minimally short of breath after level surface ambulation using 4-wheeled walker, resolved with rest. Low endurance, needs frequent rests. Linda demonstrates decreased activity tolerance, generalized weakness, and increased risk for falls due to admitting diagnoses and will benefit from physical therapy services to increase ability to return home when medically cleared by hospitalist. Patient presents with clinical signs and symptoms consistent with current/admitting diagnoses that have resulted to mobility limitations, gait instability, generalized weakness, and impairment of motor control as demonstrated by the following impairment level findings: 1. Decreased strength to BLE major muscle groups 2. Impaired standing balance 3. Impaired activity tolerance Impairments are contributing to the following functional limitations: 1. Inability to safely ambulate without assistive device 2. Increase completion time for mobility ADL performance 3. Increased fall risk Patient is assessed as a 85064 moderate complexity based on the following: History: 84-year-old female with impairment level findings, functional limitations, and past medical history as indicated above Examination: Demonstrable impairment in strength, balance, and mobility level with underlying impairments and functional limitations as documented above Presentation: Evolving Decision Makin moderate complexity Goals: Goals X1 week Goals X1 week 1. Supine-Sit independent 2. Sit-Supine independent 3. Sit-Stand independent 4. Stand-Sit independent 5. Bed-Chair independent 6. Chair-Bed independent 7. Independent gait on level surface with use of 4WW for at least 100 feet without report of pain nor dyspnea 8. Good static and dynamic standing balance/tolerance Plan of Care/Treatment Plan: 1-2x/day, 7 days/week x 1 week. Plan of care has been reviewed with the PLANT GUIDE providing the service under Physical Therapy direction. Initiate Physical Therapy intervention for strengthening, bed mobility, transfers, gait, stairs, balance training, use of assistive device. DISCHARGE RECOMMENDATIONS: [] Home with no services [] [X] Home with services. Home when medically cleared by hospitalist. Patient will benefit from home health PT services in order to progress mobility level using least restrictive assistive ambulatory device, assess home safety, identify additional equipment needs, and establish a functional maintenance program that will increase ability of patient to remain at home. Will benefit from occupational therapy services to assess safety of self-care and dressing needs. [] Home with outpatient PT [] [] SNF for continued rehabilitation [] [] [facility] Care [] [] SNF versus LTC based on ability to participate and progress [] TREATMENT CODE/TIME: 83122 x 27 minutes beginning at 15:12 PM. Thank you for the opportunity to participate in the care of this patient. Alix Hannah PT, DPT, CLT [facility] [place], [place]
--- NOTE | 2021-03-17 15:12 | PGE_ITS ---
Date of Service Date of service: 03/17/21 Time of Service: 15:13 Assessment and Plan Assessment and plan (1) Acute CVA (cerebrovascular accident): Status: Acute Assessment and plan: In light of her atrial fibrillation/atrial flutter patient will need to remain on anticoagulation for stroke prevention. However after discussion with Dr. Diamond from neurology she is recommend that we do not bridge her with heparin or Lovenox because of the risk of conversion to hemorrhagic stroke. Ideally she would like to see her on a D.O.A.C. that the patient has had reaction to D.O.A.C. in the past and could not afford the prescription cost. For now we will just maintain her on warfarin and adjust her dose accordingly to get her INR therapeutic between 2.5 and 3.0. Meanwhile we will work on reducing her other risk factors including controlling her cholesterol and her diabetes mellitus and hypertension. For now allowing some mild passive hypertension for the first 48 hours. (2) Heart failure with reduced ejection fraction: Status: Acute Assessment and plan: Discontinue diltiazem CD in favor of up titration of her Toprol-XL. I have increased her Toprol-XL from 200 mg a day to 200 mg in the morning and 100 mg at night. I will discontinue her lisinopril in favor of Entresto which I will start tomorrow morning since her last dose of lisinopril was last night. Upon discharge she will be prescribed Entresto as well as an SGLT2 inhibitor. I will start her on increased dose of furosemide. At home she was taken 40 mg daily. This will be increased to 80 mg orally twice a day. (3) Atrial flutter: Status: Acute Assessment and plan: Rate control with beta-patrica. In light of her heart failure with reduced ejection fraction we will discontinue her Cardizem CD. If she needs further rate control could add low-dose digoxin. Continue anticoagulation with warfarin (4) Elevated troponin: Status: Acute Assessment and plan: Probably type II demand ischemia. Troponin levels of leveled out in the 300s. If blood pressure will allow could start on long- acting nitrate. Otherwise continue aspirin and warfarin. (5) Essential hypertension: Status: Acute Assessment and plan: Med adjustments as listed above under heart failure and atrial flutter. (6) Diabetes mellitus: Status: Chronic Assessment and plan: Consider addition of an SGLT2 inhibitor upon discharge. For now we will monitor with blood sugars before meals and at bedtime and cover with sliding scale Subjective Subjective Interval history since last seen: Patient's word finding/aphasia has improved. She is able to name objects including detailed objects. Such as my watch in the particular watch and specifically the time of my watch. She denies a headache blurred vision nausea or vomiting and denies any chest pain. She does have exertional dyspnea with mild activity but tolerated physical therapy this afternoon. Exam Narrative Exam Narrative: Elderly female able to sit up in bed on her own and ambulated with a front wheel walker with physical therapy. Lungs with bibasilar rales Heart is irregularly irregular at a controlled rate no appreciable murmur Abdomen is obese soft and nontender Legs with 2+ pitting edema from mid tibia down to her feet Objective Last Vital Signs Temp 36.6 C 03/17/21 08:31 Pulse 93 H 03/17/21 08:31 Resp 18 03/17/21 08:31 BP 169/78 H 03/17/21 08:31 Pulse Ox 97 03/17/21 08:31 Laboratory Results - last 24 hr 03/16/21 03/16/21 03/16/21 13:45 15:00 16:50 PT INR Potassium Magnesium 2.1 Troponin I 272 H* SARS-CoV-2 (PCR) Negative 03/16/21 03/17/21 03/17/21 21:48 07:00 07:00 PT 11.9 H INR 1.2 H Potassium 3.1 L Magnesium Troponin I 333 H* 379 H* SARS-CoV-2 (PCR) 03/17/21 12:20 PT INR Potassium Magnesium Troponin I 375 H* SARS-CoV-2 (PCR)
[2021-03-17] MEDS: Furosemide 40 MG TAB 80 MG PO (16:30)
[2021-03-17 16:58] LABS: Potassium 3.7 mmol/L (3.5-5.1)
--- NOTE | 2021-03-17 17:38 | CHAPLAIN ---
Linda was resting in bed when I visited. She was pleasant but did not seem interested in a conversation. According to Care Management notes, Linda is a Jehovah Witness and member of the [employer]. I didn't have this information today, but tomorrow will ask her if she'd like me to connect her to her [employer].
[2021-03-17] MEDS: Metoprolol CR 100 MG TABCR PO (21:18)
[2021-03-18] VITALS (9 sets, daily range): BP systolic 127–171; BP diastolic 80–97; PULSE 90–109; RESP 17–19; TEMP 36.3–37.6; O2SAT 93–96
[2021-03-18] MEDS: Normal Saline 1,000 ML 75 ML IV (01:53)
[2021-03-18 07:26] LABS: INR 1.3 (0.9-1.1); Prothrombin Time 12.8 sec (9.3-11.0)
[2021-03-18 07:38] LABS: Hemoglobin A1C 8.7 % (<5.7)
[2021-03-18 07:49] LABS: Anion Gap 5.9 mmol/L (3-11); BUN 20 mg/dL (7-18); CO2 31.1 mmol/L (21.0-32.0); CREATININE 1.5 mg/dL (0.55-1.02); Calcium 8.5 mg/dL (8.5-10.1); Calculated LDL 159 mg/dL (<100); Chloride 100 mmol/L (98-107); Cholesterol 236 mg/dL (<200); Glucose 233 mg/dL (74-106); HDL Cholesterol 55 mg/dL (40-60); Magnesium 1.9 mg/dL (1.8-2.4); Potassium 3.2 mmol/L (3.5-5.1); Sodium 137 mmol/L (136-145); Triglyceride 111 mg/dL (<150)
[2021-03-18 07:52] LABS: Troponin I 330 ng/L (<or=60)
[2021-03-18 08:11] LABS: NT-proBNP 4669 pg/mL (<300)
[2021-03-18] MEDS: Sacubitril/Valsartan 24 mg/26 mg TAB 1 EACH PO ×2 (09:02→20:23)
[2021-03-18] MEDS: Metoprolol CR 50 MG TABCR 200 MG PO (09:02)
[2021-03-18] MEDS: Magnesium Oxide 400 MG TAB PO (09:02)
[2021-03-18] MEDS: Aspirin E.C. 81 MG TABEC PO (09:02)
[2021-03-18] MEDS: Potassium Chloride 20 MEQ TABCR PO (09:02)
[2021-03-18] MEDS: Furosemide 40 MG TAB 80 MG PO (09:02)
[2021-03-18] MEDS: Insulin Aspart 300 UNITS/3 ML PEN SC ×3 (09:03→17:05)
[2021-03-18] MEDS: Docusate Sodium 100 MG CAP PO ×2 (09:03→20:23)
--- NOTE | 2021-03-18 09:24 | CMPROGNOTE_ITS ---
- If Service Date Differs Date of service: 03/18/21 Time of Service: 09:24 Care Management Progress Note S/O: Linda was sitting up in bed when CM met with her. She was pleasant and easily engaged in conversation. She is being followed by neurology and reports that she feels good. She is working with PT and getting stronger. She has no concerns at this time. A: 86 year old female admitted to [facility] on 03/16/21 for Acute CVA, Atrial Flutter, Heart Failure, Elevated Troponin P:Anticipate, Linda will be discharged home when medically cleared by provider with [facility] PT/Speech therapy services. She will follow up with Neurology and her community providers. She will be driven home by family via private vehicle. CM will continue to support patient and monitor her discharge planning needs.
--- NOTE | 2021-03-18 13:04 | PGE_ITS ---
Date of Service Date of service: 03/18/21 Time of Service: 13:05 Assessment and Plan Assessment and plan (1) Acute CVA (cerebrovascular accident): Status: Acute Assessment and plan: Continue risk reduction with control of her cholesterol and diabetes mellitus. Titrate warfarin to therapeutic INR. No heparin bridging in light of her moderate size stroke due to increased risk of conversion to hemorrhagic stroke. Continue work on control of A. fib rate and goal-directed therapy for her heart failure. Follow-up with Dr. Diamond in a month. Continue outpatient physical therapy and speech therapy upon discharge. Anticipate discharge in the next 24 hours. (2) Heart failure with reduced ejection fraction: Status: Acute Assessment and plan: Continue goal-directed therapy with titration of her Toprol-XL as well as addition of Entresto and diuretic therapy. Will prescribe empagliflozin upon discharge. (3) Atrial flutter: Status: Acute Assessment and plan: As above. Titrate warfarin to achieve an INR of 2.5. I recommend that the patient be prescribed a prothrombin time meter to be used at home. Qualifiers: Atrial flutter type: atypical Qualified Code(s): I48.4 - Atypical atrial flutter (4) Elevated troponin: Status: Acute Assessment and plan: Probably type II demand ischemia. Troponin levels of leveled out in the 300s. If blood pressure will allow could start on long- acting nitrate. Otherwise continue aspirin and warfarin. (5) Essential hypertension: Status: Acute Assessment and plan: Med adjustments as listed above under heart failure and atrial flutter. (6) Diabetes mellitus: Status: Chronic Assessment and plan: Consider addition of an SGLT2 inhibitor upon discharge. 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 She is not having as much problems with finding the right words to say. Speech seems to be coherent and fluent. She did well with physical therapy T ambulating with a front wheeled walker. Physical therapy has cleared her to return home with home health services. I discussed her case with Dr. Diamond and while it would be ideal if the patient could go on a D.O.A.C. she can not afford this. I checked w/ our pharmacy where she gets her prescriptions and it would be $342 per month for xarelto 15 mg daily. We will continue to titrate her warfarin dose to an INR of 2.5. Patient denies any chest pain or pressure. She gets mild dyspnea w/ activity such as P.T. however she says that this is her baseline. I am adjusting her meds to work towards goal directed therapy of her afib and her HFREF. I have increased her Toprol XL to 200 mg bid (and stopped her diltiazem) and put her on oral torsemide and Entresto. Upon discharge I will prescribe Empagliflozin. Exam Narrative Exam Narrative: Elderly white female sitting up in her chair alert and oriented to person place time circumstance Lungs with bibasilar rales no rhonchi or wheezes Heart irregularly irregular at a controlled rate Legs with 2+ pitting edema of the ankles and lower legs Objective Last Vital Signs Temp 37.2 C 03/18/21 11:29 Pulse 100 H 03/18/21 11:29 Resp 18 03/18/21 11:29 BP 127/80 03/18/21 11:29 Pulse Ox 93 03/18/21 11:29 Laboratory Results - last 24 hr 03/17/21 03/18/21 03/18/21 16:30 06:47 06:47 PT INR Sodium 137 Potassium 3.7 3.2 L Chloride 100 Carbon Dioxide 31.1 Anion Gap 5.9 BUN 20 H Creatinine 1.5 H Estimated GFR/1.73 m2 33.00 Glucose 233 H Hemoglobin A1c 8.7 H Calcium 8.5 Magnesium 1.9 Troponin I 330 H* NT-Pro-B Natriuret Pep 4669 H Triglycerides 111 Total Cholesterol 236 H LDL Cholesterol, Calc 159 H HDL Cholesterol 55 03/18/21 06:47 PT 12.8 H INR 1.3 H Sodium Potassium Chloride Carbon Dioxide Anion Gap BUN Creatinine Estimated GFR/1.73 m2 Glucose Hemoglobin A1c Calcium Magnesium Troponin I NT-Pro-B Natriuret Pep Triglycerides Total Cholesterol LDL Cholesterol, Calc HDL Cholesterol
[2021-03-18] MEDS: Potassium Chloride 10 MEQ CAPCR 20 MEQ PO ×2 (14:46→20:23)
--- NOTE | 2021-03-18 15:37 | PT.INTREAT ---
Date of service: 03/18/21 Time of Service: 12:46 PT Notes Visit Reasons: Stroke Inpatient Physical Therapy Treatment Note [facility] Date: 03/18/2021 PRECAUTIONS: Activity as tolerated SUBJECTIVE: Linda is pleasant and agreeable to participating in PT. She reports that she gets SOB at home, but know when to stop and rest. OBJECTIVE: PAIN: No c/o pain BED MOBILITY/TRANSFERS Supine-sit: I Sit-stand: I Stand-sit: I GAIT Assistive Device: 4WW Weight bearing: Full Assist: S Distance: 100' + 150' Deviation: SOB, seated rest THEREX: Patient cwas instructed in a LE strengthening program, completed while seated in her chair, as per flow sheet. 4WW MECHANICS: Patient demonstrates appropriate and safe 4WW mechanics including use of brakes, locks, and seat. ASSESSMENT: Patient tolerated session well, although with c/o SOB with gait training. She was able to tolerate a progression in gait distance with 4WW support and supervision. She demonstrates independence with transfers and bed mobility at this time. PLAN: Continue with gait training and general conditioning for improved activity tolerance. TREATMENT CODE/TIME: 17 minutes; 51300 (10:42)
--- NOTE | 2021-03-18 15:48 | W.PM.PROGNOT ---
Date of Service Date of service: 03/18/21 Time of Service: 15:49 Assessment and Plan Assessment and plan (1) Acute CVA (cerebrovascular accident): Status: Acute (2) Atrial flutter: Status: Acute (3) Subtherapeutic anticoagulation: Status: Acute Assessment and plan: Ms. Bautista is an 86 year-old, right-handed woman with: #1. Acute left parietal ischemic stroke, manifested by expressive aphasia, due to cardioembolus from atrial fibrillation in the setting of subtherapeutic INR; complicated by findings of remote/prior cerebral microhemorrhage. Based on the size of her stroke, she is at increased risk of secondary hemorrhage. Given this, we have opted to keep her on ASA 81mg daily with resumption of warfarin, projecting a slow return to therapeutic INR over several days. However, given failure of warfarin despite excellent medication adherence, best recommendation would be to switch to NOAC which compared with warfarin has less risk for recurrent ischemia and hemorrhage. She notes ADRs with Eliquis previously as well as difficulty with affording the medication. Please look to see if Xarelto would be an affordable option at this time. If Xarelto is an option, would not start for 1 week given risk of hemorrhage with current stroke. Also recommend the addition of statin medication acutely. Long-term benefits of statin less clear in her age-group. Awaiting PT and ST. She lives alone. #2. Goals of care. Goals of care should be addressed as outpatient. Consider palliative care consult. She expresses that sometimes she wishes she would not wake up in the morning. Not suicidal. She should follow-up in the neurology clinic in 4-6 weeks. Please call with any further questions or concerns. Subjective Subjective Interval history since last seen: Speech appears improved. Otherwise doing well. Wants to return home. Notes that she would be ready to if she didn't wake up in the morning. A1c = 8.7 Exam Narrative Exam Narrative: Physical Exam: Constitutional: Patient of apparent stated age, well nourished, well developed, no acute distress Neuro: MS/Language/Speech: Alert, oriented, fluency appears intact; no naming, repetition, or comprehension issues; no dysarthria Motor: Normal bulk and tone. FMM intact, no pronator drift. Coordination: Finger to nose performed without dysmetria Objective Last Vital Signs Temp 99.0 F 03/18/21 11:29 Pulse 100 H 03/18/21 15:23 Resp 18 03/18/21 11:29 BP 127/80 03/18/21 11:29 Pulse Ox 93 03/18/21 11:29 Laboratory Results - last 24 hr 03/17/21 03/18/21 03/18/21 16:30 06:47 06:47 PT INR Sodium 137 Potassium 3.7 3.2 L Chloride 100 Carbon Dioxide 31.1 Anion Gap 5.9 BUN 20 H Creatinine 1.5 H Estimated GFR/1.73 m2 33.00 Glucose 233 H Hemoglobin A1c 8.7 H Calcium 8.5 Magnesium 1.9 Troponin I 330 H* NT-Pro-B Natriuret Pep 4669 H Triglycerides 111 Total Cholesterol 236 H LDL Cholesterol, Calc 159 H HDL Cholesterol 55 03/18/21 06:47 PT 12.8 H INR 1.3 H Sodium Potassium Chloride Carbon Dioxide Anion Gap BUN Creatinine Estimated GFR/1.73 m2 Glucose Hemoglobin A1c Calcium Magnesium Troponin I NT-Pro-B Natriuret Pep Triglycerides Total Cholesterol LDL Cholesterol, Calc HDL Cholesterol
[2021-03-18] MEDS: Torsemide 20 MG TAB PO (20:23)
[2021-03-18] MEDS: Warfarin 4 MG TAB 8 MG PO (20:23)
[2021-03-18] MEDS: Metoprolol CR 100 MG TABCR 200 MG PO (20:23)
[2021-03-19 03:15] VITALS: BP 150/84; PULSE 90; RESP 19; TEMP 36.8; O2SAT 97
[2021-03-19 07:01] VITALS: PULSE 80
[2021-03-19 07:11] LABS: Anion Gap 7.8 mmol/L (3-11); BUN 34 mg/dL (7-18); CO2 31.2 mmol/L (21.0-32.0); CREATININE 1.7 mg/dL (0.55-1.02); Calcium 9.3 mg/dL (8.5-10.1); Chloride 98 mmol/L (98-107); Estimated GFR 28.56 (mL/min/1.73m2); Glucose 218 mg/dL (74-106); Potassium 3.5 mmol/L (3.5-5.1); Sodium 137 mmol/L (136-145)
[2021-03-19 07:14] LABS: INR 1.5 (0.9-1.1)
[2021-03-19] MEDS: Torsemide 20 MG TAB PO (08:00)
[2021-03-19 08:02] VITALS: BP 143/97; PULSE 96; RESP 18; TEMP 36.4; O2SAT 97
[2021-03-19] MEDS: Metoprolol CR 50 MG TABCR 200 MG PO (08:36)
[2021-03-19] MEDS: Potassium Chloride 10 MEQ CAPCR 20 MEQ PO ×2 (08:36→13:31)
[2021-03-19] MEDS: Magnesium Oxide 400 MG TAB PO (08:37)
[2021-03-19] MEDS: Aspirin E.C. 81 MG TABEC PO (08:37)
[2021-03-19] MEDS: Insulin Aspart 300 UNITS/3 ML PEN SC ×2 (08:40→13:32)
[2021-03-19] MEDS: Docusate Sodium 100 MG CAP PO (09:56)
[2021-03-19] MEDS: Sacubitril/Valsartan 24 mg/26 mg TAB 1 EACH PO (09:57)
--- NOTE | 2021-03-19 11:31 | PT.INTREAT ---
Date of service: 03/19/21 Time of Service: 10:42 PT Notes Visit Reasons: Stroke Inpatient Physical Therapy Treatment Note [facility] Date: 03/19/2021 PRECAUTIONS: Activity as tolerated SUBJECTIVE: Linda is pleasant and agreeable to participating in PT. She states that she is feeling better today and that she just finished washing herself up. She reports that she feels steady and safe ambulating in her room with 4WW. OBJECTIVE: PAIN: No c/o pain BED MOBILITY/TRANSFERS Sit-stand: I Stand-sit: I Bed-Chair: I Chair-bed: I GAIT Assistive Device: 4WW Weight bearing: Full Assist: S Distance: 150' x2 Deviation: SOB, seated rest, increased pacing 4WW MECHANICS: Patient demonstrates appropriate and safe 4WW mechanics including use of brakes, locks, and seat. ASSESSMENT: Patient tolerated session well, although with c/o SOB with gait training. She was able to tolerate a progression in gait distance with 4WW support and supervision. She demonstrates independence with transfers and bed mobility at this time. PLAN: Patient cleared for independent transfers and bed mobility within her room with 4WW support. TREATMENT CODE/TIME: 17 minutes; 44792 (10:42)
--- NOTE | 2021-03-19 11:56 | SP_ITS ---
Date of service: 03/19/21 Time of Service: 11:56 Shanell Mckeon was contacted at bedside in her M/S room this date for cognitive- communication assessment. She was pleasant and agreeable to participate in this evaluation. She believes her level of function is at baseline, describes some baseline difficulty with word-finding during moments of fatigue, stress, etc. Denies any current disturbance to speech, voice, swallowing, cognition, language. States she had some increased word-finding difficulty upon admit which has resolved. Referring physician: Dr. Cruz, Hospitalist Primary Dx & Reason for referral: Left CVA with expressive aphasia. Need DC recs from SILVERING APPLICATOR HPI & Summary: Patient is an 86 YO F with PMH significant for atrial fibriilation, on Coumadin, as well as HTN, DVT and DM. She was admitted to [facility] with sudden onset confusion and disturbance of speech. Found to have some word finding difficulty in the ER. MRI showing acute left parietal infarct. She has been followed by palliative care. Neurology also consulted. Prior cognitive history unremarkable. No Hx prior SILVERING APPLICATOR services. Medical History Acute on chronic systolic heart failure Arthritis Atrial fibrillation with rapid ventricular response COVID-19 ruled out by clinical criteria Elevated troponin GERD (gastroesophageal reflux disease) NSTEMI (non-ST elevated myocardial infarction) [place]/2019[place] [facility] [place] Type II diabetes mellitus with complication, uncontrolled (05/14/14) UTI (urinary tract infection) All Active Problems Acute CVA (cerebrovascular accident) (Acute) Atrial flutter with rapid ventricular response (Acute) Elevated troponin (Acute) Right rotator cuff tear (Acute) All medications reviewed (Acute) Excessive vitamin intake (Chronic) her naturopathic remedies have many times more than 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 of vitamins CKD (chronic kidney disease), stage II (Chronic) Eructation (Acute) Tachycardia (Acute) Vaccine counseling (Acute) encouraged her to take COVID-19 vaccine; unlikely she will Fatigue (Acute) Dyspnea (Acute) Sensorineural hearing loss of both ears (Acute) Prerenal azotemia (Acute) Hearing loss (Acute) History of carpal tunnel surgery of left wrist (Acute 01/30/20) Lives alone (Chronic) Leg length discrepancy (Chronic) History of right hip replacement (Chronic) Pain in left thigh (Chronic) Goals of care, counseling/discussion (Acute) Ambulatory dysfunction (Acute) Hyponatremia (Chronic) 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) Iron deficiency anemia (Chronic) Postoperative anemia due to acute blood loss (Acute) Acute deep vein thrombosis (DVT) of right lower extremity (Acute) DNI (do not intubate) (Acute) DNR (do not resuscitate) (Acute) POLST (Physician Orders for Life-Sustaining Treatment) (Chronic) Refusal of blood transfusions as patient is Evangelical (Acute) Complementary medicine (Chronic) Palliative care patient (Chronic) Renal insufficiency (Chronic) Fracture of head of right femur (Chronic) s/p R Anterior DARIEL (10/04/19) Constipation (Acute) Chronic low back pain (Chronic) Impaired left ventricular function (Acute [place]05/2019[place] [facility] [place] Right knee pain (Acute) Right groin pain (Acute) Tachycardia (Acute) CHF (congestive heart failure) (Chronic) Hypertensive retinopathy (Acute) Hypertension (Chronic) Retinopathy, background, nonproliferative, mild (Acute 01/01/16) Mild obstructive sleep apnea (Acute 11/17/15) [facility] Hyperlipidemia (Chronic) Essential hypertension (Acute 01/04/13) echo 2007 LVH uncontrolled BP (neg w/u for pheo) Atrial fibrillation (Chronic 05/27/11) paroxysmal Oct 2009 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 Good insight. Appears accurate shank faker. Without confusion. Oral motor/CN exam: Unremarkable, including non-speech AMR's Adequate cough strength/laryngeal sufficiency. Volitional swallow robust & timely to palpation. [place] Swallow Screen/3 oz water test: PASS Speech: Lingual, labial, palatal speech AMR/SMR's: Requiring some clarification/training to task likely c/b task novelty and hearing status. Once understood, productions with WNL rate, rhythm, coordination. Automatic speech: no errors No dsyarthric or apraxic speech features detected across formal and conversation tasks. Language: --Western Aphasia Battery - Revised -- --Bedside Record Form-- Spontaneous Speech Content: +1010 Spontaneous Speech Fluency: +10/10 Comments: Patient with grammatical, fluent verbal expression. Appreciating min to none abnormal pausing. No overt word-finding errors. No paraphasic errors, speech is not telegraphic. Appropriate use of functor words. Appropriate syntax, lexical variety, and Auditory Verbal Comprehension, Y/N questions: +10/10 Sequential Commands: +8/10 Comments: Patient confused pen with coin in 2 step complex instructions, but no errors on subsequent, more difficult task. May be complicated by hearing status. Repetition: +10/10 Object Naming: +10/10 Reading: +/10 Comments: Suspect baseline LOF per patient description of prior reading level Writing: +/10 Comments: Largely accurate, patient leaving out some functor words for efficiency, suspect this was due to informal approach to task vs. aphasic. Bedside Aphasia Score: 97 Bedside Language Score: 95 Education provided: [x] Results of this examination [x] Role of SILVERING APPLICATOR in CVA workup, recovery [x] Impact of CVA on cognitive, communication, swallow function [x] Basic strategy training for word-finding difficulties. Assessment Patient appears to be WFL/baseline cognitive-communication function. She does complain of, but does not demonstrate this date, occasional word-finding challenges exacerbated in times of fatigue or stress, but describes this as baseline level of function prior to her stroke. Provided education and basic communication strategy training this date. If she finds herself struggling with communication in the future, she is welcome to seek outpatient SILVERING APPLICATOR services for additional training. Recommendations: D/C: Return home, no outpatient or home health SILVERING APPLICATOR services needed at this time unless patient identifies a need in the future. Plan No further SILVERING APPLICATOR services necessary. Antonia Thomas, [facility]-SILVERING APPLICATOR [facility] Speech-Language Pathology [phone] Time spent: 40 min Codin Speech & language evaluation Coding
[2021-03-19 12:45] VITALS: BP 123/81; PULSE 60; RESP 16; TEMP 36.9; O2SAT 99
--- NOTE | 2021-03-19 14:50 | DSE_ITS ---
Date of service: 03/19/21 Time of Service: 14:50 DS: Diagnosis Discharge Diagnosis (1) Acute CVA (cerebrovascular accident): Status: Acute (2) Heart failure with reduced ejection fraction: Status: Acute (3) Atrial flutter: Status: Acute (4) Elevated troponin: Status: Acute (5) Essential hypertension: Status: Acute (6) Diabetes mellitus: Status: Chronic Discharge Plan Disposition Patient Disposition: HOME W/HOME HEALTH SERVICE Condition: Improving Discharge Details Reason For Visit: Stroke Admit Date/Time: 03/16/21 18:24 Admit Provider: Rakesh Soto Attending Provider: Rakesh Soto Primary Care Provider: Rad Yeh Hospital Course Hospital Course: This is a 86 year old female with history of atrial fibrillation anticoagulated on coumadin, who suffered an acute left parietal ischemic stroke while subtheraupeutic with her INR despite medication adherence. She experienced expressive aphasia and was working with speech therapy progressing. Neurology consulted and recommended that switching to eliquis or xarelto would be favorable, but she is unable to afford it and [facility]. She will be started on a statin as well. Echocardiogram showed moderate to severely reduce left ventricular systolic function with an EF of 30-35%. Additional medication adjustments to optimize her heart failure were suggested but she was unable to afford entresto also so will be discharged on diovan. She was diureses with good effect, potassium needing replacement. Her diabetes noted to be not well managed with hemoglobin A1C of 8.7. She is cleared by PT for safe home discharge. It is recommended that she continue with home health PT/OT, she will also be ordered for nursing and speech therapy. Her INR at time of discharge is 1.5. she will continue with 8 mg of coumadin daily and recheck INR on Tuesday03/23/21, further coumadin adjustments per outpatient team. discharge discussed with DR Cruz. Home Meds and New Rx's Prescriptions: New potassium chloride 10 mEq Capsule, Extended Release 20 meq PO TID Qty: 90 RF: 0 torsemide 20 mg Tablet 20 mg PO BID Qty: 60 RF: 0 warfarin [Jantoven] 4 mg Tablet 8 mg PO QPM Qty: 60 RF: 0 valsartan [Diovan] 40 mg tablet 20 mg PO BID Qty: 60 RF: 0 atorvastatin 40 mg tablet 40 mg PO QPM Qty: 30 RF: 0 Continued ketoconazole 2 % cream 1 applic topical QPM PRNRF: 0 Tresiba FlexTouch U-100 100 unit/mL (3 mL) insulin pen 16 unit SC QHS Qty: 15 RF: 4 ascorbic acid (vitamin C) 500 MG tablet 2 tab PO DAILY PRN RF: 0 Hold Instructions: Patient reports getting her vitamin C from multivitamin. chromium picolinate 1,000 MCG tablet 1,000 mcg PO daily prn RF: 0 Hold Instructions: Patient reports not taking for a while. aspirin [Adult Low Dose Aspirin] 81 mg tablet,delayed release (DR/EC) 81 mg PO DAILY RF: 0 nitroglycerin 0.4 mg tablet, sublingual 0.4 mg Sublingual Q 5 MIN PRN Qty: 25 RF: 4 docusate sodium [Colace] 100 mg Capsule 100 mg PO BID Qty: 60 RF: 0 magnesium oxide 400 mg (241.3 mg magnesium) Tablet 400 mg PO DAILY Qty: 10 RF: 0 sennosides [Senokot] 8.6 mg Tablet 1 tab PO BID PRN PRNQty: 60 RF: 0 acetaminophen 500 mg capsule 500 mg PO Q4H PRN PRN (Reason: pain) Qty: 0 RF: 0 Changed metoprolol succinate 200 mg tablet extended release 24 hr 200 mg PO BID Qty: 90 RF: 0 warfarin 5 mg tablet 8 mg PO DAILY Qty: 60 RF: 5 Discontinued diltiazem HCl 240 mg capsule,extended release 24 hr 240 mg PO QAM Qty: 90 RF: 3 lisinopril 5 mg tablet 5 mg PO HS Qty: 90 RF: 3 furosemide 40 mg tablet 40 mg PO DAILY Qty: 90 RF: 3 No Action (DME) pen needle, diabetic [BD Ultra-Fine Juliann Pen Needle] 32 gauge x 5/32 needle See Dose Instructions .ROUTE .MEDSUPPLY Qty: 100 RF: 3 Discharge Instructions Instructions: Ischemic Stroke (DC) Stand Alone Forms: Nursing Discharge Form Referrals: Rad Yeh MD [Primary Care Provider] - (Please call the office on Tuesday to schedule follow up appointment for 1-2 weeks.) Georgiana Diamond MD [ [facility] STAFF PHYSICIAN] - (The office will call you to schedule an appointment.) Activity:: Activity as Tolerated Equipment/Supplies:: Walker Diet:: Carb Counting Discharge Orders Discharge Orders: Discharge Order (Routine); Ordered 03/19/21 Ordered By: Marlin Block Other Ambulatory Orders: Basic Metabolic Panel (Routine) Timeframe: 20210323 Location: None Selected Ordered By: Marlin Block Complete Blood Count w/Diff (Routine) Timeframe: 20210323 Location: None Selected Ordered By: Marlin Block Prothrombin Time (Routine) Timeframe: 20210323 Location: None Selected Ordered By: Marlin Block DS: Summary Time Spent with Patient providing and/or coordinating discharge services: Greater than 30 minutes Status at Discharge Functional status at discharge: uses cane/walker Overall status at discharge: patient is progressing back to baseline Mental Status: mental status grossly normal Speech and Movement: speech and movement normal Mood: congruent mood Affect: normal affect Exam Narrative Exam Narrative: Elderly white female in no acute distress, frail appearing alert and oriented to person place time circumstance Lungs with bibasilar rales no rhonchi or wheezes, respirations even and unlabored Heart irregularly irregular at a controlled rate Legs with 2+ pitting edema of the ankles and lower legs Psych Mental Status: mental status grossly normal Speech and Movement: speech and movement normal Mood: congruent mood Affect: normal affect DS: Data Vitals/I&O Vitals and I&O: Vital Signs Temperature 36.9 C 03/19/21 12:45 Temperature Source Tympanic 03/19/21 12:45 Pulse 60 03/19/21 12:45 Pulse Rhythm Irregular 03/19/21 11:24 Pulse 98 H 03/16/21 17:16 Respiratory Rate 16 03/19/21 12:45 Respiratory Effort Non-Labored 03/19/21 11:24 Respiratory Depth Normal 03/19/21 11:24 Respiratory Pattern Normal 03/19/21 11:24 Blood Pressure 123/81 03/19/21 12:45 Blood Pressure Mean 105 03/16/21 17:31 Blood Pressure Position Sitting 03/16/21 13:25 Pulse Oximetry 99 03/19/21 12:45 Oxygen Delivery Method Room Air 03/19/21 12:45 Oxygen Flow Rate 0 03/19/21 12:45 Pain Level 0 03/19/21 12:45 Comment 03/19/21 08:02 Intake & Output 03/18/21 03/19/21 03/19/21 23:59 11:59 23:59 Intake Total 730 / 1271.25 240 / 240 Output Total 1400 / 2400 600 / 800 200 / 800 Balance -670 / -1128.75 -360 / -560 -200 / -560 Intake: Oral 730 / 980 240 / 240 Output: Urine 1400 / 2400 600 / 800 200 / 800 Other: Urine Color Yellow Yellow Yellow Urine Appearance Clear Clear Urine Odor Normal Normal Voiding Methods Toilet Toilet Data Completed and Pending Labs on day of discharge: Labs from last 24 hours 03/19/21 03/19/21 06:35 06:35 PT 15.0 H INR 1.5 H Sodium 137 Potassium 3.5 Chloride 98 Carbon Dioxide 31.2 Anion Gap 7.8 BUN 34 H D Creatinine 1.7 H Estimated GFR/1.73 m2 28.56 Glucose 218 H Calcium 9.3 PFSH All Active Problems (Updated 03/18/21 @ 16:49 by Yong Cruz) Subtherapeutic anticoagulation (Acute) Heart failure with reduced ejection fraction (Acute) Elevated troponin (Acute) Atrial flutter (Acute) Acute CVA (cerebrovascular accident) (Acute) Elevated troponin (Acute) Right rotator cuff tear (Acute) All medications reviewed (Acute) Excessive vitamin intake (Chronic) her naturopathic remedies have many times more than PLANT 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 of vitamins CKD (chronic kidney disease), stage II (Chronic) Eructation (Acute) Tachycardia (Acute) Vaccine counseling (Acute) encouraged her to take COVID-19 vaccine; unlikely she will Fatigue (Acute) Dyspnea (Acute) Sensorineural hearing loss of both ears (Acute) Prerenal azotemia (Acute) Hearing loss (Acute) History of carpal tunnel surgery of left wrist (Acute 01/30/20) Lives alone (Chronic) Leg length discrepancy (Chronic) History of right hip replacement (Chronic) Pain in left thigh (Chronic) Goals of care, counseling/discussion (Acute) Ambulatory dysfunction (Acute) Hyponatremia (Chronic) 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) Iron deficiency anemia (Chronic) Postoperative anemia due to acute blood loss (Acute) Acute deep vein thrombosis (DVT) of right lower extremity (Acute) DNI (do not intubate) (Acute) DNR (do not resuscitate) (Acute) POLST (Physician Orders for Life-Sustaining Treatment) (Chronic) Refusal of blood transfusions as patient is Adventism (Acute) Complementary medicine (Chronic) Palliative care patient (Chronic) Renal insufficiency (Chronic) Fracture of head of right femur (Chronic) s/p R Anterior DARIEL (10/04/19) Constipation (Acute) Chronic low back pain (Chronic) Impaired left ventricular function (Acute ~05/2019) [facility] [place] 35% Right knee pain (Acute) Right groin pain (Acute) Tachycardia (Acute) CHF (congestive heart failure) (Chronic) Hypertensive retinopathy (Acute) Hypertension (Chronic) Retinopathy, background, nonproliferative, mild (Acute 01/01/16) Mild obstructive sleep apnea (Acute 11/17/15) [facility] Hyperlipidemia (Chronic) Essential hypertension (Acute 01/04/13) echo 2007 LVH uncontrolled BP (neg w/u for pheo) Atrial fibrillation (Chronic 05/27/11) paroxysmal Oct 2009 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) [place] with out of hosp cardiac arrest LAD stent, LVEF 35% Carpal tunnel syndrome on both sides (Acute) s/p Left ECTR 01/30/2020 Lumbar stenosis (Acute) Foot drop, left (Acute) Low back pain (Acute) Diabetes mellitus out of control (Acute) Noncompliance with medication regimen (Acute 09/26/12) Spinal stenosis at L4-L5 level (Chronic) Diabetes mellitus (Chronic) Chronic anticoagulation (Chronic) Counseling on health promotion and disease prevention (Acute) Medical History Acute on chronic systolic heart failure Arthritis Atrial fibrillation with rapid ventricular response COVID-19 ruled out by clinical criteria Elevated troponin GERD (gastroesophageal reflux disease) NSTEMI (non-ST elevated myocardial infarction) (~05/2019) [facility] [place] Pedal edema Type II diabetes mellitus with complication, uncontrolled (05/14/14) UTI (urinary tract infection) Surgical History History of appendectomy Family History Brother Cancer Brother Cancer Leukemia Mother Asthma Sister Cancer Brother Dementia lives in SNF Son Prostate cancer Fall from ladder Son Paraplegic spinal paralysis motor vehicle crash Son No problems noted. Son No problems noted. 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 [employer] Pets and animals: Yes (one cat, Fancy) Pets and animals: cat(s) Current gender identity: female What is your relationship status?: How often do you talk on the phone with friends or family?: three or more times per week How often do you get together with friends or relatives?: three or more times per week How often do you attend orthodox or evangelical services?: 4 or more times per year Panel score (0-1 are the most socially isolated patients): 2 What type of physical activity do you participate in: assisted ambulation Duration: 15-30 minutes/day Frequency: does not exercise Faviola/Confucianism: Adventism Special faviola needs: Yes (no transfusion) Agree to transfusion: No Seatbelt use: always Drive intox or ride w/intox truck driver helper: No Do you feel safe at home: Yes Do you feel safe in your relationship?: Yes Additional Social history: Lives alone but sons and their spouses check in. in 2001. Linda's family hires [employer] to help with housework mostly. Hip pain better since her surgery with Dr Stovall. Lately, her biggest health problems have been chronic dyspnea, low exercise tolerance. Would like to go outside more but NEEDS BIG WHEELED walker, suitable for outdoors walking. Not going outside much these days and would like to. Dyspepsia better with chiropractic and naturopathic care, per Linda.
--- NOTE | 2021-03-19 15:42 | PDOC.HHF2F_ITS ---
Home Health Certification Home Health Certification: 1. Encounter Date and Reason I certify that Linda Bautista was seen by Marlin Block on 03/19/21 and that I had a [id number] encounter with this patient that meets the physician face to face encounter requirements. 2. Clinical Findings Supporting Skilled Need and Homebound Status I certify that home health services are medically necessary, include either intermittent prison and/or physical/speech therapy, and that this patie nt is homebound in that absences from the home require considerable and taxing effort and are infrequent or of short duration, or are attributable to the need to receive medical care. [X] (a) Attached documentation from encounter provides clinical findings supporting skilled need and homebound status (including what assistance patient requires to leave the home). The encounter with the patient was in whole, or in part, for the following medical condition, which is the primary reason for home health care: Stroke with aphasia, coumadin therapy, heart failure Retirement: routine nursing evaluation and nursing care. weight, vitals, INR/labs Physical and occupational Therapy: routine evaluation and treatment, home safety evaluation Speech Therapy: routine cognitive-communication evaluation for acute CVA with expressive aphasia Homebound: unable to safely leave the house unassisted d/t cognitive impairment 3. Certification and Authentication I certify that I composed the above information based on my clinical judgment relating to this patient's medical condition and, if applicable, clinical findings communicated to me by the NPP or inpatient physician who performed the Home Health Referral. All further orders will be obtained through Jeanine Yeh MD_(Community Based Physician - PCP)
--- NOTE | 2021-03-19 15:48 | PDOC.CMDIS ---
- If Service Date Differs Date of service: 03/19/21 Time of Service: 15:48 LACE Index Scoring Tool - Questions: Length of Stay (in days): 3 Acuity (Admit via E.D.?): Yes Comorbidities: Previous M.I., Congestive Heart Failure, Chronic Pulmonary Disease, Mild Liver/Renal Disease E.D. Visits: 4 - Answers: Total Score: 15 Risk of Readmission: High Risk Care Management Discharge Reason for Hospitalization: Stroke Discharge Plan: Discharge home with New [facility] RN/PT/OT/Speech via private vehicle with family. Follow up with community providers and discharge plan of care as prescribed. Patient/Family Education Needs: Review discharge instructions, limitations, medications and plan to follow up with community providers. ask me three. Services Needed at Discharge: Home Health Care Services ([facility] SN/PT/OT/Speech, CM notified Peña from [facility])
--- NOTE | 2021-03-23 17:22 | INDS_ITS ---
Date of service: 03/23/21 PT Notes Visit Reasons: Stroke Physical Therapy Inpatient Discharge Summary Date: 03/23/2021 Dates of service: 03/17 through 03/19/2021 only This is a clinical summary of care provided for the duration of dates listed above. No charge was made in the completion of this documentation. Referring Doctor: Yong Cruz MD PT Orders: PT CONSULT: Fall safety assessment Precautions: Fall. Standard. Activity as tolerated. Patient Profile/Admitting Diagnosis: Linda is an 86-year-old female who presented to the ED on 03/16/2021 with complaints of feeling unwell , and word finding difficulty. Patient is diagnosed with acute CVA, elevated troponin, hypertension, and diabetes mellitus. PMHX: All Active Problems Acute CVA (cerebrovascular accident) (Acute) Atrial flutter with rapid ventricular response (Acute) Elevated troponin (Acute) Right rotator cuff tear (Acute) All medications reviewed (Acute) Excessive vitamin intake (Chronic) her naturopathic remedies have many times more than STAFF ENGINEER of vitamins CKD (chronic kidney disease), stage II (Chronic) Eructation (Acute) Tachycardia (Acute) Vaccine counseling (Acute) encouraged her to take COVID-19 vaccine; unlikely she will Fatigue (Acute) Dyspnea (Acute) Sensorineural hearing loss of both ears (Acute) Prerenal azotemia (Acute) Hearing loss (Acute) History of carpal tunnel surgery of left wrist (Acute 01/30/20) Lives alone (Chronic) Leg length discrepancy (Chronic) History of right hip replacement (Chronic) Pain in left thigh (Chronic) Goals of care, counseling/discussion (Acute) Ambulatory dysfunction (Acute) Hyponatremia (Chronic) 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) Iron deficiency anemia (Chronic) Postoperative anemia due to acute blood loss (Acute) Acute deep vein thrombosis (DVT) of right lower extremity (Acute) DNI (do not intubate) (Acute) DNR (do not resuscitate) (Acute) POLST (Physician Orders for Life-Sustaining Treatment) (Chronic) Refusal of blood transfusions as patient is Yazdanism (Acute) Complementary medicine (Chronic) Palliative care patient (Chronic) Renal insufficiency (Chronic) Fracture of head of right femur (Chronic) s/p R Anterior DARIEL (10/04/19) Constipation (Acute) Chronic low back pain (Chronic) Impaired left ventricular function (Acute ~05/2019) [facility]; 35% Right knee pain (Acute) Right groin pain (Acute) Tachycardia (Acute) CHF (congestive heart failure) (Chronic) Hypertensive retinopathy (Acute) Hypertension (Chronic) Retinopathy, background, nonproliferative, mild (Acute 01/01/16) Mild obstructive sleep apnea (Acute 11/17/15) [facility] Hyperlipidemia (Chronic) Essential hypertension (Acute 01/04/13) echo 2007 LVH uncontrolled BP (neg w/u for pheo) Atrial fibrillation (Chronic 05/27/11) paroxysmal Oct 2009 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) [place] with out of hosp cardiac arrest LAD stent, LVEF 35% Carpal tunnel syndrome on both sides (Acute) s/p Left ECTR 01/30/2020 Lumbar stenosis (Acute) Foot drop, left (Acute) Low back pain (Acute) Diabetes mellitus out of control (Acute) Noncompliance with medication regimen (Acute 09/26/12) Spinal stenosis at L4-L5 level (Chronic) Diabetes mellitus (Chronic) Chronic anticoagulation (Chronic) Counseling on health promotion and disease prevention (Acute) Medical History Acute on chronic systolic heart failure Arthritis Atrial fibrillation with rapid ventricular response COVID-19 ruled out by clinical criteria Elevated troponin GERD (gastroesophageal reflux disease) NSTEMI (non-ST elevated myocardial infarction) (~05/2019) [facility] Pedal edema Type II diabetes mellitus with complication, uncontrolled (05/14/14) UTI (urinary tract infection) Surgical History History of appendectomy Social History/Home Situation: Linda lives alone in a private home with a ramp to enter. She was independent with a 4-wheeled walker for all mobility ADL perfo rmance. Cooks her own meals. 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 Equipment Owned/DME: 4WW Subjective: NT. See most recent JAVA GRAILS DEVELOPER notes. Objective: General Observation: NT. See most recent JAVA GRAILS DEVELOPER notes. Mental Status: NT. See most recent JAVA GRAILS DEVELOPER notes. Pain: NT. See most recent JAVA GRAILS DEVELOPER notes. ROM: Right Upper Extremity: Shoulder Flexion WFL. Shoulder abduction WFL. Elbow flexion WFL. Wrist flexion WFL. Functional opening and closing of hand WFL. Left Upper Extremity: Shoulder Flexion WFL. Shoulder abduction WFL. Elbow flexion WFL. Wrist flexion WFL. Functional opening and closing of hand WFL. Right Lower Extremity: Hip flexion WFL. Hip abduction WFL. Knee flexion WFL. Ankle dorsiflexion WFL. Ankle plantarflexion WFL. Left Lower Extremity: Hip flexion WFL. Hip abduction WFL. Knee flexion WFL. Ankle dorsiflexion WFL. Ankle plantarflexion WFL. Strength: Right Upper Extremity: Shoulder flexors 4-/5. Shoulder abductors 4-/5. Elbow flexors 4-/5. Elbow extensors 4-/5. Sandblast Carver weak but functional. Left Upper Extremity: Shoulder flexors 4-/5. Shoulder abductors 4-/5. Elbow flexors 4-/5. Elbow extensors 4-/5. Sandblast Carver weak but functional. Right Lower Extremity: Hip flexors 4-/5. Hip abductors 4-/5. Knee flexors 4/5. Knee extensors 4-/5. Ankle dorsiflexors 4-/5. Ankle plantarflexors 4-/5. Left Lower Extremity: Hip flexors 4-/5. Hip abductors 4-/5. Knee flexors 4/5. Knee extensors 4-/5. Ankle dorsiflexors 4-/5. Ankle plantarflexors 4-/5. Sensation: Intact as to pain and pressure on bilateral lower extremities. Bed Mobility/Transfers: Supine to sit independent Sit to stand independent Stand to sit independent Bed to chair independent Chair to bed independent Gait: Linda tolerated level surface ambulation of 150 feet x 2 using the four- wheeled walker with FWB on B LE needing supervision. Increased stance time on the left side. Increase trunk flexion. Mild foot drop noted on the left. Denies headache, chest pain, and dizziness throughout ambulation activity. Balance: Static Sitting: Normal Dynamic Sitting: Normal Static Standing: Fair Dynamic Standing: Fair Assessment: Patient presents with clinical signs and symptoms consistent with current/admitting diagnoses that have resulted to mobility limitations, gait instability, generalized weakness, and impairment of motor control as demonstrated by the following impairment level findings: 1. Decreased strength to BLE major muscle groups 2. Impaired standing balance 3. Impaired activity tolerance Impairments are contributing to the following functional limitations: 1. Inability to safely ambulate without assistive device 2. Increase completion time for mobility ADL performance 3. Increased fall risk Goals: Goals X1 week 1. Supine-Sit independent MET 2. Sit-Supine independent MET 3. Sit-Stand independent MET 4. Stand-Sit independent MET 5. Bed-Chair independent MET 6. Chair-Bed independent MET 7. Independent gait on level surface with use of 4WW for at least 100 feet without report of pain nor dyspnea NOT MET 8. Good static and dynamic standing balance/tolerance NOT MET DISCHARGE RECOMMENDATIONS: [] Home with no services [] [X] Home with services. Home when medically cleared by hospitalist. Patient will benefit from home health PT services in order to progress mobility level using least restrictive assistive ambulatory device, assess home safety, identify additional equipment needs, and establish a functional maintenance program that will increase ability of patient to remain at home. Will benefit from occupational therapy services to assess safety of self-care and dressing needs. [] Home with outpatient PT [] [] SNF for continued rehabilitation [] [] Penitentiary Care [] [] SNF versus LTC based on ability to participate and progress [] TREATMENT CODE/TIME: NC. Thank you for the opportunity to participate in the care of this patient. Alix Hannah PT, DPT, CLT [facility] [place], [place]
== END 2021-03-19 16:39 | disposition home health service (06) | DRG 65 ==
LOC: ER 17:37 → MS 03-17 12:58
PROVIDERS: Internal Medicine; Student in an Organized Health Care Education/Training Program; Admitting Provider General Practice; Emergency Provider Emergency Medicine; PCP Family Medicine; Visit Provider General Practice
DX: I63.49 Cerebral infarction due to embolism of other cerebral artery (principal); I13.0 Hypertensive heart and chronic kidney disease with heart failure and stage 1 through stage 4 chronic kidney disease, or unspecified chronic kidney disease; I50.22 Chronic systolic (congestive) heart failure; I48.4 Atypical atrial flutter; I24.8 Other forms of acute ischemic heart disease; R47.01 Aphasia; R74.8 Abnormal levels of other serum enzymes; Z79.01 Long term (current) use of anticoagulants; E11.22 Type 2 diabetes mellitus with diabetic chronic kidney disease; D50.9 Iron deficiency anemia, unspecified; I25.10 Atherosclerotic heart disease of native coronary artery without angina pectoris; E11.65 Type 2 diabetes mellitus with hyperglycemia; N18.32 Chronic kidney disease, stage 3b; I48.91 Unspecified atrial fibrillation; Z79.4 Long term (current) use of insulin
CPT/HCPCS: 36415; 70496; 70498; 80048; 80053; 80061; 87077; 87635; 93005; 93306; 96365; 96366; 97110; 97162; 97530; 99223; 99232; 99285; 70450; 70551; 71046; 81003; 81015; 83036; 83605; 83735; 83880; 84132; 84484; 85025; 85610; 87086; 87186; 92523; 93010; 99219; 99226; 99239; G0378; J3480; J3490

== ENCOUNTER → 2021-03-17 07:42 | Outpatient (BNVA) | payer MEDICARE, OTHER, SELFPAY | PROVIDERS: PCP Family Medicine; Referring Provider Family Medicine; Visit Provider Psychiatry & Neurology Neurology | DX: R69 Illness, unspecified (principal) ==

== ENCOUNTER 2021-03-23 11:46 | Outpatient (REF) | payer MEDICARE, OTHER, SELFPAY ==
[2021-03-23 11:26] LABS: HCT 40.1 % (36.0-46.0); HGB 13.1 g/dL (11.2-15.7); MCH 30.2 pg (27.0-33.0); MCHC 32.7 % (32.0-36.0); MCV 92.4 fL (80-95); Platelet Count 197 10^3/uL (130-400); RBC 4.34 10^6/uL (3.93-5.22); RDW 13.4 % (11.7-14.6); WBC 7.16 10^3/uL (4.4-10.8)
[2021-03-23 11:48] LABS: Anion Gap 11.3 mmol/L (3-11); BUN 42 mg/dL (7-18); CO2 26.7 mmol/L (21.0-32.0); CREATININE 2.1 mg/dL (0.55-1.02); Calcium 8.7 mg/dL (8.5-10.1); Chloride 99 mmol/L (98-107); Estimated GFR 22.38 (mL/min/1.73m2); Glucose 292 mg/dL (74-106); Potassium 4.5 mmol/L (3.5-5.1); Sodium 137 mmol/L (136-145)
== END 2021-03-23 11:47 | disposition home or self-care (01) ==
LOC: LBN 11:46
PROVIDERS: PCP Family Medicine; Visit Provider Family Medicine
DX: I50.22 Chronic systolic (congestive) heart failure (principal); I63.9 Cerebral infarction, unspecified
CPT/HCPCS: 80048; 85027

== ENCOUNTER → 2021-05-06 10:49 | Outpatient (BNVA) | payer MEDICARE, OTHER, SELFPAY | PROVIDERS: PCP Family Medicine; Referring Provider Family Medicine; Visit Provider Psychiatry & Neurology Neurology | DX: I69.320 Aphasia following cerebral infarction (principal); I48.91 Unspecified atrial fibrillation; Z79.01 Long term (current) use of anticoagulants; M48.061 Spinal stenosis, lumbar region without neurogenic claudication; M21.372 Foot drop, left foot | CPT/HCPCS: 99214 ==

== ENCOUNTER → 2021-06-11 09:54 | Outpatient (BNVA) | payer MEDICARE, OTHER, SELFPAY | PROVIDERS: PCP Family Medicine; Visit Provider Internal Medicine Cardiovascular Disease | DX: I48.4 Atypical atrial flutter (principal); I50.22 Chronic systolic (congestive) heart failure; I10 Essential (primary) hypertension; Z79.01 Long term (current) use of anticoagulants; I25.10 Atherosclerotic heart disease of native coronary artery without angina pectoris | CPT/HCPCS: 99214; 99213 ==

== ENCOUNTER 2021-06-25 04:15 | Outpatient (CLI) | payer MEDICARE, OTHER, SELFPAY ==
[2021-06-25 13:49] LABS: Anion Gap 7.6 mmol/L (3-11); BUN 45 mg/dL (7-18); CO2 29.4 mmol/L (21.0-32.0); Calcium 9.1 mg/dL (8.5-10.1); Chloride 96 mmol/L (98-107); Estimated GFR 23.68 (mL/min/1.73m2); Glucose 474 mg/dL (74-106); Sodium 133 mmol/L (136-145)
[2021-06-25 14:51] LABS: Hemoglobin A1C 11.5 % (<5.7)
== END 2021-06-25 04:16 | disposition home or self-care (01) ==
LOC: LBO 04:15
PROVIDERS: PCP Family Medicine; Visit Provider Family Medicine
DX: E87.1 Hypo-osmolality and hyponatremia (principal); E11.65 Type 2 diabetes mellitus with hyperglycemia; N18.2 Chronic kidney disease, stage 2 (mild)
CPT/HCPCS: 36415; 80048; 83036

== ENCOUNTER → 2021-10-16 10:52 | Outpatient (BNVA) | payer MEDICARE, OTHER, SELFPAY | PROVIDERS: PCP Family Medicine; Visit Provider Internal Medicine Cardiovascular Disease | DX: R60.0 Localized edema (principal); I50.22 Chronic systolic (congestive) heart failure; I48.11 Longstanding persistent atrial fibrillation; I25.10 Atherosclerotic heart disease of native coronary artery without angina pectoris | CPT/HCPCS: 99214; 99213 ==

== ENCOUNTER 2021-10-29 03:36 | Outpatient (CLI) | payer MEDICARE, OTHER, SELFPAY ==
[2021-10-29 12:39] LABS: Prothrombin Time 18.9 sec (9.3-11.0)
[2021-10-29 12:46] LABS: Anion Gap 5.1 mmol/L (3-11); BUN 46 mg/dL (7-18); CO2 31.9 mmol/L (21.0-32.0); CREATININE 1.7 mg/dL (0.55-1.02); Calcium 9.4 mg/dL (8.5-10.1); Chloride 99 mmol/L (98-107); Estimated GFR 28.56 (mL/min/1.73m2); Glucose 179 mg/dL (74-106); Potassium 3.8 mmol/L (3.5-5.1); Sodium 136 mmol/L (136-145); TSH (W/Ref FT4) 5.33 uIU/mL (0.36-3.74)
[2021-10-29 13:10] LABS: FREE T4 1.25 ng/dL (0.76-1.46)
== END 2021-10-29 03:37 | disposition home or self-care (01) ==
LOC: LOS 03:40
PROVIDERS: PCP Family Medicine; Visit Provider Nurse Practitioner
DX: I10 Essential (primary) hypertension (principal); G47.00 Insomnia, unspecified; I48.91 Unspecified atrial fibrillation; Z79.01 Long term (current) use of anticoagulants
CPT/HCPCS: 36415; 80048; 84439; 84443; 85610

== ENCOUNTER → 2022-02-16 09:39 | Outpatient (BNVA) | payer MEDICARE, OTHER, SELFPAY | PROVIDERS: PCP Family Medicine; Visit Provider Internal Medicine Cardiovascular Disease | DX: I50.23 Acute on chronic systolic (congestive) heart failure (principal); I48.11 Longstanding persistent atrial fibrillation; I10 Essential (primary) hypertension; R60.0 Localized edema; I50.22 Chronic systolic (congestive) heart failure; I25.10 Atherosclerotic heart disease of native coronary artery without angina pectoris; R06.02 Shortness of breath | CPT/HCPCS: 99214 ==

== ENCOUNTER 2022-03-02 12:03 | Inpatient (IN) | payer MEDICARE, OTHER, SELFPAY ==
[2022-03-02] VITALS (54 sets, daily range): BP systolic 97–150; BP diastolic 62–133; PULSE 69–135; RESP 16–36; TEMP 36.3–36.8; O2SAT 92–100
--- NOTE | 2022-03-02 12:00 | RT.EKG_ITS ---
APPROVED REPORT Exam: Resting ECG Reason for Exam: CHF Patient Location: E HR:134 bpm ECG Measurements Heart Rate 134 AXIS NC 73 P -24 QRSd 129 QRS -58 QT 338 T 116 QTc 505 Conclusion Sinus tachycardia...rate> 99 Atrial premature complex...SV complex w/ short R-R interval RBBB and LAFB...QRSd >120mS, axis(-40,240) LVH with secondary repolarization abnormality...multi-LVH criteria, abnrm ST-T
[2022-03-02] MEDS: Metoprolol 5 MG/5 ML VIAL IVP ×3 (12:38→12:56)
[2022-03-02 12:41] LABS: Abs Immature Grans 0.02 10^3/uL (0.0-0.06); Absolute Basophil Count 0.05 10^3/uL (0.0-0.2); Absolute Eosinophil Count 0.09 10^3/uL (0.0-0.7); Absolute Monocyte Count 0.78 10^3/uL (0.1-0.8); Absolute Neutrophil Count 6.26 10^3/uL (1.2-6.7); Basophils % 0.6; HCT 39.7 % (36.0-46.0); HGB 13.3 g/dL (11.2-15.7); Immature Grans % 0.2; Lymphocytes % 19.1; MCH 30.4 pg (27.0-33.0); MCHC 33.5 % (32.0-36.0); MCV 91 fL (80-95); Monocytes % 8.8; Neutrophils % 70.3; Platelet Count 171 10^3/uL (130-400); RBC 4.37 10^6/uL (3.93-5.22); RDW 12.7 % (11.7-14.6); RDW-SD 42.7 fL
[2022-03-02 13:05] LABS: ALT 28 U/L (14-59); AST 26 U/L (15-37); Albumin 3.1 g/dL (3.4-5.0); Alkaline Phosphatase 128 U/L (46-116); BUN 38 mg/dL (7-18); Bilirubin, Total 0.3 mg/dL (0.2-1.0); CREATININE 2.1 mg/dL (0.55-1.02); Calcium 9.1 mg/dL (8.5-10.1); Chloride 95 mmol/L (98-107); Estimated GFR 22.52 (mL/min/1.73m2); Glucose 487 mg/dL (74-106); Magnesium 2.3 mg/dL (1.8-2.4); Potassium 4.4 mmol/L (3.5-5.1); Sodium 134 mmol/L (136-145); TSH (W/Ref FT4) 7.68 uIU/mL (0.36-3.74); Total Protein 7.6 g/dL (6.4-8.2)
[2022-03-02 13:06] LABS: Troponin I 238 ng/L (<or=60)
[2022-03-02] MEDS: Metoprolol 25 MG TAB PO (13:09)
--- NOTE | 2022-03-02 13:39 | DI.RAD_ITS ---
Exam(s) XR PORTABLE CHEST AP EXAM: XR PORTABLE CHEST AP CLINICAL HISTORY: shortness of breath TECHNIQUE: 2D digital imaging was performed of the chest. One image was obtained. An AP view was ob tained. COMPARISON: CR XR PORTABLE CHEST AP from 06/04/2019 CR XR CHEST 2V PA LATERAL from 03/16/2021 FINDINGS: MEDIASTINUM: Normal. HEART: Normal. PULMONARY VASCULATURE: Normal. LUNGS: There is poor inspiration with crowding of the pulmonary vasculature. No focal consolidating infiltrates are seen. PLEURAL SPACE: No pleural effusion or pneumothorax. BONE:Within normal limits for the patient's age. There are degenerative changes in the shoulders bila terally. OTHER FINDINGS:Normal. IMPRESSION: 1. There is poor inspiration. 2. No definite acute pulmonary process. DATA REPOSITORY: RADIATION DOSE DELIVERED:
[2022-03-02 13:40] LABS: NT-proBNP 1862 pg/mL (<300)
[2022-03-02] MEDS: Furosemide 100 MG/10 ML VIAL 80 MG IVP (13:50)
--- NOTE | 2022-03-02 13:54 | ED.GENADUL_ITS ---
Discharge Plan Disposition Patient Disposition: Admit to [facility] Condition: Serious Discharge Details Clinical Impression: Chronic HFrEF (heart failure with reduced ejection fraction), Chronic anticoagulation, Atrial flutter, Elevated troponin Admit Date/Time: 03/02/22 14:34 Admit Provider: Nitish Sanchez Attending Provider: Nitish Sanchez Primary Care Provider: Rad Yeh ED Provider: Merary Gregory Discharge Data Discharge Date/Time-TO BE ENTERED AT DEPARTURE: 03/02/22 15:44 Medical Decision Making 87-year-old female with multiple comorbidities, specifically CHF, atrial fibrillation, and chronic anticoagulation with an ejection fraction of 30 to 35% who needs to be admitted for diuresis secondary to chronic rapid atrial fibrillation and volume overload status Secondary to your current presentation and chronic comorbidities, chest x-ray and labs were ordered, EKG shows A. fib with RVR, given 3 5 mg doses of IV metoprolol and 25 mg p.o. of metoprolol with pulse now resting in the 90s, still irregular Blood pressure remained stable Received 60 mg of IV Lasix secondary to likely volume overload status Troponin is elevated to 38, this appears to be patient's baseline when compared to prior Creatinine 2.1, slightly trending upward, likely secondary to need for diuresis Confirmed that patient produces urine and she is had some decreased response with her torsemide which she did take this morning, she also took her diltiazem today. At this time she will need admission for diuresis and possible cardiology consultation, she is agreeable to stay in the hospital at this time She is DNR/DNI status, she is remained on telemetry monitoring Medical Records Medical records reviewed: Yes I reviewed the patient's medical records. Lab Data Lab results reviewed: Yes I reviewed the patient's lab results. Sign Out No HPI General Date/Time Provider Initiated Documentation: 03/02/22 12:08 . HPI Narrative: This 87-year-old female with a history of morbid obesity, CVA, atrial flutter, elevated troponin dyspnea, fatigue, chronic anticoagulation presents with reports of worsening dyspnea on exertion, which began, and overall feeling unwell. She denies any chest discomfort. She denies any fever or chills. She states she has had worsening calf swelling. She saw her skin diver several weeks ago and it was recommended she be admitted for diuresis, she declined at that time. She presents today secondary to worsening symptoms and is willing to be hospitalized. She denies any current chest discomfort. She states she does not able to take more than 1-2 steps without feeling very dyspneic. Related Data Home Medications Medication Instructions Recorded Confirmed ascorbic acid (vitamin C) 500 mg 1,000 mg PO DAILY 07/15/12 03/05/22 tablet aspirin 81 mg tablet,delayed 81 mg PO DAILY 06/20/19 02/16/22 release (Adult Low Dose Aspirin) docusate sodium 100 mg capsule 100 mg PO BID #60 caps 10/14/19 03/02/22 (Colace) magnesium oxide 400 mg (241.3 mg 400 mg PO DAILY #10 tabs 10/14/19 03/02/22 magnesium) tablet metoprolol succinate 200 mg 200 mg PO DAILY #90 tabs 05/20/21 03/02/22 tablet,extended release 24 hr torsemide 20 mg tablet 20 mg PO BID #180 tabs 05/20/21 03/02/22 valsartan 40 mg tablet (Diovan) 40 mg PO DAILY #90 tabs 05/20/21 03/05/22 nitroglycerin 0.4 mg sublingual 0.4 mg sublingual Q 5 MIN PRN #15 06/10/21 03/02/22 tablet tab-caps diltiazem HCl 240 mg capsule,24 240 mg PO DAILY #90 caps 07/06/21 03/02/22 hr,extended release pen needle, diabetic 32 gauge x #100 ea 09/04/21 02/16/22 5/32 (BD Ultra-Fine Juliann Pen Needle) insulin degludec 100 unit/mL (3 24 unit (0.24 mL) subcut QHS #15 mL 09/22/21 03/02/22 mL) subcutaneous pen (Tresiba FlexTouch U-100 insulin) warfarin 4 mg tablet (Jantoven) 4 mg PO QPM #180 tabs 12/01/21 03/02/22 potassium chloride 10 mEq 10 meq PO DAILY #90 caps 12/17/21 03/02/22 capsule,extended release artifi.tears(hypromellose)(PF) 0.3 1 drp ophthalmic (eye) HS 03/02/22 03/02/22 % eye drops psyllium husk 0.52 gram capsule 0.52 g PO QHS 03/02/22 03/02/22 Previous Rx's Medication Instructions Recorded docusate sodium 100 mg capsule 100 mg PO BID #60 caps 10/14/19 (Colace) magnesium oxide 400 mg (241.3 mg 400 mg PO DAILY #10 tabs 10/14/19 magnesium) tablet metoprolol succinate 200 mg 200 mg PO DAILY #90 tabs 05/20/21 tablet,extended release 24 hr torsemide 20 mg tablet 20 mg PO BID #180 tabs 05/20/21 valsartan 40 mg tablet (Diovan) 40 mg PO DAILY #90 tabs 05/20/21 nitroglycerin 0.4 mg sublingual 0.4 mg sublingual Q 5 MIN PRN #15 06/10/21 tablet tab-caps diltiazem HCl 240 mg capsule,24 240 mg PO DAILY #90 caps 07/06/21 hr,extended release pen needle, diabetic 32 gauge x #100 ea 09/04/21 (BD Ultra-Fine Juliann Pen Needle) insulin degludec 100 unit/mL (3 24 unit (0.24 mL) subcut QHS #15 mL 09/22/21 mL) subcutaneous pen (Tresiba FlexTouch U-100 insulin) warfarin 4 mg tablet (Jantoven) 4 mg PO QPM #180 tabs 12/01/21 potassium chloride 10 mEq 10 meq PO DAILY #90 caps 12/17/21 capsule,extended release Allergies Allergy/AdvReac Type Severity Reaction Status Date / Time Tetanus Vaccines and Toxoid Allergy Intermediate Verified 03/02/22 12:13 doxycycline AdvReac Severe GI UPSET Verified 03/02/22 12:13 verapamil AdvReac Severe dizziness Verified 03/02/22 12:13 doxazosin mesylate AdvReac Intermediate muscle Verified 03/02/22 12:13 [From Cardura] aches atenolol AdvReac Mild leg pain Verified 03/02/22 12:13 General Stated Complaint: GenMedical GELA: 2 Review of Systems All systems reviewed & are unremarkable except as noted in HPI and below PFSH All Active Problems (Updated 03/07/22 @ 11:36 by RAMOS Gutierrez) Open wound of both lower extremities (Acute) Morbid obesity (Acute) Edema (Chronic) right leg> left Weakness generalized (Acute) has not returned to baseline since stroke Atrial flutter (Acute) Elevated troponin (Acute) CKD (chronic kidney disease), stage II (Chronic) on cusp of stage 3 Fatigue (Acute) Dyspnea (Acute) 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) has hearing aids Goals of care, counseling/discussion (Acute) Ambulatory dysfunction (Acute) 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) Refusal of blood transfusions as patient is Latter-day (Acute) CHF (congestive heart failure) (Chronic) Hypertension (Chronic) Mild obstructive sleep apnea (Acute 11/17/15) [facility] Hyperlipidemia (Chronic) Chronic anticoagulation (Chronic) Medical History (Updated 03/07/22 @ 11:36 by RAMOS Gutierrez) Acute CVA (cerebrovascular accident) Acute deep vein thrombosis (DVT) of right lower extremity Acute on chronic systolic heart failure All medications reviewed Arthritis ASCVD (arteriosclerotic cardiovascular disease) (04/22/15) DC with out of hosp cardiac arrest LAD stent, LVEF 35% Atrial fibrillation (05/27/11) paroxysmal Oct 2009 Atrial fibrillation with rapid ventricular response Carpal tunnel syndrome on both sides s/p Left ECTR 01/30/2020 Chronic low back pain Complementary medicine Constipation Counseling on health promotion and disease prevention COVID-19 ruled out by clinical criteria Diabetes mellitus Diabetes mellitus out of control DNI (do not intubate) DNR (do not resuscitate) Eructation Essential hypertension (01/04/13) echo 2007 LVH uncontrolled BP (neg w/u for pheo) Excessive vitamin intake her naturopathic remedies have many times more than [employer] OP of vitamins Foot drop, left Fracture of head of right femur s/p R Anterior DARIEL (10/04/19) GERD (gastroesophageal reflux disease) Hearing loss Heart failure with reduced ejection fraction Hypertensive retinopathy Hyponatremia Impaired left ventricular function ([place]05/2019[place] [facility] [place] Insomnia Iron deficiency anemia Leg length discrepancy Lives alone Low back pain Lumbar stenosis Nail dystrophy Noncompliance with medication regimen (09/26/12) NSTEMI (non-ST elevated myocardial infarction) (~05/2019[place] [facility] [place] in left thigh Palliative care patient 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 Pedal edema POLST (Physician Orders for Life-Sustaining Treatment) Polypharmacy takes both allopathic and naturopathic meds Postoperative anemia due to acute blood loss Prerenal azotemia Renal insufficiency Retinopathy, background, nonproliferative, mild (01/01/16) Right arm pain Right groin pain Right knee pain Right rotator cuff tear Spinal stenosis at L4-L5 level Tachycardia Tachycardia Type II diabetes mellitus with complication, uncontrolled (05/14/14) UTI (urinary tract infection) Vaccine counseling she thinks her 03/17 TIA/CVA was due COVID-19 vaccine Surgical History (Updated 03/03/22 @ 17:48 by Janet Alejandro NP) History of appendectomy History of carpal tunnel surgery of left wrist (01/30/20) History of right hip replacement Family History Brother Cancer Brother Cancer Leukemia Mother Asthma Sister Cancer Brother Dementia lives in SNF Son Prostate cancer Fall from ladder Son Paraplegic spinal paralysis motor vehicle crash Son No problems noted. Son No problems noted. 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 [employer] Pets and animals: Yes (one cat, Fancy) Pets and animals: cat(s) Current gender identity: female What is your relationship status?: How often do you talk on the phone with friends or family?: three or more times per week How often do you get together with friends or relatives?: three or more times per week How often do you attend mandaeism or yazdanism services?: 4 or more times per year Panel score (0-1 are the most socially isolated patients): 2 What type of physical activity do you participate in: assisted ambulation Duration: 15-30 minutes/day Frequency: does not exercise Faviola/Mormonism: Latter-day Special faviola needs: Yes (no transfusion) Agree to transfusion: No Seatbelt use: always Drive intox or ride w/intox courtesy 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 in 2001. Linda's family hires [employer] to help with housework mostly. Hip pain better since her surgery with Dr Stovall. Lately, her biggest health problems have been chronic dyspnea, low exercise tolerance. Would like to go outside more but NEEDS BIG WHEELED walker, suitable for outdoors walking. Not going outside. Exam Const General: cooperative and no acute distress HENMT Head: normal to inspection Eyes Pupils: PERRL Resp Effort & Inspection: normal respiratory effort Auscultation: clear to auscultation bilaterally Cardio Rate: tachycardic Rhythm: abnormal rhythm Heart Sounds: no murmurs GI Inspection: normal to inspection Skin General skin exam: no rashes or lesions noted Neuro General: patient alert and patient oriented x3 Cranial Nerves: CN's II-XI intact bilaterally Cognition: normal cognition Speech: speech normal Extrem Other: 2+ edema to bilateral LE Course Vital Signs Vital signs: Vital Signs Temperature 36.4 C L 03/02/22 12:08 Pulse 133 H 03/02/22 12:08 Respiratory Rate 22 03/02/22 12:08 Blood Pressure 150/120 H 03/02/22 12:08 Pulse Oximetry 97 03/02/22 12:08 Temperature 36.4 C L 03/02/22 12:08 Temperature Source Skin 03/02/22 12:08 Pulse 94 H 03/02/22 12:56 Respiratory Rate 20 03/02/22 12:18 Respiratory Effort 03/02/22 13:45 Respiratory Depth Normal 03/02/22 12:18 Respiratory Pattern Normal 03/02/22 12:18 Blood Pressure 113/72 03/02/22 12:56 Blood Pressure Position Supine 03/02/22 12:08 Pulse Oximetry 97 03/02/22 12:08 Oxygen Delivery Method Room Air 03/02/22 12:08 Oxygen Flow Rate 0 03/02/22 12:08 Lab/Test Results Lab/Test Results: Laboratory Tests Range/Units 03/02/22 03/02/22 03/02/22 12:16 12:30 12:30 WBC (4.4-10.8) 10^3/uL 8.90 RBC (3.93-5.22) 10^6/uL 4.37 Hgb (11.2-15.7) g/dL 13.3 Hct (36.0-46.0) % 39.7 MCV (80-95) fL 91 MCH (27.0-33.0) pg 30.4 MCHC (32.0-36.0) % 33.5 RDW (11.7-14.6) % 12.7 Plt Count (130-400) 10^3/uL 171 MPV (8.0-11.0) fL 13.0 H Immature Gran % 0.2 Neutrophils % 70.3 Lymphocytes % 19.1 Monocytes % 8.8 Eosinophils % 1.0 Basophils % 0.6 Nucleated RBC % (0.0-0.3) % 0.0 Absolute Neutrophils (1.2-6.7) 10^3/uL 6.26 Absolute Lymphocytes (1.2-3.4) 10^3/uL 1.70 Absolute Monocytes (0.1-0.8) 10^3/uL 0.78 Absolute Eosinophils (0.0-0.7) 10^3/uL 0.09 Absolute Basophils (0.0-0.2) 10^3/uL 0.05 Sodium (136-145) mmol/L 134 L Potassium (3.5-5.1) mmol/L 4.4 Chloride (98-107) mmol/L 95 L Carbon Dioxide (21.0-32.0) mmol/L 32.0 Anion Gap (3-11) mmol/L 7.0 BUN (7-18) mg/dL 38 H Creatinine (0.55-1.02) mg/dL 2.1 H Est GFR (CKD-EPI 2020) (mL/min/1.73m2) 22.52 Glucose (74-106) mg/dL 487 H Calcium (8.5-10.1) mg/dL 9.1 Magnesium (1.8-2.4) mg/dL 2.3 Total Bilirubin (0.2-1.0) mg/dL 0.3 AST (15-37) U/L 26 ALT (14-59) U/L 28 Alkaline Phosphatase (46-116) U/L 128 H Troponin I (<or=60) ng/L 238 H* NT-Pro-B Natriuret Pep (<300) pg/mL Total Protein (6.4-8.2) g/dL 7.6 Albumin (3.4-5.0) g/dL 3.1 L TSH Cancelled 7.68 H Free T4 (0.76-1.46) ng/dL 1.20 Range/Units 03/02/22 12:30 WBC (4.4-10.8) 10^3/uL RBC (3.93-5.22) 10^6/uL Hgb (11.2-15.7) g/dL Hct (36.0-46.0) % MCV (80-95) fL MCH (27.0-33.0) pg MCHC (32.0-36.0) % RDW (11.7-14.6) % Plt Count (130-400) 10^3/uL MPV (8.0-11.0) fL Immature Gran % Neutrophils % Lymphocytes % Monocytes % Eosinophils % Basophils % Nucleated RBC % (0.0-0.3) % Absolute Neutrophils (1.2-6.7) 10^3/uL Absolute Lymphocytes (1.2-3.4) 10^3/uL Absolute Monocytes (0.1-0.8) 10^3/uL Absolute Eosinophils (0.0-0.7) 10^3/uL Absolute Basophils (0.0-0.2) 10^3/uL Sodium (136-145) mmol/L Potassium (3.5-5.1) mmol/L Chloride (98-107) mmol/L Carbon Dioxide (21.0-32.0) mmol/L Anion Gap (3-11) mmol/L BUN (7-18) mg/dL Creatinine (0.55-1.02) mg/dL Est GFR (CKD-EPI 2020) (mL/min/1.73m2) Glucose (74-106) mg/dL Calcium (8.5-10.1) mg/dL Magnesium (1.8-2.4) mg/dL Total Bilirubin (0.2-1.0) mg/dL AST (15-37) U/L ALT (14-59) U/L Alkaline Phosphatase (46-116) U/L Troponin I (<or=60) ng/L NT-Pro-B Natriuret Pep (<300) pg/mL 1862 H Total Protein (6.4-8.2) g/dL Albumin (3.4-5.0) g/dL TSH Free T4 (0.76-1.46) ng/dL Critical Care Time Critical Care Time Critical Care Time: Yes Total Critical Care Time: 45 Attestation: Telemetry monitoring, Samia fib with RVR, received metoprolol 5 mg x 3 with good rate control Received 60 mg of IV Lasix secondary to volume overload status Interpretation and review of diagnostic imaging, chest ray, diagnostic lab, hospitalist consultation
[2022-03-02 14:10] LABS: Source Nasal/Nares
[2022-03-02 14:42] LABS: COVID-19 PCR Negative (Negative)
[2022-03-02 15:20] LABS: Troponin I 230 ng/L (<or=60)
--- NOTE | 2022-03-02 16:10 | HPE_ITS ---
Date of service: 03/02/22 Time of Service: 16:11 Assessment and Plan Assessment and plan (1) Elevated troponin: Status: Acute Assessment and plan: Patient has a history of AL and troponin #1 238 was and troponin #2 230 was. We will get another troponin and if the down trend is maintained we will stop them . Then if patient reports symptoms of ACS we will get another troponin level. She also has PRN nitro 0.4 SL ordered for chest pain. (2) Atrial fibrillation: Status: Chronic Assessment and plan: Patient is on Cardizem 240 mg CD daily. she is in atrial fibrillation and her rate is between 72 and 89 since admission to the floor. We will continue telemetry and Cardizem and metoprolol XR 200 mg.We will also continue her Warfarin every night. Qualifiers: Atrial fibrillation type: longstanding persistent Qualified Code(s): I48.11 - Longstanding persistent atrial fibrillation (3) Edema: Status: Chronic Assessment and plan: Patient reported increased SOB, fatigue and swelling to lower extremities, her BNP was 1862 and Lasix 80 mg IVP was given in the ED. We will continue diuresing her with an increased dose of torsemide 40 mg PO BID. We will supplement her with oral potassium to palliate to the increased renal secretion due to the administration of loop diuretics. We will get a BMP and a CBC in AM (4) Chronic HFrEF (heart failure with reduced ejection fraction): Status: Chronic Assessment and plan: As above Patient had an EF of 30-35% on 03/17/2021. We will repeat the echocardiography. She is on metoprolol succinate, valsartan. We will inquire and think about the need for a mineralocorticoid receptor antagonist such as spironolactone to her regimen as per current guidelines. (5) Hypertension: Status: Chronic Assessment and plan: As above Qualifiers: Hypertension type: essential hypertension (6) Constipation: Status: Acute Assessment and plan: Patient reported episodes of constipation after in hospital stays in the past. She would like to continue her home bowel regimen. we will continue colace BID, magnesium oxide, magnesium citrate (7) On deep vein thrombosis (DVT) prophylaxis: Status: Acute Assessment and plan: Patient is on Warfarin and we will get a PT INR in AM (8) Diabetes mellitus: Assessment and plan: We will continue her Tresiba and POC glucose check AC and HS with SQ novolog insulin coverage as per sliding scale Qualifiers: Chronic kidney disease stage: stage 3 (moderate) Chronic kidney disease stage 3 subtype: stage 3b (GFR 30-44) Diabetes mellitus complication detail: with chronic kidney disease Diabetes mellitus complication status: with kidney complications Diabetes mellitus halfway insulin use: with extermination inspector use Diabetes mellitus type: type 2 Qualified Code(s): E11.22 - Type 2 diabetes mellitus with diabetic chronic kidney disease; N18.32 - Chronic kidney disease, stage 3b; Z79.4 - penitentiary (current) use of insulin (9) Discharge planning issues: Status: Acute Assessment and plan: Patient will go home with no need with private nonfarm animal caretaker. Assessment and plan discussed with Dr. Sanchez History of Present Illness Consults Consult date: 03/02/22 Requesting physician: Anne-Marie Swanson Narrative: This 87-year-old female with a history of morbid obesity, CVA, atrial flutter, increased troponin, dyspnea, fatigue, chronic anticoagulation presented to the ED with reports of worsening dyspnea on exertion and increased swelling to lower extremities. She reports falling asleep often and lacking energy. She denies any chest discomfort or pain in general.? She denies any fever or chills. She reports central supply tech on 02/16/22 who recommended admission for diuresis but she refused at the time. Today she is more symptomatic and is agreeable to be admitted. She received 60 mg of IV furosemide and is voiding w/o difficulty and reports feeling better. She denies nausea, vomiting, diarrhea or constipation but would like docusate for maintenance while here. Review of Systems Constitutional Constitutional: Denies excessive sweating, Reports fatigue, Denies frequent fall s and Denies headache(s) Comments: Patient is sitting in recliner comfortably. She denies pain. Eyes Eyes: Denies change in vision ENT Ears, Nose, Mouth, and Throat: Denies dysphagia, Denies dizziness, Denies dry mouth, Denies headache(s), Denies mouth lesions and Denies tinnitus Cardiovascular Cardiovascular: Reports as per HPI, Denies chest pain, Reports leg edema, Reports dyspnea on exertion and Denies paroxysmal nocturnal dyspnea Respiratory Respiratory: Denies cough and Reports dyspnea on exertion Gastrointestinal Gastrointestinal: Denies change in bowel habits, Reports constipation (and on bowel regimen at home), Denies dysphagia, Denies diarrhea, Denies nausea and Denies vomiting Genitourinary Genitourinary: Denies difficulty voiding, Denies urinary hesitancy and Denies urinary urgency Musculoskeletal Musculoskeletal: Reports arthralgias (right shoulder with exertion), Denies joint swelling and Reports limited range of motion (right shoulder) Integumentary/Breasts Skin/Breast: Reports lesions (dry rash on sternum between the breast.) Neurologic Neurologic: Denies dizziness, Denies frequent falls, Denies headache(s) and Denies tremor(s) Psychiatric Psychiatric: Denies abnormal sleep pattern, Denies change in appetite and Denies mood swings Endocrine Endocrine: Denies excessive sweating and Reports fatigue Hematologic/Lymphatic Hematologic/Lymphatic: Reports other (Reports taking Warfarin in the evening ) Allergic/Immunologic Allergic/Immunologic: Denies seasonal rhinorrhea PFSH All Active Problems (Updated 03/02/22 @ 18:52 by Jordana Scruggs) Discharge planning issues (Acute) On deep vein thrombosis (DVT) prophylaxis (Acute) Nail dystrophy (Acute) Morbid obesity (Acute) Insomnia (Acute) Right arm pain (Acute) Polypharmacy (Chronic) takes both allopathic and naturopathic meds Edema (Chronic) right leg> left Parietal lobe infarction (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 Weakness generalized (Acute) has not returned to baseline since stroke Atrial flutter (Acute) Acute CVA (cerebrovascular accident) (Acute) Elevated troponin (Acute) Right rotator cuff tear (Acute) All medications reviewed (Acute) Excessive vitamin intake (Chronic) her naturopathic remedies have many times more than SENIOR TEST ANALYST of vitamins CKD (chronic kidney disease), stage II (Chronic) on cusp of stage 3 Eructation (Acute) Tachycardia (Acute) Vaccine counseling (Acute) she thinks her 03/17 TIA/CVA was due COVID-19 vaccine Fatigue (Acute) Dyspnea (Acute) 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) has hearing aids Prerenal azotemia (Acute) Hearing loss (Acute) History of carpal tunnel surgery of left wrist (Acute 01/30/20) Lives alone (Chronic) Leg length discrepancy (Chronic) History of right hip replacement (Chronic) Pain in left thigh (Chronic) Goals of care, counseling/discussion (Acute) Ambulatory dysfunction (Acute) Hyponatremia (Chronic) 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) Iron deficiency anemia (Chronic) Postoperative anemia due to acute blood loss (Acute) Acute deep vein thrombosis (DVT) of right lower extremity (Acute) DNI (do not intubate) (Acute) DNR (do not resuscitate) (Acute) POLST (Physician Orders for Life-Sustaining Treatment) (Chronic) Refusal of blood transfusions as patient is [facility] (Acute) Complementary medicine (Chronic) Palliative care patient (Chronic) Renal insufficiency (Chronic) Fracture of head of right femur (Chronic) s/p R Anterior DARIEL (10/04/19) Constipation (Acute) Chronic low back pain (Chronic) Impaired left ventricular function (Acute ~05/2019) [facility]; 35% Right knee pain (Acute) Right groin pain (Acute) Tachycardia (Acute) CHF (congestive heart failure) (Chronic) Hypertensive retinopathy (Acute) Hypertension (Chronic) Retinopathy, background, nonproliferative, mild (Acute 01/01/16) Mild obstructive sleep apnea (Acute 11/17/15) [facility] Hyperlipidemia (Chronic) Atrial fibrillation (Chronic 05/27/11) paroxysmal Oct 2009 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) AL with out of hosp cardiac arrest LAD stent, LVEF 35% Carpal tunnel syndrome on both sides (Acute) s/p Left ECTR 01/30/2020 Lumbar stenosis (Acute) Foot drop, left (Acute) Low back pain (Acute) Diabetes mellitus out of control (Acute) Noncompliance with medication regimen (Acute 09/26/12) Spinal stenosis at L4-L5 level (Chronic) Chronic anticoagulation (Chronic) Counseling on health promotion and disease prevention (Acute) Medical History Acute on chronic systolic heart failure Arthritis Atrial fibrillation with rapid ventricular response COVID-19 ruled out by clinical criteria Diabetes mellitus Essential hypertension (01/04/13) echo 2007 [facility] uncontrolled BP (neg w/u for pheo) GERD (gastroesophageal reflux disease) Heart failure with reduced ejection fraction NSTEMI (non-ST elevated myocardial infarction) (~05/2019) [facility] [place] Pedal edema Type II diabetes mellitus with complication, uncontrolled (05/14/14) UTI (urinary tract infection) Surgical History History of appendectomy Family History Brother Cancer Brother Cancer Leukemia Mother Asthma Sister Cancer Brother Dementia lives in SNF Son Prostate cancer Fall from ladder Son Paraplegic spinal paralysis motor vehicle crash Son No problems noted. Son No problems noted. 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 Pets and animals: Yes (one cat, Fancy) Pets and animals: cat(s) Current gender identity: female What is your relationship status?: How often do you talk on the phone with friends or family?: three or more times per week How often do you get together with friends or relatives?: three or more times per week How often do you attend faith or nondenominational services?: 4 or more times per year Panel score (0-1 are the most socially isolated patients): 2 What type of physical activity do you participate in: assisted ambulation Duration: 15-30 minutes/day Frequency: does not exercise Faviola/Protestant: Restoration Special faviola needs: Yes (no transfusion) Agree to transfusion: No Seatbelt use: always Drive intox or ride w/intox emergency vehicle 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 Kelsey darby in 2001. Linda's family hires [employer] to help with housework mostly. Hip pain better since her surgery with Dr Stovall. Lately, her biggest health problems have been chronic dyspnea, low exercise tolerance. Would like to go outside more but NEEDS BIG WHEELED walker, suitable for outdoors walking. Not going outside. Meds Allergies and Home Medications Allergies Allergy/AdvReac Type Severity Reaction Status Date / Time Tetanus Vaccines and Toxoid Allergy Intermediate Verified 03/02/22 12:13 doxycycline AdvReac Severe GI UPSET Verified 03/02/22 12:13 verapamil AdvReac Severe dizziness Verified 03/02/22 12:13 doxazosin mesylate AdvReac Intermediate muscle Verified 03/02/22 12:13 [From [place]] aches atenolol AdvReac Mild leg pain Verified 03/02/22 12:13 Home Medications Medication Instructions Recorded Confirmed Type ascorbic acid (vitamin C) 500 mg 2 tab PO DAILY PRN 07/15/12 02/16/22 History tablet aspirin 81 mg tablet,delayed 81 mg PO DAILY 06/20/19 02/16/22 History release (Adult Low Dose Aspirin) docusate sodium 100 mg capsule 100 mg PO BID #60 caps 10/14/19 03/02/22 Rx (Colace) magnesium oxide 400 mg (241.3 mg 400 mg PO DAILY #10 tabs 10/14/19 03/02/22 Rx magnesium) tablet metoprolol succinate 200 mg 200 mg PO DAILY #90 tabs 05/20/21 03/02/22 Rx tablet,extended release 24 hr torsemide 20 mg tablet 20 mg PO BID #180 tabs 05/20/21 03/02/22 Rx valsartan 40 mg tablet (Diovan) 40 mg PO DAILY #90 tabs 05/20/21 02/16/22 Rx magnesium citrate 100 mg tablet 200 mg PO BID #90 tabs 06/10/21 03/02/22 Rx nitroglycerin 0.4 mg sublingual 0.4 mg sublingual Q 5 MIN PRN #15 06/10/21 03/02/22 Rx tablet tab-caps diltiazem HCl 240 mg capsule,24 240 mg PO DAILY #90 caps 07/06/21 03/02/22 Rx hr,extended release pen needle, diabetic 32 gauge x #100 ea 09/04/21 02/16/22 Rx 5/32 (BD Ultra-Fine Juliann Pen Needle) insulin degludec 100 unit/mL (3 24 unit (0.24 mL) subcut QHS #15 mL 09/22/21 03/02/22 Rx mL) subcutaneous pen (Tresiba FlexTouch U-100 insulin) warfarin 4 mg tablet (Jantoven) 4 mg PO QPM #180 tabs 12/01/21 03/02/22 Rx potassium chloride 10 mEq 10 meq PO DAILY #90 caps 12/17/21 03/02/22 Rx capsule,extended release Exam Narrative Exam Narrative: Patient is sitting in chair and is cooperative during admission interview Const General: cooperative, comfortable and no acute distress Nutritional Appearance: obese and edematous (right lower > left lower extremity) [facility] Head: normal to inspection, normocephalic and atraumatic Eyes General: appearance normal, both eyes and all related structures Alignment and Position: alignment normal and position normal Sclera: sclerae normal Neck Neck: normal visual inspection, full ROM and no lymphadenopathy Chest Chest: normal inspection of the chest and rash (midline) Resp Effort & Inspection: normal respiratory effort, able to speak in complete sentences, no cough and not tachypneic Cardio Jugular venous pressure: no JVD Rate: abnormal rate Rhythm: abnormal rhythm (atrial-fibrillation) Heart Sounds: S1 normal, S2 normal and no murmurs Pulses: radial pulses present and dorsalis pedis present GI Inspection: normal to inspection Palpation: soft, no hepatosplenomegaly and nontender Auscultation: normal bowel sounds Other: no CV angle pain Skin Rashes: rashes noted (right panis and midline chest) Neuro General: patient alert, patient awake, patient oriented x3 and focal motor deficits present Cognition: normal cognition Speech: speech normal Gait: gait assisted Motor: strength 5/5 throughout (except for right upper extremity at 3/5 to resist.) Extrem Right upper extremity: normal to inspection and shoulder/upper arm Details: other (weakness) Right lower extremity: edema (2+) Details: pitting Left lower extremity: edema Details: non-pitting and 1+ Psych Speech and Movement: speech and movement normal Mood: congruent mood Affect: normal affect Results Labs Result diagrams: 03/02/22 12:30 03/02/22 12:30 Labs: Laboratory Results - last 24 hr 03/02/22 03/02/22 03/02/22 12:16 12:30 12:30 WBC 8.90 RBC 4.37 Hgb 13.3 Hct 39.7 MCV 91 MCH 30.4 MCHC 33.5 RDW 12.7 Plt Count 171 MPV 13.0 H Immature Gran % 0.2 Neutrophils % 70.3 Lymphocytes % 19.1 Monocytes % 8.8 Eosinophils % 1.0 Basophils % 0.6 Nucleated RBC % 0.0 Absolute Neutrophils 6.26 Absolute Lymphocytes 1.70 Absolute Monocytes 0.78 Absolute Eosinophils 0.09 Absolute Basophils 0.05 Sodium 134 L Potassium 4.4 Chloride 95 L Carbon Dioxide 32.0 Anion Gap 7.0 BUN 38 H Creatinine 2.1 H Est GFR (CKD-EPI 2020) 22.52 Glucose 487 H Calcium 9.1 Magnesium 2.3 Total Bilirubin 0.3 AST 26 ALT 28 Alkaline Phosphatase 128 H Troponin I 238 H* NT-Pro-B Natriuret Pep Total Protein 7.6 Albumin 3.1 L TSH Cancelled 7.68 H Free T4 1.20 COVID-19 Source SARS-CoV-2 (PCR) 03/02/22 03/02/22 03/02/22 12:30 14:06 14:50 WBC RBC Hgb Hct MCV MCH MCHC RDW Plt Count MPV Immature Gran % Neutrophils % Lymphocytes % Monocytes % Eosinophils % Basophils % Nucleated RBC % Absolute Neutrophils Absolute Lymphocytes Absolute Monocytes Absolute Eosinophils Absolute Basophils Sodium Potassium Chloride Carbon Dioxide Anion Gap BUN Creatinine Est GFR (CKD-EPI 2020) Glucose Calcium Magnesium Total Bilirubin AST ALT Alkaline Phosphatase Troponin I 230 H* NT-Pro-B Natriuret Pep 1862 H Total Protein Albumin TSH Free T4 COVID-19 Source Nasal/Nares SARS-CoV-2 (PCR) Negative Last Vital Signs Temp 97.3 F L 03/02/22 15:55 Pulse 82 03/02/22 15:55 Resp 20 03/02/22 15:55 BP 128/84 03/02/22 15:55 Pulse Ox 97 03/02/22 15:55
[2022-03-02] MEDS: Torsemide 20 MG TAB PO (17:04)
[2022-03-02] MEDS: Insulin Aspart 300 UNITS/3 ML PEN SC ×2 (17:04→22:18)
[2022-03-02] MEDS: Docusate Sodium 100 MG CAP PO (20:06)
[2022-03-02] MEDS: Warfarin 4 MG TAB PO (20:06)
--- NOTE | 2022-03-02 21:26 | TELEP.MEDR_ITS ---
Date of service: 03/02/22 Time of Service: 21:26 Telepharmacy Home Med Rec Allergies Allergies: Tetanus Vaccines and Toxoid Allergy (Intermediate, Verified 03/02/22 12:13) doxycycline Adverse Reaction (Severe, Verified 03/02/22 12:13) GI UPSET verapamil Adverse Reaction (Severe, Verified 03/02/22 12:13) dizziness doxazosin mesylate [From Cardura] Adverse Reaction (Intermediate, Verified 03/02/22 12:13) muscle aches atenolol Adverse Reaction (Mild, Verified 03/02/22 12:13) leg pain Interview Person Interviewed: Patient interviewed Quality Quality of Interview/Accuracy of Medication List: Good Sources Sources used to compile medication list: [facility] Medication List and [employer] Changes made to Home Medication List: ADDITIONS: * Artificial Tears 1 drop both eyes HS * Psyllium husk 1 cap po HS DELETIONS: * Magnesium citrate CHANGES: * Ascorbic acid 1000mg po daily * Warfarin 2mg po daily on tuesday and tuesday, 4mg po daily all other days Additional Notes Additional Notes: * Patient organizes pill in a transportation planner a week at a time. She also takes multiple supplements that are not able to be added to the [facility] system. Albaplex and Congaplex 2 of each at night. Priority One Cardio plus 3 tabs po BID. Cascara supplement that she wasnt sure about the strength taken every evening. Recommended Changes Recommended Changes(reason for recommendation): * No recommended changes. Attestation: The home medication list is now updated to the best of my knowledge and is ready to be reconciled by the provider. Please contact the [facility] Medication Reconciliation Pharmacist at for any questions.
[2022-03-02 22:04] LABS: Troponin I 219 ng/L (<or=60)
[2022-03-03] VITALS (8 sets, daily range): BP systolic 107–148; BP diastolic 64–80; PULSE 58–107; RESP 16–21; TEMP 36.7–36.9; O2SAT 95–98
[2022-03-03 05:54] LABS: Abs Immature Grans 0.02 10^3/uL (0.0-0.06); Absolute Basophil Count 0.06 10^3/uL (0.0-0.2); Absolute Eosinophil Count 0.15 10^3/uL (0.0-0.7); Absolute Lymphocyte Count 2.15 10^3/uL (1.2-3.4); Absolute Monocyte Count 0.83 10^3/uL (0.1-0.8); Absolute Neutrophil Count 4.98 10^3/uL (1.2-6.7); Basophils % 0.7; Eosinophils % 1.8; HCT 38.1 % (36.0-46.0); HGB 12.8 g/dL (11.2-15.7); Immature Grans % 0.2; Lymphocytes % 26.3; MCH 30.5 pg (27.0-33.0); MCHC 33.6 % (32.0-36.0); MCV 91 fL (80-95); Monocytes % 10.1; Neutrophils % 60.9; Platelet Count 157 10^3/uL (130-400); RBC 4.19 10^6/uL (3.93-5.22); RDW 12.9 % (11.7-14.6); RDW-SD 42.2 fL; WBC 8.19 10^3/uL (4.4-10.8)
[2022-03-03 06:06] LABS: Anion Gap 7.1 mmol/L (3-11); BUN 40 mg/dL (7-18); CO2 32.9 mmol/L (21.0-32.0); CREATININE 1.9 mg/dL (0.55-1.02); Chloride 99 mmol/L (98-107); Glucose 146 mg/dL (74-106); Magnesium 2.4 mg/dL (1.8-2.4); Potassium 3.6 mmol/L (3.5-5.1); Sodium 139 mmol/L (136-145)
[2022-03-03 06:16] LABS: Prothrombin Time 19.5 sec (9.3-11.0)
[2022-03-03 07:09] LABS: Diff Comment Diff Reviewed; RBC Morphology Normal
[2022-03-03] MEDS: Furosemide 40 MG/4 ML VIAL IVP ×2 (07:58→15:46)
[2022-03-03] MEDS: Insulin Aspart 300 UNITS/3 ML PEN SC ×4 (08:00→21:26)
[2022-03-03] MEDS: Nystatin POWDER 60 GM JAR TP ×2 (08:03→21:27)
[2022-03-03] MEDS: Aspirin E.C. 81 MG TABEC PO (08:38)
[2022-03-03] MEDS: Docusate Sodium 100 MG CAP PO ×2 (08:38→19:20)
[2022-03-03] MEDS: Potassium Chloride 10 MEQ CAPCR PO (08:39)
[2022-03-03] MEDS: Metoprolol CR 100 MG TABCR 200 MG PO (08:39)
[2022-03-03] MEDS: Magnesium Oxide 400 MG TAB PO (08:39)
[2022-03-03] MEDS: dilTIAZem CD 120 MG CAPCR 240 MG PO (08:44)
--- NOTE | 2022-03-03 08:48 | RESPIRATORY ---
RT spoke with patient concerning listed history of NNAMDI in chart. Patient stated she no longer uses a device at night, had an incident where she couldn't get the mask off and it scared her. She stated she uses nothing at night for the NNAMDI and has returned the machine back to the DME.
--- NOTE | 2022-03-03 09:11 | PDOC.CMIN ---
- If Service Date Differs Date of service: 03/03/22 Time of Service: 09:11 Care Management Initial Assess REASON FOR HOSPITALIZATION:: CHF, Afib, RVR PAST MEDICAL HISTORY/PAST SURGICAL HISTORY:: All Active Problems (Updated 03/02/22 @ 18:52 by Jordana Scruggs). Discharge planning issues (Acute). On deep vein thrombosis (DVT) prophylaxis (Acute). Nail dystrophy (Acute). Morbid obesity (Acute). Insomnia (Acute). Right arm pain (Acute). Polypharmacy (Chronic). takes both allopathic and naturopathic meds. Edema (Chronic). right leg> left. 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 Weakness generalized (Acute). has not returned to baseline since stroke. Atrial flutter (Acute). Acute CVA (cerebrovascular accident) (Acute). Elevated troponin (Acute). Right rotator cuff tear (Acute). All medications reviewed (Acute). Excessive vitamin intake (Chronic). her naturopathic remedies have many times more than REGION MANAGER of vitamins. CKD (chronic kidney disease), stage II (Chronic). on cusp of stage 3. Eructation (Acute). Tachycardia (Acute). Vaccine counseling (Acute). she thinks her 03/17 TIA/CVA was due COVID-19 vaccine. Fatigue (Acute). Dyspnea (Acute). 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). has hearing aids. Prerenal azotemia (Acute). Hearing loss (Acute). History of carpal tunnel surgery of left wrist (Acute 01/30/20). Lives alone (Chronic). Leg length discrepancy (Chronic). History of right hip replacement (Chronic). Pain in left thigh (Chronic). Goals of care, counseling/discussion (Acute). Ambulatory dysfunction (Acute). Hyponatremia (Chronic). 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). Iron deficiency anemia (Chronic). Postoperative anemia due to acute blood loss (Acute). Acute deep vein thrombosis (DVT) of right lower extremity (Acute). DNI (do not intubate) (Acute). DNR (do not resuscitate) (Acute). POLST (Physician Orders for Life-Sustaining Treatment) (Chronic). Refusal of blood transfusions as patient is Christianity (Acute). Complementary medicine (Chronic). Palliative care patient (Chronic). Renal insufficiency (Chronic). Fracture of head of right femur (Chronic). s/p R Anterior DARIEL (10/04/19). Constipation (Acute). Chronic low back pain (Chronic). Impaired left ventricular function (Acute ~05/2019). [facility] [place] Right knee pain (Acute). Right groin pain (Acute). Tachycardia (Acute). CHF (congestive heart failure) (Chronic). Hypertensive retinopathy (Acute). Hypertension (Chronic). Retinopathy, background, nonproliferative, mild (Acute 01/01/16). Mild obstructive sleep apnea (Acute 11/17/15). [facility]. Hyperlipidemia (Chronic). Atrial fibrillation (Chronic 05/27/11). paroxysmal Oct 2009. 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). [place] with out of hosp cardiac arrest. LAD stent, LVEF 35%. Carpal tunnel syndrome on both sides (Acute). s/p Left ECTR 01/30/2020. Lumbar stenosis (Acute). Foot drop, left (Acute). Low back pain (Acute). Diabetes mellitus out of control (Acute). Noncompliance with medication regimen (Acute 09/26/12). Spinal stenosis at L4-L5 level (Chronic). Chronic anticoagulation (Chronic). Counseling on health promotion and disease prevention (Acute). Medical History . Acute on chronic systolic heart failure. Arthritis. Atrial fibrillation with rapid ventricular response. COVID-19 ruled out by clinical criteria. Diabetes mellitus. Essential hypertension (01/04/13). echo 2007 [facility]. uncontrolled BP (neg w/u for pheo). GERD (gastroesophageal reflux disease). Heart failure with reduced ejection fraction. NSTEMI (non-ST elevated myocardial infarction) (~05/2019). [facility] [place] Pedal edema. Type II diabetes mellitus with complication, uncontrolled (05/14/14). UTI (urinary tract infection). Surgical History . History of appendectomy PREVIOUS FUNCTIONAL STATUS/SOCIAL/FAMILY SUPPORTS:: Linda lives in [place] alone with her cat. She has four adult sons, three who live locally and one who lives in [place]. She identifies her son Caesar and his Letitia as her primary supports. They help her with her bills and drive her to all her doctor's appointments. Linda shares that Gloria helps her on Tuesday and . Gloria provides her transportation, takes her grocery shopping, meal preps and helps around the house. Her sister Drea lives locally. Linda is a Christianity and has numerous friends at her hinduism community. Linda makes not to this technical document writer that she does not want to receive blood products. CURRENT FUNCTIONAL STATUS:: Linda is reclined in her chair when CM met with her. She is alert, oriented and easy to engage in conversation. Linda shares with CM that she feels very supported in her home. Between Robert, Letitia and Gloria, she has plenty of help. Linda may be interested in a [facility] referral, and would like CM to discuss services with Robert or Letitia. ADVANCE DIRECTIVES:: On file, [facility] is Caesar Bautista Has patient been provided with info about the portal/API?: Yes Did the patient sign up for the portal?: Yes (Prior to admission) CODE STATUS:: DNR/DNI INSURANCE COVERAGE / FINANCIAL ISSUES:: Commercial-[employer]. Medicare CURRENT HOME/COMMUNITY SERVICES/EQUIPMENT:: Caregiver/Homemaker Tuesday and . [employer]. Katelyn Mcclain PRIMARY CARE PHYSICIAN:: [facility] POTENTIAL DISCHARGE NEEDS:: Evaluations for increased community support. Close community follow up. Discharge plan of care. PATIENT/FAMILY EDUCATION NEEDS:: Review discharge instructions, limitations, medications and plan to follow up with community providers. Discuss ask me three and goals of self care. TRANSPORTATION:: Via private vehicle with family. PLAN:: Anticipate, Linda will discharge home with new [facility] services (if indicated) when medically ready. She will transport home via private vehicle with family and follow up with her community providers. Linda may be interested in a referral to [facility], but would like to discuss it with her son Robert first.
[2022-03-03] MEDS: Normal Saline Flush 10 ML SYR IVP ×3 (11:37→19:20)
--- NOTE | 2022-03-03 11:51 | W.PM.PROGNOT ---
Date of Service Date of service: 03/03/22 Time of Service: 11:51 Assessment and Plan Assessment and plan (1) Elevated troponin: Status: Acute Assessment and plan: Patient has a history of TN and troponin #1 238 and troponin #2 230 # 3 219 No chest pain (2) Edema: Status: Chronic Assessment and plan: BNP 1862; Lasix 80 mg IVP was given in the ED. We will continue diuresing, supplement potassium (3) Chronic HFrEF (heart failure with reduced ejection fraction): Status: Chronic Assessment and plan: As above Patient had an EF of 30-35% on 03/17/2021. We will repeat the echocardiography. Consider adding spironolactone (4) Hypertension: Status: Chronic Assessment and plan: As above Qualifiers: Hypertension type: essential hypertension (5) CKD (chronic kidney disease), stage II: Status: Chronic (6) On deep vein thrombosis (DVT) prophylaxis: Status: Acute Assessment and plan: Warfarin - follow INR and adjust accordingly (7) Discharge planning issues: Status: Acute Assessment and plan: Home +/- HH discussed with Dr Sanchez Subjective Subjective Patient reports: no new complaints, tolerating a regular diet, voiding w/o difficulty, bowel movement and afebrile; denies diarrhea or vomiting Exam Narrative Exam Narrative: Patient is awake and alert and sitting in the chair in the patient room. She is in no acute distress. Const General: cooperative, comfortable and no acute distress Nutritional Appearance: obese and edematous (right lower > left lower extremity) HENMS Head: normal to inspection, normocephalic and atraumatic Eyes General: appearance normal, both eyes and all related structures Alignment and Position: alignment normal and position normal Sclera: sclerae normal Neck Neck: normal visual inspection, full ROM and no lymphadenopathy Chest Chest: normal inspection of the chest and rash (midline) Resp Effort & Inspection: normal respiratory effort, able to speak in complete sentences, no cough and not tachypneic Cardio Jugular venous pressure: no JVD Rate: abnormal rate Rhythm: abnormal rhythm (atrial-fibrillation) Heart Sounds: S1 normal, S2 normal and no murmurs Pulses: radial pulses present and dorsalis pedis present GI Inspection: normal to inspection Palpation: soft, no hepatosplenomegaly and nontender Auscultation: normal bowel sounds Skin Rashes: rashes noted (right panis and midline chest) Neuro General: patient alert, patient awake, patient oriented x3 and focal motor deficits present Cognition: normal cognition Speech: speech normal Gait: gait assisted Motor: strength 5/5 throughout (except for right upper extremity at 3/5 to resist.) Extrem Right upper extremity: normal to inspection and shoulder/upper arm Details: other (weakness) Right lower extremity: edema (2+) Details: pitting Left lower extremity: edema Details: non-pitting and 1+ Psych Speech and Movement: speech and movement normal Mood: congruent mood Affect: normal affect Objective Last Vital Signs Temp 36.9 C 03/03/22 11:28 Pulse 107 H 03/03/22 11:28 Resp 19 03/03/22 11:28 BP 119/69 03/03/22 11:28 Pulse Ox 96 03/03/22 11:28 Laboratory Results - last 24 hr 03/02/22 03/02/22 03/02/22 12:16 12:30 12:30 WBC 8.90 RBC 4.37 Hgb 13.3 Hct 39.7 MCV 91 MCH 30.4 MCHC 33.5 RDW 12.7 Plt Count 171 MPV 13.0 H Immature Gran % 0.2 Neutrophils % 70.3 Lymphocytes % 19.1 Monocytes % 8.8 Eosinophils % 1.0 Basophils % 0.6 Nucleated RBC % 0.0 Absolute Neutrophils 6.26 Absolute Lymphocytes 1.70 Absolute Monocytes 0.78 Absolute Eosinophils 0.09 Absolute Basophils 0.05 RBC Morphology PT INR Sodium 134 L Potassium 4.4 Chloride 95 L Carbon Dioxide 32.0 Anion Gap 7.0 BUN 38 H Creatinine 2.1 H Est GFR (CKD-EPI 2020) 22.52 Glucose 487 H Calcium 9.1 Magnesium 2.3 Total Bilirubin 0.3 AST 26 ALT 28 Alkaline Phosphatase 128 H Troponin I 238 H* NT-Pro-B Natriuret Pep Total Protein 7.6 Albumin 3.1 L TSH Cancelled 7.68 H Free T4 1.20 COVID-19 Source SARS-CoV-2 (PCR) 03/02/22 03/02/22 03/02/22 12:30 14:06 14:50 WBC RBC Hgb Hct MCV MCH MCHC RDW Plt Count MPV Immature Gran % Neutrophils % Lymphocytes % Monocytes % Eosinophils % Basophils % Nucleated RBC % Absolute Neutrophils Absolute Lymphocytes Absolute Monocytes Absolute Eosinophils Absolute Basophils RBC Morphology PT INR Sodium Potassium Chloride Carbon Dioxide Anion Gap BUN Creatinine Est GFR (CKD-EPI 2020) Glucose Calcium Magnesium Total Bilirubin AST ALT Alkaline Phosphatase Troponin I 230 H* NT-Pro-B Natriuret Pep 1862 H Total Protein Albumin TSH Free T4 COVID-19 Source Nasal/Nares SARS-CoV-2 (PCR) Negative 03/02/22 03/03/22 03/03/22 21:36 05:25 05:25 WBC RBC Hgb Hct MCV MCH MCHC RDW Plt Count MPV Immature Gran % Neutrophils % Lymphocytes % Monocytes % Eosinophils % Basophils % Nucleated RBC % Absolute Neutrophils Absolute Lymphocytes Absolute Monocytes Absolute Eosinophils Absolute Basophils RBC Morphology PT 19.5 H INR 2.0 H Sodium 139 Potassium 3.6 Chloride 99 Carbon Dioxide 32.9 H Anion Gap 7.1 BUN 40 H Creatinine 1.9 H Est GFR (CKD-EPI 2020) 25.40 Glucose 146 H Calcium 9.0 Magnesium 2.4 Total Bilirubin AST ALT Alkaline Phosphatase Troponin I 219 H* NT-Pro-B Natriuret Pep Total Protein Albumin TSH Free T4 COVID-19 Source SARS-CoV-2 (PCR) 03/03/22 05:25 WBC 8.19 RBC 4.19 Hgb 12.8 Hct 38.1 MCV 91 MCH 30.5 MCHC 33.6 RDW 12.9 Plt Count 157 MPV Immature Gran % 0.2 Neutrophils % 60.9 Lymphocytes % 26.3 Monocytes % 10.1 Eosinophils % 1.8 Basophils % 0.7 Nucleated RBC % 0.0 Absolute Neutrophils 4.98 Absolute Lymphocytes 2.15 Absolute Monocytes 0.83 H Absolute Eosinophils 0.15 Absolute Basophils 0.06 RBC Morphology Normal PT INR Sodium Potassium Chloride Carbon Dioxide Anion Gap BUN Creatinine Est GFR (CKD-EPI 2020) Glucose Calcium Magnesium Total Bilirubin AST ALT Alkaline Phosphatase Troponin I NT-Pro-B Natriuret Pep Total Protein Albumin TSH Free T4 COVID-19 Source SARS-CoV-2 (PCR)
[2022-03-03] MEDS: Polyethylene Glycol 3350 17 GM PACKET PO (19:20)
[2022-03-03] MEDS: Refresh PLUS Eye Drops 0.4ml 1 EACH OP (21:26)
[2022-03-04] VITALS (10 sets, daily range): BP systolic 101–161; BP diastolic 61–101; PULSE 68–135; RESP 18–20; TEMP 36.2–37.2; O2SAT 96–98
[2022-03-04 07:09] LABS: Abs Immature Grans 0.02 10^3/uL (0.0-0.06); Absolute Basophil Count 0.05 10^3/uL (0.0-0.2); Absolute Eosinophil Count 0.13 10^3/uL (0.0-0.7); Absolute Lymphocyte Count 1.95 10^3/uL (1.2-3.4); Absolute Monocyte Count 0.86 10^3/uL (0.1-0.8); Absolute Neutrophil Count 4.43 10^3/uL (1.2-6.7); Basophils % 0.7; Eosinophils % 1.7; HCT 39.8 % (36.0-46.0); HGB 13.3 g/dL (11.2-15.7); Immature Grans % 0.3; Lymphocytes % 26.2; MCHC 33.4 % (32.0-36.0); MCV 90 fL (80-95); Monocytes % 11.6; Neutrophils % 59.5; Platelet Count 167 10^3/uL (130-400); RBC 4.43 10^6/uL (3.93-5.22); RDW 12.9 % (11.7-14.6); RDW-SD 42.3 fL; WBC 7.44 10^3/uL (4.4-10.8)
[2022-03-04 07:10] LABS: MPV 13.4 fL (8.0-11.0)
[2022-03-04 07:21] LABS: INR 1.9 (0.9-1.1); Prothrombin Time 18.4 sec (9.3-11.0)
[2022-03-04 07:25] LABS: Anion Gap 6.7 mmol/L (3-11); BUN 48 mg/dL (7-18); CO2 32.3 mmol/L (21.0-32.0); CREATININE 2.1 mg/dL (0.55-1.02); Calcium 9.1 mg/dL (8.5-10.1); Chloride 95 mmol/L (98-107); Estimated GFR 22.52 (mL/min/1.73m2); Glucose 144 mg/dL (74-106); Magnesium 2.6 mg/dL (1.8-2.4); Potassium 3.7 mmol/L (3.5-5.1); Sodium 134 mmol/L (136-145)
--- NOTE | 2022-03-04 08:52 | CMPROGNOTE_ITS ---
- If Service Date Differs Date of service: 03/04/22 Time of Service: 08:52 Care Management Progress Note S/O: Linda is reclining in her chair, visiting with her friend when CM met with her. She is awake, alert, smiling and able to engage in conversation. She seems more hard of hearing today. PT recommends home with New [facility] PT services. Pt really has no new concerns. She is planning on discharging home when medically ready. She has a caregiver 2 days per week and a lot of support from her son. A: 87 year old female admitted to [facility] on 03/02/22 for CHF, Afib, RVR P: Anticipate, Linda will discharge home with new [facility] PT, when medically ready. She will transport home via private vehicle with family and follow up with her community providers. Palliative to follow.
--- NOTE | 2022-03-04 09:45 | RT.EKG_ITS ---
APPROVED REPORT Exam: Resting ECG Reason for Exam: NSTEMI Patient Location: I HR:86 bpm ECG Measurements Heart Rate 86 AXIS AR [id number] P [id number] QRSd 136 QRS -46 QT 393 T 239 QTc 470 Conclusion Atrial flutter with predominant 3:1 AV block...A-rate 263, multiple Ps Left bundle branch block...QRSd>120, broad/notched R
[2022-03-04] MEDS: Aspirin E.C. 81 MG TABEC PO (11:06)
[2022-03-04] MEDS: Valsartan 40 MG TAB PO (11:06)
[2022-03-04] MEDS: Metoprolol CR 100 MG TABCR 200 MG PO (11:06)
[2022-03-04] MEDS: Potassium Chloride 10 MEQ CAPCR PO (11:06)
[2022-03-04] MEDS: Docusate Sodium 100 MG CAP PO ×2 (11:06→19:43)
[2022-03-04] MEDS: dilTIAZem CD 120 MG CAPCR 240 MG PO (11:06)
[2022-03-04] MEDS: Normal Saline Flush 10 ML SYR IVP ×2 (11:07→19:43)
[2022-03-04] MEDS: Insulin Aspart 300 UNITS/3 ML PEN SC ×4 (11:44→19:59)
--- NOTE | 2022-03-04 12:38 | W.PALLCONSUL ---
Date of service: 03/04/22 Time of Service: 12:38 History of Present Illness Narrative: Linda was seen in her hospital room. She reports that she was having, fluid build-up at home. She saw cardiology last month and was found to be fluid overloaded. Dr. Swanson recommended hospitalization at that time but Linda declined. She states she had things to do at home but found that she was declining and eventually presented to the ED. She is SOB at baseline. She has to sit and recover after making her bed at home. She does not move around the house a lot due to SOB. She does not think she is back to her baseline yet. She does think she is nearing her baseline. She continues to have BLE edema, she states it is better then when she presented to the ED. Her ECHO during this hospitalization shows LVEF 36%. Her last ECHO was one year ago and showed LVEF 30-35%. She wants to stay in her home. She wants hospice when she qualifies. She has a caregiver that comes into her home 2 days per week. She was evaluated by PT. She was noted to be SOB with activity. She was able to ambulate with her walker. PT recommends home PT. Assessment and Plan Assessment and plan (1) Chronic HFrEF (heart failure with reduced ejection fraction): Status: Chronic (2) Edema: Status: Chronic (3) Weakness generalized: Status: Acute (4) CKD (chronic kidney disease), stage II: Status: Chronic (5) Fatigue: Status: Acute (6) Dyspnea: Status: Acute (7) Ambulatory dysfunction: Status: Acute (8) Chronic anticoagulation: Status: Chronic (9) Acute on chronic systolic heart failure: (10) ASCVD (arteriosclerotic cardiovascular disease): (11) Palliative care patient: Assessment and plan: Linda is a very pleasant 87 year old, currently admitted with acute on chronic CHF. She is being diuresed. She is not yet back to her baseline. She had an ECHO during this hospitalization which shows LVEF 36%. Her last ECHO was one year ago and showed LVEF 30-35%. She worked with PT, PT recommends home with services, including PT. She has a caregiver that comes into the home 2x/week. Her goal is to stay in her home. She wants hospice when she qualifies. She does not qualify for hospice yet. She has previously established that she is a DNR/DNI. Follow up with Palliative at home as scheduled, sooner as needed. Review of Systems Narrative: per HPI. [facility] All Active Problems (Updated 03/03/22 @ 17:49 by Janet Alejandro NP) Open wound of both lower extremities (Acute) Discharge planning issues (Acute) On deep vein thrombosis (DVT) prophylaxis (Acute) Morbid obesity (Acute) Edema (Chronic) right leg> left Weakness generalized (Acute) has not returned to baseline since stroke Atrial flutter (Acute) Elevated troponin (Acute) CKD (chronic kidney disease), stage II (Chronic) on cusp of stage 3 Fatigue (Acute) Dyspnea (Acute) 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) has hearing aids Goals of care, counseling/discussion (Acute) Ambulatory dysfunction (Acute) 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) Refusal of blood transfusions as patient is Lutheran (Acute) CHF (congestive heart failure) (Chronic) Hypertension (Chronic) Mild obstructive sleep apnea (Acute 11/17/15) [facility] Hyperlipidemia (Chronic) Chronic anticoagulation (Chronic) Medical History (Updated 03/03/22 @ 17:49 by Janet Alejandro NP) Acute CVA (cerebrovascular accident) Acute deep vein thrombosis (DVT) of right lower extremity Acute on chronic systolic heart failure All medications reviewed Arthritis ASCVD (arteriosclerotic cardiovascular disease) (04/22/15) [place] with out of hosp cardiac arrest LAD stent, LVEF 35% Atrial fibrillation (05/27/11) paroxysmal Oct 2009 Atrial fibrillation with rapid ventricular response Carpal tunnel syndrome on both sides s/p Left ECTR 01/30/2020 Chronic low back pain Complementary medicine Constipation Counseling on health promotion and disease prevention COVID-19 ruled out by clinical criteria Diabetes mellitus Diabetes mellitus out of control DNI (do not intubate) DNR (do not resuscitate) Eructation Essential hypertension (01/04/13) echo 2007 [facility] uncontrolled BP (neg w/u for pheo) Excessive vitamin intake her naturopathic remedies have many times more than COMMUNITY SPORTS COORDINATOR of vitamins Foot drop, left Fracture of head of right femur s/p R Anterior DARIEL (10/04/19) GERD (gastroesophageal reflux disease) Hearing loss Heart failure with reduced ejection fraction Hypertensive retinopathy Hyponatremia Impaired left ventricular function (~05/2019) [facility] [place] Insomnia Iron deficiency anemia Leg length discrepancy Lives alone Low back pain Lumbar stenosis Nail dystrophy Noncompliance with medication regimen (09/26/12) NSTEMI (non-ST elevated myocardial infarction) (~05/2019) [facility] [place] Pain in left thigh Palliative care patient 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 Pedal edema POLST (Physician Orders for Life-Sustaining Treatment) Polypharmacy takes both allopathic and naturopathic meds Postoperative anemia due to acute blood loss Prerenal azotemia Renal insufficiency Retinopathy, background, nonproliferative, mild (01/01/16) Right arm pain Right groin pain Right knee pain Right rotator cuff tear Spinal stenosis at L4-L5 level Tachycardia Tachycardia Type II diabetes mellitus with complication, uncontrolled (05/14/14) UTI (urinary tract infection) Vaccine counseling she thinks her 03/17 TIA/CVA was due COVID-19 vaccine Surgical History (Updated 03/03/22 @ 17:48 by Janet Alejandro NP) History of appendectomy History of carpal tunnel surgery of left wrist (01/30/20) History of right hip replacement Family History Brother Cancer Brother Cancer Leukemia Mother Asthma Sister Cancer Brother Dementia lives in SNF Son Prostate cancer Fall from ladder Son Paraplegic spinal paralysis motor vehicle crash Son No problems noted. Son No problems noted. 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 Pets and animals: Yes (one cat, Fancy) Pets and animals: cat(s) Current gender identity: female What is your relationship status?: How often do you talk on the phone with friends or family?: three or more times per week How often do you get together with friends or relatives?: three or more times per week How often do you attend jewish or anabaptist services?: 4 or more times per year Panel score (0-1 are the most socially isolated patients): 2 What type of physical activity do you participate in: assisted ambulation Duration: 15-30 minutes/day Frequency: does not exercise Faviola/Church: Lutheran Special faviola needs: Yes (no transfusion) Agree to transfusion: No Seatbelt use: always Drive intox or ride w/intox escort car 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 in 2001. Linda's family hires [employer] to help with housework mostly. Hip pain better since her surgery with Dr Stovall. Lately, her biggest health problems have been chronic dyspnea, low exercise tolerance. Would like to go outside more but NEEDS BIG WHEELED walker, suitable for outdoors walking. Not going outside. Exam Narrative Exam Narrative: General: very pleasant elderly female, sitting up in the recliner in her hospital room. She is awake, alert and oriented. HEENT: normocephalic, atraumatic, EOMI, mmm. Neck: supple. Cardiovascular: irregularly irregular. Tachycardic. Respiratory: respirations appear unlabored at rest. GI: +BS, abd soft, nondistended, nontender on palpation. Extremities: moves all 4 extremities, 2+ pitting edema to BLEs. Results Last Vital Signs Temp 36.2 C L 03/04/22 11:10 Pulse 103 H 03/04/22 11:10 Resp 20 03/04/22 11:10 BP 161/101 H 03/04/22 11:10 Pulse Ox 97 03/04/22 11:10 Labs Result diagrams: 03/04/22 06:25 03/04/22 06:25 Labs: Laboratory Results - last 24 hr 03/04/22 03/04/22 03/04/22 06:25 06:25 06:25 WBC 7.44 RBC 4.43 Hgb 13.3 Hct 39.8 MCV 90 MCH 30.0 MCHC 33.4 RDW 12.9 Plt Count 167 MPV 13.4 H Immature Gran % 0.3 Neutrophils % 59.5 Lymphocytes % 26.2 Monocytes % 11.6 Eosinophils % 1.7 Basophils % 0.7 Nucleated RBC % 0.0 Absolute Neutrophils 4.43 Absolute Lymphocytes 1.95 Absolute Monocytes 0.86 H Absolute Eosinophils 0.13 Absolute Basophils 0.05 PT 18.4 H INR 1.9 H Sodium 134 L Potassium 3.7 Chloride 95 L Carbon Dioxide 32.3 H Anion Gap 6.7 BUN 48 H Creatinine 2.1 H Est GFR (CKD-EPI 2020) 22.52 Glucose 144 H Calcium 9.1 Magnesium 2.6 H
--- NOTE | 2022-03-04 12:51 | IN_ITS ---
Date of service: 03/04/22 Time of Service: 12:51 PT Notes Visit Reasons: CHF,AFIB,RVR Physical Therapy Inpatient Initial Evaluation Date: 03/04/2022 Referring Doctor: Janet Alejandro NP PT Orders: PT CONSULT: D/C Non-PT Dependent Precautions: Fall. Standard.? Activity as tolerated. Patient Profile/Admitting Diagnosis: Linda is an 86-year-old female who presented to the ED on 03/02/2022 with complaints worsening dyspnea,? rapid heart rate, and increasing fatigue. She is admitted to medsurg unit for management of elevated troponin, AF< edema, chronic HFrEF, HTN, constipation, and DM. PMHX: All Active Problems?(Updated 03/02/22 @ 18:52 by Jordana Scruggs) Discharge planning issues (Acute) On deep vein thrombosis (DVT) prophylaxis (Acute) Nail dystrophy (Acute) Morbid obesity (Acute) Insomnia (Acute) Right arm pain (Acute) Polypharmacy (Chronic) takes both allopathic and naturopathic meds Edema (Chronic) r right leg> left Parietal lobe infarction (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Weakness generalized (Acute) has not returned to baseline since stroke Atrial flutter (Acute) Acute CVA (cerebrovascular accident) (Acute) Elevated troponin (Acute) Right rotator cuff tear (Acute) All medications reviewed (Acute) Excessive vitamin intake (Chronic) her naturopathic remedies have many times more than 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 CKD (chronic kidney disease), stage II (Chronic) on cusp of stage 3 Eructation (Acute) Tachycardia (Acute) Vaccine counseling (Acute) she thinks her 03/17 TIA/CVA was due COVID-19 vaccine Fatigue (Acute) Dyspnea (Acute) 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) has hearing aids Prerenal azotemia (Acute) Hearing loss (Acute) History of carpal tunnel surgery of left wrist (Acute 01/30/20) Lives alone (Chronic) Leg length discrepancy (Chronic) History of right hip replacement (Chronic) Pain in left thigh (Chronic) Goals of care, counseling/discussion (Acute) Ambulatory dysfunction (Acute) Hyponatremia (Chronic) 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) Iron deficiency anemia (Chronic) Postoperative anemia due to acute blood loss (Acute) Acute deep vein thrombosis (DVT) of right lower extremity (Acute) DNI (do not intubate) (Acute) DNR (do not resuscitate) (Acute) POLST (Physician Orders for Life-Sustaining Treatment) (Chronic) Refusal of blood transfusions as patient is Islam (Acute) Complementary medicine (Chronic) Palliative care patient (Chronic) Renal insufficiency (Chronic) Fracture of head of right femur (Chronic) s/p R Anterior DARIEL (10/04/19)Constipation (Acute) Chronic low back pain (Chronic) Impaired left ventricular function (Acute ~05/2019) [facility] [place]; 35%Right knee pain (Acute) Right groin pain (Acute) Tachycardia (Acute) CHF (congestive heart failure) (Chronic) Hypertensive retinopathy (Acute) Hypertension (Chronic) Retinopathy, background, nonproliferative, mild (Acute 01/01/16) Mild obstructive sleep apnea (Acute 11/17/15) [facility] Hyperlipidemia (Chronic) Atrial fibrillation (Chronic 05/27/11) paroxysmal Oct 2009 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 Acute on chronic systolic heart failure Arthritis Atrial fibrillation with rapid ventricular response COVID-19 ruled out by clinical criteria Diabetes mellitus Essential hypertension (01/04/13) echo 2007 LVH uncontrolled BP (neg w/u for pheo) GERD (gastroesophageal reflux disease) Heart failure with reduced ejection fraction NSTEMI (non-ST elevated myocardial infarction) (~05/2019) [facility] [place] Pedal edema Type II diabetes mellitus with complication, uncontrolled (05/14/14) UTI (urinary tract infection) Surgical History? History of appendectomy Social History/Home Situation: Linda lives alone in a private home with a ramp to enter. She was independent with a 4-wheeled walker for all mobility ADL performance.? Cooks her own meals.? A lady comes in twice a week for 3 hours each time to help with podiatric technician, laundry, grocery shopping and errands. Son comes in to check on her often and help as needed. Equipment Owned/DME: [employer] Subjective: Linda points out that although she feels a lot better and the swelling in her legs have decreased, she still feels weak and may need continued services at home. She states that that she has not fallen in the past 12 months. Objective: General Observation:? Telemetry monitoring in place.? Edema much more reduced. Mental Status: Alert and oriented x4 Pain: None reported ROM: Right Upper Extremity: ? Shoulder Flexion allows up to 100 degrees only due to chrconic pain. Shoulder abduction 90 degrees only due to chrconic pain. Elbow flexion WFL. Wrist flexion WFL. Functional opening and closing of hand WFL. Left Upper Extremity:? Shoulder Flexion WFL. Shoulder abduction WFL. Elbow flexion WFL. Wrist flexion WFL. Functional opening and closing of hand WFL. Right Lower Extremity: Hip flexion WFL. Hip abduction WFL. Knee flexion WFL. Ankle dorsiflexion WFL. Ankle plantarflexion WFL. Left Lower Extremity: Hip flexion WFL. Hip abduction WFL. Knee flexion WFL. Ankle dorsiflexion to neutral only. Ankle plantarflexion WFL. Strength: Right Upper Extremity: Shoulder flexors 3-/5. Shoulder abductors 3-/5. Elbow flexors 4-/5. Elbow extensors 4-/5. Interventional Radiology Rn weak but functional. Left Upper Extremity: Shoulder flexors 4-/5. Shoulder abductors 4-/5. Elbow flexors 4-/5. Elbow extensors 4-/5. Interventional Radiology Rn weak but functional. Right Lower Extremity: Hip flexors 4-/5. Hip abductors 4-/5. Knee flexors 4/5. Knee extensors 4-/5. Ankle dorsiflexors 4-/5. Ankle plantarflexors 4-/5. Left Lower Extremity: Hip flexors 4-/5. Hip abductors 4-/5. Knee flexors 4/5. Knee extensors 4-/5. Ankle dorsiflexors 3-/5. Ankle plantarflexors 4-/5. Sensation: Intact as to pain and pressure on bilateral lower extremities. Bed Mobility/Transfers: Sit to stand stand by assist Stand to sit stand by assist Gait: Linda tolerated level surface ambulation of 100 feet + 100 feet using her four-wheeled walker with FWB on BLE.? Increased stance time on the left side.? Chronic mild foot drop noted on the left.? Mild shortness of breath resolved af ter at least 3 minutes of rest. Denies headache, chest pain, and dizziness throughout ambulation activity. Balance: Static Sitting: Normal Dynamic Sitting: Normal Static Standing: Fair Dynamic Standing: Fair Special Tests: Mobility Limitations Standardized Measure [facility] AM-PAC 6 clicks Basic Mobility Inpatient Short Form: Raw Score: 23? CMS Score: 11% deficit? ? Informed Consent/Education: Patient was instructed in purpose of PT consult and plan of care. Agreeable to proceed with established PT POC to achieve personal goals. Assessment: Swelling in B legs now reduced compared to admission. Minimally short of breath after level surface ambulation using 4-wheeled walker, resolved with rest.?Linda demonstrates decreased activity tolerance, generalized weakness, and increased risk for falls due to admitting diagnoses and will benefit from physical therapy services to increase ability to return home when medically cleared by hospitalist. ? Patient presents with clinical signs and symptoms consistent with current/admitting diagnoses that have resulted to mobility limitations, gait instability, generalized weakness, and impairment of motor control as demonstrated by the following impairment level findings: 1.? Decreased strength to BLE major muscle groups 2.? Impaired standing balance 3.? Impaired activity tolerance Impairments are contributing to the following functional limitations: 1.? Inability to safely ambulate without assistive device 2.? Increase completion time for mobility ADL performance 3.? Increased fall risk Patient is assessed as a 63085 moderate complexity based on the following: History: 87-year-old female with impairment level findings, functional limitations, and past medical history as indicated above Examination: Demonstrable impairment in strength, balance, and mobility level with underlying impairments and functional limitations as documented above Presentation: Evolving Decision Makin moderate complexity Goals: Goals X1 week Goals X1 week 1. Supine-Sit independent 2. Sit-Supine independent 3. Sit-Stand independent 4. Stand-Sit independent 5. Bed-Chair independent 6. Chair-Bed independent 7. Independent gait on level surface with use of 4WW for at least 100 feet without report of pain nor dyspnea 8. Good static and dynamic standing balance/tolerance Plan of Care/Treatment Plan: 1-2x/day, 7 days/week x 1 week. Plan of care has been reviewed with the INTERVENTIONAL RADIOLOGY RN providing the service under Physical Therapy direction. Initiate Physical Therapy intervention for strengthening, bed mobility, transfers, gait, stairs, balance training, use of assistive device. DISCHARGE RECOMMENDATIONS: [] ? Home with no services [] [X] ? Home with services.? Home when medically cleared by hospitalist.? Patient will benefit from home health PT services in order to progress mobility level using least restrictive assistive ambulatory device, assess home safety, identify additional equipment needs, and establish a functional maintenance program that will increase ability of patient to remain at home.? Will benefit from occupational therapy services to assess safety of self-care and dressing needs. [] ? Home with outpatient PT [] [] ? SNF for continued rehabilitation [] [] ? [facility] [] [] ? SNF versus LTC based on ability to participate and progress [] TREATMENT CODE/TIME: 95152 x 27 minutes beginning at 12:51 PM. Thank you for the opportunity to participate in the care of this patient. Alix Hannah PT, DPT, CLT [facility] [place], [place]
[2022-03-04] MEDS: Nystatin POWDER 60 GM JAR TP ×2 (13:50→19:44)
--- NOTE | 2022-03-04 14:15 | RT.EKG_ITS ---
APPROVED REPORT Exam: Resting ECG Reason for Exam: rhytm change Patient Location: I HR:129 bpm ECG Measurements Heart Rate 129 [place] [id number] P [id number] QRSd 127 QRS -61 QT 359 T 110 QTc 526 Conclusion Atrial flutter with 2:1 AV block...A-rate 263, V-rate> 99 LVH with IVCD, LAD and secondary repol abnrm...multi-criteria, wQRSd, abnr ST-T Prolonged QT interval...QTc >500mS
--- NOTE | 2022-03-04 18:54 | W.PM.PROGNOT ---
Date of Service Date of service: 03/04/22 Time of Service: 18:54 Assessment and Plan Assessment and plan (1) Elevated troponin: Status: Acute Assessment and plan: Patient has a history of [place] and troponin #1 238 and troponin #2 230 # 3 219 No chest pain, no difficulty breathing, no oxygen requirement (2) Edema: Status: Chronic Assessment and plan: BNP 1862; Holding Lasix today s/t renal fxn (3) Chronic HFrEF (heart failure with reduced ejection fraction): Status: Chronic Assessment and plan: As above Patient had an EF of 40-45% on 05/07/2020. Echocardiography today LV normal, wall thickness is mildly increased. LV EF is 36 %. LV systolic fxn moderately decreased. Wall motion abnormalities in the RCA territory. Chest xray poor inspitation, no acute pulmonary process Consider adding spironolactone (4) Hypertension: Status: Chronic Assessment and plan: Stable, continue home meds Qualifiers: Hypertension type: essential hypertension (5) CKD (chronic kidney disease), stage II: Status: Chronic Assessment and plan: BUN 48 Creatinine 2.1 - hold Lasix - lungs are clear, BLE edema less (6) On deep vein thrombosis (DVT) prophylaxis: Status: Acute Assessment and plan: Warfarin - follow INR and adjust accordingly - pharmacy protocol (7) Discharge planning issues: Status: Acute Assessment and plan: Home +/- discussed with Dr Cruz Subjective Subjective Patient reports: no new complaints, feels better, tolerating a regular diet, voiding w/o difficulty and bowel movement; denies diarrhea, vomiting or shortness of breath Exam Narrative Exam Narrative: General: very pleasant elderly female, sitting up in the recliner in her hospital room. She is awake, alert and oriented. HEENT: normocephalic, atraumatic, EOMI, mmm. Neck: supple. Cardiovascular: irregularly irregular. Tachycardic. Respiratory: respirations appear unlabored at rest. GI: +BS, abd soft, nondistended, nontender on palpation. Extremities: moves all 4 extremities, 2+ pitting edema to BLEs. Objective Last Vital Signs Temp 36.9 C 03/04/22 15:16 Pulse 117 H 03/04/22 15:16 Resp 20 03/04/22 15:16 BP 101/63 03/04/22 15:16 Pulse Ox 96 03/04/22 15:16 Laboratory Results - last 24 hr 03/04/22 03/04/22 03/04/22 06:25 06:25 06:25 WBC 7.44 RBC 4.43 Hgb 13.3 Hct 39.8 MCV 90 MCH 30.0 MCHC 33.4 RDW 12.9 Plt Count 167 MPV 13.4 H Immature Gran % 0.3 Neutrophils % 59.5 Lymphocytes % 26.2 Monocytes % 11.6 Eosinophils % 1.7 Basophils % 0.7 Nucleated RBC % 0.0 Absolute Neutrophils 4.43 Absolute Lymphocytes 1.95 Absolute Monocytes 0.86 H Absolute Eosinophils 0.13 Absolute Basophils 0.05 PT 18.4 H INR 1.9 H Sodium 134 L Potassium 3.7 Chloride 95 L Carbon Dioxide 32.3 H Anion Gap 6.7 BUN 48 H Creatinine 2.1 H Est GFR (CKD-EPI 2020) 22.52 Glucose 144 H Calcium 9.1 Magnesium 2.6 H
[2022-03-04] MEDS: Warfarin 4 MG TAB PO (19:42)
[2022-03-04] MEDS: Refresh PLUS Eye Drops 0.4ml 1 EACH OP (19:44)
[2022-03-05] VITALS (12 sets, daily range): BP systolic 112–148; BP diastolic 65–84; PULSE 61–89; RESP 16–20; TEMP 35.9–37; O2SAT 93–98
[2022-03-05 07:01] LABS: Abs Immature Grans 0.04 10^3/uL (0.0-0.06); Absolute Basophil Count 0.04 10^3/uL (0.0-0.2); Absolute Eosinophil Count 0.07 10^3/uL (0.0-0.7); Absolute Lymphocyte Count 1.83 10^3/uL (1.2-3.4); Absolute Monocyte Count 0.71 10^3/uL (0.1-0.8); Absolute Neutrophil Count 5.91 10^3/uL (1.2-6.7); Basophils % 0.5; Eosinophils % 0.8; HCT 39.2 % (36.0-46.0); Immature Grans % 0.5; Lymphocytes % 21.3; MCH 30.6 pg (27.0-33.0); MCHC 33.2 % (32.0-36.0); MCV 92 fL (80-95); Monocytes % 8.3; Neutrophils % 68.6; RBC 4.25 10^6/uL (3.93-5.22); RDW 13.2 % (11.7-14.6); RDW-SD 44.2 fL
[2022-03-05 07:05] LABS: INR 2.4 (0.9-1.1); Prothrombin Time 22.5 sec (9.3-11.0)
[2022-03-05 07:14] LABS: Anion Gap 5.8 mmol/L (3-11); BUN 52 mg/dL (7-18); CO2 30.2 mmol/L (21.0-32.0); CREATININE 1.9 mg/dL (0.55-1.02); Calcium 8.5 mg/dL (8.5-10.1); Chloride 94 mmol/L (98-107); Glucose 269 mg/dL (74-106); Magnesium 2.8 mg/dL (1.8-2.4); Potassium 4.5 mmol/L (3.5-5.1); Sodium 130 mmol/L (136-145)
[2022-03-05] MEDS: Magnesium Oxide 400 MG TAB PO (08:42)
[2022-03-05] MEDS: Potassium Chloride 10 MEQ CAPCR PO (08:42)
[2022-03-05] MEDS: dilTIAZem CD 120 MG CAPCR 240 MG PO (08:42)
[2022-03-05] MEDS: Docusate Sodium 100 MG CAP PO ×2 (08:42→22:46)
[2022-03-05] MEDS: Valsartan 40 MG TAB PO (08:42)
[2022-03-05] MEDS: Metoprolol CR 100 MG TABCR 200 MG PO (08:42)
[2022-03-05] MEDS: Aspirin E.C. 81 MG TABEC PO (08:42)
[2022-03-05] MEDS: Insulin Aspart 300 UNITS/3 ML PEN SC ×5 (08:43→17:18)
[2022-03-05] MEDS: Nystatin POWDER 60 GM JAR TP ×2 (08:43→22:46)
[2022-03-05] MEDS: Milk of Magnesia 30 ML CUP PO (09:38)
--- NOTE | 2022-03-05 13:53 | PT.INTREAT ---
Date of service: 03/05/22 Time of Service: 11:34 PT Notes Visit Reasons: CHF,AFIB,RVR Inpatient Physical Therapy Treatment Note [facility] Date: 03/05/2022 PRECAUTIONS: Activity as tolerated SUBJECTIVE: Linda is pleasant and agreeable to participating in PT. She reports that she gets somewhat SOB at home, but feels that she paces herself appropriately. She reports that she feels back to her functional baseline. OBJECTIVE: PAIN: No c/o pain BED MOBILITY/TRANSFERS Sit-stand: I Stand-sit: I GAIT Assistive Device: 4WW Weight bearing: Full Assist: S Distance: 200' in a.m.; 200' in p.m. Deviation: SOB, antalgic gait THEREX: Patient was instructed in a LE strengthening program, completed while seated in her chair, to include: ankle pumps, LAQ, hip flexion and hip abduction. ASSESSMENT: Patient tolerated session well, with minimal SOB with gait training. She was able to tolerate a progression in gait distance with 4WW support and supervision. She demonstrates independence with transfers at this time. PLAN: Continue with gait training and general conditioning for improved activity tolerance. TREATMENT CODE/TIME: Session 1: 24 minutes; 04500, 81238 (11:34) Session 2: 15 minutes; 42993 (13:39)
--- NOTE | 2022-03-05 15:10 | CMPROGNOTE_ITS ---
- If Service Date Differs Date of service: 03/05/22 Time of Service: 15:10 Care Management Progress Note S/O: Linda is reclining in her chair playing on her iPad when CM met with her. She is awake, alert, happy and able to engage in conversation. She shares with CM that staff are taking very good care of her. PT recommends home with [facility] PT services. Pt really has no new concerns. She is planning on discharging home when medically ready. She has a caregiver 2 days per week and a lot of support from her son. A: 87 year old female admitted to [facility] on 03/02/22 for CHF, Afib, RVR P: Anticipate, Linda will discharge home with new [facility] PT, when medically ready. She will transport home via private vehicle with family and follow up with her community providers. Palliative to follow.
--- NOTE | 2022-03-05 16:04 | W.PM.PROGNOT ---
Date of Service Date of service: 03/05/22 Time of Service: 16:04 Assessment and Plan Assessment and plan (1) Elevated troponin: Status: Acute Assessment and plan: Patient has a history of [place] and elevated troponin, these remain flat No chest pain, no difficulty breathing, no oxygen requirement no acute st segment changes (2) Edema: Status: Chronic Assessment and plan: BNP 1862; resume diuresis, creatinine stable at baseline (3) Chronic HFrEF (heart failure with reduced ejection fraction): Status: Chronic Assessment and plan: As above Patient had an EF of 40-45% on 05/07/2020. Echocardiography showed LV normal, wall thickness is mildly increased. LV EF is 36 %. LV systolic fxn moderately decreased. Wall motion abnormalities in the RCA territory. Chest xray poor inspiration, no acute pulmonary process Consider adding spironolactone (4) Hypertension: Status: Chronic Assessment and plan: Stable, continue home meds Qualifiers: Hypertension type: essential hypertension (5) CKD (chronic kidney disease), stage II: Status: Chronic Assessment and plan: BUN 48 Creatinine 2.1 - hold Lasix - lungs are clear, BLE edema less (6) On deep vein thrombosis (DVT) prophylaxis: Status: Acute Assessment and plan: Warfarin - follow INR and adjust accordingly - pharmacy protocol (7) Discharge planning issues: Status: Acute Assessment and plan: Home +/- discussed with Dr Cruz Subjective Subjective Patient reports: no new complaints, feels better, tolerating liquids well, tolerating a regular diet and afebrile; denies shortness of breath Exam Const General: cooperative and no acute distress Orientation: alert, awake and oriented x3 HENMT Head: normal to inspection Mouth: oral mucosae normal Eyes General: appearance normal, both eyes and all related structures Eyelids: eyelids normal EOM: EOM intact bilaterally Neck Neck: normal visual inspection Chest Chest: normal inspection of the chest Resp Effort & Inspection: normal respiratory effort and able to speak in complete sentences Auscultation: clear to auscultation bilaterally Cardio Rhythm: abnormal rhythm irregularly irregular GI Inspection: normal to inspection Palpation: soft, no masses and nontender Auscultation: normal bowel sounds Skin General skin exam: no rashes or lesions noted Neuro General: patient alert and patient awake Cognition: normal cognition Speech: speech normal Gait: normal gait Motor: muscle tone normal throughout Extrem General: normal to inspection and full ROM Psych Appearance: grossly normal Mental Status: mental status grossly normal Speech and Movement: speech and movement normal Affect: normal affect Thought Process: normal Objective Last Vital Signs Temp 36.5 C 03/05/22 14:58 Pulse 71 03/05/22 15:10 Resp 18 03/05/22 14:58 BP 121/71 03/05/22 14:58 Pulse Ox 97 03/05/22 14:58 Laboratory Results - last 24 hr 03/05/22 03/05/22 03/05/22 06:10 06:10 06:10 WBC 8.60 RBC 4.25 Hgb 13.0 Hct 39.2 MCV 92 MCH 30.6 MCHC 33.2 RDW 13.2 Plt Count MPV Immature Gran % 0.5 Neutrophils % 68.6 Lymphocytes % 21.3 Monocytes % 8.3 Eosinophils % 0.8 Basophils % 0.5 Nucleated RBC % 0.0 Absolute Neutrophils 5.91 Absolute Lymphocytes 1.83 Absolute Monocytes 0.71 Absolute Eosinophils 0.07 Absolute Basophils 0.04 PT 22.5 H INR 2.4 H Sodium 130 L Potassium 4.5 Chloride 94 L Carbon Dioxide 30.2 Anion Gap 5.8 BUN 52 H Creatinine 1.9 H Est GFR (CKD-EPI 2020) 25.40 Glucose 269 H Calcium 8.5 Magnesium 2.8 H
--- NOTE | 2022-03-05 16:23 | CHAPLAIN ---
Linda was up in the chair, working on a jigsaw puzzle on her iPad when I visited. She said her cataracts make it more difficult to see the puzzle pieces. Linda was pleasant and engaged in a conversation. She told me that she is Buddhist and a member of the [employer] in [place], but thanked me for visiting.
[2022-03-05] MEDS: Refresh PLUS Eye Drops 0.4ml 1 EACH OP (22:46)
[2022-03-06 03:03] VITALS: BP 125/67; PULSE 88; RESP 19; TEMP 36.6; O2SAT 94
[2022-03-06 06:22] VITALS: BP 128/74; PULSE 53; RESP 16; TEMP 36.7; O2SAT 95
[2022-03-06 07:09] LABS: Abs Immature Grans 0.02 10^3/uL (0.0-0.06); Absolute Basophil Count 0.06 10^3/uL (0.0-0.2); Absolute Eosinophil Count 0.16 10^3/uL (0.0-0.7); Absolute Monocyte Count 0.88 10^3/uL (0.1-0.8); Absolute Neutrophil Count 4.21 10^3/uL (1.2-6.7); Basophils % 0.8; Eosinophils % 2.2; HCT 37.1 % (36.0-46.0); HGB 12.3 g/dL (11.2-15.7); Immature Grans % 0.3; Lymphocytes % 27.3; MCH 30.4 pg (27.0-33.0); MCHC 33.2 % (32.0-36.0); MCV 92 fL (80-95); MPV 13.4 fL (8.0-11.0); Neutrophils % 57.4; Platelet Count 150 10^3/uL (130-400); RBC 4.05 10^6/uL (3.93-5.22); RDW 13.2 % (11.7-14.6); RDW-SD 44.4 fL; WBC 7.33 10^3/uL (4.4-10.8)
[2022-03-06 07:26] LABS: INR 2.9 (0.9-1.1); Prothrombin Time 27.1 sec (9.3-11.0)
[2022-03-06 07:51] LABS: BUN 48 mg/dL (7-18); CREATININE 1.8 mg/dL (0.55-1.02); Calcium 8.4 mg/dL (8.5-10.1); Chloride 98 mmol/L (98-107); Glucose 210 mg/dL (74-106); Sodium 134 mmol/L (136-145)
[2022-03-06] MEDS: Insulin Aspart 300 UNITS/3 ML PEN SC ×4 (09:25→12:32)
[2022-03-06] MEDS: Metoprolol CR 100 MG TABCR 200 MG PO (09:26)
[2022-03-06] MEDS: Docusate Sodium 100 MG CAP PO (09:26)
[2022-03-06] MEDS: Valsartan 40 MG TAB PO (09:26)
[2022-03-06] MEDS: dilTIAZem CD 120 MG CAPCR 240 MG PO (09:26)
[2022-03-06] MEDS: Potassium Chloride 10 MEQ CAPCR PO (09:26)
[2022-03-06] MEDS: Nystatin POWDER 60 GM JAR TP (09:26)
[2022-03-06] MEDS: Torsemide 20 MG TAB 40 MG PO (09:27)
[2022-03-06] MEDS: Aspirin E.C. 81 MG TABEC PO (09:27)
--- NOTE | 2022-03-06 10:25 | PT.INTREAT ---
PT Notes Visit Reasons: CHF,AFIB,RVR Inpatient Physical Therapy Treatment Note [facility] Date: 03/06/22 PRECAUTIONS:Standard SUBJECTIVE: Pt reports she is ready to go home. OBJECTIVE: Sit-stand: SBA Stand-sit: SBA GAIT Assistive Device: 4WW Weight bearing: Full Assist: CGA Distance: 2 small loops with one seated rest in between. Pt had slight SOB. THEREX: Seated rowing x 10, UE circles x 10, LAQx 10, marching x 10 each, and HR/TR seated x 10. ASSESSMENT: Pt tolerated today's session well. Very pleasant and willing to participate in PT. PLAN: Cont as per PT POC. TREATMENT CODE/TIME: 10:-10:23 (23) MICHAEL CONLEY
--- NOTE | 2022-03-06 13:16 | W.PM.DS.N ---
Date of service: 03/06/22 Time of Service: 13:17 DS: Diagnosis Discharge Diagnosis (1) Elevated troponin: Status: Acute (2) Edema: Status: Chronic (3) Chronic HFrEF (heart failure with reduced ejection fraction): Status: Chronic (4) Hypertension: Status: Chronic (5) CKD (chronic kidney disease), stage II: Status: Chronic Discharge Plan Disposition Patient Disposition: Home W/Home Health Services Condition: Stable Discharge Details Reason For Visit: CHF,AFIB,RVR Admit Date/Time: 03/02/22 14:34 Admit Provider: Nitish Sanchez Attending Provider: Nitish Sanchez Primary Care Provider: Rad Yeh Hospital Course Hospital Course: This 87-year-old female with a history of morbid obesity, CVA, atrial flutter, increased troponin, dyspnea, fatigue, chronic anticoagulation presented to the ED with reports of worsening dyspnea on exertion and increased swelling to lower extremities. She denied any chest discomfort.? She was evaluated by her water resources business segment leader on 02/16/22 who recommended admission for diuresis but she refused at the time. On arrival she was more symptomatic and now agreeable to be admitted. She received 60 mg of IV furosemide with good effect and was admitted to med/surg for further diuresis. Her troponin level was found to be elevated in the 200's and remained flat. She had no reports of chest pain and no acute st segment changes so most likely type 2 due to tachycardia, heart failure and in setting of chronic kidney disease. Her symptoms improved with ongoing diuresis. She has remained hemodynamically stable and feels she is at her baseline. Her heart rate well controlled. she is safe for discharge to home and will resume home medication as previously directed. Her kidney function has remained stable. Her swelling and dyspnea improved. she is oxygenating well on room air, mid to high 90's. she is being discharged to home with home health for physical therapy evaluation and treatment. She should follow up with her outpatient water resources business segment leader for further medication adjustments as needed. discharge discussed with DR Otto. Home Meds and New Rx's Prescriptions: Continued nitroglycerin 0.4 mg tablet, sublingual 0.4 mg Sublingual Q 5 MIN PRN Qty: 15 4RF Label Comments: 11/06/18 Pt states she has not taken +1month. PG potassium chloride 10 mEq capsule, extended release 10 meq PO DAILY Qty: 90 3RF insulin degludec [Tresiba FlexTouch U-100] 100 unit/mL (3 mL) insulin pen 24 unit SC QHS Qty: 15 3RF Rx Instructions: Linda reduced her dose due to lower FBG ascorbic acid (vitamin C) 500 MG tablet 1,000 mg PO DAILY Hold Instructions: Patient reports getting her vitamin C from multivitamin. aspirin [Adult Low Dose Aspirin] 81 mg tablet,delayed release (DR/EC) 81 mg PO DAILY metoprolol succinate 200 mg tablet extended release 24 hr 200 mg PO DAILY Qty: 90 3RF Rx Instructions: prefers to take one tab torsemide 20 mg tablet 20 mg PO BID Qty: 180 3RF valsartan [Diovan] 40 mg tablet 40 mg PO DAILY Qty: 90 3RF diltiazem HCl 240 mg capsule,extended release 24 hr 240 mg PO DAILY Qty: 90 3RF (DME) pen needle, diabetic [BD Ultra-Fine Juliann Pen Needle] 32 gauge x 5/32 needle See Dose Instructions .ROUTE .MEDSUPPLY Qty: 100 3RF Dose Instruction: As directed Rx Instructions: inject once/day warfarin [Jantoven] 4 mg tablet 4 mg PO QPM Qty: 180 3RF Protocol: Dose Management Condition: Tuesday Dose/Route: 4 mg Instruction: 1 x 4 mg tablet Condition: Tuesday Dose/Route: 2 mg Instruction: 0.5 x 4 mg tablets Condition: Tuesday Dose/Route: 4 mg Instruction: 1 x 4 mg tablet Condition: Tuesday Dose/Route: 4 mg Instruction: 1 x 4 mg tablet Condition: Dose/Route: 4 mg Instruction: 1 x 4 mg tablet Condition: Tuesday Dose/Route: 2 mg Instruction: 0.5 x 4 mg tablets Condition: Tuesday Dose/Route: 4 mg Instruction: 1 x 4 mg tablet Protocol Text: Adjustment Start Date: Tuesday03/03/22 INR Value: 2.0 INR Date: 03/03/22 Recheck Date: 03/08/22 Rx Instructions: M, F 2mg All other days 4mg psyllium husk 0.52 gram Capsule 0.52 g PO QHS artifi.tears(hypromellose)(PF) 0.3 % Drops 1 drp OPHTHALMIC (EYE) HS docusate sodium [Colace] 100 mg Capsule 100 mg PO BID Qty: 60 0RF magnesium oxide 400 mg (241.3 mg magnesium) Tablet 400 mg PO DAILY Qty: 10 0RF Hold Instructions: Home Medication placed on hold at Doctor's office Discharge Instructions Instructions: Heart Failure (DC), A-fib (Atrial Fibrillation) (DC), High Troponin Levels (ED) Additional Instructions: resume usual medication as directed Stand Alone Forms: Nursing Discharge Form Referrals: Rad Yeh MD [Primary Care Provider] - (Please call Tuesday to make a follow up appointment.) Activity:: Activity as Tolerated Equipment/Supplies:: No Equipment Needed Diet:: As Tolerated Discharge Orders Discharge Orders: Discharge Order (Routine); Ordered 03/06/22 Ordered By: Marlin Block DS: Summary Time Spent with Patient providing and/or coordinating discharge services: Greater than 30 minutes Status at Discharge Functional status at discharge: independent ambulation Overall status at discharge: patient is progressing back to baseline Mental Status: mental status grossly normal Speech and Movement: speech and movement normal Mood: congruent mood Affect: normal affect Exam Const General: cooperative and no acute distress Orientation: alert, awake and oriented x3 HENMT Head: normal to inspection Mouth: oral mucosae normal Eyes General: appearance normal, both eyes and all related structures Eyelids: eyelids normal EOM: EOM intact bilaterally Neck Neck: normal visual inspection Chest Chest: normal inspection of the chest Resp Effort & Inspection: normal respiratory effort and able to speak in complete sentences Auscultation: clear to auscultation bilaterally Cardio Rhythm: abnormal rhythm irregularly irregular GI Inspection: normal to inspection Palpation: soft, no masses and nontender Auscultation: normal bowel sounds Skin General skin exam: no rashes or lesions noted Neuro General: patient alert and patient awake Cognition: normal cognition Speech: speech normal Gait: normal gait Motor: muscle tone normal throughout Extrem General: normal to inspection and full ROM Psych Appearance: grossly normal Mental Status: mental status grossly normal Speech and Movement: speech and movement normal Mood: congruent mood Affect: normal affect Thought Process: normal DS: Data Vitals/I&O Vitals and I&O: Vital Signs Temperature 36.7 C 03/06/22 06:22 Temperature Source Tympanic 03/06/22 06:22 Pulse 53 L 03/06/22 06:22 Pulse Rhythm Regular 03/06/22 03:50 Pulse 69 12/06/22 15:20 Respiratory Rate 16 03/06/22 06:22 Respiratory Effort 03/06/22 03:50 Respiratory Depth Normal 03/06/22 03:50 Respiratory Pattern Normal 03/06/22 03:50 Blood Pressure 128/74 03/06/22 06:22 Blood Pressure Mean 81 03/02/22 14:01 Blood Pressure Position Supine 03/02/22 12:08 Pulse Oximetry 95 03/06/22 06:22 Oxygen Delivery Method Room Air 03/06/22 06:22 Oxygen Flow Rate 0 03/06/22 06:22 Pain Level 0 03/06/22 09:23 Comment 03/06/22 09:23 Intake & Output 03/05/22 03/06/22 03/06/22 23:59 11:59 23:59 Intake Total 790 / 1150 720 / 720 Output Total 700 / 1300 775 / 775 Balance 90 / -150 -55 / -55 Weight 82.7 kg Intake: Oral 790 / 1150 720 / 720 Output: Urine 700 / 1300 775 / 775 Other: Urine Color Yellow Yellow Urine Appearance Clear Clear Urine Odor Normal Normal Comment toilet insert emptied Stool Size Moderate Stool Characteristics Soft Formed Voiding Methods Toilet Toilet Data Completed and Pending Labs on day of discharge: Labs from last 24 hours 03/06/22 03/06/22 03/06/22 06:40 06:20 06:20 WBC 7.33 RBC 4.05 Hgb 12.3 Hct 37.1 MCV 92 MCH 30.4 MCHC 33.2 RDW 13.2 Plt Count 150 MPV 13.4 H Immature Gran % 0.3 Neutrophils % 57.4 Lymphocytes % 27.3 Monocytes % 12.0 Eosinophils % 2.2 Basophils % 0.8 Nucleated RBC % 0.0 Absolute Neutrophils 4.21 Absolute Lymphocytes 2.00 Absolute Monocytes 0.88 H Absolute Eosinophils 0.16 Absolute Basophils 0.06 PT 27.1 H INR 2.9 H Sodium 134 L Potassium 4.0 Chloride 98 Carbon Dioxide 30.0 Anion Gap 6.0 BUN 48 H Creatinine 1.8 H Est GFR (CKD-EPI 2020) 27.10 Glucose 210 H Calcium 8.4 L Magnesium 3.0 H PFSH All Active Problems (Updated 03/03/22 @ 17:49 by Janet Alejandro NP) Open wound of both lower extremities (Acute) Discharge planning issues (Acute) On deep vein thrombosis (DVT) prophylaxis (Acute) Morbid obesity (Acute) Edema (Chronic) right leg> left Weakness generalized (Acute) has not returned to baseline since stroke Atrial flutter (Acute) Elevated troponin (Acute) CKD (chronic kidney disease), stage II (Chronic) on cusp of stage 3 Fatigue (Acute) Dyspnea (Acute) 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) has hearing aids Goals of care, counseling/discussion (Acute) Ambulatory dysfunction (Acute) 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) Refusal of blood transfusions as patient is Sikhism (Acute) CHF (congestive heart failure) (Chronic) Hypertension (Chronic) Mild obstructive sleep apnea (Acute 11/17/15) [facility] Hyperlipidemia (Chronic) Chronic anticoagulation (Chronic) Medical History (Updated 03/03/22 @ 17:49 by Janet Alejandro NP) Acute CVA (cerebrovascular accident) Acute deep vein thrombosis (DVT) of right lower extremity Acute on chronic systolic heart failure All medications reviewed Arthritis ASCVD (arteriosclerotic cardiovascular disease) (04/22/15) [place] with out of hosp cardiac arrest LAD stent, LVEF 35% Atrial fibrillation (05/27/11) paroxysmal Oct 2009 Atrial fibrillation with rapid ventricular response Carpal tunnel syndrome on both sides s/p Left ECTR 01/30/2020 Chronic low back pain Complementary medicine Constipation Counseling on health promotion and disease prevention COVID-19 ruled out by clinical criteria Diabetes mellitus Diabetes mellitus out of control DNI (do not intubate) DNR (do not resuscitate) Eructation Essential hypertension (01/04/13) echo 2007 LVH uncontrolled BP (neg w/u for pheo) Excessive vitamin intake her naturopathic remedies have many times more than TEASEL SETTER of vitamins Foot drop, left Fracture of head of right femur s/p R Anterior DARIEL (10/04/19) GERD (gastroesophageal reflux disease) Hearing loss Heart failure with reduced ejection fraction Hypertensive retinopathy Hyponatremia Impaired left ventricular function (~05/2019) [facility]; 35% Insomnia Iron deficiency anemia Leg length discrepancy Lives alone Low back pain Lumbar stenosis Nail dystrophy Noncompliance with medication regimen (09/26/12) NSTEMI (non-ST elevated myocardial infarction) (~05/2019) [facility] Pain in left thigh Palliative care patient 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 Pedal edema POLST (Physician Orders for Life-Sustaining Treatment) Polypharmacy takes both allopathic and naturopathic meds Postoperative anemia due to acute blood loss Prerenal azotemia Renal insufficiency Retinopathy, background, nonproliferative, mild (01/01/16) Right arm pain Right groin pain Right knee pain Right rotator cuff tear Spinal stenosis at L4-L5 level Tachycardia Tachycardia Type II diabetes mellitus with complication, uncontrolled (05/14/14) UTI (urinary tract infection) Vaccine counseling she thinks her 03/17 TIA/CVA was due COVID-19 vaccine Surgical History (Updated 03/03/22 @ 17:48 by Janet Alejandro NP) History of appendectomy History of carpal tunnel surgery of left wrist (01/30/20) History of right hip replacement Family History Brother Cancer Brother Cancer Leukemia Mother Asthma Sister Cancer Brother Dementia lives in SNF Son Prostate cancer Fall from ladder Son Paraplegic spinal paralysis motor vehicle crash Son No problems noted. Son No problems noted. 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 [employer] Pets and animals: Yes (one cat, Fancy) Pets and animals: cat(s) Current gender identity: female What is your relationship status?: How often do you talk on the phone with friends or family?: three or more times per week How often do you get together with friends or relatives?: three or more times per week How often do you attend scientology or pentecostal services?: 4 or more times per year Panel score (0-1 are the most socially isolated patients): 2 What type of physical activity do you participate in: assisted ambulation Duration: 15-30 minutes/day Frequency: does not exercise Faviola/Adventist: Sikhism Special faviola needs: Yes (no transfusion) Agree to transfusion: No Seatbelt use: always Drive intox or ride w/intox minibus 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 in 2001. Linda's family hires [employer] to help with housework mostly. Hip pain better since her surgery with Dr Stovall. Lately, her biggest health problems have been chronic dyspnea, low exercise tolerance. Would like to go outside more but NEEDS BIG WHEELED walker, suitable for outdoors walking. Not going outside.
--- NOTE | 2022-03-06 13:43 | PDOC.HHF2F ---
Home Health Referral Home Health Orders Clinical synopsis of why skilled professionals are needed: Patient will benefit from home health PT services in order to progress mobility level using least restrictive assistive ambulatory device, assess home safety, identify additional equipment needs, and establish a functional maintenance program that will increase ability of patient to remain at home.? Will benefit from occupational therapy services to assess safety of self-care and dressing needs. Medical diagnosis necessitation home health referral: congestive heart failure, elevated troponin, atrial fibrillation with rapid rate Physical Therapist: Check all that apply Increase strength & endurance for safe mobility at home: Ordered To design/establish home maintenance program: Ordered Home safety evaluation and teaching/gait training including stair management (if applicable): Ordered Occupational Therapist: Evaluate and treat for patient unable to perform ADL/IADL/self-care: Ordered Home Bound Status Requires the aid of supportive device (check all that apply): Walker Assistance of another person (Describe assistance and medical necessity): demonstrates decreased activity tolerance, generalized weakness, and increased risk for falls due to heart failure, leg edema and will benefit from physical and occupational therapy services Describe why leaving home would require a considerable and taxing effort: Requires frequent rest periods Encounter Date and Reason: I certify that a FTF encounter for this patient was performed on March 06, 2022 and that such encounter was related to the primary reason the patient requires home health services. The encounter was conducted in the following manner: By me as the certifying physician, WATER MANGLE TENDER, Certification And Authentication I certify that I composed the above information based on my clinical judgment relating to this patient's medical condition. Name of Provider that will be monitoring home health services: Rad Yeh
--- NOTE | 2022-03-06 16:10 | PDOC.CMDIS ---
- If Service Date Differs Date of service: 03/06/22 Time of Service: 16:10 LACE Index Scoring Tool - Questions: Length of Stay (in days): 4 - 6 Acuity (Admit via E.D.?): Yes Comorbidities: Cerebrovascular Disease, Diabetes w/o Complication, Congestive Heart Failure, Liver or Renal Disease E.D. Visits: 2 - Answers: Total Score: 14 Risk of Readmission: High Risk Care Management Discharge Reason for Hospitalization: CHF, Afib, RVR Discharge Plan: Linda will return home today with new orders for HH PT, OT. Her son will drive her home via private vehicle when ready. She will follow up with her PCP and discharge plan of care. She is happy to be going home. Patient/Family Education Needs: Review discharge instructions and limitations, discussion of self care needs including ask me three. Services Needed at Discharge: Home Health Care Services (HH PT, OT)
== END 2022-03-06 14:45 | disposition home health service (06) | DRG 308 ==
LOC: ER 15:16 → MS 15:53
PROVIDERS: Nurse Practitioner Acute Care; Nurse Practitioner Family; Admitting Provider Family Medicine; Emergency Provider Physician Assistant; PCP Family Medicine; Visit Provider Family Medicine
DX: I48.11 Longstanding persistent atrial fibrillation (principal); I50.23 Acute on chronic systolic (congestive) heart failure; E87.1 Hypo-osmolality and hyponatremia; I13.0 Hypertensive heart and chronic kidney disease with heart failure and stage 1 through stage 4 chronic kidney disease, or unspecified chronic kidney disease; R74.8 Abnormal levels of other serum enzymes; K59.00 Constipation, unspecified; E11.22 Type 2 diabetes mellitus with diabetic chronic kidney disease; Z86.73 Personal history of transient ischemic attack (TIA), and cerebral infarction without residual deficits; E66.01 Morbid (severe) obesity due to excess calories; Z68.35 Body mass index [BMI] 35.0-35.9, adult; Z79.01 Long term (current) use of anticoagulants; G47.00 Insomnia, unspecified; Z79.899 Other long term (current) drug therapy; I48.92 Unspecified atrial flutter; R26.89 Other abnormalities of gait and mobility; H90.3 Sensorineural hearing loss, bilateral; M21.70 Unequal limb length (acquired), unspecified site; H35.039 Hypertensive retinopathy, unspecified eye; E78.5 Hyperlipidemia, unspecified; I25.10 Atherosclerotic heart disease of native coronary artery without angina pectoris; M54.50 Low back pain, unspecified; I25.2 Old myocardial infarction; Z66 Do not resuscitate; Z79.4 Long term (current) use of insulin; N18.2 Chronic kidney disease, stage 2 (mild); G47.33 Obstructive sleep apnea (adult) (pediatric)
CPT/HCPCS: 36415; 80048; 80053; 87635; 93005; 96374; 96375; 97110; 97162; 97530; 99291; 71045; 83735; 83880; 84439; 84443; 84484; 85025; 85610; 93010; 93306; 99223; 99232; 99233; 99239; J1940

== ENCOUNTER 2022-03-26 17:11 | Emergency (ER) | payer MEDICARE, OTHER, SELFPAY ==
[2022-03-26] VITALS (37 sets, daily range): BP systolic 128–171; BP diastolic 75–144; PULSE 75–111; RESP 20; TEMP 37; O2SAT 94–99
--- NOTE | 2022-03-26 17:15 | RT.EKG_ITS ---
APPROVED REPORT Exam: Resting ECG Reason for Exam: tachycardia Patient Location: E HR:110 bpm ECG Measurements Heart Rate 110 AXIS SC [id number] P [id number] QRSd 129 QRS -67 QT 366 T 107 QTc 505 Conclusion Atrial flutter...A-rate 267 LVH with IVCD, LAD and secondary repol abnr ST-T
--- NOTE | 2022-03-26 17:54 | ED.GENADUL_ITS ---
Discharge Plan Disposition Patient Disposition: Home Condition: Stable Discharge Details Clinical Impression: Chest pain Primary Care Provider: Rad Yeh ED Provider: Aruna Villegas Home Meds and New Rx's Prescriptions: Continued nitroglycerin 0.4 mg tablet, sublingual 0.4 mg Sublingual Q 5 MIN PRN Qty: 15 4RF Label Comments: 11/06/18 Pt states she has not taken +1month. PG potassium chloride 10 mEq capsule, extended release 10 meq PO DAILY Qty: 90 3RF insulin degludec [Tresiba FlexTouch U-100] 100 unit/mL (3 mL) insulin pen 24 unit SC QHS Qty: 15 3RF Rx Instructions: Linda reduced her dose due to lower FBG ascorbic acid (vitamin C) 500 MG tablet 1,000 mg PO DAILY Hold Instructions: Patient reports getting her vitamin C from multivitamin. aspirin [Adult Low Dose Aspirin] 81 mg tablet,delayed release (DR/EC) 81 mg PO DAILY metoprolol succinate 200 mg tablet extended release 24 hr 200 mg PO DAILY Qty: 90 3RF Rx Instructions: prefers to take one tab torsemide 20 mg tablet 20 mg PO BID Qty: 180 3RF valsartan [Diovan] 40 mg tablet 40 mg PO DAILY Qty: 90 3RF diltiazem HCl 240 mg capsule,extended release 24 hr 240 mg PO DAILY Qty: 90 3RF (DME) pen needle, diabetic [BD Ultra-Fine Juliann Pen Needle] 32 gauge x 5/32 needle See Dose Instructions .ROUTE .MEDSUPPLY Qty: 100 3RF Dose Instruction: As directed Rx Instructions: inject once/day warfarin 2.5 mg tablet 2.5 mg PO QPM Qty: 30 3RF Protocol: Dose Management Condition: Tuesday Dose/Route: 4 mg Instruction: 2 x 2 mg tablets Condition: Tuesday Dose/Route: 2 mg Instruction: 1 x 2 mg tablet Condition: Tuesday Dose/Route: 2 mg Instruction: 1 x 2 mg tablet Condition: Tuesday Dose/Route: 4 mg Instruction: 2 x 2 mg tablets Condition: Dose/Route: 2 mg Instruction: 1 x 2 mg tablet Condition: Tuesday Dose/Route: 4 mg Instruction: 2 x 2 mg tablets Condition: Tuesday Dose/Route: 2 mg Instruction: 1 x 2 mg tablet Protocol Text: Adjustment Start Date: Tuesday03/23/22 INR Value: 2.0 INR Date: 03/22/22 Recheck Date: 03/30/22 warfarin 2 mg tablet 2 mg PO DAILY Protocol: Dose Management Condition: Tuesday Dose/Route: 4 mg Instruction: 2 x 2 mg tablets Condition: Tuesday Dose/Route: 2 mg Instruction: 1 x 2 mg tablet Condition: Tuesday Dose/Route: 2 mg Instruction: 1 x 2 mg tablet Condition: Tuesday Dose/Route: 4 mg Instruction: 2 x 2 mg tablets Condition: Dose/Route: 2 mg Instruction: 1 x 2 mg tablet Condition: Tuesday Dose/Route: 4 mg Instruction: 2 x 2 mg tablets Condition: Tuesday Dose/Route: 2 mg Instruction: 1 x 2 mg tablet Protocol Text: Adjustment Start Date: Tuesday03/23/22 INR Value: 2.0 INR Date: 03/22/22 Recheck Date: 03/30/22 psyllium husk 0.52 gram Capsule 0.52 g PO QHS artifi.tears(hypromellose)(PF) 0.3 % Drops 1 drp OPHTHALMIC (EYE) HS docusate sodium [Colace] 100 mg Capsule 100 mg PO BID Qty: 60 0RF magnesium oxide 400 mg (241.3 mg magnesium) Tablet 400 mg PO DAILY Qty: 10 0RF Hold Instructions: Home Medication placed on hold at Doctor's office Discharge Instructions Instructions: Chest Pain (ED) Additional Instructions: At this time your work-up is stable. Your labs appear at her baseline. No evidence of acute heart attack at this time. Please follow-up with your primary care provider early next week. Please return to the ER for any fever, vomiting, worsening chest pain, shortness of breath or worsening swelling in your lower extremities. Follow up with primary care provider in 3-5 days. Return to ED sooner if any worsening or concerns. Referrals: Rad Yeh MD [Primary Care Provider] - 1 week Medical Decision Making Work-up ordered including serial troponins, proBNP, PT PTT D-dimer. 2000: Patient having a hard time with getting obtaining blood from her and staff and IV access. Ultrasound-guided IV started in the left basilic vein, blood obtained sent to lab. Patient to use to be chest pain-free. CBC within normal limits, D-dimer 891 which is normal for age-adjusted D-dimer, sodium potassium within normal limits, BUN 44 creatinine 1.9 which is also patient's baseline glucose 275, initial troponin 224, proBNP is 1279 which is the best it ever been. Patient does have a history of elevated troponin in the 300s and 200s. Repeat troponin 213 which is largely at patient's baseline. Chest x-ray within normal limits. Patient has remained chest pain-free during the duration of her stay. At this time I do feel it is safe to be discharged home with close follow-up with PCP patient does have home health that comes into her house. Patient to be discharged to the care of her family. Medical Records Medical records reviewed: Yes I reviewed the patient's medical records. Lab Data Lab results reviewed: Yes I reviewed the patient's lab results. Labs: Laboratory Tests Range/Units 03/26/22 03/26/22 03/26/22 19:59 19:59 19:59 WBC (4.4-10.8) 10^3/uL 9.53 RBC (3.93-5.22) 10^6/uL 4.31 Hgb (11.2-15.7) g/dL 13.2 Hct (36.0-46.0) % 39.4 MCV (80-95) fL 91 MCH (27.0-33.0) pg 30.6 MCHC (32.0-36.0) % 33.5 RDW (11.7-14.6) % 12.9 Plt Count (130-400) 10^3/uL 179 MPV (8.0-11.0) fL 12.8 H Immature Gran % 0.3 Neutrophils % 63.1 Lymphocytes % 25.1 Monocytes % 9.3 Eosinophils % 1.5 Basophils % 0.7 Nucleated RBC % (0.0-0.3) % 0.0 Absolute Neutrophils (1.2-6.7) 10^3/uL 6.01 Absolute Lymphocytes (1.2-3.4) 10^3/uL 2.39 Absolute Monocytes (0.1-0.8) 10^3/uL 0.89 H Absolute Eosinophils (0.0-0.7) 10^3/uL 0.14 Absolute Basophils (0.0-0.2) 10^3/uL 0.07 PT (9.3-11.0) sec 17.3 H INR (0.9-1.1) 1.8 H D-Dimer (<500) ng/mlFEU 891 H Sodium (136-145) mmol/L 139 Potassium (3.5-5.1) mmol/L 4.2 Chloride (98-107) mmol/L 99 Carbon Dioxide (21.0-32.0) mmol/L 33.7 H Anion Gap (3-11) mmol/L 6.3 BUN (7-18) mg/dL 44 H Creatinine (0.55-1.02) mg/dL 1.9 H Est GFR (CKD-EPI 2020) (mL/min/1.73m2) 25.40 Glucose (74-106) mg/dL 275 H Calcium (8.5-10.1) mg/dL 9.2 Magnesium (1.8-2.4) mg/dL 2.3 Total Bilirubin (0.2-1.0) mg/dL 0.3 AST (15-37) U/L 22 ALT (14-59) U/L 22 Alkaline Phosphatase (46-116) U/L 102 Troponin I (<or=60) ng/L 224 H* NT-Pro-B Natriuret Pep (<300) pg/mL 1279 H Total Protein (6.4-8.2) g/dL 7.7 Albumin (3.4-5.0) g/dL 3.2 L Range/Units 03/26/22 22:49 WBC (4.4-10.8) 10^3/uL RBC (3.93-5.22) 10^6/uL Hgb (11.2-15.7) g/dL Hct (36.0-46.0) % MCV (80-95) fL MCH (27.0-33.0) pg MCHC (32.0-36.0) % RDW (11.7-14.6) % Plt Count (130-400) 10^3/uL MPV (8.0-11.0) fL Immature Gran % Neutrophils % Lymphocytes % Monocytes % Eosinophils % Basophils % Nucleated RBC % (0.0-0.3) % Absolute Neutrophils (1.2-6.7) 10^3/uL Absolute Lymphocytes (1.2-3.4) 10^3/uL Absolute Monocytes (0.1-0.8) 10^3/uL Absolute Eosinophils (0.0-0.7) 10^3/uL Absolute Basophils (0.0-0.2) 10^3/uL PT (9.3-11.0) sec INR (0.9-1.1) D-Dimer (<500) ng/mlFEU Sodium (136-145) mmol/L Potassium (3.5-5.1) mmol/L Chloride (98-107) mmol/L Carbon Dioxide (21.0-32.0) mmol/L Anion Gap (3-11) mmol/L BUN (7-18) mg/dL Creatinine (0.55-1.02) mg/dL Est GFR (CKD-EPI 2020) (mL/min/1.73m2) Glucose (74-106) mg/dL Calcium (8.5-10.1) mg/dL Magnesium (1.8-2.4) mg/dL Total Bilirubin (0.2-1.0) mg/dL AST (15-37) U/L ALT (14-59) U/L Alkaline Phosphatase (46-116) U/L Troponin I (<or=60) ng/L 213 H* NT-Pro-B Natriuret Pep (<300) pg/mL Total Protein (6.4-8.2) g/dL Albumin (3.4-5.0) g/dL HPI General Mode of arrival: wheelchair . Date/Time Provider Initiated Documentation: 03/26/22 17:25 . Limitations to Documentation: no limitations and physical limitation (Hard of Hearing) . Information obtained by: patient, RN notes reviewed and old records reviewed . HPI Narrative: 87-year-old female with past medical history of CHF, hyperlipidemia, hypertension, chronic heart failure, chronic kidney disease stage II, atrial flutter morbid obesity presents to the ER with chief complaint of chest pain over the last 2 days, increased heart rate and shortness of breath. Upon arrival she is chest pain-free. She did take nitroglycerin yesterday. She did not need to take any nitroglycerin today. She does take 20 mg torsemide, warfarin, metoprolol 200 mg and diltiazem 240 mg. She reports that she did take her daily a.m. medications today. Related Data Home Medications Medication Instructions Recorded Confirmed ascorbic acid (vitamin C) 500 mg 1,000 mg PO DAILY 07/15/12 03/26/22 tablet aspirin 81 mg tablet,delayed 81 mg PO DAILY 06/20/19 03/26/22 release (Adult Low Dose Aspirin) docusate sodium 100 mg capsule 100 mg PO BID #60 caps 10/14/19 03/26/22 (Colace) magnesium oxide 400 mg (241.3 mg 400 mg PO DAILY #10 tabs 10/14/19 03/26/22 magnesium) tablet metoprolol succinate 200 mg 200 mg PO DAILY #90 tabs 05/20/21 03/26/22 tablet,extended release 24 hr torsemide 20 mg tablet 20 mg PO BID #180 tabs 05/20/21 03/26/22 valsartan 40 mg tablet (Diovan) 40 mg PO DAILY #90 tabs 05/20/21 03/26/22 nitroglycerin 0.4 mg sublingual 0.4 mg sublingual Q 5 MIN PRN #15 06/10/21 03/26/22 tablet tab-caps diltiazem HCl 240 mg capsule,24 240 mg PO DAILY #90 caps 07/06/21 03/26/22 hr,extended release pen needle, diabetic 32 gauge x #100 ea 09/04/21 03/26/22 5/32 (BD Ultra-Fine Juliann Pen Needle) insulin degludec 100 unit/mL (3 24 unit (0.24 mL) subcut QHS #15 mL 09/22/21 03/26/22 mL) subcutaneous pen (Tresiba FlexTouch U-100 insulin) potassium chloride 10 mEq 10 meq PO DAILY #90 caps 12/17/21 03/26/22 capsule,extended release artifi.tears(hypromellose)(PF) 0.3 1 drp ophthalmic (eye) HS 03/02/22 03/26/22 % eye drops psyllium husk 0.52 gram capsule 0.52 g PO QHS 03/02/22 03/26/22 warfarin 2 mg tablet 2 mg PO DAILY 03/15/22 03/26/22 warfarin 2.5 mg tablet 2.5 mg PO QPM #30 tabs 03/15/22 03/26/22 Previous Rx's Medication Instructions Recorded docusate sodium 100 mg capsule 100 mg PO BID #60 caps 10/14/19 (Colace) magnesium oxide 400 mg (241.3 mg 400 mg PO DAILY #10 tabs 10/14/19 magnesium) tablet metoprolol succinate 200 mg 200 mg PO DAILY #90 tabs 05/20/21 tablet,extended release 24 hr torsemide 20 mg tablet 20 mg PO BID #180 tabs 05/20/21 valsartan 40 mg tablet (Diovan) 40 mg PO DAILY #90 tabs 05/20/21 nitroglycerin 0.4 mg sublingual 0.4 mg sublingual Q 5 MIN PRN #15 06/10/21 tablet tab-caps diltiazem HCl 240 mg capsule,24 240 mg PO DAILY #90 caps 07/06/21 hr,extended release pen needle, diabetic 32 gauge x #100 ea 09/04/21 (BD Ultra-Fine Juliann Pen Needle) insulin degludec 100 unit/mL (3 24 unit (0.24 mL) subcut QHS #15 mL 09/22/21 mL) subcutaneous pen (Tresiba FlexTouch U-100 insulin) potassium chloride 10 mEq 10 meq PO DAILY #90 caps 12/17/21 capsule,extended release warfarin 2.5 mg tablet 2.5 mg PO QPM #30 tabs 03/15/22 Allergies Allergy/AdvReac Type Severity Reaction Status Date / Time Tetanus Vaccines and Toxoid Allergy Intermediate Verified 03/26/22 17:22 doxycycline AdvReac Severe GI UPSET Verified 03/26/22 17:22 verapamil AdvReac Severe dizziness Verified 03/26/22 17:22 doxazosin mesylate AdvReac Intermediate muscle Verified 03/26/22 17:22 [From Cardura] aches atenolol AdvReac Mild leg pain Verified 03/26/22 17:22 General Stated Complaint: Chest Pain GELA: 3 Review of Systems All systems reviewed & are unremarkable except as noted in HPI and below Cardiovascular Cardiovascular: Reports chest pain at rest, Reports rapid heart rate and Reports dyspnea Respiratory Respiratory: Reports dyspnea PFSH All Active Problems (Updated 03/26/22 @ 23:23 by Aruna Villegas NP) Chest pain (Acute) Open wound of both lower extremities (Acute) Morbid obesity (Acute) Edema (Chronic) right leg> left Weakness generalized (Acute) has not returned to baseline since stroke Atrial flutter (Acute) Elevated troponin (Acute) CKD (chronic kidney disease), stage II (Chronic) on cusp of stage 3 Fatigue (Acute) Dyspnea (Acute) 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) has hearing aids Goals of care, counseling/discussion (Acute) Ambulatory dysfunction (Acute) 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) Refusal of blood transfusions as patient is Buddhism (Acute) CHF (congestive heart failure) (Chronic) Hypertension (Chronic) Mild obstructive sleep apnea (Acute 11/17/15) [facility] Hyperlipidemia (Chronic) Chronic anticoagulation (Chronic) Medical History Acute CVA (cerebrovascular accident) Acute deep vein thrombosis (DVT) of right lower extremity Acute on chronic systolic heart failure All medications reviewed Arthritis ASCVD (arteriosclerotic cardiovascular disease) (04/22/15) [place] with out of hosp cardiac arrest LAD stent, LVEF 35% Atrial fibrillation (05/27/11) paroxysmal Oct 2009 Atrial fibrillation with rapid ventricular response Carpal tunnel syndrome on both sides s/p Left ECTR 01/30/2020 Chronic low back pain Complementary medicine Constipation Counseling on health promotion and disease prevention COVID-19 ruled out by clinical criteria Diabetes mellitus Diabetes mellitus out of control DNI (do not intubate) DNR (do not resuscitate) Eructation Essential hypertension (01/04/13) echo 2007 LVH uncontrolled BP (neg w/u for pheo) Excessive vitamin intake her naturopathic remedies have many times more than [employer]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 of 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 Foot drop, left Fracture of head of right femur s/p R Anterior DARIEL (10/04/19) GERD (gastroesophageal reflux disease) Hearing loss Heart failure with reduced ejection fraction Hypertensive retinopathy Hyponatremia Impaired left ventricular function (~05/2019) [facility] 35% Insomnia Iron deficiency anemia Leg length discrepancy Lives alone Low back pain Lumbar stenosis Nail dystrophy Noncompliance with medication regimen (09/26/12) NSTEMI (non-ST elevated myocardial infarction) (~05/2019) [facility] Pain in left thigh Palliative care patient 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 Pedal edema POLST (Physician Orders for Life-Sustaining Treatment) Polypharmacy takes both allopathic and naturopathic meds Postoperative anemia due to acute blood loss Prerenal azotemia Renal insufficiency Retinopathy, background, nonproliferative, mild (01/01/16) Right arm pain Right groin pain Right knee pain Right rotator cuff tear Spinal stenosis at L4-L5 level Tachycardia Tachycardia Type II diabetes mellitus with complication, uncontrolled (05/14/14) UTI (urinary tract infection) Vaccine counseling she thinks her 03/17 TIA/CVA was due COVID-19 vaccine Surgical History History of appendectomy History of carpal tunnel surgery of left wrist (01/30/20) History of right hip replacement Family History Brother Cancer Brother Cancer Leukemia Mother Asthma Sister Cancer Brother Dementia lives in SNF Son Prostate cancer Fall from ladder Son Paraplegic spinal paralysis motor vehicle crash Son No problems noted. Son No problems noted. 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 [employer] Pets and animals: Yes (one cat, Fancy) Pets and animals: cat(s) Current gender identity: female What is your relationship status?: How often do you talk on the phone with friends or family?: three or more times per week How often do you get together with friends or relatives?: three or more times per week How often do you attend restoration or taoist services?: 4 or more times per year Panel score (0-1 are the most socially isolated patients): 2 What type of physical activity do you participate in: assisted ambulation Duration: 15-30 minutes/day Frequency: does not exercise Faviola/Roman Catholic: Buddhism Special faviola needs: Yes (no transfusion) Agree to transfusion: No Seatbelt use: always Drive intox or ride w/intox residential 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 in 2001. Linda's family hires [employer] to help with housework mostly. Hip pain better since her surgery with Dr Stovall. Lately, her biggest health problems have been chronic dyspnea, low exercise tolerance. Would like to go outside more but NEEDS BIG WHEELED walker, suitable for outdoors walking. Not going outside. Exam Narrative Exam Narrative: Constitutional: Alert and oriented x3. Appears stated age. body habitus. Head: Normocephalic, no trauma. Eyes: Pupils PERRL, Red reflex noted, EOM's intact. Eyelids symmetrical without lesions, discharge, or swelling. ENT: Bilateral TM's WNL, External ear normal to inspection, no mastoid TTP, swelling, or erythema, Nasal turbinates WNL, no nasal discharge. Normal dentition, Posterior pharynx WNL, no exudate. Chest: Tachycardia rate of 111, normal S1, S2, distal pulses intact. Resp: Lungs diminished to auscultation bilaterally, no wheezes, rales, or rhonchi. Abdomen: Soft, non-distended, Normoactive bowel sounds all 4 quads. Musculoskeletal: Unable to assess gait, 5/5 strength to all four extremities. 2+ pitting edema, is at patient's baseline. Skin: No suspicious rashes or lesions. Capillary refill less than 2 sec. Neurologic: Cranial nerves II-XII intact. Alert and oriented x 3. Motor: No deficits noted. Sensory: Intact bilaterally all 4 extremities. Reflexes: DTR's intact bilaterally.. Hematologic/Lymphatic: No ecchymosis, no lymphadenopathy. Course Vital Signs Vital signs: Vital Signs Temperature 37.0 C 03/26/22 17:17 Pulse 111 H 03/26/22 17:17 Respiratory Rate 20 03/26/22 17:17 Blood Pressure 151/101 H 03/26/22 17:17 Pulse Oximetry 97 03/26/22 17:17 Temperature 37.0 C 03/26/22 17:17 Temperature Source Temporal Artery Scan 03/26/22 17:17 Pulse 111 H 03/26/22 17:17 Respiratory Rate 20 03/26/22 17:17 Respiratory Effort 03/26/22 17:23 Blood Pressure 151/101 H 03/26/22 17:17 Blood Pressure Position Sitting 03/26/22 17:17 Pulse Oximetry 97 03/26/22 17:17 Oxygen Delivery Method Room Air 03/26/22 17:17 Oxygen Flow Rate 0 03/26/22 17:17 Procedures EJ/Peripheral Line Arm L: Time Out Performed: Yes Skin Cleansed in Sterile Fashion: Yes Size (gauge): 20 IV Secured and Dressing Applied: Yes Patient Tolerated Procedure: well Additional Comments: US guided IV PAWSS Have you Been Recently Intoxicated or Drunk Within the Last 30 days?: No Have you Ever Experienced Previous Episodes of Alcohol Withdrawal?: No Have you ever Experienced Withdrawal Seizures?: No Have you ever Experienced Delirium Tremens(DT)s?: No Have you ever undergone Alcohol Rehabilitation Treatment (i.e, inpt ot outpatient treatment programs)?: No Have you ever Experienced Blackouts?: No Have you ever Combined Alcohol with other Downers within the last 90 days?: No Have you ever Combined Alcohol with any other Substance of Abuse during the last 90 days?: No Positive Blood Alcohol level on Presentation? [PCS.BAL]: No Evidence of Increased Autonomic Activity (i.e. HR>120, tremor, sweating, agitation, nausea)?: No Result: 0
--- NOTE | 2022-03-26 18:30 | DI.RAD_ITS ---
Exam(s) XR PORTABLE CHEST AP EXAM: XR PORTABLE CHEST AP CLINICAL HISTORY: Chest Pain TECHNIQUE: 2D digital imaging was performed. COMPARISON: CR XR PORTABLE CHEST AP from 03/02/2022 FINDINGS: Leads overlie the chest. LUNGS: Clear. No pleural abnormality seen. HEART: Normal size. Coronary artery stents. AORTA: Normal diameter. BONES: Unremarkable for age. Soft tissues: Unremarkable. IMPRESSION: No acute findings. DATA REPOSITORY: RADIATION DOSE DELIVERED:
--- NOTE | 2022-03-26 19:07 | DI.VRAD_ITS ---
PROCEDURE INFORMATION: Exam: XR Chest Exam date and time: 03/26/2022 6:25 PM Age: 87 years old Clinical indication: Other: Chest pain TECHNIQUE: Imaging protocol: Radiologic exam of the chest. Views: 1 view. COMPARISON: CR XR PORTABLE CHEST AP 03/02/2022 1:15 PM FINDINGS: Lungs: Clear lungs. No consolidation or edema. Pleural spaces: No pleural effusion. Heart/Mediastinum: Normal heart size and mediastinal contour. Left coronary artery endovascular stents suggested. Bones/joints: Thoracic spine degenerative changes. IMPRESSION: 1. Clear lungs and pleural space. 2. Normal heart size and mediastinal contour. Suggestion of left-sided coronary artery stent. 3. Degenerative thoracic spine features Dictated and Authenticated by: Shyam Dudley MD. Ordering:CARL Valdovinos MD
[2022-03-26 20:06] LABS: Abs Immature Grans 0.03 10^3/uL (0.0-0.06); Absolute Basophil Count 0.07 10^3/uL (0.0-0.2); Absolute Eosinophil Count 0.14 10^3/uL (0.0-0.7); Absolute Lymphocyte Count 2.39 10^3/uL (1.2-3.4); Absolute Monocyte Count 0.89 10^3/uL (0.1-0.8); Absolute Neutrophil Count 6.01 10^3/uL (1.2-6.7); Basophils % 0.7; Eosinophils % 1.5; HCT 39.4 % (36.0-46.0); HGB 13.2 g/dL (11.2-15.7); Immature Grans % 0.3; Lymphocytes % 25.1; MCH 30.6 pg (27.0-33.0); MCHC 33.5 % (32.0-36.0); MCV 91 fL (80-95); MPV 12.8 fL (8.0-11.0); Monocytes % 9.3; Neutrophils % 63.1; Platelet Count 179 10^3/uL (130-400); RBC 4.31 10^6/uL (3.93-5.22); RDW 12.9 % (11.7-14.6); RDW-SD 43.7 fL; WBC 9.53 10^3/uL (4.4-10.8)
[2022-03-26 20:21] LABS: INR 1.8 (0.9-1.1); Prothrombin Time 17.3 sec (9.3-11.0)
[2022-03-26 20:28] LABS: ALT 22 U/L (14-59); AST 22 U/L (15-37); Albumin 3.2 g/dL (3.4-5.0); Alkaline Phosphatase 102 U/L (46-116); Anion Gap 6.3 mmol/L (3-11); BUN 44 mg/dL (7-18); Bilirubin, Total 0.3 mg/dL (0.2-1.0); CO2 33.7 mmol/L (21.0-32.0); CREATININE 1.9 mg/dL (0.55-1.02); Calcium 9.2 mg/dL (8.5-10.1); Chloride 99 mmol/L (98-107); Glucose 275 mg/dL (74-106); Magnesium 2.3 mg/dL (1.8-2.4); NT-proBNP 1279 pg/mL (<300); Potassium 4.2 mmol/L (3.5-5.1); Sodium 139 mmol/L (136-145); Total Protein 7.7 g/dL (6.4-8.2)
[2022-03-26 20:34] LABS: Troponin I 224 ng/L (<or=60)
[2022-03-26 20:42] LABS: D-Dimer 891 ng/mlFEU (<500)
--- NOTE | 2022-03-26 22:30 | RT.EKG_ITS ---
APPROVED REPORT Exam: Resting ECG Reason for Exam: chest pain Patient Location: E HR:87 bpm ECG Measurements Heart Rate 87 AXIS MA [id number] P [id number] QRSd 136 QRS -46 QT 393 T 194 QTc 472 Conclusion Atrial flutter with predominant 3:1 AV block. Nonspecific IVCD with LAD. LVH with secondary repolarization abnormality.
[2022-03-26 23:14] LABS: Troponin I 213 ng/L (<or=60)
== END 2022-03-26 23:41 | disposition home or self-care (01) ==
PROVIDERS: Emergency Provider Registered Nurse Emergency; PCP Family Medicine
DX: R07.9 Chest pain, unspecified (principal); I13.0 Hypertensive heart and chronic kidney disease with heart failure and stage 1 through stage 4 chronic kidney disease, or unspecified chronic kidney disease; E11.22 Type 2 diabetes mellitus with diabetic chronic kidney disease; I50.20 Unspecified systolic (congestive) heart failure; N18.2 Chronic kidney disease, stage 2 (mild); I48.92 Unspecified atrial flutter; R77.8 Other specified abnormalities of plasma proteins; E66.01 Morbid (severe) obesity due to excess calories; I48.91 Unspecified atrial fibrillation; I25.2 Old myocardial infarction; Z79.82 Long term (current) use of aspirin; Z79.4 Long term (current) use of insulin; Z79.01 Long term (current) use of anticoagulants; Z86.73 Personal history of transient ischemic attack (TIA), and cerebral infarction without residual deficits
CPT/HCPCS: 36415; 36573; 80053; 93005; 99283; 71045; 83735; 83880; 84484; 85025; 85379; 85610; 93010; 99285

== ENCOUNTER 2022-04-06 17:23 | Emergency (ER) | payer MEDICARE, OTHER, SELFPAY ==
[2022-04-06] VITALS (43 sets, daily range): BP systolic 93–157; BP diastolic 54–108; PULSE 65–109; RESP 11–33; TEMP 37; O2SAT 91–98
--- NOTE | 2022-04-06 18:15 | DI.RAD_ITS ---
Exam(s) XR CHEST 2V PA LATERAL EXAM: XR CHEST 2V PA LATERAL CLINICAL HISTORY: chf TECHNIQUE: 2D digital imaging was performed. COMPARISON: CR,XR XR PORTABLE CHEST AP from 03/26/2022 FINDINGS: HEART: Mildly enlarged. Coronary artery stents. Mitral valve calcification. Aorta: Not dilated. PULMONARY VASCULATURE: Normal. LUNGS: Mild underlying fibrotic changes. PLEURAL SPACE: No pleural effusion or pneumothorax. BONE:Unremarkable for age. IMPRESSION: No acute abnormality. DATA REPOSITORY: RADIATION DOSE DELIVERED:
--- NOTE | 2022-04-06 18:15 | RT.EKG_ITS ---
APPROVED REPORT Exam: Resting ECG Reason for Exam: chf Patient Location: E HR:80 bpm ECG Measurements Heart Rate 80 AXIS CO [id number] P [id number] QRSd 137 QRS -47 QT 400 T -87 QTc 486 Conclusion Atrial flutter with predominant 3:1 AV block...A-rate 258, multiple Ps Ventricular premature complex...V complex w/ short R-R interval Left bundle branch block...QRSd>120, broad/notched R Physician: no stemi, negative for sgarbossa
[2022-04-06 19:32] LABS: Bilirubin Negative (Negative); Blood Trace-intact (Negative); Clarity Clear (Clear); Glucose 250 mg/dL (Negative); Ketones Negative (Negative); Leukocyte Esterase Trace (Negative); Nitrite Negative (Negative); Specific Gravity 1.015 (1.005-1.025); Urobilinogen 0.2 EU/dL (Up TO 0.2)
[2022-04-06 19:43] LABS: Bacteria Moderate HPF (Negative); C & S Indicated? Yes; Crystals Negative HPF (Negative); Epithelial Cells Rare HPF (Negative); Mucus Trace (Negative); Other Cells Rare Renal (Negative); RBC 0-2 HPF (0-2); WBC 0-2 HPF (0-5)
--- NOTE | 2022-04-06 19:48 | NUR.NOTE ---
1910 assumed care of pt, IV attempts x 5 by 3 different RN's, unsuccessful. SHAHLA Pate made aware.
[2022-04-06 20:17] LABS: Source Nasal/Nares
[2022-04-06 20:29] LABS: INR 1.5 (0.9-1.1); Prothrombin Time 14.4 sec (9.3-11.0)
[2022-04-06 20:33] LABS: Abs Immature Grans 0.03 10^3/uL (0.0-0.06); Absolute Basophil Count 0.07 10^3/uL (0.0-0.2); Absolute Eosinophil Count 0.09 10^3/uL (0.0-0.7); Absolute Lymphocyte Count 2.13 10^3/uL (1.2-3.4); Absolute Monocyte Count 0.76 10^3/uL (0.1-0.8); Absolute Neutrophil Count 5.65 10^3/uL (1.2-6.7); Basophils % 0.8; HCT 39.6 % (36.0-46.0); HGB 13.2 g/dL (11.2-15.7); Immature Grans % 0.3; Lymphocytes % 24.4; MCH 30.3 pg (27.0-33.0); MCHC 33.3 % (32.0-36.0); MCV 91 fL (80-95); Monocytes % 8.7; Neutrophils % 64.8; Platelet Count 182 10^3/uL (130-400); RBC 4.36 10^6/uL (3.93-5.22); RDW 12.9 % (11.7-14.6); RDW-SD 43.7 fL; WBC 8.73 10^3/uL (4.4-10.8)
[2022-04-06] MEDS: Furosemide 40 MG/4 ML VIAL IVP (20:39)
--- NOTE | 2022-04-06 20:41 | DI.VRAD_ITS ---
PROCEDURE INFORMATION: Exam: XR Chest Exam date and time: 04/06/2022 8:23 PM Age: 87 years old Clinical indication: Other: Chf TECHNIQUE: Imaging protocol: Radiologic exam of the chest. Views: 2 views. COMPARISON: XR PORTABLE CHEST AP 03/26/2022 6:25 PM FINDINGS: Lungs: Mild chronic interstitial prominence. No consolidation. Pleural spaces: Unremarkable. No pleural effusion. No pneumothorax. Heart/Mediastinum: Grossly stable cardiomegaly. Bones/joints: Grossly stable. IMPRESSION: No acute findings. Dictated and Authenticated by: Lan Reddy MD. Ordering:MALLORY Willoughby MD
[2022-04-06 20:43] LABS: ALT 23 U/L (14-59); AST 18 U/L (15-37); Albumin 3.5 g/dL (3.4-5.0); Alkaline Phosphatase 107 U/L (46-116); Anion Gap 5.5 mmol/L (3-11); BUN 44 mg/dL (7-18); Bilirubin, Total 0.4 mg/dL (0.2-1.0); CO2 32.5 mmol/L (21.0-32.0); CREATININE 1.8 mg/dL (0.55-1.02); Calcium 9.1 mg/dL (8.5-10.1); Chloride 96 mmol/L (98-107); Glucose 299 mg/dL (74-106); Magnesium 2.5 mg/dL (1.8-2.4); NT-proBNP 1508 pg/mL (<300); Sodium 134 mmol/L (136-145)
[2022-04-06 20:47] LABS: Troponin I 228 ng/L (<or=60)
[2022-04-06 20:55] LABS: COVID-19 PCR Negative (Negative)
--- NOTE | 2022-04-06 21:54 | ED.GENADUL_ITS ---
Discharge Plan Disposition Patient Disposition: Home Condition: Good Discharge Details Clinical Impression: CHF exacerbation Primary Care Provider: Rad Yeh ED Provider: Jordy Shafer Home Meds and New Rx's Prescriptions: No Action nitroglycerin 0.4 mg tablet, sublingual 0.4 mg Sublingual Q 5 MIN PRN Qty: 15 4RF Label Comments: 11/06/18 Pt states she has not taken +1month. PG potassium chloride 10 mEq capsule, extended release 10 meq PO DAILY Qty: 90 3RF insulin degludec [Tresiba FlexTouch U-100] 100 unit/mL (3 mL) insulin pen 24 unit SC QHS Qty: 15 3RF Rx Instructions: Linda reduced her dose due to lower FBG ascorbic acid (vitamin C) 500 MG tablet 1,000 mg PO DAILY Hold Instructions: Patient reports getting her vitamin C from multivitamin. aspirin [Adult Low Dose Aspirin] 81 mg tablet,delayed release (DR/EC) 81 mg PO DAILY metoprolol succinate 200 mg tablet extended release 24 hr 200 mg PO DAILY Qty: 90 3RF Rx Instructions: prefers to take one tab torsemide 20 mg tablet 20 mg PO BID Qty: 180 3RF valsartan [Diovan] 40 mg tablet 40 mg PO DAILY Qty: 90 3RF diltiazem HCl 240 mg capsule,extended release 24 hr 240 mg PO DAILY Qty: 90 3RF (DME) pen needle, diabetic [BD Ultra-Fine Juliann Pen Needle] 32 gauge x 5/32 needle See Dose Instructions .ROUTE .MEDSUPPLY Qty: 100 3RF Dose Instruction: As directed Rx Instructions: inject once/day warfarin 2 mg tablet 2 mg PO DAILY Protocol: Dose Management Condition: Tuesday Dose/Route: 4 mg Instruction: 2 x 2 mg tablets Condition: Tuesday Dose/Route: 4 mg Instruction: 2 x 2 mg tablets Condition: Tuesday Dose/Route: 2 mg Instruction: 1 x 2 mg tablet Condition: Tuesday Dose/Route: 4 mg Instruction: 2 x 2 mg tablets Condition: Dose/Route: 2 mg Instruction: 1 x 2 mg tablet Condition: Tuesday Dose/Route: 4 mg Instruction: 2 x 2 mg tablets Condition: Tuesday Dose/Route: 2 mg Instruction: 1 x 2 mg tablet Protocol Text: Adjustment Start Date: Tuesday04/05/22 INR Value: 1.5 INR Date: 04/05/22 Recheck Date: 04/12/22 psyllium husk 0.52 gram Capsule 0.52 g PO QHS artifi.tears(hypromellose)(PF) 0.3 % Drops 1 drp OPHTHALMIC (EYE) HS docusate sodium [Colace] 100 mg Capsule 100 mg PO BID Qty: 60 0RF magnesium oxide 400 mg (241.3 mg magnesium) Tablet 400 mg PO DAILY Qty: 10 0RF Hold Instructions: Home Medication placed on hold at Doctor's office Discharge Instructions Instructions: Heart Failure (ED) Additional Instructions: At this time you have had a notable improvement after you were diuresed. Please continue to take your diuretic pills at home. If you notice any worsening of your symptoms, or any new symptoms such as vomiting, diarrhea, fever, chills, shortness of breath, chest pain, numbness, weakness, or fainting , please return immediately to the emergency department for reevaluation. Please follow up with your primary care provider as soon as possible for reassessment and reevaluation. As always, it was a pleasure participating in your medical care today. Referrals: Rad Yeh MD [Primary Care Provider] - Discharge Data Discharge Date/Time-TO BE ENTERED AT DEPARTURE: 04/07/22 05:58 Medical Decision Making <Case Castanon NP - Last Filed: 04/07/22 08:54> Patient presenting to the emergency department for chief complaint of general ized weakness and increased swelling of her lower extremities. She does state her blood sugar has been running a little higher recently but attributes this to her diet. Patient denies any chest pain, does state some shortness of breath with activity denies syncope fever chills or other symptoms. Patient does have significant past medical history of hypertension, CHF with reduced EF, A. fib with RVR, CAD, CKD type III. Physical exam shows clear lung sounds but slightly diminished in bases, no rhonchi or rails or crackles heard, normal cardiac exam, bilateral lower extremity edema that is 2+ with minimal pitting from the knees down. Patient has no signs of respiratory distress and is otherwise in stable condition. We will plan on checking labs, EKG, and chest x- ray. Pending results will give IV Lasix 40mg as I feel this is an acute CHF exacerbation secondary to diet which patient states she has not been very compliant with. We will continue to monitor. Please see physician report for EKG but patient appears to be in a flutter with a 3-1 and does not meet acute ischemic STEMI criteria at this time. Review of labs show a unremarkable and stable CBC with no signs of anemia, INR of 1.5, sodium slightly low at 134, chloride low at 96, carbon dioxide 32.5, BUN 44 with creatinine 1.8 and GFR of 27 which is at patient's baseline, glucose slightly elevated at 299 and magnesium slightly elevated at 2.5. BNP is elevated at 1508 and initial troponin is 228. These are actually both near patient's baseline and do not show much change from previous episodes. Reassessed patient and she does feel slightly better after urinating twice so pending second troponin will give additional dose of torsemide 20 mg. Imaging Data Radiologic Study: Imaging: X-Ray Radiologist's impression: PROCEDURE INFORMATION: Exam: XR Chest Exam date and time: 04/06/2022 8:23 PM Age: 87 years old Clinical indication: Other: Chf TECHNIQUE: Imaging protocol: Radiologic exam of the chest. Views: 2 views. COMPARISON: XR PORTABLE CHEST AP 03/26/2022 6:25 PM FINDINGS: Lungs: Mild chronic interstitial prominence. No consolidation. Pleural spaces: Unremarkable. No pleural effusion. No pneumothorax. Heart/Mediastinum: Grossly stable cardiomegaly. Bones/joints: Grossly stable. IMPRESSION: No acute findings. <Jordy Shafer, DO - Last Filed: 04/07/22 00:21> Patient presenting to the emergency department for chief complaint of generalized weakness and increased swelling of her lower extremities. She does state her blood sugar has been running a little higher recently but attributes this to her diet. Patient denies any chest pain, does state some shortness of breath with activity denies syncope fever chills or other symptoms. Patient does have significant past medical history of hypertension, CHF with reduced EF, A. fib with RVR, CAD, CKD type III. Physical exam shows clear lung sounds but slightly diminished in bases, no rhonchi or rails or crackles heard, normal cardiac exam, bilateral lower extremity edema that is 2+ with minimal pitting from the knees down. Patient has no signs of respiratory distress and is otherwise in stable condition. We will plan on checking labs, EKG, and chest x- ray. Pending results will give IV Lasix 40mg as I feel this is an acute CHF exacerbation secondary to diet which patient states she has not been very compliant with. We will continue to monitor. Please see physician report for EKG but patient appears to be in a flutter with a 3-1 and does not meet acute ischemic STEMI criteria at this time. Review of labs show a unremarkable and stable CBC with no signs of anemia, INR of 1.5, sodium slightly low at 134, chloride low at 96, carbon dioxide 32.5, BUN 44 with creatinine 1.8 and GFR of 27 which is at patient's baseline, glucose slightly elevated at 299 and magnesium slightly elevated at 2.5. BNP is elevated at 1508 and initial troponin is 228. These are actually both near patient's baseline and do not show much change from previous episodes. Reassessed patient and she does feel slightly better after urinating twice so pending second troponin will give additional dose of torsemide [address] Shafer's documentation 12:18 AM Patient was signed out to me for reassessment after diuresis and repeat troponin. Repeat troponin has returned and it is downtrending. Patient has notable chronic troponinemia with an elevated troponin regularly. She is actually lower than normal at this time. After diuresis by Case Castanon the patient is feeling much better. She got up and ambulated well with no weakness shortness of breath or hypoxemia whatsoever. She feels well and feels comfortable to go home. Diagnosis mild CHF. The remainder of her laboratory work-up is stable for her. She does not want any additional interventions at this time. Patient does not currently have a ride to go home, so we will hold her here in the emergency department till about 6 AM when she can get a ride. Otherwise patient feels stable and well. I have extensively reviewed the treatment plan and discharge instructions with the patient. I have addressed all patient concerns at this time. The patient was made aware of what symptoms to monitor for that would warrant a return to the emergency department. Discussed the plan with the patient, they demonstrate verbal understanding and agreement with our assessment and plan at this time. The documentation in this chart was dictated using [employer] dictation software. Please excuse any dictation errors. HPI <Case Castanon NP - Last Filed: 04/07/22 08:54> General Mode of arrival: wheelchair . Date/Time Provider Initiated Documentation: 04/06/22 18:21 . Limitations to Documentation: no limitations . Information obtained by: patient and RN notes reviewed . History of Present Illness 87 year old F presents to the emergency department with the chief complaint of Lower extremity swelling slight shortness of breath, described as moderate and similar to prior episodes, and is localized to the lower extremity. Patient reports no radiation. Patient started experiencing this day(s) (3) and it has been constant. Medication improves symptom(s), No exacerbating factors reported . Patient notes no other symptoms.. Patient did receive the following treatments prior to arrival, other (Did take typical evening meds including torsemide) Related Data Home Medications Medication Instructions Recorded Confirmed ascorbic acid (vitamin C) 500 mg 1,000 mg PO DAILY 07/15/12 04/06/22 tablet aspirin 81 mg tablet,delayed 81 mg PO DAILY 06/20/19 04/06/22 release (Adult Low Dose Aspirin) docusate sodium 100 mg capsule 100 mg PO BID #60 caps 10/14/19 04/06/22 (Colace) magnesium oxide 400 mg (241.3 mg 400 mg PO DAILY #10 tabs 10/14/19 04/06/22 magnesium) tablet metoprolol succinate 200 mg 200 mg PO DAILY #90 tabs 05/20/21 04/06/22 tablet,extended release 24 hr torsemide 20 mg tablet 20 mg PO BID #180 tabs 05/20/21 04/06/22 valsartan 40 mg tablet (Diovan) 40 mg PO DAILY #90 tabs 05/20/21 04/06/22 nitroglycerin 0.4 mg sublingual 0.4 mg sublingual Q 5 MIN PRN #15 06/10/21 04/06/22 tablet tab-caps diltiazem HCl 240 mg capsule,24 240 mg PO DAILY #90 caps 07/06/21 04/06/22 hr,extended release pen needle, diabetic 32 gauge x #100 ea 09/04/21 04/06/22 (BD Ultra-Fine Juliann Pen Needle) insulin degludec 100 unit/mL (3 24 unit (0.24 mL) subcut QHS #15 mL 09/22/21 04/06/22 mL) subcutaneous pen (Tresiba FlexTouch U-100 insulin) potassium chloride 10 mEq 10 meq PO DAILY #90 caps 12/17/21 04/06/22 capsule,extended release artifi.tears(hypromellose)(PF) 0.3 1 drp ophthalmic (eye) HS 03/02/22 04/06/22 % eye drops psyllium husk 0.52 gram capsule 0.52 g PO QHS 03/02/22 04/06/22 warfarin 2 mg tablet 2 mg PO DAILY 03/15/22 04/06/22 Previous Rx's Medication Instructions Recorded docusate sodium 100 mg capsule 100 mg PO BID #60 caps 10/14/19 (Colace) magnesium oxide 400 mg (241.3 mg 400 mg PO DAILY #10 tabs 10/14/19 magnesium) tablet metoprolol succinate 200 mg 200 mg PO DAILY #90 tabs 05/20/21 tablet,extended release 24 hr torsemide 20 mg tablet 20 mg PO BID #180 tabs 05/20/21 valsartan 40 mg tablet (Diovan) 40 mg PO DAILY #90 tabs 05/20/21 nitroglycerin 0.4 mg sublingual 0.4 mg sublingual Q 5 MIN PRN #15 06/10/21 tablet tab-caps diltiazem HCl 240 mg capsule,24 240 mg PO DAILY #90 caps 07/06/21 hr,extended release pen needle, diabetic 32 gauge x #100 ea 09/04/21 (BD Ultra-Fine Juliann Pen Needle) insulin degludec 100 unit/mL (3 24 unit (0.24 mL) subcut QHS #15 mL 09/22/21 mL) subcutaneous pen (Tresiba FlexTouch U-100 insulin) potassium chloride 10 mEq 10 meq PO DAILY #90 caps 12/17/21 capsule,extended release Allergies Allergy/AdvReac Type Severity Reaction Status Date / Time Tetanus Vaccines and Toxoid Allergy Intermediate Verified 04/06/22 17:36 doxycycline AdvReac Severe GI UPSET Verified 04/06/22 17:36 verapamil AdvReac Severe dizziness Verified 04/06/22 17:36 doxazosin mesylate AdvReac Intermediate muscle Verified 04/06/22 17:36 [From Cardura] aches atenolol AdvReac Mild leg pain Verified 04/06/22 17:36 General Stated Complaint: GenMedical GELA: 3 Review of Systems <Case Castanon NP - Last Filed: 04/07/22 08:54> Constitutional Constitutional: Denies chills, Denies fever(s), Denies headache(s), Reports lethargy, Reports malaise and Denies poor appetite ENT Ears, Nose, Mouth, and Throat: Denies headache(s), Denies nasal congestion and Denies sore throat Cardiovascular Cardiovascular: Reports as per HPI, Denies chest pain, Denies syncope, Denies irregular heart rhythm, Reports leg edema, Denies lightheadedness, Reports dyspnea and Reports dyspnea on exertion Respiratory Respiratory: Denies cough, Reports dyspnea, Reports dyspnea on exertion and Denies wheezing Gastrointestinal Gastrointestinal: Denies abdominal pain, Denies diarrhea, Denies nausea and Denies vomiting Genitourinary Genitourinary: Denies difficulty voiding and Denies dysuria Integumentary/Breasts Skin/Breast: Denies rash and Denies wounds Neurologic Neurologic: Denies syncope and Denies headache(s) Allergic/Immunologic Allergic/Immunologic: Denies wheezing [facility] <Case Castanon NP - Last Filed: 04/07/22 08:54> All Active Problems (Updated 04/07/22 @ 00:20 by Jordy Shafer DO) Chest pain (Acute) CHF exacerbation (Acute) Open wound of both lower extremities (Acute) Morbid obesity (Acute) Edema (Chronic) right leg> left Weakness generalized (Acute) has not returned to baseline since stroke Atrial flutter (Acute) Elevated troponin (Acute) CKD (chronic kidney disease), stage II (Chronic) on cusp of stage 3 Fatigue (Acute) Dyspnea (Acute) 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) has hearing aids Goals of care, counseling/discussion (Acute) Ambulatory dysfunction (Acute) 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) Refusal of blood transfusions as patient is Oriental orthodox (Acute) CHF (congestive heart failure) (Chronic) Hypertension (Chronic) Mild obstructive sleep apnea (Acute 11/17/15) [facility] Hyperlipidemia (Chronic) Chronic anticoagulation (Chronic) Medical History Acute CVA (cerebrovascular accident) Acute deep vein thrombosis (DVT) of right lower extremity Acute on chronic systolic heart failure All medications reviewed Arthritis ASCVD (arteriosclerotic cardiovascular disease) (04/22/15) NC with out of hosp cardiac arrest LAD stent, LVEF 35% Atrial fibrillation (05/27/11) paroxysmal Oct 2009 Atrial fibrillation with rapid ventricular response Carpal tunnel syndrome on both sides s/p Left ECTR 01/30/2020 Chronic low back pain Complementary medicine Constipation Counseling on health promotion and disease prevention COVID-19 ruled out by clinical criteria Diabetes mellitus Diabetes mellitus out of control DNI (do not intubate) DNR (do not resuscitate) Eructation Essential hypertension (01/04/13) echo 2007 LVH uncontrolled BP (neg w/u for pheo) Excessive vitamin intake her naturopathic remedies have many times 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 Foot drop, left Fracture of head of right femur s/p R Anterior DARIEL (10/04/19) GERD (gastroesophageal reflux disease) Hearing loss Heart failure with reduced ejection fraction Hypertensive retinopathy Hyponatremia Impaired left ventricular function (~05/2019) [facility]; 35% Insomnia Iron deficiency anemia Leg length discrepancy Lives alone Low back pain Lumbar stenosis Nail dystrophy Noncompliance with medication regimen (09/26/12) NSTEMI (non-ST elevated myocardial infarction) (~05/2019) [facility] Pain in left thigh Palliative care patient 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 Pedal edema POLST (Physician Orders for Life-Sustaining Treatment) Polypharmacy takes both allopathic and naturopathic meds Postoperative anemia due to acute blood loss Prerenal azotemia Renal insufficiency Retinopathy, background, nonproliferative, mild (01/01/16) Right arm pain Right groin pain Right knee pain Right rotator cuff tear Spinal stenosis at L4-L5 level Tachycardia Tachycardia Type II diabetes mellitus with complication, uncontrolled (05/14/14) UTI (urinary tract infection) Vaccine counseling she thinks her 03/17 TIA/CVA was due COVID-19 vaccine Surgical History History of appendectomy History of carpal tunnel surgery of left wrist (01/30/20) History of right hip replacement Family History Brother Cancer Brother Cancer Leukemia Mother Asthma Sister Cancer Brother Dementia lives in SNF Son Prostate cancer Fall from ladder Son Paraplegic spinal paralysis motor vehicle crash Son No problems noted. Son No problems noted. 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 [employer] Pets and animals: Yes (one cat, Fancy) Pets and animals: cat(s) Current gender identity: female What is your relationship status?: How often do you talk on the phone with friends or family?: three or more times per week How often do you get together with friends or relatives?: three or more times per week How often do you attend evangelical or mandaeism services?: 4 or more times per year Panel score (0-1 are the most socially isolated patients): 2 What type of physical activity do you participate in: assisted ambulation Duration: 15-30 minutes/day Frequency: does not exercise Faviola/Moravian: Oriental orthodox Special faviola needs: Yes (no transfusion) Agree to transfusion: No Seatbelt use: always Drive intox 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 in 2001. Linda's family hires [employer] to help with housework mostly. Hip pain better since her surgery with Dr Stovall. Lately, her biggest health problems have been chronic dyspnea, low exercise tolerance. Would like to go outside more but NEEDS BIG WHEELED walker, suitable for outdoors walking. Not going outside. Exam <Case Castanon NP - Last Filed: 04/07/22 08:54> Const General: cooperative, comfortable, no acute distress, not diaphoretic and not ill appearing Orientation: alert, awake and oriented x3 Limitations: mental status not altered Neck Neck: normal visual inspection, full ROM, trachea midline, supple and no anterior neck swelling Carotids: normal carotid upstroke and no bruits Chest Chest: normal inspection of the chest Resp Effort & Inspection: normal respiratory effort, able to speak in complete sentences, normal respiratory pattern, no cough and not tachypneic Auscultation: clear to auscultation bilaterally, no rales and no rhonchi Cardio Jugular venous pressure: no JVD Palpation: normal PMI Rate: regular rate Rhythm: regular rhythm Heart Sounds: S1 normal, S2 normal, no click, no gallops, no murmurs and no rubs Bruits: no abdominal aortic bruits and no carotid bruits Pulses: radial pulses present bilaterally 2+ Neuro General: patient alert, patient awake, patient oriented x3, tone normal and moves all extremities Extrem General: edema (from knee down) Laterality: bilateral (2+ minimal pitting) Course <Case Castanon NP - Last Filed: 04/07/22 08:54> Vital Signs Vital signs: Vital Signs Temperature 37.0 C 04/06/22 17:31 Pulse 109 H 04/06/22 17:31 Respiratory Rate 20 04/06/22 17:31 Blood Pressure 126/108 H 04/06/22 17:31 Pulse Oximetry 98 04/06/22 17:31 Temperature 37.0 C 04/06/22 17:31 Temperature Source Temporal Artery Scan 04/06/22 17:31 Pulse 65 04/06/22 21:46 Pulse 75 04/06/22 21:46 Respiratory Rate 17 04/06/22 21:46 Respiratory Effort 04/06/22 20:18 Respiratory Depth Normal 04/06/22 20:18 Respiratory Pattern Normal 04/06/22 20:18 Blood Pressure 122/83 04/06/22 21:46 Blood Pressure Mean 93 04/06/22 21:46 Blood Pressure Position Sitting 04/06/22 17:31 Pulse Oximetry 96 04/06/22 21:46 Oxygen Delivery Method Room Air 04/06/22 17:31 Oxygen Flow Rate 0 04/06/22 17:31 Pain Level 0 04/06/22 17:31 Lab/Test Results Lab/Test Results: 04/06/22 19:06 Urine - Reflex from Ua Urine Culture - Pending Laboratory Tests Range/Units 04/06/22 04/06/22 04/06/22 19:06 20:00 20:00 WBC (4.4-10.8) 10^3/uL 8.73 RBC (3.93-5.22) 10^6/uL 4.36 Hgb (11.2-15.7) g/dL 13.2 Hct (36.0-46.0) % 39.6 MCV (80-95) fL 91 MCH (27.0-33.0) pg 30.3 MCHC (32.0-36.0) % 33.3 RDW (11.7-14.6) % 12.9 Plt Count (130-400) 10^3/uL 182 MPV (8.0-11.0) fL Immature Gran % 0.3 Neutrophils % 64.8 Lymphocytes % 24.4 Monocytes % 8.7 Eosinophils % 1.0 Basophils % 0.8 Nucleated RBC % (0.0-0.3) % 0.0 Absolute Neutrophils (1.2-6.7) 10^3/uL 5.65 Absolute Lymphocytes (1.2-3.4) 10^3/uL 2.13 Absolute Monocytes (0.1-0.8) 10^3/uL 0.76 Absolute Eosinophils (0.0-0.7) 10^3/uL 0.09 Absolute Basophils (0.0-0.2) 10^3/uL 0.07 PT (9.3-11.0) sec INR (0.9-1.1) Sodium (136-145) mmol/L 134 L Potassium (3.5-5.1) mmol/L 4.0 Chloride (98-107) mmol/L 96 L Carbon Dioxide (21.0-32.0) mmol/L 32.5 H Anion Gap (3-11) mmol/L 5.5 BUN (7-18) mg/dL 44 H Creatinine (0.55-1.02) mg/dL 1.8 H Est GFR (CKD-EPI 2020) (mL/min/1.73m2) 27.10 Glucose (74-106) mg/dL 299 H Calcium (8.5-10.1) mg/dL 9.1 Magnesium (1.8-2.4) mg/dL 2.5 H Total Bilirubin (0.2-1.0) mg/dL 0.4 AST (15-37) U/L 18 ALT (14-59) U/L 23 Alkaline Phosphatase (46-116) U/L 107 Troponin I (<or=60) ng/L 228 H* NT-Pro-B Natriuret Pep (<300) pg/mL 1508 H Total Protein (6.4-8.2) g/dL 8.0 Albumin (3.4-5.0) g/dL 3.5 Urine Color (Yellow) Yellow Urine Clarity (Clear) Clear Urine pH (5-8) 7.0 Ur Specific Woodruff (1.005-1.025) 1.015 Urine Protein (Negative) mg/dL 30 H Urine Ketones (Negative) mg/dL Negative Urine Blood (Negative) Trace-intact H Urine Nitrite (Negative) Negative Urine Bilirubin (Negative) Negative Urine Urobilinogen (Up TO 0.2) EU/dL 0.2 Ur Leukocyte Esterase (Negative) Trace H Urine RBC (0-2) HPF 0-2 Urine WBC (0-5) HPF 0-2 Ur Epithelial Cells (Negative) HPF Rare Urine Crystals (Negative) HPF Negative Urine Bacteria (Negative) HPF Moderate Urine Mucus (Negative) Trace Urine Other (Negative) Rare Renal Ur Culture Indicated? Yes Urine Glucose (Negative) mg/dL 250 H COVID-19 Source SARS-CoV-2 (PCR) (Negative) Range/Units 04/06/22 04/06/22 20:00 20:00 WBC (4.4-10.8) 10^3/uL RBC (3.93-5.22) 10^6/uL Hgb (11.2-15.7) g/dL Hct (36.0-46.0) % MCV (80-95) fL MCH (27.0-33.0) pg MCHC (32.0-36.0) % RDW (11.7-14.6) % Plt Count (130-400) 10^3/uL MPV (8.0-11.0) fL Immature Gran % Neutrophils % Lymphocytes % Monocytes % Eosinophils % Basophils % Nucleated RBC % (0.0-0.3) % Absolute Neutrophils (1.2-6.7) 10^3/uL Absolute Lymphocytes (1.2-3.4) 10^3/uL Absolute Monocytes (0.1-0.8) 10^3/uL Absolute Eosinophils (0.0-0.7) 10^3/uL Absolute Basophils (0.0-0.2) 10^3/uL PT (9.3-11.0) sec 14.4 H INR (0.9-1.1) 1.5 H Sodium (136-145) mmol/L Potassium (3.5-5.1) mmol/L Chloride (98-107) mmol/L Carbon Dioxide (21.0-32.0) mmol/L Anion Gap (3-11) mmol/L BUN (7-18) mg/dL Creatinine (0.55-1.02) mg/dL Est GFR (CKD-EPI 2020) (mL/min/1.73m2) Glucose (74-106) mg/dL Calcium (8.5-10.1) mg/dL Magnesium (1.8-2.4) mg/dL Total Bilirubin (0.2-1.0) mg/dL AST (15-37) U/L ALT (14-59) U/L Alkaline Phosphatase (46-116) U/L Troponin I (<or=60) ng/L NT-Pro-B Natriuret Pep (<300) pg/mL Total Protein (6.4-8.2) g/dL Albumin (3.4-5.0) g/dL Urine Color (Yellow) Urine Clarity (Clear) Urine pH (5-8) Ur Specific Woodruff (1.005-1.025) Urine Protein (Negative) mg/dL Urine Ketones (Negative) mg/dL Urine Blood (Negative) Urine Nitrite (Negative) Urine Bilirubin (Negative) Urine Urobilinogen (Up TO 0.2) EU/dL Ur Leukocyte Esterase (Negative) Urine RBC (0-2) HPF Urine WBC (0-5) HPF Ur Epithelial Cells (Negative) HPF Urine Crystals (Negative) HPF Urine Bacteria (Negative) HPF Urine Mucus (Negative) Urine Other (Negative) Ur Culture Indicated? Urine Glucose (Negative) mg/dL COVID-19 Source Nasal/Nares SARS-CoV-2 (PCR) (Negative) Negative Sign Out <Case Castanon NP - Last Filed: 04/07/22 08:54> Sign Out Data: Sign Out Comment: Patient pending second troponin and reassessment after aggressive diuresis for acute CHF exacerbation. Last updated by Case Castanon NP at 04/06/22 23:37
[2022-04-06] MEDS: Torsemide 20 MG TAB PO (22:25)
[2022-04-07] VITALS (11 sets, daily range): BP systolic 123–158; BP diastolic 58–83; PULSE 67–89; RESP 17–33; O2SAT 91–96
[2022-04-07 00:01] LABS: Troponin I 208 ng/L (<or=60)
--- NOTE | 2022-04-07 00:15 | NUR.NOTE ---
trial ambulation, pt maintained pulse ox 95-97% with no increase in sob or any complaints. Dr Shafer made aware, plan to let pt sleep for a few hours until her son can come get her. VSS. CB within reach.
== END 2022-04-07 05:58 | disposition home or self-care (01) ==
PROVIDERS: Nurse Practitioner Family; Emergency Provider Student in an Organized Health Care Education/Training Program; PCP Family Medicine
DX: I13.0 Hypertensive heart and chronic kidney disease with heart failure and stage 1 through stage 4 chronic kidney disease, or unspecified chronic kidney disease (principal); I50.20 Unspecified systolic (congestive) heart failure; N18.30 Chronic kidney disease, stage 3 unspecified; I48.91 Unspecified atrial fibrillation; E11.22 Type 2 diabetes mellitus with diabetic chronic kidney disease; E87.1 Hypo-osmolality and hyponatremia; E87.8 Other disorders of electrolyte and fluid balance, not elsewhere classified; E83.41 Hypermagnesemia; R79.89 Other specified abnormal findings of blood chemistry; Z79.82 Long term (current) use of aspirin; Z79.01 Long term (current) use of anticoagulants; Z86.73 Personal history of transient ischemic attack (TIA), and cerebral infarction without residual deficits; Z20.822 Contact with and (suspected) exposure to COVID-19; Z79.4 Long term (current) use of insulin; I25.10 Atherosclerotic heart disease of native coronary artery without angina pectoris; Z86.718 Personal history of other venous thrombosis and embolism; R53.1 Weakness; R82.998 Other abnormal findings in urine
CPT/HCPCS: 36415; 80053; 87635; 93005; 96374; 99284; 71046; 81003; 81015; 83735; 83880; 84484; 85025; 85610; 87086; 93010; J1940

== ENCOUNTER 2022-04-27 17:20 | Outpatient (REF) | payer MEDICARE, OTHER, SELFPAY ==
[2022-04-27 18:32] LABS: Hemoglobin A1C 12.2 % (<5.7)
== END 2022-04-27 17:21 | disposition home or self-care (01) ==
LOC: LBN 17:20
PROVIDERS: PCP Family Medicine; Visit Provider Family Medicine
DX: R73.9 Hyperglycemia, unspecified (principal)
CPT/HCPCS: 83036

== ENCOUNTER → 2022-07-15 09:14 | Outpatient (BNVA) | payer MEDICARE, SELFPAY | PROVIDERS: PCP Family Medicine; Visit Provider Internal Medicine Cardiovascular Disease | DX: I11.0 Hypertensive heart disease with heart failure (principal); I50.42 Chronic combined systolic (congestive) and diastolic (congestive) heart failure; I48.4 Atypical atrial flutter; Z79.01 Long term (current) use of anticoagulants; Z86.73 Personal history of transient ischemic attack (TIA), and cerebral infarction without residual deficits; E11.9 Type 2 diabetes mellitus without complications; I25.10 Atherosclerotic heart disease of native coronary artery without angina pectoris | CPT/HCPCS: 99214 ==

== ENCOUNTER 2022-08-17 10:23 | Outpatient (CLI) | payer MEDICARE, SELFPAY ==
[2022-08-17 12:42] LABS: Hemoglobin A1C 9.5 % (<5.7)
== END 2022-08-17 10:24 | disposition home or self-care (01) ==
LOC: LOS 10:24
PROVIDERS: PCP Family Medicine; Referring Provider Family Medicine; Visit Provider Family Medicine
DX: E11.22 Type 2 diabetes mellitus with diabetic chronic kidney disease (principal); N18.30 Chronic kidney disease, stage 3 unspecified
CPT/HCPCS: 36415; 83036

== ENCOUNTER 2022-08-30 10:24 | Day surgery (SDC) | payer MEDICARE, SELFPAY ==
[2022-08-30 11:05] VITALS: BP 138/90; PULSE 66; RESP 16; TEMP 36.5; O2SAT 94
[2022-08-30] MEDS: Tropicam./Phenyleph. (1/2.5%) 5 ML BTL OS ×3 (11:41→11:51)
--- NOTE | 2022-08-30 12:40 | W.ANESPRE ---
General Info Date of Service Date Performed: 08/30/22 Height: 5 ft Weight: 83.6 kg Body Mass Index (BMI): 35.9 Surgical Procedure: Operation Date: 08/30/22 12:10 Proposed Procedure Side Surgeon p Cataract Extraction with IOL Implant Left Nitish Renteria MD Meds Allergies and Home Medications Allergies Allergy/AdvReac Type Severity Reaction Status Date / Time Tetanus Vaccines and Toxoid Allergy Intermediate Verified 08/30/22 11:25 doxycycline AdvReac Severe GI UPSET Verified 08/30/22 11:25 verapamil AdvReac Severe dizziness Verified 08/30/22 11:25 doxazosin mesylate AdvReac Intermediate muscle Verified 08/30/22 11:25 [From Cardura] aches atenolol AdvReac Mild leg pain Verified 08/30/22 11:25 Home Medication Medication Instructions Recorded ascorbic acid (vitamin C) 500 mg 1,000 mg PO DAILY 07/15/12 tablet aspirin 81 mg tablet,delayed 81 mg PO DAILY 06/20/19 release (Adult Low Dose Aspirin) docusate sodium 100 mg capsule 100 mg PO BID #60 caps 10/14/19 (Colace) magnesium oxide 400 mg (241.3 mg 400 mg PO DAILY #10 tabs 10/14/19 magnesium) tablet nitroglycerin 0.4 mg sublingual 0.4 mg sublingual Q 5 MIN PRN #15 06/10/21 tablet tab-caps potassium chloride 10 mEq 10 meq PO DAILY #90 caps 12/17/21 capsule,extended release artifi.tears(hypromellose)(PF) 0.3 1 drp ophthalmic (eye) HS 03/02/22 % eye drops psyllium husk 0.52 gram capsule 0.52 g PO QHS 03/02/22 warfarin 2 mg tablet 2 mg PO DAILY 03/15/22 insulin degludec 100 unit/mL (3 32 unit (0.32 mL) subcut QHS #15 mL 05/07/22 mL) subcutaneous pen (Tresiba FlexTouch U-100 insulin) metoprolol succinate 200 mg 200 mg PO DAILY #90 tabs 06/01/22 tablet,extended release 24 hr torsemide 20 mg tablet 20 mg PO BID #180 tabs 06/01/22 valsartan 40 mg tablet (Diovan) 40 mg PO DAILY #90 tabs 06/01/22 warfarin 4 mg tablet (Jantoven) 4 mg PO QPM #180 tabs 06/19/22 diltiazem HCl 240 mg capsule,24 240 mg PO DAILY #90 caps 06/28/22 hr,extended release pen needle, diabetic 32 gauge x #100 ea 08/17/22 (BD Ultra-Fine Juliann Pen Needle) Current Visit Medications: Current Medications Generic Name Dose Route Start Last Admin Trade Name Freq PRN Reason Stop Dose Admin Acetaminophen 1,000 mg 08/30/22 06:00 Acetaminophen 500 Mg Tab PO 09/29/22 05:59 Q4H PRN PRN Balanced Salt Solution 500 ml 08/30/22 06:00 Balanced Salt Soln.-Plus 500 Ml Bag OP 09/29/22 05:59 DIRECTED KATHY Miscellaneous Medication 0 ml 08/30/22 06:00 Prednisolone 1%, Moxifloxacin 0.5%, Nepafenac 0.1% 5ml Btl OS 09/29/22 05:59 DIRECTED KATHY Miscellaneous Medication 0 ml 08/30/22 06:00 08/30/22 11:51 Tropicam./Phenyleph. (1/2.5%) 5 Ml Btl OS 09/29/22 05:59 1 drp DIRECTED KATHY Administration Tetracaine HCl 0 ml 08/30/22 06:00 Tetracaine 0.5% 4 Ml Btl OS 09/29/22 05:59 DIRECTED KATHY PFSH Active Problems Active Problems: Problem Status Onset Code Posterior subcapsular age-related cataract of left eye H25.042 Cortical age-related cataract, left eye H25.012 Nuclear age-related cataract, left eye H25.12 Hyperlipidemia E78.5 Mild obstructive sleep apnea 16 G47.33 Chronic anticoagulation Z79.01 Hypertension I10 CHF (congestive heart failure) I50.9 Palliative care patient Z51.5 Refusal of blood transfusions as patient is Spiritism Z53.1 Chronic HFrEF (heart failure with reduced ejection fraction) I50.22 Ambulatory dysfunction R26.2 Goals of care, counseling/discussion Z71.89 Sensorineural hearing loss of both ears H90.3 Dyspnea R06.00 Fatigue R53.83 Elevated troponin R77.8 Atrial flutter I48.92 Weakness generalized R53.1 Edema R60.9 Morbid obesity E66.01 Open wound of both lower extremities S81.801A, S81.802A History of stroke in adulthood Z86.73 CKD stage 3 due to type 2 diabetes mellitus E11.22, N18.30 Poorly controlled type 2 diabetes mellitus E11.65 Advanced care planning/counseling discussion Z71.89 Medical History Medical History Acute CVA (cerebrovascular accident) per pt. summer 2021 Acute deep vein thrombosis (DVT) of right lower extremity Acute on chronic systolic heart failure All medications reviewed Arthritis ASCVD (arteriosclerotic cardiovascular disease) (04/22/15) [place] out of hosp cardiac arrest LAD stent, LVEF 35% Atrial fibrillation (05/27/11) paroxysmal Oct 2009 Atrial fibrillation with rapid ventricular response Carpal tunnel syndrome on both sides s/p Left ECTR 01/30/2020 Chronic low back pain CKD (chronic kidney disease), stage II on cusp of stage 3 Complementary medicine Constipation Counseling on health promotion and disease prevention COVID-19 ruled out by clinical criteria Diabetes mellitus Diabetes mellitus out of control DNI (do not intubate) DNR (do not resuscitate) Eructation Essential hypertension (01/04/13) echo 2007 LVH uncontrolled BP (neg w/u for pheo) Excessive vitamin intake her naturopathic remedies have many times more than 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 Foot drop, left Fracture of head of right femur s/p R Anterior DARIEL (10/04/19) GERD (gastroesophageal reflux disease) Hearing loss Heart failure with reduced ejection fraction Hypertensive retinopathy Hyponatremia Impaired left ventricular function (~05/2019) [facility] [place]; 35% Insomnia Iron deficiency anemia Leg length discrepancy Lives alone Low back pain Lumbar stenosis Nail dystrophy Noncompliance with medication regimen (09/26/12) NSTEMI (non-ST elevated myocardial infarction) (~05/2019) [facility] [place]-2016 Pain in left thigh 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 Pedal edema POLST (Physician Orders for Life-Sustaining Treatment) Polypharmacy takes both allopathic and naturopathic meds Postoperative anemia due to acute blood loss Prerenal azotemia Renal insufficiency Retinopathy, background, nonproliferative, mild (01/01/16) Right arm pain Right groin pain Right knee pain Right rotator cuff tear Spinal stenosis at L4-L5 level Tachycardia Tachycardia Type II diabetes mellitus with complication, uncontrolled (05/14/14) UTI (urinary tract infection) Vaccine counseling she thinks her 03/17 TIA/CVA was due COVID-19 vaccine Surgical History Surgical History History of appendectomy History of carpal tunnel surgery of left wrist (01/30/20) History of right hip replacement Tobacco Smoking/Tobacco Use Status: Never Second hand exposure: No (late smoked heavily, no current exposure) Alcohol Alcohol Intake: current Alcohol intake frequency: holidays/special occasions only Alcohol type: wine Substance Use Substance use: Never Substance use type: does not use Vital Signs and Lab Results Vital Signs Most Recent Vital Signs in EMR: Most Recent Vital Signs Temp Pulse Resp BP Pulse Ox 36.5 C 66 16 138/90 94 08/30/22 11:05 08/30/22 11:05 08/30/22 11:05 08/30/22 11:05 08/30/22 11:05 Point of Care Results Point of Care Results: Finger Stick Blood Glucose 155 08/30/22 11:11 Lab Results Blood Type / Crossmatch: No Data to Display Complete Blood Count: No Data to Display Complete Metabolic Panel: Hemoglobin A1c 9.5 % (<5.7) H 08/17/22 10:27 Liver Function Panel: No Data to Display Coagulation Panel: INR International Normalized Ratio 1.9 (0.9-1.1) H 08/30/22 10:23 Cardiac Panel: No Data to Display Arterial Blood Gas: No Data to Display Venous Blood Gas: No Data to Display Pancreas Panel: No Data to Display Thyroid Panel: No Data to Display Infectious Disease: No Data to Display Blood Cultures: No Data to Display Toxicology Panel: No Data to Display Anesthesia Assessment and Plan Anesthesia History Personal History: No History of Anesthesia Complications Family History: No Family History of Anesthesia Complications Exercise Tolerance Exercise Tolerance: Metabolic Equivalents>4 Pertinent Negatives Pertinent Negatives: No Symptoms of GERD Cardiac & Pulmonary Exam Cardiac Exam: Normal S1/S2 Heart Sounds Pulmonary Exam: Clear Bilateral Breath Sounds Implantable Cardiac Device Does patient have a Pacemaker or an ICD?: No Airway Exam Known Difficult Airway: No Mallampati Class: 2 Mouth Opening: Normal (> 3cm) Thyromental Distance: Greater than 3 cm Neck Range of Motion: Full ROM Neck Circumference: Normal Teeth Condition: Normal Dentition ASA Classification ASA Score: ASA 3 Emergency Case?: No NPO Status NPO Status: NPO Clears >2 hours, Solids >8 hours Anesthesia Plan Resuscitation Status: Full Code Anesthesia Technique: MAC Anesthesia Airway Planned: Natural Airway Monitors Used: Standard Monitors
[2022-08-30 12:41] VITALS: BMI 35.9
[2022-08-30] MEDS: Balanced Salt Soln.-PLUS 500 ML BAG OP ×2 (12:59→13:30)
[2022-08-30] MEDS: Lidocaine 1% Pres-Free 5 ML VIAL (13:00)
[2022-08-30] MEDS: Tetracaine 0.5% 4 ML BTL OS (13:00)
[2022-08-30] MEDS: Duovisc Viscoelastic System EACH 1 EACH ×2 (13:01→13:24)
[2022-08-30] MEDS: Phenylephrine/Lidocaine (15/10) MG/ML 1 ML VIAL (13:02)
[2022-08-30] MEDS: Povidone-Iodine Ophth 30 ML BTL (13:02)
[2022-08-30] MEDS: Trypan Blue 0.06% 0.5 ML SYR (13:02)
[2022-08-30 13:50] VITALS: BP 108/93; PULSE 79; RESP 18; TEMP 36.1; O2SAT 97
--- NOTE | 2022-08-30 13:52 | W.PM.DSUDISC ---
Date of service: 08/30/22 Time of Service: 13:52 Discharge Plan Disposition Patient Disposition: Home Discharge Details Attending Provider: Nitish Renteria Primary Care Provider: Rad Yeh. Home Meds and New Rx's Prescriptions: No Action nitroglycerin 0.4 mg tablet, sublingual 0.4 mg Sublingual Q 5 MIN PRN Qty: 15 4RF Patient Comments: 11/06/18 Pt states she has not taken +1month. PG potassium chloride 10 mEq capsule, extended release 10 meq PO DAILY Qty: 90 3RF (DME) pen needle, diabetic [BD Ultra-Fine Juliann Pen Needle] 32 gauge x 5/32 needle See Dose Instructions .ROUTE .MEDSUPPLY Qty: 100 3RF Dose Instruction: As directed Rx Instructions: inject once/day metoprolol succinate 200 mg tablet extended release 24 hr 200 mg PO DAILY Qty: 90 3RF Rx Instructions: prefers to take one tab torsemide 20 mg tablet 20 mg PO BID Qty: 180 3RF valsartan [Diovan] 40 mg tablet 40 mg PO DAILY Qty: 90 3RF ascorbic acid (vitamin C) 500 MG tablet 1,000 mg PO DAILY Hold Instructions: Patient reports getting her vitamin C from multivitamin. aspirin [Adult Low Dose Aspirin] 81 mg tablet,delayed release (DR/EC) 81 mg PO DAILY warfarin 2 mg tablet 2 mg PO DAILY Protocol: Dose Management Condition: Tuesday Dose/Route: 4 mg Instruction: 1 x 4 mg tablet Condition: Tuesday Dose/Route: 2 mg Instruction: 1 x 2 mg tablet Condition: Tuesday Dose/Route: 4 mg Instruction: 1 x 4 mg tablet Condition: Tuesday Dose/Route: 4 mg Instruction: 1 x 4 mg tablet Condition: Dose/Route: 4 mg Instruction: 1 x 4 mg tablet Condition: Tuesday Dose/Route: 4 mg Instruction: 1 x 4 mg tablet Condition: Tuesday Dose/Route: 4 mg Instruction: 1 x 4 mg tablet Protocol Text: Adjustment Start Date: Tuesday08/30/22 INR Value: 1.9 INR Date: 08/30/22 Recheck Date: 09/06/22 insulin degludec [Tresiba FlexTouch U-100] 100 unit/mL (3 mL) insulin pen 32 unit SC QHS Qty: 15 3RF warfarin [Jantoven] 4 mg tablet 4 mg PO QPM Qty: 180 3RF Protocol: Dose Management Condition: Tuesday Dose/Route: 4 mg Instruction: 1 x 4 mg tablet Condition: Tuesday Dose/Route: 2 mg Instruction: 1 x 2 mg tablet Condition: Tuesday Dose/Route: 4 mg Instruction: 1 x 4 mg tablet Condition: Tuesday Dose/Route: 4 mg Instruction: 1 x 4 mg tablet Condition: Dose/Route: 4 mg Instruction: 1 x 4 mg tablet Condition: Tuesday Dose/Route: 4 mg Instruction: 1 x 4 mg tablet Condition: Tuesday Dose/Route: 4 mg Instruction: 1 x 4 mg tablet Protocol Text: Adjustment Start Date: Tuesday08/30/22 INR Value: 1.9 INR Date: 08/30/22 Recheck Date: 09/06/22 Rx Instructions: M, F 2mg All other days 4mg diltiazem HCl 240 mg capsule,extended release 24 hr 240 mg PO DAILY Qty: 90 3RF psyllium husk 0.52 gram Capsule 0.52 g PO QHS artifi.tears(hypromellose)(PF) 0.3 % Drops 1 drp OPHTHALMIC (EYE) HS docusate sodium [Colace] 100 mg Capsule 100 mg PO BID Qty: 60 0RF magnesium oxide 400 mg (241.3 mg magnesium) Tablet 400 mg PO DAILY Qty: 10 0RF Hold Instructions: Home Medication placed on hold at Doctor's office Discharge Instructions Stand Alone Forms: Post-op Topical Cataract, Trace Alarcon (DSU) Discharge Orders Discharge Orders: Discharge Order (Routine); Ordered 08/30/22 Ordered By: Nitish Renteria DS: Diagnosis Discharge Diagnosis (1) Posterior subcapsular age-related cataract of left eye: Status: Resolved (2) Cortical age-related cataract, left eye: Status: Resolved (3) Nuclear age-related cataract, left eye: Status: Resolved
--- NOTE | 2022-08-30 13:52 | W.PM.OP ---
Date of service: 08/30/22 Time of Service: 13:53 Operative Note Operative Note DATE OF PROCEDURE: 08/30/22 PRE-OP DIAGNOSIS: Dense nuclear/cortical/posterior subcapsular cataract, left eye Poor red reflex, left eye, secondary to cataract Poorly dilating pupil, left eye POST-OP DIAGNOSIS: same Severe generalized zonular laxity PROCEDURE: Cataract extraction using phacoemulsification with intraocular lens implant, left eye Capsular staining with VisionBlue Pupillary dilation and iris stabilization with pupillary expansion device SURGEON: Nitish Renteria ANESTHESIA TYPE: Local By Surgeon and MAC Refer to Anesthesia Record PATHOLOGY: none sent COMPLICATIONS: None Patient was transported to: same day Patient's condition: stable Implants: Ozzie Clareon [id number] MOrcher TYpe 15 capsular tension ring Indications: Progressive decreased vision due to cataract, left eye Findings: Severe generalized zonular laxity Procedure Description: CATARACT SURGERY OPERATIVE REPORT PREOPERATIVE DIAGNOSIS: Dense nuclear/cortical/posterior subcapsular cataract, left eye Poorly dilating pupil, left eye Poor red reflex, left eye POSTOPERATIVE DIAGNOSIS: Same OPERATION: Cataract extraction using phacoemulsification with posterior chamber intraocular lens implant, left eye. Insertion of capsular tension ring, Morcher TYpe 15 Blade dilation and iris stabilization with pupillary expansion device IOL: IOL Brake Operator Heavy Duty/Model: Ozzie Clareon [id number] IOL Power: + 22.5 diopters IOL Serial Number: [id number] Optic Diameter: 6.0mm Haptic/Overall Diameter: 13.0mm PHACO INFO: Ozzie Centurion Vision System with OZil and Active Fluidics Cumulative Dispersed Energy (CDE): 35.35 seconds SURGEON: Nitish Renteria MD, DOMINGUEZ ANESTHESIA: Monitored Anesthesia Care (MAC), with local sub-tenon's anesthetic infiltration COMPLICATIONS: None SPECIMENS: None INDICATIONS FOR PROCEDURE: The patient is an 87-year-old lady with history of diminished visual acuity in her left eye secondary to the development of dense nuclear/cortical/posterior subcapsular cataract. Visual acuity measures 28 300 in the presence of dense cataract. The option of cataract surgery was offered to the patient and she felt she was symptomatic enough that she wished to proceed. PROCEDURE: The correct surgical eye was identified and marked as the left eye and the pupil was dilated in the preoperative area using mydriatics and cycloplegics. The dilated pupil size was 4.5 mm. The patient elected to proceed without oral sedation. The patient was brought to the operating room where cardiopulmonary monitoring was instituted and surgical time-out was performed, confirming the correct operative eye and IOL power. Topical anesthesia was administered and ophthalmic povidone-iodine 5% was instilled into the conjunctival fornices. The mariela-ocular area was prepped with Betadine 10% solution and draped in the usual sterile fashion for intraocular surgery, including an aperture drape. A Tegaderm transparent film dressing was cut in half and used to cover the lashes and lid margins. Care was taken to sequester the lashes and lid margins under the Tegaderm dressing. A lid speculum was placed between the lids of the operative eye and the Ozzie COADEOR Revalia operating microscope was maneuvered into position. Christin scissors were then used to make a conjunctival buttonhole approximately 6mm posterior to the limbus in the inferonasal quadrant. Blunt dissection was carried out to expose bare sclera, and a blunt-tipped sub-tenon?s anesthesia cannula was introduced and passed posteriorly along the globe where non-preserved plain lidocaine was injected into posterior sub-Tenon?s space. A sideport knife was used to make a paracentesis port. VisionBlue was injected into the anterior chamber and allowed to sit for approximately 30 seconds. Intraocular phenylephrine/lidocaine was injected into the anterior chamber. The anterior chamber was then filled with viscoelastic. Viscoat was used initially. A keratome knife was used construct a two-plane clear corneal tunnel extending 2.0mm into clear cornea. A 7.0mm Malyugin RIng was then inserted into the pupillary space and engaged with a Kuglen hook. A flap was raised on the anterior capsule and capsulorhexis forceps were used to complete a continuous curvilinear capsulorhexis of 5.0 mm. Significant anterior capsular wrinkling was noted with a thin anterior capsule. Cataract was noted to be quite mobile. Balanced salt solution was then used to perform cortical cleaving hydrodissection and nuclear hydrodelineation until the lens could be freely rotated within the capsular bag. The lens nucleus was then disassembled and removed within the capsular bag and iris plane using phacoemulsification. A single dense linear trench was sculpted in the central nucleus, which was then rotated 180 degrees and the trench continued. Viscoat was used to fill the anterior chamber and nuclear splitters were then used to crack the nucleus into 2 halves. First half was then some chopped into multiple small fragments, which were then emulsified at the iris plane. The capsular bag was quite mobile and unstable. Additional Viscoat was used to fill the capsular bag in the equatorial region. A Morcher Type 15 capsular tension ring was then inserted into the capsular bag without difficulty, for added stability. The second nuclear half was then subchopped into multiple fragments which were then emulsified at the iris plane. Residual cortical material was removed using the irrigation/aspiration handpiece. Cortex was challenging to remove due to the presence of a capsular tension ring. A tangential approach was used, but there was some subincisional cortex which could not be safely removed. The capsular bag was then inflated and the anterior chamber deepened with viscoelastic. The lens implant described above was inserted into the capsular bag using the Ozzie Autonome Injector. A Kuglen hook was used to dial the IOL into position.The Malyugin Ring was then removed in the reverse order of its insertion. Residual viscoelastic was then removed first from posterior to the IOL, then from the anterior chamber using the I/A handpiece. The lens implant was noted to center nicely within the capsular bag. The incisions were stromally hydrated, and the anterior chamber was reformed using BSS. Then 0.5cc of moxifloxacin 1.0mg/ml were injected into the capsular bag and anterior chamber. The incisions were checked with a Weck spear and found to be secure. Several drops of ophthalmic povidone-iodine 5% were then applied to the eye followed by two drops of Imprimis combination prednisolone/moxifloxacin/nepafenac solution. The drapes were removed and a clear plastic protective eye shield was placed over the eye. The patient was then returned to [facility] Day Surgery in stable condition.
--- NOTE | 2022-08-30 14:01 | W.ANESPOSTOP ---
Postoperative Evaluation Date, Time and Location Date Performed: 08/30/22 Time Performed: 14:01 Patient Location: Day Surgery Unit Vital Signs Most Recent Imported Vital Signs: Most Recent Vital Signs Temp Pulse Resp BP Pulse Ox 36.1 C L 79 18 108/93 H 97 08/30/22 13:50 08/30/22 13:50 08/30/22 13:50 08/30/22 13:50 08/30/22 13:50 Pain Score Most Recent Pain Score: Most Recent Pain Score Pain Level 0 08/30/22 13:50 Assessment Mental Status: Awake (Alert & Oriented to Patient Baseline) Airway and Respiratory Function: Patent airway with normal (patient baseline) respiratory exam Cardiovascular Function: Hemodynamically Stable Hydration Status: Adequately Hydrated Nausea & Vomiting: No Nausea or Vomiting Pain: Pt. Denies Any Pain Peripheral Nerve Block: Patient did not receive a nerve block
== END 2022-08-30 14:26 | disposition home or self-care (01) ==
PROVIDERS: PCP Family Medicine; Visit Provider Ophthalmology
PROC: (CPT 66984; principal; 2022-08-30 12:00)
DX: H25.042 Posterior subcapsular polar age-related cataract, left eye (principal); H25.012 Cortical age-related cataract, left eye; H25.12 Age-related nuclear cataract, left eye; I10 Essential (primary) hypertension; E66.01 Morbid (severe) obesity due to excess calories; Z79.01 Long term (current) use of anticoagulants
CPT/HCPCS: 66984; V2632

== ENCOUNTER 2022-09-10 08:56 | Day surgery (SDC) | payer MEDICARE, SELFPAY ==
[2022-09-10 09:22] VITALS: BP 147/77; PULSE 60; RESP 16; TEMP 36.6; O2SAT 97
--- NOTE | 2022-09-10 09:22 | ANES.PREOP_ITS ---
General Info Date of Service Date Performed: 09/10/22 Height: 5 ft Weight: 83.6 kg Body Mass Index (BMI): 35.9 Surgical Procedure: Operation Date: 09/10/22 11:40 Proposed Procedure Side Surgeon p Cataract Extraction with IOL Implant Right Nitish Renteria MD Meds Allergies and Home Medications Allergies Allergy/AdvReac Type Severity Reaction Status Date / Time Tetanus Vaccines and Toxoid Allergy Intermediate Verified 09/10/22 09:16 doxycycline AdvReac Severe GI UPSET Verified 09/10/22 09:16 verapamil AdvReac Severe dizziness Verified 09/10/22 09:16 doxazosin mesylate AdvReac Intermediate muscle Verified 09/10/22 09:16 [From Cardura] aches atenolol AdvReac Mild leg pain Verified 09/10/22 09:16 Home Medication Medication Instructions Recorded ascorbic acid (vitamin C) 500 mg 1,000 mg PO DAILY 07/15/12 tablet aspirin 81 mg tablet,delayed 81 mg PO DAILY 06/20/19 release (Adult Low Dose Aspirin) docusate sodium 100 mg capsule 100 mg PO BID #60 caps 10/14/19 (Colace) magnesium oxide 400 mg (241.3 mg 400 mg PO DAILY #10 tabs 10/14/19 magnesium) tablet nitroglycerin 0.4 mg sublingual 0.4 mg sublingual Q 5 MIN PRN #15 06/10/21 tablet tab-caps potassium chloride 10 mEq 10 meq PO DAILY #90 caps 12/17/21 capsule,extended release artifi.tears(hypromellose)(PF) 0.3 1 drp ophthalmic (eye) HS 03/02/22 % eye drops psyllium husk 0.52 gram capsule 0.52 g PO QHS 03/02/22 warfarin 2 mg tablet 2 mg PO DAILY 03/15/22 insulin degludec 100 unit/mL (3 32 unit (0.32 mL) subcut QHS #15 mL 05/07/22 mL) subcutaneous pen (Tresiba FlexTouch U-100 insulin) metoprolol succinate 200 mg 200 mg PO DAILY #90 tabs 06/01/22 tablet,extended release 24 hr torsemide 20 mg tablet 20 mg PO BID #180 tabs 06/01/22 valsartan 40 mg tablet (Diovan) 40 mg PO DAILY #90 tabs 06/01/22 warfarin 4 mg tablet (Jantoven) 4 mg PO QPM #180 tabs 06/19/22 diltiazem HCl 240 mg capsule,24 240 mg PO DAILY #90 caps 06/28/22 hr,extended release pen needle, diabetic 32 gauge x #100 ea 08/17/22 (BD Ultra-Fine Juliann Pen Needle) Current Visit Medications: Current Medications Generic Name Dose Route Start Last Admin Trade Name Freq PRN Reason Stop Dose Admin Acetaminophen 1,000 mg 09/10/22 06:00 Acetaminophen 500 Mg Tab PO 10/10/22 05:59 Q4H PRN PRN Balanced Salt Solution 500 ml 09/10/22 06:00 Balanced Salt Soln.-Plus 500 Ml Bag OP 10/10/22 05:59 DIRECTED [facility] Miscellaneous Medication 0 ml 09/10/22 06:00 Prednisolone 1%, Moxifloxacin 0.5%, Nepafenac 0.1% 5ml Btl OD 10/10/22 05:59 DIRECTED [facility] Miscellaneous Medication 0 ml 09/10/22 06:00 Tropicam./Phenyleph. (1/2.5%) 5 Ml Btl OD 10/10/22 05:59 DIRECTED K[facility] Tetracaine HCl 0 ml 09/10/22 06:00 Tetracaine 0.5% 4 Ml Btl OD 10/10/22 05:59 DIRECTED KATHY PFSH Active Problems Active Problems: Problem Status Onset Code Posterior subcapsular age-related cataract, right eye H25.041 Cortical age-related cataract, right eye H25.011 Nuclear age-related cataract, right eye H25.11 Posterior subcapsular age-related cataract of left eye H25.042 Cortical age-related cataract, left eye H25.012 Nuclear age-related cataract, left eye H25.12 Hyperlipidemia E78.5 Mild obstructive sleep apnea 11/17/15 G47.33 Chronic anticoagulation Z79.01 Hypertension I10 CHF (congestive heart failure) I50.9 Palliative care patient Z51.5 Refusal of blood transfusions as patient is Oriental orthodox Z53.1 Chronic HFrEF (heart failure with reduced ejection fraction) I50.22 Ambulatory dysfunction R26.2 Goals of care, counseling/discussion Z71.89 Sensorineural hearing loss of both ears H90.3 Dyspnea R06.00 Fatigue R53.83 Elevated troponin R77.8 Atrial flutter I48.92 Weakness generalized R53.1 Edema R60.9 Morbid obesity E66.01 Open wound of both lower extremities S81.801A, S81.802A History of stroke in adulthood Z86.73 CKD stage 3 due to type 2 diabetes mellitus E11.22, N18.30 Poorly controlled type 2 diabetes mellitus E11.65 Advanced care planning/counseling discussion Z71.89 Medical History Medical History Acute CVA (cerebrovascular accident) per pt. summer 2021 Acute deep vein thrombosis (DVT) of right lower extremity Acute on chronic systolic heart failure All medications reviewed Arthritis ASCVD (arteriosclerotic cardiovascular disease) (04/22/15) [place] with out of hosp cardiac arrest LAD stent, LVEF 35% Atrial fibrillation (05/27/11) paroxysmal Oct 2009 Atrial fibrillation with rapid ventricular response Carpal tunnel syndrome on both sides s/p Left ECTR 01/30/2020 Chronic low back pain CKD (chronic kidney disease), stage II on cusp of stage 3 Complementary medicine Constipation Counseling on health promotion and disease prevention COVID-19 ruled out by clinical criteria Diabetes mellitus Diabetes mellitus out of control DNI (do not intubate) DNR (do not resuscitate) Eructation Essential hypertension (01/04/13) echo 2007 LVH uncontrolled BP (neg w/u for pheo) Excessive vitamin intake her naturopathic remedies have many times more than MANAGER FOOD of vitamins Foot drop, left Fracture of head of right femur s/p R Anterior DARIEL (10/04/19) GERD (gastroesophageal reflux disease) Hearing loss Heart failure with reduced ejection fraction Hypertensive retinopathy Hyponatremia Impaired left ventricular function [place]05[place]2019[place] [facility] [place] Insomnia Iron deficiency anemia Leg length discrepancy Lives alone Low back pain Lumbar stenosis Nail dystrophy Noncompliance with medication regimen (09/26/12) NSTEMI (non-ST elevated myocardial infarction) ([place]05/2019[place] [facility] [place] in left thigh 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 Pedal edema POLST (Physician Orders for Life-Sustaining Treatment) Polypharmacy takes both allopathic and naturopathic meds Postoperative anemia due to acute blood loss Prerenal azotemia Renal insufficiency Retinopathy, background, nonproliferative, mild (01/01/16) Right arm pain Right groin pain Right knee pain Right rotator cuff tear Spinal stenosis at L4-L5 level Tachycardia Tachycardia Type II diabetes mellitus with complication, uncontrolled (05/14/14) UTI (urinary tract infection) Vaccine counseling she thinks her 03/17 TIA/CVA was due COVID-19 vaccine Surgical History Surgical History History of appendectomy History of carpal tunnel surgery of left wrist (01/30/20) History of right hip replacement Tobacco Smoking/Tobacco Use Status: Never Second hand exposure: No (late smoked heavily, no current exposure) Alcohol Alcohol Intake: current Alcohol intake frequency: holidays/special occasions only Alcohol type: wine Substance Use Substance use: Never Substance use type: does not use Vital Signs and Lab Results Vital Signs Comment Vital Signs Comment:: Temp Pulse Resp BP Pulse Ox 36.6 C 60 16 147/77 H 97 09/10/22 09:22 09/10/22 09:22 09/10/22 09:22 09/10/22 09:22 09/10/22 09:22 Lab Results Blood Type / Crossmatch: No Data to Display Complete Blood Count: No Data to Display Complete Metabolic Panel: Hemoglobin A1c 9.5 % (<5.7) H 08/17/22 10:27 Liver Function Panel: No Data to Display Coagulation Panel: INR International Normalized Ratio 2.4 (0.9-1.1) H 09/06/22 15: 16 Cardiac Panel: No Data to Display Arterial Blood Gas: No Data to Display Venous Blood Gas: No Data to Display Pancreas Panel: No Data to Display Thyroid Panel: No Data to Display Infectious Disease: No Data to Display Blood Cultures: No Data to Display Toxicology Panel: No Data to Display Imaging and Studies Imaging and Studies Study information below may be from another EMR and interpreted by another provider. Please see original notes in EMR for more complete details. EKG Summary: Conclusion Atrial flutter with predominant 3:1 AV block...A-rate 258, multiple Ps Ventricular premature complex...V complex w/ short R-R interval Left bundle branch block...QRSd>120, broad/notched R Physician: no stemi, negative for sgarbossa 04/06/22 Echocardiogram Summary: Patient had an EF of 40-45% on 05/07/2020. Echocardiography today LV normal, wall thickness is mildly increased. LV EF is 36 %. LV systolic fxn moderately decreased. Wall motion abnormalities in the RCA territory. (per hospitalist note 03/04/22) Pulmonary Function Summary: IMPRESSION: While there is no evidence of obstructive airways disease, there is significant bronchodilator response. This may represent simply an effort related phenomenon but it can also outline early developing obstructive lung disease. If the diagnosis of asthma is in question, proceeding with Methacholine challenge testing may prove to be useful. 06/16/17 Anesthesia Assessment and Plan Anesthesia History Personal History: No History of Anesthesia Complications Family History: No Family History of Anesthesia Complications Exercise Tolerance Exercise Tolerance: Metabolic Equivalents<4 Pertinent Negatives Pertinent Negatives: No Major Cardiovascular Symptoms or Complaints and No Major Pulmonary Symptoms or Complaints Cardiac & Pulmonary Exam Cardiac Exam: Normal S1/S2 Heart Sounds Pulmonary Exam: Clear Bilateral Breath Sounds Implantable Cardiac Device Does patient have a Pacemaker or an ICD?: No Airway Exam Known Difficult Airway: No Mallampati Class: 2 Mouth Opening: Normal (> 3cm) Thyromental Distance: Greater than 3 cm Neck Range of Motion: Full ROM Neck Circumference: Normal Teeth Condition: Normal Dentition ASA Classification ASA Score: ASA 3 Emergency Case?: No NPO Status NPO Status: NPO Clears >2 hours, Solids >8 hours Anesthesia Plan Resuscitation Status: Full Code Anesthesia Technique: MAC Anesthesia Airway Planned: Natural Airway Monitors Used: Standard Monitors Preoperative Comments:: Blood sugar 208
[2022-09-10] MEDS: Tropicam./Phenyleph. (1/2.5%) 5 ML BTL OD ×3 (09:39→09:54)
[2022-09-10 10:33] VITALS: BMI 35.9
[2022-09-10] MEDS: Povidone-Iodine Ophth 30 ML BTL (11:00)
[2022-09-10] MEDS: Tetracaine 0.5% 4 ML BTL OD (11:00)
[2022-09-10] MEDS: Balanced Salt Soln.-PLUS 500 ML BAG OP (11:04)
[2022-09-10] MEDS: Lidocaine 1% Pres-Free 5 ML VIAL (11:05)
[2022-09-10] MEDS: Phenylephrine/Lidocaine (15/10) MG/ML 1 ML VIAL (11:05)
[2022-09-10] MEDS: Duovisc Viscoelastic System EACH 1 EACH (11:17)
[2022-09-10] MEDS: Trypan Blue 0.06% 0.5 ML SYR (11:19)
[2022-09-10 11:43] VITALS: BP 148/77; PULSE 67; RESP 16; TEMP 36.2; O2SAT 98
--- NOTE | 2022-09-10 11:45 | ROE_ITS ---
Date of service: 09/10/22 Time of Service: 11:45 Operative Note Operative Note DATE OF PROCEDURE: 09/10/22 PRE-OP DIAGNOSIS: Dense nuclear/cortical/posterior subcapsular cataract, right eye Poor red reflex, right eye Poorly dilating pupil, right eye POST-OP DIAGNOSIS: same PROCEDURE: Cataract extraction using phacoemulsification with intraocular lens implant, right eye Capsular staining with VisionBlue Pupillary dilation and iris stabilization with pupillary expansion device SURGEON: Nitish Renteria ANESTHESIA TYPE: Local By Surgeon and MAC Refer to Anesthesia Record ESTIMATED BLOOD LOSS: 0 PATHOLOGY: none sent COMPLICATIONS: None Patient was transported to: same day Patient's condition: stable Implants: Ozzie Clareon [id number] Morcher Type 15 capsular tension ring Indications: Progressive decreased vision due to cataract, right eye Procedure Description: CATARACT SURGERY OPERATIVE REPORT PREOPERATIVE DIAGNOSIS: Dense nuclear/cortical/posterior subcapsular cataract, Right eye poor red reflex, right eye Poorly dilating pupil, right eye POSTOPERATIVE DIAGNOSIS: Same OPERATION: Cataract extraction using phacoemulsification with posterior chamber intraocular lens implant, right eye. IOL: IOL Breaker Machine Operator/Model: Ozzie Clareon [id number] IOL Power: + 24.0 diopters IOL Serial Number: [id number] Optic Diameter: 6.0mm Haptic/Overall Diameter: 13.0mm PHACO INFO: Ozzie Centurion Vision System with OZil and Active Fluidics Cumulative Dispersed Energy (CDE): 30.76 seconds SURGEON: Nitish Renteria MD, DOMINGUEZ ANESTHESIA: Monitored Anesthesia Care (MAC), with local sub-tenon's anesthetic infiltration COMPLICATIONS: None SPECIMENS: None INDICATIONS FOR PROCEDURE: The patient is an 87-year-old lady with history of diminished visual acuity in both eyes secondary to the development of dense bilateral cataracts. She has already undergone cataract surgery in the left eye and is doing well postoperatively. Surgery was complex, requiring pupillary expansion device, capsular staining, capsular tension ring, and nuclear splitters. She now presents for cataract surgery in the right eye. See office notes for detailed information. PROCEDURE: The correct surgical eye was identified and marked as the right eye and the pupil was dilated in the preoperative area using mydriatics and cycloplegics. The dilated pupil size was 4.0 mm. The patient elected to proceed without oral sedation. The patient was brought to the operating room where cardiopulmonary monitoring was instituted and surgical time-out was performed, confirming the correct operative eye and IOL power. Topical anesthesia was administered and ophthalmic povidone-iodine 5% was instilled into the conjunctival fornices. The mariela-ocular area was prepped with Betadine 10% solution and draped in the usual sterile fashion for intraocular surgery, including an aperture drape. A Tegaderm transparent film dressing was cut in half and used to cover the lashes and lid margins. Care was taken to sequester the lashes and lid margins under the Tegaderm dressing. A lid speculum was placed between the lids of the operative eye and the Sonia-River operating microscope was maneuvered into position. Christin scissors were then used to make a conjunctival buttonhole approximately 6mm posterior to the limbus in the inferonasal quadrant. Blunt dissection was carried out to expose bare sclera, and a blunt-tipped sub-tenon?s anesthesia cannula was introduced and passed posteriorly along the globe where non- preserved plain lidocaine was injected into posterior sub-Tenon?s space. A sideport knife was used to make a paracentesis port. Intraocular phenylephrine/lidocaine was injected into the anterior chamber. No additional pupillary dilation occurred. VisionBlue was then injected into the anterior chamber and allowed to sit for approximately 30 seconds, before being irrigated out with balanced salt solution. The anterior chamber was then filled with viscoelastic. A keratome knife was used to construct a two--plane clear corneal tunnel extending 2.0mm into clear cornea. A 6.25 mm pupillary expansion device was then inserted into the pupillary space and engaged with a Kuglen hook. A flap was raised on the anterior capsule and capsulorhexis forceps were used to complete a continuous curvilinear capsulorhexis of 4.8 mm. The capsule was noted to be extremely thin with generalized zonular laxity, significant. Balanced salt solution was then used to perform cortical cleaving hydrodissection and nuclear hydrodelineation until the lens could be freely rotated within the capsular bag. The lens nucleus was then disassembled and removed within the capsular bag and iris plane using phacoemulsification. A single deep trench was sculpted into the central nucleus, and then rotated 180 degrees, where the trench was continued. Nuclear splitters were then used to crack the nucleus into 2 halves under Viscoat protection. Each half was then carefully subtyped into multiple fragments and emulsified at the iris plane under dispersive viscoelastic protection. Residual cortical material was removed using the I/A handpiece. The posterior capsule was carefully polished to remove as much residual lens epithelial cells as safely possible. There was some dense central plaque which could not be safely removed, and the posterior capsule was extremely thin and diaphenous. The capsular bag was then inflated and the anterior chamber deepened with cohesive viscoelastic. A Morcher Type 15 capsular tension ring was then inserted into the capsular bag without difficulty. The lens implant described above was inserted into the capsular bag using the Ozzie Autonome Injector. A Kuglen hook was used to dial the IOL into position. The pupillary expansion device was then removed in the reverse order of its insertion. Residual viscoelastic was then removed first from posterior to the IOL, then from the anterior chamber using the I/A handpiece. The lens implant was noted to center nicely within the capsular bag. The incisions were stromally hydrated, and the anterior chamber was reformed using BSS. Then 0.5cc of moxifloxacin 1.0mg/ml were injected into the capsular bag and anterior chamber. The incisions were checked with a Weck spear and found to be secure. Several drops of ophthalmic povidone-iodine 5% were then applied to the eye followed by two drops of Imprimis combination prednisolone/moxifloxacin/nepafenac solution. The drapes were removed and a clear plastic protective eye shield was placed over the eye. The patient was then returned to Same Day Surgery in stable condition.
--- NOTE | 2022-09-10 11:45 | W.PM.DSUDISC ---
Date of service: 09/10/22 Time of Service: 11:45 Discharge Plan Disposition Patient Disposition: Home Discharge Details Attending Provider: Nitish Renteria Primary Care Provider: Rad Yeh. Home Meds and New Rx's Prescriptions: No Action nitroglycerin 0.4 mg tablet, sublingual 0.4 mg Sublingual Q 5 MIN PRN Qty: 15 4RF Patient Comments: 11/06/18 Pt states she has not taken +1month. PG potassium chloride 10 mEq capsule, extended release 10 meq PO DAILY Qty: 90 3RF (DME) pen needle, diabetic [BD Ultra-Fine Juliann Pen Needle] 32 gauge x 5/32 needle See Dose Instructions .ROUTE .MEDSUPPLY Qty: 100 3RF Dose Instruction: As directed Rx Instructions: inject once/day metoprolol succinate 200 mg tablet extended release 24 hr 200 mg PO DAILY Qty: 90 3RF Rx Instructions: prefers to take one tab torsemide 20 mg tablet 20 mg PO BID Qty: 180 3RF valsartan [Diovan] 40 mg tablet 40 mg PO DAILY Qty: 90 3RF ascorbic acid (vitamin C) 500 MG tablet 1,000 mg PO DAILY Hold Instructions: Patient reports getting her vitamin C from multivitamin. aspirin [Adult Low Dose Aspirin] 81 mg tablet,delayed release (DR/EC) 81 mg PO DAILY warfarin 2 mg tablet 2 mg PO DAILY Protocol: Dose Management Condition: Tuesday Dose/Route: 4 mg Instruction: 1 x 4 mg tablet Condition: Tuesday Dose/Route: 2 mg Instruction: 1 x 2 mg tablet Condition: Tuesday Dose/Route: 4 mg Instruction: 1 x 4 mg tablet Condition: Tuesday Dose/Route: 4 mg Instruction: 1 x 4 mg tablet Condition: Dose/Route: 4 mg Instruction: 1 x 4 mg tablet Condition: Tuesday Dose/Route: 4 mg Instruction: 1 x 4 mg tablet Condition: Tuesday Dose/Route: 4 mg Instruction: 1 x 4 mg tablet Protocol Text: Adjustment Start Date: Tuesday09/06/22 INR Value: 2.4 INR Date: 09/06/22 Recheck Date: 09/13/22 insulin degludec [Tresiba FlexTouch U-100] 100 unit/mL (3 mL) insulin pen 32 unit SC QHS Qty: 15 3RF warfarin [Jantoven] 4 mg tablet 4 mg PO QPM Qty: 180 3RF Protocol: Dose Management Condition: Tuesday Dose/Route: 4 mg Instruction: 1 x 4 mg tablet Condition: Tuesday Dose/Route: 2 mg Instruction: 1 x 2 mg tablet Condition: Tuesday Dose/Route: 4 mg Instruction: 1 x 4 mg tablet Condition: Tuesday Dose/Route: 4 mg Instruction: 1 x 4 mg tablet Condition: Dose/Route: 4 mg Instruction: 1 x 4 mg tablet Condition: Tuesday Dose/Route: 4 mg Instruction: 1 x 4 mg tablet Condition: Tuesday Dose/Route: 4 mg Instruction: 1 x 4 mg tablet Protocol Text: Adjustment Start Date: Tuesday09/06/22 INR Value: 2.4 INR Date: 09/06/22 Recheck Date: 09/13/22 Rx Instructions: M, F 2mg All other days 4mg diltiazem HCl 240 mg capsule,extended release 24 hr 240 mg PO DAILY Qty: 90 3RF psyllium husk 0.52 gram Capsule 0.52 g PO QHS artifi.tears(hypromellose)(PF) 0.3 % Drops 1 drp OPHTHALMIC (EYE) HS docusate sodium [Colace] 100 mg Capsule 100 mg PO BID Qty: 60 0RF magnesium oxide 400 mg (241.3 mg magnesium) Tablet 400 mg PO DAILY Qty: 10 0RF Hold Instructions: Home Medication placed on hold at Doctor's office Discharge Instructions Stand Alone Forms: Post-op Topical Cataract, Trace Alarcon (DSU) Discharge Orders Discharge Orders: Discharge Order (Routine); Ordered 09/10/22 Ordered By: Nitish Renteria DS: Diagnosis Discharge Diagnosis (1) Posterior subcapsular age-related cataract, right eye: Status: Resolved (2) Cortical age-related cataract, right eye: Status: Resolved (3) Nuclear age-related cataract, right eye: Status: Resolved
--- NOTE | 2022-09-10 12:06 | W.ANESPOSTOP ---
Postoperative Evaluation Date, Time and Location Date Performed: 09/10/22 Time Performed: 11:55 Patient Location: Day Surgery Unit Vital Signs Most Recent Imported Vital Signs: Most Recent Vital Signs Temp Pulse Resp BP Pulse Ox 36.2 C L 67 16 148/77 H 98 09/10/22 11:43 09/10/22 11:43 09/10/22 11:43 09/10/22 11:43 09/10/22 11:43 Pain Score Most Recent Pain Score: Most Recent Pain Score Pain Level 0 09/10/22 11:43 Assessment Mental Status: Awake (Alert & Oriented to Patient Baseline) Airway and Respiratory Function: Patent airway with normal (patient baseline) respiratory exam Cardiovascular Function: Hemodynamically Stable Hydration Status: Adequately Hydrated Nausea & Vomiting: No Nausea or Vomiting Pain: Pt. Denies Any Pain Peripheral Nerve Block: Patient did not receive a nerve block
== END 2022-09-10 12:08 | disposition home or self-care (01) ==
LOC: SUR 08:56
PROVIDERS: PCP Family Medicine; Visit Provider Ophthalmology
PROC: (CPT 66984; principal; 2022-09-10 11:30)
DX: H25.041 Posterior subcapsular polar age-related cataract, right eye (principal); H25.011 Cortical age-related cataract, right eye; H25.11 Age-related nuclear cataract, right eye; I10 Essential (primary) hypertension; Z98.42 Cataract extraction status, left eye
CPT/HCPCS: 66984; V2632

== ENCOUNTER 2022-11-18 10:50 | Outpatient (CLI) | payer MEDICARE, SELFPAY ==
[2022-11-18 13:01] LABS: Potassium 3.8 mmol/L (3.5-5.1)
[2022-11-18 13:38] LABS: Hemoglobin A1C 9.2 % (<5.7)
== END 2022-11-18 10:51 | disposition home or self-care (01) ==
LOC: LOS 10:51
PROVIDERS: PCP Family Medicine; Referring Provider Family Medicine; Visit Provider Family Medicine
DX: I10 Essential (primary) hypertension (principal); E11.51 Type 2 diabetes mellitus with diabetic peripheral angiopathy without gangrene
CPT/HCPCS: 36415; 83036; 84132

== ENCOUNTER 2022-12-23 14:59 | Outpatient (CLI) | payer MEDICARE, SELFPAY ==
--- NOTE | 2022-12-23 09:15 | DI.RAD_ITS ---
Exam(s) XR HIP RT COMPLETE AP PELVIS EXAM: XR HIP RT COMPLETE AP PELVIS CLINICAL HISTORY: RIGHT HIP PAIN. TECHNIQUE: 2D digital imaging was performed. COMPARISON: CR XR HIP RT COMPLETE AP PELVIS from 11/05/2019 FINDINGS: Two views. Stable position alignment of the components of the right hip prosthesis. No fracture or loosening ev ident. Advanced degenerative changes again noted in the opposite-left hip. IMPRESSION: Stable satisfactory appearance of right hip prosthesis. DATA REPOSITORY: RADIATION DOSE DELIVERED:
== END 2022-12-23 15:00 | disposition home or self-care (01) ==
LOC: DIORS 14:59
PROVIDERS: PCP Family Medicine; Referring Provider Family Medicine; Visit Provider Physician Assistant
DX: S72.051A Unspecified fracture of head of right femur, initial encounter for closed fracture (principal); M70.61 Trochanteric bursitis, right hip; M76.891 Other specified enthesopathies of right lower limb, excluding foot; S76.011A Strain of muscle, fascia and tendon of right hip, initial encounter; X58.XXXA Exposure to other specified factors, initial encounter; Z96.641 Presence of right artificial hip joint
CPT/HCPCS: 20610; 73502; J1040

== ENCOUNTER 2022-12-31 09:15 | Inpatient (IN) | payer MEDICARE, SELFPAY ==
[2022-12-31] VITALS (55 sets, daily range): BP systolic 128–181; BP diastolic 73–134; PULSE 59–120; RESP 12–37; TEMP 36–36.9; O2SAT 94–100
--- NOTE | 2022-12-31 09:00 | RT.EKG_ITS ---
APPROVED REPORT Exam: Resting ECG Reason for Exam: chest pain Patient Location: E HR:105 bpm ECG Measurements Heart Rate 105 AXIS NV [id number] P [id number] QRSd 132 QRS -56 QT 376 T 114 QTc 497 Conclusion Atrial fibrillation...V-rate 74-138, irreg A-activity Left bundle branch block...QRSd>120, broad/notched R No ST segment or T wave abnormalities to suggest occlusive MO
[2022-12-31] MEDS: Aspirin 81 MG CHEW 324 MG CH (09:20)
--- NOTE | 2022-12-31 09:34 | ED.GENADUL_ITS ---
Discharge Plan Disposition Patient Disposition: Admit to [facility] Condition: Good Discharge Details Chief Complaint: Chest Pain Clinical Impression: Unstable angina, HTN (hypertension), CHF (congestive heart failure), Acute coronary syndrome, CKD (chronic kidney disease) Primary Care Provider: Rad Yeh ED Provider: Teressa Ahmadi Home Meds and New Rx's Prescriptions: No Action potassium chloride 10 mEq capsule, extended release 10 meq PO DAILY Qty: 90 3RF (DME) pen needle, diabetic [BD Ultra-Fine Juliann Pen Needle] 32 gauge x 5/32 needle See Dose Instructions .ROUTE .MEDSUPPLY Qty: 100 3RF Dose Instruction: As directed Rx Instructions: inject once/day metoprolol succinate 200 mg tablet extended release 24 hr 200 mg PO DAILY Qty: 90 3RF Rx Instructions: prefers to take one tab torsemide 20 mg tablet 20 mg PO BID Qty: 180 3RF valsartan [Diovan] 40 mg tablet 40 mg PO DAILY Qty: 90 3RF nitroglycerin 0.4 mg tablet, sublingual 0.4 mg Sublingual Q 5 MIN PRN Qty: 25 0RF Patient Comments: 11/06/18 Pt states she has not taken +1month. PG ketoconazole 2 % cream 1 applic topical DAILY 90 Days Qty: 60 0RF Rx Instructions: Apply to toenails once daily ascorbic acid (vitamin C) 500 MG tablet 1,000 mg PO DAILY Hold Instructions: Patient reports getting her vitamin C from multivitamin. aspirin [Adult Low Dose Aspirin] 81 mg tablet,delayed release (DR/EC) 81 mg PO DAILY warfarin 2 mg tablet 2 mg PO DAILY Protocol: Dose Management Condition: Tuesday Dose/Route: 4 mg Instruction: 1 x 4 mg tablet Condition: Tuesday Dose/Route: 4 mg Instruction: 1 x 4 mg tablet Condition: Tuesday Dose/Route: 4 mg Instruction: 1 x 4 mg tablet Condition: Tuesday Dose/Route: 4 mg Instruction: 1 x 4 mg tablet Condition: Dose/Route: 4 mg Instruction: 1 x 4 mg tablet Condition: Tuesday Dose/Route: 4 mg Instruction: 1 x 4 mg tablet Condition: Tuesday Dose/Route: 4 mg Instruction: 1 x 4 mg tablet Protocol Text: Adjustment Start Date: Tuesday12/27/22 INR Value: 2.2 INR Date: 12/27/22 Recheck Date: 01/10/23 warfarin [Jantoven] 4 mg tablet 4 mg PO QPM Qty: 180 3RF Protocol: Dose Management Condition: Tuesday Dose/Route: 4 mg Instruction: 1 x 4 mg tablet Condition: Tuesday Dose/Route: 4 mg Instruction: 1 x 4 mg tablet Condition: Tuesday Dose/Route: 4 mg Instruction: 1 x 4 mg tablet Condition: Tuesday Dose/Route: 4 mg Instruction: 1 x 4 mg tablet Condition: Dose/Route: 4 mg Instruction: 1 x 4 mg tablet Condition: Tuesday Dose/Route: 4 mg Instruction: 1 x 4 mg tablet Condition: Tuesday Dose/Route: 4 mg Instruction: 1 x 4 mg tablet Protocol Text: Adjustment Start Date: Tuesday12/27/22 INR Value: 2.2 INR Date: 12/27/22 Recheck Date: 01/10/23 Rx Instructions: M, F 2mg All other days 4mg diltiazem HCl 240 mg capsule,extended release 24 hr 240 mg PO DAILY Qty: 90 3RF metolazone 2.5 mg tablet 2.5 mg PO Q OTHER DAY Qty: 10 0RF Rx Instructions: take 30 mins before morning torsemide dose (DME) Dexcom G6 Banjo Repairer Misc See Rx Instructions .MEDSUPPLY Qty: 1 0RF Rx Instructions: As directed (DME) Dexcom G6 Sensor Device See Rx Instructions .MEDSUPPLY Qty: 3 11RF Rx Instructions: As directed insulin degludec [Tresiba FlexTouch U-100] 100 unit/mL (3 mL) insulin pen 32 unit SC QHS Qty: 15 3RF psyllium husk 0.52 gram Capsule 0.52 g PO QHS artifi.tears(hypromellose)(PF) 0.3 % Drops 1 drp OPHTHALMIC (EYE) HS docusate sodium [Colace] 100 mg Capsule 100 mg PO BID Qty: 60 0RF magnesium oxide 400 mg (241.3 mg magnesium) Tablet 400 mg PO DAILY Qty: 10 0RF Hold Instructions: Home Medication placed on hold at Doctor's office Medical Decision Making 87yo F with HTN, HLD, NH, CAD s/p stent, HFrEF, DM, CKD3, presenting with chest pain. History from patient and EMS. Yesterday and today awoke with dull left sided chest pain which resolved after home nitro; aside from this has not used nitro in over a year. Chest pain free on arrival. Vital signs and physical exam reassuring. Given 325 of ASA on arrival, home diltazem and metoprool. EKG afib, LBBB, no ST segment or T wave abnormalities to suggest occlusive NH; does have two different QRS morphologies. POCT cardiac ultrasound with no large effusion. CXR independently reviewed, no pneumonia or pneumothorax on my view, agree with radiology read below. Labs reviewed as below, CBC reassuring, CMP wtih Cr 1.9 (at baseline), BNP 2255 (typically [id number] on [facility] record review, mildly increased from baseline), initial troponin 141 (baseline trop appears to be low 200's on [facility] record review). Repeat tropnin 145. Workup overall reassuring however symptoms consistent with unstable angina/acute cornary syndrome. Discussed with [facility] [place]; no capacity at this time but anticipated availability tomorrow, accepted for tomorrow under Dr. Hallman. Would hold off on plavix or heparin gtt for now; advised starting heparin if chest pain recurred. Discussed with hosptialist Dr. Finley and patient accepted to medicine service for further workup and management. Awaiting transfer to the floor. Imaging Data Radiologic Study: Imaging: X-Ray Radiologist's impression: IMPRESSION: No acute? findings. Lab Data Lab results reviewed: Yes I reviewed the patient's lab results. Labs: Laboratory Tests Range/Units 12/31/22 12/31/22 09:40 09:40 WBC (4.4-10.8) 10^3/uL 10.28 RBC (3.93-5.22) 10^6/uL 4.64 Hgb (11.2-15.7) g/dL 13.9 Hct (36.0-46.0) % 42.2 MCV (80-95) fL 91 MCH (27.0-33.0) pg 30.0 MCHC (32.0-36.0) % 32.9 RDW (11.7-14.6) % 13.3 Plt Count (130-400) 10^3/uL 238 MPV (8.0-11.0) fL 12.3 H Immature Gran % 0.4 Neutrophils % 71.5 Lymphocytes % 18.5 Monocytes % 7.7 Eosinophils % 1.1 Basophils % 0.8 Nucleated RBC % (0.0-0.3) % 0.0 Absolute Neutrophils (1.2-6.7) 10^3/uL 7.36 H Absolute Lymphocytes (1.2-3.4) 10^3/uL 1.90 Absolute Monocytes (0.1-0.8) 10^3/uL 0.79 Absolute Eosinophils (0.0-0.7) 10^3/uL 0.11 Absolute Basophils (0.0-0.2) 10^3/uL 0.08 Sodium (136-145) mmol/L 137 Potassium (3.5-5.1) mmol/L 4.2 Chloride (98-107) mmol/L 98 Carbon Dioxide (21.0-32.0) mmol/L 31.7 Anion Gap (3-11) mmol/L 7.3 BUN (7-18) mg/dL 54 H Creatinine (0.55-1.02) mg/dL 1.9 H Est GFR (CKD-EPI 2020) (mL/min/1.73m2) 25.40 Glucose (74-106) mg/dL 177 H Calcium (8.5-10.1) mg/dL 9.2 Magnesium (1.8-2.4) mg/dL 2.2 Total Bilirubin (0.2-1.0) mg/dL 0.4 AST (15-37) U/L 28 ALT (14-59) U/L 26 Alkaline Phosphatase (46-116) U/L 86 Troponin I (<or=60) ng/L 141 H* NT-Pro-B Natriuret Pep (<300) pg/mL 2255 H Total Protein (6.4-8.2) g/dL 8.0 Albumin (3.4-5.0) g/dL 3.2 L HPI General Mode of arrival: EMS . Date/Time Provider Initiated Documentation: 12/31/22 09:28 . Limitations to Documentation: no limitations . Information obtained by: patient and EMS . HPI Narrative: 87yo F with HTN, HLD, NH, CAD s/p stent, HFrEF, DM, CKD3, presenting with chest pain. This morning woke up with dull left sided chest pain which resolved after home nitro; lasted ~15 minutes. Had similar pain yesterday morning which also resolved after nitro but yesterday was more severe. Pain yesterday felt similar to prior NH. Otherwise has not used her nitro in over a year. No chest pain currently. No shortness of breath at any point. She is otherwise in her usual state of health with no fevers, chills, rash, nasuea, vomiting, palpations, abdominal pain, LE edema, lightheadedness, or other concerns. Related Data Home Medications Medication Instructions Recorded Confirmed ascorbic acid (vitamin C) 500 mg 1,000 mg PO DAILY 07/15/12 12/31/22 tablet aspirin 81 mg tablet,delayed 81 mg PO DAILY 06/20/19 12/31/22 release (Adult Low Dose Aspirin) docusate sodium 100 mg capsule 100 mg PO BID #60 caps 10/14/19 12/31/22 (Colace) magnesium oxide 400 mg (241.3 mg 400 mg PO DAILY #10 tabs 10/14/19 12/31/22 magnesium) tablet potassium chloride 10 mEq 10 meq PO DAILY #90 caps 12/17/21 12/29/22 capsule,extended release artifi.tears(hypromellose)(PF) 0.3 1 drp ophthalmic (eye) HS 03/02/22 12/31/22 % eye drops psyllium husk 0.52 gram capsule 0.52 g PO QHS 03/02/22 12/31/22 warfarin 2 mg tablet 2 mg PO DAILY 03/15/22 12/29/22 metoprolol succinate 200 mg 200 mg PO DAILY #90 tabs 06/01/22 12/31/22 tablet,extended release 24 hr torsemide 20 mg tablet 20 mg PO BID #180 tabs 06/01/22 12/31/22 valsartan 40 mg tablet (Diovan) 40 mg PO DAILY #90 tabs 06/01/22 12/31/22 warfarin 4 mg tablet (Jantoven) 4 mg PO QPM #180 tabs 06/19/22 12/31/22 diltiazem HCl 240 mg capsule,24 240 mg PO DAILY #90 caps 06/28/22 12/31/22 hr,extended release pen needle, diabetic 32 gauge x #100 ea 08/17/22 12/29/22 (BD Ultra-Fine Juliann Pen Needle) metolazone 2.5 mg tablet 2.5 mg PO Q OTHER DAY #10 tabs 10/11/22 12/29/22 nitroglycerin 0.4 mg sublingual 0.4 mg sublingual Q 5 MIN PRN #25 11/18/22 12/31/22 tablet tab-caps blood-glucose meter,continuous #1 ea 11/30/22 12/29/22 (Dexcom G6 Banjo Repairer) blood-glucose sensor (Dexcom G6 #3 ea 11/30/22 12/29/22 Sensor device) insulin degludec 100 unit/mL (3 32 unit (0.32 mL) subcut QHS #15 mL 12/02/22 12/31/22 mL) subcutaneous pen (Tresiba FlexTouch U-100 insulin) ketoconazole 2 % topical cream 1 applic topical DAILY 3 months 12/29/22 12/31/22 #60 grams Previous Rx's Medication Instructions Recorded docusate sodium 100 mg capsule 100 mg PO BID #60 caps 10/14/19 (Colace) magnesium oxide 400 mg (241.3 mg 400 mg PO DAILY #10 tabs 10/14/19 magnesium) tablet potassium chloride 10 mEq 10 meq PO DAILY #90 caps 12/17/21 capsule,extended release metoprolol succinate 200 mg 200 mg PO DAILY #90 tabs 06/01/22 tablet,extended release 24 hr torsemide 20 mg tablet 20 mg PO BID #180 tabs 06/01/22 valsartan 40 mg tablet (Diovan) 40 mg PO DAILY #90 tabs 06/01/22 warfarin 4 mg tablet (Jantoven) 4 mg PO QPM #180 tabs 06/19/22 diltiazem HCl 240 mg capsule,24 240 mg PO DAILY #90 caps 06/28/22 hr,extended release pen needle, diabetic 32 gauge x #100 ea 08/17/2232 (BD Ultra-Fine Juliann Pen Needle) metolazone 2.5 mg tablet 2.5 mg PO Q OTHER DAY #10 tabs 10/11/22 nitroglycerin 0.4 mg sublingual 0.4 mg sublingual Q 5 MIN PRN #25 11/18/22 tablet tab-caps blood-glucose meter,continuous #1 ea 11/30/22 (Dexcom G6 Banjo Repairer) blood-glucose sensor (Dexcom G6 #3 ea 11/30/22 Sensor device) insulin degludec 100 unit/mL (3 32 unit (0.32 mL) subcut QHS #15 mL 12/02/22 mL) subcutaneous pen (Tresiba FlexTouch U-100 insulin) ketoconazole 2 % topical cream 1 applic topical DAILY 3 months 12/29/22 #60 grams Allergies Allergy/AdvReac Type Severity Reaction Status Date / Time Tetanus Vaccines and Toxoid Allergy Intermediate Verified 12/31/22 09:22 doxycycline AdvReac Severe GI UPSET Verified 12/31/22 09:22 verapamil AdvReac Severe dizziness Verified 12/31/22 09:22 doxazosin mesylate AdvReac Intermediate muscle Verified 12/31/22 09:22 [From Cardura] aches atenolol AdvReac Mild leg pain Verified 12/31/22 09:22 General Stated Complaint: Chest Pain GELA: 3 Review of Systems Narrative: see HPI PFSH All Active Problems (Updated 12/31/22 @ 15:20 by Teressa Ahmadi MD) Hyperlipidemia (Chronic) Mild obstructive sleep apnea (Acute 11/17/15) [facility] Chronic anticoagulation (Chronic) Hypertension (Chronic) CHF (congestive heart failure) (Chronic) Palliative care patient (Acute) Refusal of blood transfusions as patient is Uatsdin (Acute) 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) Ambulatory dysfunction (Acute) Goals of care, counseling/discussion (Acute) 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) has hearing aids Dyspnea (Acute) Fatigue (Acute) Elevated troponin (Acute) Atrial flutter (Acute) Weakness generalized (Acute) has not returned to baseline since stroke Edema (Chronic) right leg> left Morbid obesity (Acute) Open wound of both lower extremities (Acute) History of stroke in adulthood (Acute) CKD stage 3 due to type 2 diabetes mellitus (Acute) Poorly controlled type 2 diabetes mellitus (Acute) Advanced care planning/counseling discussion (Acute) Tendonitis involving right hip abductors (Acute) Weakness of right hip (Acute) Trochanteric bursitis, right hip (Acute) 80 mg Depo-Medrol injection: 12/23/2022 Onychomycosis (Acute) Diabetes mellitus with peripheral angiopathy (Acute) Venous (peripheral) insufficiency (Acute) Unstable angina (Acute) HTN (hypertension) (Chronic) CHF (congestive heart failure) (Chronic) Acute coronary syndrome (Acute) CKD (chronic kidney disease) (Chronic) Medical History Acute CVA (cerebrovascular accident) per pt. summer 2021 Acute deep vein thrombosis (DVT) of right lower extremity Acute on chronic systolic heart failure All medications reviewed Arthritis ASCVD (arteriosclerotic cardiovascular disease) (04/22/15) NH with out of hosp cardiac arrest LAD stent, LVEF 35% Atrial fibrillation (05/27/11) paroxysmal Oct 2009 Atrial fibrillation with rapid ventricular response Carpal tunnel syndrome on both sides s/p Left ECTR 01/30/2020 Chronic low back pain CKD (chronic kidney disease), stage II on cusp of stage 3 Complementary medicine Constipation Counseling on health promotion and disease prevention COVID-19 ruled out by clinical criteria Diabetes mellitus Diabetes mellitus out of control DNI (do not intubate) DNR (do not resuscitate) Eructation Essential hypertension (01/04/13) echo 2007 LVH uncontrolled BP (neg w/u for pheo) Excessive vitamin intake her naturopathic remedies have many times more than 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 Foot drop, left Fracture of head of right femur s/p R Anterior DARIEL (10/04/19) GERD (gastroesophageal reflux disease) Hearing loss Heart failure with reduced ejection fraction Hypertensive retinopathy Hyponatremia Impaired left ventricular function (~05/2019) [facility]; 35% Insomnia Iron deficiency anemia Leg length discrepancy Lives alone Low back pain Lumbar stenosis Nail dystrophy Noncompliance with medication regimen (09/26/12) NSTEMI (non-ST elevated myocardial infarction) (~05/2019) [facility] Pain in left thigh 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 Pedal edema POLST (Physician Orders for Life-Sustaining Treatment) Polypharmacy takes both allopathic and naturopathic meds Postoperative anemia due to acute blood loss Prerenal azotemia Renal insufficiency Retinopathy, background, nonproliferative, mild (01/01/16) Right arm pain Right groin pain Right knee pain Right rotator cuff tear Spinal stenosis at L4-L5 level Tachycardia Tachycardia Type II diabetes mellitus with complication, uncontrolled (05/14/14) UTI (urinary tract infection) Vaccine counseling she thinks her 03/17 TIA/CVA was due COVID-19 vaccine Surgical History History of appendectomy History of carpal tunnel surgery of left wrist (01/30/20) History of right hip replacement (10/04/19) Family History Brother Cancer Brother Cancer Leukemia Mother Asthma Sister Cancer Brother Dementia lives in SNF Son Prostate cancer Fall from ladder Son Paraplegic spinal paralysis motor vehicle crash Son No problems noted. Son No problems noted. 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 [employer] Pets and animals: Yes (one cat, Fancy) Pets and animals: cat(s) Current gender identity: female What is your relationship status?: How often do you talk on the phone with friends or family?: three or more times per week How often do you get together with friends or relatives?: three or more times per week How often do you attend anabaptist or sikh services?: 4 or more times per year Panel score (0-1 are the most socially isolated patients): 2 What type of physical activity do you participate in: assisted ambulation Duration: 15-30 minutes/day Frequency: does not exercise Faviola/Quaker: Uatsdin Special faviola needs: Yes (no transfusion) Agree to transfusion: No Seatbelt use: always Drive intox or ride w/intox class a regional drivers: No Do you feel safe at home: Yes Do you feel safe in your relationship?: Yes Exam Narrative Exam Narrative: General: Alert, well appearing, well nourished, in no acute distress. Head: Normocephalic, atraumatic Neck: Trachea midline, Neck supple. ENT: MMM. Cardiac: Irregular, no murmurs appreciated Resp: No respiratory distress. CTAB. Abd: Soft, non-distended, nontender : No suprapubic tenderness. Extremities: No deformities. 1+ symmetric edema BLE Neurologic: GCS 15. Moves all extremities freely against gravity Course Vital Signs Vital signs: Vital Signs Temperature 36.9 C 12/31/22 09:08 Pulse 120 H 12/31/22 09:08 Respiratory Rate 18 12/31/22 09:08 Blood Pressure 169/119 H 12/31/22 09:08 Pulse Oximetry 100 12/31/22 09:08 Temperature 36.9 C 12/31/22 09:08 Temperature Source Oral 12/31/22 09:08 Pulse 120 H 12/31/22 09:08 Respiratory Rate 18 12/31/22 09:08 Blood Pressure 169/119 H 12/31/22 09:08 Blood Pressure Position Supine 12/31/22 09:08 Pulse Oximetry 100 12/31/22 09:08 Oxygen Delivery Method Room Air 12/31/22 09:08 Oxygen Flow Rate 0 12/31/22 09:08 Pain Level 5 12/31/22 09:08 POCUS Exam (ED) Limited Cardiac Exam DATE OF EXAM: 12/31/22 TIME OF EXAM: 10:26 PROVIDER THAT PERFORMED THE STUDY: Teressa Ahmadi REASON FOR EXAM: Chest pain VISUALIZED STRUCTURES: Four Chambers and Interventricular septum VIEW OBTAINED: Apical 4-Chamber, Parasternal long-axis, Parasternal short-axis and Subxiphoid PERTINENT FINDINGS/IMPRESSION: No pericardial effusion Exam complete
[2022-12-31 09:49] LABS: Abs Immature Grans 0.04 10^3/uL (0.0-0.06); Absolute Basophil Count 0.08 10^3/uL (0.0-0.2); Absolute Eosinophil Count 0.11 10^3/uL (0.0-0.7); Absolute Monocyte Count 0.79 10^3/uL (0.1-0.8); Absolute Neutrophil Count 7.36 10^3/uL (1.2-6.7); Basophils % 0.8; Eosinophils % 1.1; HCT 42.2 % (36.0-46.0); HGB 13.9 g/dL (11.2-15.7); Immature Grans % 0.4; Lymphocytes % 18.5; MCHC 32.9 % (32.0-36.0); MCV 91 fL (80-95); MPV 12.3 fL (8.0-11.0); Monocytes % 7.7; Neutrophils % 71.5; Platelet Count 238 10^3/uL (130-400); RBC 4.64 10^6/uL (3.93-5.22); RDW 13.3 % (11.7-14.6); RDW-SD 44.9 fL; WBC 10.28 10^3/uL (4.4-10.8)
--- NOTE | 2022-12-31 09:54 | DI.RAD_ITS ---
Exam(s) XR PORTABLE CHEST AP EXAM: XR PORTABLE CHEST AP CLINICAL HISTORY: chest pain TECHNIQUE: 2D digital imaging was performed. COMPARISON: No exams were available for comparison FINDINGS: Leads overlie the chest. LUNGS: Clear. No pleural abnormality seen. HEART: Enlarged. Mitral annular calcification. Coronary artery stent. AORTA: Ectatic. BONES: We have changes. Soft tissues: Unremarkable. IMPRESSION: No acute findings. DATA REPOSITORY: RADIATION DOSE DELIVERED:
[2022-12-31] MEDS: Metoprolol CR 100 MG TABCR 200 MG PO (10:02)
[2022-12-31] MEDS: dilTIAZem CD 120 MG CAPCR 240 MG PO (10:02)
[2022-12-31 10:18] LABS: ALT 26 U/L (14-59); AST 28 U/L (15-37); Albumin 3.2 g/dL (3.4-5.0); Alkaline Phosphatase 86 U/L (46-116); Anion Gap 7.3 mmol/L (3-11); BUN 54 mg/dL (7-18); Bilirubin, Total 0.4 mg/dL (0.2-1.0); CO2 31.7 mmol/L (21.0-32.0); CREATININE 1.9 mg/dL (0.55-1.02); Calcium 9.2 mg/dL (8.5-10.1); Chloride 98 mmol/L (98-107); Glucose 177 mg/dL (74-106); Magnesium 2.2 mg/dL (1.8-2.4); NT-proBNP 2255 pg/mL (<300); Potassium 4.2 mmol/L (3.5-5.1); Sodium 137 mmol/L (136-145)
[2022-12-31 10:44] LABS: Troponin I 141 ng/L (<or=60)
[2022-12-31 12:09] LABS: Source Nasal/Nares
[2022-12-31 12:42] LABS: COVID-19 PCR Negative (Negative)
[2022-12-31 13:05] LABS: Troponin I 145 ng/L (<or=60)
--- NOTE | 2022-12-31 15:25 | HPE_ITS ---
Date of service: 12/31/22 Time of Service: 15:26 Assessment and Plan Assessment and plan (1) Unstable angina: Status: Acute Assessment and plan: Continue home asa. Cardiology at [facility] [place] reportedly recommended not starting plavix or heparinization unless chest pain occurs. Continue aspirin, BB, valsartan. Monitor on tele. Has prn nitroglycerin. Anticipate transfer to [facility] [place] tomorrow under the care of Dr Peoples, pending bed availability. NPO after midnight. (2) ASCVD (arteriosclerotic cardiovascular disease): Assessment and plan: S/p stent in the past. As above (3) Chronic HFrEF (heart failure with reduced ejection fraction): Status: Chronic Assessment and plan: Last LVEF is 36% by echo 02/2022. Continue metoprolol, valsartan, torsemide (4) Atrial fibrillation: Assessment and plan: Continue anticoagulation with warfarin. Continue rate control with diltiazem and metoprolol. Qualifiers: Atrial fibrillation type: longstanding persistent Qualified Code(s): I48.11 - Longstanding persistent atrial fibrillation (5) Hypertension: Status: Chronic Assessment and plan: Continue outpatient therapy with diltiazem, metoprolol, valsartan Qualifiers: Hypertension type: essential hypertension (6) IDDM (insulin dependent diabetes mellitus): Status: Chronic Assessment and plan: Half long acting insulin since the patient will be NPO after midnight. SSI. (7) DVT prophylaxis: Status: Acute Assessment and plan: Therapeutic anticoagulation w/ warfarin. INR 2.2 Continue warfarin. (8) Discharge planning issues: Status: Acute Assessment and plan: DNR/DNI Palliative care patient Anticipate transfer to [facility] [place] Cardiology (accepted to Dr Peoples's service) tomorrow History of Present Illness History of Present Illness Chief Complaint: Chest pain Narrative: Ms Bautista is an 87 year old female with PMHx of CAD s/p stent, chronic systolic CHF with LVEF of 36% by echo in 02/2022 as well as diastolic dysfunction, Aflutter on anticoagulation with warfarin, h/o CVA, hypertension, IDDM2, who presented to [facility] ED after two episodes of chest pain at home, one yesterday and one today. The chest pain was relieved with nitroglycerin. The patient received 325 mg of aspirin in the ED. Her troponin was 141 on presentation, then 145 and 146 on repeat, essentially flat. Her EKG showed Afib, LBBB (old), HR of 105. She had not had any recurrences of chest pain in the ED. The presentation was most c/w unstable angina. The case was discussed with [facility] [place] cardiology, and the patient was accepted in transfer to [facility] [place] for tomorrow by Dr Peoples, pending bed availability. We were instructed not to heparinize unless the patient developed recurrent chest pain. Ms Bautista states that both episodes of chest pain happened at rest. Yesterday, it happened while she was sitting. The CP was left sided and radiated to her L arm and her back. She did feel a tiny bit dizzy and nauseated with it. Denied palpitations and SOB during the episode. She took nitroglycerin and it resolved. This morning she woke up with a similar feeling, but it radiated lower in her chest rather than to the back and arm. Again, it resolved with nitroglycerin. She says she may have had another momentary twinge of chest pain today. I advised her to let us know if she has another episode. She is comfortable now. 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 (Acute) 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) Ambulatory dysfunction (Acute) Goals of care, counseling/discussion (Acute) 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) has hearing aids Dyspnea (Acute) Fatigue (Acute) Elevated troponin (Acute) Atrial flutter (Acute) Weakness generalized (Acute) has not returned to baseline since stroke Edema (Chronic) right leg> left Morbid obesity (Acute) Open wound of both lower extremities (Acute) History of stroke in adulthood (Acute) CKD stage 3 due to type 2 diabetes mellitus (Acute) Poorly controlled type 2 diabetes mellitus (Acute) Advanced care planning/counseling discussion (Acute) Tendonitis involving right hip abductors (Acute) Weakness of right hip (Acute) Trochanteric bursitis, right hip (Acute) 80 mg Depo-Medrol injection: 12/23/2022 Onychomycosis (Acute) Diabetes mellitus with peripheral angiopathy (Acute) Venous (peripheral) insufficiency (Acute) Unstable angina (Acute) HTN (hypertension) (Chronic) CHF (congestive heart failure) (Chronic) Acute coronary syndrome (Acute) CKD (chronic kidney disease) (Chronic) Medical History Acute CVA (cerebrovascular accident) per pt. summer 2021 Acute deep vein thrombosis (DVT) of right lower extremity Acute on chronic systolic heart failure All medications reviewed Arthritis ASCVD (arteriosclerotic cardiovascular disease) (04/22/15) DC with out of hosp cardiac arrest LAD stent, LVEF 35% Atrial fibrillation (05/27/11) paroxysmal Oct 2009 Atrial fibrillation with rapid ventricular response Carpal tunnel syndrome on both sides s/p Left ECTR 01/30/2020 Chronic low back pain CKD (chronic kidney disease), stage II on cusp of stage 3 Complementary medicine Constipation Counseling on health promotion and disease prevention COVID-19 ruled out by clinical criteria Diabetes mellitus Diabetes mellitus out of control DNI (do not intubate) DNR (do not resuscitate) Eructation Essential hypertension (01/04/13) echo 2007 LVH uncontrolled BP (neg w/u for pheo) Excessive vitamin intake her naturopathic remedies have many times more than VERSE WRITER of vitamins Foot drop, left Fracture of head of right femur s/p R Anterior DARIEL (10/04/19) GERD (gastroesophageal reflux disease) Hearing loss Heart failure with reduced ejection fraction Hypertensive retinopathy Hyponatremia Impaired left ventricular function (~05/2019) [facility] [place]; 35% Insomnia Iron deficiency anemia Leg length discrepancy Lives alone Low back pain Lumbar stenosis Nail dystrophy Noncompliance with medication regimen (09/26/12) NSTEMI (non-ST elevated myocardial infarction) (~05/2019) [facility] [place] Pain in left thigh 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 Pedal edema POLST (Physician Orders for Life-Sustaining Treatment) Polypharmacy takes both allopathic and naturopathic meds Postoperative anemia due to acute blood loss Prerenal azotemia Renal insufficiency Retinopathy, background, nonproliferative, mild (01/01/16) Right arm pain Right groin pain Right knee pain Right rotator cuff tear Spinal stenosis at L4-L5 level Tachycardia Tachycardia Type II diabetes mellitus with complication, uncontrolled (05/14/14) UTI (urinary tract infection) Vaccine counseling she thinks her 03/17 TIA/CVA was due COVID-19 vaccine Surgical History History of appendectomy History of carpal tunnel surgery of left wrist (01/30/20) History of right hip replacement (10/04/19) Family History Brother Cancer Brother Cancer Leukemia Mother Asthma Sister Cancer Brother Dementia lives in SNF Son Prostate cancer Fall from ladder Son Paraplegic spinal paralysis motor vehicle crash Son No problems noted. Son No problems noted. 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 [employer] Pets and animals: Yes (one cat, Fancy) Pets and animals: cat(s) Current gender identity: female What is your relationship status?: How often do you talk on the phone with friends or family?: three or more times per week How often do you get together with friends or relatives?: three or more times per week How often do you attend amish or presybeterian services?: 4 or more times per year Panel score (0-1 are the most socially isolated patients): 2 What type of physical activity do you participate in: assisted ambulation Duration: 15-30 minutes/day Frequency: does not exercise Faviola/Pentecostalism: Scientologist Special faviola needs: Yes (no transfusion) Agree to transfusion: No Seatbelt use: always Drive intox or ride w/intox pile 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 barge mounted: No Do you feel safe at home: Yes Do you feel safe in your relationship?: Yes Meds Allergies and Home Medications Allergies Allergy/AdvReac Type Severity Reaction Status Date / Time Tetanus Vaccines and Toxoid Allergy Intermediate Verified 12/31/22 09:22 doxycycline AdvReac Severe GI UPSET Verified 12/31/22 09:22 verapamil AdvReac Severe dizziness Verified 12/31/22 09:22 doxazosin mesylate AdvReac Intermediate muscle Verified 12/31/22 09:22 [From Cardura] aches atenolol AdvReac Mild leg pain Verified 12/31/22 09:22 Home Medications Medication Instructions Recorded Confirmed Type ascorbic acid (vitamin C) 500 mg 1,000 mg PO DAILY 07/15/12 12/31/22 History tablet aspirin 81 mg tablet,delayed 81 mg PO DAILY 06/20/19 12/31/22 History release (Adult Low Dose Aspirin) docusate sodium 100 mg capsule 100 mg PO BID #60 caps 10/14/19 12/31/22 Rx (Colace) magnesium oxide 400 mg (241.3 mg 400 mg PO DAILY #10 tabs 10/14/19 12/31/22 Rx magnesium) tablet potassium chloride 10 mEq 10 meq PO DAILY #90 caps 12/17/21 12/29/22 Rx capsule,extended release artifi.tears(hypromellose)(PF) 0.3 1 drp ophthalmic (eye) HS 03/02/22 12/31/22 History % eye drops psyllium husk 0.52 gram capsule 0.52 g PO QHS 03/02/22 12/31/22 History warfarin 2 mg tablet 2 mg PO DAILY 03/15/22 12/29/22 History metoprolol succinate 200 mg 200 mg PO DAILY #90 tabs 06/01/22 12/31/22 Rx tablet,extended release 24 hr torsemide 20 mg tablet 20 mg PO BID #180 tabs 06/01/22 12/31/22 Rx valsartan 40 mg tablet (Diovan) 40 mg PO DAILY #90 tabs 06/01/22 12/31/22 Rx warfarin 4 mg tablet (Jantoven) 4 mg PO QPM #180 tabs 06/19/22 12/31/22 Rx diltiazem HCl 240 mg capsule,24 240 mg PO DAILY #90 caps 06/28/22 12/31/22 Rx hr,extended release pen needle, diabetic 32 gauge x #100 ea 08/17/22 12/29/22 Rx 5/32 (BD Ultra-Fine Juliann Pen Needle) metolazone 2.5 mg tablet 2.5 mg PO Q OTHER DAY #10 tabs 10/11/22 12/29/22 Rx nitroglycerin 0.4 mg sublingual 0.4 mg sublingual Q 5 MIN PRN #25 11/18/22 12/31/22 Rx tablet tab-caps blood-glucose meter,continuous #1 ea 11/30/22 12/29/22 Rx (Dexcom G6 Him Clerk) blood-glucose sensor (Dexcom G6 #3 ea 11/30/22 12/29/22 Rx Sensor device) insulin degludec 100 unit/mL (3 32 unit (0.32 mL) subcut QHS #15 mL 12/02/22 12/31/22 Rx mL) subcutaneous pen (Tresiba FlexTouch U-100 insulin) ketoconazole 2 % topical cream 1 applic topical DAILY 3 months 12/29/22 12/31/22 Rx #60 grams Exam Narrative Exam Narrative: General: Pleasant elderly female who is sitting up comfortably in bed, A&Ox3, NAD Neurological: A&Ox3, no focal deficits Psychiatric: Appropriate speech pattern/content Skin: Visible skin intact HEENT: Atraumatic, normocephalic, EOMI, dry MM, clear oropharynx, no submandibular or cervical lymphadenopathy, no goiter or JVD. Cardiovascular: irregularly irregular rhythm, no m/r/g Lungs: CTAB Gastrointestinal: soft, nontender, nondistended Genitourinary: deferred Extremities: 2+ BLE edema, symmetric, trace pedal pulses B, no c/c, dry skin. No lesions on B feet. Results Imaging Additional studies: EKG: Afib, HR 105, LBBB (Old) CXR: official read: no acute findings. Per my read, there is evidence of cardiomegaly and pulmonary edema. Labs 12/31/22 09:40 12/31/22 09:40 Labs: Laboratory Results - last 24 hr 12/31/22 12/31/22 12/31/22 09:40 09:40 11:40 WBC 10.28 RBC 4.64 Hgb 13.9 Hct 42.2 MCV 91 MCH 30.0 MCHC 32.9 RDW 13.3 Plt Count 238 MPV 12.3 H Immature Gran % 0.4 Neutrophils % 71.5 Lymphocytes % 18.5 Monocytes % 7.7 Eosinophils % 1.1 Basophils % 0.8 Nucleated RBC % 0.0 Absolute Neutrophils 7.36 H Absolute Lymphocytes 1.90 Absolute Monocytes 0.79 Absolute Eosinophils 0.11 Absolute Basophils 0.08 Sodium 137 Potassium 4.2 Chloride 98 Carbon Dioxide 31.7 Anion Gap 7.3 BUN 54 H Creatinine 1.9 H Est GFR (CKD-EPI 2020) 25.40 Glucose 177 H Calcium 9.2 Magnesium 2.2 Total Bilirubin 0.4 AST 28 ALT 26 Alkaline Phosphatase 86 Troponin I 141 H* NT-Pro-B Natriuret Pep 2255 H Total Protein 8.0 Albumin 3.2 L COVID-19 Source Nasal/Nares SARS-CoV-2 (PCR) Negative 12/31/22 12:40 WBC RBC Hgb Hct MCV MCH MCHC RDW Plt Count MPV Immature Gran % Neutrophils % Lymphocytes % Monocytes % Eosinophils % Basophils % Nucleated RBC % Absolute Neutrophils Absolute Lymphocytes Absolute Monocytes Absolute Eosinophils Absolute Basophils Sodium Potassium Chloride Carbon Dioxide Anion Gap BUN Creatinine Est GFR (CKD-EPI 2020) Glucose Calcium Magnesium Total Bilirubin AST ALT Alkaline Phosphatase Troponin I 145 H* NT-Pro-B Natriuret Pep Total Protein Albumin COVID-19 Source SARS-CoV-2 (PCR) Last Vital Signs Temp 36.9 C 12/31/22 09:08 Pulse 81 12/31/22 15:08 Resp 24 12/31/22 15:08 BP 175/77 H 12/31/22 15:08 Pulse Ox 97 12/31/22 15:08 Time Spent Time spent with Patient: 55-74 minutes Time was spent: preparing to see the patient(eg.review tests), obtaining and/or reviewing separately otained hiistory, ordering medications,tests, procedures, referring, communicating with other health health care / medical job titles, indepentently interpreting results, counseling the patient and care coordination
[2022-12-31 15:57] LABS: INR 2.2 (0.9-1.1); Prothrombin Time 22.3 sec (9.3-11.0)
[2022-12-31 16:08] LABS: Troponin I 146 ng/L (<or=60)
[2022-12-31 16:18] LABS: D-Dimer 1864 ng/mlFEU (<500)
--- NOTE | 2022-12-31 16:30 | RT.EKG_ITS ---
APPROVED REPORT Exam: Resting ECG Reason for Exam: chest pain follow up Patient Location: I HR:83 bpm ECG Measurements Heart Rate 83 AXIS NV [id number] P [id number] QRSd 133 QRS -48 QT 401 T 150 QTc 472 Conclusion Atrial fibrillation...V-rate 67-110, irreg A-activity Left bundle branch block...QRSd>120, broad/notched R
[2022-12-31 20:42] LABS: Troponin I 149 ng/L (<or=60)
[2022-12-31] MEDS: Docusate Sodium 100 MG CAP PO (21:29)
[2022-12-31] MEDS: Refresh PLUS Eye Drops 0.4ml 1 EACH OP (21:29)
[2022-12-31] MEDS: Torsemide 20 MG TAB PO (21:29)
[2022-12-31] MEDS: Insulin Glargine 300 UNITS/3 ML PEN 13 UNITS SC (21:30)
[2022-12-31] MEDS: Warfarin 1 MG TAB 2 MG PO (21:31)
[2023-01-01 03:39] VITALS: BP 117/82; PULSE 82; RESP 18; TEMP 36.3; O2SAT 97
[2023-01-01 06:38] LABS: Abs Immature Grans 0.04 10^3/uL (0.0-0.06); Absolute Basophil Count 0.08 10^3/uL (0.0-0.2); Absolute Eosinophil Count 0.14 10^3/uL (0.0-0.7); Absolute Monocyte Count 0.86 10^3/uL (0.1-0.8); Absolute Neutrophil Count 6.65 10^3/uL (1.2-6.7); Basophils % 0.8; Eosinophils % 1.5; HCT 40.4 % (36.0-46.0); HGB 13.3 g/dL (11.2-15.7); Immature Grans % 0.4; Lymphocytes % 18.8; MCH 30.1 pg (27.0-33.0); MCHC 32.9 % (32.0-36.0); MCV 91 fL (80-95); MPV 12.5 fL (8.0-11.0); Neutrophils % 69.5; Platelet Count 218 10^3/uL (130-400); RBC 4.42 10^6/uL (3.93-5.22); RDW 13.2 % (11.7-14.6); RDW-SD 44.8 fL; WBC 9.57 10^3/uL (4.4-10.8)
[2023-01-01 06:49] VITALS: BP 120/63; PULSE 60; RESP 18; TEMP 36.5; O2SAT 97
[2023-01-01 06:59] LABS: Prothrombin Time 20.2 sec (9.3-11.0)
[2023-01-01 07:11] LABS: BUN 47 mg/dL (7-18); Calcium 8.7 mg/dL (8.5-10.1); Calculated LDL 159 mg/dL (<100); Chloride 102 mmol/L (98-107); Cholesterol 222 mg/dL (<200); Estimated GFR 23.88 (mL/min/1.73m2); Glucose 144 mg/dL (74-106); HDL Cholesterol 46 mg/dL (40-60); Magnesium 2.2 mg/dL (1.8-2.4); Potassium 3.5 mmol/L (3.5-5.1); Sodium 140 mmol/L (136-145); TSH (W/Ref FT4) 6.63 uIU/mL (0.36-3.74); Triglyceride 88 mg/dL (<150)
[2023-01-01 07:36] LABS: FREE T4 1.02 ng/dL (0.76-1.46)
[2023-01-01] MEDS: Ketoconazole 2% CREAM 15 GM TUBE TP (08:58)
[2023-01-01 11:49] VITALS: BP 139/89; PULSE 89; RESP 18; TEMP 36.4; O2SAT 98
--- NOTE | 2023-01-01 15:03 | DSE_ITS ---
Date of service: 01/01/23 Time of Service: 15:03 DS: Diagnosis Discharge Diagnosis (1) Unstable angina: Status: Acute Asessment and Plan: -Continueed home asa. -Cardiology at [facility] [place] reportedly recommended not starting plavix or heparinization unless chest pain occurs -patient remained chest pain free during hospitalization -Continued aspirin, BB, valsartan. -no canged noted on tele -did not required prn nitroglycerin. -has been NPO since midnight 01/01 (2) ASCVD (arteriosclerotic cardiovascular disease): (3) Chronic HFrEF (heart failure with reduced ejection fraction): Status: Chronic Asessment and Plan: -Last LVEF is 36% by echo 02/2022. -Continued metoprolol, valsartan, torsemide (4) Atrial fibrillation: (5) Hypertension: Status: Chronic (6) IDDM (insulin dependent diabetes mellitus): Status: Chronic Discharge Plan Disposition Patient Disposition: Transfer-Acute Inpatient Care Specific Acute Inpt Facility: [facility] Condition: Stable Discharge Details Reason For Visit: [place] Admit Date/Time: 12/31/22 15:21 Admit Provider: Cristin Finley Attending Provider: Cristin Finley Primary Care Provider: Rad Yeh Home Meds and New Rx's Prescriptions: No Action (DME) pen needle, diabetic [BD Ultra-Fine Juliann Pen Needle] 32 gauge x 5/32 needle See Dose Instructions .ROUTE .MEDSUPPLY Qty: 100 3RF Dose Instruction: As directed Rx Instructions: inject once/day metoprolol succinate 200 mg tablet extended release 24 hr 200 mg PO DAILY Qty: 90 3RF Rx Instructions: prefers to take one tab torsemide 20 mg tablet 20 mg PO BID Qty: 180 3RF valsartan [Diovan] 40 mg tablet 40 mg PO DAILY Qty: 90 3RF nitroglycerin 0.4 mg tablet, sublingual 0.4 mg Sublingual Q 5 MIN PRN Qty: 25 0RF Patient Comments: 11/06/18 Pt states she has not taken +1month. PG ketoconazole 2 % cream 1 applic topical DAILY 90 Days Qty: 60 0RF Rx Instructions: Apply to toenails once daily ascorbic acid (vitamin C) 500 MG tablet 1,000 mg PO DAILY Hold Instructions: Patient reports getting her vitamin C from multivitamin. aspirin [Adult Low Dose Aspirin] 81 mg tablet,delayed release (DR/EC) 81 mg PO DAILY warfarin 2 mg tablet 2 mg PO DAILY Protocol: Dose Management Condition: Tuesday Dose/Route: 4 mg Instruction: 1 x 4 mg tablet Condition: Tuesday Dose/Route: 4 mg Instruction: 1 x 4 mg tablet Condition: Tuesday Dose/Route: 4 mg Instruction: 1 x 4 mg tablet Condition: Tuesday Dose/Route: 4 mg Instruction: 1 x 4 mg tablet Condition: Dose/Route: 4 mg Instruction: 1 x 4 mg tablet Condition: Tuesday Dose/Route: 4 mg Instruction: 1 x 4 mg tablet Condition: Tuesday Dose/Route: 4 mg Instruction: 1 x 4 mg tablet Protocol Text: Adjustment Start Date: Tuesday12/27/22 INR Value: 2.2 INR Date: 12/27/22 Recheck Date: 01/10/23 warfarin [Jantoven] 4 mg tablet 4 mg PO QPM Qty: 180 3RF Protocol: Dose Management Condition: Tuesday Dose/Route: 4 mg Instruction: 1 x 4 mg tablet Condition: Tuesday Dose/Route: 4 mg Instruction: 1 x 4 mg tablet Condition: Tuesday Dose/Route: 4 mg Instruction: 1 x 4 mg tablet Condition: Tuesday Dose/Route: 4 mg Instruction: 1 x 4 mg tablet Condition: Dose/Route: 4 mg Instruction: 1 x 4 mg tablet Condition: Tuesday Dose/Route: 4 mg Instruction: 1 x 4 mg tablet Condition: Tuesday Dose/Route: 4 mg Instruction: 1 x 4 mg tablet Protocol Text: Adjustment Start Date: Tuesday12/27/22 INR Value: 2.2 INR Date: 12/27/22 Recheck Date: 01/10/23 Rx Instructions: M, F 2mg All other days 4mg diltiazem HCl 240 mg capsule,extended release 24 hr 240 mg PO DAILY Qty: 90 3RF (DME) Dexcom G6 High Risk Ob Misc See Rx Instructions .MEDSUPPLY Qty: 1 0RF Rx Instructions: As directed (DME) Dexcom G6 Sensor Device See Rx Instructions .MEDSUPPLY Qty: 3 11RF Rx Instructions: As directed insulin degludec [Tresiba FlexTouch U-100] 100 unit/mL (3 mL) insulin pen 32 unit SC QHS Qty: 15 3RF psyllium husk 0.52 gram Capsule 0.52 g PO QHS artifi.tears(hypromellose)(PF) 0.3 % Drops 1 drp OPHTHALMIC (EYE) HS docusate sodium [Colace] 100 mg Capsule 100 mg PO BID Qty: 60 0RF magnesium oxide 400 mg (241.3 mg magnesium) Tablet 400 mg PO DAILY Qty: 10 0RF Hold Instructions: Home Medication placed on hold at Doctor's office Discharge Instructions Activity:: Activity as Tolerated Equipment/Supplies:: No Equipment Needed Diet:: As Tolerated Discharge Orders Discharge Orders: Discharge Order (Routine); Ordered 01/01/23 Ordered By: Bryce Live DS: Summary Time Spent with Patient providing and/or coordinating discharge services: Greater than 30 minutes (35min) Status at Discharge Functional status at discharge: independent ambulation Overall status at discharge: patient is back to baseline Mental Status: mental status grossly normal Speech and Movement: speech and movement normal Mood: congruent mood Affect: normal affect Exam Narrative Exam Narrative: Well appearing older female sitting up in the chair in no acute distress, AOx4, heart RRR, lungs CTAB Psych Mental Status: mental status grossly normal Speech and Movement: speech and movement normal Mood: congruent mood Affect: normal affect DS: Data Vitals/I&O Vitals and I&O: Vital Signs Temperature 97.5 F L 01/01/23 11:49 Temperature Source Tympanic 01/01/23 11:49 Pulse 89 01/01/23 11:49 Pulse Rhythm Irregular 12/31/22 23:14 Pulse 92 H 12/31/22 16:20 Respiratory Rate 18 01/01/23 11:49 Respiratory Effort Normal, Non-Labored 12/31/22 23:14 Respiratory Depth Normal 12/31/22 23:14 Respiratory Pattern Normal 12/31/22 23:14 Blood Pressure 139/89 01/01/23 11:49 Blood Pressure Mean 113 12/31/22 16:16 Blood Pressure Position Supine 12/31/22 09:08 Pulse Oximetry 98 01/01/23 11:49 Oxygen Delivery Method Room Air 01/01/23 11:49 Oxygen Flow Rate 0 01/01/23 11:49 Pain Level 0 01/01/23 11:49 Intake & Output 12/31/22 01/01/23 01/01/23 17:59 05:59 17:59 Output Total 200 / 200 400 / 400 Balance -200 / -200 -400 / -400 Weight 184 lb 3.2 oz 184 lb 15.485 oz Output: Urine 200 / 200 400 / 400 Other: Urine Color Yellow Yellow Urine Appearance Clear Clear Clear Urine Odor Normal Normal Voiding Methods Toilet Toilet Data Completed and Pending Labs on day of discharge: Labs from last 24 hours 01/01/23 01/01/23 01/01/23 05:40 05:40 05:40 WBC 9.57 RBC 4.42 Hgb 13.3 Hct 40.4 MCV 91 MCH 30.1 MCHC 32.9 RDW 13.2 Plt Count 218 MPV 12.5 H Immature Gran % 0.4 Neutrophils % 69.5 Lymphocytes % 18.8 Monocytes % 9.0 Eosinophils % 1.5 Basophils % 0.8 Nucleated RBC % 0.0 Absolute Neutrophils 6.65 Absolute Lymphocytes 1.80 Absolute Monocytes 0.86 H Absolute Eosinophils 0.14 Absolute Basophils 0.08 PT 20.2 H INR 2.0 H D-Dimer Sodium 140 Potassium 3.5 Chloride 102 Carbon Dioxide 31.0 Anion Gap 7.0 BUN 47 H Creatinine 2.0 H Est GFR (CKD-EPI 2020) 23.88 Glucose 144 H Calcium 8.7 Magnesium 2.2 Troponin I Triglycerides 88 Total Cholesterol 222 H LDL Cholesterol, Calc 159 H HDL Cholesterol 46 TSH 6.63 H Free T4 1.02 12/31/22 12/31/22 12/31/22 20:15 15:40 15:40 WBC RBC Hgb Hct MCV MCH MCHC RDW Plt Count MPV Immature Gran % Neutrophils % Lymphocytes % Monocytes % Eosinophils % Basophils % Nucleated RBC % Absolute Neutrophils Absolute Lymphocytes Absolute Monocytes Absolute Eosinophils Absolute Basophils PT 22.3 H INR 2.2 H D-Dimer 1864 H Sodium Potassium Chloride Carbon Dioxide Anion Gap BUN Creatinine Est GFR (CKD-EPI 2020) Glucose Calcium Magnesium Troponin I 149 H* 146 H* Triglycerides Total Cholesterol LDL Cholesterol, Calc HDL Cholesterol [facility]SH [facility] All Active Problems (Updated 12/31/22 @ 18:58 by Cristin Finley MD) IDDM (insulin dependent diabetes mellitus) (Chronic) DVT prophylaxis (Acute) Discharge planning issues (Acute) Hyperlipidemia (Chronic) Mild obstructive sleep apnea (Acute 11/17/15) NCH Chronic anticoagulation (Chronic) Hypertension (Chronic) CHF (congestive heart failure) (Chronic) Palliative care patient (Acute) Refusal of blood transfusions as patient is Episcopalian (Acute) 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) Ambulatory dysfunction (Acute) Goals of care, counseling/discussion (Acute) 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) has hearing aids Dyspnea (Acute) Fatigue (Acute) Elevated troponin (Acute) Atrial flutter (Acute) Weakness generalized (Acute) has not returned to baseline since stroke Edema (Chronic) right leg> left Morbid obesity (Acute) Open wound of both lower extremities (Acute) History of stroke in adulthood (Acute) CKD stage 3 due to type 2 diabetes mellitus (Acute) Poorly controlled type 2 diabetes mellitus (Acute) Advanced care planning/counseling discussion (Acute) Tendonitis involving right hip abductors (Acute) Weakness of right hip (Acute) Trochanteric bursitis, right hip (Acute) 80 mg Depo-Medrol injection: 12/23/2022 Onychomycosis (Acute) Diabetes mellitus with peripheral angiopathy (Acute) Venous (peripheral) insufficiency (Acute) Unstable angina (Acute) HTN (hypertension) (Chronic) CHF (congestive heart failure) (Chronic) Acute coronary syndrome (Acute) CKD (chronic kidney disease) (Chronic) Medical History Acute CVA (cerebrovascular accident) per pt. summer 2021 Acute deep vein thrombosis (DVT) of right lower extremity Acute on chronic systolic heart failure All medications reviewed Arthritis ASCVD (arteriosclerotic cardiovascular disease) (04/22/15) CA with out of hosp cardiac arrest LAD stent, LVEF 35% Atrial fibrillation (05/27/11) paroxysmal Oct 2009 Atrial fibrillation with rapid ventricular response Carpal tunnel syndrome on both sides s/p Left ECTR 01/30/2020 Chronic low back pain CKD (chronic kidney disease), stage II on cusp of stage 3 Complementary medicine Constipation Counseling on health promotion and disease prevention COVID-19 ruled out by clinical criteria Diabetes mellitus Diabetes mellitus out of control DNI (do not intubate) DNR (do not resuscitate) Eructation Essential hypertension (01/04/13) echo 2008 LVH uncontrolled BP (neg w/u for pheo) Excessive vitamin intake her naturopathic remedies have many times more than AUTHORIZATION REP of vitamins Foot drop, left Fracture of head of right femur s/p R Anterior DARIEL (10/04/19) GERD (gastroesophageal reflux disease) Hearing loss Heart failure with reduced ejection fraction Hypertensive retinopathy Hyponatremia Impaired left ventricular function (~05/2019) [facility] [place]; 35% Insomnia Iron deficiency anemia Leg length discrepancy Lives alone Low back pain Lumbar stenosis Nail dystrophy Noncompliance with medication regimen (09/26/12) NSTEMI (non-ST elevated myocardial infarction) (~05/2019) [facility] [place]-2016 Pain in left thigh 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 Pedal edema POLST (Physician Orders for Life-Sustaining Treatment) Polypharmacy takes both allopathic and naturopathic meds Postoperative anemia due to acute blood loss Prerenal azotemia Renal insufficiency Retinopathy, background, nonproliferative, mild (01/01/16) Right arm pain Right groin pain Right knee pain Right rotator cuff tear Spinal stenosis at L4-L5 level Tachycardia Tachycardia Type II diabetes mellitus with complication, uncontrolled (05/14/14) UTI (urinary tract infection) Vaccine counseling she thinks her 03/17 TIA/CVA was due COVID-19 vaccine Surgical History History of appendectomy History of carpal tunnel surgery of left wrist (01/30/20) History of right hip replacement (10/04/19) Family History Brother Cancer Brother Cancer Leukemia Mother Asthma Sister Cancer Brother Dementia lives in SNF Son Prostate cancer Fall from ladder Son Paraplegic spinal paralysis motor vehicle crash Son No problems noted. Son No problems noted. 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 [employer] Pets and animals: Yes (one cat, Fancy) Pets and animals: cat(s) Current gender identity: female What is your relationship status?: How often do you talk on the phone with friends or family?: three or more times per week How often do you get together with friends or relatives?: three or more times per week How often do you attend rastafarian or jehovah's witness services?: 4 or more times per year Panel score (0-1 are the most socially isolated patients): 2 What type of physical activity do you participate in: assisted ambulation Duration: 15-30 minutes/day Frequency: does not exercise Faviola/Taoism: Episcopalian Special faviola needs: Yes (no transfusion) Agree to transfusion: No Seatbelt use: always Drive intox or ride w/intox team driver: No Do you feel safe at home: Yes Do you feel safe in your relationship?: Yes Time Spent with Patient Time Spent with Patient: <45 minutes (35min) Time was spent: preparing to see the patient(eg.review tests), obtaining and/or reviewing separately otained hiistory, referring, communicating with other health geriatric personal care aide, indepentently interpreting results, counseling the patient and care coordination
[2023-01-01 15:38] VITALS: PULSE 140
[2023-01-01] MEDS: Metoprolol 5 MG/5 ML VIAL (15:38)
== END 2023-01-01 15:39 | disposition short-term general hospital (02) | DRG 303 ==
LOC: ER 16:36 → MS 01-01 15:02
PROVIDERS: Admitting Provider Internal Medicine; Emergency Provider Student in an Organized Health Care Education/Training Program; PCP Family Medicine; Visit Provider Internal Medicine
DX: I25.110 Atherosclerotic heart disease of native coronary artery with unstable angina pectoris (principal); I48.11 Longstanding persistent atrial fibrillation; I50.22 Chronic systolic (congestive) heart failure; I13.0 Hypertensive heart and chronic kidney disease with heart failure and stage 1 through stage 4 chronic kidney disease, or unspecified chronic kidney disease; I48.92 Unspecified atrial flutter; Z79.82 Long term (current) use of aspirin; Z79.01 Long term (current) use of anticoagulants; I25.2 Old myocardial infarction; E78.5 Hyperlipidemia, unspecified; E11.22 Type 2 diabetes mellitus with diabetic chronic kidney disease; N18.30 Chronic kidney disease, stage 3 unspecified; I44.7 Left bundle-branch block, unspecified; Z79.4 Long term (current) use of insulin; Z66 Do not resuscitate; Z86.73 Personal history of transient ischemic attack (TIA), and cerebral infarction without residual deficits; G47.33 Obstructive sleep apnea (adult) (pediatric); H90.3 Sensorineural hearing loss, bilateral; E66.01 Morbid (severe) obesity due to excess calories; Z68.36 Body mass index [BMI] 36.0-36.9, adult; E11.65 Type 2 diabetes mellitus with hyperglycemia; E11.51 Type 2 diabetes mellitus with diabetic peripheral angiopathy without gangrene; I87.8 Other specified disorders of veins; M70.61 Trochanteric bursitis, right hip; G89.29 Other chronic pain; M54.50 Low back pain, unspecified; M21.372 Foot drop, left foot; K21.9 Gastro-esophageal reflux disease without esophagitis; H35.039 Hypertensive retinopathy, unspecified eye; D50.9 Iron deficiency anemia, unspecified; G47.00 Insomnia, unspecified
CPT/HCPCS: 36415; 80048; 80053; 80061; 87635; 93005; 99285; 71045; 83735; 83880; 84439; 84443; 84484; 85025; 85379; 85610; 93010; 99223; 99239; J3490